=== PATIENT | male | born 1955 | race Caucasian/White ===

== ENCOUNTER 2021-11-22 08:16 | Outpatient (CLI) | payer MEDICARE, BC, SELFPAY ==
[2021-11-22 08:48] LABS: Creatinine* 1.1 mg/dL (0.5-1.5); Estimated Glomerular Filt Rate 75 ml/min
--- NOTE | 2021-11-22 09:00 | CRLHL7_ITS ---
For Patients: As a result of the Century Cures Act, medical imaging exams and procedure reports are released immediately into your electronic medical record. You may view this report before your referring provider. If you have questions, please contact your health care provider. Indication: ABD PAIN HX HODGKINS LYMPHOMA Technique: Postcontrast CT abdomen and pelvis. 116 cc Isovue 370 intravenous contrast. Please note that all CT scans at this facility use dose modulation, iterative reconstruction, and/or weight-based dosing when appropriate to reduce radiation dose to as low as reasonably achievable. Comparison: 09/14/2021 Findings: Minimal scarring in both lung bases. No pleural effusion. Postoperative changes of aortic aneurysm repair and aortic valve repair. No intrahepatic mass. Mild hepatic steatosis. No stigmata of cirrhosis. Gallbladder is normal. No calcified gallstones or biliary obstruction. Adrenal glands are normal. Spleen is unremarkable. Incidental splenule is present. There is mild atrophy of the pancreas. No hiatal hernia. Simple cyst lateral aspect right kidney measuring 1.6 cm. Sub centimeters cyst lower pole left kidney. No hydronephrosis. Vascular calcifications within the lower aorta and common iliac arteries. The bladder is normal. Prostate is mildly prominent with coarse calcifications. Postoperative changes of partial colectomy with intact anastomosis in the midline of the pelvis. No bowel obstruction or free air. No free fluid or abscess. Normal appendix. Stable appearance of the inguinal canal bilaterally. The ureters are normal. No suspicious lymph nodes. Stable superficial fluid collection associated with the midline abdominal incision measuring 4.6 x 2.5 cm. Stable benign bone island within the left medial pubic bone. Similar bone islands also within the left iliac bone. 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 Degenerative changes both hips. Impression: No intra-abdominal or intrapelvic adenopathy. No splenomegaly. No significant change in the postoperative seroma involving the anterior abdominal wall. Chronic elevation right hemidiaphragm. No hepatic mass or ascites. Stable postoperative changes partial colectomy without bowel obstruction or inflammatory change. Please note that all CT scans at this facility use dose modulation, iterative reconstruction, and/or weight-based dosing when appropriate to reduce radiation dose to as low as reasonably achievable. Dictated by Shabbir King MD @ 11/22/2021 10:26:07 AM (Electronically Signed)
== END 2021-11-22 08:17 | disposition home or self-care (01) ==
LOC: CT 08:19
PROVIDERS: PCP Internal Medicine; Visit Provider Surgery
DX: R10.9 Unspecified abdominal pain (principal)
CPT/HCPCS: 36415; 74177; 82565; Q9967

== ENCOUNTER 2021-12-11 10:00 | Outpatient (CLI) | payer MEDICARE, BC, SELFPAY ==
--- NOTE | 2021-12-11 11:38 | W.ANESCHARGE ---
Anesthesia Charges Start Date/Time Anesthesia Start Date: 12/11/21 Anesthesia Start Time: 10:58 Stop Date/Time Anesthesia Stop Date: 12/11/21 Anesthesia Stop Time: 11:34 Summary Emergency: No
== END 2021-12-11 10:01 | disposition home or self-care (01) ==
LOC: OP CLINIC 10:01
PROVIDERS: PCP Internal Medicine; Visit Provider Surgery
DX: Z12.11 Encounter for screening for malignant neoplasm of colon (principal); K63.5 Polyp of colon; Z86.010 Personal history of colon polyps
CPT/HCPCS: 00811; 45385; 88305; J2704

== ENCOUNTER 2021-12-19 10:22 | Outpatient (CLI) | payer MEDICARE, BC, SELFPAY ==
--- NOTE | 2021-12-19 11:00 | CRLHL7_ITS ---
For Patients: As a result of the Century Cures Act, medical imaging exams and procedure reports are released immediately into your electronic medical record. You may view this report before your referring provider. If you have questions, please contact your health care provider. INDICATION: LEFT SIDE TONSIL PAIN, DYSPHAGIA COMPARISON: none TECHNIQUE: A CT volumetric acquisition was performed of the neck during intravenous infusion of 116 cc of Isovue-370 nonionic intravenous contrast. Please note that all CT scans at this facility use dose modulation, iterative reconstruction, and/or weight-based dosing when appropriate to reduce radiation dose to as low as reasonably achievable. FINDINGS: The CT images demonstrate normal aeration of the mastoid air cells and middle ear cavities. Mild mucosal thickening within the inferior maxillary sinuses. No nasal polyps. The parotid and submandibular glands are of normal size and have uniform enhancement. The oropharynx appears normal. The valleculae, epiglottis, aryepiglottic folds and piriform sinuses appear normal. There is a normal appearance of the larynx and subglottic trachea. The thyroid gland is of normal size and has uniform density. There is no evidence of lymphadenopathy within the anterior and posterior cervical triangles or within the supraclavicular region. The lung apices are clear. Postop changes aortic dissection repair. Degenerative changes. No fracture. IMPRESSION: Mild bilateral maxillary sinus disease. Postop changes aortic dissection repair. No cervical adenopathy. No tonsillar abscess. Please note that all CT scans at this facility use dose modulation, iterative reconstruction, and/or weight-based dosing when appropriate to reduce radiation dose to as low as reasonably achievable. Dictated by Shabbir King MD @ 12/19/2021 11:22:39 AM (Electronically Signed)
== END 2021-12-19 10:23 | disposition home or self-care (01) ==
LOC: CT 10:22
PROVIDERS: PCP Internal Medicine; Visit Provider Otolaryngology
DX: R13.10 Dysphagia, unspecified (principal); J32.0 Chronic maxillary sinusitis; R07.0 Pain in throat
CPT/HCPCS: 70491; Q9967

== ENCOUNTER 2022-07-05 11:25 | Outpatient (CLI) | payer MEDICARE, BC, SELFPAY | END 2022-07-05 11:26 | disposition home or self-care (01) | LOC: NFLDREF 07-06 10:11 | PROVIDERS: PCP Internal Medicine; Referring Provider Internal Medicine; Visit Provider Internal Medicine | DX: Z51.81 Encounter for therapeutic drug level monitoring (principal); Z79.01 Long term (current) use of anticoagulants | CPT/HCPCS: 85610 ==

== ENCOUNTER 2022-08-09 09:28 | Outpatient (CLI) | payer MEDICARE, BC, SELFPAY | END 2022-08-09 09:29 | disposition home or self-care (01) | LOC: NFLDREF 21:48 | PROVIDERS: PCP Internal Medicine; Referring Provider Internal Medicine; Visit Provider Internal Medicine | DX: Z51.81 Encounter for therapeutic drug level monitoring (principal); Z79.01 Long term (current) use of anticoagulants | CPT/HCPCS: 85610 ==

== ENCOUNTER 2022-11-06 09:59 | Outpatient (CLI) | payer MEDICARE, BC, SELFPAY | END 2022-11-06 10:00 | disposition home or self-care (01) | LOC: NFLDREF 11-07 13:59 | PROVIDERS: PCP Internal Medicine; Referring Provider Internal Medicine; Visit Provider Internal Medicine | DX: Z51.81 Encounter for therapeutic drug level monitoring (principal); Z79.01 Long term (current) use of anticoagulants | CPT/HCPCS: 85610 ==

== ENCOUNTER 2022-11-27 08:00 | Outpatient (CLI) | payer MEDICARE, BC, SELFPAY | END 2022-11-27 08:01 | disposition home or self-care (01) | LOC: NFLDREF 11-28 08:34 | PROVIDERS: PCP Internal Medicine; Referring Provider Internal Medicine; Visit Provider Internal Medicine | DX: E78.5 Hyperlipidemia, unspecified (principal); I10 Essential (primary) hypertension; Z51.81 Encounter for therapeutic drug level monitoring; Z79.01 Long term (current) use of anticoagulants | CPT/HCPCS: 80048; 80061; 85610 ==

== ENCOUNTER 2022-12-03 13:49 | Outpatient (CLI) | payer MEDICARE, BC, SELFPAY | END 2022-12-03 13:50 | disposition home or self-care (01) | LOC: NFLDREF 17:32 | PROVIDERS: PCP Internal Medicine; Referring Provider Internal Medicine; Visit Provider Internal Medicine | DX: Z79.01 Long term (current) use of anticoagulants (principal); Z23 Encounter for immunization | CPT/HCPCS: 85610 ==

== ENCOUNTER 2022-12-18 13:55 | Outpatient (CLI) | payer MEDICARE, BC, SELFPAY | END 2022-12-18 13:56 | disposition home or self-care (01) | LOC: NFLDREF 12-20 06:48 | PROVIDERS: PCP Internal Medicine; Referring Provider Internal Medicine; Visit Provider Internal Medicine | DX: Z51.81 Encounter for therapeutic drug level monitoring (principal); Z79.01 Long term (current) use of anticoagulants | CPT/HCPCS: 85610 ==

== ENCOUNTER 2023-02-06 09:40 | Outpatient (CLI) | payer MEDICARE, BC, SELFPAY | END 2023-02-06 09:41 | disposition home or self-care (01) | LOC: NFLDREF 02-10 02:09 | PROVIDERS: PCP Internal Medicine; Referring Provider Internal Medicine; Visit Provider Internal Medicine | DX: Z51.81 Encounter for therapeutic drug level monitoring (principal); Z79.01 Long term (current) use of anticoagulants | CPT/HCPCS: 85610 ==

== ENCOUNTER 2023-03-05 15:48 | Emergency (ER) | payer MEDICARE, BC, SELFPAY ==
[2023-03-05] VITALS (11 sets, daily range): BP systolic 151–166; BP diastolic 78–89; PULSE 73–76; RESP 16; TEMP 36.4; O2SAT 93–96; BMI 34.7
--- NOTE | 2023-03-05 16:26 | CRLHL7_ITS ---
For Patients: As a result of the Century Cures Act, medical imaging exams and procedure reports are released immediately into your electronic medical record. You may view this report before your referring provider. If you have questions, please contact your health care provider. CLINICAL HISTORY: Intermittent confusion, dizziness. TECHNIQUE: Standard helical CT image acquisition of the brain was performed. COMPARISON: Head CT dated 07/19/2020. FINDINGS: There are mixed density holohemispheric subdural hemorrhages overlying both cerebral convexities, measuring up to 17mm in thickness on the left and 12mm in thickness on the right. Subdural hemorrhage is also seen extending along the interhemispheric falx. There is resulting mass effect upon the adjacent brain parenchyma manifested by effacement of adjacent cerebral sulci. There is very mild left to right midline shift, measuring approximately 2-3mm at the level of the septum pellucidum. Andres-white matter differentiation is preserved. No acute hydrocephalus. The calvarium is unremarkable. The orbits are unremarkable. Mild polypoid mucosal thickening of the maxillary sinuses. The mastoid air cells are unremarkable. 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 Thin subdural hemorrhage also extends along the interhemispheric falx. The results of this examination were discussed with Dr. Raymond at 1749 hours on 03/05/2023. Please note that all CT scans at this facility use dose modulation, iterative reconstruction, and/or weight-based dosing when appropriate to reduce radiation dose to as low as reasonably achievable. Dictated by Troy Walsh MD @ 03/05/2023 5:52:09 PM (Electronically Signed)
--- NOTE | 2023-03-05 16:41 | ED_ITS ---
HPI - General Adult General Date Seen: 03/05/23 Chief complaint: Dizziness/Vertigo Stated complaint: memory issues Time Seen by Provider: 03/05/23 16:07 Source: patient Mode of arrival: ambulatory Limitations: no limitations History of Present Illness HPI narrative: patient is a 68-year-old male with a history of aortic dissection with a stent on warfarin, hyperlipidemia, hypertension, psoriasis, depression presenting to emergency department for multiple complaints. For the past week he has been having a intermittent severe headache. Does not currently have the headache. Never had headaches like this before. Denies any head injuries. He went to see urgent care 5 days ago in the believes the symptoms were from the Wellbutrin that he was started on about 3 weeks prior. This medication was stopped. Patient's headaches have persisted since then. He has also had feelings of dizziness and felt like he was leaning forward all the time. He never felt like use both a fall though. Is feeling mildly weak in the lower extremities. His family is with him also and states that concerned because he has been having intermittent episodes of confusion over the past few days. Patient also admits to having this intermittent confusion. Denies fevers, chills, chest pain, lightheadedness, abdominal pain, blurry vision, numbness, Related Data Home Medications Medication Instructions Recorded Confirmed Medical Marijuana PO 11/22/21 02/28/23 acetaminophen 500 mg tablet 1,000 mg PO .Daily as needed PRN 11/22/21 02/28/23 atorvastatin 40 mg tablet 40 mg PO DAILY 11/22/21 02/28/23 cholecalciferol (vitamin D3) 25 2,000 unit PO DAILY 11/22/21 02/28/23 mcg (1,000 unit) tablet golimumab [Simponi ARIA] IV .[id number] 11/22/21 02/28/23 lansoprazole 30 mg capsule,delayed 30 mg PO DAILY PRN 11/22/21 02/28/23 release celecoxib 100 mg capsule 100 mg PO BID 04/22/22 02/28/23 folic acid 1 mg tablet 2 mg PO QDAY 04/22/22 02/28/23 venlafaxine 150 mg 150 mg PO QDAY 04/22/22 02/28/23 capsule,extended release 24 hr venlafaxine 75 mg capsule,extended 75 mg PO QDAY 04/22/22 02/28/23 release 24 hr methotrexate sodium 25 mg/mL mg subcut 12/03/22 02/28/23 injection solution mirtazapine 7.5 mg tablet 7.5 mg PO QPM 12/03/22 02/28/23 bupropion HCl 150 mg 24 hr tablet, 150 mg PO QAM 02/28/23 02/28/23 extended release Previous Rx's Medication Instructions Recorded furosemide 20 mg tablet (Lasix) 20 mg PO QDAY #90 tabs 03/14/22 triamcinolone acetonide 0.5 % 1 applic topical BID #15 grams 11/07/22 topical cream warfarin 5 mg tablet See Rx Instructions PO .COMPLEX 02/06/23 #140 tabs losartan 100 mg tablet 100 mg PO DAILY #90 tabs 02/07/23 labetalol 200 mg tablet 400 mg (2 x 200 mg) PO TID #540 02/24/23 tabs Allergies Allergy/AdvReac Type Severity Reaction Status Date / Time No Known Drug Allergies Allergy Verified 02/28/23 13:06 Review of Systems Status of ROS: Reports: 10 or more systems reviewed and unremarkable except as noted in History and below [facility] Medical History History of Hodgkin's lymphoma ?Z85.71 - Personal history of Hodgkin lymphoma (ICD-10) Surgical History History of aortic dissection ?Z86.79 - Personal history of other diseases of the circulatory system (ICD- 10) Status post aortic valve replacement ?Z95.2 - Presence of prosthetic heart valve (ICD-10) History of colonoscopy ?Z98.890 - Other specified postprocedural states (ICD-10) History of aortic valve repair ?Z98.890 - Other specified postprocedural states (ICD-10) ?Z86.79 - Personal history of other diseases of the circulatory system (ICD- 10) History of ankle surgery ?Z98.890 - Other specified postprocedural states (ICD-10) History of incisional hernia repair ?Z98.890 - Other specified postprocedural states (ICD-10) ?Z87.19 - Personal history of other diseases of the digestive system (ICD-10) History of arthroscopy of shoulder ?Z98.890 - Other specified postprocedural states (ICD-10) History of surgery on wrist ?Z98.890 - Other specified postprocedural states (ICD-10) History of cataract surgery ?Z98.49 - Cataract extraction status, unspecified eye (ICD-10) History of colectomy ?Z90.49 - Acquired absence of other specified parts of digestive tract (ICD- 10) History of uvulectomy ?Z90.89 - Acquired absence of other organs (ICD-10) History of vasectomy ?Z98.52 - Vasectomy status (ICD-10) Status post aortic aneurysm repair ?Z98.890 - Other specified postprocedural states (ICD-10) ?Z86.79 - Personal history of other diseases of the circulatory system (ICD- 10) Social History What is your current living situation?: I presently have a place to live Problems where you live: no known problems In the past 12 months, utilities in danger of being shut off: no In past 12 months, lack of transportation kept you from medical appts, meetings, work, or getting things needed for daily living: no In the past 12 mos, have been you worried that your food would run out before you had money to buy more?: never true In the past 12 mos, the food you bought just didn't last and you didn't have money to buy more?: never true Smoking Status: Former smoker Do you use any of these nicotine containing products: None Second hand tobacco smoke exposure: No How often do you have a drink containing alcohol: 4 or more times a week How many standard drinks containing alcohol do you have on a typical day: 1 or 2 How often do you have six or more drinks on one occasion: Never AUDIT-C Alcohol total score: 4 Non-prescribed substance use: denies use Non-prescribed substance use details: marijuana gummies for psoriatic arthritis nightly. How often does anyone, including family, friends and others, physically hurt you : never How often does anyone, including family, friends and others, insult or talk down to you: never How often does anyone, including family, friends and others, threaten you with harm: never How often does anyone, including family, friends and others, scream or curse at you: never Little interest or pleasure in doing things: several days Feeling down, depressed, or hopeless: several days service: No Exam Narrative: Exam Narrative: Const: Well-nourished, Well-developed, in mild distress Eyes: PERRL, no conjunctival injection, and symmetrical lids HENT: Atraumatic external nose and ears. Moist mucous membranes. Neck: Symmetric, trachea midline, No thyromegaly. CVS: RRR, No murmurs or gallops. Peripheral pulses 2+ and equal in all extremities RESP: Unlabored respiratory effort. Clear to auscultation bilaterally. GI: Nontender/Nondistended, No rebound or guarding. MSK:Extremities w/o deformity, Normal Active ROM Skin: Warm, Dry. No rashes or lesions. Neuro: Normal Muscle tone, Cranial nerves 2-12 grossly intact, normal radha l-to-roe, normal [id number], normal gait, normal strength 5/5 upper lower extremities bilaterally, normal sensation upper and lower extremities bilaterally, normal rapid alternating movements. Psych: Awake, Alert, & Oriented x3. Appropriate mood and affect. Const: Vital Signs, click to edit/add: Vital Signs - 24 hr 03/05/23 16:01 03/05/23 16:54 03/05/23 17:00 Temperature 97.6 F Pulse Rate 75 74 Pulse Rate [Pulse Oximeter] 75 Respiratory Rate 16 Blood Pressure Blood Pressure [Ri ght Upper Arm] 157/78 H Pulse Oximetry [address] [facility] 03/05/23 17:01 03/05/23 17:15 03/05/23 17:30 Temperature Pulse Rate 74 76 75 Pulse Rate [Pulse Oximeter] Respiratory Rate Blood Pressure 158/85 H Blood Pressure [Ri ght Upper Arm] Pulse Oximetry 94 93 94 Oxygen Delivery Ia thod 03/05/23 17:32 03/05/23 17:45 03/05/23 18:00 Temperature Pulse Rate 73 73 74 Pulse Rate [Pulse Oximeter] Respiratory Rate Blood Pressure 161/88 H Blood Pressure [Ri ght Upper Arm] Pulse Oximetry 95 [address] [facility] 03/05/23 18:02 03/05/23 18:06 Temperature Pulse Rate 73 Pulse Rate [Pulse Oximeter] Respiratory Rate Blood Pressure 166/89 H Blood Pressure [Ri ght Upper Arm] 158/85 H Pulse Oximetry 94 Oxygen Delivery Me thod Course Vital Signs Vital signs: Initial Vital Signs Temperature 97.6 F 03/05/23 16:01 Temperature Source Temporal Artery Scan 03/05/23 16:01 Pulse Rate 75 03/05/23 16:01 Pulse Rhythm Regular 03/05/23 16:01 Respiratory Rate 16 03/05/23 16:01 Blood Pressure 157/78 H 03/05/23 16:01 Blood Pressure Mean 104 03/05/23 16:01 Blood Pressure Position Supine 03/05/23 16:01 Pulse Oximetry 96 03/05/23 16:01 Oxygen Delivery Method Room Air 03/05/23 16:01 Vital Signs Temperature 97.6 F 03/05/23 16:01 Pulse Rate 75 03/05/23 16:01 Respiratory Rate 16 03/05/23 16:01 Blood Pressure 157/78 H 03/05/23 16:01 Pulse Oximetry 96 03/05/23 16:01 Oxygen Delivery Method Room Air 03/05/23 16:01 Temperature 97.6 F 03/05/23 16:01 Pulse Rate 73 03/05/23 18:02 Respiratory Rate 16 03/05/23 16:01 Blood Pressure 158/85 H 03/05/23 18:06 Pulse Oximetry 94 03/05/23 18:02 Oxygen Delivery Method Room Air 03/05/23 16:01 Medical Decision Making [facility] Narrative Medical decision making narrative: patient is a 68-year-old male presenting emergency department for headache, intermittent confusion, mild dizziness. Symptoms ongoing for the past week. They thought related to his Wellbutrin and stop that medication. Denies any recent falls. With his history there is some concern for intracranial injury. Also concern for electrolyte abnormalities. He does states he drinks a beer to every couple days and takes daily marijuana gummies at night for his arthritis pain. CBC, CMP, urinalysis, troponin, magnesium, COVID/flu, alcohol level, urine drug screen all ordered. Head CT also ordered. He is on warfarin for his aortic valve replacement large aortic dissection stent in the descending aorta. is lab work all returned showing no concerning abnormalities. 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 this is most likely the cause of his symptoms. I then when asked again he still does not remember having falling or hitting his head. His INR at this time is 1 point 9 7. Of note I looked in his history in his INRs over the past couple months have been more elevated with the highest in on 02/06/2023 being 4.27. I spoke to Dr. Segundo of [facility] and he accepted the patient for transfer. I spoke to the patient's and family about this and they are understandable. Patient is stable and I believe he is safe to go by ALS ground transport Lab Data Labs: Lab Results 03/05/23 03/05/23 03/05/23 Range/Units 16:37 16:43 16:45 WBC 6.05 (4.50-11.00) K/uL RBC 4.25 L (4.30-5.90) m/uL Hgb 13.8 (13.5-17.5) gm/dL Hct 41.1 (37.0-53.0) % MCV 97 (80-100) fL MCH 33 (26-34) pg MCHC 34 (32-36) gm/dL RDW Coeff of Dulce 13.5 (11.5-15.5) % Plt Count 124 L (140-440) K/uL Neut % (Auto) 60.5 (42.0-72.0) % Lymph % (Auto) 25.8 (20-44) % Lane % (Auto) 9.3 (0.0-11.0) % Eos % (Auto) 3.6 (0.0-7.0) % Baso % (Auto) 0.5 (0.0-3.0) % Neut # (Auto) 3.66 (1.7-7.0) K/uL Lymph # (Auto) 1.56 (0.90-2.90) K/uL Lane # (Auto) 0.60 (0.00-0.90) K/UL Eos # (Auto) 0.22 (0.00-0.50) K/uL Baso # (Auto) 0.03 (0.00-0.30) K/uL Abs Immat Gran (auto) 0.02 (0.00-0.30) K/uL Imm/Tot Granulo (auto) 0.3 % INR 1.97 H (0.91-1.10) Sodium 141 (135-149) mmol/L Potassium 3.8 (3.6-5.1) mmol/L Chloride 109 (96-114) mmol/L Carbon Dioxide 24 (20-32) mmol/L Anion Gap 8 (7-15) mEq/L BUN 22 (7-30) mg/dL Creatinine 0.9 (0.5-1.5) mg/dL Estimated Creat Clear 72.66 Estimated GFR 94 ml/min Glucose 106 (60-115) mg/dL Calcium 8.6 (8.4-10.6) mg/dL Magnesium 2.0 (1.5-2.6) mg/dL Total Bilirubin 1.3 (0.1-1.5) mg/dL AST 27 (12-35) U/L ALT 22 (4-50) U/L Alkaline Phosphatase 47 (40-150) U/L Troponin I 0.01 (0.01-0.04) ng/mL Total Protein 6.7 (6.0-8.3) g/dL Albumin 4.2 (3.3-5.0) g/dL TSH 0.965 (0.270-4.200) uIU/mL Urine Color Yellow (Yellow) Urine Appearance Clear (Clear) Urine pH 6.0 (5.0-8.5) Ur Specific [place] >= 1.030 (1.000-1.030) Urine Protein Negative (Negative) Urine Glucose (UA) Negative (Negative) Urine Ketones Negative (Negative) Urine Blood 1+ A (Negative) Urine Nitrite Negative (Negative) Urine Bilirubin Negative (Negative) Urine Urobilinogen 0.2 (0.2-1.0) Ur Leukocyte Esterase Negative (Negative) Urine RBC 2-5 A (0-2) Urine WBC 2-5 (0-5) Ur Squamous Epith Cells None (None-Few) Urine Bacteria Few A (None) Urine Opiates Screen Negative (Negative) Ur Oxycodone Screen Negative (Negative) Urine Methadone Screen Negative (Negative) Ur Propoxyphene Screen Negative (Negative) Ur Barbiturates Screen Negative (Negative) U Tricyclic Antidepress Negative (Negative) Ur Phencyclidine Scrn Negative (Negative) Ur Amphetamines Screen Negative (Negative) U Methamphetamines Scrn Negative (Negative) U Benzodiazepines Scrn Negative (Negative) Urine Cocaine Screen Negative (Negative) U Marijuana (THC) Screen POSITIVE A (Negative) Ur Drug Screen Comment See Note Ethyl Alcohol < 0.01 L (0.01-0.03) % SARS-CoV-2 (PCR) Negative SARS-CoV-2 (Negative) Influenza Type A (PCR) Negative PCR FLU A (Negative) Influenza Type B (PCR) Negative PCR FLU B (Negative) Lab Acknowledgement 03/05/23 Range/Units 16:46 WBC (4.50-11.00) K/uL RBC (4.30-5.90) m/uL Hgb (13.5-17.5) gm/dL Hct (37.0-53.0) % MCV (80-100) fL MCH (26-34) pg MCHC (32-36) gm/dL RDW Coeff of Dulce (11.5-15.5) % Plt Count (140-440) K/uL Neut % (Auto) (42.0-72.0) % Lymph % (Auto) (20-44) % Lane % (Auto) (0.0-11.0) % Eos % (Auto) (0.0-7.0) % Baso % (Auto) (0.0-3.0) % Neut # (Auto) (1.7-7.0) K/uL Lymph # (Auto) (0.90-2.90) K/uL Lane # (Auto) (0.00-0.90) K/UL Eos # (Auto) (0.00-0.50) K/uL Baso # (Auto) (0.00-0.30) K/uL Abs Immat Gran (auto) (0.00-0.30) K/uL Imm/Tot Granulo (auto) % INR (0.91-1.10) Sodium (135-149) mmol/L Potassium (3.6-5.1) mmol/L Chloride (96-114) mmol/L Carbon Dioxide (20-32) mmol/L Anion Gap (7-15) mEq/L BUN (7-30) mg/dL Creatinine (0.5-1.5) mg/dL Estimated Creat Clear Estimated GFR ml/min Glucose (60-115) mg/dL Calcium (8.4-10.6) mg/dL Magnesium (1.5-2.6) mg/dL Total Bilirubin (0.1-1.5) mg/dL AST (12-35) U/L ALT (4-50) U/L Alkaline Phosphatase (40-150) U/L Troponin I (0.01-0.04) ng/mL Total Protein (6.0-8.3) g/dL Albumin (3.3-5.0) g/dL TSH (0.270-4.200) uIU/mL Urine Color (Yellow) Urine Appearance (Clear) Urine pH (5.0-8.5) Ur Specific [place] (1.000-1.030) Urine Protein (Negative) Urine Glucose (UA) (Negative) Urine Ketones (Negative) Urine Blood (Negative) Urine Nitrite (Negative) Urine Bilirubin (Negative) Urine Urobilinogen (0.2-1.0) Ur Leukocyte Esterase (Negative) Urine RBC (0-2) Urine WBC (0-5) Ur Squamous Epith Cells (None-Few) Urine Bacteria (None) Urine Opiates Screen (Negative) Ur Oxycodone Screen (Negative) Urine Methadone Screen (Negative) Ur Propoxyphene Screen (Negative) Ur Barbiturates Screen (Negative) U Tricyclic Antidepress (Negative) Ur Phencyclidine Scrn (Negative) Ur Amphetamines Screen (Negative) U Methamphetamines Scrn (Negative) U Benzodiazepines Scrn (Negative) Urine Cocaine Screen (Negative) U Marijuana (THC) Screen (Negative) Ur Drug Screen Comment Ethyl Alcohol (0.01-0.03) % SARS-CoV-2 (PCR) (Negative) Influenza Type A (PCR) (Negative) Influenza Type B (PCR) (Negative) Lab Acknowledgement Test Added Imaging Data CT scan - head: Radiologist's impression: Large acute on chronic subdural hemorrhages overlying both cerebral convexities, measuring 17mm in thickness on the left and 12mm in thickness on the right, with resulting mass effect upon the adjacent brain parenchyma and 2-3mm of [id number] midline shift. Thin subdural hemorrhage also extends along the interhemispheric falx. The results of this examination were discussed with Dr. Raymond at 1749 hours on 03/05/2023. Please note that all CT scans at this facility use dose modulation, iterative reconstruction, and/or weight-based dosing when appropriate to reduce radiation dose to as low as reasonably achievable. Dictated by Troy Walsh MD @ 03/05/2023 5:52:09 PM ECG Data Attestation: I personally reviewed and interpreted this ECG as follows: Interpretation: normal sinus rhythm the rate 77 beats per minute, no obvious ST or T-wave abnormalities, normal axis. Appears to have a prolonged QT Discharge Plan Discharge Clinical Impression: Acute subdural hematoma Patient Disposition: Xfer Other Discharge Location: [facility] Condition: Stable Prescriptions: No Action atorvastatin 40 mg tablet 40 mg PO DAILY acetaminophen 500 mg tablet 1,000 mg PO .Daily as needed PRN Rx Instructions: NO MORE THAN 4000 MG/DAY cholecalciferol (vitamin D3) 25 mcg (1,000 unit) tablet 2,000 unit PO DAILY lansoprazole 30 mg capsule,delayed release(DR/EC) 30 mg PO DAILY PRN golimumab [Simponi ARIA] IV .O1[facility] PO celecoxib 100 mg capsule 100 mg PO BID folic acid 1 mg tablet 2 mg PO QDAY Patient Comments: TAKE 2 TABLETS BY MOUTH EVERY DAY venlafaxine 75 mg capsule,extended release 24hr 75 mg PO QDAY venlafaxine 150 mg capsule,extended release 24hr 150 mg PO QDAY triamcinolone acetonide 0.5 % cream 1 applic topical BID Qty: 15 0RF bupropion HCl 150 mg tablet extended release 24 hr 150 mg PO QAM mirtazapine 7.5 mg tablet 7.5 mg PO QPM methotrexate sodium 25 mg/mL solution subcut furosemide [Lasix] 20 mg tablet 20 mg PO QDAY Qty: 90 3RF warfarin 5 mg tablet See Rx Instructions PO .COMPLEX Qty: 140 0RF Protocol: Dose Management Condition: Friday Dose/Route: 7.5 mg Instruction: 1.5 x 5 mg tablets Condition: Friday Dose/Route: 10 mg Instruction: 2 x 5 mg tablets Condition: Friday Dose/Route: 7.5 mg Instruction: 1.5 x 5 mg tablets Condition: Friday Dose/Route: 7.5 mg Instruction: 1.5 x 5 mg tablets Condition: Dose/Route: 10 mg Instruction: 2 x 5 mg tablets Condition: Friday Dose/Route: 7.5 mg Instruction: 1.5 x 5 mg tablets Condition: Friday Dose/Route: 7.5 mg Instruction: 1.5 x 5 mg tablets Protocol Text: Adjustment Start Date: 02/06/23 INR Value: 4.27 INR Date: 02/06/23 Recheck Date: 02/20/23 Rx Instructions: 10mg on , 7.5mg the rest of the week losartan 100 mg tablet 100 mg PO DAILY Qty: 90 0RF labetalol 200 mg tablet 400 mg PO TID Qty: 540 0RF Stand Alone Forms: [employer] Info Instructions
[2023-03-05 16:43] LABS: Basophils Absolute Auto 0.03 K/uL (0.00-0.30); Basophils Percent Auto 0.5 % (0.0-3.0); Eosinophils Absolute Auto 0.22 K/uL (0.00-0.50); Eosinophils Percent Auto 3.6 % (0.0-7.0); Hematocrit 41.1 % (37.0-53.0); Hemoglobin* 13.8 gm/dL (13.5-17.5); Immature Granulocytes Abs Auto 0.02 K/uL (0.00-0.30); Immature Granulocytes Pct Auto 0.3 %; Lymphocytes Absolute Auto 1.56 K/uL (0.90-2.90); Lymphocytes Percent Auto 25.8 % (20-44); Mean Corpuscular HGB Conc 34 gm/dL (32-36); Mean Corpuscular Hemoglobin 33 pg (26-34); Mean Corpuscular Volume 97 fL (80-100); Monocytes Percent Auto 9.3 % (0.0-11.0); Neutrophils Absolute Auto 3.66 K/uL (1.7-7.0); Neutrophils Percent Auto 60.5 % (42.0-72.0); Platelet Count* 124 K/uL (140-440); RDW Coefficient of Variation % 13.5 % (11.5-15.5); Red Blood Count 4.25 m/uL (4.30-5.90); White Blood Count* 6.05 K/uL (4.50-11.00)
[2023-03-05 16:44] LABS: Slide Review Reflex No
[2023-03-05 16:58] LABS: Albumin* 4.2 g/dL (3.3-5.0)
[2023-03-05 16:59] LABS: Chloride* 109 mmol/L (96-114); Potassium* 3.8 mmol/L (3.6-5.1); Sodium* 141 mmol/L (135-149)
[2023-03-05 17:01] LABS: Anion Gap 8 mEq/L (7-15); Aspartate Amino Transferase* 27 U/L (12-35); Bilirubin Total* 1.3 mg/dL (0.1-1.5); Carbon Dioxide* 24 mmol/L (20-32); Creatinine* 0.9 mg/dL (0.5-1.5); Est. Creatinine Clearance* 72.66; Estimated Glomerular Filt Rate 94 ml/min
[2023-03-05 17:02] LABS: Alanine Aminotransferase* 22 U/L (4-50); Alkaline Phosphatase* 47 U/L (40-150); Blood Urea Nitrogen* 22 mg/dL (7-30); Calcium* 8.6 mg/dL (8.4-10.6); Glucose* 106 mg/dL (60-115); Total Protein* 6.7 g/dL (6.0-8.3)
[2023-03-05 17:06] LABS: Appearance Urine Clear (Clear); Bilirubin Urine Negative (Negative); Blood Urine 1+ (Negative); Color Urine Yellow (Yellow); Glucose Urine Negative (Negative); Ketones Urine Negative (Negative); Leukocyte Esterase Urine Negative (Negative); Nitrite Urine Negative (Negative); Protein Urine Negative (Negative); Specific Gravity Urine >= 1.030 (1.000-1.030); Urobilinogen Urine 0.2 (0.2-1.0)
[2023-03-05 17:06] LABS: Ethanol* < 0.01 % (0.01-0.03)
[2023-03-05 17:07] LABS: INR 1.97 (0.91-1.10); Prothrombin Time 23.9 Seconds
[2023-03-05 17:13] LABS: Amphetamine Screen Urine Negative (Negative); Barbiturate Screen Urine Negative (Negative); Benzodiazepines Screen Urine Negative (Negative); Cannabinoid Screen Urine POSITIVE (Negative); Cocaine Screen Urine Negative (Negative); Methadone Screen Urine Negative (Negative); Methamphetamines Screen Urine Negative (Negative); Opiate Screen Urine Negative (Negative); Oxycodone Screen Urine Negative (Negative); Phencyclidine Screen Urine Negative (Negative); Tricyclic Antidepressant Urine Negative (Negative)
[2023-03-05 17:14] LABS: Troponin I* 0.01 ng/mL (0.01-0.04)
[2023-03-05 17:31] LABS: Bacteria Urine Few
[2023-03-05 17:41] LABS: PCR FLU A Negative PCR FLU A (Negative); PCR FLU B Negative PCR FLU B (Negative)
[2023-03-05 17:48] LABS: TSH With Reflex to FT4* 0.965 uIU/mL (0.270-4.200)
[2023-03-05 17:50] LABS: SARS PCR* Negative SARS-CoV-2 (Negative)
--- NOTE | 2023-03-05 18:17 | ED.NURSE ---
[facility] will be here in 10 minutes.
== END 2023-03-05 18:46 | disposition other institution (70) ==
PROVIDERS: Emergency Provider Student in an Organized Health Care Education/Training Program; PCP Internal Medicine
DX: I62.01 Nontraumatic acute subdural hemorrhage (principal)
CPT/HCPCS: 36415; 70450; 80053; 80306; 81001; 82077; 83735; 84443; 84484; 85025; 85610; 87086; 87631; 93005; 96365; 99285; J1953

== ENCOUNTER 2023-04-25 11:10 | Outpatient (CLI) | payer MEDICARE, BC, SELFPAY ==
--- OUTSIDE RECORDS SUMMARY | 2023-05-01 16:05 | XMS_ITS | Encounter Summary ---
Author Name Unknown Organization [facility] Address [address] [address] Phone Care Team Providers Care Mail Technician Name Role Phone Jose Fountain MD Primary Care Provider Elsewhere, Pcp Primary Care Provider Gale Sanchez MD Primary Care Provider [phone] Encounter Details Date Type Department Care Team (Late st Contact Info) Description 06/15/2012 Telephone Call [facility] [address] [place] [address] Usman Vo MD [address] [place] [address] Social History Tobacco Use Types Packs/Day Years Used Date Smoking Tobacco: Never Smokeless Tobacco: Never Alcohol Use Standard Drinks/Week Comments No 0 (1 standard drink = 0.6 oz pur e alcohol) Sex and Gender Information Value Date Recorded Sex Assigned at Not on file Gender Identity Not on file Sexual Orientation Not on file documented as of this encounter Progress Notes * sUman Vo MD - 06/16/2012 8:18 AM CST [facility] Patient Name: RIC OVALLES Date of Service: 06/15/2012 : 1955 Age: 57Y Sex: M DC Site MRN: Patient Loc/Room #: / Provider: Usman Vo MD, Orthopaedics TELEPHONE CALL SITE: NA Phone call to Mr. Ovalles ([phone]). I spoke with Ric specifically about his shoulder. He said he did reasonably well over the weekend and seems to be progressing nicely. He is doing well withthe use of OxyContin supplemented with Lortab. He thinks he is getting better by the day. Overall, seems to be very happy with his pain relief to date. He will continue with his current scheduled followup appointments. I will see him at his regular appointment. He was happy with our discussion and his current level of pain relief. Usman Vo MD [facility] cc: Jose Fountain MD /DAVE Job ID: [id number] /[email or web address] Document ID: [id number] documented in this encounter Plan of Treatment Not on file documented as of this encounter Visit Diagnoses Not on filedocumented in this encounter Care Teams Mail Technician Relationship Specialty Start Date End Date Jose Fountain MD PCP - General Internal Medicine 10/11/11 11/01/14 Elsewhere, Pcp PCP - General 11/02/14 03/01/15 Gale Garcia MD [address] [id number] PCP - General Internal Medicine 03/02/15 documented as of this encounter
--- OUTSIDE RECORDS SUMMARY | 2023-05-01 16:05 | XMS_ITS | Encounter Summary ---
Author Name Unknown Organization [facility] Address [address], [place] [address] Care Team Providers Care Bush Hog Operator Name Role Phone Gale Garcia MD Primary Care Provider [phone]- [phone] Encounter Details Date Type Department Care Team Description 08/27/2016 Consent for Procedure/Treatme [facility] [address] [place] [address] Provider, Not On File [address] [place] [address] CONSENT FOR ANESTHESIA Social History Tobacco Use Types Packs/Day Years Used Date Smoking Tobacco: Former Smokeless Tobacco: Never Comments:quit 30 yrs ago Alcohol Use Standard Drinks/Week Comments Yes 3 (1 standard drink = 0.6 oz pur e alcohol) occas Sex and Gender Information Value Date Recorded Sex Assigned at Not on file Gender Identity Not on file Sexual Orientation Not on file documented as of this encounter Plan of Treatment Not on file documented as of this encounter Visit Diagnoses Not on filedocumented in this encounter Care Teams Bush Hog Operator Relationship Specialty Start Date End Date Gale Garcia MD [address] [place] [address] PCP - General Internal Medicine 08/23/16 documented as of this encounter
--- OUTSIDE RECORDS SUMMARY | 2023-05-01 16:05 | XMS_ITS | Clinical Summary ---
Author Name Unknown Organization [facility] [employer] [facility] Address [address] [address] Phone Care Team Providers Care State Superintendent Of Schools Name Role Phone Gale Garcia MD Primary Care Provider +1- [phone] Allergies No known active allergies Medications Medication Sig Dispensed Refills Start Date End Date Status vitamin D 1000 UNIT OR CAPS 1 capsule daily 30 0 04/11/2008 Active omeprazole (PRILOSEC) 20 MG capsule Take 1 Cap by mouth one time a day. 100 Cap 3 11/25/2011 Active venlafaxine-XR (EFFEXOR-XR) 150 MG 24 hour capsule Take 2 Caps by mouth one time a day. Swallow capsule whole; do not crush or chew. Capsule may be opened and sprinkled on food. 0 04/21/2013 Active atorvaSTATin (LIPITOR) 20 MG tablet Take 1 Tab by mouth one time a day. 90 Tab 4 04/21/2013 Active venlafaxine-XR (EFFEXOR-XR) 150 MG 24 hour capsule TAKE 1 CAPSULE BY MOUTH TWICE DAILY, SWALLOW WHOLE OR OPEN CAPSULE AND SPRINKLE ON FOOD, DO NOT CRUSH OR CHEW 180 Cap 1 10/01/2013 Active HYDROcodone-aceta minophen (NORCO) 10-325 MG per tablet Take 1-2 Tabs by mouth every eight hours as needed for Pain. Acetaminophen should be limited to 4000 mg per day. Max 6 tabs per day 180 Tab 5 11/01/2013 Active clonazePAM (KLONOPIN) 0.5 MG tablet TAKE 1 TABLET BY MOUTH TWICE DAILY NEEDED FOR ANXIETY 62 Tab 0 01/10/2014 Active warfarin (COUMADIN) 5 MG tablet TAKE 1 TABLET BY MOUTH EVERY EVENING. ADJUST DAILY DOSING PER ANTICOAGULATION MONITORING, NO TO EXCEED 70 TABLETS MOTHLY 70 Tab 0 01/24/2014 Active losartan (COZAAR) 25 MG tablet Take 1 Tab by mouth one time a day. 90 Tab 1 02/05/2014 Active adalimumab (HUMIRA) 40 MG/0.8ML injection Inject 40 mg under the skin every seven days. 4 Syringe 1 02/28/2014 Active metoprolol succinate (TOPROL-XL) 25 MG 24 hour extended-release tablet TAKE 1 TABLET BY MOUTH DAILY 90 Tab 0 09/02/2014 Active DULoxetine (CYMBALTA) 60 MG delayed release capsule TAKE 1 CAPSULE BY MOUTH DAILY 90 Cap 0 11/16/2014 Active traZODone (DESYREL) 50 MG tablet TAKE ONE-HALF TABLET BY MOUTH AT BEDTIME NEEDED FOR SLEEP 45 Tab 2 11/29/2014 Active celecoxib (CELEBREX) 200 MG capsule TAKE 1 CAPSULE BY MOUTH TWICE DAILY NEEDED FOR PAIN 180 Cap 0 01/24/2015 Active Active Problems Problem Noted Date Diagnosed Date Chronic Pain Syndrome - [facility] Agreement for Opioid Treatment - 10/21/2013 10/21/2013 Overview: Pain Dx: psoriatic arthritis Preferred Pharmacy: [facility] Comments: Opioid contract renewed 10/21/13 mgr. Recurrent major depression in partial remission 01/28/2013 Anxiety state 01/28/2013 Osteoarthritis of foot 08/31/2012 S/P shoulder surgery 07/01/2012 Special screening for malignant neoplasms, colon 01/20/2012 Shoulder pain 08/06/2011 Hypertension 10/01/2007 Overview: Did not tolerate atenolol Psoriasiform dermatitis 01/20/2007 Hyperlipidemia 09/29/2006 Overview: Low HDL, moderate LDL Arthropathy 09/13/2005 Overview: Started methotrexate 05/21-2009, Humira 01/20-present, LEF (12/2011-05/2012: no benefit) IMO Update Routine General Medical Exam ination at a Health Care Facility 07/14/2004 Overview: Medical review 04/21/2013 Colonoscopy 2007 polyps. 03/25 normal. Next 2016 Prosthetic Aortic Valve/ Ascending Aortic Graft 07/13/2004 Overview: [facility] AVR and ascending aortic graft on 07/14. On lifelong anticoagulation. 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 Tolerated nasal CPAP poorly. He had a previous UPP, but not done for SARITA or snoring. 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 Currently on COAT? (yes or no): yes a.OPIOID AGREEMENT last signed on date: 06/11/06 b.Last PAIN VISIT on date: 06/11/06 Infrequent use of lortab for joint pains. Low risk Other psoriasis 03/12/2005 01/20/2007 Immunizations Name Administration Dates Next Due Influenza (3+ Yrs) NPF-Multi Dose Vial (Flu Clin ic) 02/16/2008 Influenza Seasonal Inj A,B 01/09/2012,01/24/2009 Influenza Seasonal Inj A,B Preservative Free ,02/19/2006 Pneumococcal Conjugate, (Prevnar)13-valent 04/22 TD >7yrs With Preservative 07/12/2003,11/06/1992 Tdap (7 years and older) 04/17/2012 Surgical History Surgery Date Site/Laterality Comments HEART FLOW RESERVE MEASURE 08/03/2001 Cardiac cath. REMV PILONIDAL LESION SIMPLE 1982 Pilonidal cyst, ? type of procedure done. REPLACE AORT VALV,OPEN,PROST H VALV 08/04/2001 Replacement of ascending aorta, replacement of aortic valve. REPAIR OF NASAL SEPTUM 01/01/1991 Septoplasty, turbinate reduction and uvulectomy. REMOVAL OF SPERM DUCT(S) 08/1993 Vasectomy. DOPPLER ECHO HEART,COMPLETE 01/30/2006 COLONOSCOPY,BIOPSY 03/10/2007 CYSTOSCOPY,INSERT URETERAL STENT 01/06/2008 LAPAROSCOPY TAKE-DOWN SPLENI C FLEXURE WITH PARTIAL COLECTOMY 01/06/2008 LAP PARTIAL COLECTOMY/COLOPROCTOSTOMY 01/06/2008 CATARACT REMOVAL CATARACT REMOVAL with bilateral lens implants Medical History Medical History Date Comments Depressive disorder, not els ewhere classified 04/12/02 Switched to Effexor from [facility] (having problems with this). Other and unspecified hyperlipidemia 02/17/02 Unspecified sleep apnea 02/17/[address] [facility] 09/29/97. Tolerated nasal CPAP poorly. Observe. Acute ethmoidal sinusitis 02/17/02 Rx [facility] xicillin. Intermittent sinusitis. Aortic valve disorders 09/16/01 Bicuspid aortic valve with enlarged aortic root. S/P AVR ([facility] prosthesis) and replacement of ascending aorta on 08/04/01. Postoperative DVT. Chronic Coumadin use. NEEDS ANTIBIOTIC PROPHYLAXIS FOR INVASIVE PROCEDURES. Borderline glaucoma with ocu lar hypertension 09/15/00 Lumbago 08/30/97 Chronic. Physica l therapy. Original injury of back 1996. 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 maternal or patenal Pulmonary Disease Mother sleep apnea, o n nasal CPAP Cancer Paternal Aunt pancreatic Relation Status Comments Brother Alive Father Alive TAA repair; ASCV D; diabetes Maternal Grandfather Mother Alive TAA rupture and repair Paternal Aunt Sister Alive Social History Tobacco Use Types Packs/Day Years Used Date Smoking Tobacco: Former Smokeless Tobacco: Former Tobacco Cessation:Counseling Given: No Alcohol Use Standard Drinks/Week Comments No 0 (1 standard drink = 0.6 oz pur e alcohol) Sex and Gender Information Value Date Recorded Sex Assigned at Not on file Gender Identity Not on file Sexual Orientation Not on file Obstetrics History Last Filed Vital Signs Vital Sign Reading Time Taken Comments Blood Pressure 180/113 03/02/2015 3:37 PM FARM CONTRACTOR Pulse 94 03/02/2015 3:37 PM FARM CONTRACTOR Temperature 36.5 ??C (97.7 ??F) 03/02/2015 3:45 PM CS T Respiratory Rate 34 03/02/2015 3:37 PM FARM CONTRACTOR Oxygen Saturation 97% 03/02/2015 3:31 PM FARM CONTRACTOR Inhaled Oxygen Concentration - - Weight 99.8 kg (220 lb) 03/02/2015 1:36 PM FARM CONTRACTOR Height 177.8 cm (5' 10) 03/02/2015 1:36 PM FARM CONTRACTOR Body Mass Index 31.57 03/02/2015 1:36 PM FARM CONTRACTOR Plan of Treatment Health Maintenance Due Date Last Done Comments Shingrix (Zoster recombinant) vaccine (Standing Order) (1 of 2) 2007 RSV Vaccination (60+ yrs) (Abrysvo/Arexvy) (1 - 1-dose 60+ series) 2017 COVID-19 Vaccine (3 - Pfizer risk series) 07/22/2020 06/24/2020, 06/03/2020 Pneumococcal Vaccine: 65+ yrs (Standing Order) (2 of 2 - PPSV23 or PCV20) 2022 04/22/2013 TETANUS (Standing Order) 04/17/2022 013, 07/12/2003, 11/06/1992 Influenza Vaccine Seasonal (Standing Order) (#1) 2022 01/29/2013, 01/09/2012, 01/24/2009, Additional history exists PERTUSSIS (Standing Order) Completed 04/17/2012 HPV Vaccine (Standing Order) Aged Out No longer eligible based on patient's age to complete this topic Hepatitis B Vaccine (Standing Order) Aged Out No longer eligible based on patient's age to complete this topic Medical Devices Implanted Type Area Chief Medical Officer Device Identifier Shelf Expiration Date Model / Serial / Lot [id number] 17.5blue Filter [id number] - [id number] Implanted:Qty: 1 on 12/18/2011 by Tuan Adame MD at [facility] IOR Right: Eye SAMY [id number].175 / [id number] / [id number] 17.5blue Filter [id number].175 - [id number] Implanted:Qty: 1 on 01/15/2012 by Tuan Adame MD at [facility] IOR SAMY 06/11/2016 [id number].175 / [id number] / 4.75 Biocomp Swivel Lock [place] [id number] - [id number] Implanted:Qty: 1 on 06/03/2012 at [facility] Left: Shoulder ARTHREX 05/03/2014 [id number] / [id number] / [id number] Advance Directives For more information, please contact: [phone] Latest Code Status on File Code Status Date Activated Date Inactivated Comments None 09/21/2002 5:32 PM 09/21/2002 5:32 PM Care Teams State Superintendent Of Schools Relationship Specialty Start Date End Date Gale Garcia MD [facility] [address] [place] [address] PCP - General Internal Medicine 03/02/15
--- OUTSIDE RECORDS SUMMARY | 2023-05-01 16:05 | XMS_ITS | Encounter Summary ---
Author Name Unknown Organization [facility] Address [address] [address] Care Team Providers Care Embedded Developer Name Role Phone Gale Garcia MD Primary Care Provider +1- [phone] Encounter Details Date Type Department Care Team Description 08/27/2016 Consent for Procedure/Treatme [facility] [address] [place] [address] Provider, Not On File [address] [place] [address] CONSENT FOR PROCEDURE Social History Tobacco Use Types Packs/Day Years [...] on filedocumented in this encounter Care Teams Embedded Developer Relationship Specialty Start Date End Date Gale Garcia MD [address] [place] [address] PCP - General Internal Medicine 08/23/16 documented as of this encounter
--- OUTSIDE RECORDS SUMMARY | 2023-05-01 16:05 | XMS_ITS | Clinical Summary ---
Author Name Unknown Organization [facility] Address [address] [address] Care Team Providers Care Manager Commercial Sales Name Role Phone Gale Garcia MD Primary Care Provider +1- [phone] Source Comments You are receiving this document as you are listed as the primary care provider,follow-up provider, or the patient has been referred to you for consultation.This is in compliance with the Medicare and[facility] EHR Incentive Program,which states Providers who transition their patient to another setting of careor provider of care or refers their patient to another provider of care shouldprovide summary care record for each transition of care or referral. [facility] Allergies No known active allergies Medications Medication Sig Dispensed Refills Start Date End Date Status warfarin (COUMADIN) 5 MG tablet Take by mouth daily. 7.5mg on --, 5mg on other days 0 Active clonazePAM (KLONOPIN) 0.5 MG tablet Take 0.5 mg by mouth daily as needed for Anxiety. 0 Active labetalol (TRANDATE) 200 MG tablet Take 400 mg by mouth three times a day. 0 Active losartan (COZAAR) 100 MG tablet Take 100 mg by mouth daily. 0 Active ustekinumab (STELARA) 45 MG/0.5ML injection Inject 45 mg subcutaneously [id number]. 0 Active simvastatin (ZOCOR) 10 MG tablet Take 10 mg by mouth daily at bedtime. 0 Active DULoxetine (CYMBALTA) 60 MG capsule Take 60 mg by mouth daily. 0 Active traZODone (DESYREL) 50 MG tablet Take 25 mg by mouth daily at bedtime. 0 Active lansoprazole (PREVACID) 30 MG capsule Take 30 mg by mouth daily. 0 Active cholecalciferol (VITAMIN D3) 1000 UNITS tablet Take 1,000 Units by mouth daily. 0 Active celecoxib (CELEBREX) 200 MG capsule Take 200 mg by mouth two times a day. 0 Active neomycin-polymyxin -dexamethasone 0.1 % eye ointment Apply to both eye lids three times a day. Label for dc 3.5 g 3 08/27/2016 Active acetaminophen (TYLENOL) 325 MG tablet Take 325-650 mg by mouth every 4 hours as needed for Pain. 0 Active Social History Tobacco Use Types Packs/Day Years Used Date Smoking Tobacco: Former Smokeless Tobacco: Never Comments:quit 30 yrs ago Alcohol Use Standard Drinks/Week Comments Yes 3 (1 standard drink = 0.6 oz pur e alcohol) occas Sex and Gender Information Value Date Recorded Sex Assigned at Not on file Gender Identity Not on file Sexual Orientation Not on file Last Filed Vital Signs Vital Sign Reading Time Taken Comments Blood Pressure 148/79 08/27/2016 3:15 PM CDT Pulse 74 08/27/2016 3:15 PM CDT Temperature 36.4 ??C (97.6 ??F) 08/27/2016 2:32 PM CD T Respiratory Rate 16 08/27/2016 3:15 PM CDT Oxygen Saturation 98% 08/27/2016 3:15 PM CDT Inhaled Oxygen Concentration - - Weight 105.3 kg (232 lb 4 oz) 08/23/2016 12:07 P M CDT Height 177.8 cm (5' 10) 08/23/2016 12:07 PM CDT Body Mass Index 33.32 08/23/2016 12:07 PM CDT Plan of Treatment Health Maintenance Due Date Last Done Comments Colon Cancer Screening Plan Due 1955 Hep C Screening (Preventive Services) 1955 PSA Screening Discussion 1955 COVID-19 Vaccine (#1) 1957 Adult Preventive Visit 1975 DTaP/Tdap/Td (1 - Tdap) 01/22/1976 Cholesterol 01/22/1992 Zoster/Shingles (1 of 2) 2007 Pneumococcal 65+ Yrs (1 - PCV) 2022 Influenza (#1) 2022 HepA Aged Out No longer eligi ble based on patient's age to complete this topic HepB Aged Out No longer eligi ble based on patient's age to complete this topic Hib Aged Out No longer eligi ble based on patient's age to complete this topic IPV (Polio) Aged Out No longer eligi ble based on patient's age to complete this topic MCV4 Aged Out No longer eligi ble based on patient's age to complete this topic Care Teams Manager Commercial Sales Relationship Specialty Start Date End Date Gale Garcia MD [address] [place] [address] PCP - General Internal Medicine 08/23/16
--- OUTSIDE RECORDS SUMMARY | 2023-05-01 16:05 | XMS_ITS | Clinical Summary ---
Author Name Unknown Organization [employer] [facility] Address [place], [place] [address] Care Team Providers Care Die Maintenance Technician Name Role Phone Pcp, No Primary Care Provider Unavailabl e Allergies No known active allergies Medications Medication Sig Dispensed Refills Start Date End Date Status warfarin (COUMADIN) 5 mg tablet Take 5 mg by mouth once daily. 0 11/09/2016 Active STELARA 45 mg/0.5 mL syrg 0 09/25/2016 Active traZODone (DESYREL) 50 mg tablet 0 09/26/2016 Active simvastatin (ZOCOR) 10 mg tablet Take 10 mg by mouth once daily. 0 09/12/2016 Active losartan (COZAAR) 100 mg tablet Take 100 mg by mouth once daily. 0 08/31/2016 Active celecoxib (CELEBREX) 200 mg capsule Take 200 mg by mouth once daily with a meal. 0 10/08/2016 Active clonazePAM (KLONOPIN) 0.5 mg tablet Take 0.5 mg by mouth once daily. 0 11/07/2016 Active DULoxetine (CYMBALTA) 60 mg Delayed-release capsule Take 60 mg by mouth once daily. 0 09/04/2016 Active cholecalciferol (VITAMIN D3) 1,000 unit tablet Take 1,000 Units by mouth once daily. 0 Active acetaminophen (TYLENOL) 325 mg tablet Take 325-650 mg by mouth every 4 hours. 0 Active labetalol (TRANDATE) 200 mg tablet Take 400 mg by mouth 3 times daily. 0 Active lansoprazole (PREVACID) 30 mg capsule Take 30 mg by mouth once daily. 0 Active celecoxib (CELEBREX) 200 mg capsule Take 200 mg by mouth 2 times daily with meals. 0 Active Ustekinumab 45 mg/0.5 mL syrg Inject 45 mg subcutaneous every 12 weeks every 12 weeks. 0 Active folic acid 1 mg tablet Take 1 tablet by mouth once daily. 3 03/25/2017 Active methotrexate (RHEUMATREX) 2.5 mg tablet Take 3 tablets by mouth once weekly. Take 3 tablets by mouth once weekly, then increase to 4 tablets weekly, then 5 tablets weekly then remain at that dose per patient. 1 03/25/2017 Active sildenafil citrate (VIAGRA) 100 mg tabletIndications:E rectile dysfunction, unspecified erectile dysfunction type TAKE 1 TABLET BY MOUTH DAILY NEEDED. TAKE 30 MINUTES TO 4 HOURS BEFORE SEXUAL ACTIVITY. MAX DOSE 100 MG PER 24 HOURS 10 tablet 0 02/06/2018 Active Active Problems Problem Noted Date Diagnosed Date Peyronie disease 12/04/2016 Immunizations Name Administration Dates Next Due AMB Influenza, IIV4 PF (=>6 mos Flulaval,Fluzone Fluarix)(Flu Clinic Only) 01/27/2017 Social History Tobacco Use Types Packs/Day Years Used Date Smoking Tobacco: Never Smokeless Tobacco: Never Tobacco Cessation:Counseling Given: Yes Alcohol Use Standard Drinks/Week Comments No 0 (1 standard drink = 0.6 oz pur e alcohol) Sex and Gender Information Value Date Recorded Sex Assigned at Not on file Gender Identity Not on file Sexual Orientation Not on file Obstetrics History Last Filed Vital Signs Vital Sign Reading Time Taken Comments Blood Pressure 126/75 04/02/2017 10:53 AM FREIGHT BOOKER Pulse 64 04/02/2017 10:53 AM FREIGHT BOOKER Temperature 36.9 ??C (98.5 ??F) 04/02/2017 1 0:53 AM FREIGHT BOOKER Respiratory Rate 16 12/04/2016 8:14 AM CDT Oxygen Saturation 95% 04/02/2017 10: 53 AM FREIGHT BOOKER Inhaled Oxygen Concentration - - Weight 106.5 kg (234 lb 12.8 oz) 04/02/2017 10:53 AM FREIGHT BOOKER Patient weighed with shoes on. Height - - Body Mass Index - - Plan of Treatment Health Maintenance Due Date Last Done Comments Tdap 01/22/1968 Depression screening for age 12+ 1969 BMI (ht and wt on same day) for age 18+ 1975 Hepatitis C screening for age 18-79 1975 Tetanus booster 1977 Colonoscopy through age 75 2002 Lipids for age 45-75 2002 Zoster (shingles) series for age 50+ (1 of 2) 01/22/20 07 Pneumococcal series for age 65+ (1 of 1 - PCV) 022 COVID-19 vaccine series (2 - 2022- season) 3 12/20/2020 Influenza for age 65+ 12/13/2022 01/27/2017 Care Teams Die Maintenance Technician Relationship Specialty Start Date End Date Pcp, No . PCP - General 10/21/16
--- OUTSIDE RECORDS SUMMARY | 2023-05-01 16:06 | XMS_ITS | Encounter Summary ---
Author Name Unknown Organization [facility] Address [address] [place] [address] Care Team Providers Care Fur Weigher Name Role Phone Elsewhere, Pcp Primary Care Provider Unavailabl e Encounter Details Date Type Department Care Team (Latest Contact Info) Description 03/26/2023 9:26 AM COMMUNITY RELATIONS MANAGER - 03/26/2023 11:59 PM [facility] Hospital Encounter Department of Laboratory Medicine in [address] [phone] Bárbara Soto, JASON, C.N.P. [address] [place] [phone] Medication Therapy Boot Turner Not Anticoagulant; Arthritis Psoriatic (HCC) Discharge Disposition: Home or Self Care Social History Tobacco Use Types Packs/Day Years Used Date Smoking Tobacco: Never Smokeless Tobacco: Never Alcohol Use Standard Drinks/Week Comments Yes 2 (1 standard drink = 0.6 oz pur e alcohol) Humiliation, Afraid, Rape, and Kick questionnair e Answer Date Recorded Within the last year, have y ou been afraid of your partner or ex-partner? No 09/19/2022 Within the last year, have y ou been humiliated or emotionally abused in other ways by your partner or ex-partner? No Within the last year, have y ou been kicked, hit, slapped, or otherwise physically hurt by your partner or ex-partner? No 09/19/2022 Within the last year, have y ou been raped or forced to have any kind of sexual activity by your partner or ex-partner? No 09/19/2022 Social Connection and Isolat ion Panel [NHANES] Answer Date Recorded In a typical week, how many times do you talk on the phone with family, friends, or neighbors? More than three times a week 07/16/2022 How often do you get togethe r with friends or relatives? Twice a week 07/16/2022 How often do you attend chur ch or orthodoxy services? Never 07/16/2022 Do you belong to any clubs o r organizations such as lutheran groups, unions, fraternal or athletic groups, or school groups? Yes 07/16/2022 How often do you attend meet ings of the clubs or organizations you belong to? More than 4 times per year 07/16/2022 Are you , , di vorced, , never , or living with a partner? 07/16/2022 AUDIT-C Answer Date Recorded Q1: How often do you have a drink containing alcohol? 4 or more times a week 07/16/2022 Q2: How many drinks containi ng alcohol do you have on a typical day when you are drinking? 1 or 2 Q3: How often do you have si x or more drinks on one occasion? Never 07/16/2022 Overall Financial Resource Strain (CARDIA) Answe r Date Recorded How hard is it for you to pa y for the very basics like food, housing, medical care, and heating? Not hard at all 09/19/2022 [facility] - Occupational Stress Questionnaire Answer Date Recorded Do you feel stress - tense, restless, nervous, or anxious, or unable to sleep at night because your mind is troubled all the time - these days? Only a little 07/16/2022 Exercise Vital Sign Answer Date Recorde d On average, how many days pe r week do you engage in moderate to strenuous exercise (like a brisk walk)? 1 day 07/16/2022 On average, how many minutes do you engage in exercise at this level? 30 min 07/16/2022 Hunger Vital Sign Answer Date Recorded Within the past 12 months, y ou worried that your food would run out before you got the money to buy more. Never true 09/20/19 23 Within the past 12 months, t he food you bought just didn't last and you didn't have money to get more. Never true 09/19/2022 PRAPARE - Transportation Answer Date Re corded In the past 12 months, has l ack of transportation kept you from medical appointments or from getting medications? No 11/2022 In the past 12 months, has l ack of transportation kept you from meetings, work, or from getting things needed for daily living? No 09/19/2022 Nutrition Answer Date Recorded Nutrition: EVOO Fat Source Yes 07/16 On average, how many serving s of fruits and vegetables do you eat per day (serving size is equal to 1 cup or approximately the size of a tennis ball)? 2-3 07/16/2022 Dental Answer Date Recorded Dental: Regular Dentist Yes 06/01/19 Employment Answer Date Recorded Employment status Retired 07/16/2022 Housing Stability Answer Date Recorded What is your living situation today? I have a [facility] place to live 09/19/2022 Education Answer Date Recorded What is the highest level of school you have completed or the highest degree you have received? Master's degree (e.g., MA, MS, Starla, MEd, QUALITY PROCESS LEAD, DEBRA) 09/16/2018 Sex and Gender Information Value Date Recorded Sex Assigned at Male 10/08/2017 8:25 AM CDT Gender Identity Male 10/08/2017 8:25 AM CDT Sexual Orientation Straight 10/08/2017 8: 25 AM CDT documented as of this encounter Medications at Time of Discharge Medication Sig Dispensed Refills Start Date End Date acetaminophen (TYLENOL) 500 mg tablet Take 1,000 mg by mouth every 6 (six) hours as needed for pain. 0 amLODIPine (NORVASC) 10 mg tablet Take 10 mg by mouth daily. 0 03/11/2015 atorvastatin (LIPITOR) 40 mg tablet TAKE 1 TABLET BY MOUTH EVERY DAY 90 tablet 3 02/06/2023 cholecalciferol (VITAMIN D3) 1,000 Unit capsule Take 2,000 Units by mouth daily. 0 05/02/2014 desvenlafaxine (PRISTIQ) 50 mg 24 hr tablet Take 1 tablet by mouth daily. 0 03/04/2023 enoxaparin (LOVENOX) 100 mg/mL injection 2 (two) times a day. 0 03/17/2023 folic acid 1 mg tabletIndications:Ar thritis Psoriatic (HCC) Take 2 tablets (2,000 mcg total) by mouth daily. 180 tablet 3 09/26/2022 furosemide (LASIX) 20 mg tablet TAKE 1 TABLET BY MOUTH EVERY DAY 90 tablet 3 06/27/2022 labetaloL (NORMODYNE) 100 mg tablet Take 100 mg by mouth 2 (two) times a day. 0 03/14/2023 levETIRAcetam (KEPPRA) 1,000 mg tablet Take 1,000 mg by mouth 2 (two) times a day. 0 03/14/2023 loperamide (IMODIUM A-D) 2 mg tablet Take 1 mg by mouth 2 (two) times a day as needed. 0 methotrexate 25 mg/mL injectionIndications :Arthritis Psoriatic (HCC) Inject 0.7 mL (17.5 mg total) under the skin once a week. 10 mL 1 03/27/2023 mirtazapine (REMERON) 7.5 mg tablet Take 7.5 mg by mouth at bedtime. 0 01/16/2023 needle, disp, 27 gauge 27 gauge x 1/2 needleIndications:Ar thritis Psoriatic (HCC) For methotrexate injections. 12 each 2 09/26/2022 omeprazole (PriLOSEC) [address] capsule Take 20 mg by mouth as needed. 0 11/25/2011 sennosides-docusate sodium (Senna with Docusate Sodium) 8.6-50 mg per tablet Take 1 tablet by mouth at bedtime as needed. For constipation 0 10/04/2020 sildenafiL (VIAGRA) 50 mg tablet Take 1 tablet (50 mg total) by mouth daily as needed for erectile dysfunction. 20 tablet 2 05/22/2022 SQ 1 Ml Injection KitIndications:Arthr itis Psoriatic (HCC) For methotrexate injections 1 kit 3 09/26/2022 venlafaxine XR (EFFEXOR-XR) 150 mg 24 hr capsule 0 08/05/2021 venlafaxine XR (EFFEXOR-XR) 75 mg 24 hr capsule Take 225 mg by mouth daily. 0 09/22/2019 warfarin (Coumadin) 5 mg tablet Take 1.5-2 tablets (7.5-10 mg total) by mouth daily. 10 mg on , Th, Sat. 7.5 mg all other days 0 10/19/2020 warfarin (JANTOVEN) 1 mg tablet Take 3 mg by mouth. 0 03/14/2023 golimumab (Simponi) 50 mg/0.5 mL injectionIndications :Arthritis Psoriatic (HCC) Inject 50 mg (one syringe) under the skin every 30 (thirty) days. 0.5 mL 11 03/31/2023 04/17/2023 methotrexate 25 mg/mL injectionIndications :Arthritis Psoriatic (HCC) Inject 0.7 mL (17.5 mg total) under the skin once a week. 10 mL 1 09/26/2022 03/27/2023 documented as of this encounter Plan of Treatment Upcoming Encounters Date Type Department Care Team (Latest Contact Info) Description 05/28/2023 9:30 AM COMMUNITY RELATIONS MANAGER Clinical Communication Virtual Review in [address] [address] 05/30/2023 11:00 AM COMMUNITY RELATIONS MANAGER Appointment Department of Laboratory Medicine and Pathology, [facility], in [place], [place] [address] [place] [phone] Sole Read APRN, C.N.P., D.N.P. [address] [place] [phone] 05/30/2023 1:00 PM COMMUNITY RELATIONS MANAGER Office Visit Division of Hematology in [place], [place] [address] [place] [phone] Sole Read APRN, C.N.P., D.N.P. [address] [place] [phone] 06/17/2023 10:30 AM COMMUNITY RELATIONS MANAGER Clinical Communication Virtual Review in [place], [place] 200 [place] [address] 06/18/2023 2:00 PM COMMUNITY RELATIONS MANAGER Office Visit Division of Endocrinology in [place], [place] [address] [place] [phone] Get Ragland APRN, C.N.P., D.N.P. [address] [place] [phone] 06/25/2023 10:30 AM CDT Appointment Department of Laboratory Medicine in [address] [phone] Bárbara Soto APRN, C.N.P. [address] [place] [phone] documented as of this encounter Procedures Procedure Name Priority Date/Time Associated Diagnosis Comments SEDIMENTATION RATE, B Routine 03/26/2023 9:31 AM COMMUNITY RELATIONS MANAGER Arthritis Psoriatic (HCC) CBC WITH DIFFERENTIAL, B Routine 03/26/2023 9:31 AM COMMUNITY RELATIONS MANAGER Medication Therapy Boot Turner Not Anticoagulant C-REACTIVE PROTEIN (CRP), S/P Routine 03/26/2023 9:31 AM COMMUNITY RELATIONS MANAGER Arthritis Psoriatic (HCC) ASPARTATE AMINOTRANSFERASE (AST), S/P Routine 03/26/2023 9:31 AM COMMUNITY RELATIONS MANAGER Medication Therapy Care Home Not Anticoagulant CREATININE WITH EGFR, S/P Routine 03/26/2023 9:31 AM COMMUNITY RELATIONS MANAGER Medication Therapy Care Home Not Anticoagulant documented in this encounter Results * CRP (C-Reactive Protein) (03/26/2023 9:31 AM COMMUNITY RELATIONS MANAGER) C-Reactive Protein (CRP), P <3.0 <5.0 mg/L 03/26/2023 9:50 AM COMMUNITY RELATIONS MANAGER CNFL Blood (Blood, Venous) 03/26/2023 9:31 AM COMMUNITY RELATIONS MANAGER 03/26/2023 9:32 AM COMMUNITY RELATIONS MANAGER Darryl Sawant APRN.Sim. LAB BLOOD ADD-ON [facility] [address] [place] [id number], [facility] CNFL [facility] in [address] [address] * Sedimentation Rate (03/26/2023 9:31 AM COMMUNITY RELATIONS MANAGER) Sedimentation Rate, B 11 0 - 22 mm/1 h 03/26/2023 1:09 PM COMMUNITY RELATIONS MANAGER RDWG Blood (Blood, Venous) 03/26/2023 9:31 AM COMMUNITY RELATIONS MANAGER 03/26/2023 12:23 PM COMMUNITY RELATIONS MANAGER Bindu Sawant APRNN.Sim. LAB BLOOD ADD-ON Performing Organization Address City/[facility]/ZIP Co de Phone Number [facility] [address] [place] [id number], [facility] RDWG [facility] in [place] [address] [place] [phone] * Creatinine with Estimated GFR (03/26/2023 9:31 AM COMMUNITY RELATIONS MANAGER) Creatinine 1.16 0.74 - 1.35 mg/dL 03/26/2023 9:50 AM COMMUNITY RELATIONS MANAGER CNFL Estimated GFR (eGFR) 69 >=60 mL/min/BSA 03/26/2023 9:50 AM COMMUNITY RELATIONS MANAGER CNFL Comment: Estimated GFR calculated using the 2020 CKD_EPI creatinine equation. Blood (Blood, Venous) 03/26/2023 9:31 AM COMMUNITY RELATIONS MANAGER 03/26/2023 9:32 AM COMMUNITY RELATIONS MANAGER Bindu Sawant APRNN.P. LAB BLOOD ADD-ON [facility] [address] [place] [id number], [place] CNFL [facility] in [address] [address] * AST (Aspartate Aminotransferase) (03/26/2023 9:31 AM COMMUNITY RELATIONS MANAGER) Aspartate Aminotransferase (AST), P 24 8 - 48 U/L 03/26/2023 9:50 AM COMMUNITY RELATIONS MANAGER CNFL Blood (Blood, Venous) 03/26/2023 9:31 AM COMMUNITY RELATIONS MANAGER 03/26/2023 9:32 AM COMMUNITY RELATIONS MANAGER Bindu Sawant APRNNRebeccaPRebecca LAB BLOOD ADD-ON [facility] [address] [place] [address], [facility] CNFL [facility] [place] [address] * CBC with Differential, Blood (03/26/2023 9:31 AM COMMUNITY RELATIONS MANAGER) Pathologist [facility] Hemoglobin 14.0 13.2 - 16.6 g/dL 03/26/2023 9:43 AM COMMUNITY RELATIONS MANAGER CNFL Hematocrit 41.6 38.3 - 48.6 % 03/26/2023 9:43 AM COMMUNITY RELATIONS MANAGER CNFL Erythrocytes 4.40 4.35 - 5.65 x10(12)/L 03/26/2023 9:43 AM COMMUNITY RELATIONS MANAGER CNFL MCV 94.5 78.2 - 97.9 fL 03/26/2023 9:43 AM COMMUNITY RELATIONS MANAGER CNFL RBC Distrib Width 12.2 11.8 - 14.5 % 03/26/2023 9:43 AM COMMUNITY RELATIONS MANAGER CNFL Platelet Count 145 135 - 317 x10(9)/L 03/26/2023 9:43 AM COMMUNITY RELATIONS MANAGER CNFL Leukocytes 5.0 3.4 - 9.6 x10(9)/L 03/26/2023 9:43 AM COMMUNITY RELATIONS MANAGER CNFL Neutrophils 2.29 1.56 - 6.45 x10(9)/L 03/26/2023 9:43 AM COMMUNITY RELATIONS MANAGER CNFL Lymphocytes 1.77 0.95 - 3.07 x10(9)/L 03/26/2023 9:43 AM COMMUNITY RELATIONS MANAGER CNFL Monocytes 0.38 0.26 - 0.81 x10(9)/L 03/26/2023 9:43 AM COMMUNITY RELATIONS MANAGER CNFL Eosinophils 0.48 0.03 - 0.48 x10(9)/L 03/26/2023 9:43 AM COMMUNITY RELATIONS MANAGER CNFL Basophils 0.04 0.01 - 0.08 x10(9)/L 03/26/2023 9:43 AM COMMUNITY RELATIONS MANAGER CNFL Blood (Blood, Venous) 03/26/2023 9:31 AM COMMUNITY RELATIONS MANAGER 03/26/2023 9:32 AM COMMUNITY RELATIONS MANAGER Bárbara Soto APRN C.N.P. LAB BLOOD ADD-ON [facility] [address] [place] [address], [facility] CNFL [facility] [place] [address] documented in this encounter Visit Diagnoses Diagnosis Medication Therapy Boot Turner Not Anticoagulant Arthritis Psoriatic (HCC) documented in this encounter Additional Health Concerns Infection Onset Date Last Indicated Resolved Time Protective Environment 07/19/2022 07/19/2022 Assessment Noted Time PHQ-9 Depression Total Score: 0 01/01/20 16 12:53 PM CDT documented as of this encounter Care Teams Fur Weigher Relationship Specialty Start Date End Date Elsewhere, Pcp PCP - General Family Medicine 11/27/20 documented as of this encounter
--- OUTSIDE RECORDS SUMMARY | 2023-05-01 16:06 | XMS_ITS ---
Author Name Unknown Organization [facility] Address [address] [place] [address] Care Team Providers Care Bell Staff Name Role Phone Unavailable Unavailable Unavailable Surgery Details Not on file Complications Check Surgery Details section. Procedure Estimated Blood Loss Check Surgery Details section. Procedure Findings Check Surgery Details section. Procedure Specimens Taken Check Surgery Details section.
--- OUTSIDE RECORDS SUMMARY | 2023-05-01 16:06 | XMS_ITS | Encounter Summary ---
Author Name Unknown Organization [facility] Address [address] [place] [address] Care Team Providers Care Rod Placer Name Role Phone Elsewhere, Pcp Primary Care Provider Unavailabl e Reason for Referral * MRI/CAT/PET Scan (Routine) - Closed Specialty Diagnoses / Procedures Referred By Contac t Referred To Contact Radiology Diagnoses Traumatic Subdural Hemorrhage With Loss Of Consciousness Status Unknown Initial Encounter (HCC) Craniotomy Status Post Procedures CT Head without IV Contrast Nazanin Aguirre, P.A. [address] [place] [phone] [facility] Referral ID Status Reason Start Date Expiration Date Visits Re quested Visits Authorized [id number] Closed 04/04/2023 04/03/2024 1 1 GE DECKHAND Reason for Visit * MRI/CAT/PET Scan (Routine) - Closed Specialty Diagnoses / Procedures Referred By Contac t Referred To Contact Radiology Diagnoses Traumatic Subdural Hemorrhage With Loss Of Consciousness Status Unknown Initial Encounter (HCC) Craniotomy Status Post Procedures CT Head without IV Contrast Nazanin Aguirre, P.A. [address] [place] [phone] [facility] Referral ID Status Reason Start Date Expiration Date Visits Re quested Visits Authorized [id number] Closed 04/04/2023 04/03/2024 1 1 Encounter Details Date Type Department Care Team (Latest Contact Info) Description 04/24/2023 1:06 PM DREDGE DECKHAND - 04/24/2023 11:59 PM DREDGE DECKHAND Hospital Encounter Department of Radiology, [facility], in [place], [place] [address] [place] [phone] Nazanin Aguirre, PRebeccaARebecca [address] [place] [phone] Traumatic Subdural Hemorrhage With Loss Of Consciousness Status Unknown Initial Encounter (HCC); Craniotomy Status Post Discharge Disposition: Home or Self Care Social [...] often do you attend chur ch or druze services? Never 07/16/2022 Do you belong to any clubs o r organizations such as mormon groups, unions, fraternal or athletic groups, or [...] when you are drinking? 1 or 2 3 Q3: How often do you have si x or more drinks on one occasion? Never 07/16/2022 Overall Financial Resource Strain (CARDIA) Answe r Date Recorded How hard is it for you to pa y for the very basics like food, housing, medical care, and heating? Not hard at all 09/19/2022 [facility] - Occupational [...] Date Recorded Dental: Regular Dentist Yes 06/01/19 21 Employment Answer Date Recorded Employment status Retired 07/16/2022 Housing Stability Answer Date Recorded What is your living situation today? I have a [facility] place to live 09/19/2022 Education Answer Date Recorded What is the highest level of school you have completed or the highest degree you have received? Master's degree (e.g., MA, MS, Starla, MEd, LENS INSPECTOR, DEBRA) 09/16/2018 Sex and Gender Information Value [...] (six) hours as needed for pain. 0 alcohol swabs (Alcohol Prep) pads, medicated As directed 100 each 04/10/2023 amLODIPine (NORVASC) 10 mg tablet Take 10 [...] day. 0 03/17/2023 folic acid 1 mg tabletIndications:Art hritis Psoriatic (HCC) Take 2 tablets (2,000 mcg total) by mouth daily. 180 tablet 3 09/26/2022 furosemide (LASIX) 20 mg tablet TAKE 1 TABLET BY MOUTH EVERY DAY 90 tablet 3 06/27/2022 loperamide (IMODIUM A-D) 2 mg tablet Take 1 mg by mouth 2 (two) times a day as needed. 0 methotrexate 25 mg/mL injectionIndications: Arthritis Psoriatic (HCC) Inject 0.7 mL (17.5 mg total) under the skin once a week. 10 mL 1 03/27/2023 mirtazapine (REMERON) 7.5 mg tablet Take 7.5 mg by mouth at bedtime. 0 01/16/2023 needle, disp, 27 gauge 27 gauge x 1/2 needleIndications:Art hritis Psoriatic (HCC) For methotrexate injections. 12 each 2 09/26/2022 omeprazole (PriLOSEC) [address] capsule Take 20 mg by mouth as needed. 0 11/25/2011 RX 1/2 Gallon Sharps Container Sharps 1/2 Gallon Sharps Container 1 each 04/10/2023 RX SIMPONI PATIENT KIT-OP ONLY SIMPONI PATIENT KIT 1 each 0 04/10/2023 RX WELCOME [id number] ONLY Welcome packet 1 each 0 04/10/2023 sennosides-docusate sodium (Senna with Docusate Sodium) 8.6-50 mg per tablet Take 1 tablet by mouth at bedtime as needed. For constipation 0 10/04/2020 sildenafiL (VIAGRA) 50 mg tablet Take 1 tablet (50 mg total) by mouth daily as needed for erectile dysfunction. 20 tablet 2 05/22/2022 SQ 1 Ml Injection KitIndications:Arthri tis Psoriatic (HCC) For methotrexate injections 1 kit 3 09/26/2022 venlafaxine XR (EFFEXOR-XR) 150 mg 24 hr capsule 0 08/05/2021 venlafaxine XR (EFFEXOR-XR) 75 mg 24 hr capsule Take 225 mg by mouth daily. 0 09/22/2019 warfarin (Coumadin) 5 mg tablet Take 1.5-2 tablets (7.5-10 mg total) by mouth daily. 10 mg on , , Sat. 7.5 mg all other days 0 10/19/2020 documented as of this encounter Plan of Treatment Upcoming Encounters Date Type Department Care Team (Latest Contact Info) Description 05/28/2023 9:30 AM DREDGE DECKHAND Clinical Communication Virtual Review in [address] [address] 05/30/2023 11:00 AM DREDGE DECKHAND Appointment Department of Laboratory Medicine and Pathology, [facility], in [place], [place] [address] [place] [phone] Sole Read APRN, C.N.P., D.N.P. [address] [place] [phone] 05/30/2023 1:00 PM DREDGE DECKHAND Office Visit Division of Hematology in [place], [place] [address] [place] [phone] Sole Read APRN, C.N.P., D.N.P. [address] [place] [phone] 06/17/2023 10:30 AM DREDGE DECKHAND Clinical Communication Virtual Review in [place], [place] 200 [place] [address] 06/18/2023 2:00 PM DREDGE DECKHAND Office Visit Division of Endocrinology in [place], [place] [address] [place] [phone] Get Ragland APRN, Lanny.N.P., D.N.P. [address] [place] [phone] 06/25/2023 10:30 AM CDT Appointment Department of Laboratory Medicine in [address] [phone] Bárbara Soto APRN, C.N.P. [address] [place] [phone] documented as of this encounter Procedures Procedure Name Priority Date/Time Associated Diagnosis Comments CT HEAD WITHOUT IV CONTRAST RAD - Routine (most inpatients and all outpatients) 04/24/2023 1:28 PM DREDGE DECKHAND Traumatic Subdural Hemorrhage With Loss Of Consciousness Status Unknown Initial Encounter (HCC) Craniotomy Status Post documented in this encounter Results * CT Head without IV Contrast (04/24/2023 1:28 PM DREDGE DECKHAND) Anatomical Region Laterality Modality Head, Neuroradiology RST LOS , Neuroradiology ARZ LOS, Neuroradiology FLA LOS N/A Computed Tomography, Compute d Tomography 04/24/2023 1:29 PM DREDGE DECKHAND Impressions 04/24/2023 1:41 PM DREDGE DECKHAND Left frontal craniotomy with no evidence of residual or recurrent subdural hematoma. Narrative 04/24/2023 1:41 PM DREDGE DECKHAND EXAM: CT HEAD WITHOUT IV CONTRAST COMPARISON: None. FINDINGS: Postsurgical changes left frontal craniotomy reportedly for evacuation of a subdural hematoma. No residual or recurrent left-sided subdural fluid collection. No acute intracranial hemorrhage. No evidence of acute or chronic large vessel infarction. Mild generalized parenchymal volume loss with ex vacuo enlargement of the ventricular system which is midline in position. The paranasal sinuses are significant for mild polypoid mucosal thickening in inferior maxillary sinuses bilaterally. Procedure Note Nikole Gilbert M.D. - 04/24/2023 EXAM: CT HEAD WITHOUT IV CONTRAST COMPARISON: None. FINDINGS: Postsurgical changes left frontal craniotomy reportedly forevacuation of a subdural hematoma. No residual or recurrent left-sidedsubdural fluid collection. No acute intracranial hemorrhage. No evidenceof acute or chronic large vessel infarction. Mild generalized parenchymal volume loss with ex vacuoenlargement of the ventricular system which is midline in position. The paranasal sinuses are significant for mild polypoid mucosal thickeningin inferior maxillary sinuses bilaterally. IMPRESSION: Left frontal craniotomy with no evidence of residual or recurrent subduralhematoma. Nazanin MENDOSA CT PROCEDURES documented in this encounter Visit Diagnoses Diagnosis Traumatic Subdural Hemorrhage With Loss Of Consciousness Status Unknown Initial Encounter (HCC) Craniotomy Status Post documented in this encounter Additional Health Concerns Infection Onset Date Last Indicated Resolved Time Protective Environment 07/19/2022 07/19/2022 Assessment Noted Time PHQ-9 Depression Total Score: 0 01/01/20 16 12:53 PM CDT documented as of this encounter Care Teams Rod Placer Relationship Specialty Start Date End Date Elsewhere, Pcp PCP - General Family Medicine 11/27/20 documented as of this encounter
--- OUTSIDE RECORDS SUMMARY | 2023-05-01 16:06 | XMS_ITS ---
Author Name Unknown Organization [facility] Address [address] [place] [address] Care Team Providers Care Coordinate Measuring Equipment Operator Name Role Phone Elsewhere, Pcp Primary Care Provider Unavailabl e Active Problems Problem Noted Date Diagnosed Date Obesity Body Mass Index 30-39.9 Adult 03/19/2023 Dysfunction Erectile 05/22/2022 Arthritis Ankle 10/09/2021 Pain Joint 11/07/2020 Drug Induced Constipation 11/07/2020 Seroma Subsequent 06/22/2020 Hodgkin Lymphoma Unspecified Lymph Nodes Of Axilla And Upper Limb 05/10/2020 Cancer Staging:Clinical stage from 01/28/2021:Stage II(Hodgkin lymphoma, A - Asymptomatic) - Unsigned Foot Joint Disorder Right 11/23/2019 Primary Osteoarthritis Foot Right 10/18/2019 Overview: Added automatically from request for surgery [id number] Aneurysm Thoracic Aorta Personal History 018 Pain Wrist Left 10/08/2017 Overview: Added automatically from request for surgery [id number] Dilated Aortic Root 03/04/2016 Hypertension Essential Primary 03/04/2016 Prosthesis Aortic Valve 04/28/2015 Arthritis Psoriatic 05/03/2014 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 Other Current Plans golimumab (SIMPONI ARIA)* Plan Start Date:12/05/2022 Plan Provider:Bárbara oSto APRN CRebeccaNRebeccaPRebecca Linked Problems Arthritis Psoriatic (HCC) Treatment Medications No medications scheduled. VASCULAR ACCESS PATENCY - PERIPHERAL INTRAVENOUS CATHETER AND RAPID INFUSION CATHETER* Plan Start Date:06/07/2020 Linked Problems Arthritis Psoriatic (HCC) Treatment Medications No medications scheduled. Past Plans Hematology / Oncology Treatment 1 Plan Name Start Date Discontinue Date Treatment Medications Discontinue Reason Plan Provider Cycles ABVD ( DOXOrubicin / Bleomycin / vinBLAStine / Dacarbazine ) 1 03/26/2022 bleomycin (BLEOCIN)dacarba zine (DTIC) IVPB in 1000 mLDOXOrubicin (ADRIAMYCIN)vinB LAStine (VELBAN) IVPB (VELBAN) Therapy Complete Marvin Benz M.D. 4 of 4 cycles started Radiation Treatments * Plan Last Treated On Elapsed Days Fractions Treated Prescribed Fraction Dose Prescribed Total Dose F1_Rt Axilla 02/21/2021 20 15 of 15 200 cGy 3,000 cGy Reference Point Last Treated On Elapsed Days Session Dose Total Dose [id number] 02/21/2021 20 200 cGy 3,000 cGy Lifetime Dose Tracking * Chemical Lifetime Dose Automatic Entry Manual Entr y doxorubicin 209.043 mg/m2 (480 mg) 209.043 mg/m2 (480 mg) 0 mg/m2 (0 mg) bleomycin 90 Units 90 Units 0 Units Radiation 0.805 mGy 0.805 mGy 0 mGy Fluoro Time 0.983 minutes 0.983 minutes 0 minutes Pediatric total anthracycline 209.043 mg/m2 (480 mg) 209.043 mg/m2 (480 mg) 0 mg/m2 (0 mg) Adult total anthracycline 209.043 mg/m2 (480 mg) 209.043 mg/m2 (480 mg) 0 mg/m2 (0 mg) DAP (cGy-cm2) 13.523 cGy-cm2 13.523 cGy-cm2 0 cGy-cm2 Resolved Problems Problem Noted Date Diagnosed Date Resolved Date 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 Shorty AVR and ascending aortic graft on 07/14. On lifelong anticoagulation.
--- OUTSIDE RECORDS SUMMARY | 2023-05-01 16:06 | XMS_ITS | Clinical Summary ---
Author Name Unknown Organization [facility] Address [address] [place] [address] Care Team Providers Care Care Transport Nurse Name Role Phone Elsewhere, Pcp Primary Care Provider Unavailabl e Source Comments Patient records contain information from all sites at [facility]. For routine questions regarding patient records, call [phone] during business hours, M-F 8:00 AM - 5:00 PM Central Time. Record requests for emergency care only can be directed to [phone] at any time.[facility] Allergies No known active allergies Medications Medication Sig Dispensed Refills Start Date End Date Status cholecalciferol (VITAMIN D3) 1,000 Unit capsule Take 2,000 Units by mouth daily. 0 05/02/2014 Active amLODIPine (NORVASC) 10 mg tablet Take 10 mg by mouth daily. 0 03/11/2015 Active venlafaxine XR (EFFEXOR-XR) 75 mg 24 hr capsule Take 225 mg by mouth daily. 0 09/22/2019 Active acetaminophen (TYLENOL) 500 mg tablet Take 1,000 mg by mouth every 6 (six) hours as needed for pain. 0 Active sennosides-docu sate sodium (Senna with Docusate Sodium) 8.6-50 mg per tablet Take 1 tablet by mouth at bedtime as needed. For constipation 0 10/04/2020 Active loperamide (IMODIUM A-D) 2 mg tablet Take 1 mg by mouth 2 (two) times a day as needed. 0 Active warfarin (Coumadin) 5 mg tablet Take 1.5-2 tablets (7.5-10 mg total) by mouth daily. 10 mg on , , Fri. 7.5 mg all other days 0 10/19/2020 Active Additional Information Patient taking differently:7.5-10 mg oral Daily,7.5 mg On Friday. 10 mg the other days., Reported on 06/05/2021 omeprazole (PriLOSEC) [address] capsule Take 20 mg by mouth as needed. 0 11/25/2011 Active venlafaxine XR (EFFEXOR-XR) 150 mg 24 hr capsule 0 08/05/2021 Active sildenafiL (VIAGRA) 50 mg tablet Take 1 tablet (50 mg total) by mouth daily as needed for erectile dysfunction. 20 tablet 2 05/22/2022 Active furosemide (LASIX) 20 mg tablet TAKE 1 TABLET BY MOUTH EVERY DAY 90 tablet 3 06/27/2022 Active needle, disp, 27 gauge 27 gauge x 1/2 needleIndicatio ns:Arthritis Psoriatic (HCC) For methotrexate injections. 12 each 2 09/26/2022 Active SQ 1 Ml Injection KitIndications: Arthritis Psoriatic (HCC) For methotrexate injections 1 kit 3 09/26/2022 Active folic acid 1 mg tabletIndicatio ns:Arthritis Psoriatic (HCC) Take 2 tablets (2,000 mcg total) by mouth daily. 180 tablet 3 09/26/2022 Active atorvastatin (LIPITOR) 40 mg tablet TAKE 1 TABLET BY MOUTH EVERY DAY 90 tablet 3 02/06/2023 Active warfarin (JANTOVEN) 1 mg tablet Take 3 mg by mouth. 0 03/14/2023 Active mirtazapine (REMERON) 7.5 mg tablet Take 7.5 mg by mouth at bedtime. 0 01/16/2023 Active labetaloL (NORMODYNE) 100 mg tablet Take 100 mg by mouth 2 (two) times a day. 0 03/14/2023 Active levETIRAcetam (KEPPRA) 1,000 mg tablet Take 1,000 mg by mouth 2 (two) times a day. 0 03/14/2023 Active enoxaparin (LOVENOX) 100 mg/mL injection 2 (two) times a day. 0 03/17/2023 Active desvenlafaxine (PRISTIQ) 50 mg 24 hr tablet Take 1 tablet by mouth daily. 0 03/04/2023 Active methotrexate 25 mg/mL injectionIndica tions:Arthritis Psoriatic (HCC) Inject 0.7 mL (17.5 mg total) under the skin once a week. 10 mL 1 03/27/2023 Active RX WELCOME PACKET-SPECIALT Y-OP ONLY Welcome packet 1 each 0 04/10/2023 Active RX SIMPONI PATIENT KIT-OP ONLY SIMPONI PATIENT KIT 1 each 0 04/10/2023 Active alcohol swabs (Alcohol Prep) pads, medicated As directed 100 each 04/10/2023 Active RX 1/2 Gallon Sharps Container Sharps 1/2 Gallon Sharps Container 1 each 04/10/2023 Active golimumab (Simponi) 50 mg/0.5 mL injectionIndica tions:Arthritis Psoriatic (HCC) Inject 50 mg (one syringe) under the skin every 30 (thirty) days. 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 Shorty AVR and ascending aortic graft on 07/14. On lifelong anticoagulation. Encounters Date Type Department Care Team Description 04/24/2023 1:06 PM MANAGER MATH - 04/24/2023 11:59 PM MANAGER MATH Hospital Encounter Department of Radiology, [facility], in [address] [phone] Nazanin Aguirre, P.A. 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 Arthritis Psoriatic (HCC) (Primary Dx); High Risk Medication 04/08/2023 Specialty Pharmacy [facility] [id number] [place] [address] Vicki Whittaker Pharm.D., R.Ph. 04/01/2023 11:15 AM MANAGER MATH Infusion Department of Infusion Therapy in [address] [phone] Bárbara Soto APRN, C.N.P. Arthritis Psoriatic (HCC) (Primary Dx) 03/31/2023 12:45 PM MANAGER MATH Clinical Communication Virtual Review in [place], [place] [address] [place] [address] Pre-visit Intake 03/27/2023 Clinical Communication Division of Rheumatology in [address] [phone] Bárbara Soto APRN, C.N.P. Lab Monitoring (MTX, 03/26) 03/26/2023 9:26 AM MANAGER MATH - 03/26/2023 11:59 PM MANAGER MATH Hospital Encounter Department of Laboratory Medicine in [address] [phone] Bárbara Soto APRN, C.N.P. Medication Therapy Cyber Security Administrator Not Anticoagulant; Arthritis Psoriatic (HCC) Discharge Disposition: Home or Self Care 03/25/2023 Refill Division of Rheumatology in [address] [phone] Bárbara Soto APRN, C.N.P. Med Refill 03/19/2023 8:00 AM MANAGER MATH Virtual Visit Division of Endocrinology in [place], [place] [address] [place] [phone] Get Ragland APRN, C.N.P., D.N.P. Obesity Body Mass Index 30-39.9 Adult (Primary Dx); Sleep Apnea; Hypertension Essential Primary 03/18/2023 7:30 AM MANAGER MATH Clinical Communication Virtual Review in [address] [address] Pre-visit Intake 02/21/2023 Clinical Communication Division of Rheumatology in [address] [phone] Filomena Hickey, Pharm.D., R.Ph. Simponi Aria Conversion 02/06/2023 Refill Department of Cardiovascular Diseases in [address] [phone] Ok Padilla M.D. Med Refill 02/04/2023 2:00 PM CDT Infusion Department of Infusion Therapy in [address] [phone] Bárbara Soto APRN, C.N.P. Arthritis Psoriatic (HCC) (Primary Dx) from Last 3 Months Immunizations Name Administration Dates Next Due PCV13 04/22/2013 RZV (SHINGRIX) 04/09/2018 SARS-COV-2 (COVID-19) - PFIZER (12 years or olde r) 12/20/2020 Td (Adult), adsorbed 07/12/2003,11/06/1992 Tdap 04/17/2012 Family History Medical History Relation Name Comments Arthritis Father Bang Jose Juan Charlette Coronary artery disease Father Bang Manzano Sarah i Diabetes Father Bang Ovalles Hyperlipidemia Father Bang Ovalles Hypertension Father Bang Ovalles Sleep apnea Father Bang Ovalles Anxiety disorder Mother Yasmin Ovalles Arthritis Mother Yasmin Ovalles Coronary artery disease Mother Yasmin Ovalles Depression Mother Yasmin Ovalles Sleep apnea Mother Yasmin Ovalles Relation Name Status Comments Father Bang Ovalles Mother Yasmin Ovalles Social History Tobacco Use Types Packs/Day Years Used Date Smoking Tobacco: Never Smokeless Tobacco: Never Tobacco Cessation:Counseling Given: Not Answered Alcohol Use Standard Drinks/Week Comments Yes 2 [...] often do you attend chur ch or buddhism services? Never 07/16/2022 Do you belong to [...] and heating? Not hard at all 09/19/2022 [facility] - Occupational Stress [...] your living situation today? I have a [facility] place to live 09/19/2022 Education Answer Date Recorded What is the highest level of school you have completed or the highest degree you have received? 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 SPECIALIST, DEBRA) 09/16/2018 Sex and Gender Information Value Date Recorded Sex Assigned at Male 10/08/2017 8:25 AM CDT Gender Identity Male 10/08/2017 8:25 AM CDT Sexual Orientation Straight 10/08/2017 8: 25 AM CDT Last Filed Vital Signs Vital Sign Reading Time Taken Comments Blood Pressure 134/83 04/17/2023 2:39 PM MANAGER MATH Pulse 77 04/17/2023 2:39 PM MANAGER MATH Temperature 37.6 ??C (99.7 ??F) 04/17/2023 2:39 PM CS T Respiratory Rate 18 04/01/2023 12:00 PM MANAGER MATH Oxygen Saturation 98% 04/01/2023 12:00 PM MANAGER MATH Inhaled Oxygen Concentration - - Weight 110 kg (243 lb 4.4 oz) 04/17/2023 2:39 PM MANAGER MATH Height 178.7 cm (5' 10.35) 04/17/2023 2:[address] Body Mass Index 34.56 04/17/2023 2:39 PM MANAGER MATH Plan of Treatment Upcoming Encounters Date Type Department Care Team (Latest Contact Info) Description 05/28/2023 9:30 AM MANAGER MATH Clinical Communication Virtual Review in [place], [place] [address] [place] [address] 05/30/2023 11:00 AM MANAGER MATH Appointment Department of Laboratory Medicine and Pathology, [facility], in [place], [place] [address] [place] [phone] Sole Read APRN, C.N.P., D.N.P. [address] [place] [phone] 05/30/2023 1:00 PM MANAGER MATH Office Visit Division of Hematology in [address] [phone] Sole Read APRN, C.N.P., D.N.P. [address] [place] [phone] 06/17/2023 10:30 AM MANAGER MATH Clinical Communication Virtual Review in [place], [place] [address] [place] [address] 06/18/2023 2:00 PM MANAGER MATH Office Visit Division of Endocrinology in [place], [place] [address] [place] [phone] Get Ragland APRN, C.N.P., D.N.P. [address] [place] [phone] 06/25/2023 10:30 AM CDT Appointment Department of Laboratory Medicine in [address] [phone] Bárbara Soto APRN, C.N.P. [address] [place] [phone] Health Maintenance Due Date Last Done Comments CT Colonography 1957 Cologuard 1957 FIT 1957 Hepatitis C Screening 1955 Sodium Level 01/24/2017 01/25/2016 Colonoscopy 04/14/2021 04/14/2011 (Perf ormed elsewhere) Colorectal Cancer Screening 04/14/2021 Depression Screening (Annual PHQ-2) 04/14/2023 Fall Risk Screen (Annual) 04/14/2023 Potassium Level 11/27/2023 11/26/2022, 04/0 10/2022, 03/21/2022, Additional history exists Creatinine Level (Kidney Function Test) 03/26/2024 03/26/2023, 12/18/2022, 11/26/2022, Additional history exists Office Visit for Blood Pressure Check / Re-check 04/17/2024 04/17/2023 Fasting Glucose for Diabetes Screening 07/19/2025 07/19/2022, 01/08/2021, 12/25/2020, Additional history exists Lipid (Cholesterol) Screening 07/20/2027 07/19/2022, 01/25/2016, 04/14/2014 (Performed elsewhere) DTaP,Tdap,and Td Vaccines (3 - Td or Tdap) 12/23/2032 12/23/2022, 04/17/2012, 07/12/2003, Additional history exists Zoster Vaccines Completed 06/16/2018, 04/09/2018 Pneumococcal vaccine (65+ years) Completed 12/03/2022, 04/22/2013 COVID-19 Vaccine Completed 02/20/2023, , 08/07/2021, Additional history exists Influenza Vaccine Completed 02/20/2023, , 01/17/2021, Additional history exists HPV Vaccines Aged Out No longer eligi ble based on patient's age to complete this topic Medical Devices Implanted Type Area Electrical Installation Supervisor Device Identifier Shelf Expiration Date Model / Serial / Lot Bonewax Implanted:Qty: 1 on 11/24/2019 by Curly Esparza M.D. at [facility] Bone or Tissue Right: Ankle Ethicon 09/12/2023 W31 / N/A / [id number] Conversions-Defa ult Historical Implant Device- 5 Implanted:2014 (Quantity not on file) Cardiac Stent Coronary Description:Device Status Te xt - Cardiac. 2 stents Conversions - Default Historical Implant Device-07/22/2002 Implanted:2002 (Quantity not on file) Cardiac Valve Prosthesis Aorta Description:St.Shorty (for bic uspid valve ) MR conditional 3T Device Status Text - CardValve. Scrw St Pthrd Nlck Lang 6.7x85 - [id number] Implanted:Qty: 2 on 11/24/2019 at [facility] Hardware e.g. pins/screws/r ods Right: Ankle Arthrex [id number] / / Clp Hrzn Ti 6 Clp Nirav - [id number] Implanted:Qty: 2 on 05/23/2020 by Eva Alicea M.D. at [facility] Hardware e.g. pins/screws/r ods [employer] [id number] / / Description:Biopsy marker Ocular Lens Ocular Lens Bilateral: Eye Vascular Graft 2015 Vascular Graft Aorta Description:Dunbar Tag Endopro thesis graft places in descending aorta in 2015 at [facility]. 3T Conditional at Normal Normal per [employer]. Vascular Graft--07/22/2002 Implanted:2002 (Quantity not on file) Vascular Graft Aorta Description:Device Status Te xt - CardValve. 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 Status Unknown Initial Encounter (HCC) Craniotomy Status Post C-REACTIVE PROTEIN (CRP), S/P Routine 03/26/2023 9:31 AM MANAGER MATH Arthritis Psoriatic (HCC) SEDIMENTATION RATE, B Routine 03/26/2023 9:31 AM MANAGER MATH Arthritis Psoriatic (HCC) CREATININE WITH EGFR, S/P Routine 03/26/2023 9:31 AM MANAGER MATH Medication Therapy Cyber Security Administrator Not Anticoagulant ASPARTATE AMINOTRANSFERASE (AST), S/P Routine 03/26/2023 9:31 AM MANAGER MATH Medication Therapy Senior Living Not Anticoagulant CBC WITH DIFFERENTIAL, B Routine 03/26/2023 9:31 AM MANAGER MATH Medication Therapy Senior Living Not Anticoagulant from Last 3 Months Results * CT Head without IV Contrast (04/24/2023 1:28 PM MANAGER MATH) Anatomical Region Laterality Modality Head, Neuroradiology [facility] , Neuroradiology [facility], [facility] N/A Computed Tomography, Compute d Tomography 04/24/2023 1:29 PM MANAGER MATH Impressions 04/24/2023 1:41 PM MANAGER MATH Left frontal craniotomy with no evidence of residual or recurrent subdural hematoma. Narrative 04/24/2023 1:41 PM MANAGER MATH EXAM: CT HEAD WITHOUT IV CONTRAST COMPARISON: [...] evidence of residual or recurrent subduralhematoma. Nazanin Aragon IMG CT PROCEDURES * Sedimentation Rate (03/26/2023 9:31 AM MANAGER MATH) Pathologist [facility] Sedimentation Rate, B 11 0 - 22 mm/1 h 03/26/2023 1:09 PM MANAGER MATH RDWG Blood (Blood, Venous) 03/26/2023 9:31 AM MANAGER MATH 03/26/2023 12:23 PM MANAGER MATH Bárbara Soto APRN C.N.P. LAB BLOOD ADD-ON [facility] [address] [place] [address], [facility] RDWG [facility] in [place] [address] [place] [phone] * CBC with Differential, Blood (03/26/2023 9:31 AM MANAGER MATH) Pathologist [facility] Hemoglobin 14.0 13.2 - 16.6 g/dL 03/26/2023 9:43 AM MANAGER MATH CNFL Hematocrit 41.6 38.3 - 48.6 % 03/26/2023 9:43 AM MANAGER MATH CNFL Erythrocytes 4.40 4.35 - 5.65 x10(12)/L 03/26/2023 9:43 AM MANAGER MATH CNFL MCV 94.5 78.2 - 97.9 fL 03/26/2023 9:43 AM MANAGER MATH CNFL RBC Distrib Width 12.2 11.8 - 14.5 % 03/26/2023 9:43 AM MANAGER MATH CNFL Platelet Count 145 135 - 317 x10(9)/L 03/26/2023 9:43 AM MANAGER MATH CNFL Leukocytes 5.0 3.4 - 9.6 x10(9)/L 03/26/2023 9:43 AM MANAGER MATH CNFL Neutrophils 2.29 1.56 - 6.45 x10(9)/L 03/26/2023 9:43 AM MANAGER MATH CNFL Lymphocytes 1.77 0.95 - 3.07 x10(9)/L 03/26/2023 9:43 AM MANAGER MATH CNFL Monocytes 0.38 0.26 - 0.81 x10(9)/L 03/26/2023 9:43 AM MANAGER MATH CNFL Eosinophils 0.48 0.03 - 0.48 x10(9)/L 03/26/2023 9:43 AM MANAGER MATH CNFL Basophils 0.04 0.01 - 0.08 x10(9)/L 03/26/2023 9:43 AM MANAGER MATH CNFL Blood (Blood, Venous) 03/26/2023 9:31 AM MANAGER MATH 03/26/2023 9:32 AM MANAGER MATH Bárbara Soto APRN, C.N.P. LAB BLOOD ADD-ON [facility] [address] [place] [phone], [facility] CNFL [facility] in [address] [address] * CRP (C-Reactive Protein) (03/26/2023 9:31 AM MANAGER MATH) Pathologist [facility] C-Reactive Protein (CRP), P <3.0 <5.0 mg/L 03/26/2023 9:50 AM MANAGER MATH CNFL Blood (Blood, Venous) 03/26/2023 9:31 AM MANAGER MATH 03/26/2023 9:32 AM MANAGER MATH Bindu Sawant APRNN.P. [place] [address], [place] [address] * AST (Aspartate Aminotransferase) (03/26/2023 9:31 AM MANAGER MATH) Aspartate Aminotransferase (AST), P 24 8 - 48 U/L 03/26/2023 9:50 AM MANAGER MATH [facility] Blood (Blood, Venous) 03/26/2023 9:31 AM MANAGER MATH 03/26/2023 9:32 AM MANAGER MATH Bindu Sawant APRNN.P. LAB BLOOD ADD-ON Performing Organization Address City/[facility]/[place] [address], [facility] [place] [address] * Creatinine with Estimated GFR (03/26/2023 9:31 AM MANAGER MATH) Creatinine 1.16 0.74 - 1.35 mg/dL 03/26/2023 9:50 AM MANAGER MATH [place] Estimated GFR (eGFR) 69 >=60 mL/min/BSA 03/26/2023 9:50 AM MANAGER MATH [place] Comment: Estimated GFR calculated using the 2020 CKD_EPI creatinine equation. Blood (Blood, Venous) 03/26/2023 9:31 AM MANAGER MATH 03/26/2023 9:32 AM MANAGER MATH Lanny Sawant APRN.N.P. [place] [address], [facility] in [place] [address] [place] [address] from Last 3 Months Additional Health Concerns Infection Onset Date Last Indicated Protective Environment 07/19/2022 3 Advance Directives For more information, please contact: [phone] Documents on File Type Date Recorded Patient Community Administrator Expl anation Advance Directives 01/18/2021 11:23 AM Daly Ovalles HCPOA/ADVOCATE/AGENT/R EPRESENTATIVE/SURROGAT E Latest Code Status on File Code Status Date Activated Date Inactivated Comments Full Code 09/25/2020 6:56 AM 09/25/2020 3:33 PM Question Answer Comments Full Code: Not Discussed Due to: Not medically appropriate Code Status History Code Status Date Activated Date Inactivated Comments Full Code 05/23/2020 8:52 AM 05/23/2020 7:56 PM Question Answer Comments Full Code: Not Discussed Due to: Not medically appropriate Healthcare Agents on File Name Relationship Healthcare Agent Relationshi p Communication Daly Ovalles Spouse Health Care Agent Radha Patel Daughter First Alternate Health Care Agent Gil Ovalles Son Second Alternate Health Care Agent Care Teams Care Transport Nurse Relationship Specialty Start Date End Date Elsewhere, Pcp PCP - General Family Medicine 11/27/20
--- OUTSIDE RECORDS SUMMARY | 2023-05-01 16:06 | XMS_ITS | Encounter Summary ---
Author Name Unknown Organization [facility] Address [address] [place] [address] Care Team Providers Care Wildland Fire Fighter Name Role Phone Elsewhere, Pcp Primary Care Provider Unavailabl e Reason for Visit * Reason Comments Outpatient Infusion simopni * Episode Based Medications (Routine) - Authorized Specialty Diagnoses / Procedures Referred By Contac t Referred To Contact Diagnoses Arthritis Psoriatic (HCC) Bárbara Soto APRN, C.N.P. [address] [place] [phone] Rst Rhu Winter [address] [place] [phone] Referral ID Status Reason Start Date Expiration Date V isits Requested Visits Authorized [id number] Authorized 11/14/2022 11/13/2024 99 99 Encounter Details Date Type Department Care Team (Late st Contact Info) Description 04/01/2023 11:15 AM SNACK STEWARDESS Infusion Department of Infusion Therapy in [address] [phone] Bárbara Soto APRN, C.N.P. [address] [place] [phone] Arthritis Psoriatic (HCC) (Primary Dx) Social History Tobacco Use Types Packs/Day Years [...] 07/16/2022 How often do you attend chur or druze services? Never 07/16/2022 Do you belong to any clubs o r organizations such as jew groups, unions, fraternal or athletic groups, or [...] and heating? Not hard at all 09/19/2022 [facility] of Occupat ional [facility] - Occupational Stress Questionnaire Answer Date Recorded [...] your living situation today? I have a [facility] place to live 09/19/2022 Education Answer Date Recorded What is the highest level of school you have completed or the highest degree you have received? Master's degree (e.g., MA, MS, Starla, MEd, MECHANICAL SUPERVISOR, DEBRA) 09/16/2018 Sex and Gender Information Value Date Recorded Sex Assigned at Male 10/08/2017 8:25 AM CDT Gender Identity Male 10/08/2017 8:25 AM CDT Sexual Orientation Straight 10/08/2017 8: 25 AM CDT documented as of this encounter Last Filed Vital Signs Vital Sign Reading Time Taken Comments Blood Pressure 123/70 04/01/2023 12:00 PM SNACK STEWARDESS Pulse 78 04/01/2023 12:00 PM SNACK STEWARDESS Temperature 35.9 ??C (96.6 ??F) 04/01/2023 11:[address] Respiratory Rate 18 04/01/2023 12:00 PM SNACK STEWARDESS Oxygen Saturation 98% 04/01/2023 12:00 PM SNACK STEWARDESS Inhaled Oxygen Concentration - - Weight 107 kg (236 lb) 04/01/2023 11:03 AM SNACK STEWARDESS Height - - Body Mass Index 34.56 03/19/2023 8:09 AM SNACK STEWARDESS documented in this encounter Plan of Treatment Upcoming Encounters Date Type Department Care Team (Latest Contact Info) Description 05/28/2023 9:30 AM SNACK STEWARDESS Clinical Communication Virtual Review in [address] [address] 05/30/2023 11:00 AM SNACK STEWARDESS Appointment Department of Laboratory Medicine and Pathology, [facility] in [place], [place] [address] [place] [phone] Sole Read APRN, C.N.P., D.N.P. [address] [place] [phone] 05/30/2023 1:00 PM SNACK STEWARDESS Office Visit Division of Hematology in [place], [place] [address] [place] [phone] Sole Read APRN, C.N.P., D.N.P. [address] [place] [phone] 06/17/2023 10:30 AM SNACK STEWARDESS Clinical Communication Virtual Review in [address] [address] 06/18/2023 2:00 PM SNACK STEWARDESS Office Visit Division of Endocrinology in [place], [place] [address] [place] [phone] Get Ragland APRN, C.N.P., D.N.P. [address] [place] [phone] 06/25/2023 10:30 AM CDT Appointment Department of Laboratory Medicine in [address] [phone] Bárbara Soto APRN, C.NRebeccaP. [address] [place] [phone] documented as of this encounter Visit Diagnoses Diagnosis Arthritis Psoriatic (HCC)- Primary documented in this encounter Administered Medications Inactive Administered Medications - up to 3 most recent administrations Medication Order MAR Action Action Date Dose Rate Site golimumab 212.5 mg in NaCl 0.9% IVPB (SIMPONI ARIA) 212.5 mg (rounded from 210 mg = 2 mg/kg ? 105 kg), intravenous, at 200 mL/hr, Administer over 30 Minutes, Once, On Fri04/01/23 at 1130, For 1 dose, Do NOT shake. Use in-line filter. Do NOT refrigerate. New Bag 04/01/2023 11:25 AM SNACK STEWARDESS 212.5 mg 200 mL/hr documented in this encounter Additional Health Concerns Infection Onset Date Last Indicated Resolved Time Protective Environment 07/19/2022 07/19/2022 Assessment Noted Time PHQ-9 Depression Total Score: 0 01/01/20 16 12:53 PM CDT documented as of this encounter Care Teams Wildland Fire Fighter Relationship Specialty Start Date End Date Elsewhere, Pcp PCP - General Family Medicine 11/27/20 documented as of this encounter
--- OUTSIDE RECORDS SUMMARY | 2023-05-01 16:06 | XMS_ITS | Encounter Summary ---
Author Name Unknown Organization [facility] Address [address] [place] [id number] Care Team Providers Care Cement Finisher Helper Name Role Phone Elsewhere, Pcp Primary Care Provider Unavailabl e Reason for Visit * Reason Onset Date Comments Pre-visit Intake 03/31/2023 Encounter Details Date Type Department Care Team (Latest Contact Info) Description 03/31/2023 12:45 PM WAREHOUSEMAN Clinical Communication Virtual Review in [place], [place] 200 [place], [place] [phone] Pre-visit Intake Social History Tobacco Use Types Packs/Day Years [...] often do you attend chur ch or church services? Never 07/16/2022 Do you belong to any clubs o r organizations such as hoahaoism groups, unions, fraternal or athletic groups, or [...] and heating? Not hard at all 09/19/2022 [facility] of Occupat ional Health - Occupational Stress [...] your living situation today? I have a [facility] place to live 09/19/2022 Education Answer Date Recorded What is the highest level of school you have completed or the highest degree you have received? Master's degree (e.g., MA, MS, Starla, MEd, CITY PLANNER, DEBRA) 09/16/2018 Sex and Gender Information Value Date Recorded Sex Assigned at Male 10/08/2017 8:25 AM CDT Gender Identity Male 10/08/2017 8:25 AM CDT Sexual Orientation Straight 10/08/2017 8: 25 AM CDT documented as of this encounter Plan of Treatment Upcoming Encounters Date Type Department Care Team (Latest Contact Info) Description 05/28/2023 9:30 AM WAREHOUSEMAN Clinical Communication Virtual Review in [place], [place] 200 [place] [address] 05/30/2023 11:00 AM WAREHOUSEMAN Appointment Department of Laboratory Medicine and Pathology, [facility], in [place], [place] [address] [place] [phone] Sole Read APRN, C.N.P., D.N.P. [address] [place] [phone] 05/30/2023 1:00 PM WAREHOUSEMAN Office Visit Division of Hematology in [place], [place] [address] [place] [phone] Sole Read APRN, C.N.P., D.N.P. [address] [place] [phone] 06/17/2023 10:30 AM WAREHOUSEMAN Clinical Communication Virtual Review in [place], [place] 200 [place] [address] 06/18/2023 2:00 PM WAREHOUSEMAN Office Visit Division of Endocrinology in [place], [place] [address] [place] [phone] Get Ragland APRN, C.N.P., D.N.P. [address] [place] [phone] 06/25/2023 10:30 AM CDT Appointment Department of Laboratory Medicine in [address] [phone] Bárbara Soto APRN, C.N.P. [address] [place] [phone] documented as of this encounter Visit Diagnoses Not on filedocumented in this encounter Additional Health Concerns Infection Onset Date Last Indicated Resolved Time Protective Environment 07/19/2022 07/19/2022 Assessment Noted Time PHQ-9 Depression Total Score: 0 01/01/20 16 12:53 PM CDT documented as of this encounter Care Teams Cement Finisher Helper Relationship Specialty Start Date End Date Elsewhere, Pcp PCP - General Family Medicine 11/27/20 documented as of this encounter
--- OUTSIDE RECORDS SUMMARY | 2023-05-01 16:06 | XMS_ITS | Encounter Summary ---
Author Name Unknown Organization [facility] Address [address] [place] [address] Care Team Providers Care Shot Bagger Name Role Phone Elsewhere, Pcp Primary Care Provider Unavailabl e Reason for Referral * Outpatient (Routine) - Authorized Specialty Diagnoses / Procedures Referred By Nuvia de leon Referred To Contact Rheumatology Bárbara Soto APRN, C.N.P. 200 [place] [phone] [facility] Referral ID Status Reason Start Date Expiration Date V isits Requested Visits Authorized [id number] Authorized 04/17/2023 04/16/2026 1 1 ED OPERATOR Reason for Visit * Outpatient (Routine) - Closed Specialty Diagnoses / Procedures Referred By Nuvia de leon Referred To Contact Rheumatology Bárbara Soto APRN, C.N.P. 200 [place] [phone] [facility] Referral ID Status Reason Start Date Expiration Date Visits Re quested Visits Authorized [id number] Closed 12/24/2022 12/23/2025 1 1 Encounter Details Date Type Department Care Team (Latest Contact Info) Description 04/17/2023 2:45 PM SCREED OPERATOR Office Visit Division of Rheumatology in [place], [place] [address] [place] [address] Bárbara Soto, JASON, C.N.P. 200 [place] [phone] Arthritis Psoriatic (HCC) (Primary Dx); High Risk Medication Social History Tobacco Use Types Packs/Day Years [...] How often do you attend chur or denominational services? Never 07/16/2022 Do you belong to any clubs o r organizations such as latter-day groups, unions, fraternal or athletic groups, or [...] and heating? Not hard at all 09/19/2022 [facility] - Occupational Stress Questionnaire Answer Date Recorded [...] your living situation today? I have a [facility] place to live 09/19/2022 Education Answer Date Recorded What is the highest level of school you have completed or the highest degree you have received? Master's degree (e.g., MA, MS, Starla, MEd, DIGITAL PRE PRESS OPERATOR, DEBRA) 09/16/2018 Sex and Gender Information Value Date Recorded Sex Assigned at Male 10/08/2017 8:25 AM CDT Gender Identity Male 10/08/2017 8:25 AM CDT Sexual Orientation Straight 10/08/2017 8: 25 AM CDT documented as of this encounter Last Filed Vital Signs Vital Sign Reading Time Taken Comments Blood Pressure 134/83 04/17/2023 2:39 PM SCREED OPERATOR Pulse 77 04/17/2023 2:39 PM SCREED OPERATOR Temperature 37.6 ??C (99.7 ??F) 04/17/2023 2:39 PM CS T Respiratory Rate - - Oxygen Saturation - - Inhaled Oxygen Concentration - - Weight 110 kg (243 lb 4.4 oz) 04/17/2023 2:39 PM SCREED OPERATOR Height 178.7 cm (5' 10.35) 04/17/2023 2:[address] Body Mass Index 34.56 04/17/2023 2:39 PM SCREED OPERATOR documented in this encounter Progress Notes * Bárbara Soto, JASON, C.N.P. - 04/17/2023 2:[address] Images from the original note were not included. SUBJECTIVE CHIEF COMPLAINT / REASON FOR VISIT Get Ovalles is a 68 y.o. male who presents as an established patient for follow up of psoriatic arthritis. HISTORY OF PRESENT ILLNESS Mr. Get Ovalles is a 68-year-old male with psoriatic arthritis since 2006. He was initially seen in consult by Dr. Solomon in April 2014. He had psoriasis on his lateral lower leg and around his ears for a number of years. He thinks he had joint symptoms for two or three years prior to that diagnosis of psoriatic arthritis. November 03, 2017 he had a right wrist partial denervation and then right wrist arthroscopy on March 23, 2018. Hodgkin's lymphoma started chemo on October 04, 2020 and completed in February 2021. RHEUMATIC DISEASE MEDICATION HISTORY Medication Start Date Stop Date Response / Adverse Events Celebrex Currently Methotrexate Lack of joint res pones Humira 01/2016 Increased joint pain and swelling Stelara 02/201611/12/2017 Methotrexate 01/2017 Transition to SQ 09/2022 Humira 11/2017 Lack of joint response Cosentyx 03/201804/28/2020 Medicare Simponi Aria 05/2020 HELD for Lymphoma treatment Simponi Aria 01/2021 Currently Today, I am seeing Mr. Ovalles for follow-up of his psoriatic arthritis. Unfortunately, he suffered bilateral subdural hematoma on March 05, 2023. He had a craniotomy on March 08, 2023 at [facility]. He then had a TIA with expressive aphasia. Fortunately he has made great recovery and has no lasting effects of the stroke. He is having pain when soreness in his hands and feet. He is found outthe cost of subcu Simponi and he is unable to afford this. His Celebrex was stopped while in the hospital. He will be seeing Hematology for follow-up of Hodgkin's lymphoma in May, which remains in remission. His last Simponi Aria infusion was April 01, 2023. He continues to take Simponi Aria 2 mg/kilogram IV infusion every 8 weeks, methotrexate 17.5 mg SQ once weekly, and folic acid 1 mg daily. Morning stiffness lasting all day as he has not very active He denies any adverse side effects to medications. Rheumatoid Arthritis Current Symptoms: dry eyes (using drops as needed- ok right now), fatigue (more since the subdural hematoma), rash (psoraisis: left leg) and dyspnea (activity) Current Symptoms: no dry mouth, no fever, no weight loss, no excessive bruising, no cough, no chestpain, no edema, no nausea, no vomiting, no abdominal pain, no anorexia, no chills, no night sweats,no oral ulcers, no eye inflammation, no heartburn (prevacid- rarely) and no subcutaneous nodules Previous Reports Reviewed:lab reports and office notes The following portions of the patient's history were reviewed and updated as appropriate: family history, medical history, social history, surgical history and problem list. REVIEW OF SYSTEMS Pertinent positives and negatives as documented in the above history of present illness. Constitutional: Positive for fatigue (more since the subdural hematoma) and weight gain of more than 10 pounds. - Negative for chills, fever, night sweats and weight loss. Skin: Positive for skin rash (psoraisis: left leg). ENT: Positive for difficulty hearing and persistent hoarse voice. Respiratory: - Negative for coughing and dry cough. Cardiovascular: - Negative for chest pain, pressure or tightness. Gastrointestinal: - Negative for abdominal (belly) pain or cramping, anorexia, heartburn (prevacid- rarely), nausea and vomiting. Musculoskeletal: Positive for pain or stiffness in the joints (hands, wrists) and muscle pain/stiffness. - Negative for joint swelling. Back pain: neck. The following systems were negative: Eyes, Cardiovascular, Genitourinary, Hematologic, Neurological, Psychiatric OBJECTIVE PHYSICAL EXAM Physical Exam General: Alert, oriented, appropriate affect, no apparent distress. Skin: No rheumatologic rashes or ulcers noted. No psoriasis at this time. Eyes: Clear conjunctivae and lids. Lymph: No cervical or supraclavicular adenopathy. Cardio: Regular rate. No murmurs. Lungs: Clear to auscultation bilaterally. Extremities: No limitations in ROM bilaterally. Joints: See joint exam. Bilateral 4th Dupuytren's contractures noted. 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 Lab: CBC with differential, creatinine, GFR, and AST all within normal limits. 10/11/2021 09/26/2022 12/24/2022 04/17/2023 Tender joint count (0-28) 2 10 6 3 Swollen joint count (0-28) 0 8 2 0 Patient global assessment (0-100) 51 36 56 63 Cashier Clerk global assessment (0-100) 40 50 40 45 ESR (mm/h) 1 -- 4 -- CRP (mg/L) 3 -- 3 -- Disease Activity Score 28 using ESR ([id number]) 1.51 -- 3.52 -- Disease Activity Score 28 using CRP ([id number]) 2.97 -- 4.01 -- Clinical Disease Activity Index (CDAI) 11.1 26.6 17.6 13.8 Simplified Disease Activity Index (SDAI) 11.4 -- 17.9 -- ASSESSMENT / PLAN #1 Arthritis Psoriatic (HCC) #2 History of bilateral subdural hematomas 03/05/2023 Overall, his joints are doing about the same since when I saw him last. He has made a wonderful recovery after having the bilateral subdural hematomas and a TIA in February. We will continue to follow with Neurosurgery. I hope that once he fully recovers we will TIA in his able to taper off the Keppra then we can think about restarting his Celebrex. Unfortunately, he is unable to afford subcu Simponi injections so we will continue Simponi Aria 2 mg/kilogram IV infusion, but will do this in [place]. He will continue methotrexate 17.5 mg subq once weekly and folic acid 2 mg daily. Prescriptions are up-to-date. Patient's were in agreement with this plan. #3 High-risk medication He will continue laboratory monitoring every 3 months for methotrexate. I will follow up with him in 3 months I answered the patients questions to the best of my ability. The patient seemed pleased with our interaction. If he should have any additional questions or concerns. I have asked that he contact us at that time. [place] ED OPERATOR documented in this encounter Plan of Treatment Upcoming Encounters Date Type Department Care Team (Latest Contact Info) Description 05/28/2023 9:30 AM SCREED OPERATOR Clinical Communication Virtual Review in [address] [address] 05/30/2023 11:00 AM SCREED OPERATOR Appointment Department of Laboratory Medicine and Pathology, [facility], in [address] [phone] Sole Read APRN, C.N.P., D.N.P. [address] [place] [phone] 05/30/2023 1:00 PM SCREED OPERATOR Office Visit Division of Hematology in [address] [phone] Sole Read APRN, C.N.P., D.N.P. [address] [place] [phone] 06/17/2023 10:30 AM SCREED OPERATOR Clinical Communication Virtual Review in [address] [address] 06/18/2023 2:00 PM SCREED OPERATOR Office Visit Division of Endocrinology in [place], [place] [address] [place] [address] Get Ragland APRN, C.N.P., D.N.P. 200 [place] [phone] 06/25/2023 10:30 AM CDT Appointment Department of Laboratory Medicine in [address] [phone] Bárbara Soto APRN, C.N.P. 200 [place] [phone] Scheduled Orders Name Type Priority Associated Diagnoses Orde r Schedule CBC with Differential, Blood Lab Routine Arthritis Psoriatic (HCC) Expected: 07/17/2023 (Approximate), Expires: 04/17/2024 Sedimentation Rate Lab Routine Arthritis Psoriatic (HCC) Expected: 07/17/2023 (Approximate), Expires: 04/17/2024 CRP (C-Reactive Protein) Lab Routine Arthritis Psoriatic (HCC) Expected: 07/17/2023 (Approximate), Expires: 04/17/2024 Creatinine with Estimated GFR Lab Routine Arthritis Psoriatic (HCC) Expected: 07/17/2023 (Approximate), Expires: 04/17/2024 AST (Aspartate Aminotransferase) Lab Routine Arthritis Psoriatic (HCC) Expected: 07/17/2023 (Approximate), Expires: 04/17/2024 Scheduled Referrals Name Type Priority Associated Diagnoses Order Schedule Rheumatology office visit (clinic) Outpatient Referral Routine Expected: 07/17/2023 (Approximate), Expires: 07/16/2024 documented as of this encounter Visit Diagnoses Diagnosis Arthritis Psoriatic (HCC)- Primary High Risk Medication documented in this encounter Additional Health Concerns Infection Onset Date Last Indicated Resolved Time Protective Environment 07/19/2022 07/19/2022 Assessment Noted Time PHQ-9 Depression Total Score: 0 01/01/20 16 12:53 PM CDT documented as of this encounter Care Teams Shot Bagger Relationship Specialty Start Date End Date Elsewhere, Pcp PCP - General Family Medicine 11/27/20 documented as of this encounter
--- OUTSIDE RECORDS SUMMARY | 2023-05-01 16:06 | XMS_ITS | Encounter Summary ---
Author Name Unknown Organization [facility] Address [address] [place] [address] Care Team Providers Care Mess Cook Name Role Phone Elsewhere, Pcp Primary Care Provider Unavailabl e Reason for Visit * Reason Onset Date Comments Lab Monitoring 03/27/2023 MTX, 03/26 Encounter Details Date Type Department Care Team (Latest Contact Info) Description 03/27/2023 Clinical Communication Division of Rheumatology in [place], [place] [address] [place] [phone] Bárbara Soto, JASON, C.N.P. [address] [place] [address] Lab Monitoring (MTX, 03/26) Social History Tobacco Use Types Packs/Day Years [...] How often do you attend chur or hindu services? Never 07/16/2022 Do you belong to any clubs o r organizations such as gnosticism groups, unions, fraternal or athletic groups, or [...] and heating? Not hard at all 09/19/2022 [facility] of Occupat ional Health - Occupational [...] your living situation today? I have a [facility] place to live 09/19/2022 Education Answer Date Recorded What is the highest level of school you have completed or the highest degree you have received? Master's degree (e.g., MA, MS, Starla, MEd, HEAD OF CYTOGENETICS, DEBRA) 09/16/2018 Sex and Gender Information Value Date Recorded Sex Assigned at Male 10/08/2017 8:25 AM CDT Gender Identity Male 10/08/2017 8:25 AM CDT Sexual Orientation Straight 10/08/2017 8: 25 AM CDT documented as of this encounter Miscellaneous Notes * Telephone Encounter - Stacy Madera, R.N. - 03/27/2023 11:39 AM PRODUCE RUNNER Documentation note only, patient not contacted ASSESSMENT Rheumatology monitoring labs completed on 03/26/2023 for methotrexate monitoring were reviewed per provider order. Labs reviewed: absolute neutrophil count, AST, creatinine, hemoglobin, leukocytes, platelets Labs viewable in Labs Tab of Chart Review. PLAN Patient to continue with current plan of care. Patient next due for monitoring labs in three months; these future lab orders were placed. UCE RUNNER documented in this encounter Plan of Treatment Upcoming Encounters Date Type Department Care Team (Latest Contact Info) Description 05/28/2023 9:30 AM PRODUCE RUNNER Clinical Communication Virtual Review in [place], [place] [address] [place] [address] 05/30/2023 11:00 AM PRODUCE RUNNER Appointment Department of Laboratory Medicine and Pathology, [facility] in [place], [place] [address] [place] [phone] Sole Read APRN, C.N.P., D.N.P. [address] [place] [phone] 05/30/2023 1:00 PM PRODUCE RUNNER Office Visit Division of Hematology in [address] [phone] Sole Read APRN, C.N.P., D.N.P. [address] [place] [phone] 06/17/2023 10:30 AM PRODUCE RUNNER Clinical Communication Virtual Review in [address] [address] 06/18/2023 2:00 PM PRODUCE RUNNER Office Visit Division of Endocrinology in [place], [place] [address] [place] [phone] Get Ragland APRN, C.N.P., D.N.P. [address] [place] [phone] 06/25/2023 10:30 AM CDT Appointment Department of Laboratory Medicine in [address] [phone] Bárbara Soto APRN, C.N.P. [address] [place] [phone] Scheduled Orders Name Type Priority Associated Diagnoses Orde r Schedule CBC with Differential, Blood Lab Routine Medication Therapy Road Marker Not Anticoagulant Expected: 06/25/2023, Expires: 06/24/2024 AST (Aspartate Aminotransferase) Lab Routine Medication Therapy Road Marker Not Anticoagulant Expected: 06/25/2023, Expires: 06/24/2024 ALT (Alanine Aminotransferase) Lab Routine Medication Therapy Road Marker Not Anticoagulant Expected: 06/25/2023, Expires: 06/24/2024 Creatinine with Estimated GFR Lab Routine Medication Therapy Road Marker Not Anticoagulant Expected: 06/25/2023, Expires: 06/24/2024 documented as of this encounter Visit Diagnoses Diagnosis Medication Therapy Retirement Not Anticoagulant- Primary documented in this encounter Additional Health Concerns Infection Onset Date Last Indicated Resolved Time Protective Environment 07/19/2022 07/19/2022 Assessment Noted Time PHQ-9 Depression Total Score: 0 01/01/20 16 12:53 PM CDT documented as of this encounter Care Teams Mess Cook Relationship Specialty Start Date End Date Elsewhere, Pcp PCP - General Family Medicine 11/27/20 documented as of this encounter
--- OUTSIDE RECORDS SUMMARY | 2023-05-01 16:06 | XMS_ITS | Encounter Summary ---
Author Name Unknown Organization [facility] Address [address] [place] [address] Care Team Providers Care Crossband Layer Name Role Phone Elsewhere, Pcp Primary Care Provider Unavailabl e Encounter Details Date Type Department Care Team (Late st Contact Info) Description 04/08/2023 Specialty Pharmacy [facility] [address] [place] [phone] Vicki Whittaker, Pharm.D., R.Ph. [address] [place] [phone] Social History Tobacco Use Types Packs/Day Years [...] often do you attend chur ch or worship services? Never 07/16/2022 Do you belong to any clubs o r organizations such as baptism groups, unions, fraternal or athletic groups, or [...] and heating? Not hard at all 09/19/2022 [facility] [place] [facility] of [facility]at [facility]ok Health - Occupational Stress Questionnaire Answer Date [...] your living situation today? I have a [facility] place to live 09/19/2022 Education Answer Date Recorded What is the highest level of school you have completed or the highest degree you have received? Master's degree (e.g., MA, MS, Starla, MEd, FILTRATION OPERATOR, DEBRA) 09/16/2018 Sex and Gender Information Value Date Recorded Sex Assigned at Male 10/08/2017 8:25 AM CDT Gender Identity Male 10/08/2017 8:25 AM CDT Sexual Orientation Straight 10/08/2017 8: 25 AM CDT documented as of this encounter Miscellaneous Notes * Telephone Encounter - Vicki Whittaker Pharm.D., R.Ph. - 04/08/2023 3:04 PM CST Note created for purposes of potential enrollment with [facility] and medication interaction check via [employer] interaction lap checker. No telephone contact with patient at this point. H BLEACHING RANGE BACK TENDER documented in this encounter Plan of Treatment Upcoming Encounters Date Type Department Care Team (Latest Contact Info) Description 05/28/2023 9:30 AM CLOTH BLEACHING RANGE BACK TENDER Clinical Communication Virtual Review in [address] [phone] 05/30/2023 11:00 AM CLOTH BLEACHING RANGE BACK TENDER Appointment Department of Laboratory Medicine and Pathology, [facility] in [place], [place] [address] [place] [phone] Sole Read APRN, C.N.P., D.N.P. [address] [place] [phone] 05/30/2023 1:00 PM CLOTH BLEACHING RANGE BACK TENDER Office Visit Division of Hematology in [place], [place] [address] [place] [phone] Sole Read APRN, C.N.P., D.N.P. [address] [place] [phone] 06/17/2023 10:30 AM CLOTH BLEACHING RANGE BACK TENDER Clinical Communication Virtual Review in [place], [place] 200 [place] [address] 06/18/2023 2:00 PM CLOTH BLEACHING RANGE BACK TENDER Office Visit Division of Endocrinology in [place], [place] [address] [place] [phone] Get Ragalnd APRN, C.N.P., D.N.P. [address] [place] [phone] 06/25/2023 10:30 AM CDT Appointment Department of Laboratory Medicine in [address] [phone] Bárbara Soto APRN, C.N.P. [address] [place] [phone] documented as of this encounter Visit Diagnoses Not on filedocumented in this encounter Additional Health Concerns Infection Onset Date Last Indicated Resolved Time Protective Environment 07/19/2022 07/19/2022 Assessment Noted Time PHQ-9 Depression Total Score: 0 01/01/20 16 12:53 PM CDT documented as of this encounter Care Teams Crossband Layer Relationship Specialty Start Date End Date Elsewhere, Pcp PCP - General Family Medicine 11/27/20 documented as of this encounter
--- OUTSIDE RECORDS SUMMARY | 2023-05-01 16:06 | XMS_ITS | Referral Summary ---
Author Name Unknown Organization [facility] Address [address] [place] [address] Care Team Providers Care Scientific Technical Writer Name Role Phone Elsewhere, Pcp Primary Care Provider Unavailabl e Source Comments Patient records contain information from all sites at [facility]. For routine questions regarding patient records, call [phone] during business hours, M-F 8:00 AM - 5:00 PM Central Time. Record requests for emergency care only can be directed to [phone] at any time.[facility] Encounters Date Type Department Care Team Description 04/24/2023 1:06 PM AIRFREIGHT OPERATIONS AGENT - 04/24/2023 11:59 PM AIRFREIGHT OPERATIONS AGENT Hospital Encounter Department of Radiology, [facility], in [place], [place] [address] [place] [address] Nazanin Aguirre, P.A. 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 Arthritis Psoriatic (HCC) (Primary Dx); High Risk Medication 04/08/2023 Specialty Pharmacy [facility] [address] [place] [phone] StiVicki raza Pharm.D., R.Ph. 04/01/2023 11:15 AM AIRFREIGHT OPERATIONS AGENT Infusion Department of Infusion Therapy in [address] [phone] Bárbara Soto APRN C.N.P. Arthritis Psoriatic (HCC) (Primary Dx) 03/31/2023 12:45 PM AIRFREIGHT OPERATIONS AGENT Clinical Communication Virtual Review in [address] [address] Pre-visit Intake 03/27/2023 Clinical Communication Division of Rheumatology in [address] [phone] Bárbara Soto APRN, C.N.P. Lab Monitoring (MTX, 03/26) 03/26/2023 9:26 AM AIRFREIGHT OPERATIONS AGENT - 03/26/2023 11:59 PM AIRFREIGHT OPERATIONS AGENT Hospital Encounter Department of Laboratory Medicine in [address] [phone] Bárbara Soto APRN, C.N.P. Medication Therapy Longterm Not Anticoagulant; Arthritis Psoriatic (HCC) Discharge Disposition: Home or Self Care 03/25/2023 Refill Division of Rheumatology in [address] [phone] Bárbara Soto APRN, C.N.P. Med Refill 03/19/2023 8:00 AM AIRFREIGHT OPERATIONS AGENT Virtual Visit Division of Endocrinology in [address] [phone] Get Ragland APRN, C.N.P., D.N.P. Obesity Body Mass Index 30-39.9 Adult (Primary Dx); Sleep Apnea; Hypertension Essential Primary 03/18/2023 7:30 AM AIRFREIGHT OPERATIONS AGENT Clinical Communication Virtual Review in [address] [address] Pre-visit Intake 02/21/2023 Clinical Communication Division of Rheumatology in [address] [phone] Filomena Hickey Pharm.D., R.Ph. Tereso Pagan Conversion 02/06/2023 Refill Department of Cardiovascular Diseases in [address] [phone] Ok Padilla M.D. Med Refill 02/04/2023 2:00 PM CDT Infusion Department of Infusion Therapy in [address] [phone] Bárbara Soto APRN, C.N.P. 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 Shorty AVR and ascending aortic graft on 07/14. On lifelong anticoagulation. Immunizations Name Administration Dates Next Due PCV13 04/22/2013 RZV (SHINGRIX) 04/09/2018 SARS-COV-2 (COVID-19) - PFIZER (12 years or olde r) 12/20/2020 Td (Adult), adsorbed 07/12/2003,11/06/1992 Tdap 04/17/2012 Social History Tobacco Use Types Packs/Day Years [...] often do you attend chur ch or lutheran services? Never 07/16/2022 Do you belong to [...] and heating? Not hard at all 09/19/2022 [facility] [place] of Occupat ional Health - Occupational Stress [...] your living situation today? I have a [facility] place to live 09/19/2022 Education Answer Date Recorded What is the highest level of school you have completed or the highest degree you have received? Master's degree (e.g., GEMA, MS, Starla, MEd, HOME INSPECTOR, DEBRA) 09/16/2018 Sex and Gender Information Value Date Recorded Sex Assigned at Male 10/08/2017 8:25 AM CDT Gender Identity Male 10/08/2017 8:25 AM CDT Sexual Orientation Straight 10/08/2017 8: 25 AM CDT Last Filed Vital Signs Vital Sign Reading Time Taken Comments Blood Pressure 134/83 04/17/2023 2:39 PM AIRFREIGHT OPERATIONS AGENT Pulse 77 04/17/2023 2:39 PM AIRFREIGHT OPERATIONS AGENT Temperature 37.6 ??C (99.7 ??F) 04/17/2023 2:39 PM CS T Respiratory Rate 18 04/01/2023 12:00 PM AIRFREIGHT OPERATIONS AGENT Oxygen Saturation 98% 04/01/2023 12:00 PM AIRFREIGHT OPERATIONS AGENT Inhaled Oxygen Concentration - - Weight 110 kg (243 lb 4.4 oz) 04/17/2023 2:39 PM AIRFREIGHT OPERATIONS AGENT Height 178.7 cm (5' 10.35) 04/17/2023 2:[address] Body Mass Index 34.56 04/17/2023 2:39 PM AIRFREIGHT OPERATIONS AGENT Plan of Treatment Upcoming Encounters Date Type Department Care Team (Latest Contact Info) Description 05/28/2023 9:30 AM AIRFREIGHT OPERATIONS AGENT Clinical Communication Virtual Review in [address] [address] 05/30/2023 11:00 AM AIRFREIGHT OPERATIONS AGENT Appointment Department of Laboratory Medicine and Pathology, [facility] in [place], [place] [address] [place] [phone] Sole Read APRN, C.N.P., D.N.P. [address] [place] [phone] 05/30/2023 1:00 PM AIRFREIGHT OPERATIONS AGENT Office Visit Division of Hematology in [place], [place] [address] [place] [phone] Sole Read APRN, C.N.P., D.N.P. [address] [place] [phone] 06/17/2023 10:30 AM AIRFREIGHT OPERATIONS AGENT Clinical Communication Virtual Review in [place], [place] 200 [place] [address] 06/18/2023 2:00 PM AIRFREIGHT OPERATIONS AGENT Office Visit Division of Endocrinology in [place], [place] [address] [place] [phone] Get Ragland APRN, C.N.P., D.N.P. [address] [place] [phone] 06/25/2023 10:30 AM CDT Appointment Department of Laboratory Medicine in [address] [phone] Bárbara Soto APRN, C.N.PRebecca 200 [place] [phone] Medical Devices Implanted Type Area Airport Refueling Handler Device Identifier Shelf Expiration Date Model / Serial / Lot Bonewax Implanted:Qty: 1 on 11/24/2019 by Curly Esparza M.D. at [facility] Bone or Tissue Right: Ankle Ethicon 09/12/2023 W31 / N/A / [id number] Conversions-Defa ult Historical Implant Device- 5 Implanted:2014 (Quantity not on file) Cardiac Stent Coronary Description:Device Status Te xt - Cardiac. 2 stents Conversions - Default Historical Implant Device-07/22/2002 Implanted:2002 (Quantity not on file) Cardiac Valve Prosthesis Aorta Description:St.Shorty (for bic uspid valve ) MR conditional 3T Device Status Text - CardValve. Scrw St Pthrd Nlck Lang 6.7x85 - [id number] Implanted:Qty: 2 on 11/24/2019 at [facility] Hardware e.g. pins/screws/r ods Right: Ankle Arthrex AR-8967- 1885 / / Clp Hrzn Ti 6 Clp Nirav - [id number] Implanted:Qty: 2 on 05/23/2020 by Eva Alicea M.D. at [facility] Hardware e.g. pins/screws/r ods [employer] [id number] / / Description:Biopsy marker Ocular Lens Ocular Lens Bilateral: Eye Vascular Graft 2015 Vascular Graft Aorta Description:[place] Tag Endopro thesis graft places in descending aorta in 2014 at [facility]. 3T Conditional at Normal Normal per [employer]. Vascular Graft--07/22/2002 Implanted:2002 (Quantity not on file) Vascular Graft Aorta Description:Device Status Te xt - CardValve. Procedures Procedure Name Priority Date/Time Associated Diagnosis Comments CT HEAD WITHOUT IV CONTRAST RAD - Routine (most inpatients and all outpatients) 04/24/2023 1:28 PM AIRFREIGHT OPERATIONS AGENT Traumatic Subdural Hemorrhage With Loss Of Consciousness Status Unknown Initial Encounter (HCC) Craniotomy Status Post C-REACTIVE PROTEIN (CRP), S/P Routine 03/26/2023 9:31 AM AIRFREIGHT OPERATIONS AGENT Arthritis Psoriatic (HCC) SEDIMENTATION RATE, B Routine 03/26/2023 9:31 AM AIRFREIGHT OPERATIONS AGENT Arthritis Psoriatic (HCC) CREATININE WITH EGFR, S/P Routine 03/26/2023 9:31 AM AIRFREIGHT OPERATIONS AGENT Medication Therapy Chief I Dispatcher Not Anticoagulant ASPARTATE AMINOTRANSFERASE (AST), S/P Routine 03/26/2023 9:31 AM AIRFREIGHT OPERATIONS AGENT Medication Therapy Longterm Not Anticoagulant CBC WITH DIFFERENTIAL, B Routine 03/26/2023 9:31 AM AIRFREIGHT OPERATIONS AGENT Medication Therapy Chief I Dispatcher Not Anticoagulant from Last 3 Months Results * CT Head without IV Contrast (04/24/2023 1:28 PM AIRFREIGHT OPERATIONS AGENT) Anatomical Region Laterality Modality Head, Neuroradiology RST LOS , Neuroradiology ARZ [facility], Neuroradiology FLA LOS N/A Computed Tomography, Compute d Tomography 04/24/2023 1:29 PM AIRFREIGHT OPERATIONS AGENT Impressions 04/24/2023 1:41 PM AIRFREIGHT OPERATIONS AGENT Left frontal craniotomy with no evidence of residual or recurrent subdural hematoma. Narrative 04/24/2023 1:41 PM AIRFREIGHT OPERATIONS AGENT EXAM: CT HEAD WITHOUT IV CONTRAST COMPARISON: [...] PROCEDURES * Sedimentation Rate (03/26/2023 9:31 AM AIRFREIGHT OPERATIONS AGENT) Sedimentation Rate, B 11 0 - 22 mm/1 h 03/26/2023 1:09 PM AIRFREIGHT OPERATIONS AGENT RDWG Blood (Blood, Venous) 03/26/2023 9:31 AM AIRFREIGHT OPERATIONS AGENT 03/26/2023 12:23 PM AIRFREIGHT OPERATIONS AGENT Bárbara Soto APRN C.N.P. LAB BLOOD ADD-ON [facility] [address] [place] [phone], [facility] RDWG [facility] in [place] [address] [place] [phone] * CBC with Differential, Blood (03/26/2023 9:31 AM AIRFREIGHT OPERATIONS AGENT) Hemoglobin 14.0 13.2 - 16.6 g/dL 03/26/2023 9:43 AM AIRFREIGHT OPERATIONS AGENT CNFL Hematocrit 41.6 38.3 - 48.6 % 03/26/2023 9:43 AM AIRFREIGHT OPERATIONS AGENT CNFL Erythrocytes 4.40 4.35 - 5.65 x10(12)/L 03/26/2023 9:43 AM AIRFREIGHT OPERATIONS AGENT CNFL MCV 94.5 78.2 - 97.9 fL 03/26/2023 9:43 AM AIRFREIGHT OPERATIONS AGENT CNFL RBC Distrib Width 12.2 11.8 - 14.5 % 03/26/2023 9:43 AM AIRFREIGHT OPERATIONS AGENT CNFL Platelet Count 145 135 - 317 x10(9)/L 03/26/2023 9:43 AM AIRFREIGHT OPERATIONS AGENT CNFL Leukocytes 5.0 3.4 - 9.6 x10(9)/L 03/26/2023 9:43 AM AIRFREIGHT OPERATIONS AGENT CNFL Neutrophils 2.29 1.56 - 6.45 x10(9)/L 03/26/2023 9:43 AM AIRFREIGHT OPERATIONS AGENT CNFL Lymphocytes 1.77 0.95 - 3.07 x10(9)/L 03/26/2023 9:43 AM AIRFREIGHT OPERATIONS AGENT CNFL Monocytes 0.38 0.26 - 0.81 x10(9)/L 03/26/2023 9:43 AM AIRFREIGHT OPERATIONS AGENT CNFL Eosinophils 0.48 0.03 - 0.48 x10(9)/L 03/26/2023 9:43 AM AIRFREIGHT OPERATIONS AGENT CNFL Basophils 0.04 0.01 - 0.08 x10(9)/L 03/26/2023 9:43 AM AIRFREIGHT OPERATIONS AGENT CNFL Blood (Blood, Venous) 03/26/2023 9:31 AM AIRFREIGHT OPERATIONS AGENT 03/26/2023 9:32 AM AIRFREIGHT OPERATIONS AGENT Bárbara Soto APRN C.N.P. LAB BLOOD ADD-ON Performing Organization Address City/State/[facility] Co de Phone Number [facility] [address] [place] [phone], [facility] in [address] [address] * CRP (C-Reactive Protein) (03/26/2023 9:31 AM AIRFREIGHT OPERATIONS AGENT) C-Reactive Protein (CRP), P <3.0 <5.0 mg/L 03/26/2023 9:50 AM AIRFREIGHT OPERATIONS AGENT CNFL Blood (Blood, Venous) 03/26/2023 9:31 AM AIRFREIGHT OPERATIONS AGENT 03/26/2023 9:32 AM AIRFREIGHT OPERATIONS AGENT Bindu Sawant APRNN.P. LAB BLOOD ADD-ON [address] [address], [address] [address] * AST (Aspartate Aminotransferase) (03/26/2023 9:31 AM AIRFREIGHT OPERATIONS AGENT) Aspartate Aminotransferase (AST), P 24 8 - 48 U/L 03/26/2023 9:50 AM AIRFREIGHT OPERATIONS AGENT [place] Blood (Blood, Venous) 03/26/2023 9:31 AM AIRFREIGHT OPERATIONS AGENT 03/26/2023 9:32 AM AIRFREIGHT OPERATIONS AGENT Bindu Sawant APRNN.P. LAB BLOOD ADD-ON [address] [address], [place] [address] [address] * Creatinine with Estimated GFR (03/26/2023 9:31 AM AIRFREIGHT OPERATIONS AGENT) Creatinine 1.16 0.74 - 1.35 mg/dL 03/26/2023 9:50 AM AIRFREIGHT OPERATIONS AGENT [place] Estimated GFR (eGFR) 69 >=60 mL/min/BSA 03/26/2023 9:50 AM AIRFREIGHT OPERATIONS AGENT [place] Comment: Estimated GFR calculated using the 2020 CKD_EPI creatinine equation. Blood (Blood, Venous) 03/26/2023 9:31 AM AIRFREIGHT OPERATIONS AGENT 03/26/2023 9:32 AM AIRFREIGHT OPERATIONS AGENT Bindu Sawant APRNN.P. LAB BLOOD ADD-ON [address] [address], [place] [address] [address] from Last 3 Months Additional Health Concerns Infection Onset Date Last Indicated Protective Environment 07/19/2022 3 Advance Directives For more information, please contact: [phone] Documents on File Type Date Recorded Patient Fiberglass Technician Expl anation Advance Directives 01/18/2021 11:23 AM Daly Isaacestrella Jeweldee Charlette HCPOA/ADVOCATE/AGENT/R EPRESENTATIVE/SURROGAT E Latest Code Status on [...] Second Alternate Health Care Agent Care Teams Scientific Technical Writer Relationship Specialty Start Date End Date Elsewhere, Pcp PCP - General Family Medicine 11/27/20
--- OUTSIDE RECORDS SUMMARY | 2023-05-01 16:07 | XMS_ITS | Encounter Summary ---
Author Name Unknown Organization [facility] Address [address] [place] [address] Care Team Providers Care Route Sales Trainee Name Role Phone Elsewhere, Pcp Primary Care Provider Unavailabl e Reason for Visit * Reason Onset Date Comments Simponi Aria Conversion 02/21/2023 Encounter Details Date Type Department Care Team (Latest Contact Info) Description 02/21/2023 Clinical Communication Division of Rheumatology in [place], [place] [address] [place] [phone] Filomena Hickey, Pharm.D., R.Ph. [address] [place] [phone] Simponi Aria Conversion Social History Tobacco Use Types Packs/Day Years [...] often do you attend chur ch or scientologist services? Never 07/16/2022 Do you belong to any clubs o r organizations such as restorationist groups, unions, fraternal or athletic groups, or [...] and heating? Not hard at all 09/19/2022 [facility] of Occupat ional Health - [...] your living situation today? I have a [facility] place to live 09/19/2022 Education Answer Date Recorded What is the highest level of school you have completed or the highest degree you have received? Master's degree (e.g., MA, MS, Starla, MEd, PRESS FEEDER, DEBRA) 09/16/2018 Sex and Gender Information Value Date Recorded Sex Assigned at Male 10/08/2017 8:25 AM CDT Gender Identity Male 10/08/2017 8:25 AM CDT Sexual Orientation Straight 10/08/2017 8: 25 AM CDT documented as of this encounter Plan of Treatment Upcoming Encounters Date Type Department Care Team (Latest Contact Info) Description 05/28/2023 9:30 AM CEMENT MASON APPRENTICE Clinical Communication Virtual Review in [place], [place] [address] [place] [address] 05/30/2023 11:00 AM CEMENT MASON APPRENTICE Appointment Department of Laboratory Medicine and Pathology, [facility], in [place], [place] [address] [place] [phone] Sole Read APRN, C.N.P., D.N.P. [address] [place] [phone] 05/30/2023 1:00 PM CEMENT MASON APPRENTICE Office Visit Division of Hematology in [place], [place] [address] [place] [phone] Sole Read APRN, C.N.P., D.N.P. [address] [place] [phone] 06/17/2023 10:30 AM CEMENT MASON APPRENTICE Clinical Communication Virtual Review in [place], [place] 200 [place] [address] 06/18/2023 2:00 PM CEMENT MASON APPRENTICE Office Visit Division of Endocrinology in [address] [phone] Get Ragland APRN, C.N.P., D.N.P. [address] [place] [phone] 06/25/2023 10:30 AM CDT Appointment Department of Laboratory Medicine in [address] [phone] Bárbara Soto APRN, C.N.P. [address] [place] [phone] documented as of this encounter Visit Diagnoses Not on filedocumented in this encounter Additional Health Concerns Infection Onset Date Last Indicated Resolved Time Protective Environment 07/19/2022 07/19/2022 Assessment Noted Time PHQ-9 Depression Total Score: 0 01/01/20 16 12:53 PM CDT documented as of this encounter Care Teams Route Sales Trainee Relationship Specialty Start Date End Date Elsewhere, Pcp PCP - General Family Medicine 11/27/20 documented as of this encounter
--- OUTSIDE RECORDS SUMMARY | 2023-05-01 16:07 | XMS_ITS | Encounter Summary ---
Author Name Unknown Organization [facility] Address [address] [place] [address] Care Team Providers Care Lightning Rod Erector Name Role Phone Elsewhere, Pcp Primary Care Provider Unavailabl e Reason for Visit * Reason Comments Outpatient Infusion * Episode Based Medications (Routine) - Authorized Specialty Diagnoses / Procedures Referred By Contac t Referred To Contact Diagnoses Arthritis Psoriatic (HCC) Bárbara Soto APRN, C.N.P. [address] [place] [phone] [place] [address] [place] [phone] Referral ID Status Reason Start Date Expiration Date V isits Requested Visits Authorized [id number] Authorized 11/14/2022 11/13/2024 99 99 Encounter Details Date Type Department Care Team (Late st Contact Info) Description 02/04/2023 2:00 PM CDT Infusion Department of Infusion Therapy in [address] [phone] Bárbara Soto APRN, C.N.P. [address] [place] [phone] Arthritis Psoriatic (HCC) (Primary Dx) Social History [...] often do you attend chur ch or zoroastrianism services? Never 07/16/2022 Do you belong to any clubs o r organizations such as scientologist groups, unions, fraternal or athletic groups, or [...] and heating? Not hard at all 09/19/2022 [facility] - [...] living situation today? I have a [facility] place to live 09/19/2022 Education Answer Date Recorded What is the highest level of school you have completed or the highest degree you have received? Master's degree (e.g., MA, MS, Starla, MEd, LABOR CUSTODIAN, DEBRA) 09/16/2018 Sex and Gender Information Value Date Recorded Sex Assigned at Male 10/08/2017 8:25 AM CDT Gender Identity Male 10/08/2017 8:25 AM CDT Sexual Orientation Straight 10/08/2017 8: 25 AM CDT documented as of this encounter Last Filed Vital Signs Vital Sign Reading Time Taken Comments Blood Pressure 150/74 02/04/2023 1:45 PM CDT Pulse 77 02/04/2023 1:45 PM CDT Temperature 35.8 ??C (96.4 ??F) 02/04/2023 1:45 PM CD T Respiratory Rate 18 02/04/2023 1:45 PM CDT Oxygen Saturation 97% 02/04/2023 1:45 PM CDT Inhaled Oxygen Concentration - - Weight 111 kg (244 lb 11.4 oz) 02/04/2023 1:45 P M CDT Height - - Body Mass Index 35.83 11/27/2022 10:50 AM CDT documented in this encounter Plan of Treatment Upcoming Encounters Date Type Department Care Team (Latest Contact Info) Description 05/28/2023 9:30 AM DRY FOLDER CLOTH Clinical Communication Virtual Review in [address] [phone] 05/30/2023 11:00 AM DRY FOLDER CLOTH Appointment Department of Laboratory Medicine and Pathology, [facility] in [place], [place] [address] [place] [phone] Sole Read APRN, C.N.P., D.N.P. [address] [place] [phone] 05/30/2023 1:00 PM DRY FOLDER CLOTH Office Visit Division of Hematology in [place], [place] [address] [place] [phone] Sole Read APRN, C.N.P., D.N.P. [address] [place] [phone] 06/17/2023 10:30 AM DRY FOLDER CLOTH Clinical Communication Virtual Review in [place], [place] 200 [place] [address] 06/18/2023 2:00 PM DRY FOLDER CLOTH Office Visit Division of Endocrinology in [place], [place] [address] [place] [phone] Get Ragland APRN, C.N.P., D.N.P. [address] [place] [phone] 06/25/2023 10:30 AM CDT Appointment Department of Laboratory Medicine in [address] [phone] Bárbara Soto APRN, C.N.P. [address] [place] [phone] documented as of this encounter Visit Diagnoses Diagnosis Arthritis Psoriatic (HCC)- Primary documented in this encounter Administered Medications Inactive Administered Medications - up to 3 most recent administrations Medication Order MAR Action Action Date Dose Rate Site golimumab 225 mg in NaCl 0.9% IVPB (SIMPONI ARIA) 225 mg (rounded from 222 mg = 2 mg/kg ? 111 kg), intravenous, at 200 mL/hr, Administer over 30 Minutes, Once, On Fri02/04/23 at 1415, For 1 dose, Do NOT shake. Use in-line filter. Do NOT refrigerate. New Bag 02/04/2023 2:20 PM CDT 225 mg 200 mL/hr documented in this encounter Additional Health Concerns Infection Onset Date Last Indicated Resolved Time Protective Environment 07/19/2022 07/19/2022 Assessment Noted Time PHQ-9 Depression Total Score: 0 01/01/20 16 12:53 PM CDT documented as of this encounter Care Teams Lightning Rod Erector Relationship Specialty Start Date End Date Elsewhere, Pcp PCP - General Family Medicine 11/27/20 documented as of this encounter
--- OUTSIDE RECORDS SUMMARY | 2023-05-01 16:07 | XMS_ITS | Encounter Summary ---
Author Name Unknown Organization [facility] Address [address] [place] [address] Care Team Providers Care Installer Name Role Phone Elsewhere, Pcp Primary Care Provider Unavailabl e Reason for Visit * Reason Comments Med Refill Encounter Details Date Type Department Care Team (Late st Contact Info) Description 02/06/2023 Refill Department of Cardiovascular Diseases in [address] [phone] Ok Padilla M.D. 200 [place] [phone] Med Refill Social History Tobacco Use Types Packs/Day Years [...] How often do you attend chur or restorationist services? Never 07/16/2022 Do you belong to any clubs o r organizations such as samaritan groups, unions, fraternal or athletic groups, or [...] and heating? Not hard at all 09/19/2022 [facility] - Occupational Stress Questionnaire Answer Date [...] your living situation today? I have a [facility] place to live 09/19/2022 Education Answer Date Recorded What is the highest level of school you have completed or the highest degree you have received? Master's degree (e.g., MA, MS, Starla, MEd, DRAMATIC AGENT, DEBRA) 09/16/2018 Sex and Gender Information Value Date Recorded Sex Assigned at Male 10/08/2017 8:25 AM CDT Gender Identity Male 10/08/2017 8:25 AM CDT Sexual Orientation Straight 10/08/2017 8: 25 AM CDT documented as of this encounter Plan of Treatment Upcoming Encounters Date Type Department Care Team (Latest Contact Info) Description 05/28/2023 9:30 AM BSA/AML COMPLIANCE OFFICER Clinical Communication Virtual Review in [place], [place] 200 [place] [address] 05/30/2023 11:00 AM BSA/AML COMPLIANCE OFFICER Appointment Department of Laboratory Medicine and Pathology, [facility], in [place], [place] [address] [place] [phone] Sole Read APRN, C.N.P., D.N.P. [address] [place] [phone] 05/30/2023 1:00 PM BSA/AML COMPLIANCE OFFICER Office Visit Division of Hematology in [place], [place] [address] [place] [phone] Sole Read APRN, C.N.P., D.N.P. [address] [place] [phone] 06/17/2023 10:30 AM BSA/AML COMPLIANCE OFFICER Clinical Communication Virtual Review in [place], [place] 200 [place] [address] 06/18/2023 2:00 PM BSA/AML COMPLIANCE OFFICER Office Visit Division of Endocrinology in [place], [place] [address] [place] [phone] Get Ragland APRN, C.N.P., D.N.P. [address] [place] [phone] 06/25/2023 10:30 AM CDT Appointment Department of Laboratory Medicine in [address] [phone] Bárbara Soto APRN, C.N.P. [address] [place] [phone] documented as of this encounter Visit Diagnoses Not on filedocumented in this encounter Additional Health Concerns Infection Onset Date Last Indicated Resolved Time Protective Environment 07/19/2022 07/19/2022 Assessment Noted Time PHQ-9 Depression Total Score: 0 01/01/20 16 12:53 PM CDT documented as of this encounter Care Teams Installer Relationship Specialty Start Date End Date Elsewhere, Pcp PCP - General Family Medicine 11/27/20 documented as of this encounter
--- OUTSIDE RECORDS SUMMARY | 2023-05-01 16:07 | XMS_ITS | Encounter Summary ---
Author Name Unknown Organization [facility] Address [address] [place] [address] Care Team Providers Care House Fellow Name Role Phone Elsewhere, Pcp Primary Care Provider Unavailabl e Reason for Visit * Reason Onset Date Comments Lab Monitoring 12/19/2022 mtx Encounter Details Date Type Department Care Team (Latest Contact Info) Description 12/19/2022 Clinical Communication Division of Rheumatology in [place], [place] [address] [place] [phone] Lacy Taylor, RRebeccaN. Lab Monitoring (mtx) Social History Tobacco Use Types Packs/Day Years [...] often do you attend chur ch or baptist services? Never 07/16/2022 Do you belong to any clubs o r organizations such as caodaism groups, unions, fraternal or athletic groups, or [...] all 09/19/2022 [facility] - Occupational Stress Questionnaire Answer Date [...] your living situation today? I have a [facility] place to live 09/19/2022 Education Answer Date Recorded What is the highest level of school you have completed or the highest degree you have received? Master's degree (e.g., MA, MS, Starla, MEd, PRINCIPAL MECHANICAL ENGINEER, DEBRA) 09/16/2018 Sex and Gender Information Value Date Recorded Sex Assigned at Male 10/08/2017 8:25 AM CDT Gender Identity Male 10/08/2017 8:25 AM CDT Sexual Orientation Straight 10/08/2017 8: 25 AM CDT documented as of this encounter Miscellaneous Notes * Telephone Encounter - Lacy Taylor RRebeccaN. - 12/19/2022 1:05 PM CDT Documentation note only, patient not contacted ASSESSMENT Rheumatology monitoring labs completed on 12/18/2022 for methotrexate monitoring were reviewed per provider order. Labs reviewed: absolute neutrophil count, AST, creatinine, hemoglobin, leukocytes, platelets Labs viewable in Labs Tab of Chart Review. PLAN Patient to continue with current plan of care. Patient next due for monitoring labs in three months; these future lab orders were placed. documented in this encounter Plan of Treatment Upcoming Encounters Date Type Department Care Team (Latest Contact Info) Description 05/28/2023 9:30 AM SAT MATH TUTOR Clinical Communication Virtual Review in [place], [place] 200 [place] [address] 05/30/2023 11:00 AM SAT MATH TUTOR Appointment Department of Laboratory Medicine and Pathology, [facility] in [place], [place] [address] [place] [phone] Sole Read APRN, C.N.P., D.N.P. [address] [place] [phone] 05/30/2023 1:00 PM SAT MATH TUTOR Office Visit Division of Hematology in [place], [place] [address] [place] [phone] Sole Read APRN, C.N.P., D.N.P. [address] [place] [phone] 06/17/2023 10:30 AM SAT MATH TUTOR Clinical Communication Virtual Review in [place], [place] 200 [place] [address] 06/18/2023 2:00 PM SAT MATH TUTOR Office Visit Division of Endocrinology in [address] [phone] Get Ragland APRN, C.N.P., D.N.P. [address] [place] [phone] 06/25/2023 10:30 AM CDT Appointment Department of Laboratory Medicine in [address] [phone] Bárbara Soto APRN, C.N.P. [address] [place] [phone] documented as of this encounter Results * Creatinine with Estimated GFR (03/26/2023 9:31 AM SAT MATH TUTOR) Creatinine 1.16 0.74 - 1.35 mg/dL 03/26/2023 9:50 AM SAT MATH TUTOR CNFL Estimated GFR (eGFR) 69 >=60 mL/min/BSA 03/26/2023 9:50 AM SAT MATH TUTOR CNFL Comment: Estimated GFR calculated using the 2020 CKD_EPI creatinine equation. Blood (Blood, Venous) 03/26/2023 9:31 AM SAT MATH TUTOR 03/26/2023 9:32 AM SAT MATH TUTOR Bárbara Soto APRN, Lanny.N.P. LAB BLOOD ADD-ON Performing Organization Address City/[facility]/ZIP [place] [address], [place] [address] * AST (Aspartate Aminotransferase) (03/26/2023 9:31 AM SAT MATH TUTOR) Aspartate Aminotransferase (AST), P 24 8 - 48 U/L 03/26/2023 9:50 AM SAT MATH TUTOR CNFL Blood (Blood, Venous) 03/26/2023 9:31 AM SAT MATH TUTOR 03/26/2023 9:32 AM SAT MATH TUTOR Bárbara Soto APRN, C.N.P. LAB BLOOD ADD-ON Performing Organization Address City/[facility]/ZIP Co de Phone Number [facility] [address] [place] [address], [place] [address] * CBC with Differential, Blood (03/26/2023 9:31 AM SAT MATH TUTOR) Hemoglobin 14.0 13.2 - 16.6 g/dL 03/26/2023 9:43 AM SAT MATH TUTOR CNFL Hematocrit 41.6 38.3 - 48.6 % 03/26/2023 9:43 AM SAT MATH TUTOR CNFL Erythrocytes 4.40 4.35 - 5.65 x10(12)/L 03/26/2023 9:43 AM SAT MATH TUTOR CNFL MCV 94.5 78.2 - 97.9 fL 03/26/2023 9:43 AM SAT MATH TUTOR CNFL RBC Distrib Width 12.2 11.8 - 14.5 % 03/26/2023 9:43 AM SAT MATH TUTOR CNFL Platelet Count 145 135 - 317 x10(9)/L 03/26/2023 9:43 AM SAT MATH TUTOR CNFL Leukocytes 5.0 3.4 - 9.6 x10(9)/L 03/26/2023 9:43 AM SAT MATH TUTOR CNFL Neutrophils 2.29 1.56 - 6.45 x10(9)/L 03/26/2023 9:43 AM SAT MATH TUTOR CNFL Lymphocytes 1.77 0.95 - 3.07 x10(9)/L 03/26/2023 9:43 AM SAT MATH TUTOR CNFL Monocytes 0.38 0.26 - 0.81 x10(9)/L 03/26/2023 9:43 AM SAT MATH TUTOR CNFL Eosinophils 0.48 0.03 - 0.48 x10(9)/L 03/26/2023 9:43 AM SAT MATH TUTOR CNFL Basophils 0.04 0.01 - 0.08 x10(9)/L 03/26/2023 9:43 AM SAT MATH TUTOR CNFL Blood (Blood, Venous) 03/26/2023 9:31 AM SAT MATH TUTOR 03/26/2023 9:32 AM SAT MATH TUTOR Bárbara Soto APRN, C.N.P. LAB BLOOD ADD-ON Performing Organization Address City/State/[facility] Co de Phone Number [facility] [address] [place] [phone], [facility] CNFL [facility] in [address] [address] documented in this encounter Visit Diagnoses Diagnosis Medication Therapy Store Team Leader Not Anticoagulant- Primary documented in this encounter Additional Health Concerns Infection Onset Date Last Indicated Resolved Time Protective Environment 07/19/2022 07/19/2022 Assessment Noted Time PHQ-9 Depression Total Score: 0 01/01/20 16 12:53 PM CDT documented as of this encounter Care Teams House Fellow Relationship Specialty Start Date End Date Elsewhere, Pcp PCP - General Family Medicine 11/27/20 documented as of this encounter
--- OUTSIDE RECORDS SUMMARY | 2023-05-01 16:07 | XMS_ITS | Encounter Summary ---
Author Name Unknown Organization [facility] Address [address] [place] [address] Care Team Providers Care Putty Maker Name Role Phone Elsewhere, Pcp Primary Care Provider Unavailabl e Reason for Referral * Outpatient (Routine) - Authorized Specialty Diagnoses / Procedures Referred By Nuvia de leon Referred To Contact Endocrinology Diagnoses Obesity Body Mass Index 30-39.9 Adult Sleep Apnea Hypertension Essential Primary Obie Get Samaniego APRN, C.N.P., D.N.P. [address] [place] [phone] [facility] Referral ID Status Reason Start Date Expiration Date V isits Requested Visits Authorized [id number] Authorized 03/19/2023 03/18/2026 1 1 EDO MAN Reason for Visit * Outpatient (Routine) - Closed Specialty Diagnoses / Procedures Referred By Nuvia de leon Referred To Contact Endocrinology Diagnoses Obesity Body Mass Index 30-39.9 Adult Sleep Apnea Hypertension Essential Primary Get Ragland APRN, C.N.P., D.N.P. [address] [place] [phone] [facility] Referral ID Status Reason Start Date Expiration Date Visits Re quested Visits Authorized [id number] Closed 11/28/2022 11/27/2025 1 1 Encounter Details Date Type Department Care Team (Latest Contact Info) Description 03/19/2023 8:00 AM TORPEDO MAN Virtual Visit Division of Endocrinology in [place], [place] [address] [place] [phone] Get Ragland APRN, C.N.P., D.N.P. [address] [place] [phone] Obesity Body Mass Index 30-39.9 Adult (Primary Dx); Sleep Apnea; Hypertension Essential Primary Social History Tobacco Use Types Packs/Day Years [...] often do you attend chur ch or muslim services? Never 07/16/2022 Do you belong to any clubs o r organizations such as sikhism groups, unions, fraternal or athletic groups, or [...] and heating? Not hard at all 09/19/2022 [facility] - Occupational Stress Questionnaire Answer Date [...] your living situation today? I have a [facility] place to live 09/19/2022 Education Answer Date Recorded What is the highest level of school you have completed or the highest degree you have received? Master's degree (e.g., MA, MS, Starla, MEd, GENERAL DENTIST, DEBRA) 09/16/2018 Sex and Gender Information Value Date Recorded Sex Assigned at Male 10/08/2017 8:25 AM CDT Gender Identity Male 10/08/2017 8:25 AM CDT Sexual Orientation Straight 10/08/2017 8: 25 AM CDT documented as of this encounter Last Filed Vital Signs Vital Sign Reading Time Taken Comments Blood Pressure - - Pulse - - Temperature - - Respiratory Rate - - Oxygen Saturation - - Inhaled Oxygen Concentration - - Weight 105 kg (232 lb) 03/19/2023 8:09 AM TORPEDO MAN Height 176 cm (5' 9.29) 03/19/2023 8:09 AM TORPEDO MAN Body Mass Index 33.97 03/19/2023 8:09 AM TORPEDO MAN documented in this encounter Progress Notes * Renejaiden Get Samaniego, JASON, C.N.P., D.N.P. - 03/19/2023 8:00 AM CST SUBJECTIVE History of present illness: Get [facility] a [facility]-up appointment for ongoing evaluation and assistance with weight loss while continuing to pursue efforts at weight loss. Today's visit was completed via telephone call from provider's office to patient's home due to the COVID 19 pandemic. Patient consented to this service. 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 Obesity related comorbidities include Obstructive Sleep Apnea, Hypertension Current medications for weight management: None Previous medications used for weight management: Wegovy was prescribed but not started due to cost Current dietary habits Trying to eat 3 square meals per day. Eating things that are a bit more easily digestible right now. No alcohol at this time, which he has cut out for the past 3 weeks. Snacks: trying to avoid Beverages: coffee, water Calorie Goal: Not monitoring calorie intake at this time. Current physical activity: Certainly a bit decreased due to his recent TBI. He has been walking, but gait has been a bit unstable so far. Hoping to start PT soon. Activity Tracker Use: no Pertinent review of systems otherwise grossly negative. The following portions of the patient's history were reviewed and updated as appropriate: visit questionnaire, allergies, current medications, family history, medical history, social history, surgical history, and problem list. OBJECTIVE VITAL SIGNS There were no vitals filed for this visit. ASSESSMENT / PLAN #1 Obesity Body Mass Index 30-39.9 Adult #2 Sleep Apnea #3 Hypertension Essential Primary Other orders - Endocrinology office visit (clinic) - Endocrinology office visit (clinic); Future; Expected date: 06/18/2023 He would like to look into options again and get back to us regarding his decision about medications. Given interactions with other medications, he would be a candidate for topiramate, naltrexone, orlstat, or plenity. Will plan to enter orders after he gets back to us on the portal. Follow up: Patient to follow up in 3 months with myself. Weight Loss Medication Management Guidelines: For patients taking medications for weight loss, if the patient cannot tolerate the medication due to side effects including gastrointestinal, mood, or other side effects, they can stop the medication. For issues with cost of weight loss medications, patients need to look at the video producer's website for decreased copayment coupons, check with their insurance company to check coverage, and check different pharmacies for rodriguez comparison prior to a new prescription. Weight loss medications are often not covered by insurance companies. Injectable medications like GLP1 agonists are being used on-label and off-label for weight management. If the patient gets a prescription for one of these medications and is later not covered by insurance, they again need to check with their insurance company to find out which medication in this class is covered, if any, prior to prescribing the next option. The patient can also ask their insurance company and their pharmacy for cost estimates to see if that cost would be acceptable to them. Current costs of injectable weight loss medications could range anywhere from $0 to $2000 per month. If patient requests refills of medications, please check if refills have already been ordered. I personally spent a total of 25 minutes in lis-idao-rf-face time performing review of the medical record, care coordination, documentation, and discussion with the patient as described above. EDO MAN documented in this encounter Plan of Treatment Upcoming Encounters Date Type Department Care Team (Latest Contact Info) Description 05/28/2023 9:30 AM TORPEDO MAN Clinical Communication Virtual Review in [address] [address] 05/30/2023 11:00 AM TORPEDO MAN Appointment Department of Laboratory Medicine and Pathology, [facility] in [address] [phone] Sole Read APRN, C.N.P., D.N.P. [address] [place] [phone] 05/30/2023 1:00 PM TORPEDO MAN Office Visit Division of Hematology in [address] [phone] Sole Read APRN, C.N.P., D.N.P. [address] [place] [phone] 06/17/2023 10:30 AM TORPEDO MAN Clinical Communication Virtual Review in [address] [address] 06/18/2023 2:00 PM TORPEDO MAN Office Visit Division of Endocrinology in [address] [phone] Get Ragland APRN, C.N.P., D.N.P. [address] [place] [phone] 06/25/2023 10:30 AM CDT Appointment Department of Laboratory Medicine in [address] [phone] Bárbara Soto, JASON, C.N.P. [address] [place] [phone] Scheduled Referrals Name Type Priority Associated Diagnoses Order Schedule Endocrinology office visit (clinic) Outpatient Referral Routine Obesity Body Mass Index 30-39.9 Adult Sleep Apnea Hypertension Essential Primary Expected: 06/18/2023 (Approximate), Expires: 06/17/2024 documented as of this encounter Visit Diagnoses Diagnosis Obesity Body Mass Index 30-39.9 Adult- Primary Sleep Apnea Hypertension Essential Primary documented in this encounter Additional Health Concerns Infection Onset Date Last Indicated Resolved Time Protective Environment 07/19/2022 07/19/2022 Assessment Noted Time PHQ-9 Depression Total Score: 0 01/01/20 16 12:53 PM CDT documented as of this encounter Care Teams Putty Maker Relationship Specialty Start Date End Date Elsewhere, Pcp PCP - General Family Medicine 11/27/20 documented as of this encounter
--- OUTSIDE RECORDS SUMMARY | 2023-05-01 16:07 | XMS_ITS | Encounter Summary ---
Author Name Unknown Organization [facility] Address [address] [place] [address] Care Team Providers Care Legal Editor Name Role Phone Elsewhere, Pcp Primary Care Provider Unavailabl e Reason for Referral * MRI/CAT/PET Scan (Routine) - Closed Specialty Diagnoses / Procedures Referred By Contac t Referred To Contact Radiology Diagnoses Arthritis Psoriatic (HCC) Pain Hand Left Procedures MR Hand Left without and with IV Contrast Bárbara Soto APRN, C.N.P. [address] [place] [address] [facility] Referral ID Status Reason Start Date Expiration Date Visits Re quested Visits Authorized [id number] Closed 12/24/2022 12/24/2023 1 1 Reason for Visit * MRI/CAT/PET Scan (Routine) - Closed Specialty Diagnoses / Procedures Referred By Contac t Referred To Contact Radiology Diagnoses Arthritis Psoriatic (HCC) Pain Hand Left Procedures MR Hand Left without and with IV Contrast Bárbara Soto APRN, C.N.P. [address] [place] [phone] [facility] Referral ID Status Reason Start Date Expiration Date Visits Re quested Visits Authorized [id number] Closed 12/24/2022 12/24/2023 1 1 Encounter Details Date Type Department Care Team (Latest Contact Info) Description 01/06/2023 3:44 PM CDT - 01/06/2023 11:59 PM CDT Hospital Encounter Department of Radiology, [facility], in [place], [place] [address] [place] [phone] Bárbara Soto, JASON, C.N.P. [address] [place] [address] Arthritis Psoriatic (HCC); Pain Hand Left Discharge Disposition: Home or Self Care Social [...] often do you attend chur ch or sikh services? Never 07/16/2022 Do you belong to any clubs o r organizations such as sabianist groups, unions, fraternal or athletic groups, or [...] and heating? Not hard at all 09/19/2022 [facility] - Occupational Stress Questionnaire Answer Date Recorded [...] your living situation today? I have a [facility] place to live 09/19/2022 Education Answer Date Recorded What is the highest level of school you have completed or the highest degree you have received? Master's degree (e.g., MA, MS, Starla, MEd, ELECTROCARDIOGRAPHIC TECHNICIAN, DEBRA) 09/16/2018 Sex and Gender Information Value [...] 10 mg by mouth daily. 0 03/11/2015 cholecalciferol (VITAMIN D3) 1,000 Unit capsule Take 2,000 Units by mouth daily. 0 05/02/2014 folic acid 1 mg tabletIndications:Ar thritis Psoriatic (HCC) Take 2 tablets (2,000 mcg total) by mouth daily. 180 tablet 3 09/26/2022 furosemide (LASIX) 20 mg tablet TAKE 1 TABLET BY MOUTH EVERY DAY 90 tablet 3 06/27/2022 loperamide (IMODIUM A-D) 2 mg tablet Take 1 mg by mouth 2 (two) times a day as needed. 0 needle, disp, 27 gauge 27 gauge x [...] 7.5 mg all other days 0 10/19/2020 atorvastatin (LIPITOR) 40 mg tablet TAKE 1 TABLET BY MOUTH EVERY DAY 90 tablet 3 01/03/2022 02/06/2023 celecoxib (CeleBREX) 100 mg capsuleIndications:A rthritis Psoriatic (HCC) TAKE 1 CAPSULE BY MOUTH TWICE A DAY 180 capsule 3 05/24/2022 03/18/2023 labetalol (NORMODYNE) 200 mg tablet Take 400 mg by mouth 3 (three) times a day. 2 tablets 3 times daily 10 02/26/2018 03/18/2023 losartan (COZAAR) 100 mg tablet Take 100 mg by mouth daily. 3 01/01/2018 03/18/2023 methotrexate 25 mg/mL injectionIndications :Arthritis Psoriatic (HCC) Inject 0.7 mL (17.5 mg total) under the skin once a week. 10 mL 1 09/26/2022 03/27/2023 mirtazapine (REMERON) 30 mg tablet Take 30 mg by mouth at bedtime. 0 03/18/2023 semaglutide (WEGOVY) 1 mg/0.5 mL pen injector injection Inject 1 mg under the skin every 7 (seven) days. 2 mL 0 09/05/2022 03/19/2023 documented as of this encounter Plan of Treatment Upcoming Encounters Date Type Department Care Team (Latest Contact Info) Description 05/28/2023 9:30 AM BANDSAW OPERATOR Clinical Communication Virtual Review in [place], [place] [address] [place] [address] 05/30/2023 11:00 AM BANDSAW OPERATOR Appointment Department of Laboratory Medicine and Pathology, [facility], in [place], [place] [address] [place] [address] Soel Read APRN, C.N.P., D.N.P. [address] [place] [phone] 05/30/2023 1:00 PM BANDSAW OPERATOR Office Visit Division of Hematology in [place], [place] [address] [place] [phone] Sole Read APRN, C.N.P., D.N.P. [address] [place] [phone] 06/17/2023 10:30 AM BANDSAW OPERATOR Clinical Communication Virtual Review in [place], [place] [address] [place] [address] 06/18/2023 2:00 PM BANDSAW OPERATOR Office Visit Division of Endocrinology in [address] [phone] Get Ragland APRN, C.N.P., D.N.P. [address] [place] [phone] 06/25/2023 10:30 AM CDT Appointment Department of Laboratory Medicine in [address] [phone] Bárbara Soot APRN, C.N.P. [address] [place] [phone] documented as of this encounter Procedures Procedure Name Priority Date/Time Associated Diagnosis Comments MR HAND LEFT WITHOUT AND WITH IV CONTRAST RAD - Routine (most inpatients and all outpatients) 01/06/2023 4:37 PM CDT Arthritis Psoriatic (HCC) Pain Hand Left documented in this encounter Results * MR Hand Left without and with IV Contrast (01/06/2023 4:37 PM CDT) Anatomical Region Laterality Modality Upper Extremity, Hand, Muscu loskeletal RST LOS, Musculoskeletal ARZ LOS, Muskuloskeletal FLA LOS Left Magne tic Resonance 01/07/2023 5:42 AM CDT Impressions 01/07/2023 5:53 AM CDT 1. Mild degenerative arthritis involving first CMC and STT joints. 2. Arthritic changes involving first MCP joint with associated joint subluxation more likely due to degenerative than inflammatory arthritis, possibly related to an old injury. 3. Tiny focus of cortical irregularity involving a few the carpal bones more likely degenerative than inflammatory in etiology. Narrative 01/07/2023 5:53 AM CDT EXAM: ??MR HAND LEFT WITHOUT AND WITH IV CONTRAST COMPARISON: ??Left wrist radiographs dated 06/06/2021. FINDINGS: ??3T MRI of the left hand and wrist performed according to the inflammatory arthritis protocol with and without IV gadolinium. Degenerative arthritis of the first CMC and STT joints with mild associated synovial enhancement. Mild arthritic changes involving the first MCP joint with tiny cysts or erosions involving the metacarpal head, patchy synovial enhancement and volar subluxation of the proximal phalanx at the MCP joint. There are few tiny T2 hyperintense enhancing foci of cortical irregularity involving the surfaces of a few carpal bones. Patchy synovial enhancement about the triquetrum. Mild tendinopathy of the extensor digitorum and extensor carpi ulnaris tendons with subtle partial-thickness split tear of the ECU tendon. Trace fluid and enhancement involving the flexor tendons of the third finger and to a lesser degree ECU tendon. No significant arthritis involving second through fifth MCP or PIP joints. Small ganglion cyst along the volar aspect of radiocarpal joint. Procedure Note Sylvia Chaudhari M.D. - 01/07/2023 EXAM: MR HAND LEFT WITHOUT AND WITH IV CONTRAST COMPARISON: Left wrist radiographs dated 06/06/2021. FINDINGS: 3T MRI of the left hand and wrist performed according to theinflammatory arthritis protocol with and without IV gadolinium. Degenerative arthritis of the first CMC and STT joints with mildassociated synovial enhancement. Mild arthritic changes involving the first MCP joint with tiny cysts orerosions involving the metacarpal head, patchy synovial enhancement and volar subluxation of theproximal phalanx at the MCP joint. There are few tiny T2 hyperintense enhancing foci of corticalirregularity involving the surfaces of a few carpal bones. Patchy synovial enhancement about thetriquetrum. Mild tendinopathy of the extensor digitorum and extensor carpi ulnaristendons with subtle partial-thickness split tear of the ECU tendon. Trace fluid andenhancement involving the flexor tendons of the third finger and to a lesser degree ECU tendon. Nosignificant arthritis involving second through fifth MCP or PIP joints. Small ganglion cyst along thevolar aspect of radiocarpal joint. IMPRESSION: 1. Mild degenerative arthritis involving first CMC and STT joints. 2. Arthritic changes involving first MCP joint with associated jointsubluxation more likely due to degenerative than inflammatory arthritis, possibly related to an oldinjury. 3. Tiny focus of cortical irregularity involving a few the carpal bonesmore likely degenerative than inflammatory in etiology. Bindu Sawant APRNNMariaa IMG MRI [place] OCEDURES documented in this encounter Visit Diagnoses Diagnosis Arthritis Psoriatic (HCC) Pain Hand Left documented in this encounter Administered Medications Inactive Administered Medications - up to 3 most recent administrations Medication Order MAR Action Action Date Dose Rate Site gadobutrol injection 0.01-30 mL (GADAVIST) 0.01-30 mL, intravenous, Once in imaging, contrast, Starting on Fri01/06/23 at 1552, For 1 dose, Imaging Protocol Orders, Dose per Radiant Medication Guidelines Intrathecal doses greater than 0.25 mL not recommended. Given 01/06/2023 4:27 PM CDT 11 mL sodium chloride (PF) 0.9 % injection 1-100 mL 1-100 mL, intravenous, Once, On Fri01/06/23 at 1615, For 1 dose, Imaging Protocol Orders Given 01/06/2023 4:27 PM CDT 10 mL documented in this encounter Additional Health Concerns Infection Onset Date Last Indicated Resolved Time Protective Environment 07/19/2022 07/19/2022 Assessment Noted Time PHQ-9 Depression Total Score: 0 01/01/20 16 12:53 PM CDT documented as of this encounter Care Teams Legal Editor Relationship Specialty Start Date End Date Elsewhere, Pcp PCP - General Family Medicine 11/27/20 documented as of this encounter
--- OUTSIDE RECORDS SUMMARY | 2023-05-01 16:07 | XMS_ITS | Encounter Summary ---
Author Name Unknown Organization [facility] Address [address] [place] [address] Care Team Providers Care Used Car Make Ready Mechanic Name Role Phone Elsewhere, Pcp Primary Care Provider Unavailabl e Reason for Visit * Reason Comments Med Refill Encounter Details Date Type Department Care Team (Late st Contact Info) Description 03/25/2023 Refill Division of Rheumatology in [place], [place] [address] [place] [phone] Bárbara Soto, JASON, C.N.P. [address] [place] [phone] Med Refill Social History Tobacco Use Types [...] often do you attend chur ch or episcopalian services? Never 07/16/2022 Do you belong to any clubs o r organizations such as yarsanism groups, unions, fraternal or athletic groups, or [...] and heating? Not hard at all 09/19/2022 [facility] - Occupational Stress Questionnaire Answer [...] your living situation today? I have a [facility] place to live 09/19/2022 Education Answer Date Recorded What is the highest level of school you have completed or the highest degree you have received? Master's degree (e.g., MA, MS, Starla, MEd, FLOAT REMOVER, DEBRA) 09/16/2018 Sex and Gender Information Value Date Recorded Sex Assigned at Male 10/08/2017 8:25 AM CDT Gender Identity Male 10/08/2017 8:25 AM CDT Sexual Orientation Straight 10/08/2017 8: 25 AM CDT documented as of this encounter Miscellaneous Notes * Telephone Encounter - Magdalena Frye, R.N. - 03/27/2023 1:37 PM WORK ORDER CLERK Prescription renewal request for methotrexate received from pharmacy. HISTORY OF PRESENT ILLNESS Last Rheum visit: 12/24/22 with Bárbara Soto APRN, CNP Future office visit: ordered, not yet scheduled Last monitoring labs: 03/26/23: results within parameters Prescription request matches current plan of care. Prescription request matches a current prescription in the Medication List. Exclusion criteria: None (If an alert appeared, it was determined to be an approved exception) ASSESSMENT/PLAN Prescription request renewed per nursing protocol. ORDER CLERK documented in this encounter Plan of Treatment Upcoming Encounters Date Type Department Care Team (Latest Contact Info) Description 05/28/2023 9:30 AM WORK ORDER CLERK Clinical Communication Virtual Review in [place], [place] 200 [place] [address] 05/30/2023 11:00 AM WORK ORDER CLERK Appointment Department of Laboratory Medicine and Pathology, [facility] in [place], [place] [address] [place] [phone] Sole Read APRN, C.N.P., D.N.P. [address] [place] [phone] 05/30/2023 1:00 PM WORK ORDER CLERK Office Visit Division of Hematology in [place], [place] [address] [place] [phone] Sole Read APRN, C.N.P., D.N.P. [address] [place] [phone] 06/17/2023 10:30 AM WORK ORDER CLERK Clinical Communication Virtual Review in [place], [place] [address] [place] [address] 06/18/2023 2:00 PM WORK ORDER CLERK Office Visit Division of Endocrinology in [place], [place] [address] [place] [phone] Get Ragland APRN, C.N.P., D.N.P. [address] [place] [phone] 06/25/2023 10:30 AM CDT Appointment Department of Laboratory Medicine in [address] [phone] Bárbara Soto APRN, C.N.P. [address] [place] [phone] documented as of this encounter Visit Diagnoses Diagnosis Arthritis Psoriatic (HCC) documented in this encounter Additional Health Concerns Infection Onset Date Last Indicated Resolved Time Protective Environment 07/19/2022 07/19/2022 Assessment Noted Time PHQ-9 Depression Total Score: 0 01/01/20 16 12:53 PM CDT documented as of this encounter Care Teams Used Car Make Ready Mechanic Relationship Specialty Start Date End Date Elsewhere, Pcp PCP - General Family Medicine 11/27/20 documented as of this encounter
--- OUTSIDE RECORDS SUMMARY | 2023-05-01 16:07 | XMS_ITS | Encounter Summary ---
Author Name Unknown Organization [facility] Address [address] [place] [address] Care Team Providers Care Behavioral Health Clinician Name Role Phone Elsewhere, Pcp Primary Care Provider Unavailabl e Reason for Visit * Reason Comments Med Refill Encounter Details Date Type Department Care Team (Late st Contact Info) Description 12/13/2022 Refill Division of Rheumatology in [place], [place] [address] [place] [address] Bárbara Soto, JASON, C.N.P. [address] [place] [phone] Med Refill Social History Tobacco Use Types [...] often do you attend chur ch or jewish services? Never 07/16/2022 Do you belong to any clubs o r organizations such as shinto groups, unions, fraternal or athletic groups, or [...] at all 09/19/2022 [facility] - Occupational Stress Questionnaire [...] your living situation today? [facility] 09/19/2022 Education Answer Date Recorded What is the highest level of school you have completed or the highest degree you have received? Master's degree (e.g., MA, MS, Starla, MEd, OPERATOR, DEBRA) 09/16/2018 Sex and Gender Information Value Date Recorded Sex Assigned at Male 10/08/2017 8:25 AM CDT Gender Identity Male 10/08/2017 8:25 AM CDT Sexual Orientation Straight 10/08/2017 8: 25 AM CDT documented as of this encounter Miscellaneous Notes * Telephone Encounter - Lacy Taylor, RRebeccaNRebecca - 12/13/2022 10:15 AM CDT Prescription renewal request for methotrexate received from pharmacy. HISTORY OF PRESENT ILLNESS Last Rheum visit: 09/26/2022 with Bárbara Soto APRN, CNP Future office visit: 12/24/2022 Last monitoring labs/eye exam: 11/26/2022: within protocol parameters. Prescription request does not match current plan of care.Patient transitioned to subcutaneous Methotrexate in September 2022. Prescription request matches a current prescription in the Medication List. Exclusion criteria: None ASSESSMENT/PLAN Prescription request denied Patient elected to and transitioned to subcutaneous methotrexate in September 2022 at office visit. documented in this encounter Plan of Treatment Upcoming Encounters Date Type Department Care Team (Latest Contact Info) Description 05/28/2023 9:30 AM TECHNICAL SALES REPRESENTATIVE Clinical Communication Virtual Review in [place], [place] [address] [place] [address] 05/30/2023 11:00 AM TECHNICAL SALES REPRESENTATIVE Appointment Department of Laboratory Medicine and Pathology, [facility] in [place], [place] [address] [place] [phone] Sole Read APRN, C.N.P., D.N.P. [address] [place] [phone] 05/30/2023 1:00 PM TECHNICAL SALES REPRESENTATIVE Office Visit Division of Hematology in [place], [place] [address] [place] [phone] Sole Read APRN, C.N.P., D.N.P. [address] [place] [phone] 06/17/2023 10:30 AM TECHNICAL SALES REPRESENTATIVE Clinical Communication Virtual Review in [place], [place] [address] [place] [address] 06/18/2023 2:00 PM TECHNICAL SALES REPRESENTATIVE Office Visit Division of Endocrinology in [place], [place] [address] [place] [phone] Get Ragland APRN, C.N.P., D.N.P. [address] [place] [phone] 06/25/2023 10:30 AM CDT Appointment Department of Laboratory Medicine in [address] [phone] Bárbara Soto APRN, C.N.P. [address] [place] [phone] documented as of this encounter Visit Diagnoses Diagnosis Arthritis Psoriatic (HCC) documented in this encounter Additional Health Concerns Infection Onset Date Last Indicated Resolved Time Protective Environment 07/19/2022 07/19/2022 Assessment Noted Time PHQ-9 Depression Total Score: 0 01/01/20 16 12:53 PM CDT documented as of this encounter Care Teams Behavioral Health Clinician Relationship Specialty Start Date End Date Elsewhere, Pcp PCP - General Family Medicine 11/27/20 documented as of this encounter
--- OUTSIDE RECORDS SUMMARY | 2023-05-01 16:07 | XMS_ITS | Encounter Summary ---
Author Name Unknown Organization [facility] Address [address] [place] [address] Care Team Providers Care Instructional Technology Specialist Name Role Phone Elsewhere, Pcp Primary Care Provider Unavailabl e Encounter Details Date Type Department Care Team (Latest Contact Info) Description 12/18/2022 9:00 AM CDT - 12/18/2022 11:59 PM CDT Hospital Encounter Department of Laboratory Medicine in [address] [phone] Bárbara Soto, JASON, C.N.P. 200 [place] [phone] Medication Therapy Gas Charger Not Anticoagulant; Arthritis Psoriatic (HCC) Discharge Disposition: [...] often do you attend chur ch or caodaism services? Never 07/16/2022 Do you belong to any clubs o r organizations such as quaker groups, unions, fraternal or athletic groups, or [...] and heating? Not hard at all 09/19/2022 [facility] of Occupat ional Health - Occupational Stress [...] your living situation today? I have a [facility] place to live 09/19/2022 Education Answer Date Recorded What is the highest level of school you have completed or the highest degree you have received? Master's degree (e.g., MA, MS, Starla, MEd, FIELD SERVICES ANALYST, DEBRA) 09/16/2018 Sex and Gender Information Value [...] by mouth daily. 3 01/01/2018 03/18/2023 methotrexate 2.5 mg tabletIndications:Ar thritis Psoriatic (HCC) Take 7 tablets (17.5 mg total) by mouth once a week. Takes on . 84 tablet 3 10/11/2021 12/24/2022 methotrexate 25 mg/mL injectionIndications :Arthritis Psoriatic (HCC) [...] (Latest Contact Info) Description 05/28/2023 9:30 AM HORSE DOCTOR Clinical Communication Virtual Review in [address] [address] 05/30/2023 11:00 AM HORSE DOCTOR Appointment Department of Laboratory Medicine and Pathology, [facility] in [address] [phone] Sole Read APRN, C.N.P., D.N.P. [address] [place] [phone] 05/30/2023 1:00 PM HORSE DOCTOR Office Visit Division of Hematology in [address] [phone] Sole Read APRN, C.N.P., D.N.P. [address] [place] [phone] 06/17/2023 10:30 AM HORSE DOCTOR Clinical Communication Virtual Review in [address] [address] 06/18/2023 2:00 PM HORSE DOCTOR Office Visit Division of Endocrinology in [place], [place] [address] [place] [phone] Get Ragland APRN, C.N.PRebecca, D.N.P. [address] [place] [phone] 06/25/2023 10:30 AM CDT Appointment Department of Laboratory Medicine in [address] [phone] Bárbara Soto APRN, C.N.P. [address] [place] [phone] documented as of this encounter Procedures Procedure Name Priority Date/Time Associated Diagnosis Comments SEDIMENTATION RATE, B Routine 12/18/2022 9:39 AM CDT Arthritis Psoriatic (HCC) CBC WITH DIFFERENTIAL, B Routine 12/18/2022 9:39 AM CDT Medication Therapy Gas Charger Not Anticoagulant C-REACTIVE PROTEIN (CRP), S/P Routine 12/18/2022 9:39 AM CDT Arthritis Psoriatic (HCC) ASPARTATE AMINOTRANSFERASE (AST), S/P Routine 12/18/2022 9:39 AM CDT Medication Therapy Gas Charger Not Anticoagulant CREATININE WITH EGFR, S/P Routine 12/18/2022 9:39 AM CDT Medication Therapy Gas Charger Not Anticoagulant documented in this encounter Results * CRP (C-Reactive Protein) (12/18/2022 9:39 AM CDT) C-Reactive Protein (CRP), P <3.0 <5.0 mg/L 12/18/2022 10:18 AM CDT CNFL Blood (Blood, Venous) 12/18/2022 9:39 AM CDT 12/18/2022 9:40 AM CDT Bárbara Soto APRN, C.N.P. LAB BLOOD ADD-ON [facility] [address] [place] [phone], [facility] CNFL [facility] in [address] [address] * Sedimentation Rate (12/18/2022 9:39 AM CDT) Sedimentation Rate, B 4 0 - 22 mm/1 h 12/18/2022 1:34 PM CDT RDWG Blood (Blood, Venous) 12/18/2022 9:39 AM CDT 12/18/2022 12:56 PM CDT Bárbara Soto APRN, C.N.P. LAB BLOOD ADD-ON [facility] [address] [place] [address], [facility] RDWG [facility] in [address] [phone] * Creatinine with Estimated GFR (12/18/2022 9:39 AM CDT) Creatinine 1.05 0.74 - 1.35 mg/dL 12/18/2022 10:18 AM CDT CNFL Estimated GFR (eGFR) 79 >=60 mL/min/BSA 12/18/2022 10:18 AM CDT [place] Comment: Estimated GFR calculated using the 2020 CKD_EPI creatinine equation. Blood (Blood, Venous) 12/18/2022 9:39 AM CDT 12/18/2022 9:40 AM CDT Bárbara Soto APRN, C.N.P. LAB BLOOD ADD-ON [facility] [address] [place] [address], [place] CNFL [facility] in [address] [address] * AST (Aspartate Aminotransferase) (12/18/2022 9:39 AM CDT) Aspartate Aminotransferase (AST), P 31 8 - 48 U/L 12/18/2022 10:18 AM CDT CNFL Blood (Blood, Venous) 12/18/2022 9:39 AM CDT 12/18/2022 9:40 AM CDT Bindu Sawant APRNN.PRebecca LAB BLOOD ADD-ON [facility] [address] [place] [address], [facility] CNFL [place] [address] * (ABNORMAL) CBC with Differential, Blood (12/18/2022 9:39 AM CDT) Pathologist [facility] Hemoglobin 14.3 13.2 - 16.6 g/dL 12/18/2022 10:27 AM CDT CNFL Hematocrit 42.5 38.3 - 48.6 % 12/18/2022 10:27 AM CDT CNFL Erythrocytes 4.45 4.35 - 5.65 x10(12)/L 12/18/2022 10:27 AM CDT CNFL MCV 95.5 78.2 - 97.9 fL 12/18/2022 10:27 AM CDT CNFL RBC Distrib Width 13.8 11.8 - 14.5 % 12/18/2022 10:27 AM CDT CNFL Platelet Count 109(L) 135 - 317 x10(9)/L 12/18/2022 10:27 AM CDT CNFL Leukocytes 4.1 3.4 - 9.6 x10(9)/L 12/18/2022 10:27 AM CDT CNFL Neutrophils 2.12 1.56 - 6.45 x10(9)/L 12/18/2022 10:27 AM CDT CNFL Lymphocytes 1.37 0.95 - 3.07 x10(9)/L 12/18/2022 10:27 AM CDT CNFL Monocytes 0.41 0.26 - 0.81 x10(9)/L 12/18/2022 10:27 AM CDT CNFL Eosinophils 0.17 0.03 - 0.48 x10(9)/L 12/18/2022 10:27 AM CDT CNFL Basophils <0.04 0.01 - 0.08 x10(9)/L 12/18/2022 10:27 AM CDT CNFL Blood (Blood, Venous) 12/18/2022 9:39 AM CDT 12/18/2022 9:40 AM CDT Bárbara Soto APRN, C.N.P. LAB BLOOD ADD-ON Performing Organization Address City/State/[facility] Co de Phone Number [facility] [address] [place] [address], [facility] CNFL [place] [address] documented in this encounter Visit Diagnoses Diagnosis Medication Therapy Jail Not Anticoagulant Arthritis Psoriatic (HCC) documented in this encounter Additional Health Concerns Infection Onset Date Last Indicated Resolved Time Protective Environment 07/19/2022 07/19/2022 Assessment Noted Time PHQ-9 Depression Total Score: 0 01/01/20 16 12:53 PM CDT documented as of this encounter Care Teams Instructional Technology Specialist Relationship Specialty Start Date End Date Elsewhere, Pcp PCP - General Family Medicine 11/27/20 documented as of this encounter
--- OUTSIDE RECORDS SUMMARY | 2023-05-01 16:07 | XMS_ITS | Encounter Summary ---
Author Name Unknown Organization [facility] Address [address] [place] [address] Care Team Providers Care Tool Builder Name Role Phone Elsewhere, Pcp Primary Care Provider Unavailabl e Reason for Visit * Reason Onset Date Comments Pre-visit Intake 03/18/2023 Encounter Details Date Type Department Care Team (Latest Contact Info) Description 03/18/2023 7:30 AM ELEVATOR OPERATOR SERVICE Clinical Communication Virtual Review in [place], [place] 200 [place], [place] [phone] Pre-visit Intake Social History Tobacco Use Types [...] often do you attend chur ch or denominational services? Never 07/16/2022 Do you belong to any clubs o r organizations such as amish groups, unions, fraternal or athletic groups, or [...] and heating? Not hard at all 09/19/2022 [facility] of Occupat ional Health - Occupational [...] your living situation today? I have a [facility] place to live 09/19/2022 Education Answer Date Recorded What is the highest level of school you have completed or the highest degree you have received? Master's degree (e.g., MA, MS, Starla, MEd, BURIAL VAULT DELIVERER AND INSTALLER, DEBRA) 09/16/2018 Sex and Gender Information Value Date Recorded Sex Assigned at Male 10/08/2017 8:25 AM CDT Gender Identity Male 10/08/2017 8:25 AM CDT Sexual Orientation Straight 10/08/2017 8: 25 AM CDT documented as of this encounter Plan of Treatment Upcoming Encounters Date Type Department Care Team (Latest Contact Info) Description 05/28/2023 9:30 AM ELEVATOR OPERATOR SERVICE Clinical Communication Virtual Review in [place], [place] 200 [place] [address] 05/30/2023 11:00 AM ELEVATOR OPERATOR SERVICE Appointment Department of Laboratory Medicine and Pathology, [facility], in [place], [place] [address] [place] [phone] Sole Read APRN, C.N.P., D.N.P. [address] [place] [phone] 05/30/2023 1:00 PM ELEVATOR OPERATOR SERVICE Office Visit Division of Hematology in [place], [place] [address] [place] [phone] Sole Read APRN, C.N.P., D.N.P. [address] [place] [phone] 06/17/2023 10:30 AM ELEVATOR OPERATOR SERVICE Clinical Communication Virtual Review in [place], [place] 200 [place] [address] 06/18/2023 2:00 PM ELEVATOR OPERATOR SERVICE Office Visit Division of Endocrinology in [place], [place] [address] [place] [phone] Get Ragland APRN, C.N.P., D.N.P. [address] [place] [phone] 06/25/2023 10:30 AM CDT Appointment Department of Laboratory Medicine in [address] [phone] Bárbara Soto APRN, C.N.P. [address] [place] [phone] documented as of this encounter Visit Diagnoses Not on filedocumented in this encounter Additional Health Concerns Infection Onset Date Last Indicated Resolved Time Protective Environment 07/19/2022 07/19/2022 Assessment Noted Time PHQ-9 Depression Total Score: 0 01/01/20 16 12:53 PM CDT documented as of this encounter Care Teams Tool Builder Relationship Specialty Start Date End Date Elsewhere, Pcp PCP - General Family Medicine 11/27/20 documented as of this encounter
--- OUTSIDE RECORDS SUMMARY | 2023-05-01 16:07 | XMS_ITS | Encounter Summary ---
Author Name Unknown Organization [facility] Address [address] [place] [address] Care Team Providers Care Ambulance Assistant Name Role Phone Elsewhere, Pcp Primary Care Provider Unavailabl e Reason for Visit * Reason Onset Date Comments Pre-visit Intake 12/23/2022 Encounter Details Date Type Department Care Team (Latest Contact Info) Description 12/23/2022 9:15 AM CDT Clinical Communication Virtual Review in [place], [place] 200 [place], [place] [address] Pre-visit Intake Social History Tobacco Use Types [...] often do you attend chur ch or religion services? Never 07/16/2022 Do you belong to any clubs o r organizations such as scientology groups, unions, fraternal or athletic groups, or [...] [facility] [place] [facility] - Occupational Stress Questionnaire Answer Date [...] your living situation today? I have a [facility] place to live 09/19/2022 Education Answer Date Recorded What is the highest level of school you have completed or the highest degree you have received? Master's degree (e.g., MA, MS, Starla, MEd, SCOURING MACHINE TENDER, DEBRA) 09/16/2018 Sex and Gender Information Value Date Recorded Sex Assigned at Male 10/08/2017 8:25 AM CDT Gender Identity Male 10/08/2017 8:25 AM CDT Sexual Orientation Straight 10/08/2017 8: 25 AM CDT documented as of this encounter Plan of Treatment Upcoming Encounters Date Type Department Care Team (Latest Contact Info) Description 05/28/2023 9:30 AM DIFFERENTIAL TESTER Clinical Communication Virtual Review in [place], [place] 200 [place] [address] 05/30/2023 11:00 AM DIFFERENTIAL TESTER Appointment Department of Laboratory Medicine and Pathology, [facility], in [place], [place] [address] [place] [phone] Sole Read, JASON, C.N.P., D.N.P. [address] [place] [phone] 05/30/2023 1:00 PM DIFFERENTIAL TESTER Office Visit Division of Hematology in [place], [place] [address] [place] [phone] Sloe Read APRN, C.N.P., D.N.P. [address] [place] [phone] 06/17/2023 10:30 AM DIFFERENTIAL TESTER Clinical Communication Virtual Review in [place], [place] 200 [place] [address] 06/18/2023 2:00 PM DIFFERENTIAL TESTER Office Visit Division of Endocrinology in [place], [place] [address] [place] [phone] Get Ragland APRN, C.N.P., D.N.P. [address] [place] [phone] 06/25/2023 10:30 AM CDT Appointment Department of Laboratory Medicine in [address] [phone] Bárbara Soto APRN, C.N.P. [address] [place] [phone] documented as of this encounter Visit Diagnoses Not on filedocumented in this encounter Additional Health Concerns Infection Onset Date Last Indicated Resolved Time Protective Environment 07/19/2022 07/19/2022 Assessment Noted Time PHQ-9 Depression Total Score: 0 01/01/20 16 12:53 PM CDT documented as of this encounter Care Teams Ambulance Assistant Relationship Specialty Start Date End Date Elsewhere, Pcp PCP - General Family Medicine 11/27/20 documented as of this encounter
--- OUTSIDE RECORDS SUMMARY | 2023-05-01 16:07 | XMS_ITS | Encounter Summary ---
Author Name Unknown Organization [facility] Address 200 [place] [address] Care Team Providers Care Kettle Room Helper Name Role Phone Elsewhere, Pcp Primary Care Provider Unavailabl e Reason for Referral * Outpatient (Routine) - Closed Specialty Diagnoses / Procedures Referred By Contac t Referred To Contact Rheumatology Bárbara Soto APRN, C.N.P. 200 [place] [phone] [facility] Referral ID Status Reason Start Date Expiration Date Visits Re quested Visits Authorized [id number] Closed 12/24/2022 12/23/2025 1 1 * MRI/CAT/PET Scan (Routine) - Closed Specialty Diagnoses / Procedures Referred By Contac t Referred To Contact Radiology Diagnoses Arthritis Psoriatic (HCC) Pain Hand Left Procedures MR Hand Left without and with IV Contrast Bárbara Soto APRN, C.N.P. 200 [place] [phone] [facility] Referral ID Status Reason Start Date Expiration Date Visits Re quested Visits Authorized [id number] Closed 12/24/2022 12/24/2023 1 1 Reason for Visit * Outpatient (Routine) - Closed Specialty Diagnoses / Procedures Referred By Nuvia de le[place] Referred To Contact Rheumatology Bárbara Soto APRN, C.N.PRebecca [address] [place] [phone] [facility] Referral ID Status Reason Start Date Expiration Date Visits Re quested Visits Authorized [id number] Closed 09/26/2022 09/25/2025 1 1 Encounter Details Date Type Department Care Team (Latest Contact Info) Description 12/24/2022 11:15 AM CDT Office Visit Division of Rheumatology in [place], [place] [address] [place] [phone] Bárbara Soto APRN, C.N.P. [address] [place] [phone] Arthritis Psoriatic (HCC) (Primary Dx); Pain Hand Left; High Risk Medication Social History Tobacco Use [...] often do you attend chur ch or rastafari services? Never 07/16/2022 Do you belong to [...] [facility] of Occupat ional Health - [...] living situation today? I have a [facility] place to live 09/19/2022 Education Answer Date Recorded What is the highest level of school you have completed or the highest degree you have received? Master's degree (e.g., MA, MS, Starla, MEd, FLY FINISHER, DEBRA) 09/16/2018 Sex and Gender Information Value Date Recorded Sex Assigned at Male 10/08/2017 8:25 AM CDT Gender Identity Male 10/08/2017 8:25 AM CDT Sexual Orientation Straight 10/08/2017 8: 25 AM CDT documented as of this encounter Progress Notes * Bárbara Soto, JASON, C.N.P. - 12/24/2022 11:15 AM CDT Images from the original note were not included. SUBJECTIVE CHIEF COMPLAINT / REASON FOR VISIT Get Ovalles is a 67 y.o. male who presents as an established patient for follow up of psoriatic arthritis. HISTORY OF PRESENT ILLNESS Mr. Get Ovalles is a 67-year-old male with psoriatic arthritis since 2006. He [...] Ovalles for follow-up of his psoriatic arthritis. He continues to struggle with daily tasks and pain management. He tried to paint a barn for 4 hours and had a flare for a week from her fingers to forearm afterwards. He continues to have decreased fine motor skills and decreased ep specialist strength. He is not noticed any improvement in joint symptoms since switching to subcu methotrexate. He is having pain to his left third and fourth fingers. He continues to deal with triggering and cramping in his fingers with increased fine motor skills. He states that overall his chronicpain has worsened since I saw him last. He is not had any major flares since I saw him last. He saw Hematology on November 27, 2022 for follow-up of his Hodgkin's lymphoma, which remains in remission. His last Simponi Aria infusion was December 05, 2022 in his next one is January 31, 2023. He continuesto take Simponi Aria 2 mg/kilogram IV infusion every 8 weeks, methotrexate 17.5 mg SQ once weekly, folic acid 1 mg daily, and Celebrex 100 mg twice a day. He denies any adverse side effects to medications. Rheumatoid Arthritis AM stiffness: 2 hours Current Symptoms: dry eyes (using drops as needed), dry mouth (a little bit), fatigue (worsening inthe last 2-3 weeks), rash (itchy ring on right posterior thigh) and dyspnea (activity) Current Symptoms: no fever, no weight loss, no excessive bruising, no cough, no chest pain, no edema, no nausea, no vomiting, no abdominal pain, no anorexia, no chills, no night sweats, no oral ulcers (tons with chemo), no eye inflammation, no heartburn (prevacid- rarely) and no subcutaneous nodules Previous Reports Reviewed:lab reports and office notes The following portions of the patient's history were reviewed and updated as appropriate: family history, medical history, social history, surgical history and problem list. REVIEW OF SYSTEMS Pertinent positives and negatives as documented in the above history of present illness. Constitutional: Positive for fatigue (worsening in the last 2-3 weeks) and weight gain of more than10 pounds. - Negative for chills, fever, night sweats and weight loss. Skin: Positive for skin rash (itchy ring on right posterior thigh). ENT: Positive for difficulty hearing and persistent [...] deformities in bilateral thumbs. Lab: CBC with differential: Platelets 109. Creatinine, GFR, and AST all within normal limits. 06/06/2021 10/11/2021 09/26/2022 12/24/2022 Tender joint count (0-28) 2 2 10 6 Swollen joint count (0-28) 0 0 8 2 Patient global assessment (0-100) 36 51 36 56 Wet Inspector Optical Glass global assessment (0-100) 35 40 50 40 ESR (mm/h) 9 1 -- 4 CRP (mg/L) 3 3 -- 3 Disease Activity Score 28 using ESR ([id number]) 2.83 1.51 -- 3.52 Disease Activity Score 28 using CRP ([id number]) 2.76 2.97 -- 4.01 Clinical Disease Activity Index (CDAI) 9.1 11.1 26.6 17.6 Simplified Disease Activity Index (SDAI) 9.4 11.4 -- 17.9 ASSESSMENT / PLAN #1 Arthritis Psoriatic (HCC) #2 Left hand pain We had a lengthy discussion about his current joint symptoms. He is having increased pain and debility in bilateral wrists, fingers, and ankles. He is not had any major flares since I saw him last. His inflammatory markers are normal today. His last Simponi Aria infusion was December 05, 2022. We need to determine if he has smoldering disease to make a med change as he has been on numerous biologics. I have ordered a left hand MRI with contrast to be done at his convenience. If he does have active synovitis or tenosynovitis noted on MRI then we can transition him to Tremfya. He unfortunately has not noticed a huge improvement since switching to subcu methotrexate. For now he will continue Simp ирина Aria 2 mg/kilogram IV infusion every 8 weeks, methotrexate 17 mg subq once weekly, folic acid 1mg daily, and Celebrex 100 mg twice daily. #3 High-risk medication He will continue laboratory monitoring every 3 months for methotrexate. I will follow up with him in 3 months I answered the patients questions to the best of my ability. The patient seemed pleased with our interaction. If he should have any additional questions or concerns. I have asked that he contact us at that time. [place] documented in this encounter Plan of Treatment Upcoming Encounters Date Type Department Care Team (Latest Contact Info) Description 05/28/2023 9:30 AM PLASTIC CUTTER Clinical Communication Virtual Review in [address] [address] 05/30/2023 11:00 AM PLASTIC CUTTER Appointment Department of Laboratory Medicine and Pathology, [facility], in [address] [phone] Soel Read APRN, C.N.P., D.N.P. [address] [place] [phone] 05/30/2023 1:00 PM PLASTIC CUTTER Office Visit Division of Hematology in [address] [phone] Sole Read APRN, C.N.P., D.N.P. [address] [place] [phone] 06/17/2023 10:30 AM PLASTIC CUTTER Clinical Communication Virtual Review in [place], [place] 200 [place] [address] 06/18/2023 2:00 PM PLASTIC CUTTER Office Visit Division of Endocrinology in [place], [place] [address] [place] [phone] Get Ragland APRN, C.N.P., D.N.P. [address] [place] [phone] 06/25/2023 10:30 AM CDT Appointment Department of Laboratory Medicine in [address] [phone] Bárbara Soto APRN, C.N.P. [address] [place] [phone] Scheduled Referrals Name Type Priority Associated Diagnoses Order Schedule Rheumatology office visit (clinic) Outpatient Referral Routine Expected: 03/25/2023 (Approximate), Expires: 03/25/2024 documented as of this encounter Results * CRP (C-Reactive Protein) (03/26/2023 9:31 AM PLASTIC CUTTER) C-Reactive Protein (CRP), P <3.0 <5.0 mg/L 03/26/2023 9:50 AM PLASTIC CUTTER CNFL Blood (Blood, Venous) 03/26/2023 9:31 AM PLASTIC CUTTER 03/26/2023 9:32 AM PLASTIC CUTTER Bárbara Soto APRN, C.N.P. LAB BLOOD ADD-ON [facility] [address] [place] [address], [place] [address], [place] CNFL [facility] in [address] [place] [address] * Sedimentation Rate (03/26/2023 9:31 AM PLASTIC CUTTER) Sedimentation Rate, B 11 0 - 22 mm/1 h 03/26/2023 1:09 PM PLASTIC CUTTER RDWG Blood (Blood, Venous) 03/26/2023 9:31 AM PLASTIC CUTTER 03/26/2023 12:23 PM PLASTIC CUTTER Bindu Sawant APRNNRebeccaPRebecca LAB BLOOD ADD-ON [facility] [address] [place] [address], [facility] RDWG [facility] in [place] [address] [place] [phone] * MR Hand Left without and with [...] bonesmore likely degenerative than inflammatory in etiology. Bárbara Soto APRN, C.N.P. IMG MRI RI OCEDURES documented in this encounter Visit Diagnoses Diagnosis Arthritis Psoriatic (HCC)- Primary Pain Hand Left High Risk Medication Arthritis Psoriatic (HCC) Pain Hand Left documented in this encounter Additional Health Concerns Infection Onset Date Last Indicated Resolved Time Protective Environment 07/19/2022 07/19/2022 Assessment Noted Time PHQ-9 Depression Total Score: 0 01/01/20 16 12:53 PM CDT documented as of this encounter Care Teams Kettle Room Helper Relationship Specialty Start Date End Date Elsewhere, Pcp PCP - General Family Medicine 11/27/20 documented as of this encounter
--- OUTSIDE RECORDS SUMMARY | 2023-05-01 16:08 | XMS_ITS | Encounter Summary ---
Author Name Unknown Organization [facility] Address [address] [place] [address] Care Team Providers Care Telephone Exchange Operator Name Role Phone Elsewhere, Pcp Primary Care Provider Unavailabl e Reason for Visit * Reason Comments Outpatient Infusion * Episode Based Medications (Routine) - Authorized Specialty Diagnoses / Procedures Referred By Contac t Referred To Contact Diagnoses Arthritis Psoriatic (HCC) Bárbara Soto APRN, C.N.P. [address] [place] [phone] [place] [address] [place] [phone] Referral ID Status Reason Start Date Expiration Date V isits Requested Visits Authorized [id number] Authorized 11/14/2022 11/13/2024 99 99 Encounter Details Date Type Department Care Team (Late st Contact Info) Description 12/05/2022 10:30 AM CDT Infusion Department of Infusion Therapy in [address] [phone] Bárbara Soto APRN, C.N.P. [address] [place] [phone] Arthritis Psoriatic (HCC) (Primary Dx) Social History [...] often do you attend chur ch or quaker services? Never 07/16/2022 Do you belong to any clubs o r organizations such as alevism groups, unions, fraternal or athletic groups, or [...] and heating? Not hard at all 09/19/2022 [facility] of Occupat ional Health - [...] living situation today? I have a [facility] place to live 09/19/2022 Education Answer Date Recorded What is the highest level of school you have completed or the highest degree you have received? Master's degree (e.g., MA, MS, Starla, MEd, OBIEE CONSULTANT, DEBRA) 09/16/2018 Sex and Gender Information Value Date Recorded Sex Assigned at Male 10/08/2017 8:25 AM CDT Gender Identity Male 10/08/2017 8:25 AM CDT Sexual Orientation Straight 10/08/2017 8: 25 AM CDT documented as of this encounter Last Filed Vital Signs Vital Sign Reading Time Taken Comments Blood Pressure 135/81 12/05/2022 11:37 AM CDT Pulse 67 12/05/2022 11:37 AM CDT Temperature 36.2 ??C (97.2 ??F) 12/05/2022 10:55 AM C DT Respiratory Rate 18 12/05/2022 11:37 AM CDT Oxygen Saturation 96% 12/05/2022 10:55 AM CDT Inhaled Oxygen Concentration - - Weight - - Height - - Body Mass Index - - documented in this encounter Plan of Treatment Upcoming Encounters Date Type Department Care Team (Latest Contact Info) Description 05/28/2023 9:30 AM BRIDGE IRONWORKER HELPER Clinical Communication Virtual Review in [address] [address] 05/30/2023 11:00 AM BRIDGE IRONWORKER HELPER Appointment Department of Laboratory Medicine and Pathology, [facility], in [address] [phone] Sole Read APRN, C.N.P., D.N.P. [address] [place] [phone] 05/30/2023 1:00 PM BRIDGE IRONWORKER HELPER Office Visit Division of Hematology in [address] [phone] Sole Read APRN, C.N.P., D.N.P. [address] [place] [phone] 06/17/2023 10:30 AM BRIDGE IRONWORKER HELPER Clinical Communication Virtual Review in [address] [address] 06/18/2023 2:00 PM BRIDGE IRONWORKER HELPER Office Visit Division of Endocrinology in [address] [phone] Get Ragland APRN, C.N.P., D.N.P. [address] [place] [phone] 06/25/2023 10:30 AM CDT Appointment Department of Laboratory Medicine in [address] [phone] Bárbara Soto APRN, C.N.P. [address] [place] [address] documented as of this encounter Visit Diagnoses Diagnosis Arthritis Psoriatic (HCC)- Primary documented in this encounter Administered Medications Inactive Administered Medications - up to 3 most recent administrations Medication Order MAR Action Action Date Dose Rate Site golimumab 218.75 mg in NaCl 0.9% IVPB (SIMPONI ARIA) 218.75 mg (rounded from 220 mg = 2 mg/kg ? 110 kg), intravenous, at 200 mL/hr, Administer over 30 Minutes, Once, On Azeb 12/05/22 at 1045, For 1 dose, Do NOT shake. Use in-line filter. Do NOT refrigerate. New Bag 12/05/2022 10:59 AM CDT 218.75 mg 200 mL/hr NaCl 0.9 % bolus 50 mL 50 mL, intravenous, at 50 mL/hr, Administer over 1 Hours, Once, On Azeb 12/05/22 at 1045, For 1 dose New Bag 12/05/2022 11:29 AM CDT 50 mL 50 mL/hr sodium chloride 0.9 % injection 10 mL 10 mL, intravenous, As needed, line care, Starting on Azeb 12/05/22 at 1019 Given 12/05/2022 10:59 AM CDT 10 mL documented in this encounter Additional Health Concerns Infection Onset Date Last Indicated Resolved Time Protective Environment 07/19/2022 07/19/2022 Assessment Noted Time PHQ-9 Depression Total Score: 0 01/01/20 16 12:53 PM CDT documented as of this encounter Care Teams Telephone Exchange Operator Relationship Specialty Start Date End Date Elsewhere, Pcp PCP - General Family Medicine 11/27/20 documented as of this encounter
--- OUTSIDE RECORDS SUMMARY | 2023-05-01 16:08 | XMS_ITS | Encounter Summary ---
Author Name Unknown Organization [facility] Address [address] [place] [address] Care Team Providers Care Ventilation Equipment Tender Name Role Phone Elsewhere, Pcp Primary Care Provider Unavailabl e Reason for Referral * MRI/CAT/PET Scan (Routine) - Closed Specialty Diagnoses / Procedures Referred By Nuvia t Referred To Contact Radiology Diagnoses Hodgkin Lymphoma Unspecified Lymph Nodes Of Axilla And Upper Limb (HCC) Procedures CT Abdomen Pelvis with IV Contrast Sole Read APRN, C.N.P., D.N.P. 200 [place] [address] [facility] Referral ID Status Reason Start Date Expiration Date Visits Re quested Visits Authorized [id number] Closed 07/22/2022 07/22/2023 1 1 * MRI/CAT/PET Scan (Routine) - Closed Specialty Diagnoses / Procedures Referred By Contac t Referred To Contact Radiology Diagnoses Hodgkin Lymphoma Unspecified Lymph Nodes Of Axilla And Upper Limb (HCC) Procedures CT Chest with IV Contrast Sole Read APRN, C.N.P., D.N.P. 200 [place] [phone] [facility] Referral ID Status Reason Start Date Expiration Date Visits Re quested Visits Authorized [id number] Closed 07/22/2022 07/22/2023 1 1 Reason for Visit * MRI/CAT/PET Scan (Routine) - Closed Specialty Diagnoses / Procedures Referred By Nuvia de leon Referred To Contact Radiology Diagnoses Hodgkin Lymphoma Unspecified Lymph Nodes Of Axilla And Upper Limb (HCC) Procedures CT Abdomen Pelvis with IV Contrast Sole Read APRN, C.N.P., D.N.P. [address] [place] [phone] [facility] Referral ID Status Reason Start Date Expiration Date Visits Re quested Visits Authorized [id number] Closed 07/22/2022 07/22/2023 1 1 Encounter Details Date Type Department Care Team (Latest Contact Info) Description 11/26/2022 9:36 AM CDT - 11/26/2022 11:59 PM CDT Hospital Encounter Department of Radiology, [facility], in [place], [place] [address] [place] [phone] Sole Read APRN, C.N.P., D.N.P. [address] [place] [phone] Hodgkin Lymphoma Unspecified Lymph Nodes Of Axilla And Upper Limb (HCC) Discharge Disposition: Home or Self Care [...] How often do you attend chur or yazidism services? Never 07/16/2022 Do you belong to any clubs o r organizations such as orthodox groups, unions, fraternal or athletic groups, or [...] and heating? Not hard at all 09/19/2022 [facility] of Occupat ional Health - Occupational Stress [...] your living situation today? I have a [facility] place to live 09/19/2022 Education Answer Date Recorded What is the highest level of school you have completed or the highest degree you have received? Master's degree (e.g., MA, MS, Starla, MEd, INTEGRITY DIRECTOR, DEBRA) 09/16/2018 Sex and Gender Information Value [...] Contact Info) Description 05/28/2023 9:30 AM CLOTH DESIZING RANGE TENDER Clinical Communication Virtual Review in [address] [address] 05/30/2023 11:00 AM CLOTH DESIZING RANGE TENDER Appointment Department of Laboratory Medicine and Pathology, [facility] in [place], [place] [address] [place] [phone] Sole Read APRN, C.N.P., D.N.P. [address] [place] [phone] 05/30/2023 1:00 PM CLOTH DESIZING RANGE TENDER Office Visit Division of Hematology in [place], [place] [address] [place] [phone] Sole Read APRN, C.N.P., D.N.P. [address] [place] [phone] 06/17/2023 10:30 AM CLOTH DESIZING RANGE TENDER Clinical Communication Virtual Review in [address] [address] 06/18/2023 2:00 PM CLOTH DESIZING RANGE TENDER Office Visit Division of Endocrinology in [place], [place] [address] [place] [phone] Get Ragland APRN, C.N.P., D.N.P. [address] [place] [phone] 06/25/2023 10:30 AM CDT Appointment Department of Laboratory Medicine in [address] [phone] Bárbara Soto APRN, C.N.P. [address] [place] [phone] Scheduled Orders Name Type Priority Associated Diagnoses Orde r Schedule Creatinine, POCT Point of Care Testing-Docked Device Routine Routine lab collecti on (next collection) for 1 Occurrences starting 11/26/2022 until 11/26/2022 documented as of this encounter Procedures Procedure Name Priority Date/Time Associated Diagnosis Comments CT ABDOMEN PELVIS WITH IV CONTRAST RAD - Routine (most inpatients and all outpatients) 11/26/2022 11:00 AM CDT Hodgkin Lymphoma Unspecified Lymph Nodes Of Axilla And Upper Limb (HCC) CT CHEST WITH IV CONTRAST RAD - Routine (most inpatients and all outpatients) 11/26/2022 11:00 AM CDT Hodgkin Lymphoma Unspecified Lymph Nodes Of Axilla And Upper Limb (HCC) CREATININE, POCT, B Routine 11/26/2022 10:00 AM CDT CREATININE, POCT, B Routine 11/26/2022 10:00 AM CDT documented in this encounter Results * CT Abdomen Pelvis with IV Contrast (11/26/2022 11:00 AM CDT) Anatomical Region Laterality Modality Abdomen, Pelvis, Abdominal R ST LOS, Abdominal ARZ LOS, Abdominal FLA LOS N/A Computed Tomograp hy, Computed Tomography 11/26/2022 10:4 1 AM CDT Impressions 11/26/2022 11:[address] evidence of recurrent lymphoma in the abdomen or pelvis. Narrative 11/26/2022 11:08 AM CDT EXAM: ??CT ABDOMEN PELVIS WITH IV CONTRAST COMPARISON: ??PET CT 12/05/2021 FINDINGS: ??No adenopathy in the abdomen or pelvis. Spleen size remains within normal limits. Stable 4.4 cm fluid collection anterior to the midline ventral hernia mesh, presumed seroma. Partially visualized descending thoracic aortic endograft. Right renal cyst. Postoperative changes of the sigmoid colon. Bilateral L5 pars defects. Procedure Note Melania Bowen M.D. - 11/26/2022 EXAM: CT ABDOMEN PELVIS WITH IV CONTRAST COMPARISON: PET CT 12/05/2021 FINDINGS: No adenopathy in the abdomen or pelvis. Spleen size remainswithin normal limits. Stable 4.4 cm fluid collection anterior to the midline ventral herniamesh, presumed seroma. Partially visualized descending thoracic aortic endograft. Right renalcyst. Postoperative changes of the sigmoid colon. Bilateral L5 pars defects. IMPRESSION: No CT evidence of recurrent lymphoma in the abdomen or pelvis. Sole Read APRN, C.N.P., D.N.P. IMG CT PROCEDURES * CT Chest with IV Contrast (11/26/2022 11:00 AM CDT) Anatomical Region Laterality Modality Chest, Thoracic RST LOS, Tho racic ARZ LOS, Thoracic ARZ LOS, Thoracic FLA LOS N/A Computed Tomography, Compute d Tomography 11/26/2022 10:4 2 AM CDT Impressions 11/26/2022 2:14 PM CDT 1. No thoracic lymphadenopathy. 2. Grossly stable dilatation of the aortic root on this non-gated exam. Narrative 11/26/2022 2:14 PM CDT EXAM: CT CHEST WITH IV CONTRAST COMPARISON: CT chest with IV contrast enhancement 08/19/2022. FINDINGS: ??Sternotomy. AVR. Repair of the ascending aorta. Stent graft descending thoracic aorta. Stable dilation of the aortic root between the AVR and the repair, measuring about 49 mm. Surgical clips right axilla. No thoracic lymphadenopathy. Right axillary lymphadenopathy has resolved or been resected since 09/08/2020. Mild scarring in the lung bases. Eventration right hemidiaphragm. This examination was performed in conjunction with a CT of the abdomen, which will be reported separately. Procedure Note Umang Cam M.D. - 11/26/2022 EXAM: CT CHEST WITH IV CONTRAST COMPARISON: CT chest with IV contrast enhancement 08/19/2022. FINDINGS: Sternotomy. AVR. Repair of the ascending aorta. Stent graftdescending thoracic aorta. Stable dilation of the aortic root between the AVR and the repair,measuring about 49 mm. Surgical clips right axilla. No thoracic lymphadenopathy. Right axillarylymphadenopathy has resolved or been resected since 09/08/2020. Mild scarring in the lung bases. Eventration right hemidiaphragm. This examination was performed in conjunction with a CT of the abdomen,which will be reported separately. IMPRESSION: 1. No thoracic lymphadenopathy. 2. Grossly stable dilatation of the aortic root on this non-gated exam. Sole Read APRN, C.N.P., D.N.P. IMG CT PROCEDURES * Creatinine, POCT (11/26/2022 10:00 AM CDT) [facility] Creatinine, POCT, B 1.2 0.7 - 1.4 mg/dL 11/26/2022 10:13 AM CDT PCDT Comment: ----ADDITIONAL INFORMATION---- Performed at the Point of Care Blood 11/26/2022 10:0 0 AM CDT 11/26/2022 10:13 AM CDT Unknown Provider LAB POCT ORDERABLES - DEVICE [facility] PERFORMING LABS [address] [place] [address], [facility] PCDT [facility] POC [address] [place] [address] * Creatinine, POCT (11/26/2022 10:00 AM CDT) [facility] Estimated GFR (eGFR), POCT 67 >=60 mL/min/BSA 11/26/2022 10:14 AM CDT PCDT Comment: Estimated GFR calculated using the 2020 CKD_EPI creatinine equation. Blood 11/26/2022 10:0 0 AM CDT 11/26/2022 10:13 AM CDT Unknown Provider LAB POCT ORDERABLES - DEVICE [facility] [address] [place] [address], [facility] PCDT [facility] P[facility] [address] [place] [address] documented in this encounter Visit Diagnoses Diagnosis Hodgkin Lymphoma Unspecified Lymph Nodes Of Axilla And Upper Limb (HCC) documented in this encounter Administered Medications Inactive Administered Medications - up to 3 most recent administrations Medication Order MAR Action Action Date Dose Rate Site iopromide 370 mg iodine/mL injection 1-162 mL (ULTRAVIST) 1-162 mL, intravenous, Once in imaging, contrast, Starting on Fri11/26/22 at 0956, For 1 dose, Imaging Protocol Orders, Dose per Radiant Medication Guidelines Given 11/26/2022 10:29 AM CDT 115 mL sodium chloride (PF) 0.9 % injection 1-100 mL 1-100 mL, intravenous, Once, On Fri11/26/22 at 1015, For 1 dose, Imaging Protocol Orders Given 11/26/2022 10:30 AM CDT 50 mL documented in this encounter Additional Health Concerns Infection Onset Date Last Indicated Resolved Time Protective Environment 07/19/2022 07/19/2022 Assessment Noted Time PHQ-9 Depression Total Score: 0 01/01/20 16 12:53 PM CDT documented as of this encounter Care Teams Ventilation Equipment Tender Relationship Specialty Start Date End Date Elsewhere, Pcp PCP - General Family Medicine 11/27/20 documented as of this encounter
--- OUTSIDE RECORDS SUMMARY | 2023-05-01 16:08 | XMS_ITS | Encounter Summary ---
Author Name Unknown Organization [facility] Address [address] [place] [address] Care Team Providers Care Water Main Pipe Layer Name Role Phone Elsewhere, Pcp Primary Care Provider Unavailabl e Encounter Details Date Type Department Care Team (Latest Contact Info) Description 11/25/2022 12:45 PM CDT Clinical Communication Virtual Review in [place], [place] [address] [place] [address] Social History Tobacco Use Types Packs/Day Years [...] often do you attend chur ch or protestant services? Never 07/16/2022 Do you belong to any clubs o r organizations such as gnosticist groups, unions, fraternal or athletic groups, or [...] and heating? Not hard at all 09/19/2022 [facility] [place] of Occupat ional Health - Occupational Stress [...] your living situation today? I have a [facility] place to live 09/19/2022 Education Answer Date Recorded What is the highest level of school you have completed or the highest degree you have received? Master's degree (e.g., MA, MS, Starla, MEd, OUTREACH PROFESSIONAL, DEBRA) 09/16/2018 Sex and Gender Information Value Date Recorded Sex Assigned at Male 10/08/2017 8:25 AM CDT Gender Identity Male 10/08/2017 8:25 AM CDT Sexual Orientation Straight 10/08/2017 8: 25 AM CDT documented as of this encounter Plan of Treatment Upcoming Encounters Date Type Department Care Team (Latest Contact Info) Description 05/28/2023 9:30 AM PARK ATTENDANT Clinical Communication Virtual Review in [place], [place] 200 [place] [address] 05/30/2023 11:00 AM PARK ATTENDANT Appointment Department of Laboratory Medicine and Pathology, [facility], in [place], [place] [address] [place] [phone] Sole Read APRN, C.N.P., D.N.P. [address] [place] [phone] 05/30/2023 1:00 PM PARK ATTENDANT Office Visit Division of Hematology in [place], [place] [address] [place] [phone] Sole Read APRN, C.N.P., D.N.P. [address] [place] [phone] 06/17/2023 10:30 AM PARK ATTENDANT Clinical Communication Virtual Review in [place], [place] 200 [place] [address] 06/18/2023 2:00 PM PARK ATTENDANT Office Visit Division of Endocrinology in [place], [place] [address] [place] [phone] Get Ragland APRN, C.N.P., D.N.P. [address] [place] [phone] 06/25/2023 10:30 AM CDT Appointment Department of Laboratory Medicine in [address] [phone] Bárbara Soto APRN, C.N.P. [address] [place] [phone] documented as of this encounter Visit Diagnoses Not on filedocumented in this encounter Additional Health Concerns Infection Onset Date Last Indicated Resolved Time Protective Environment 07/19/2022 07/19/2022 Assessment Noted Time PHQ-9 Depression Total Score: 0 01/01/20 16 12:53 PM CDT documented as of this encounter Care Teams Water Main Pipe Layer Relationship Specialty Start Date End Date Elsewhere, Pcp PCP - General Family Medicine 11/27/20 documented as of this encounter
--- OUTSIDE RECORDS SUMMARY | 2023-05-01 16:08 | XMS_ITS | Encounter Summary ---
Author Name Unknown Organization [facility] Address [address] [place] [address] Care Team Providers Care Clam Grader Name Role Phone Elsewhere, Pcp Primary Care Provider Unavailabl e Reason for Visit * Reason Comments Lab Monitoring Encounter Details Date Type Department Care Team (Late st Contact Info) Description 09/19/2022 Documentation Division of Rheumatology in [place], [place] [address] [place] [address] Magdalena Frye R.N. [address] [place] [phone] Lab Monitoring Social History Tobacco Use Types Packs/Day Years [...] often do you attend chur ch or yarsanism services? Never 07/16/2022 Do you belong to any clubs o r organizations such as confucianism groups, unions, fraternal or athletic groups, or [...] and heating? Not hard at all 09/19/2022 [facility] of Occupat ionnm Health - Occupational Stress Questionnaire Answer Date [...] your living situation today? I have a [facility] place to live 09/19/2022 Education Answer Date Recorded What is the highest level of school you have completed or the highest degree you have received? Master's degree (e.g., MA, MS, Starla, MEd, HARDSCAPE FOREMAN, DEBRA) 09/16/2018 Sex and Gender Information Value Date Recorded Sex Assigned at Male 10/08/2017 8:25 AM CDT Gender Identity Male 10/08/2017 8:25 AM CDT Sexual Orientation Straight 10/08/2017 8: 25 AM CDT documented as of this encounter Progress Notes * Magdalena Frye R.N. - 09/19/2022 2:07 PM CDT Documentation note only, patient not contacted ASSESSMENT Rheumatology monitoring labs completed on 09/18/22 for methotrexate monitoring were reviewed per provider [...] (Latest Contact Info) Description 05/28/2023 9:30 AM VEHICLE CHECK IN CLERK Clinical Communication Virtual Review in [place], [place] 200 [place] [address] 05/30/2023 11:00 AM VEHICLE CHECK IN CLERK Appointment Department of Laboratory Medicine and Pathology, [facility] in [place], [place] [address] [place] [phone] Sole Read APRN, C.N.P., D.N.P. [address] [place] [phone] 05/30/2023 1:00 PM VEHICLE CHECK IN CLERK Office Visit Division of Hematology in [place], [place] [address] [place] [phone] Sole Read APRN, C.N.P., D.N.P. [address] [place] [phone] 06/17/2023 10:30 AM VEHICLE CHECK IN CLERK Clinical Communication Virtual Review in [place], [place] 200 [place] [address] 06/18/2023 2:00 PM VEHICLE CHECK IN CLERK Office Visit Division of Endocrinology in [address] [phone] Get Ragland APRN, C.N.P., D.N.P. [address] [place] [phone] 06/25/2023 10:30 AM CDT Appointment Department of Laboratory Medicine in [address] [phone] Bárbara Soto APRN, C.N.P. [address] [place] [phone] documented as of this encounter Results * Creatinine with Estimated GFR (12/18/2022 9:39 AM CDT) Creatinine 1.05 0.74 - 1.35 mg/dL 12/18/2022 10:18 AM CDT CNFL Estimated GFR (eGFR) 79 >=60 mL/min/BSA 12/18/2022 10:18 AM CDT CNFL Comment: Estimated GFR calculated using the 2020 CKD_EPI creatinine equation. Blood (Blood, Venous) 12/18/2022 9:39 AM CDT 12/18/2022 9:40 AM CDT Bárbara Soto APRN, C.N.P. LAB BLOOD ADD-ON Performing Organization Address City/[facility]/[place] [address], [place] [address] * AST (Aspartate Aminotransferase) (12/18/2022 9:39 AM CDT) Pathologist [facility] Aspartate Aminotransferase (AST), P 31 8 - 48 U/L 12/18/2022 10:18 AM CDT [facility] Blood (Blood, Venous) 12/18/2022 9:39 AM CDT 12/18/2022 9:40 AM CDT Bárbara Soto APRN, C.N.P. LAB BLOOD ADD-ON Performing Organization Address City/[facility]/[place] [address], [place] [address] * (ABNORMAL) CBC with Differential, Blood (12/18/2022 9:39 AM CDT) Hemoglobin 14.3 13.2 - 16.6 g/dL 12/18/2022 [...] CDT 12/18/2022 9:40 AM CDT Bárbara Soto APRN C.N.P. LAB BLOOD ADD-ON Performing Organization Address City/State/[facility] Co de Phone Number [facility] [address] [place] [phone], [facility] CNFL [facility] in [address] [address] documented in this encounter Visit Diagnoses Diagnosis Medication Therapy Necktie Maker Not Anticoagulant- Primary documented in this encounter Additional Health Concerns Infection Onset Date Last Indicated Resolved Time Protective Environment 07/19/2022 07/19/2022 Assessment Noted Time PHQ-9 Depression Total Score: 0 01/01/20 16 12:53 PM CDT documented as of this encounter Care Teams Clam Grader Relationship Specialty Start Date End Date Elsewhere, Pcp PCP - General Family Medicine 11/27/20 documented as of this encounter
--- OUTSIDE RECORDS SUMMARY | 2023-05-01 16:08 | XMS_ITS | Encounter Summary ---
Author Name Unknown Organization [facility] Address [address] [place] [address] Care Team Providers Care Social Services Analyst Name Role Phone Elsewhere, Pcp Primary Care Provider Unavailabl e Reason for Referral * Outpatient (Routine) - Closed Specialty Diagnoses / Procedures Referred By Nuvia de leon Referred To Contact Endocrinology Diagnoses Obesity Body Mass Index 30-39.9 Adult Sleep Apnea Hypertension Essential Primary Get Ragland APRN, C.N.P., D.N.P. [address] [place] [phone] [facility] Referral ID Status Reason Start Date Expiration Date Visits Re quested Visits Authorized [id number] Closed 11/28/2022 11/27/2025 1 1 Reason for Visit * Outpatient (Routine) - Closed Specialty Diagnoses / Procedures Referred By Nuvia de leon Referred To Contact Endocrinology Diagnoses Obesity Body Mass Index 30-39.9 Adult Sleep Apnea Hypertension Essential Primary Get Ragland APRN, C.N.P., D.N.P. [address] [place] [address] [facility] Referral ID Status Reason Start Date Expiration Date Visits Re quested Visits Authorized [id number] Closed 09/05/2022 09/04/2025 1 1 Encounter Details Date Type Department Care Team (Latest Contact Info) Description 11/28/2022 10:00 AM CDT Telemedicine Division of Endocrinology in [place], [place] [address] [place] [address] Get Ragland APRN, C.N.P., D.N.P. [address] [place] [address] Obesity Body Mass Index 30-39.9 Adult; Sleep Apnea; Hypertension Essential Primary Social History [...] often do you attend chur ch or yarsani services? Never 07/16/2022 Do you belong to any clubs o r organizations such as episcopalian groups, unions, fraternal or athletic groups, or [...] and heating? Not hard at all 09/19/2022 [facility] [place] of Occupat ional Health - Occupational Stress [...] Master's degree (e.g., MA, MS, Starla, MEd, RAILROAD CAR CLEANER, DEBRA) 09/16/2018 Sex and Gender Information Value Date Recorded Sex Assigned at Male 10/08/2017 8:25 AM CDT Gender Identity Male 10/08/2017 8:25 AM CDT Sexual Orientation Straight 10/08/2017 8: 25 AM CDT documented as of this encounter Progress Notes * Get Ragland, JASON, C.N.P., D.N.P. - 11/28/2022 10:00 AM CDT SUBJECTIVE History of present illness: Get [facility] a [facility]-up appointment for ongoing evaluation and assistance with weight loss while continuing to pursue efforts at weight loss. Today's visit was completed with audiovisual equipment virtually from provider's office to patient's home due to the COVID 19 pandemic. Patient consented to this service. Recent weight trend is as follows: Most recent weight: 11/27/22 110 kg 09/26/22 108 kg 09/05/22 109 kg 08/21/22 110 kg 07/22/22 112 kg Obesity related comorbidities include Obstructive Sleep Apnea, Hypertension Current medications for weight management: Wegovy was prescribed but not started due to cost Previous medications used for weight management: None Current dietary habits Emphasis on protein, and eating 3 meals per day Breakfast: yogurt with berries and grape nuts, 1-2 slices toast Lunch: salad Dinner: meat, vegetable, pasta or rice or potato Snacks: venison, salami, bananas or fruit Beverages: water, coffee without 1/2 and 1/2 now Calorie Goal: A bit over 2000 per day is what he estimates he is at currently. May be up to 2500 he estimates. Current physical activity: Doing a bit of lawn care and branch cutting recently. Not getting his heartrate up as much as he would like. Feet are a bit sore; feels like CV fitness is low right now. Activity Tracker Use: no Pertinent review of [...] Other orders - Endocrinology office visit (clinic) Medication management: Discussed options to try to obtain better insurance coverage with him today. He would like to stickwith Wegovy if at all possible, and I agree, that this is the likely most potent option he has available in terms of medications for weight loss. If he is unable to get appropriate coverage, we couldconsider other therapies, and he will let us know if this is the case, and I would prescribe medication in the meantime. Follow up: Patient to follow up in 3 months with myself. Weight Loss Medication Management Guidelines: For patients taking medications for weight loss, if the patient cannot tolerate the medication due to side effects including gastrointestinal, mood, or other side effects, they can stop the medication. For issues with cost of weight loss medications, patients need to look at the home theater experience expert's website for decreased copayment coupons, check with [...] ordered. I personally spent a total of 20 minutes in ymd-mwrn-lb-face time performing a review of the record, care coordination, documentation, and discussion with the patient as described above. documented in this encounter Plan of Treatment Upcoming Encounters Date Type Department Care Team (Latest Contact Info) Description 05/28/2023 9:30 AM COOLING TOWER OPERATOR Clinical Communication Virtual Review in [place], [place] 200 [place] [address] 05/30/2023 11:00 AM COOLING TOWER OPERATOR Appointment Department of Laboratory Medicine and Pathology, [facility] in [place], [place] [address] [place] [phone] Sole Read APRN, C.N.P., D.N.P. [address] [place] [phone] 05/30/2023 1:00 PM COOLING TOWER OPERATOR Office Visit Division of Hematology in [place], [place] [address] [place] [phone] Sole Read APRN, C.N.P., D.N.P. [address] [place] [phone] 06/17/2023 10:30 AM COOLING TOWER OPERATOR Clinical Communication Virtual Review in [place], [place] [address] [place] [address] 06/18/2023 2:00 PM COOLING TOWER OPERATOR Office Visit Division of Endocrinology in [place], [place] [address] [place] [phone] Get Ragland APRN, C.N.P., D.N.P. [address] [place] [phone] 06/25/2023 10:30 AM CDT Appointment Department of Laboratory Medicine in [address] [phone] Bárbara Soto APRN, C.N.P. [address] [place] [phone] Scheduled Referrals Name Type Priority Associated Diagnoses Order Schedule Endocrinology office visit (clinic) Outpatient Referral Routine Obesity Body Mass Index 30-39.9 Adult Sleep Apnea Hypertension Essential Primary Expected: 02/27/2023 (Approximate), Expires: 02/29/2024 documented as of this encounter Visit Diagnoses Diagnosis Obesity Body Mass Index 30-39.9 Adult Sleep Apnea Hypertension Essential Primary documented in this encounter Additional Health Concerns Infection Onset Date Last Indicated Resolved Time Protective Environment 07/19/2022 07/19/2022 Assessment Noted Time PHQ-9 Depression Total Score: 0 01/01/20 16 12:53 PM CDT documented as of this encounter Care Teams Social Services Analyst Relationship Specialty Start Date End Date Elsewhere, Pcp PCP - General Family Medicine 11/27/20 documented as of this encounter
--- OUTSIDE RECORDS SUMMARY | 2023-05-01 16:08 | XMS_ITS | Encounter Summary ---
Author Name Unknown Organization [facility] Address [address] [place] [address] Care Team Providers Care Assembler Fluorescent Lights Name Role Phone Elsewhere, Pcp Primary Care Provider Unavailabl e Encounter Details Date Type Department Care Team (Late st Contact Info) Description 11/25/2022 Clinical Communication Department of Infusion Therapy in [address] [phone] Yadira Ricardo R.N. [address] [place] [phone] Social History Tobacco Use Types Packs/Day Years [...] often do you attend chur ch or mandaeism services? Never 07/16/2022 Do you belong to [...] and heating? Not hard at all 09/19/2022 [facility] - Occupational Stress Questionnaire Answer Date [...] your living situation today? I have a [facility] place to live 09/19/2022 Education Answer Date Recorded What is the highest level of school you have completed or the highest degree you have received? Master's degree (e.g., MA, MS, Starla, MEd, SHIPPING AND RECEIVING OPERATOR, DEBRA) 09/16/2018 Sex and Gender Information Value Date Recorded Sex Assigned at Male 10/08/2017 8:25 AM CDT Gender Identity Male 10/08/2017 8:25 AM CDT Sexual Orientation Straight 10/08/2017 8: 25 AM CDT documented as of this encounter Plan of Treatment Upcoming Encounters Date Type Department Care Team (Latest Contact Info) Description 05/28/2023 9:30 AM HAZARDOUS SUBSTANCES SCIENTIST Clinical Communication Virtual Review in [place], [place] 200 [place] [address] 05/30/2023 11:00 AM HAZARDOUS SUBSTANCES SCIENTIST Appointment Department of Laboratory Medicine and Pathology, [facility], in [place], [place] [address] [place] [phone] Sole Read APRN, C.N.P., D.N.P. [address] [place] [phone] 05/30/2023 1:00 PM HAZARDOUS SUBSTANCES SCIENTIST Office Visit Division of Hematology in [place], [place] [address] [place] [phone] Sole Read APRN, C.N.P., D.N.P. [address] [place] [phone] 06/17/2023 10:30 AM HAZARDOUS SUBSTANCES SCIENTIST Clinical Communication Virtual Review in [place], [place] 200 [place] [address] 06/18/2023 2:00 PM HAZARDOUS SUBSTANCES SCIENTIST Office Visit Division of Endocrinology in [place], [place] [address] [place] [phone] Get Ragland APRN, C.N.P., D.N.P. [address] [place] [phone] 06/25/2023 10:30 AM CDT Appointment Department of Laboratory Medicine in [address] [phone] Bárbara Soto APRN, C.N.P. [address] [place] [phone] documented as of this encounter Visit Diagnoses Not on filedocumented in this encounter Additional Health Concerns Infection Onset Date Last Indicated Resolved Time Protective Environment 07/19/2022 07/19/2022 Assessment Noted Time PHQ-9 Depression Total Score: 0 01/01/20 16 12:53 PM CDT documented as of this encounter Care Teams Assembler Fluorescent Lights Relationship Specialty Start Date End Date Elsewhere, Pcp PCP - General Family Medicine 11/27/20 documented as of this encounter
--- OUTSIDE RECORDS SUMMARY | 2023-05-01 16:08 | XMS_ITS | Encounter Summary ---
Author Name Unknown Organization [facility] Address [address] [place] [address] Care Team Providers Care Reworker Name Role Phone Elsewhere, Pcp Primary Care Provider Unavailabl e Reason for Referral * Outpatient (Routine) - Closed Specialty Diagnoses / Procedures Referred By Contac t Referred To Contact Rheumatology Bárbara Soto APRN, C.N.P. [address] [place] [phone] [facility] Referral ID Status Reason Start Date Expiration Date Visits Re quested Visits Authorized [id number] Closed 09/26/2022 09/25/2025 1 1 Reason for Visit * Outpatient (Routine) - Closed Specialty Diagnoses / Procedures Referred By Nuvia de leon Referred To Contact Rheumatology Bárbara Soto APRN, C.N.P. [address] [place] [address] [facility] Referral ID Status Reason Start Date Expiration Date Visits Re quested Visits Authorized [id number] Closed 10/11/2021 10/11/2022 1 1 Encounter Details Date Type Department Care Team (Latest Contact Info) Description 09/26/2022 10:30 AM CDT Office Visit Division of Rheumatology in [place], [place] 200 [place] [phone] Bárbara Soto, JASON, C.N.P. 200 [place] [phone] Arthritis Psoriatic (HCC) (Primary Dx); High Risk [...] How often do you attend chur or anabaptist services? Never 07/16/2022 Do you belong to any clubs o r organizations such as jehovah's witness groups, unions, fraternal or athletic groups, or [...] and heating? Not hard at all 09/19/2022 [facility] of Occupat ional [facility] - Occupational Stress Questionnaire Answer Date Recorded [...] living situation today? [facility] 09/19/2022 Education Answer Date Recorded What is the highest level of school you have completed or the highest degree you have received? Master's degree (e.g., MA, MS, Starla, MEd, CIGAR BANDER HAND, DEBRA) 09/16/2018 Sex and Gender Information Value Date Recorded Sex Assigned at Male 10/08/2017 8:25 AM CDT Gender Identity Male 10/08/2017 8:25 AM CDT Sexual Orientation Straight 10/08/2017 8: 25 AM CDT documented as of this encounter Last Filed Vital Signs Vital Sign Reading Time Taken Comments Blood Pressure 124/72 09/26/2022 10:22 AM CDT Pulse 75 09/26/2022 10:22 AM CDT Temperature 36.8 ??C (98.2 ??F) 09/26/2022 10:22 AM C DT Respiratory Rate - - Oxygen Saturation - - Inhaled Oxygen Concentration - - Weight 108 kg (237 lb 1.7 oz) 09/26/2022 10:22 A M CDT Height 175.6 cm (5' 9.13) 09/26/2022 10:22 AM C DT Body Mass Index 34.88 09/26/2022 10:22 AM CDT documented in this encounter Progress Notes * Bárbara Soto, JASON, C.N.P. - 09/26/2022 10:30 AM CDT Images from the original note [...] [place] for follow-up of his psoriatic arthritis. Overall he reports he hasbeen dealing with significant stressors lately, as he and his siblings have been working together to settle their parents' estate with some disagreement. His right ankle pain has settled itself out, and he is no longer considering surgery as previously discussed with Dr. Esparza. Bilateral hand and wrist pain has progressively worsened. Morning stiffness is now lasting between 2 hours to the entire day. He received a prednisone taper 09/03/22 and reports his symptoms initiallyimproved, however shortly after completing the course his symptoms returned. He continues to have pain with his right wrist when he moves it laterally. He continues to have finger cramping with fine motor movements. His second and third fingers on the right as well as his third and fourth fingers on the left will lock and he will manually need to extend the fingers. Pain is currently limiting hisactivities. 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 His last Simponi Aria infusion was approximately 2 weeks ago. He continues to take Simponi Aria 2 mg/kilogram IV infusion every 8 weeks, methotrexate 17.5 mg PO once weekly, folic acid 1 mg daily, and Celebrex 100 mg twice a day. He denies any adverse side effects to medications. He denies recent ho spitalization. April 2022 he was infected with COVID and received Paxlovid, he states his respiratory symptoms were minimal and he responded well to treatment. About 2 weeks ago he noted a rash on the back of his right leg. His is concerned this may be a bullseye rash and associated with Lyme's disease, contributing to his worsening joint symptoms. He has applied triamcinolone to the area,with no improvement. Rheumatoid Arthritis AM stiffness: 2 hours Current [...] Hematologic, Neurological, Psychiatric OBJECTIVE PHYSICAL EXAM Physical ExamGeneral: Alert, oriented, appropriate affect, no apparent distress. Skin: No rheumatologic rashes or ulcers noted. No psoriasis at this time. Brightly erythematous, annular scaly plaque on posterior right leg with central clearing. Eyes: Clear conjunctivae and lids. Lymph: No cervical or supraclavicular adenopathy. Cardio: Regular rate. No murmurs. Lungs: Clear to auscultation bilaterally. Extremities: No limitations in ROM bilaterally. Joints: See joint exam. Bilateral 4th Dupuytren's contractures noted. 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 Lab: CBC with differential: Platelets 112. Creatinine, GFR, and AST all within normal limits. 02/19/2021 06/06/2021 10/11/2021 09/26/2022 Tender joint count (0-28) 2 2 2 10 Swollen joint count (0-28) 0 0 0 8 Patient global assessment (0-100) 38 36 51 36 Teletray Operator global assessment (0-100) 35 35 40 50 ESR (mm/h) 5 9 1 -- CRP (mg/L) 3 3 3 -- Disease Activity Score 28 using ESR ([id number]) 2.45 2.83 1.51 -- Disease Activity Score 28 using CRP ([id number]) 2.78 2.76 2.97 -- Clinical Disease Activity Index (CDAI) 9.3 9.1 11.1 26.6 Simplified Disease Activity Index (SDAI) 9.6 9.4 11.4 -- ASSESSMENT / PLAN #1 Arthritis Psoriatic (HCC) #2 Hodgkin's lymphoma in Remission #3 Bilateral lateral wrist pain Joint symptoms have progressively worsened, primarily in bilateral hands and wrists. CDAI has increased to 26.6 today. Symptoms improved only temporarily with recent prednisone course. Mr. Ovalles is understandably concerned that his Simponi is no longer as effective in managing his condition. We discussed options moving forward, including transition from oral to subcutaneous methotrexate, transition to an IL-23 inhibitor such as Tremfya, or continuing current medications to see if symptoms improve following resolution of acute life stressors. He has elected to transition to subcutaneous methotrexate for now. We will continue his 17.5 mg dosage. In 3 months if symptoms have not improved tyroneduranvalerio plan to trial Tremfya in place of Simponi. For now he will continue Simponi Aria 2 mg/kilogramIV infusion every 8 weeks, folic acid 1 mg daily, and Celebrex 100 mg twice daily. #4 Rash leg Initial presentation and features of the rash are not consistent with Lyme Disease. We discussed that it is unlikely his symptoms are due to a reactive arthritis secondary to Lyme's. The lesion appears to be more consistent with tinea corporis. Topical corticosteroids have caused the lesion to worsen, I recommend he discontinue the use of these and follow-up with his PCP. I will follow up with him in 3 months, sooner if symptoms worsen or do not improve. I answered the patients questions to the best of my ability. The patient seemed pleased with our interaction. If he should have any additional questions or concerns. I have asked that he contact us at that time. documented in this encounter Plan of Treatment Upcoming Encounters Date Type Department Care Team (Latest Contact Info) Description 05/28/2023 9:30 AM SALES BROKER Clinical Communication Virtual Review in [place], [place] 200 [place] [address] 05/30/2023 11:00 AM SALES BROKER Appointment Department of Laboratory Medicine and Pathology, [facility] in [place], [place] [address] [place] [phone] Sole Read APRN, C.N.P., D.N.P. [address] [place] [phone] 05/30/2023 1:00 PM SALES BROKER Office Visit Division of Hematology in [place], [place] [address] [place] [phone] Sole Read APRN, C.N.P., D.N.P. [address] [place] [phone] 06/17/2023 10:30 AM SALES BROKER Clinical Communication Virtual Review in [place], [place] 200 [place] [address] 06/18/2023 2:00 PM SALES BROKER Office Visit Division of Endocrinology in [place], [place] [address] [place] [phone] Get Ragland APRN, C.N.P., D.N.P. [address] [place] [phone] 06/25/2023 10:30 AM CDT Appointment Department of Laboratory Medicine in [address] [phone] Bárbara Soto APRN, C.N.P. [address] [place] [phone] Scheduled Referrals Name Type Priority Associated Diagnoses Order Schedule Rheumatology office visit (clinic) Outpatient Referral Routine Expected: 12/27/2022 (Approximate), Expires: 12/28/2023 documented as of this encounter Results * CRP (C-Reactive Protein) (12/18/2022 9:39 AM CDT) C-Reactive Protein (CRP), P <3.0 <5.0 mg/L 12/18/2022 10:18 AM CDT CNFL Blood (Blood, Venous) 12/18/2022 9:39 AM CDT 12/18/2022 9:40 AM CDT Bárbara Soto APRN, C.N.P. LAB BLOOD ADD-ON [facility] [address] [place] [phone], [facility] CNFL [facility] [place] in [address] [address] * Sedimentation Rate (12/18/2022 9:39 AM CDT) Sedimentation Rate, B 4 0 - 22 mm/1 h 12/18/2022 1:34 PM CDT RDWG Blood (Blood, Venous) 12/18/2022 9:39 AM CDT 12/18/2022 12:56 PM CDT Bárbara Soto APRN, C.N.P. LAB BLOOD ADD-ON [facility] [address] [place] [address] [place] [address], [facility] RDWG [facility] [place] in [place] [address] [place] [phone] documented in this encounter Visit Diagnoses Diagnosis Arthritis Psoriatic (HCC)- Primary High Risk Medication documented in this encounter Additional Health Concerns Infection Onset Date Last Indicated Resolved Time Protective Environment 07/19/2022 07/19/2022 Assessment Noted Time PHQ-9 Depression Total Score: 0 01/01/20 16 12:53 PM CDT documented as of this encounter Care Teams Reworker Relationship Specialty Start Date End Date Elsewhere, Pcp PCP - General Family Medicine 11/27/20 documented as of this encounter
--- OUTSIDE RECORDS SUMMARY | 2023-05-01 16:08 | XMS_ITS | Encounter Summary ---
Author Name Unknown Organization [facility] Address [address] [place] [address] Care Team Providers Care Primer And Powder Canning Leader Name Role Phone Elsewhere, Pcp Primary Care Provider Unavailabl e Encounter Details Date Type Department Care Team (Late st Contact Info) Description 11/14/2022 Orders Only Division of Rheumatology in [place], [place] [address] [place] [phone] Bárbara Soto, SPECIAL EDUCATION SECRETARY, C.N.P. [address] [place] [phone] Arthritis Psoriatic (HCC) (Primary Dx) Social History [...] How often do you attend chur or evangelical services? Never 07/16/2022 Do you belong to [...] and heating? Not hard at all 09/19/2022 [facility] of Occupat ional Health - Occupational [...] your living situation today? I have a [facility] place to live 09/19/2022 Education Answer Date Recorded What is the highest level of school you have completed or the highest degree you have received? Master's degree (e.g., MA, MS, Starla, MEd, HEEL BUILDER, DEBRA) 09/16/2018 Sex and Gender Information Value Date Recorded Sex Assigned at Male 10/08/2017 8:25 AM CDT Gender Identity Male 10/08/2017 8:25 AM CDT Sexual Orientation Straight 10/08/2017 8: 25 AM CDT documented as of this encounter Plan of Treatment Upcoming Encounters Date Type Department Care Team (Latest Contact Info) Description 05/28/2023 9:30 AM WASH PLANT OPERATOR Clinical Communication Virtual Review in [place], [place] 200 [place] [address] 05/30/2023 11:00 AM WASH PLANT OPERATOR Appointment Department of Laboratory Medicine and Pathology, [facility], in [place], [place] [address] [place] [phone] Sole Read APRN, C.N.P., D.N.P. [address] [place] [phone] 05/30/2023 1:00 PM WASH PLANT OPERATOR Office Visit Division of Hematology in [place], [place] [address] [place] [phone] Sole Read APRN, C.N.P., D.N.P. [address] [place] [phone] 06/17/2023 10:30 AM WASH PLANT OPERATOR Clinical Communication Virtual Review in [place], [place] 200 [place] [address] 06/18/2023 2:00 PM WASH PLANT OPERATOR Office Visit Division of Endocrinology in [place], [place] [address] [place] [phone] Get Ragland APRN, C.N.P., D.N.P. [address] [place] [phone] 06/25/2023 10:30 AM CDT Appointment Department of Laboratory Medicine in [address] [phone] Bárbara Soto APRN, C.N.P. [address] [place] [phone] documented as of this encounter Visit Diagnoses Diagnosis Arthritis Psoriatic (HCC)- Primary documented in this encounter Additional Health Concerns Infection Onset Date Last Indicated Resolved Time Protective Environment 07/19/2022 07/19/2022 Assessment Noted Time PHQ-9 Depression Total Score: 0 01/01/20 16 12:53 PM CDT documented as of this encounter Care Teams Primer And Powder Canning Leader Relationship Specialty Start Date End Date Elsewhere, Pcp PCP - General Family Medicine 11/27/20 documented as of this encounter
--- OUTSIDE RECORDS SUMMARY | 2023-05-01 16:08 | XMS_ITS | Encounter Summary ---
Author Name Unknown Organization [facility] Address [address] [place] [address] Care Team Providers Care Employee Communications Intern Name Role Phone Elsewhere, Pcp Primary Care Provider Unavailabl e Reason for Visit * Reason Onset Date Comments Pre-visit Intake 09/25/2022 Encounter Details Date Type Department Care Team (Latest Contact Info) Description 09/25/2022 10:15 AM CDT Clinical Communication Virtual Review in [place], [place] [address] [place], [place] [id number] Pre-visit Intake Social History Tobacco Use Types [...] often do you attend chur ch or bahai services? Never 07/16/2022 Do you belong to [...] and heating? Not hard at all 09/19/2022 [facility] - [facility] Stress Questionnaire Answer Date [...] your living situation today? I have a [facility] place to live 09/19/2022 Education Answer Date Recorded What is the highest level of school you have completed or the highest degree you have received? Master's degree (e.g., MA, MS, Starla, MEd, CORPORATE PLANNING MANAGER, DEBRA) 09/16/2018 Sex and Gender Information Value Date Recorded Sex Assigned at Male 10/08/2017 8:25 AM CDT Gender Identity Male 10/08/2017 8:25 AM CDT Sexual Orientation Straight 10/08/2017 8: 25 AM CDT documented as of this encounter Plan of Treatment Upcoming Encounters Date Type Department Care Team (Latest Contact Info) Description 05/28/2023 9:30 AM TELECOMMUNICATIONS SUPPORT Clinical Communication Virtual Review in [place], [place] [address] [place] [address] 05/30/2023 11:00 AM TELECOMMUNICATIONS SUPPORT Appointment Department of Laboratory Medicine and Pathology, [facility], in [place], [place] [address] [place] [phone] Sole Read, JASON, C.N.P., D.N.P. [address] [place] [phone] 05/30/2023 1:00 PM TELECOMMUNICATIONS SUPPORT Office Visit Division of Hematology in [place], [place] [address] [place] [phone] Sole Read APRN, C.N.P., D.N.P. [address] [place] [phone] 06/17/2023 10:30 AM TELECOMMUNICATIONS SUPPORT Clinical Communication Virtual Review in [place], [place] [address] [place] [address] 06/18/2023 2:00 PM TELECOMMUNICATIONS SUPPORT Office Visit Division of Endocrinology in [place], [place] [address] [place] [phone] Get Ragland APRN, C.N.P., D.N.P. [address] [place] [phone] 06/25/2023 10:30 AM CDT Appointment Department of Laboratory Medicine in [address] [phone] Bárbara Soto APRN, C.N.P. [address] [place] [phone] documented as of this encounter Visit Diagnoses Not on filedocumented in this encounter Additional Health Concerns Infection Onset Date Last Indicated Resolved Time Protective Environment 07/19/2022 07/19/2022 Assessment Noted Time PHQ-9 Depression Total Score: 0 01/01/20 16 12:53 PM CDT documented as of this encounter Care Teams Employee Communications Intern Relationship Specialty Start Date End Date Elsewhere, Pcp PCP - General Family Medicine 11/27/20 documented as of this encounter
--- OUTSIDE RECORDS SUMMARY | 2023-05-01 16:08 | XMS_ITS | Encounter Summary ---
Author Name Unknown Organization [facility] Address [address] [place] [address] Care Team Providers Care Records Section Supervisor Name Role Phone Elsewhere, Pcp Primary Care Provider Unavailabl e Encounter Details Date Type Department Care Team (Latest Contact Info) Description 11/26/2022 8:46 AM CDT - 11/26/2022 9:35 AM CDT Hospital Encounter Department of Laboratory Medicine and Pathology, [facility], in [place], [place] [address] [place] [phone] Sole Read APRN, C.N.P., D.N.P. [address] [place] [phone] Hodgkin Lymphoma Unspecified Lymph Nodes Of Axilla [...] How often do you attend chur or nondenominational services? Never 07/16/2022 Do you belong to [...] and heating? Not hard at all 09/19/2022 [facility] ional [facility] - Occupational Stress [...] your living situation today? I have a [facility] place to live 09/19/2022 Education Answer Date Recorded What is the highest level of school you have completed or the highest degree you have received? Master's degree (e.g., MA, MS, Starla, MEd, HUMAN RESOURCES SERVICES SPECIALIST, DEBRA) 09/16/2018 Sex and Gender Information [...] SQ 1 Ml Injection KitIndications:Arthr itis Psoriatic ([facility]) For methotrexate injections 1 kit 3 09/26/2022 [...] (Latest Contact Info) Description 05/28/2023 9:30 AM CALL CENTER RECRUITER Clinical Communication Virtual Review in [address] [address] 05/30/2023 11:00 AM CALL CENTER RECRUITER Appointment Department of Laboratory Medicine and Pathology, [facility] in [place], [place] [address] [place] [phone] Sole Read APRN, C.N.P., D.N.P. [address] [place] [phone] 05/30/2023 1:00 PM CALL CENTER RECRUITER Office Visit Division of Hematology in [place], [place] [address] [place] [phone] Sole Read APRN, C.N.P., D.N.P. [address] [place] [phone] 06/17/2023 10:30 AM CALL CENTER RECRUITER Clinical Communication Virtual Review in [address] [address] 06/18/2023 2:00 PM CALL CENTER RECRUITER Office Visit Division of Endocrinology in [place], [place] [address] [place] [phone] Get Ragland APRN, C.N.P., D.N.P. [address] [place] [phone] 06/25/2023 10:30 AM CDT Appointment Department of Laboratory Medicine in [address] [phone] Bárbara Soto APRN, C.N.P. 200 [place] [phone] documented as of this encounter Procedures Procedure Name Priority Date/Time Associated Diagnosis Comments SEDIMENTATION RATE, B Routine 11/26/2022 8:59 AM CDT Hodgkin Lymphoma Unspecified Lymph Nodes Of Axilla And Upper Limb (HCC) CBC WITH DIFFERENTIAL, B Routine 023 8:59 AM CDT Hodgkin Lymphoma Unspecified Lymph Nodes Of Axilla And Upper Limb (HCC) ASPARTATE AMINOTRANSFERASE (AST), S/P Routine 11/26/2022 8:59 AM CDT Hodgkin Lymphoma Unspecified Lymph Nodes Of Axilla And Upper Limb (HCC) POTASSIUM, S/P Routine 11/26/2022 8:59 AM CDT Hodgkin Lymphoma Unspecified Lymph Nodes Of Axilla And Upper Limb (HCC) ALKALINE PHOSPHATASE, S/P Routine 11/26/2022 8:59 AM CDT Hodgkin Lymphoma Unspecified Lymph Nodes Of Axilla And Upper Limb (HCC) LACTATE DEHYDROGENASE (LD), S Routine 11/26/2022 8:59 AM CDT Hodgkin Lymphoma Unspecified Lymph Nodes Of Axilla And Upper Limb (HCC) CREATININE WITH EGFR, S/P Routine 11/26/2022 8:59 AM CDT Hodgkin Lymphoma Unspecified Lymph Nodes Of Axilla And Upper Limb (HCC) CALCIUM, TOT, S/P Routine 11/26/2022 8:5 9 AM CDT Hodgkin Lymphoma Unspecified Lymph Nodes Of Axilla And Upper Limb (HCC) BILIRUBIN, TOT, S/P Routine 11/26/2022 8 :59 AM CDT Hodgkin Lymphoma Unspecified Lymph Nodes Of Axilla And Upper Limb (HCC) documented in this encounter Results * Sedimentation Rate (11/26/2022 8:59 AM CDT) Sedimentation Rate, B 2 2 - 20 mm/h 11/26/2022 10:37 AM CDT DTL Blood (Blood, Venous) 11/26/2022 8:59 AM CDT 11/26/2022 9:20 AM CDT Sole Read APRN C.N.P., D.N.P. LAB BLOOD ADD-ON Performing Organization Address City/[facility]/ZIP Co de Phone Number [facility] [address] 200 [place] [address] * Potassium (11/26/2022 8:59 AM CDT) Pathologist [facility] Potassium, S 4.4 3.6 - 5.2 mmol/L 11/26/2022 10:52 AM CDT DTL Blood (Blood, Venous) 11/26/2022 8:59 AM CDT 11/26/2022 9:36 AM CDT Sole Read APRN C.N.P., D.N.P. LAB BLOOD ADD-ON Performing Organization Address City/[facility]/ZIP Co de Phone Number [facility] 200 [place] [address] * (ABNORMAL) LD (Lactate Dehydrogenase) (11/26/2022 8:59 AM CDT) Lactate Dehydrogenase (LD), S 338(H) 122 - 222 U/L 11/26/2022 10:52 AM CDT DTL Blood (Blood, Venous) 11/26/2022 8:59 AM CDT 11/26/2022 9:36 AM CDT Lanny Perez APRN.N.P., D.N.P. LAB BLOOD NON ADD-ON Performing Organization Address City/[facility] Co de Phone Number [facility] [address] [place] [address] * Creatinine with Estimated GFR (11/26/2022 8:59 AM CDT) Pathologist [facility] Creatinine 1.16 0.74 - 1.35 mg/dL 11/26/2022 10:52 AM CDT DTL Estimated GFR (eGFR) 70 >=60 mL/min/BSA 11/26/2022 10:52 AM CDT DTL Comment: Estimated GFR calculated using the 2020 CKD_EPI creatinine equation. Blood (Blood, Venous) 11/26/2022 8:59 AM CDT 11/26/2022 9:36 AM CDT Lanny Perez APRN.N.P., D.N.P. LAB BLOOD ADD-ON Performing Organization Address City/[facility] Co de Phone Number [facility] 200 [place] [address], [facility] [place] [address] * (ABNORMAL) CBC with Differential, Blood (11/26/2022 8:59 AM CDT) Pathologist [facility] Hemoglobin 14.0 13.2 - 16.6 g/dL 11/26/2022 9:47 AM CDT DTL Hematocrit 41.1 38.3 - 48.6 % 11/26/2022 9:47 AM CDT DTL Erythrocytes 4.26(L) 4.35 - 5.65 x10(12)/L 11/26/2022 9:47 AM CDT DTL MCV 96.5 78.2 - 97.9 fL 11/26/2022 9:47 AM CDT DTL RBC Distrib Width 14.2 11.8 - 14.5 % 11/26/2022 9:47 AM CDT DTL Platelet Count 125(L) 135 - 317 x10(9)/L 11/26/2022 10:38 AM CDT DTL Leukocytes 4.8 3.4 - 9.6 x10(9)/L 11/26/2022 10:38 AM CDT DTL Neutrophils 2.86 1.56 - 6.45 x10(9)/L 11/26/2022 9:47 AM CDT [facility] Lymphocytes 1.09 0.95 - 3.07 x10(9)/L 11/26/2022 9:47 AM CDT DTL Monocytes 0.52 0.26 - 0.81 x10(9)/L 11/26/2022 9:47 AM CDT DTL Eosinophils 0.25 0.03 - 0.48 x10(9)/L 11/26/2022 9:47 AM CDT DTL Basophils 0.03 0.01 - 0.08 x10(9)/L 11/26/2022 9:47 AM CDT DTL Blood (Blood, Venous) 11/26/2022 8:59 AM CDT 11/26/2022 9:20 AM CDT Sole Read APRN, C.N.P., D.N.P. LAB BLOOD ADD-ON [facility] [address] [place] [address], [facility] DTL [facility] [address] [place] [address] [facility] [address] [place] [address] * Calcium, Total (11/26/2022 8:59 AM CDT) Pathologist [facility] Calcium, Total, S 8.8 8.8 - 10.2 mg/dL 11/26/2022 10:52 AM CDT DTL Blood (Blood, Venous) 11/26/2022 8:59 AM CDT 11/26/2022 9:36 AM CDT Lanny Perez APRN.N.P., D.N.P. LAB BLOOD ADD-ON Performing Organization Address City/[facility]/ZIP Co de Phone Number [facility] [address] 200 [place] [address] * Bilirubin, Total (11/26/2022 8:59 AM CDT) Bilirubin, Total, S 1.2 <=1.2 mg/dL 11/26/2022 10:52 AM CDT DTL Blood (Blood, Venous) 11/26/2022 8:59 AM CDT 11/26/2022 9:36 AM CDT Lanny Perez APRN.N.P., D.N.P. LAB BLOOD ADD-ON Performing Organization Address City/[facility] Co de Phone Number [facility] 200 [place] [address], [facility] 200 [place] [address] * AST (Aspartate Aminotransferase) (11/26/2022 8:59 AM CDT) Aspartate Aminotransferase (AST), S 26 8 - 48 U/L 11/26/2022 10:52 AM CDT DTL Blood (Blood, Venous) 11/26/2022 8:59 AM CDT 11/26/2022 9:36 AM CDT Sole Read APRN C.N.P., D.N.P. LAB BLOOD ADD-ON [facility] [address] [place] [address], [facility] [address] [place] [address] * Alkaline Phosphatase (11/26/2022 8:59 AM CDT) Alkaline Phosphatase, S 48 40 - 129 U/L 11/26/2022 10:52 AM CDT DTL Blood (Blood, Venous) 11/26/2022 8:59 AM CDT 11/26/2022 9:36 AM CDT Sole Read APRN, C.N.P., D.N.P. LAB BLOOD ADD-ON [facility] [address] [place] [address], [facility] [address] [address] documented in this encounter Visit Diagnoses Diagnosis Hodgkin Lymphoma Unspecified Lymph Nodes Of Axilla And Upper Limb (HCC) documented in this encounter Additional Health Concerns Infection Onset Date Last Indicated Resolved Time Protective Environment 07/19/2022 07/19/2022 Assessment Noted Time PHQ-9 Depression Total Score: 0 01/01/20 16 12:53 PM CDT documented as of this encounter Care Teams Records Section Supervisor Relationship Specialty Start Date End Date Elsewhere, Pcp PCP - General Family Medicine 11/27/20 documented as of this encounter
--- OUTSIDE RECORDS SUMMARY | 2023-05-01 16:08 | XMS_ITS | Encounter Summary ---
Author Name Unknown Organization [facility] Address [address] [place] [address] Care Team Providers Care Weight Recorder Name Role Phone Elsewhere, Pcp Primary Care Provider Unavailabl e Reason for Referral * Outpatient (Routine) - Authorized Specialty Diagnoses / Procedures Referred By Contac t Referred To Contact Hematology Oncology Sole Read APRN, C.N.P., D.N.P. [address] [place] [address] [facility] Referral ID Status Reason Start Date Expiration Date V isits Requested Visits Authorized [id number] Authorized 11/27/2022 11/26/2025 1 1 Reason for Visit * Outpatient (Routine) - Closed Specialty Diagnoses / Procedures Referred By Contac t Referred To Contact Hematology Oncology Sole Read APRN, C.N.P., D.N.P. [address] [place] [phone] [facility] Referral ID Status Reason Start Date Expiration Date Visits Re quested Visits Authorized [id number] Closed 07/22/2022 07/21/2025 1 1 Encounter Details Date Type Department Care Team (Late st Contact Info) Description 11/27/2022 11:00 AM CDT Office Visit Division of Hematology in [place], [place] 200 [place] [address] Sole Read APRN, C.N.P., D.N.P. 200 [place] [phone] Hodgkin Lymphoma Unspecified Lymph Nodes Of Axilla And Upper Limb (HCC) (Primary Dx) Social History Tobacco Use [...] often do you attend chur ch or jew services? Never 07/16/2022 Do you belong to any clubs o r organizations such as orthodoxy groups, unions, fraternal or athletic groups, or [...] and heating? Not hard at all 09/19/2022 [facility] of Occupat ional Health - Occupational Stress [...] Master's degree (e.g., MA, MS, Starla, MEd, INSTRUCTIONAL DESIGN MANAGER, DEBRA) 09/16/2018 Sex and Gender Information Value Date Recorded Sex Assigned at Male 10/08/2017 8:25 AM CDT Gender Identity Male 10/08/2017 8:25 AM CDT Sexual Orientation Straight 10/08/2017 8: 25 AM CDT documented as of this encounter Last Filed Vital Signs Vital Sign Reading Time Taken Comments Blood Pressure 147/79 11/27/2022 10:50 AM CDT Pulse 74 11/27/2022 10:50 AM CDT Temperature 36.7 ??C (98 ??F) 11/27/2022 10:50 AM CDT Respiratory Rate - - Oxygen Saturation - - Inhaled Oxygen Concentration - - Weight 110 kg (242 lb 8.1 oz) 11/27/2022 10:50 A M CDT Height 176 cm (5' 9.29) 11/27/2022 10:50 AM CDT Body Mass Index 35.51 11/27/2022 10:50 AM CDT documented in this encounter Progress Notes * Sole Read APRN, C.N.P., D.N.P. - 11/27/2022 11:00 AM CDT SUBJECTIVE CHIEF COMPLAINT / REASON FOR VISIT Primary lymphoma MD: Dr. Benz Primary lymphoma PARVIN: Sole Read APRN, COOK HOUSE SUPERVISOR, DNP Classical Hodgkin Lymphoma HISTORY OF PRESENT ILLNESS Oncology History Overview Note 03/22/2020 CT scan for follow up of Dilated aortic root IMPRESSION: 1. 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 Unchanged ascending thoracic aortic repair and descending thoracic aortic stent graft. 2. Near complete resolution of previously noted focal pararenal abdominal aortic outpouching. 3. Right axillary lymphadenopathy; further evaluation recommended. 04/27/2020 Right Axillary adenopathy, underwent Biopsy FNA: Suspicious. Atypical lymphoid cell, highly suspicious for classic Hodgkin Lymphoma. (See path report) Plan for more imaging/labs 05/12/2020 PET/CT IMPRESSION: FDG avid Hodgkin's lymphoma localized to right axillary lymph nodes. Indeterminant nodule within the left lobe of the thyroid gland. Deauville 5 05/23/2020 Right Axillary Biopsy-excision *lymph node with prominent fat infiltration and slight dermatopathic change and sinus histiocytosis. Negative for malignancy. *Resection did not show evidence of malignancy. See back in 3 months with a Chest CT 06/07/20 First ABVD infusion in [place] 09/08/2020 CT chest IMPRESSION: 1. Interval increase in bulky right axillary lymphadenopathy. No mediastinal or hilar lymphadenopathy. 2. Slightly increased aneurysmal dilation of the [place]ag[place] aortic root to 60 mm, detailed in the body of the report. Per Dr. Benz- plan for re-biopsy 09/14/2020 Lymph node Right axillary FNA: Suspicious for Classic Hodgkins Lymphoma although biopsy isnon diagnostic. Plan to try again with excisional biopsy. 09/25/2020 Right axillary excisional biopsy FINAL DIAGNOSIS A. Lymph node, right axillary, excisional biopsy: Nodular sclerosis classic Hodgkin lymphoma. 09/29/2020 PET/CT IMPRESSION: Worsening FDG-avid lymphadenopathy consistent for lymphoma. Largest lymph node was 2.8 x [address] Benz: Due to 2 different sites, his Hodgkin Lymphoma is stage IIA. Plan to proceed with 2-4 cycles of ABVD chemotherapy. Start Radiation therapy after 4 cycles. 11/27/2020 PET/CT IMPRESSION: Significant positive interval treatment response. Minor persistent mildly FDG avid lymph nodes are present in the right axilla. Deauville score 2. Several enlarged comparison screen captures provided. 11/28/2020 Cycle 3, day 1 ABVD infusion Hodgkin Lymphoma Unspecified Lymph Nodes Of Axilla And Upper Limb (HCC) 10/04/2020 - 01/09/2021 Chemotherapy ABVD ( DOXOrubicin / Bleomycin / vinBLAStine / Dacarbazine ) Start Date: 10/04/2020 02/01/2021 - 02/21/2021 Radiation Therapy Radiation Therapy Treatment Details (02/01/2021 - 02/21/2021) Site: Right Axilla Technique: 3D INDUSTRIAL ECONOMIST Goal: Curative Planned Treatment Start Date: 02/01/2021 INTERVAL HISTORY: Get Ovalles is a 67 y.o. male who presents for evaluation of his Hodgkin lymphoma. Patient completed ABVD in December of 2020 with consolidative RT to the right axilla. Patient reports he has beendoing well since we last saw him. He denies B symptoms and palpable adenopathy. He has not had recurrent infections nor emergency room visits. He has really been doing well and denies major interval changes. Otherwise, patient does not endorse fever, chills, drenching night sweats, unintentional weight loss, palpable adenopathy, fatigue, changes to appetite, nausea/vomiting, diarrhea, constipation, changes to bladder habits, neuropathy, palpitations, chest pain, shortness of breath, mouth sores, antibiotic use, hospitalizations, ER visits, changes to medical or surgical history, dizziness, and unexplained rash or pruritus. ECOG score 0. The following portions of the patient's history were reviewed and updated as appropriate: allergies, current medications, family history, medical history, social history, surgical history, and problem list. REVIEW OF SYSTEMS REVIEW OF SYSTEMS OBJECTIVE BP 147/79 (BP Location: Right arm, Patient Position: Sitting, Cuff Size: Regular) Pulse 74 Temp36.7 ??C (Tympanic) Ht 176 cm Wt 110 kg BMI 35.51 kg/m?? Wt Readings from Last 3 Encounters: 11/27/22 110 kg 09/26/22 108 kg 09/05/22 109 kg PHYSICAL EXAM General: Well-nourished, in good hygiene, in no apparent distress. Lungs: Symmetrical movements, clear to auscultation in all salas. No cough, wheezing, crackles or shortness of breath noted. Heart: Regular rate/rhythm, S1 S2, no gallop, rub, or murmur. Abdomen: Soft, non-tender, no distention. Bowel sounds in all 4 quadrants. There is no hepatosplenomegaly, or palpable masses. Lymphadenopathy: No cervical, supraclavicular, axillary, or inguinal lymphadenopathy palpable. Skin: Limited exam; No rash noted. Neck: Trachea midline, no tenderness, masses, lymphadenopathy, or enlargement of thyroid. Mouth: No erythema, ulcers, swelling, enlargement of tonsils or surrounding tissue, or thrush. Extremities: Warm, no edema. Spine: No tenderness on palpation of spinal processes. Psychiatric: Normal mood and affect. Behavior is normal. Judgment and thought content normal Neurological: Alert and oriented, clear speech. Steady gait without use of assistive device. No obvious deficits. DIAGNOSTICS I have reviewed the recent relevant laboratory studies and CT scan(s). Labs are stable. CT scan(s) show: IMPRESSION: No CT evidence of recurrent lymphoma in the abdomen or pelvis. IMPRESSION: 1. No thoracic lymphadenopathy. 2. Grossly stable dilatation of the aortic root on this non-gated exam. ASSESSMENT / PLAN #1 Hodgkin Lymphoma Unspecified Lymph Nodes Of Axilla And Upper Limb (HCC) It was a pleasure seeing Mr. Ovalles in clinic this morning. I reviewed patient's labs with him which include a normal CBC and stable LDH which is elevated secondary to his arthritis. Patient deniesB symptoms as well. I do not appreciate any cervical lymphadenopathy on physical examination. With him which show no evidence of lymphadenopathy or hepatosplenomegaly. Given this, I see no clinical, biochemical, or physical examination evidence of relapse of his lymphoma. Will continue on a course of surveillance. I will plan to see patient back in 6 months with labs and H&P. Patient understands he should contact me in the interim if he develops any concerning symptoms or if he has any concerns. PLAN: Follow-up in 6 months with labs and H&P. Clinical findings and plan communicated with Dr. Benz. Education We discussed the diagnosis and treatment plan in detail. The patient expressed understanding and agreement of the content and plan. No apparent learning barriers were identified; learning preferencesinclude listening. Pt allowed to ask questions; all questions answered. I personally spent a total 35 minutes face to face with the patient in counseling and discussion and/or coordination of care as described above. documented in this encounter Plan of Treatment Upcoming Encounters Date Type Department Care Team (Latest Contact Info) Description 05/28/2023 9:30 AM WASH TUB MACHINE OPERATOR Clinical Communication Virtual Review in [place], [place] 200 [place] [address] 05/30/2023 11:00 AM WASH TUB MACHINE OPERATOR Appointment Department of Laboratory Medicine and Pathology, [facility], in [address] [phone] Sole Read APRN, C.N.P., D.N.P. [address] [place] [phone] 05/30/2023 1:00 PM WASH TUB MACHINE OPERATOR Office Visit Division of Hematology in [place], [place] [address] [place] [phone] Sole Read APRN, C.N.P., D.N.P. [address] [place] [phone] 06/17/2023 10:30 AM WASH TUB MACHINE OPERATOR Clinical Communication Virtual Review in [place], [place] [address] [place] [address] 06/18/2023 2:00 PM WASH TUB MACHINE OPERATOR Office Visit Division of Endocrinology in [place], [place] [address] [place] [phone] Get Ragland APRN, C.N.P., D.N.P. [address] [place] [phone] 06/25/2023 10:30 AM CDT Appointment Department of Laboratory Medicine in [address] [phone] Bárbara Soto APRN, C.N.P. [address] [place] [phone] Scheduled Orders Name Type Priority Associated Diagnoses Orde r Schedule Alkaline Phosphatase Lab Routine Hodgkin Lymphoma Unspecified Lymph Nodes Of Axilla And Upper Limb (HCC) Expected: 05/30/2023, Expires: 11/27/2025 AST (Aspartate Aminotransferase) Lab Routine Hodgkin Lymphoma Unspecified Lymph Nodes Of Axilla And Upper Limb (HCC) Expected: 05/30/2023, Expires: 11/27/2025 Bilirubin, Total Lab Routine Hodgkin Lymphoma Unspecified Lymph Nodes Of Axilla And Upper Limb (HCC) Expected: 05/30/2023, Expires: 11/27/2025 Calcium, Total Lab Routine Hodgkin Lymphoma Unspecified Lymph Nodes Of Axilla And Upper Limb (HCC) Expected: 05/30/2023, Expires: 11/27/2025 CBC with Differential, Blood Lab Routine Hodgkin Lymphoma Unspecified Lymph Nodes Of Axilla And Upper Limb (HCC) Expected: 05/30/2023, Expires: 11/27/2025 Creatinine with Estimated GFR Lab Routine Hodgkin Lymphoma Unspecified Lymph Nodes Of Axilla And Upper Limb (HCC) Expected: 05/30/2023, Expires: 11/27/2025 LD (Lactate Dehydrogenase) Lab Routine Hodgkin Lymphoma Unspecified Lymph Nodes Of Axilla And Upper Limb (HCC) Expected: 05/30/2023, Expires: 11/27/2025 Potassium Lab Routine Hodgkin Lymphoma Unspecified Lymph Nodes Of Axilla And Upper Limb (HCC) Expected: 05/30/2023, Expires: 11/27/2025 Scheduled Referrals Name Type Priority Associated Diagnoses Order Schedule Hematology office visit (clinic) [place]; Lymphoma; General Outpatient Referral Routine Expected: 05/30/2023 (Approximate), Expires: 02/28/2024 documented as of this encounter Visit Diagnoses Diagnosis Hodgkin Lymphoma Unspecified Lymph Nodes Of Axilla And Upper Limb (HCC)- Primary documented in this encounter Additional Health Concerns Infection Onset Date Last Indicated Resolved Time Protective Environment 07/19/2022 07/19/2022 Assessment Noted Time PHQ-9 Depression Total Score: 0 01/01/20 16 12:53 PM CDT documented as of this encounter Care Teams Weight Recorder Relationship Specialty Start Date End Date Elsewhere, Pcp PCP - General Family Medicine 11/27/20 documented as of this encounter
--- OUTSIDE RECORDS SUMMARY | 2023-05-01 16:09 | XMS_ITS | Encounter Summary ---
Author Name Unknown Organization [facility] Address [address] [place] [phone] Care Team Providers Care Bed Manager Name Role Phone Elsewhere, Pcp Primary Care Provider Unavailabl e Encounter Details Date Type Department Care Team (Late st Contact Info) Description 09/05/2022 Orders Only Division of Endocrinology in [place], [place] [address] [place] [phone] Get Ragland, JASON, C.N.P., D.N.P. [address] [place] [phone] Social History Tobacco Use Types Packs/Day Years Used Date Smoking Tobacco: Never Smokeless Tobacco: Never Alcohol Use Standard Drinks/Week Comments Yes 2 (1 standard drink = 0.6 oz pur e alcohol) Humiliation, Afraid, Rape, and Kick questionnair e Answer Date Recorded Within the last year, have y ou been afraid of your partner or ex-partner? No 07/16/2022 Within the last year, have y ou been humiliated or emotionally abused in other ways by your partner or ex-partner? No Within the last year, have y ou been kicked, hit, slapped, or otherwise physically hurt by your partner or ex-partner? No 07/16/2022 Within the last year, have y ou been raped or forced to have any kind of sexual activity by your partner or ex-partner? No 07/16/2022 Social Connection and Isolat ion Panel [NHANES] Answer Date Recorded In a typical week, how many times do you talk on the phone with family, friends, or neighbors? More than three times a week 07/16/2022 How often do you get togethe r with friends or relatives? Twice a week 07/16/2022 How often do you attend chur or presybeterian services? Never 07/16/2022 Do you belong to any clubs o r organizations such as baptist groups, unions, fraternal or athletic groups, or [...] care, and heating? Not hard at all 07/16/2022 [facility] of Occupat ional Health - Occupational [...] the money to buy more. Never true 07/17/19 23 Within the past 12 months, t he food you bought just didn't last and you didn't have money to get more. Never true 07/16/2022 PRAPARE - Transportation Answer Date Re corded In the past 12 months, has l ack of transportation kept you from medical appointments or from getting medications? No 07/2022 In the past 12 months, has l ack of transportation kept you from meetings, work, or from getting things needed for daily living? No 07/16/2022 Housing Stability Vital Sign Answer Matias e Recorded In the last 12 months, was t here a time when you were not able to pay the mortgage or rent on time? No 07/16/2022 In the last 12 months, how many places have you lived? 1 07/16/2022 In the last 12 months, was t here a time when you did not have a steady place to sleep or slept in a custodial (including now)? No 07/16/2022 Nutrition Answer Date Recorded Nutrition: EVOO Fat Source Yes 07/16 On average, how many serving s of fruits and vegetables do you eat per day (serving size is equal to 1 cup or approximately the size of a tennis ball)? 2-3 07/16/2022 Dental Answer Date Recorded Dental: Regular Dentist Yes 06/01/19 21 Employment Answer Date Recorded Employment status Retired 07/16/2022 Education Answer Date Recorded What is the highest level of school you have completed or the highest degree you have received? Master's degree (e.g., MA, MS, Starla, MEd, CUTTER IN, DEBRA) 09/16/2018 Sex and Gender Information Value Date Recorded Sex Assigned at Male 10/08/2017 8:25 AM CDT Gender Identity Male 10/08/2017 8:25 AM CDT Sexual Orientation Straight 10/08/2017 8: 25 AM CDT documented as of this encounter Plan of Treatment Upcoming Encounters Date Type Department Care Team (Latest Contact Info) Description 05/28/2023 9:30 AM GREENHOUSE WORKER Clinical Communication Virtual Review in [place], [place] 200 [place] [address] 05/30/2023 11:00 AM GREENHOUSE WORKER Appointment Department of Laboratory Medicine and Pathology, [facility], in [place], [place] [address] [place] [phone] Sole Read APRN, C.N.P., D.N.P. [address] [place] [phone] 05/30/2023 1:00 PM GREENHOUSE WORKER Office Visit Division of Hematology in [place], [place] [address] [place] [phone] Sole Read APRN, C.N.P., D.N.P. [address] [place] [phone] 06/17/2023 10:30 AM GREENHOUSE WORKER Clinical Communication Virtual Review in [place], [place] 200 [place] [address] 06/18/2023 2:00 PM GREENHOUSE WORKER Office Visit Division of Endocrinology in [place], [place] [address] [place] [phone] Get Ragland APRN, C.N.P., D.N.P. [address] [place] [phone] 06/25/2023 10:30 AM CDT Appointment Department of Laboratory Medicine in [address] [phone] Bárbara Soto APRN, C.N.P. [address] [place] [phone] documented as of this encounter Visit Diagnoses Not on filedocumented in this encounter Additional Health Concerns Infection Onset Date Last Indicated Resolved Time Protective Environment 07/19/2022 07/19/2022 Assessment Noted Time PHQ-9 Depression Total Score: 0 01/01/20 16 12:53 PM CDT documented as of this encounter Care Teams Bed Manager Relationship Specialty Start Date End Date Elsewhere, Pcp PCP - General Family Medicine 11/27/20 documented as of this encounter
--- OUTSIDE RECORDS SUMMARY | 2023-05-01 16:09 | XMS_ITS | Encounter Summary ---
Author Name Unknown Organization [facility] Address [address] [place] [address] Care Team Providers Care Clerical Manager Name Role Phone Elsewhere, Pcp Primary Care Provider Unavailabl e Encounter Details Date Type Department Care Team (Late st Contact Info) Description 08/21/2022 Orders Only Division of Rheumatology in [place], [place] [address] [place] [phone] Bárbara Soto, FILENET DEVELOPER, C.N.P. [address] [place] [phone] Arthritis Psoriatic (HCC) (Primary Dx) Social History [...] How often do you attend chur or yazdanism services? Never 07/16/2022 Do you belong to any clubs o r organizations such as christianity groups, unions, fraternal or athletic groups, or [...] and heating? Not hard at all 07/16/2022 [facility] of Occupat ional Health - [...] place to sleep or slept in a skilled nursing (including now)? No 07/16/2022 Nutrition Answer Date [...] Master's degree (e.g., MA, MS, Starla, MEd, LOCUM TENENS PSYCHIATRIST, DEBRA) 09/16/2018 Sex and Gender Information Value Date Recorded Sex Assigned at Male 10/08/2017 8:25 AM CDT Gender Identity Male 10/08/2017 8:25 AM CDT Sexual Orientation Straight 10/08/2017 8: 25 AM CDT documented as of this encounter Plan of Treatment Upcoming Encounters Date Type Department Care Team (Latest Contact Info) Description 05/28/2023 9:30 AM MANAGER FIELD SERVICES Clinical Communication Virtual Review in [place], [place] [address] [place] [address] 05/30/2023 11:00 AM MANAGER FIELD SERVICES Appointment Department of Laboratory Medicine and Pathology, [facility], in [place], [place] [address] [place] [phone] Sole Read APRN, C.N.P., D.N.P. [address] [place] [phone] 05/30/2023 1:00 PM MANAGER FIELD SERVICES Office Visit Division of Hematology in [place], [place] [address] [place] [phone] Sole Read APRN, C.N.P., D.N.P. [address] [place] [phone] 06/17/2023 10:30 AM MANAGER FIELD SERVICES Clinical Communication Virtual Review in [place], [place] [address] [place] [address] 06/18/2023 2:00 PM MANAGER FIELD SERVICES Office Visit Division of Endocrinology in [place], [place] [address] [place] [phone] Get Ragland APRN, C.N.P., D.N.P. [address] [place] [phone] 06/25/2023 10:30 AM CDT Appointment Department of Laboratory Medicine in [address] [phone] Bárbara Soto APRN, C.N.P. [address] [place] [phone] documented as of this encounter Visit Diagnoses Diagnosis Arthritis Psoriatic (HCC)- Primary documented in this encounter Additional Health Concerns Infection Onset Date Last Indicated Resolved Time Protective Environment 07/19/2022 07/19/2022 Assessment Noted Time PHQ-9 Depression Total Score: 0 01/01/20 16 12:53 PM CDT documented as of this encounter Care Teams Clerical Manager Relationship Specialty Start Date End Date Elsewhere, Pcp PCP - General Family Medicine 11/27/20 documented as of this encounter
--- OUTSIDE RECORDS SUMMARY | 2023-05-01 16:09 | XMS_ITS | Encounter Summary ---
Author Name Unknown Organization [facility] Address [address] [place] [address] Care Team Providers Care Senior Analyst Name Role Phone Elsewhere, Pcp Primary Care Provider Unavailabl e Encounter Details Date Type Department Care Team (Latest Contact Info) Description 09/18/2022 11:55 AM CDT - 09/18/2022 11:59 PM CDT Hospital Encounter Department of Laboratory Medicine in [address] [phone] Bárbara Soto, JASON, C.N.P. 200 [place] [address] Medication Therapy Detention Not Anticoagulant Discharge Disposition: Home or Self Care Social [...] often do you attend chur ch or amish services? Never 07/16/2022 Do you belong to any clubs o r organizations such as uatsdin groups, unions, fraternal or athletic groups, or [...] your living situation today? I [facility] 09/19/2022 Education Answer Date Recorded What is the highest level of school you have completed or the highest degree you have received? Master's degree (e.g., MA, MS, Starla, MEd, DIPLOMATIC COURIER, DEBRA) 09/16/2018 Sex and Gender Information Value [...] 2,000 Units by mouth daily. 0 05/02/2014 furosemide (LASIX) 20 mg tablet TAKE 1 TABLET BY MOUTH EVERY DAY 90 tablet 3 06/27/2022 loperamide (IMODIUM A-D) 2 mg tablet Take 1 mg by mouth 2 (two) times a day as needed. 0 omeprazole (PriLOSEC) [address] capsule Take 20 mg by mouth as needed. 0 11/25/2011 sennosides-docusate sodium (Senna with Docusate Sodium) 8.6-50 mg per tablet Take 1 tablet by mouth at bedtime as needed. For constipation 0 10/04/2020 sildenafiL (VIAGRA) 50 mg tablet Take 1 tablet (50 mg total) by mouth daily as needed for erectile dysfunction. 20 tablet 2 05/22/2022 venlafaxine XR (EFFEXOR-XR) 150 mg 24 hr [...] A DAY 180 capsule 3 05/24/2022 03/18/2023 folic acid 1 mg tabletIndications:Ar thritis Psoriatic (HCC) TAKE 2 TABLETS BY MOUTH EVERY DAY 180 tablet 3 08/01/2021 09/26/2022 labetalol (NORMODYNE) 200 mg tablet Take 400 mg by mouth 3 (three) times a day. 2 tablets 3 times daily 10 02/26/2018 03/18/2023 losartan (COZAAR) 100 mg tablet Take 100 mg by mouth daily. 3 01/01/2018 03/18/2023 methotrexate 2.5 mg tabletIndications:Ar thritis Psoriatic (HCC) Take 7 tablets (17.5 mg total) by mouth once a week. Takes on . 84 tablet 3 10/11/2021 12/24/2022 mirtazapine (REMERON) 30 mg tablet Take 30 mg by mouth at bedtime. 0 03/18/2023 predniSONE (DELTASONE) 5 mg tabletIndications:Ar thritis Psoriatic (HCC) Take 1-4 tablets (5-20 mg total) by mouth as directed. 70 tablet 0 09/03/2022 11/25/2022 semaglutide (WEGOVY) 0.25 mg/0.5 mL pen injector injection Inject 0.25 mg under the skin every 7 (seven) days. 2 mL 0 09/05/2022 09/26/2022 semaglutide (WEGOVY) 0.5 mg/0.5 mL pen injector injection Inject 0.5 mg under the skin every 7 (seven) days. 2 mL 0 09/05/2022 09/26/2022 semaglutide (WEGOVY) 1 mg/0.5 mL pen injector injection Inject 1 mg under the skin every 7 (seven) days. 2 mL 0 09/05/2022 03/19/2023 semaglutide (Wegovy) 1.7 mg/0.75 mL pen injector injection Inject 1.7 mg under the skin every 7 (seven) days. 3 mL 0 09/05/2022 11/25/2022 documented as of this encounter Plan of Treatment Upcoming Encounters Date Type Department Care Team (Latest Contact Info) Description 05/28/2023 9:30 AM DIET TECH Clinical Communication Virtual Review in [address] [address] 05/30/2023 11:00 AM DIET TECH Appointment Department of Laboratory Medicine and Pathology, [facility], in [address] [phone] Sole Read APRN, C.N.P., D.N.P. [address] [place] [phone] 05/30/2023 1:00 PM DIET TECH Office Visit Division of Hematology in [address] [phone] Sole Read APRN, C.N.P., D.N.P. [address] [place] [phone] 06/17/2023 10:30 AM DIET TECH Clinical Communication Virtual Review in [place], [place] 200 [place] [address] 06/18/2023 2:00 PM DIET TECH Office Visit Division of Endocrinology in [place], [place] [address] [place] [phone] Get Ragland APRN, C.N.P., D.N.P. [address] [place] [phone] 06/25/2023 10:30 AM CDT Appointment Department of Laboratory Medicine in [address] [phone] Bárbara Soto APRN, C.N.P. [address] [place] [phone] documented as of this encounter Procedures Procedure Name Priority Date/Time Associated Diagnosis Comments CBC WITH DIFFERENTIAL, B Routine 09/18/2022 12:03 PM CDT Medication Therapy Detention Not Anticoagulant ASPARTATE AMINOTRANSFERASE (AST), S/P Routine 09/18/2022 12:03 PM CDT Medication Therapy Detention Not Anticoagulant CREATININE WITH EGFR, S/P Routine 09/18/2022 12:03 PM CDT Medication Therapy Composite Bond Technician Not Anticoagulant documented in this encounter Results * Creatinine with Estimated GFR (09/18/2022 12:03 PM CDT) Creatinine 1.04 0.74 - 1.35 mg/dL 09/18/2022 12:31 PM CDT CNFL Estimated GFR (eGFR) 80 >=60 mL/min/BSA 09/18/2022 12:31 PM CDT CNFL Comment: Estimated GFR calculated using the 2020 CKD_EPI creatinine equation. Blood (Blood, Venous) 09/18/2022 12:03 PM CDT 09/18/2022 12:04 PM CDT Bindu Sawant APRNN.P. [place] [address], [facility] [address] [address] * AST (Aspartate Aminotransferase) (09/18/2022 12:03 PM CDT) Aspartate Aminotransferase (AST), P 28 8 - 48 U/L 09/18/2022 12:31 PM CDT CNFL Blood (Blood, Venous) 09/18/2022 12:03 PM CDT 09/18/2022 12:04 PM CDT Bindu Sawant APRNN.P. LAB BLOOD ADD-ON Performing Organization Address [facility]/ZIP Co de Phone Number [address] [address], [place] [address] * (ABNORMAL) CBC with Differential, Blood (09/18/2022 12:03 PM CDT) Hemoglobin 14.5 13.2 - 16.6 g/dL 09/18/2022 12:12 PM CDT CNFL Hematocrit 43.9 38.3 - 48.6 % 09/18/2022 12:12 PM CDT CNFL Erythrocytes 4.57 4.35 - 5.65 x10(12)/ L 09/18/2022 12:12 PM CDT CNFL MCV 96.1 78.2 - 97.9 fL 09/18/2022 12:12 PM CDT CNFL RBC Distrib Width 14.1 11.8 - 14.5 % 09/18/2022 12:12 PM CDT CNFL Platelet Count 112(L) 135 - 317 x10(9)/L 09/18/2022 12:12 PM CDT CNFL Leukocytes 5.5 3.4 - 9.6 x10(9)/L 09/18/2022 12:12 PM CDT CNFL Neutrophils See manual differential 1.56 - 6.45 x10(9)/L 09/18/2022 12:27 PM CDT CNFL Comment: REVISED RESULTS ----PREVIOUSLY REPORTED ---- 4.17, Flagged as: Normal (Reported 09/18/2022 12:12) Lymphocytes CANCELED x10(9)/L 09/18/2022 12:27 PM CDT CNFL Comment: REVISED RESULTS ----PREVIOUSLY REPORTED ---- 0.85, Flagged as: Abnormal_Low (Reported 09/18/2022 12:12) Monocytes CANCELED x10(9)/L 09/18/2022 12:27 PM CDT CNFL Comment: REVISED RESULTS ----PREVIOUSLY REPORTED ---- 0.39, Flagged as: Normal (Reported 09/18/2022 12:12) Eosinophils CANCELED x10(9)/L 09/18/2022 12:27 PM CDT CNFL Comment: REVISED RESULTS ----PREVIOUSLY REPORTED ---- 0.12, Flagged as: Normal (Reported 09/18/2022 12:12) Basophils CANCELED x10(9)/L 09/18/2022 12:27 PM CDT CNFL Comment: REVISED RESULTS ----PREVIOUSLY REPORTED ---- <0.04, Flagged as: Normal (Reported 09/18/2022 12:12) Blood (Blood, Venous) 09/18/2022 12:03 PM CDT 09/18/2022 12:04 PM CDT Bárbara Soto APRN C.N.PRebecca LAB BLOOD ADD-ON [facility] [address] [place] [id number], [facility] CNFL [facility] in [address] [address] documented in this encounter Visit Diagnoses Diagnosis Medication Therapy Detention Not Anticoagulant documented in this encounter Additional Health Concerns Infection Onset Date Last Indicated Resolved Time Protective Environment 07/19/2022 07/19/2022 Assessment Noted Time PHQ-9 Depression Total Score: 0 01/01/20 16 12:53 PM CDT documented as of this encounter Care Teams Senior Analyst Relationship Specialty Start Date End Date Elsewhere, Pcp PCP - General Family Medicine 11/27/20 documented as of this encounter
--- OUTSIDE RECORDS SUMMARY | 2023-05-01 16:09 | XMS_ITS | Encounter Summary ---
Author Name Unknown Organization [facility] Address [address] [place] [address] Care Team Providers Care Double Surface Operator Name Role Phone Elsewhere, Pcp Primary Care Provider Unavailabl e Reason for Visit * Outpatient (Routine) - Closed Specialty Diagnoses / Procedures Referred By Nuvia de leon Referred To Contact Nutrition Diagnoses Obesity Body Mass Index 30-39.9 Adult Sole Read APRN, C.N.P., D.N.P. [address] [place] [phone] [facility] Referral ID Status Reason Start Date Expiration Date Visits Re quested Visits Authorized [id number] Closed 03/21/2022 03/21/2023 1 1 Encounter Details Date Type Department Care Team (Latest Contact Info) Description 09/05/2022 10:00 AM CDT Clinical Support Department of Nutrition and Diabetes Education in [place], [place] [address] [place] [phone] Sole Read APRN, C.N.P., D.N.P. [address] [place] [phone] Rachel Diggs M.S., RDN, LD [address] [place] [phone] Obesity Body Mass Index 30-39.9 Adult Social History Tobacco Use Types Packs/Day Years [...] any clubs o r organizations such as mu-ism groups, unions, fraternal or athletic groups, or [...] and heating? Not hard at all 07/16/2022 [facility] [place] [facility] Occupat ional Health - Occupational Stress [...] place to sleep or slept in a mcc (including now)? No 07/16/2022 Nutrition Answer Date [...] Master's degree (e.g., MA, MS, Starla, MEd, COMPUTER SCIENCE INTERN, DEBRA) 09/16/2018 Sex and Gender Information Value [...] - Inhaled Oxygen Concentration - - Weight - - Height 175.8 cm (5' 9.21) 09/05/2022 9:29 AM CD T Body Mass Index - - documented in this encounter Progress Notes * Rachel Diggs M.S., RDN, LD - 09/05/2022 10:00 AM CDT CHIEF COMPLAINT/REASON FOR VISIT Nutrition-Weight Management Consult Met with patient ASSESSMENT Food/Nutrition Related History Dieting experience: Some self-directed dieting in the past such as more salad and not eating after 6 pm. Eating environment: He does the cooking and grocery shopping. Restaurants occasionally on the weekend. Limited fast food. Typical Daily Intake Breakfast(9-10 am): 3-4 scrambled eggs, 2 pieces buttered toast, coffee with half and half Morning Snack: Usually nothing Noon Meal: Most days nothing. Some days meat & cheese sandwich, or yogurt with fruit and bran cereal Afternoon Snack: Usually nothing Evening meal (5-6 pm): Hand size portion meat - pork, chicken, beef - vegetable, salad or rice/potato Evening Snack (7-8 pm): Popcorn (bowl full), crackers, fruit, cheese Beverages: water (5-6 16 oz glasses of seltzer water), coffee Alcohol intake: 2-3 beers (Grain belt) most days, occasionally gin and tonic Physical activity: Get Ovalles reports arthritis in hands and ankles-pain if does much activity. He is fairly limited in activity. Weight History Ht Readings from Last 1 Encounters: 09/05/22 175.8 cm Wt Readings from Last 1 Encounters: 09/05/22 109 kg BMI Readings from Last 1 Encounters: 09/05/22 35.37 kg/m?? Estimation of Nutritional Needs 1800 calories for weight loss (MSJ + 20% - 500) NUTRITION DIAGNOSIS Overweight/Obesity related to imbalance between energy intake and energy expenditure as evidenced by patient's intake, activity report, and BMI > 30 Nutrition Prescription/Recommendation We discussed the following weight management strategies: Consistently consume 3 well-balanced mealseach day, aim not to skip meals, aim for home prepared meals, be mindful about snacking habits and portion sizes, read nutrition labels, limit foods and beverages with a high fat/added sugar content,follow a calorie deficit diet, consider tracking intake and activity, increase planned physical activity as able, maintain hydration status INTERVENTION Education: Weight Control See Patient Education Record for information regarding education materials covered today. MONITORING AND EVALUATION: Nutrition parameter to monitor: Weight Desired Outcome: establish healthy lifestyle changes; gradual weight reduction Patient Goal(s): 1. Eat 3 meals per day that are spaced out by 4-5 hours Each meal should contain at least 3 food groups (lean protein/low-fat dairy + fruit/vegetable + whole grain/starch) 2. Snacks should be portioned and purposeful 3. Consider reducing alcohol 4. Consider tracking intake a few days on Lose It fam for 1800 calories FOLLOW UP PLAN: Provided name and phone number if questions should arise Time spent with patient (minutes): 30 documented in this encounter Plan of Treatment Upcoming Encounters Date Type Department Care Team (Latest Contact Info) Description 05/28/2023 9:30 AM INSTALLER METAL FLOORING Clinical Communication Virtual Review in [place], [place] 200 [place] [address] 05/30/2023 11:00 AM INSTALLER METAL FLOORING Appointment Department of Laboratory Medicine and Pathology, [facility], in [place], [place] [address] [place] [phone] Sole Read APRN, C.N.P., D.N.P. [address] [place] [phone] 05/30/2023 1:00 PM INSTALLER METAL FLOORING Office Visit Division of Hematology in [place], [place] [address] [place] [phone] Sole Read APRN, C.N.P., D.N.P. [address] [place] [phone] 06/17/2023 10:30 AM INSTALLER METAL FLOORING Clinical Communication Virtual Review in [place], [place] 200 [place] [address] 06/18/2023 2:00 PM INSTALLER METAL FLOORING Office Visit Division of Endocrinology in [place], [place] [address] [place] [phone] Get Ragland APRN, C.N.P., D.N.P. [address] [place] [phone] 06/25/2023 10:30 AM CDT Appointment Department of Laboratory Medicine in [address] [phone] Bárbara Soto APRN, C.N.P. [address] [place] [phone] documented as of this encounter Visit Diagnoses Diagnosis Obesity Body Mass Index 30-39.9 Adult documented in this encounter Additional Health Concerns Infection Onset Date Last Indicated Resolved Time Protective Environment 07/19/2022 07/19/2022 Assessment Noted Time PHQ-9 Depression Total Score: 0 01/01/20 16 12:53 PM CDT documented as of this encounter Care Teams Double Surface Operator Relationship Specialty Start Date End Date Elsewhere, Pcp PCP - General Family Medicine 11/27/20 documented as of this encounter
--- OUTSIDE RECORDS SUMMARY | 2023-05-01 16:09 | XMS_ITS | Encounter Summary ---
Author Name Unknown Organization [facility] Address [address] [place] [address] Care Team Providers Care Boat Carpenter Name Role Phone Elsewhere, Pcp Primary Care Provider Unavailabl e Reason for Visit * Reason Comments Outpatient Infusion * Episode Based Medications (Routine) - Closed Specialty Diagnoses / Procedures Referred By Contac t Referred To Contact Diagnoses Arthritis Psoriatic (HCC) Bárbara Soto APRN, C.N.P. [address] [place] [phone] [facility] [address] [place] [phone] Referral ID Status Reason Start Date Expiration Date Visits Re quested Visits Authorized [id number] Closed 08/27/2021 08/27/2022 99 99 Encounter Details Date Type Department Care Team (Late st Contact Info) Description 08/28/2022 9:45 AM CDT Infusion Department of Infusion Therapy in [address] [phone] Bárbara Soto APRN, C.N.P. [address] [place] [phone] Arthritis Psoriatic (HCC) (Primary Dx) Social History [...] How often do you attend chur or quaker services? Never 07/16/2022 Do you belong to any clubs o r organizations such as jain groups, unions, fraternal or athletic groups, or [...] and heating? Not hard at all 07/16/2022 [facility] [place] of Occupat ional Health - Occupational Stress [...] place to sleep or slept in a [place] [facility] [place] (including now)? No 07/16/2022 Nutrition Answer Date [...] Master's degree (e.g., MA, MS, Starla, MEd, AIRPLANE PILOT CHIEF, DEBRA) 09/16/2018 Sex and Gender Information Value Date Recorded Sex Assigned at Male 10/08/2017 8:25 AM CDT Gender Identity Male 10/08/2017 8:25 AM CDT Sexual Orientation Straight 10/08/2017 8: 25 AM CDT documented as of this encounter Last Filed Vital Signs Vital Sign Reading Time Taken Comments Blood Pressure 119/64 08/28/2022 10:35 AM CDT Pulse 65 08/28/2022 10:35 AM CDT Temperature 36.2 ??C (97.2 ??F) 08/28/2022 9:47 AM CD T Respiratory Rate 18 08/28/2022 10:35 AM CDT Oxygen Saturation 95% 08/28/2022 9:47 AM CDT Inhaled Oxygen Concentration - - Weight - - Height - - Body Mass Index - - documented in this encounter Plan of Treatment Upcoming Encounters Date Type Department Care Team (Latest Contact Info) Description 05/28/2023 9:30 AM VESSEL TRAFFIC OFFICER Clinical Communication Virtual Review in [address] [address] 05/30/2023 11:00 AM VESSEL TRAFFIC OFFICER Appointment Department of Laboratory Medicine and Pathology, [facility], in [address] [phone] Sole Read APRN, C.N.P., D.N.P. [address] [place] [phone] 05/30/2023 1:00 PM VESSEL TRAFFIC OFFICER Office Visit Division of Hematology in [address] [phone] Sole Read APRN, C.N.P., D.N.P. [address] [place] [phone] 06/17/2023 10:30 AM VESSEL TRAFFIC OFFICER Clinical Communication Virtual Review in [address] [address] 06/18/2023 2:00 PM VESSEL TRAFFIC OFFICER Office Visit Division of Endocrinology in [place], [place] [address] [place] [phone] Get Ragland APRN, C.N.P., D.N.P. [address] [place] [phone] 06/25/2023 10:30 AM CDT Appointment Department of Laboratory Medicine in [address] [phone] Bárbara Soto APRN, C.N.P. [address] [place] [phone] documented as of this encounter Visit Diagnoses [...] mL/hr, Administer over 30 Minutes, Once, On Fri08/28/22 at 0945, For 1 dose, Do NOT shake. Use in-line filter. Do NOT refrigerate. New Bag 08/28/2022 10:00 AM CDT 218.75 mg 200 mL/hr sodium chloride 0.9 % injection 10 mL 10 mL, intravenous, As needed, line care, Starting on Fri08/28/22 at 0939 Given 08/28/2022 10:35 AM CDT 10 mL Given 08/28/2022 10:00 AM CDT 10 mL documented in this encounter Additional Health Concerns Infection Onset Date Last Indicated Resolved Time Protective Environment 07/19/2022 07/19/2022 Assessment Noted Time PHQ-9 Depression Total Score: 0 01/01/20 16 12:53 PM CDT documented as of this encounter Care Teams Boat Carpenter Relationship Specialty Start Date End Date Elsewhere, Pcp PCP - General Family Medicine 11/27/20 documented as of this encounter
--- OUTSIDE RECORDS SUMMARY | 2023-05-01 16:09 | XMS_ITS | Encounter Summary ---
Author Name Unknown Organization [facility] Address [address] [place] [address] Care Team Providers Care Woodworking Machine Offbearer Name Role Phone Elsewhere, Pcp Primary Care Provider Unavailabl e Reason for Referral * Outpatient (Routine) - Closed Specialty Diagnoses / Procedures Referred By Contac t Referred To Contact Diagnoses Dysfunction Erectile Procedures URO Penile US Iliana Phillips P.A.-C., M.S. [address] [place] [address] [facility] Referral ID Status Reason Start Date Expiration Date Visits Re quested Visits Authorized [id number] Closed 07/24/2022 07/24/2023 1 1 Reason for Visit * Outpatient (Routine) - Closed Specialty Diagnoses / Procedures Referred By Contac t Referred To Contact Urology Diagnoses Dysfunction Erectile Ok Padilla M.D. [address] [place] [address] [facility] Referral ID Status Reason Start Date Expiration Date Visits Re quested Visits Authorized [id number] Closed 05/22/2022 05/22/2023 1 1 Encounter Details Date Type Department Care Team (Latest Contact Info) Description 07/24/2022 10:30 AM CDT Comprehensive Visit Department of Urology in [place], [place] [address] [place] [address] Cruzito Barker M.D. [address] [place] [address] Dysfunction Erectile (Primary Dx) Social History Tobacco Use Types [...] week 07/16/2022 How often do you attend [facility] or [facility] services? Never 07/16/2022 Do you belong to any clubs o r organizations such as yarsani groups, unions, fraternal or athletic groups, or [...] and heating? Not hard at all 07/16/2022 [facility] - Occupational Stress Questionnaire Answer Date [...] place to sleep or slept in a half-way (including now)? No 07/16/2022 Nutrition Answer Date [...] Master's degree (e.g., MA, MS, Starla, MEd, DYE PADDER OPERATOR, DEBRA) 09/16/2018 Sex and Gender Information Value Date Recorded Sex Assigned at Male 10/08/2017 8:25 AM CDT Gender Identity Male 10/08/2017 8:25 AM CDT Sexual Orientation Straight 10/08/2017 8: 25 AM CDT documented as of this encounter H&P Notes * Iliana Phillips P.A.-C., M.S. - 07/24/2022 10:30 AM CDT SUBJECTIVE REQUESTING PROVIDER Ok Padilla M.D. REASON FOR CONSULT Erectile dysfunction HISTORY OF PRESENT ILLNESS Mr. Ovalles is a pleasant 67 y.o. male who presents for further evaluation and management of erectile dysfunction. Duration of symptoms: Several years Previous treatments: PDE5 inhibitors with suboptimal results Associated curvature: Yes, longstanding mild leftward curvature Erection quality: <6/10 Stability over time: Stable Risk factors for ED: Age, hypertension, hyperlipidemia, coronary artery disease Medications that may be contributing: Antihypertensives, Effexor Low libido: Yes Relationship status: . is not present today, but sounds very supportive ERECTILE DYSFUNCTION Erectile Dysfunction Intake Questionnaire: Do you have any difficulty obtaining or maintaining an erection satisfactory for sexual intercourse?: yes How many months or years have you noticed difficulties with erections?: 4 years How many times per month do you engage in sexual intercourse with a partner?: 0 How would you rate the hardness of your erection without any medications or supplements?: 2 = Penisis hard but not hard enough for penetration How many minutes can you maintain an erection that is strong enough to penetrate?: 15 Long enough for successful intercourse?: no How strong are your night-time or embossing machine operator erections?: 3 = Penis is hard enough for penetration but not completely hard Have you ever tried medications like Viagra, Levitra, Cialis, or Stendra?: yes How often are you currently using medications like Viagra, Levitra, Cialis, or Stendra?: Less than 1 time per month How many years ago did you first try medications like Viagra, Levitra, Cialis, or Stendra?: 2 How strong of an erection can you get with Viagra, Levitra, Cialis, or Stendra?: 3 = Penis is hard enough for penetration but not completely hard Have you ever, or do you currently use penile injection therapies?: no Have you ever or do you currently use a vacuum device or erection constriction ring to help with erections?: no Have you had your prostate removed (prostatectomy)?: no TESTOSTERONE Testosterone Intake Questionnaire: On a scale of 1-10, how strong is your sexual desire (libido)?: 1 Do you have any of the following symptoms (check all that apply)?: decreased erectile function, difficulty maintaining healthy weight and depression Do you have diabetes?: No Have you ever had your testosterone checked?: yes Do you remember if it was below 300 ng/dl?: Less than 300 ng/dl Have you previously used any of the following testosterone therapies?: Gel Are you currently receiving testosterone therapy?: yes What testosterone medicine are you currently taking?: Gel How long have you taken the testosterone medicine (if taking intermittently, for how many years have you been taking intermittently)?: 4 days Do you wish to maintain your fertility?: no PEYRONIE'S DISEASE [facility] URO PEYRONIE'S DISEASE INTAKE QUESTIONNAIRE SB: Do you have any penile curvature? (Does not include curvature which has been present lifelong): yes Which direction does it curve? (If multiple, get all that apply): Left How many degrees does it curve (estimated)?: 30 How long ago did you first notice any pain or curvature?: 10 years Do you recall experiencing any trauma (during sexual activity or otherwise) prior to development ofthe curvature?: no Do you experience any pain with erections?: yes Does the curvature prevent you from engaging in penetrative intercourse?: no Does the curvature cause your partner any pain during penetrative intercourse?: no Since you first noticed the curvature, has it improved, worsened, or stayed the same?: Unchanged If applicable, for how many months/years has the curvature remained stable (not increasing or decreasing)?: 10 years Have you experienced any penile shortening?: yes Number of inches shortened: 2 Have you tried or are currently taking any medications for Peyronie???s disease?: no Have you undergone any injection therapies (verapamil, interferon, Xiaflex) for Peyronie???s disease?: no Have you ever undergone surgery for Peyronie???s disease?: no How would you rate the hardness of your erection without any medications or supplements?: 2 = Penisis hard but not hard enough for penetration SEXUAL DYSFUNCTION AMB URO SEXUAL DYSFUNCTION INTAKE QUESTIONNAIRE SB: Do you have any complaints about orgasm or ejaculation?: yes Are you able to achieve an orgasm (reach climax)?: no Do you have fluid which leaves the penis with orgasm or climax?: yes Do you ever accidentally urinate when aroused or during orgasm or climax?: no Do you feel that you ejaculate (reach climax) too slowly or too quickly?: Not applicable PAST MEDICAL HISTORY Past Medical History: Diagnosis Date Anxiety Generalized Disorder Apnea Sleep Obstructive Cataract Concussion Loss Of Consciousness Unspecified Duration Initial Coronary Artery Disease (Unspecified) Depressive Disorder Other Specified Health Status Sleep Apnea Thromboembolism NOS 2002, 2014 Left calf Erectile dysfunction PAST SURGICAL HISTORY Past Surgical History: Procedure Laterality Date ABDOMINAL AORTIC ANEURYSM REPAIR ARTHRODESIS SUBTALAR FOOT - ANKLE Right 11/24/2019 Procedure: right subtalar joint arthrodesis, exostectomy lateral gutter, anterior ankle debridement, anterior ankle cheilectomy.; Surgeon: Curly Esparza M.D.; Location: [facility] OR ARTHROSCOPY WRIST Right 03/23/2018 Procedure: ARTHROSCOPY WRIST.; Surgeon: Jos Brotehrs M.D.; Location: [facility] OR BIOPSY LYMPH NODE - AXILLARY Right 05/23/2020 Procedure: BIOPSY LYMPH NODE AXILLARY.; Surgeon: Eva Alicea M.D.; Location: [facility] OR BIOPSY LYMPH NODE - AXILLARY Right 09/25/2020 Procedure: EXCISIONAL RIGHT AXILLARY LYMPH NODE BIOPSY.; Surgeon: Eva Alicea M.D.; Location: [facility] OR CARDIAC VALVE SURGERY 2002 aortic valve, replaced aortic arch with stent graft COLON SURGERY 2009 sigmoid resection for diverticuli CORONARY STENT PLACEMENT DESCENDING AORTIC ANEURYSM REPAIR 02/2015 EXCISION GANGLION OR MASS HAND Right 11/03/2017 Procedure: wrist partial denervation.; Surgeon: Jos Brothers M.D.; Location: [facility] OR EXTRACTION CATARACT WITH INSERTION INTRAOCULAR LENS Bilateral 2010 HERNIA REPAIR 07/2019 umbilical INJECTION STEROID Right 11/03/2017 Procedure: Injection Steroid.; Surgeon: Jos Brothers M.D.; Location: [facility] OR INTRA-OPERATIVE ULTRASONOGRAPHY Right 05/23/2020 Procedure: INTRA-OPERATIVE ULTRASONOGRAPHY.; Surgeon: Eva Alicea M.D.; Location: [facility] OR INTRA-OPERATIVE ULTRASONOGRAPHY N/A 09/25/2020 Procedure: INTRA-OPERATIVE ULTRASONOGRAPHY.; Surgeon: Eva Alicea M.D.; Location: [facility] OR ROTATOR CUFF REPAIR Left 2012 SINUS SURGERY VASECTOMY FAMILY HISTORY No family history on file SOCIAL HISTORY Social History Socioeconomic History Marital status: Spouse name: Not on file Number of children: Not on file Years of education: Not on file Highest education level: Master's degree (e.g., MA, MS, Starla, MEd, DYE PADDER OPERATOR, DEBRA) Occupational History Not on file Tobacco Use Smoking status: Never Smokeless tobacco: Never Vaping Use Vaping Use: never used Substance and Sexual Activity Alcohol use: Yes Alcohol/week: 2.0 standard drinks Types: 2 Cans of beer per week Drug use: Not Currently Types: Marijuana Comment: medical marijuana at hs Sexual activity: Yes Partners: Female control/protection: Vasectomy Other Topics Concern Not on file Social History Narrative Not on file Social Determinants of Health Financial Resource Strain: Low Risk Difficulty of Paying Living Expenses: Not hard at all Food Insecurity: No Food Insecurity Worried About Running Out of Food in the Last Year: Never true Ran Out of Food in the Last Year: Never true Transportation Needs: No Transportation Needs Lack of Transportation (Medical): No Lack of Transportation (Non-Medical): No Physical Activity: Insufficiently Active Days of Exercise per Week: 1 day Minutes of Exercise per Session: 30 min Stress: No Stress Concern Present Feeling of Stress : Only a little Social Connections: Moderately Integrated Frequency of Communication with Friends and Family: More than three times a week Frequency of Social Gatherings with Friends and Family: Twice a week Attends Anabaptist Services: Never Active Member of Clubs or Organizations: Yes Attends Club or Organization Meetings: More than 4 times per year Marital Status: Intimate Partner Violence: Not At Risk Fear of Current or Ex-Partner: No Emotionally Abused: No Physically Abused: No Sexually Abused: No Housing Stability: Low Risk Unable to Pay for Housing in the Last Year: No Number of Places Lived in the Last Year: 1 Unstable Housing in the Last Year: No ALLERGIES No Known Allergies MEDICATIONS Current Outpatient Medications: acetaminophen (TYLENOL) 500 mg tablet, Take 1,000 mg by mouth every 6 (six) hours as needed for pain., Disp: , Rfl: amLODIPine (NORVASC) 10 mg tablet, Take 10 mg by mouth daily., Disp: , Rfl: atorvastatin (LIPITOR) 40 mg tablet, TAKE 1 TABLET BY MOUTH EVERY DAY, Disp: 90 tablet, Rfl: 3 celecoxib (CeleBREX) 100 mg capsule, TAKE 1 CAPSULE BY MOUTH TWICE A DAY, Disp: 180 capsule, Rfl: 3 cholecalciferol (VITAMIN D3) 1,000 Unit capsule, Take 2,000 Units by mouth daily. , Disp: , Rfl: folic acid 1 mg tablet, TAKE 2 TABLETS BY MOUTH EVERY DAY, Disp: 180 tablet, Rfl: 3 furosemide (LASIX) 20 mg tablet, TAKE 1 TABLET BY MOUTH EVERY DAY, Disp: 90 tablet, Rfl: 3 labetalol (NORMODYNE) 200 mg tablet, Take 400 mg by mouth 3 (three) times a day. 2 tablets 3 times daily , Disp: , Rfl: 10 loperamide (IMODIUM A-D) 2 mg tablet, Take 1 mg by mouth 2 (two) times a day as needed., Disp: , Rfl: losartan (COZAAR) 100 mg tablet, Take 100 mg by mouth daily., Disp: , Rfl: 3 medical cannabis solution, Take 1 each by mouth at bedtime. THC component: 240 mg CBD component: trace mg, Disp: , Rfl: methotrexate 2.5 mg tablet, Take 7 tablets (17.5 mg total) by mouth once a week. Takes on ., Disp: 84 tablet, Rfl: 3 mirtazapine (REMERON) 15 mg tablet, Take 15 mg by mouth at bedtime., Disp: , Rfl: mirtazapine (REMERON) 30 mg tablet, Take 30 mg by mouth at bedtime., Disp: , Rfl: omeprazole (PriLOSEC) [address] capsule, Take 20 mg by mouth as needed., Disp: , Rfl: predniSONE (DELTASONE) 5 mg tablet, Take 1-4 tablets (5-20 mg total) by mouth as directed., Disp: 139 tablet, Rfl: 0 sennosides-docusate sodium (Senna with Docusate Sodium) 8.6-50 mg per tablet, Take 1 tablet by mouth at bedtime as needed. For constipation, Disp: , Rfl: sildenafiL (VIAGRA) 50 mg tablet, Take 1 tablet (50 mg total) by mouth daily as needed for erectiledysfunction., Disp: 20 tablet, Rfl: 2 traZODone (DESYREL) 50 mg tablet, Take 50 mg by mouth at bedtime., Disp: , Rfl: venlafaxine XR (EFFEXOR-XR) 150 mg 24 hr capsule, , Disp: , Rfl: venlafaxine XR (EFFEXOR-XR) 75 mg 24 hr capsule, Take 225 mg by mouth daily. , Disp: , Rfl: warfarin (Coumadin) 5 mg tablet, Take 1.5-2 tablets (7.5-10 mg total) by mouth daily. 10 mg on , , Sat. 7.5 mg all other days (Patient taking differently: Take 7.5-10 mg by mouth daily. 7.5 mg On Friday. 10 mg the other days.), Disp: , Rfl: REVIEW OF SYSTEMS Genitourinary: Positive for penile pain. Psychiatric/Behavioral: Positive for depression. OBJECTIVE PHYSICAL EXAM Constitutional: He is oriented to person, place, and time. He appears well-developed. HENT: Head: Normocephalic. Eyes: No scleral icterus. Pulmonary/Chest: Effort normal. Musculoskeletal: Normal gait noted with ambulation Neurological: He is alert and oriented to person, place, and time. Skin: No pallor. Psychiatric: He has a normal mood and affect. IIEF-15 Erectile Function:01/11 Orgasmic Function:05/24 Sexual Desire:10 [place] Satisfaction: 09/26 Overall satisfaction:05/24 Total Score:23/75 LABS Lab Results Component Value Date TESTOSTERONE 387 07/19/2022 TESTOSFREE 10.3 07/19/2022 Glucose: 109 Total cholesterol: 137 ASSESSMENT / PLAN #1 Erectile dysfunction It was my pleasure to meet with Mr. Ovalles in clinic today. We reviewed the natural history of erectile dysfunction, its progression with age, and its importance as a marker of underlying vascular disease. We reviewed potential contributing factors to the development of erectile dysfunction and discussed a stepwise approach to management. Treatment options discussed include: PDE5I (sildenafil, tadalafil, vardenafil, avanafil): Discussed that if a patient doesn't respond adequately to PDE5-inhibitors, or has bothersome side effects, we may consider trialing an alternativemedication. However, many patients will ultimately require a higher dose of, or no longer respond to, these medications. Treatment escalation is indicated in this setting. Common side effects include facial flushing, headache, rhinorrhea, indigestion/dyspepsia, muscle aches, changes in color vision, and light-headedness. Taking a PDE5-inhibitor is contraindicated if the patient is also taking a nitrogen containing medication such as nitroglycerin. The patient was informed of the importance of discussing this with his primary care provider and/or controller mechanic. ICI (intracavernosal injection of alprostadil, phentolamine, papaverine): Typically most effective of the medical treatment options. At one year, 40-70% of patients are still using ICI. Reasons to discontinue include lack of effect, lack of spontaneity, discomfort with the injection, or desire to trial other options. Pain with injection is typically mild and short lived, but on occasion, the medication may cause significant penile aching. This can be addressed by changing the concentration of the specific agents used, but may lead some patients to discontinue therapy. Patients are asked to rotate the site of injection to prevent scar tissue from building up at one site. In patients who are predisposed to form significant scarring on the penis in response to trauma, penile curvature or other shape changes may occur. If the patient is on anticoagulation, he would be at increased risk for hematoma formation at the site of injection. JOE (vacuum erection device): Typically the least natural and most tedious of all options listed above. However, it is an excellent option for some men and can be well tolerated. Also, it is a great way to get blood flow into the penis and promote penile physical therapy in an effort to preserve penile length. It can be used in combination with any of the medical therapies described above. IPP (inflatable penile prosthesis): The most effective of all the options listed above and has a very high patient and partner satisfaction rate, often exceeding 80-90% in published studies. This approach allows the patient to achieve a firm/rigid erection sufficient for penetration that lasts as long as he wants, whenever he wants. It is a surgery that requires general anesthesia and carries a 1-2% risk of infection, and 15-30% risk of mechanical failure at 10 years, requiring the device to bereplaced. Very pleasant 67 YO gentleman with comorbidities including cardiac disease, psoriatic arthritis, and Hodgkin's lymphoma in remission. He's failed PDE5 inhibitors, and is not interested in a penile implant. He elected to proceed with penile US to assess efficacy of penile injection therapy. He had an excellent response to 10 units of TriMix. His erection was so strong, I was unable to get any blood flow measurements on ultrasound. He required reversal with phenylephrine. He would like a prescription to use TriMix at home. We discussed possibly trying BiMix instead, but patient prefers TriMix. He will start at a lower dose of 5 units. He can try Sudafed, ice, or cold showers if he were to experience a prolonged erection, but knows to seek emergent care if this does not improve or resolve things. We discussed the role for intracavernosal injection therapy and indicated that the objective is to achieve a penetrative quality erection which lasts no longer than one hour in duration. If the erection were to remain firm for greater than one hour, the dose should be decreased with future injections. Additionally, if the erection were to remain firm for greater than three hours, the patient was encouraged to seek further care in the emergency department. During the initial phase of treatment with intracavernosal injections, the patient was encouraged to increase his dose by intervals of 5 units, up to a maximum of 100 units, to the desired effect. Once a stable dose is achieved, the patient was encouraged to draw up all syringes with the appropriate dose and freeze them for future use. This increases the longevity of the medicine and eliminates the need to freeze and thaw the full vialwith each administration. All questions were answered during our consultation. PLAN TriMix ICI Signed by: Iliana Phillips P.A.-C., M.S. 07/24/2022 10:55 AM CDTAnswers submitted by the patient for this visit: Men's Health - Erectile Function (Submitted on 07/19/2022) None: Yes documented in this encounter Plan of Treatment Upcoming Encounters Date Type Department Care Team (Latest Contact Info) Description 05/28/2023 9:30 AM ROUTE SALES DRIVER Clinical Communication Virtual Review in [address] [address] 05/30/2023 11:00 AM ROUTE SALES DRIVER Appointment Department of Laboratory Medicine and Pathology, [facility] in [address] [phone] Sole Read APRN, C.N.P., D.N.P. [address] [place] [phone] 05/30/2023 1:00 PM ROUTE SALES DRIVER Office Visit Division of Hematology in [address] [phone] Sole Read APRN, C.N.P., D.N.P. [address] [place] [phone] 06/17/2023 10:30 AM ROUTE SALES DRIVER Clinical Communication Virtual Review in [address] [address] 06/18/2023 2:00 PM ROUTE SALES DRIVER Office Visit Division of Endocrinology in [address] [phone] Get Ragland APRN, C.N.P., D.N.P. [address] [place] [phone] 06/25/2023 10:30 AM CDT Appointment Department of Laboratory Medicine in [address] [phone] Bárbara Soto APRN, C.N.P. [address] [place] [address] documented as of this encounter Results * GA DUP SCAN PENILE VESSELS (07/24/2022 1:30 PM CDT) Narrative Cruzito Barker M.D. - 07/24/2022 1:30 PM CDT Cruzito Barker M.D. ? 07/24/2022 ??4:30 PM URO Penile US Performed by: Cruzito Barker M.D. Authorized by: Iliana Phillips P.A.-CRebecca, M.S. Care team members present 1. Cruzito Barker M.D. 2. Iliana Phillips P.A.-C., M.S. 3. Nadeen Trivedi R.N. PROCEDURE DETAILS Ultrasound image guidance used to localize target, identify at risk structures, and dynamically used to direct therapy to the target. Image(s) acquired and saved. CONSENT Consent obtained: verbal Consent given by: patient The benefits, risks and alternatives to the procedure and the potential need for sedation or anesthesia as well as the names, roles, and responsibilities of healthcare team members performing significant interventional tasks were discussed with the patient and/or decision maker. UNIVERSAL PROTOCOL All relevant documentation and testing were reviewed and available. All required blood products, implants, devices and or special equipment were made available as applicable. Pre-procedure verification was conducted and the correct site was marked if required. A fire risk assessment was done as applicable. The procedural time-out to verify correct patient, correct side/site, and procedure was conducted prior to performing the procedure and confirmed in a procedural pause. PRE-PROCEDURE DETAILS Procedure purpose: diagnostic Appropriate hand hygiene, gown, cap, mask, protective eyewear, sterile gloves, skin preparation, sterile drape, and strict aseptic technique were utilized as applicable for the procedure. SEDATION / ANESTHESIA Anesthesia method: none POST-PROCEDURE DETAILS ?? Procedure completed successfully: yes ?? Complications: no apparent complications Comments CHIEF COMPLAINT/PURPOSE OF VISIT Penile Ultrasound Penile Measurements Performed By: Nadeen Trivedi RN Stretched Penile Length: 16 cm (to tip) ? 12.5 cm (to santiago) MEDICATIONS: ? AN1 - Papaverine (30 mg), Alprostadil (10 mcg), Phentolamine (1 mg) ? Administered 0.1 mL's, 0.9 mL's wasted INJECTIONS: ? Number of injections: 1 ? Amount: 0.1 ml ? Patient assessment of erection quality: 04/23 ? Clinician assessment: 11/21 Phenylephrine Administered was administered ?? IMPRESSION/REPORT/PLAN CURVATURE: Primary Curvature - Direction: N/A ; Amount - Secondary Curvature - Direction: N/A ; Amount - Location: N/A Distance of plaque from santiago: - cm, ?? From tip - cm Congenital Penile Deviation: No ? Other Deformity: N/A Indentation: No N/A Hourglass: No N/A; ? Plaque visualized: No ? Calcified: no ? Buckling: N/A VASCULAR ASSESSMENT: Right peak systolic velocity:-- cm/s Right end diastolic velocity: -- cm/s Right resistive index: -- Left peak systolic velocity: > 25cm/s Left end diastolic velocity: -17.63 cm/s Left resistive index: > 1 Number of Films Obtained: 1 Additional Notes: Unable to obtain any arterial doppler signal on the right due to rigidity of erection / phase of erection; IMPRESSION: Normal penile vascular hemodynamics A portion of this note was documented by Nadeen Trivedi ??RN on behalf of Iliana Phillips PA-C / Dr. Agustin Barker who performed / interpreted the penile ultrasound. ?? Iliana Phillips P.A.-C., M.S. UROLOGY [facility] documented in this encounter Visit Diagnoses Diagnosis Dysfunction Erectile- Primary Priapism- Primary Dysfunction Erectile documented in this encounter Additional Health Concerns Infection Onset Date Last Indicated Resolved Time Protective Environment 07/19/2022 07/19/2022 Assessment Noted Time PHQ-9 Depression Total Score: 0 01/01/20 16 12:53 PM CDT documented as of this encounter Care Teams Woodworking Machine Offbearer Relationship Specialty Start Date End Date Elsewhere, Pcp PCP - General Family Medicine 11/27/20 documented as of this encounter
--- OUTSIDE RECORDS SUMMARY | 2023-05-01 16:09 | XMS_ITS | Encounter Summary ---
Author Name Unknown Organization [facility] Address [address] [place] [address] Care Team Providers Care Route Supervisor Name Role Phone Elsewhere, Pcp Primary Care Provider Unavailabl e Reason for Visit * Outpatient (Routine) - Closed Specialty Diagnoses / Procedures Referred By Nuvia de leon Referred To Contact Diagnoses Dysfunction Erectile Procedures URO Penile US Iliana Phillips P.A.-C., M.S. [address] [place] [phone] [facility] Referral ID Status Reason Start Date Expiration Date Visits Re quested Visits Authorized [id number] Closed 07/24/2022 07/24/2023 1 1 Encounter Details Date Type Department Care Team (Latest Contact Info) Description 07/24/2022 1:30 PM CDT Procedure visit Department of Urology in [place], [place] [address] [place] [phone] Cruzito Barker M.D. [address] [place] [phone] Priapism (Primary Dx); Dysfunction Erectile Social History Tobacco Use Types Packs/Day Years [...] week 07/16/2022 How often do you attend [facility] or rastafarian services? Never 07/16/2022 Do you belong to any clubs o r organizations such as anabaptism groups, unions, fraternal or athletic groups, or [...] at all 07/16/2022 [facility] Occupat ional Health - Occupational Stress [...] place to sleep or slept in a fci (including now)? No 07/16/2022 Nutrition Answer Date [...] have received? Master's degree (e.g., MA, MS, [employer], MEd, SALES AND SERVICE AGENT, DEBRA) 09/16/2018 Sex and Gender Information Value Date Recorded Sex Assigned at Male 10/08/2017 8:25 AM CDT Gender Identity Male 10/08/2017 8:25 AM CDT Sexual Orientation Straight 10/08/2017 8: 25 AM CDT documented as of this encounter Last Filed Vital Signs Vital Sign Reading Time Taken Comments Blood Pressure 140/80 07/24/2022 12:37 PM CDT Pulse 62 07/24/2022 12:37 PM CDT Temperature - - Respiratory Rate - - Oxygen Saturation - - Inhaled Oxygen Concentration - - Weight - - Height - - Body Mass Index - - documented in this encounter Patient Instructions * Patient Instructions* Nadeen Trivedi R.N. - 07/24/2022 1:30 PM CDT mPost- Penile Ultrasound and Curvature Assessment Instructions after receiving penile injection medication to induce erection PRIOR TO LEAVING (IMPORTANT): Prior to leaving the clinic, your erection should soft enough where it would not be sufficient to have penetrative intercourse. If you continue to experience a rigid erection 2 hours after the procedure, you are requested to return to the front loader residential driver ([address]), where they will direct you to a patient room. You will then be re-assessed and possibly given medicines to help bring the erection down. It is very common to have a persistent erection after this procedure, and therefore it is importantto assure that the erection becomes soft before returning home. If you have any question whether ornot the erection is soft enough, please return to the front loader residential driver to be checked in for an evaluation. GENERAL: It is common to experience penile soreness and/or bruising for several days after the procedure. If the tenderness is bothersome, you may apply an icepack to the penis, although this should not directly contact the penis to avoid potential over cooling. You should continue to monitor the penis for several days after the procedure. Although very rare, the presence of worsening pain, redness, fevers, or drainage from the skin may signify an infection which may require further treatments. HOME FOLLOW-UP: If you experience a return of a firm erection (sufficient to have penetrative intercourse) which lasts longer than three hours after returning home, you should seek further care. If this is on the day of the procedure and during normal business hours (8-4 PM), please call [phone]. If this isafter hours, please go to your local emergency department. Failure to seek treatment for this condition can result in permanent erectile dysfunction. CONTACT INFORMATION: If you have any questions relating to your procedure, please call during normal business hours. Emergency questions or concerns after hours can be addressed by calling and asking to speak with the urology resident control systems designer. documented in this encounter Progress Notes * Nadeen Trivedi R.N. - 07/24/2022 1:30 PM CDT Patient has priapism post Trimix medication administration. Iliana Phillips PA-C ordered Phenylephrine 500 mcg (500 mcg/mL vial) intracorporeal injection to penile shaft, was given once every 10 minutes for a total of 2 injections. Patient was instructed to return in 1 hour of erection remains firm enough for penetration. documented in this encounter Procedure Notes * Cruzito Barker M.D. - 07/24/2022 1:30 PM CDTAssociated Order(s): URO Penile US Pre-Procedure Diagnose(s): Dysfunction Erectile Post-Procedure Diagnose(s): Dysfunction Erectile URO Penile US Performed by: Cruzito Barker M.D. Authorized by: Iliana Phillips P.A.-C., M.S. Care team members present 1. Cruzito [...] / ANESTHESIA Anesthesia method: none POST-PROCEDURE DETAILS Procedure completed successfully: yes Complications: no apparent complications Comments CHIEF COMPLAINT/PURPOSE OF VISIT Penile Ultrasound Penile Measurements Performed By: Nadeen Trivedi RN Stretched Penile Length: 16 cm (to tip) 12.5 cm (to santiago) MEDICATIONS: AN1 - Papaverine (30 mg), Alprostadil (10 mcg), Phentolamine (1 mg) Administered 0.1 mL's, 0.9 mL's wasted INJECTIONS: Number of injections: 1 Amount: 0.1 ml Patient assessment of erection quality: 04/23 Clinician assessment: 11/21 Phenylephrine Administered was administered IMPRESSION/REPORT/PLAN CURVATURE: Primary Curvature - Direction: N/A ; Amount - Secondary Curvature - Direction: N/A ; Amount - Location: N/A Distance of plaque from santiago: - cm, From tip - cm Congenital Penile Deviation: No Other Deformity: N/A Indentation: No N/A Hourglass: No N/A; Plaque visualized: No Calcified: no Buckling: N/A VASCULAR ASSESSMENT: Right peak systolic [...] this note was documented by Nadeen Trivedi RN on behalf of Iliana Phillips PA-C / Dr. Agustin Barker who performed / interpreted the penile ultrasound. documented in this encounter Plan of Treatment Upcoming Encounters Date Type Department Care Team (Latest Contact Info) Description 05/28/2023 9:30 AM CHAIR CAR ATTENDANT Clinical Communication Virtual Review in [place], [place] [address] [place] [address] 05/30/2023 11:00 AM CHAIR CAR ATTENDANT Appointment Department of Laboratory Medicine and Pathology, [facility] in [place], [place] [address] [place] [phone] Sole Read APRN, C.N.P., D.N.P. [address] [place] [phone] 05/30/2023 1:00 PM CHAIR CAR ATTENDANT Office Visit Division of Hematology in [place], [place] [address] [place] [phone] Sole Read APRN, C.N.P., D.N.P. [address] [place] [phone] 06/17/2023 10:30 AM CHAIR CAR ATTENDANT Clinical Communication Virtual Review in [place], [place] [address] [place] [address] 06/18/2023 2:00 PM CHAIR CAR ATTENDANT Office Visit Division of Endocrinology in [place], [place] [address] [place] [phone] Get Ragland APRN, C.N.P., D.N.P. [address] [place] [phone] 06/25/2023 10:30 AM CDT Appointment Department of Laboratory Medicine in [address] [phone] Bárbara Soto APRN, C.N.P. [address] [place] [phone] documented as of this encounter Procedures Procedure Name Priority Date/Time Associated Diagnosis Comments WA DUP SCAN PENILE VESSELS Routine 07/24/2022 1:30 PM CDT Dysfunction Erectile documented in this encounter Results * WA DUP SCAN PENILE VESSELS (07/24/2022 1:30 PM CDT) Narrative Cruzito Barker M.D. - 07/24/2022 1:30 PM CDT Cruzito Barker M.D. ? 07/24/2022 ??4:30 PM URO Penile US Performed by: Cruzito Barker M.D. Authorized by: Iliana Phillips P.A.-C., M.S. Care team members present 1. Cruzito Barker M.D. 2. Iliana Phillips P.A.-C., M.S. 3. Nadeen Trivedi, Jose Juan.[place]. PROCEDURE DETAILS Ultrasound image guidance used to [...] documented in this encounter Visit Diagnoses Diagnosis Priapism- Primary Dysfunction Erectile documented in this encounter Administered Medications Inactive Administered Medications - up to 3 most recent administrations Medication Order MAR Action Action Date Dose Rate Site vautcpumds-rasqomyiusvk-hhqcxkks dil (TRIPLE AGENT AN1) 30 mg-1 mg-10 mcg/mL injection 0.1 mL 0.1 mL, intracavernosal, Once, On Fri07/24/22 at 1200, For 1 dose, Inject 0.1 mL intracavernosal, may increase as directed to achieve desired effect. Not to exceed 1 mL. For intracavernosal use only. Protect from light. Given 07/24/2022 12:12 PM CDT 0.1 mL phenylephrine injection dilution 1,000 mcg 1,000 mcg, intracavernosal, Once, On Fri07/24/22 at 1245, For 1 dose, Administer 2 mL (1000 mcg) per provider. Given 07/24/2022 12:31 PM CDT 1,000 mcg documented in this encounter Additional Health Concerns Infection Onset Date Last Indicated Resolved Time Protective Environment 07/19/2022 07/19/2022 Assessment Noted Time PHQ-9 Depression Total Score: 0 01/01/20 16 12:53 PM CDT documented as of this encounter Care Teams Route Supervisor Relationship Specialty Start Date End Date Elsewhere, Pcp PCP - General Family Medicine 11/27/20 documented as of this encounter
--- OUTSIDE RECORDS SUMMARY | 2023-05-01 16:09 | XMS_ITS | Encounter Summary ---
Author Name Unknown Organization [facility] Address [address] [place] [address] Care Team Providers Care Upholstery Mechanic Name Role Phone Elsewhere, Pcp Primary Care Provider Unavailabl e Encounter Details Date Type Department Care Team (Late st Contact Info) Description 09/03/2022 Orders Only Division of Rheumatology in [place], [place] [address] [place] [phone] Bárbara Soto, [employer]ODUCTS MAKER, C.N.P. [address] [place] [phone] Arthritis Psoriatic (HCC) Social History Tobacco Use Types Packs/Day Years [...] How often do you attend chur or rastafari services? Never 07/16/2022 Do you belong to any clubs o r organizations such as islam groups, unions, fraternal or athletic groups, or [...] and heating? Not hard at all 07/16/2022 [facility] ional [facility] - [...] place to sleep or slept in a prison (including now)? No 07/16/2022 Nutrition Answer Date [...] Master's degree (e.g., MA, MS, Starla, MEd, SECTION CREWS ACTIVITIES CLERK, DEBRA) 09/16/2018 Sex and Gender Information Value Date Recorded Sex Assigned at Male 10/08/2017 8:25 AM CDT Gender Identity Male 10/08/2017 8:25 AM CDT Sexual Orientation Straight 10/08/2017 8: 25 AM CDT documented as of this encounter Plan of Treatment Upcoming Encounters Date Type Department Care Team (Latest Contact Info) Description 05/28/2023 9:30 AM WINDOWS SYSTEM ADMIN Clinical Communication Virtual Review in [place], [place] [address] [place] [address] 05/30/2023 11:00 AM WINDOWS SYSTEM ADMIN Appointment Department of Laboratory Medicine and Pathology, [facility], in [place], [place] [address] [place] [phone] Sole Read APRN, C.N.P., D.N.P. [address] [place] [phone] 05/30/2023 1:00 PM WINDOWS SYSTEM ADMIN Office Visit Division of Hematology in [place], [place] [address] [place] [phone] Sole Read APRN, C.N.P., D.N.P. [address] [place] [phone] 06/17/2023 10:30 AM WINDOWS SYSTEM ADMIN Clinical Communication Virtual Review in [place], [place] [address] [place] [address] 06/18/2023 2:00 PM WINDOWS SYSTEM ADMIN Office Visit Division of Endocrinology in [place], [place] [address] [place] [phone] Get Ragland APRN, C.N.P., D.N.P. [address] [place] [phone] 06/25/2023 10:30 AM CDT Appointment Department of Laboratory Medicine in [address] [phone] Bárbara Soto APRN, C.N.P. [address] [place] [phone] documented as of this encounter Visit Diagnoses Diagnosis Arthritis Psoriatic (HCC) documented in this encounter Additional Health Concerns Infection Onset Date Last Indicated Resolved Time Protective Environment 07/19/2022 07/19/2022 Assessment Noted Time PHQ-9 Depression Total Score: 0 01/01/20 16 12:53 PM CDT documented as of this encounter Care Teams Upholstery Mechanic Relationship Specialty Start Date End Date Elsewhere, Pcp PCP - General Family Medicine 11/27/20 documented as of this encounter
--- OUTSIDE RECORDS SUMMARY | 2023-05-01 16:09 | XMS_ITS | Encounter Summary ---
Author Name Unknown Organization [facility] Address [address] [place] [address] Care Team Providers Care Job Coach Name Role Phone Elsewhere, Pcp Primary Care Provider Unavailabl e Reason for Referral * Outpatient (Routine) - Closed Specialty Diagnoses / Procedures Referred By Nuvia t Referred To Contact Endocrinology Diagnoses Obesity Body Mass Index 30-39.9 Adult Sleep Apnea Hypertension Essential Primary Get Ragland APRN, C.N.P., D.N.P. [address] [place] [address] [facility] Referral ID Status Reason Start Date Expiration Date Visits Re quested Visits Authorized [id number] Closed 09/05/2022 09/04/2025 1 1 Reason for Visit * Outpatient (Routine) - Closed Specialty Diagnoses / Procedures Referred By Contdiana t Referred To Contact Endocrinology Diagnoses Obesity Body Mass Index 30-39.9 Adult Sole Read APRN, C.N.P., D.N.P. [address] [place] [address] [facility] Referral ID Status Reason Start Date Expiration Date Visits Re quested Visits Authorized [id number] Closed 03/21/2022 03/21/2023 1 1 Encounter Details Date Type Department Care Team (Latest Contact Info) Description 09/05/2022 8:00 AM CDT Comprehensive Visit Division of Endocrinology in [place], [place] [address] [place] [address] Get Ragland APRN, C.N.P., D.N.P. [address] [place] [address] Obesity Body Mass Index 30-39.9 Adult (Primary [...] often do you attend chur ch or nondenominational services? Never 07/16/2022 Do you [...] and heating? Not hard at all 07/16/2022 [facility] of Occupat ional Health - Occupational Stress [...] place to sleep or slept in a [facility] (including now)? No 07/16/2022 Nutrition Answer Date [...] Master's degree (e.g., MA, MS, Starla, MEd, SALT REFINER, DEBRA) 09/16/2018 Sex and Gender Information Value [...] - Inhaled Oxygen Concentration - - Weight 109 kg (240 lb 15.4 oz) 09/05/2022 7:58 A M CDT Height 175.8 cm (5' 9.21) 09/05/2022 7:58 AM CD T Body Mass Index 35.37 09/05/2022 7:58 AM CDT documented in this encounter Consult Notes * Get Ragland APRN, C.N.P., D.N.P. - 09/05/2022 8:00 AM CDT SUBJECTIVE REASON FOR VISIT Obesity Consultation HISTORY OF PRESENT ILLNESS Get presents to bariatric endocrinology today to discuss weight management options, referred by Sole Read APRN, C.N.P., D.N.P.. Responses from our weight management questionnaire that guided today's discussion are below, which review his typical dietary habits, structure of meals, physical activity habits, and self-monitoringaccountability efforts, habits that are beneficial or detrimental toward efforts at weight loss, rat ionale for eating, and motivation for changing lifestyle behaviors. Question 08/31/2022 8:06 PM CDT - Filed by Patient Weight History How old were you when you first became overweight? 40-62 years old What is the most you have ever weighed in pounds? 244 How old were you when you weighed this much? 66 Can you identify significant life events when you gained weight (i.e., , menopause, new job, etc.)? No What is the least you have weighed in pounds since 20 years of age? 185 How old were you when you weighed this much? 23 How long did you maintain that weight (e.g., months/years)? 6 months What did you weigh (if not applicable, leave blank): Graduating high school? 175 On union/wedding day 190 What age were you on union/wedding day? 29 One year ago? 228 Three months ago? 238 Today? 242 Weight-Related Complications Indicate which of the following weight-related conditions you are experiencing. High blood pressure(hypertension) High cholesterol (hyperlipidemia) Obstructive sleep apnea (SARITA) or difficulty sleeping Snoring Joint pain Family Overweight less than 20 pounds None Overweight 20 to 50 pounds None Overweight more than 50 pounds None Past and Current Weight Control Measures Have you dieted on your own? Yes previously Please explain how you have dieted on your own. Heavy on salads, no food after 6pm How many pounds did you lose dieting on your own? 5 How many pounds did you regain? 5 Have you used any commercial weight loss plan/system (i.e., Weight Watchers, Overeaters Anonymous, Atkins, other, etc.)? No previously No currently Have you had any weight loss surgeries? No previously No currently Have you ever used or engaged in the following to control your weight: Caffeine, energy drinks orpills Water pills Vomiting Laxatives Prolonged fasting (greater than 24 hours) Other No previously No currently Have you ever been prescribed medication to help control your weight (i.e., orlistat [Gelacio, XenicaI], sibutramine [Meridia], phentermine, other)? If yes, briefly explain. No previously No currently Nutritional Supplements Do you take nutritional supplements? No Nutrition Rankings Does eating in response to stress interfere with your ability to change your diet? Yes Does eating in response to boredom interfere with your ability to change your diet? Yes Does not feeling satisfied after meals interfere with your ability to change your diet? Yes Does experiencing excessive cravings interfere with your ability to change your diet? Yes Does experiencing excessive hunger interfere with your ability to change your diet? Yes Physical Activity Do you regularly exercise (i.e., go for walks, go jogging, go to a health club, go swimming)? No Do you often stay active doing other things (i.e., your job, yard work, farming, etc.)? Yes Please describe what you do, how often, and for how long. Daily, on the go 1-2hrs. What do you feel are the primary factors limiting you from doing more physical activity (check all that apply)? Pain (joint, nerve) during or after physical activity Too tired/fatigued Have you used an activity tracking device? No Have you used a diet or diet/activity tracking fam? No How often do you consume beer, wine, or liquor (1 serving) during a usual week? 7 How often do you consume sugary beverages (fruit juice, soda, sweetened coffee beverages, sweetenedtea, etc.) during a usual week? 0 How many meals do you consume per week that are prepared outside of the home (fast food, restaurants, gas stations, etc.) 3 How many times per week do you eat sweets like cookies, ice cream, candy? 3 Psychological History and Rankings On a scale from 0 to 10, where 0 is not at all important and 10 is very important, how important isit for you to lose weight right now? (range: 0 - 10) 9 On a scale of 0 to 10, where 0 is not at all confident and 10 is very confident, how confident are you that you can change your eating habits to successfully manage your weight? (range: 0 - 10) 4 On a scale of 0 to 10, where 0 is not at all confident and 10 is very confident, how confident are you that you can have a physically active lifestyle (30 minutes of physical activity on most days ofthe week)? (range: 0 - 10) 4 Within the last 6 months, have you been under the care of a mental health provider? No In your lifetime, have you been to the emergency department, or stayed overnight in the hospital for mental health reasons Yes Have you been diagnosed with the following: Depression Anxiety Additional weight history: Admits to a slow steady weight gain throughout his adult life. Denies any particular points in lifethat have caused weight gain. Weight loss attempts: Self directed dieting efforts have been overall unsuccessful with nursing home sustainable weight loss. Minimal success with changing eating patterns have been experienced thus far. No commercial programs have been attempted such as Weight Watchers, NutriSystem, or MediFast. Weight loss pharmacologic attempts: None CURRENT DIETARY HABITS Question: Breakfast Answer: 4 scrambled eggs, 2 pieces buttered toast Question: Morning Snack Answer: Usually nothing Question: Noon Meal Answer: Most days nothing. Some days meet & cheese sandwich, or yogurt with fruit and bran cereal Question: Afternoon Snack Answer: Usually nothing Question: Evening Meal Answer: Hand size portion meat - pork, chicken, beef - vegetable, salad or rice Question: Evening Snack Answer: Popcorn, crackers Question: What are three of your most frequently consumed beverages? Answer: Coffee, water, beer Question: How much fluid do you drink in a day? (One cup is 8 ounces) Answer: 61-70 ounces Has about 7 servings of alcohol per week. Eats outside the home about 3 times weekly. Feels like portions may be a bit large, but his alcohol is admittedly a source of excess calories. 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 Still enjoys huntingand fishing. Activity Tracker Use: no Barriers to physical activity: psoriatic arthritis, which limits the time he is able to do activityfor; fatigue Pertinent review of systems otherwise grossly negative. The following portions of the patient's history were reviewed and updated as appropriate: visit questionnaire, allergies, current medications, family history, medical history, social history, surgical history, and problem list. OBJECTIVE PHYSICAL EXAM General: Overweight, not cushingoid. No acute distress. Lungs: Breathing unlabored. Gait: Able to rise and walk without difficulty. Mentation: Normal orientation, judgment, and mood. Neuro: Balance normal. VITAL SIGNS There were no vitals filed for this visit. ASSESSMENT / PLAN #1 Obesity Body Mass Index 30-39.9 Adult - Endocrinology - Weight management consult (clinic) #2 Sleep Apnea #3 Hypertension Essential Primary Other orders - semaglutide (WEGOVY) 0.25 mg/0.5 mL pen injector injection; Inject 0.25 mg under the skin every 7(seven) days., Starting [facility] 09/05/2022, Normal - semaglutide (WEGOVY) 0.5 mg/0.5 mL pen injector injection; Inject 0.5 mg under the skin every 7 (seven) days., Starting [facility] 09/05/2022, Normal - semaglutide (WEGOVY) 1 mg/0.5 mL pen injector injection; Inject 1 mg under the skin every 7 (seven) days., Starting [facility] 09/05/2022, Normal - semaglutide (Wegovy) 1.7 mg/0.75 mL pen injector injection; Inject 1.7 mg under the skin every 7 (seven) days., Starting [facility] 09/05/2022, Normal - Endocrinology office visit (clinic); Future; Expected date: 12/06/2022 We discussed the available interventions for weight related issues with the treatment and management of overweight and obesity. The foundation of any successful weight loss program includes behavioral and lifestyle modifications, coming in the form of changes pertaining to food choices and maximizing efforts at increasing daily activity. Depending on the intensity of medical intervention, we require engagement with either our Dietitians and/or Behavioral Psychology department PRIOR to starting medical management for weight loss. Another option that [facility] offers are individual offerings through our [facility]. Structured programs outside of [facility] exist as well which can also certainlyaid in weight loss efforts. The next option would be to begin a medication to aid in weight loss efforts. Certainly these medications do not produce weight loss alone, and we require documented efforts to improve of the behaviors at home in conjunction with the use of these to maximize the benefit. There is a risk of being onthese medications without losing weight as their effects are somewhat weak, and the amount of weight loss can be negated easily by even just slightly overeating. BMI needs to be greater than 27 kg/m2with a medical comorbidity or 30 kg/m2 without any medical comorbidity in order to qualify for a medication for weight loss. Expected weight loss while on these may be around 5% over the course of 6 months, and sometimes can be used longer term. Third, for patients with a BMI between 30 kg/m2 and 40 kg/m2, an option remains to manage weight with an endoscopic procedure for weight loss. Currently, there are two FDA approved procedures for weight loss. The 1st being a saline-filled balloon that this placed in the stomach for a 6 month time period and then removed; the 2nd being endoscopic sleeve gastroplasty where the stomach is sewn permanently smaller to give restriction in how much food a person can consume. These are paid for out of pocket, and can cost $10,000 to $15,000. BMI should be between 30 kg/m2 and 40 kg/m2, and expected weight loss from these procedures is maybe around 10% to 15% of a person's total body weight. Lastly, bariatric surgery is the most aggressive option for treatment of weight related issues. Thetwo most common surgeries we do here at [facility] are the sleeve gastrectomy and the Diego-en-Y gastric bypass. These are often covered by insurance, but sometimes can be a plan exclusion based on the patient's insurance. BMI should be greater than 35 kg/m2 with a medical comorbidity or greater than 40 kg/m2 without any medical comorbidity to qualify for bariatric surgery, with an expected weight loss of 25% to 30% of a person's total body weight. He will be meeting with our dietitian to discuss topics like calorie intake versus output balance, calorie goals for weight maintenance and weight loss, food tracking and journaling, portion sizes, calorie density, and other lifestyle related changes necessary for nursing home success. Discussed that one source of many of his calories come in liquid form. This type of nutrition oftenis not as satiating and can be a challenge to keep in on a daily basis when patients are particularly trying to reduce calories. Taking these out of dietary patterns is often a simple way to assist with weight loss with just changes to non-caloric beverages. For him in particular the alcohol would be a good thing to moderate better. MEDICATIONS At this time, he expressed interest in starting a medication for weight loss. Information includingmechanism of action and side effects of the FDA approved medications for weight loss was provided. His BMI meets criteria for medical therapies for weight loss BMI > 30 BMI > 27 with medical comorbidities We discussed the rationale for a structured accountability program prior to and during utilizing a medication for weight loss. Our department, along with the FDA, recommend participation in a structured weight loss program prior to initiating medications. People who forego formal efforts at lifestyle changes are more likely to have short term weight loss with subsequent weight regain after cessation of the medication, and sometimes even experience limited or no weight loss at all. Ideally, we also prefer see weight stability or weight trend decrease prior to prescribing medications for weight loss, otherwise the efficacy of weight loss medications could be negligible, or at best assist the patient in achieving weight stability only, putting patients at risk for side effects without the benefits of expediting weight loss. His recent weight trend is as follows: Wt Readings from Last 5 Encounters: 09/05/22 109 kg 08/21/22 110 kg 07/22/22 112 kg 07/03/22 113 kg 05/22/22 112 kg Knowing this, he would like to start a medication for weight loss today. Currently, there are seven FDA approved and cleared indicated for weight loss. Three of these work in the gastrointestinal system (liraglutide, semaglutide and orlistat), and the remaining three workby appetite suppression (naltrexone/buproprion, phentermine/topiramate, and phentermine). Phentermine can only be used short term, while all others can be used for a longer period of time. At this time, he would like to attempt semaglutide. This medication works by decreasing gastric emptying and us helping patients feel salazar. Given this mechanism of action, its most common side effects include nausea and vomiting. We also caution patients regarding abdominal pain with this medication and the need for evaluation for pancreatitis as well as gallbladder issues such as gallstones and cholecystitis. In addition to this, in animal models there is concern for medullary thyroid cancer. We will plan to titrate the medication as below: Week 1 through week 4 : 0.25 mg once weekly. Week 5 through week 8: 0.5 mg once weekly. Week 9 through week 12: 1 mg once weekly. Week 13 through week 16: 1.7 mg once weekly. Week 17 and thereafter (maintenance dosage): 2.4 mg once weekly Follow up: Patient to follow up in 3 months with myself. If the patient would like to start a medication or change to a different medication, please schedule the patient for first available follow up appointment. For patients taking medications for weight loss, if the patient cannot tolerate the medication due to side effects including gastrointestinal, mood, or other side effects, they can stop the medication. For issues with cost of weight loss medications, patients should continue to look at the metalsmith's website for decreased copayment coupons, check with their insurance company to check coverage, and check different pharmacies for rodriguez comparison. Weight loss medications are not covered by insurance companies. If patient requests refills of medications, please check if refills have already been ordered. If he were to pursue bariatric surgery, he would be considered low medical complexity. documented in this encounter Plan of Treatment Upcoming Encounters Date Type Department Care Team (Latest Contact Info) Description 05/28/2023 9:30 AM L TACKER Clinical Communication Virtual Review in [address] [address] 05/30/2023 11:00 AM L TACKER Appointment Department of Laboratory Medicine and Pathology, [facility] in [address] [phone] Sole Read APRN, C.N.P., D.N.P. [address] [place] [phone] 05/30/2023 1:00 PM L TACKER Office Visit Division of Hematology in [address] [phone] Sole Read APRN, C.N.P., D.N.P. [address] [place] [phone] 06/17/2023 10:30 AM L TACKER Clinical Communication Virtual Review in [address] [address] 06/18/2023 2:00 PM L TACKER Office Visit Division of Endocrinology in [address] [phone] Get Ragland APRN, Lanny.N.P., D.N.P. [address] [place] [phone] 06/25/2023 10:30 AM CDT Appointment Department of Laboratory Medicine in [address] [phone] Bárbara Soto, JASON, C.N.P. [address] [place] [address] Scheduled Referrals Name Type Priority Associated Diagnoses Order Schedule Endocrinology office visit (clinic) Outpatient Referral Routine Obesity Body Mass Index 30-39.9 Adult Sleep Apnea Hypertension Essential Primary Expected: 12/06/2022 (Approximate), Expires: 12/07/2023 documented as of this encounter Visit Diagnoses Diagnosis Obesity Body Mass Index 30-39.9 Adult- Primary Sleep Apnea Hypertension Essential Primary documented in this encounter Additional Health Concerns Infection Onset Date Last Indicated Resolved Time Protective Environment 07/19/2022 07/19/2022 Assessment Noted Time PHQ-9 Depression Total Score: 0 01/01/20 16 12:53 PM CDT documented as of this encounter Care Teams Job Coach Relationship Specialty Start Date End Date Elsewhere, Pcp PCP - General Family Medicine 11/27/20 documented as of this encounter
--- OUTSIDE RECORDS SUMMARY | 2023-05-01 16:09 | XMS_ITS | Encounter Summary ---
Author Name Unknown Organization [facility] Address [address] [place] [address] Care Team Providers Care Wine Steward/Stewardess Name Role Phone Elsewhere, Pcp Primary Care Provider Unavailabl e Encounter Details Date Type Department Care Team (Latest Contact Info) Description 09/04/2022 9:00 AM CDT Clinical Communication Virtual Review in [place], [place] [address] [place] [address] Canceled Social History Tobacco Use Types Packs/Day Years [...] any clubs o r organizations such as restoration groups, unions, fraternal or athletic groups, or [...] and heating? Not hard at all 09/19/2022 [facility] of Occupat ional Health - [...] Master's degree (e.g., MA, MS, Starla, MEd, FLOOR WORKER [employer]SFER [employer]AY, DEBRA) 09/16/2018 Sex and Gender Information Value Date Recorded Sex Assigned at Male 10/08/2017 8:25 AM CDT Gender Identity Male 10/08/2017 8:25 AM CDT Sexual Orientation Straight 10/08/2017 8: 25 AM CDT documented as of this encounter Plan of Treatment Upcoming Encounters Date Type Department Care Team (Latest Contact Info) Description 05/28/2023 9:30 AM SPECIAL EDUCATION TEACHER Clinical Communication Virtual Review in [place], [place] [address] [place] [address] 05/30/2023 11:00 AM SPECIAL EDUCATION TEACHER Appointment Department of Laboratory Medicine and Pathology, [facility], in [place], [place] [address] [place] [phone] Sole Read APRN, C.N.P., D.N.P. [address] [place] [phone] 05/30/2023 1:00 PM SPECIAL EDUCATION TEACHER Office Visit Division of Hematology in [place], [place] [address] [place] [phone] Sole Read APRN, C.N.P., D.N.P. [address] [place] [phone] 06/17/2023 10:30 AM SPECIAL EDUCATION TEACHER Clinical Communication Virtual Review in [place], [place] [address] [place] [address] 06/18/2023 2:00 PM SPECIAL EDUCATION TEACHER Office Visit Division of Endocrinology in [place], [place] [address] [place] [phone] Get Ragland APRN, C.N.P., D.N.P. [address] [place] [phone] 06/25/2023 10:30 AM CDT Appointment Department of Laboratory Medicine in [address] [phone] Bárbara Soto APRN, C.N.P. [address] [place] [phone] documented as of this encounter Visit Diagnoses Not on filedocumented in this encounter Additional Health Concerns Infection Onset Date Last Indicated Resolved Time Protective Environment 07/19/2022 07/19/2022 Assessment Noted Time PHQ-9 Depression Total Score: 0 01/01/20 16 12:53 PM CDT documented as of this encounter Care Teams Wine Steward/Stewardess Relationship Specialty Start Date End Date Elsewhere, Pcp PCP - General Family Medicine 11/27/20 documented as of this encounter
--- OUTSIDE RECORDS SUMMARY | 2023-05-01 16:09 | XMS_ITS | Encounter Summary ---
Author Name Unknown Organization [facility] Address [address] [place] [address] Care Team Providers Care Laminating Machine Operator Name Role Phone Elsewhere, Pcp Primary Care Provider Unavailabl e Reason for Visit * Reason Onset Date Comments Rx Denial 09/10/2022 WEGOVY 0.25 MG/0 .5 ML SOLUTION AUTO-INJECTOR Encounter Details Date Type Department Care Team (Latest Contact Info) Description 09/10/2022 Clinical Communication Pharmacy Prior Auth RO [phone] Trang Gilliland Rx Denial (WEGOVY 0.25 MG/0.5 ML SOLUTION AUTO-INJECTOR) Social History Tobacco Use Types Packs/Day Years [...] Not hard at all 09/19/2022 [facility] - Occupational Stress Questionnaire Answer Date [...] your living situation today? I have a [facility] place to live 09/19/2022 Education Answer Date Recorded What is the highest level of school you have completed or the highest degree you have received? Master's degree (e.g., MA, MS, Starla, MEd, HELP DESK OPERATOR, DEBRA) 09/16/2018 Sex and Gender Information Value Date Recorded Sex Assigned at Male 10/08/2017 8:25 AM CDT Gender Identity Male 10/08/2017 8:25 AM CDT Sexual Orientation Straight 10/08/2017 8: 25 AM CDT documented as of this encounter Miscellaneous Notes * Telephone Encounter - Trang Gilliland - 09/10/2022 3:08 PM CDT Images from the original note were not included. The patient's health insurer has denied prior authorization for WEGOVY 0.25 MG/0.5 ML SOLUTION AUTO-INJECTOR. A screen shot of the denial reason is at the bottom of this communication message. To view the complete denial letter, scroll down to the green Guidance section below and click on the appropriate medication in the Current Prescription Prior Authorizations display. As the prescriber, your options are: Appeal the decision to the insurer directly (see denial letter for how to appeal). Write a new Rx for an alternative medication therapy. Release the Rx to the pharmacy so the patient has the option to pay out of pocket. To Release Rx: Open this encounter, go to [facility], and click on the medication. If the blue ???Release Rx?? button appears as an option, click to release the prescription. If the blue Release Rx button is not visible, the Rx has already been released to the pharmacy. If you have questions, please reply to Sim CR. Thank you, The OPPA Team documented in this encounter Plan of Treatment Upcoming Encounters Date Type Department Care Team (Latest Contact Info) Description 05/28/2023 9:30 AM LAUNDRY PRESSER Clinical Communication Virtual Review in [address] [address] 05/30/2023 11:00 AM LAUNDRY PRESSER Appointment Department of Laboratory Medicine and Pathology, [facility], in [address] [phone] Sole Read APRN, C.N.P., D.N.P. [address] [place] [phone] 05/30/2023 1:00 PM LAUNDRY PRESSER Office Visit Division of Hematology in [address] [phone] Sole Read APRN, C.N.P., D.N.P. [address] [place] [phone] 06/17/2023 10:30 AM LAUNDRY PRESSER Clinical Communication Virtual Review in [address] [address] 06/18/2023 2:00 PM LAUNDRY PRESSER Office Visit Division of Endocrinology in [address] [phone] Get Ragland APRN, C.N.P., D.N.P. [address] [place] [phone] 06/25/2023 10:30 AM CDT Appointment Department of Laboratory Medicine in [address] [phone] Bárbara Soto APRN, C.N.P. [address] [place] [phone] documented as of this encounter Visit Diagnoses Not on filedocumented in this encounter Additional Health Concerns Infection Onset Date Last Indicated Resolved Time Protective Environment 07/19/2022 07/19/2022 Assessment Noted Time PHQ-9 Depression Total Score: 0 01/01/20 16 12:53 PM CDT documented as of this encounter Care Teams Laminating Machine Operator Relationship Specialty Start Date End Date Elsewhere, Pcp PCP - General Family Medicine 11/27/20 documented as of this encounter
--- OUTSIDE RECORDS SUMMARY | 2023-05-01 16:09 | XMS_ITS | Encounter Summary ---
Author Name Unknown Organization [facility] Address [address] [place] [address] Care Team Providers Care Java Architect Name Role Phone Elsewhere, Pcp Primary Care Provider Unavailabl e Reason for Referral * Outpatient (Routine) - Authorized Specialty Diagnoses / Procedures Referred By Contac t Referred To Contact Diagnoses Dilated Aortic Root (HCC) Procedures Echo Transthoracic (TTE) Ok Padilla M.D. [address] [place] [address] [facility] Region Referral ID Status Reason Start Date Expiration Date V isits Requested Visits Authorized [id number] Authorized 08/21/2022 08/21/2023 1 1 * Outpatient (Routine) - Authorized Specialty Diagnoses / Procedures Referred By Contac t Referred To Contact Cardiovascular Disease Ok Padilla M.D. [address] [place] [address] [facility] Region Referral ID Status Reason Start Date Expiration Date V isits Requested Visits Authorized [id number] Authorized 08/21/2022 08/20/2025 1 1 Reason for Visit * Reason Comments Follow-up * Outpatient (Routine) - Closed Specialty Diagnoses / Procedures Referred By Nuvia de leon Referred To Contact Cardiovascular Disease Ok Padilla M.D. [address] [place] [address] [facility] Region Referral ID Status Reason Start Date Expiration Date Visits Re quested Visits Authorized [id number] Closed 05/22/2022 05/21/2025 1 1 Encounter Details Date Type Department Care Team (Latest Contact Info) Description 08/21/2022 11:00 AM CDT Office Visit Department of Cardiovascular Diseases in [place] [address] [place] [address] Ok Padilla M.D. [address] [place] [address] Dilated Aortic Root (HCC) (Primary Dx) Discharge Disposition: Home or Self Care Social [...] any clubs o r organizations such as latter day groups, unions, fraternal or athletic groups, or [...] and heating? Not hard at all 07/16/2022 [facility] - [...] Master's degree (e.g., MA, MS, Starla, MEd, PATIENT CLERICAL ASSISTANT, DEBRA) 09/16/2018 Sex and Gender Information Value Date Recorded Sex Assigned at Male 10/08/2017 8:25 AM CDT Gender Identity Male 10/08/2017 8:25 AM CDT Sexual Orientation Straight 10/08/2017 8: 25 AM CDT documented as of this encounter Last Filed Vital Signs Vital Sign Reading Time Taken Comments Blood Pressure 141/80 08/21/2022 10:59 AM CDT Pulse 67 08/21/2022 10:59 AM CDT Temperature 37 ??C (98.6 ??F) 08/21/2022 10:57 AM CDT Respiratory Rate - - Oxygen Saturation 96% 08/21/2022 10:57 AM CDT Inhaled Oxygen Concentration - - Weight 110 kg (242 lb 15.2 oz) 08/21/2022 10:57 AM CDT Height - - Body Mass Index 34.51 07/22/2022 10:51 AM CDT documented in this encounter Progress Notes * Ok Padilla M.D. - 08/21/2022 11:00 AM CDT SUBJECTIVE CHIEF COMPLAINT/REASON FOR VISIT Followup test results. HISTORY OF PRESENT ILLNESS Get is a pleasant 67-year-old gentleman from [place], [place]. He is known to me from multiple prior visits over the years. The reader is referred to my May 2022 interim progress note for comprehensive details. Purpose of today's visit is to review his CT scan for surveillance of his complex thoracic aortic disease. Fortunately, the CT scan shows stability of the ascending aorta at 58 mm. 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 I am happy to inform that his ascending aorta dimension is stable at [address] scan. The plan will be ongoing surveillance primarily with echocardiography. We reviewed his lipid profile. Lipids are appropriately controlled. Blood pressure is slightly elevated in clinic. I have encouraged Get to monitor blood pressure more frequently at home. The goal blood pressure in this gentleman again with complex thoracic aorta disease is less than 130/85 mmHg. He will contact me if multiple readings above this. Given his overall clinical stability, I will make arrangements to visit with Get in 1 year with dez just prior. Ok Padilla M.D. CT CT Job ID: [id number] documented in this encounter Plan of Treatment Upcoming Encounters Date Type Department Care Team (Latest Contact Info) Description 05/28/2023 9:30 AM REMEDY DEVELOPER Clinical Communication Virtual Review in [place] [address] [place] [address] 05/30/2023 11:00 AM REMEDY DEVELOPER Appointment Department of Laboratory Medicine and Pathology, [facility], in [place], [place] [address] [place] [phone] Sole Read APRN, C.N.P., D.N.P. [address] [place] [phone] 05/30/2023 1:00 PM REMEDY DEVELOPER Office Visit Division of Hematology in [place], [place] [address] [place] [phone] Sole Read APRN, C.N.P., D.N.P. [address] [place] [phone] 06/17/2023 10:30 AM REMEDY DEVELOPER Clinical Communication Virtual Review in [place], [place] [address] [place] [address] 06/18/2023 2:00 PM REMEDY DEVELOPER Office Visit Division of Endocrinology in [place], [place] [address] [place] [phone] Get Ragland APRN, C.N.P., D.N.P. [address] [place] [phone] 06/25/2023 10:30 AM CDT Appointment Department of Laboratory Medicine in [address] [phone] Bárbara Soto APRN, C.N.P. [address] [place] [phone] Scheduled Orders Name Type Priority Associated Diagnoses Order Schedule Echo Transthoracic (TTE) Echocardiography Routine Dilated Aortic Root (HCC) Expected: 08/22/2023 (Approximate), Expires: 11/22/2023 Scheduled Referrals Name Type Priority Associated Diagnoses Order Schedule Cardiovascular Disease office visit (clinic) General Outpatient Referral Routine Expected: 08/22/2023 (Approximate), Expires: 11/22/2023 documented as of this encounter Visit Diagnoses Diagnosis Dilated Aortic Root (HCC)- Primary documented in this encounter Additional Health Concerns Infection Onset Date Last Indicated Resolved Time Protective Environment 07/19/2022 07/19/2022 Assessment Noted Time PHQ-9 Depression Total Score: 0 01/01/20 16 12:53 PM CDT documented as of this encounter Care Teams Java Architect Relationship Specialty Start Date End Date Elsewhere, Pcp PCP - General Family Medicine 11/27/20 documented as of this encounter
--- OUTSIDE RECORDS SUMMARY | 2023-05-01 16:09 | XMS_ITS | Encounter Summary ---
Author Name Unknown Organization [facility] Address [address] [place] [address] Care Team Providers Care Sales Service Executive Name Role Phone Elsewhere, Pcp Primary Care Provider Unavailabl e Reason for Referral * MRI/CAT/PET Scan (Routine) - Closed Specialty Diagnoses / Procedures Referred By Nuvia de leon Referred To Contact Radiology Diagnoses Dilated Aortic Root (HCC) Aneurysm Thoracic Aorta Personal History Coach Driver (Current) Anticoagulant Treatment Abnormal Result Of Other Cardiovascular Function Study Procedures CT Chest Angiogram with IV Contrast CT Cardiac Angiogram with IV Contrast Ok Padilla M.D. [address] [place] [address] [facility] Region Referral ID Status Reason Start Date Expiration Date Visits Re quested Visits Authorized [id number] Closed 05/22/2022 05/22/2023 1 1 Reason for Visit * MRI/CAT/PET Scan (Routine) - Closed Specialty Diagnoses / Procedures Referred By Contdiana de leon Referred To Contact Radiology Diagnoses Dilated Aortic Root (HCC) Aneurysm Thoracic Aorta Personal History Coach Driver (Current) Anticoagulant Treatment Abnormal Result Of Other Cardiovascular Function Study Procedures CT Chest Angiogram with IV Contrast CT Cardiac Angiogram with IV Contrast Ok Padilla M.D. [address] [place] [address] [facility] Region Referral ID Status Reason Start Date Expiration Date Visits Re quested Visits Authorized [id number] Closed 05/22/2022 05/22/2023 1 1 Encounter Details Date Type Department Care Team (Latest Contact Info) Description 08/19/2022 9:32 AM CDT - 08/19/2022 11:59 PM CDT Hospital Encounter Department of Radiology, [facility], in [place], [place] [address] [place] [address] Ok Padilla M.D. [address] [place] [address] Dilated Aortic Root (HCC); Aneurysm Thoracic Aorta Personal History; Mcfp (Current) Anticoagulant Treatment; Abnormal Result Of Other Cardiovascular Function Study Discharge Disposition: Home or Self Care Social [...] week 07/16/2022 How often do you attend [facility] or spiritism services? Never 07/16/2022 Do you belong to any clubs o r organizations such as jewish groups, unions, fraternal or athletic groups, or [...] heating? Not hard at all 07/16/2022 [facility] Health - [...] place to sleep or slept in a long term (including now)? No 07/16/2022 Nutrition Answer Date [...] Master's degree (e.g., MA, MS, Starla, MEd, EPIC SPECIALIST, DEBRA) 09/16/2018 Sex and Gender Information [...] mg by mouth daily. 3 01/01/2018 03/18/2023 medical cannabis solution Take 1 each by mouth at bedtime. THC component: 240 mg CBD component: trace mg 0 09/10/2022 methotrexate 2.5 mg tabletIndications:Ar thritis Psoriatic (HCC) Take 7 tablets (17.5 mg total) by mouth once a week. Takes on . 84 tablet 3 10/11/2021 12/24/2022 mirtazapine (REMERON) 15 mg tablet Take 15 mg by mouth at bedtime. 0 01/14/2022 09/10/2022 mirtazapine (REMERON) 30 mg tablet Take 30 mg by mouth at bedtime. 0 03/18/2023 predniSONE (DELTASONE) 5 mg tabletIndications:Ar thritis Psoriatic (HCC) Take 1-4 tablets (5-20 mg total) by mouth as directed. 139 tablet 0 06/06/2021 09/03/2022 traZODone (DESYREL) 50 mg tablet Take 50 mg by mouth at bedtime. 0 04/29/2022 09/10/2022 documented as of this encounter Plan of Treatment Upcoming Encounters Date Type Department Care Team (Latest Contact Info) Description 05/28/2023 9:30 AM GEAR CHANGER Clinical Communication Virtual Review in [place], [place] [address] [place] [address] 05/30/2023 11:00 AM GEAR CHANGER Appointment Department of Laboratory Medicine and Pathology, [facility] in [place], [place] [address] [place] [phone] Sole Read APRN, C.N.P., D.N.P. [address] [place] [phone] 05/30/2023 1:00 PM GEAR CHANGER Office Visit Division of Hematology in [place], [place] [address] [place] [phone] Sole Read APRN, C.N.P., D.N.P. [address] [place] [phone] 06/17/2023 10:30 AM GEAR CHANGER Clinical Communication Virtual Review in [place], [place] [address] [place] [address] 06/18/2023 2:00 PM GEAR CHANGER Office Visit Division of Endocrinology in [place], [place] [address] [place] [phone] Get Ragland APRN, C.N.P., D.N.P. [address] [place] [phone] 06/25/2023 10:30 AM CDT Appointment Department of Laboratory Medicine in [address] [phone] Bárbara Soto APRN, C.N.P. [address] [place] [address] documented as of this encounter Procedures Procedure Name Priority Date/Time Associated Diagnosis Comments CT CHEST ANGIOGRAM WITH IV CONTRAST RAD - Routine (most inpatients and all outpatients) 08/19/2022 11:07 AM CDT Dilated Aortic Root (HCC) Aneurysm Thoracic Aorta Personal History Mcfp (Current) Anticoagulant Treatment Abnormal Result Of Other Cardiovascular Function Study documented in this encounter Results * CT Chest Angiogram with IV Contrast (08/19/2022 11:07 AM CDT) Anatomical Region Laterality Modality Chest, Cardiovascular RST LO S, Thoracic ARZ LOS, Thoracic FLA LOS, Vascular Interventional ARZ LOS, Procedural N/A Computed Tomography , Computed Tomography 08/19/2022 10:3 8 AM CDT Impressions 08/19/2022 11:37 AM CDT 1. ??Stable dilatation of the aortic root at the level of the reconstructed sinuses up to 58 mm. 2. ??Stable appearance of aortic valve replacement, ascending aorta repair and descending thoracic aortic stent graft. The mechanical leaflets function normally with no evidence of thrombus on them. Coronary origins remain widely patent. 3. ??Interval excisional biopsy of the right axillary lymph nodes. Narrative 08/19/2022 11:37 AM CDT EXAM: ??CT CHEST ANGIOGRAM WITH IV CONTRAST Including 3D image post-processing. COMPARISON: ??CT chest abdomen and pelvis angiogram 03/22/2020 and 02/19/2017 FINDINGS: VASCULAR FINDINGS: Asymmetric aneurysmal dilatation of the [place] aortic sinus between aortic valve replacement and ascending aortic repair. The dimension and morphology of the aneurysm remain unchanged from prior exams when measured at same level and in similar manner, with maximum caliber of approximately 58 mm. No aneurysmal dilatation of the aortic arch. Endograft repair of the descending aorta is also stable in appearance and measurements. Examination not tailored for evaluation of coronary arteries however conventional origin and course of the coronary arteries which are widely patent at their origins. ADDITIONAL FINDINGS: Sternotomy. Minimal bibasilar atelectasis. Interval excisional biopsy of right axillary lymph nodes with surgical clips in the right axilla. Stable few subcentimeter mediastinal lymph nodes. Procedure Note Jr Aguilar M.D. - 08/19/2022 EXAM: CT CHEST ANGIOGRAM WITH IV CONTRAST Including 3D image post-processing. COMPARISON: CT chest abdomen and pelvis angiogram 03/22/2020 and02/19/2017 FINDINGS: VASCULAR FINDINGS: Asymmetric aneurysmal dilatation of the [place]ult aortic sinus between aorticvalve replacement and ascending aortic repair. The dimension and morphology of the aneurysmremain unchanged from prior exams when measured at same level and in similar manner, with maximumcaliber of approximately 58 mm. No aneurysmal dilatation of the aortic arch. Endograft repair of thedescending aorta is also stable in appearance and measurements. Examination not tailored for evaluation of coronary arteries howeverconventional origin and course of the coronary arteries which are widely patent at their origins. ADDITIONAL FINDINGS: Sternotomy. Minimal bibasilar atelectasis. Interval excisional biopsy ofright axillary lymph nodes with surgical clips in the right axilla. Stable few subcentimetermediastinal lymph nodes. IMPRESSION: 1. Stable dilatation of the aortic root at the level of the reconstructedsinuses up to 58 mm. 2. Stable appearance of aortic valve replacement, ascending aorta repairand descending thoracic aortic stent graft. The mechanical leaflets function normally with noevidence of thrombus on them. Coronary origins remain widely patent. 3. Interval excisional biopsy of the right axillary lymph nodes. Ok Padilla M.D. Jaky CT PROCEDURES documented in this encounter Visit Diagnoses Diagnosis Dilated Aortic Root (HCC) Aneurysm Thoracic Aorta Personal History Coach Driver (Current) Anticoagulant Treatment Abnormal Result Of Other Cardiovascular Function Study documented in this encounter Administered Medications Inactive Administered Medications - up to 3 most recent administrations Medication Order MAR Action Action Date Dose Rate Site iohexoL 350 mg iodine/mL solution 1-200 mL (OMNIPAQUE) 1-200 mL, intravenous, Once in imaging, contrast, Starting on Fri08/19/22 at 0950, For 1 dose, Imaging Protocol Orders, Dose per Radiant Medication Guidelines Given 08/19/2022 10:26 AM CDT 140 mL sodium chloride (PF) 0.9 % injection 1-100 mL 1-100 mL, intravenous, Once, On Fri08/19/22 at 1000, For 1 dose, Imaging Protocol Orders Given 08/19/2022 10:27 AM CDT 50 mL documented in this encounter Additional Health Concerns Infection Onset Date Last Indicated Resolved Time Protective Environment 07/19/2022 07/19/2022 Assessment Noted Time PHQ-9 Depression Total Score: 0 01/01/20 16 12:53 PM CDT documented as of this encounter Care Teams Sales Service Executive Relationship Specialty Start Date End Date Elsewhere, Pcp PCP - General Family Medicine 11/27/20 documented as of this encounter
--- OUTSIDE RECORDS SUMMARY | 2023-05-01 16:10 | XMS_ITS | Encounter Summary ---
Author Name Unknown Organization [facility] Address [address] [place] [address] Care Team Providers Care Tail Dogger Name Role Phone Elsewhere, Pcp Primary Care Provider Unavailabl e Reason for Visit * Reason Comments Outpatient Infusion * Episode Based Medications (Routine) - Closed Specialty Diagnoses / Procedures Referred By Contac t Referred To Contact Diagnoses Arthritis Psoriatic (HCC) Bárbara Soto APRN, C.N.P. [address] [place] [phone] [facility] [address] [place] [phone] Referral ID Status Reason Start Date Expiration Date Visits Re quested Visits Authorized [id number] Closed 08/27/2021 08/27/2022 99 99 Encounter Details Date Type Department Care Team (Late st Contact Info) Description 05/08/2022 9:45 AM EMERGENCY MEDICINE MEDICAL DIRECTOR Infusion Department of Infusion Therapy in [address] [phone] Bárbara Soto APRN, C.N.P. [address] [place] [phone] Arthritis Psoriatic (HCC) (Primary Dx) Social History Tobacco Use Types Packs/Day Years Used Date Smoking Tobacco: Never Smokeless Tobacco: Never Alcohol Use Standard Drinks/Week Comments Yes 2 (1 standard drink = 0.6 oz pur e alcohol) Humiliation, Afraid, Rape, and Kick questionnair e Answer Date Recorded Within the last year, have y ou been afraid of your partner or ex-partner? No 12/04/2021 Within the last year, have y ou been humiliated or emotionally abused in other ways by your partner or ex-partner? No Within the last year, have y ou been kicked, hit, slapped, or otherwise physically hurt by your partner or ex-partner? No 12/04/2021 Within the last year, have y ou been raped or forced to have any kind of sexual activity by your partner or ex-partner? No 12/04/2021 Social Connection and Isolat ion Panel [NHANES] Answer Date Recorded In a typical week, how many times do you talk on the phone with family, friends, or neighbors? Twice a week 12/04/2021 How often do you get togethe r with friends or relatives? Twice a week 12/04/2021 How often do you attend chur or hinduism services? Never 12/04/2021 Do you belong to any clubs o r organizations such as amish groups, unions, fraternal or athletic groups, or school groups? Yes 12/04/2021 How often do you attend meet ings of the clubs or organizations you belong to? More than 4 times per year 12/04/2021 Are you , , di vorced, , never , or living with a partner? 12/04/2021 AUDIT-C Answer Date Recorded Q1: How often do you have a drink containing alc ohol? 2-3 times a week 12/04/2021 Q2: How many drinks containi ng alcohol do you have on a typical day when you are drinking? 1 or 2 12/04/2021 Q3: How often do you have si x or more drinks on one occasion? Less than monthly 12/04/2021 Overall Financial Resource Strain (CARDIA) Answe r Date Recorded How hard is it for you to pa y for the very basics like food, housing, medical care, and heating? Not very hard 12/04/2021 [facility] [place] of Occupat ional Health - Occupational Stress Questionnaire Answer Date Recorded Do you feel stress - tense, restless, nervous, or anxious, or unable to sleep at night because your mind is troubled all the time - these days? To some extent 12/04/2021 Exercise Vital Sign Answer Date Recorde d On average, how many days pe r week do you engage in moderate to strenuous exercise (like a brisk walk)? 0 days 12/04/2021 On average, how many minutes do you engage in exercise at this level? 0 min 12/04/2021 Hunger Vital Sign Answer Date Recorded Within the past 12 months, y ou worried that your food would run out before you got the money to buy more. Never true 12/05/19 22 Within the past 12 months, t he food you bought just didn't last and you didn't have money to get more. Never true 12/04/2021 PRAPARE - Transportation Answer Date Re corded In the past 12 months, has l ack of transportation kept you from medical appointments or from getting medications? No 11/13 In the past 12 months, has l ack of transportation kept you from meetings, work, or from getting things needed for daily living? No 12/04/2021 Housing Stability Vital Sign Answer Matias e Recorded In the last 12 months, was t here a time when you were not able to pay the mortgage or rent on time? No 12/04/2021 In the last 12 months, how many places have you lived? 1 12/04/2021 In the last 12 months, was t here a time when you did not have a steady place to sleep or slept in a nursing home (including now)? No 12/04/2021 Nutrition Answer Date Recorded Nutrition: EVOO Fat Source No 12/04 On average, how many serving s of fruits and vegetables do you eat per day (serving size is equal to 1 cup or approximately the size of a tennis ball)? 2-3 12/04/2021 Dental Answer Date Recorded Dental: Regular Dentist Yes 06/01/19 Employment Answer Date Recorded Employment status Retired 12/04/2021 Education Answer Date Recorded What is the highest level of school you have completed or the highest degree you have received? Master's degree (e.g., MA, MS, Starla, MEd, INTEGRATED MARKETING SPECIALIST, DEBRA) 09/16/2018 Sex and Gender Information Value Date Recorded Sex Assigned at Male 10/08/2017 8:25 AM CDT Gender Identity Male 10/08/2017 8:25 AM CDT Sexual Orientation Straight 10/08/2017 8: 25 AM CDT documented as of this encounter Last Filed Vital Signs Vital Sign Reading Time Taken Comments Blood Pressure 124/74 05/08/2022 10:29 AM EMERGENCY MEDICINE MEDICAL DIRECTOR Pulse 78 05/08/2022 10:29 AM EMERGENCY MEDICINE MEDICAL DIRECTOR Temperature 36 ??C (96.8 ??F) 05/08/2022 9:36 AM EMERGENCY MEDICINE MEDICAL DIRECTOR Respiratory Rate 18 05/08/2022 10:29 AM EMERGENCY MEDICINE MEDICAL DIRECTOR Oxygen Saturation 97% 05/08/2022 9:36 AM EMERGENCY MEDICINE MEDICAL DIRECTOR Inhaled Oxygen Concentration - - Weight 114 kg (250 lb 14.1 oz) 05/08/2022 9:31 A M EMERGENCY MEDICINE MEDICAL DIRECTOR Height - - Body Mass Index 35.76 03/21/2022 12:42 PM EMERGENCY MEDICINE MEDICAL DIRECTOR documented in this encounter Plan of Treatment Upcoming Encounters Date Type Department Care Team (Latest Contact Info) Description 05/28/2023 9:30 AM EMERGENCY MEDICINE MEDICAL DIRECTOR Clinical Communication Virtual Review in [address] [phone] 05/30/2023 11:00 AM EMERGENCY MEDICINE MEDICAL DIRECTOR Appointment Department of Laboratory Medicine and Pathology, [facility], in [address] [phone] Sole Read APRN, C.N.P., D.N.P. [address] [place] [phone] 05/30/2023 1:00 PM EMERGENCY MEDICINE MEDICAL DIRECTOR Office Visit Division of Hematology in [address] [phone] Sole Read APRN, C.N.P., D.N.P. [address] [place] [phone] 06/17/2023 10:30 AM EMERGENCY MEDICINE MEDICAL DIRECTOR Clinical Communication Virtual Review in [address] [place] [address] 06/18/2023 2:00 PM EMERGENCY MEDICINE MEDICAL DIRECTOR Office Visit Division of Endocrinology in [place], [place] [address] [place] [phone] Get Ragland APRN, C.N.P., D.N.P. [address] [place] [phone] 06/25/2023 10:30 AM CDT Appointment Department of Laboratory Medicine in [address] [phone] Bárbara Soto APRN, C.N.P. [address] [place] [phone] documented as of this encounter Visit Diagnoses Diagnosis Arthritis Psoriatic (HCC)- Primary documented in this encounter Administered Medications Inactive Administered Medications - up to 3 most recent administrations Medication Order MAR Action Action Date Dose Rate Site golimumab 225 mg in NaCl 0.9% IVPB (SIMPONI ARIA) 225 mg (rounded from 228 mg = 2 mg/kg ? 114 kg), intravenous, at 200 mL/hr, Administer over 30 Minutes, Once, On Fri05/08/22 at 0945, For 1 dose, Do NOT shake. Use in-line filter. Do NOT refrigerate. New Bag 05/08/2022 9:52 AM EMERGENCY MEDICINE MEDICAL DIRECTOR 225 mg 200 mL/hr sodium chloride 0.9 % injection 10 mL 10 mL, intravenous, As needed, line care, Starting on Fri05/08/22 at 0932 Given 05/08/2022 10:26 AM EMERGENCY MEDICINE MEDICAL DIRECTOR 10 mL Given 05/08/2022 9:52 AM EMERGENCY MEDICINE MEDICAL DIRECTOR 10 mL documented in this encounter Additional Health Concerns Assessment Noted Time PHQ-9 Depression Total Score: 0 01/01/20 16 12:53 PM CDT documented as of this encounter Care Teams Tail Dogger Relationship Specialty Start Date End Date Elsewhere, Pcp PCP - General Family Medicine 11/27/20 documented as of this encounter
--- OUTSIDE RECORDS SUMMARY | 2023-05-01 16:10 | XMS_ITS | Encounter Summary ---
Author Name Unknown Organization [facility] Address [address] [place] [address] Care Team Providers Care Associate Software Developer Name Role Phone Elsewhere, Pcp Primary Care Provider Unavailabl e Encounter Details Date Type Department Care Team (Late st Contact Info) Description 06/27/2022 Orders Only Division of Rheumatology in [place], [place] [address] [place] [phone] Bárbara Soto, ELECTRICAL SYSTEMS ENGINEER, C.N.P. [address] [place] [phone] Social History Tobacco Use Types Packs/Day Years [...] 12/04/2021 How often do you attend chur ch or worship services? Never 12/04/2021 Do you belong to [...] care, and heating? Not very hard 12/04/2021 [facility]at ional [facility] [...] the money to buy more. Never true 08/23/20 22 Within the past 12 months, t [...] place to sleep or slept in a snf (including now)? No 12/04/2021 Nutrition Answer Date [...] Master's degree (e.g., MA, MS, Starla, MEd, DOG LICENSER, DEBRA) 09/16/2018 Sex and Gender Information Value Date Recorded Sex Assigned at Male 10/08/2017 8:25 AM CDT Gender Identity Male 10/08/2017 8:25 AM CDT Sexual Orientation Straight 10/08/2017 8: 25 AM CDT documented as of this encounter Plan of Treatment Upcoming Encounters Date Type Department Care Team (Latest Contact Info) Description 05/28/2023 9:30 AM TOP LIFT CUTTER Clinical Communication Virtual Review in [place], [place] [address] [place] [address] 05/30/2023 11:00 AM TOP LIFT CUTTER Appointment Department of Laboratory Medicine and Pathology, [facility], in [place], [place] [address] [place] [phone] Sole Read APRN, C.N.P., D.N.P. [address] [place] [phone] 05/30/2023 1:00 PM TOP LIFT CUTTER Office Visit Division of Hematology in [place], [place] [address] [place] [phone] Sole Read APRN, C.N.P., D.N.P. [address] [place] [phone] 06/17/2023 10:30 AM TOP LIFT CUTTER Clinical Communication Virtual Review in [place], [place] [address] [place] [address] 06/18/2023 2:00 PM TOP LIFT CUTTER Office Visit Division of Endocrinology in [place], [place] [address] [place] [phone] Get Ragland APRN, C.N.P., D.N.P. [address] [place] [phone] 06/25/2023 10:30 AM CDT Appointment Department of Laboratory Medicine in [address] [phone] Bárbara Soto APRN, C.N.P. [address] [place] [phone] documented as of this encounter Visit Diagnoses Not on filedocumented in this encounter Additional Health Concerns Assessment Noted Time PHQ-9 Depression Total Score: 0 01/01/20 16 12:53 PM CDT documented as of this encounter Care Teams Associate Software Developer Relationship Specialty Start Date End Date Elsewhere, Pcp PCP - General Family Medicine 11/27/20 documented as of this encounter
--- OUTSIDE RECORDS SUMMARY | 2023-05-01 16:10 | XMS_ITS | Encounter Summary ---
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 [address] [facility] Region Referral ID Status Reason Start Date Expiration Date Visits Re quested Visits Authorized [id number] Closed 05/22/2022 05/22/2023 1 1 HING ROOM SUPERVISOR * Outpatient (Routine) - Closed Specialty Diagnoses / Procedures Referred By Contac t Referred To Contact Cardiovascular Disease [place] [address] [facility] Region Referral ID Status Reason Start Date Expiration Date Visits Re quested Visits Authorized [id number] Closed 05/22/2022 05/21/2025 1 1 HING ROOM SUPERVISOR * Outpatient (Routine) - Closed Specialty Diagnoses / Procedures Referred By Nuvia de leon Referred To Contact Urology Diagnoses Dysfunction Erectile Ok Padilla M.D. [address] [place] [phone] [facility] Referral ID Status Reason Start Date Expiration Date Visits Re quested Visits Authorized [id number] Closed 05/22/2022 05/22/2023 1 1 HING ROOM SUPERVISOR Reason for Visit * Reason Comments Follow-up * Outpatient (Routine) - Closed Specialty Diagnoses / Procedures Referred By Nuvia de leon Referred To Contact Cardiovascular Disease Sole Read APRN, C.N.P., D.N.P. [address] [place] [phone] Ok Padilla M.D. [address] [place] [phone] Referral ID Status Reason Start Date Expiration Date Visits Re quested Visits Authorized [id number] Closed 03/21/2022 03/20/2025 1 1 Encounter Details Date Type Department Care Team (Latest Contact Info) Description 05/22/2022 10:30 AM CLOTHING ROOM SUPERVISOR Office Visit Department of Cardiovascular Diseases in [address] [phone] Ok Padilla M.D. 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 Never 07/16/2022 Do you belong to [...] and heating? Not hard at all 07/16/2022 [facility] Occupat ional Health - Occupational Stress [...] Master's degree (e.g., MA, MS, Starla, MEd, MAIL SUPERINTENDENT, DEBRA) 09/16/2018 Sex and Gender Information Value Date Recorded Sex Assigned at Male 10/08/2017 8:25 AM CDT Gender Identity Male 10/08/2017 8:25 AM CDT Sexual Orientation Straight 10/08/2017 8: 25 AM CDT documented as of this encounter Last Filed Vital Signs Vital Sign Reading Time Taken Comments Blood Pressure 138/80 05/22/2022 10:26 AM CLOTHING ROOM SUPERVISOR Pulse 86 05/22/2022 10:26 AM CLOTHING ROOM SUPERVISOR Temperature 36.7 ??C (98.1 ??F) 05/22/2022 10:[address] Respiratory Rate - - Oxygen Saturation 98% 05/22/2022 10:26 AM CLOTHING ROOM SUPERVISOR Inhaled Oxygen Concentration - - Weight 112 kg (247 lb 5.7 oz) 05/22/2022 10:26 A M CLOTHING ROOM SUPERVISOR Height - - Body Mass Index 35.25 03/21/2022 12:42 PM CLOTHING ROOM SUPERVISOR documented in this encounter Progress Notes * Ok Padilla M.D. - 05/22/2022 10:12 AM CST SUBJECTIVE CHIEF COMPLAINT/REASON FOR VISIT Surveillance of ascending aorta arch repair, descending aorta endograft repair, aortic root dilatation. HISTORY OF PRESENT ILLNESS Get is a pleasant 67-year-old gentleman from [place], [place]. He is known to me from multiple prior visits over the years. 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 Postoperatively, he hada provoked DVT within 1 week of surgery. 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 Previously, he had regular followup with Dr. Iglesias, most recently in 2017. At that time, he had stable enlargement of the residual aortic root at 58 mm and a well-healed ascending aortic graft. He had very minimal residual dissection localized posterior to the origin of the superior mesenteric artery. His abdominal aorta wasnoted to be completely normal below the takeoff of the renal arteries. Dr. Iglesias felt that given the very limited portion of the seneca aortic root (graft material above and a valve at the annular level), the consequences of the enlargement should be limited. Given the stability of the aortic root enlargement, he has been followed conservatively and then transitioned to my cardiology clinic. Most recent surveillance imaging has shown a very mild increase in the aortic root as noted on his CT chest dated September 08, 2020. This was measured at 60 mm compared with [address] from 2017. Most recent echocardiogram has shown a normally functioning aortic mechanical prosthesis, borderline enlarged LV chamber size and normal systolic function. Right ventricular function was normal with normal pulmonary pressures. Estimated central venous pressure normal.Compared with prior echo, there was no significant change. Since I saw him last, Get is followed in hematology for Hodgkin's lymphoma and he has received ABVD chemotherapy regimen. He is doing well without evidence of active malignancy at this time. Get had a couple minor concerns today that we reviewed. This includes erectile dysfunction. He hastried Viagra in the past without much effect. He is willing to give this another trial, but he is also interested in discussing other options such as a penis pump. A referral to Urology has been placed. He has not had spontaneous bleeding, stroke or TIA symptoms, chest pain or effort limiting dyspnea.He reports mild lower extremity swelling that is intermittent. He has not had orthopnea or PND. OBJECTIVE PHYSICAL EXAMINATION Vital Signs: Weight 112.2 kg, heart rate 86, blood pressure 138/80. General: A healthy-appearing gentleman sitting comfortably in no acute distress. Eyes: Anicteric. Ears, Nose And Throat: The mucous membranes are covered by surgical mask. Lungs: Clear to auscultation. Heart: Central venous pressure normal. Cardiac auscultation notable for a normally functioning aortic mechanical prosthesis without murmur. Extremities: Warm without edema. Skin: No visible ecchymosis, bruising or breakdown. Psych: Alert, oriented, responding appropriately. Neurologic: Afocal. ASSESSMENT / PLAN #1 Bicuspid aortic valve and thoracic aortic aneurysm, status post mechanical aortic prosthesis andaortic arch repair (2002, [place], [place]) #2 Type B dissection/intramural hematoma, status [...] #11 Hodgkin's lymphoma, status post ABVD chemotherapy regimen. PLAN: It was pleasure to visit with Get in followup. We discussed his CT imaging. There has been very slight increase in aortic root dimension from 58 mm to 60 mm over a time period of 4 years. He will be approaching 2 years out from the last CT scan in August of 2022, and we will plan for repeat CT and return visit to discuss. We discussed that his echocardiogram shows a normally functioning aortic mechanical prosthesis and no other concerning findings. If the CT imaging confirms expansion, I think it would be prudent to have Dr. Iglesias review the images. I have placed a referral to Urology to discuss management of erectile dysfunction. He has tried Viagra in the past without much effect. We will try a higher dose today. I have prescribed 50 mg, and he can titrate up to 100 mg if no effect. He would like to meet with Urology to discuss a penile prosthesis. His cardiovascular history is complex but not prohibitive to elective low risk surgery. He has remained quite stable over the last 10 years. No other medication changes today. I will see him back in 3 months when we review the CT scan. Ok Padilla M.D. CT CT Job ID: [id number] documented in this encounter Plan of Treatment Upcoming Encounters Date Type Department Care Team (Latest Contact Info) Description 05/28/2023 9:30 AM CLOTHING ROOM SUPERVISOR Clinical Communication Virtual Review in [place], [place] [address] [place] [address] 05/30/2023 11:00 AM CLOTHING ROOM SUPERVISOR Appointment Department of Laboratory Medicine and Pathology, [facility], in [address] [phone] Sole Read APRN, C.N.P., D.N.P. [address] [place] [phone] 05/30/2023 1:00 PM CLOTHING ROOM SUPERVISOR Office Visit Division of Hematology in [address] [phone] Sole Read APRN, C.N.P., D.N.P. [address] [place] [phone] 06/17/2023 10:30 AM CLOTHING ROOM SUPERVISOR Clinical Communication Virtual Review in [place], [place] [address] [place] [address] 06/18/2023 2:00 PM CLOTHING ROOM SUPERVISOR Office Visit Division of Endocrinology in [place], [place] [address] [place] [phone] Get Ragland APRN, C.N.P., D.N.P. [address] [place] [phone] 06/25/2023 10:30 AM CDT Appointment Department of Laboratory Medicine in [address] [phone] Bárbara Soto APRN, C.N.P. 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 Ok Padilla M.D. [facility] CT PROCEDURES * (ABNORMAL) Lipid Panel (07/19/2022 10:40 AM CDT) Triglycerides 186(H) mg/dL 07/19/2022 11:18 AM CDT [facility] Comment: ----REFERENCE VALUE---- Normal: <150 mg/dL Borderline High: 150-199 mg/dL High: 200-499 mg/dL Very High: > or =500 mg/dL Cholesterol, Total 137 mg/dL 2022 11:18 AM CDT [facility] Comment: ----REFERENCE VALUE---- Desirable: < 200 mg/dL Borderline High: 200 - 239 mg/dL High: > or = 240 mg/dL Cholesterol, LDL, Calculated 66 mg/dL 07/19/2022 11:18 AM CDT [facility] Comment: ----REFERENCE VALUE---- Desirable: <100 mg/dL Above Desirable: 100-129 mg/dL Borderline High: 130-159 mg/dL High: 160-189 mg/dL Very High: >=190 mg/dL ----ADDITIONAL INFORMATION---- LDL cholesterol calculated using the Posey/NIH equation. Cholesterol, HDL 40 >=40 mg/dL 07/20/19 11:18 AM CDT [facility] Cholesterol, Non-HDL, Calculated 97 mg/dL 07/19/2022 11:18 AM CDT [facility] Comment: ----REFERENCE VALUE---- Desirable: <130 mg/dL Above Desirable: 130-159 mg/dL Borderline High: 160-189 mg/dL High: 190-219 mg/dL Very High: > or =220 mg/dL Fasting (8 HR or more) yes 07/19/2022 11:01 AM CDT [facility] Comment:REVISED RESULTS Blood (Blood, Venous) 07/19/2022 10:40 AM CDT 07/19/2022 10:44 AM CDT Ok Padilla M.D. LAB BLOOD ADD-ON [facility] [address] [place] [phone], [facility] CN[facility] in [address] [address] * Testosterone, Total and Free (07/19/2022 10:40 AM CDT) Testosterone, Free, S 10.3 3.47 - 13.0 ng/dL 07/23/2022 1:31 PM CDT [facility] Comment: ----ADDITIONAL INFORMATION---- This test was developed and its performance characteristics determined by [facility] in a manner consistent with CLIA requirements. This test has not been cleared or approved by the U.S. Food and Drug Administration. Testosterone, Total by Mass Spectrometry, Serum 387 240 - 950 ng/dL 07/22/2022 1:01 PM T [facility] Comment: ----ADDITIONAL INFORMATION---- Testing performed by Liquid Chromatography-Tandem Mass Spectrometry (LC-MS/MS). This test was developed and its performance characteristics determined by [facility] in a manner consistent with CLIA requirements. This test has not been cleared or approved by the U.S. Food and Drug Administration. Blood (Blood, Venous) 07/19/2022 10:40 AM CDT 07/20/2022 7:01 AM CDT Ok Padilla M.D. LAB BLOOD NON ADD- ON [facility] [address] [place] [address] [facility] [address] [place] [address] * (ABNORMAL) Glucose, Fasting (07/19/2022 10:39 AM CDT) Glucose, P 109(H) 70 - 100 mg/dL 07/19/2022 11:14 AM CDT [facility] Last Intake 10 hr 07/19/2022 11:01 AM CDT [facility] Comment: REVISED RESULTS ----PREVIOUSLY REPORTED ---- 14, Flagged as: Normal (Reported 07/19/2022 10:46) Blood (Blood, Venous) 07/19/2022 10:39 AM CDT 07/19/2022 10:45 AM CDT Ok Padilla M.D. LAB BLOOD NON ADD- ON [facility] [address] [place] [phone], [facility] in [address] [address] documented in this encounter Visit Diagnoses Diagnosis Dilated Aortic Root (HCC)- Primary Aneurysm Thoracic Aorta Personal History Intermediate (Current) Anticoagulant Treatment Dysfunction Erectile Abnormal Result Of Other Cardiovascular Function Study Dilated Aortic Root (HCC) Aneurysm Thoracic Aorta Personal History Intermediate (Current) Anticoagulant Treatment Abnormal Result Of Other Cardiovascular Function Study documented in this encounter Additional Health Concerns Infection Onset Date Last Indicated Resolved Time Protective Environment 07/19/2022 07/19/2022 Assessment Noted Time PHQ-9 Depression Total Score: 0 01/01/20 16 12:53 PM CDT documented as of this encounter Care Teams Pocket Builder Relationship Specialty Start Date End Date Elsewhere, Pcp PCP - General Family Medicine 11/27/20 documented as of this encounter
--- OUTSIDE RECORDS SUMMARY | 2023-05-01 16:10 | XMS_ITS | Encounter Summary ---
Author Name Unknown Organization [facility] Address [address] [place] [address] Care Team Providers Care Welding Machine Operator Thermit Name Role Phone Elsewhere, Pcp Primary Care Provider Unavailabl e Reason for Visit * Reason Comments Med Refill Encounter Details Date Type Department Care Team (Late st Contact Info) Description 06/27/2022 Refill Department of Cardiovascular Diseases in [address] [phone] Ok Padilla M.D. 200 [place] [phone] Med Refill Social History Tobacco Use Types [...] you attend chur or quaker services? Never 12/04/2021 Do you belong to any clubs o r organizations such as faith groups, unions, fraternal or athletic groups, or [...] care, and heating? Not very hard 12/04/2021 [facility] of Occupat ionut Health - Occupational Stress Questionnaire Answer [...] in a long term (including now)? No 12/04/2021 Nutrition Answer Date [...] Master's degree (e.g., MA, MS, Starla, MEd, RIGGING FOREMAN, DEBRA) 09/16/2018 Sex and Gender Information Value Date Recorded Sex Assigned at Male 10/08/2017 8:25 AM CDT Gender Identity Male 10/08/2017 8:25 AM CDT Sexual Orientation Straight 10/08/2017 8: 25 AM CDT documented as of this encounter Plan of Treatment Upcoming Encounters Date Type Department Care Team (Latest Contact Info) Description 05/28/2023 9:30 AM CORPORATE TRAINING MANAGER Clinical Communication Virtual Review in [place], [place] [address] [place] [address] 05/30/2023 11:00 AM CORPORATE TRAINING MANAGER Appointment Department of Laboratory Medicine and Pathology, [facility], in [place], [place] [address] [place] [phone] Sole Read APRN, C.N.P., D.N.P. [address] [place] [phone] 05/30/2023 1:00 PM CORPORATE TRAINING MANAGER Office Visit Division of Hematology in [place], [place] [address] [place] [phone] Sloe Read APRN, C.N.P., D.N.P. [address] [place] [phone] 06/17/2023 10:30 AM CORPORATE TRAINING MANAGER Clinical Communication Virtual Review in [place], [place] 200 [place] [address] 06/18/2023 2:00 PM CORPORATE TRAINING MANAGER Office Visit Division of Endocrinology in [place], [place] [address] [place] [phone] Get Ragland APRN, C.N.P., D.N.P. [address] [place] [phone] 06/25/2023 10:30 AM CDT Appointment Department of Laboratory Medicine in [address] [phone] Bárbara Soto APRN, C.N.P. [address] [place] [phone] documented as of this encounter Visit Diagnoses Not on filedocumented in this encounter Additional Health Concerns Assessment Noted Time PHQ-9 Depression Total Score: 0 01/01/20 16 12:53 PM CDT documented as of this encounter Care Teams Welding Machine Operator Thermit Relationship Specialty Start Date End Date Elsewhere, Pcp PCP - General Family Medicine 11/27/20 documented as of this encounter
--- OUTSIDE RECORDS SUMMARY | 2023-05-01 16:10 | XMS_ITS | Encounter Summary ---
Author Name Unknown Organization [facility] Address [address] [place] [address] Care Team Providers Care Assistant Account Manager Name Role Phone Elsewhere, Pcp Primary Care Provider Unavailabl e Reason for Referral * Outpatient (Routine) - Closed Specialty Diagnoses / Procedures Referred By Nuvia t Referred To Contact Hematology Oncology Sole Read APRN, C.N.P., D.N.P. [address] [place] [phone] [facility] Referral ID Status Reason Start Date Expiration Date Visits Re quested Visits Authorized [id number] Closed 07/22/2022 07/21/2025 1 1 * MRI/CAT/PET Scan (Routine) - Closed Specialty Diagnoses / Procedures Referred By Contdiana de leon Referred To Contact Radiology Diagnoses Hodgkin Lymphoma Unspecified Lymph Nodes Of Axilla And Upper Limb (HCC) Procedures CT Abdomen Pelvis with IV Contrast Sole Read APRN, C.N.P., D.N.P. [address] [place] [phone] [facility] Referral ID Status Reason Start Date Expiration Date Visits Re quested Visits Authorized [id number] Closed 07/22/2022 07/22/2023 1 1 * MRI/CAT/PET Scan (Routine) - Closed Specialty Diagnoses / Procedures Referred By Contac t Referred To Contact Radiology Diagnoses Hodgkin Lymphoma Unspecified Lymph Nodes Of Axilla And Upper Limb (HCC) Procedures CT Chest with IV Contrast Sole Read APRN C.N.PRebecca, D.N.P. [address] [place] [phone] [facility] Referral ID Status Reason Start Date Expiration Date Visits Re quested Visits Authorized [id number] Closed 07/22/2022 07/22/2023 1 1 Reason for Visit * Outpatient (Routine) - Closed Specialty Diagnoses / Procedures Referred By Nuvia t Referred To Contact Hematology Oncology Sole Read APRN C.N.PRebecca, D.N.P. [address] [place] [phone] [facility] Referral ID Status Reason Start Date Expiration Date Visits Re quested Visits Authorized [id number] Closed 03/21/2022 03/20/2025 1 1 Encounter Details Date Type Department Care Team (Late st Contact Info) Description 07/22/2022 11:00 AM CDT Office Visit Division of Hematology in [place], [place] [address] [place] [phone] Sole Read APRN, C.N.PRebecca, D.N.P. [address] [place] [phone] Hodgkin Lymphoma Unspecified Lymph Nodes Of Axilla [...] any clubs o r organizations such as taoist groups, unions, fraternal or athletic groups, or [...] and heating? Not hard at all 07/16/2022 [facility] [place] of Occupat ional Health - Occupational Stress [...] place to sleep or slept in a usp (including now)? No 07/16/2022 Nutrition Answer Date [...] Master's degree (e.g., MA, MS, Starla, MEd, PHYSIOTHERAPY PRACTICE MANAGER, DEBRA) 09/16/2018 Sex and Gender Information Value Date Recorded Sex Assigned at Male 10/08/2017 8:25 AM CDT Gender Identity Male 10/08/2017 8:25 AM CDT Sexual Orientation Straight 10/08/2017 8: 25 AM CDT documented as of this encounter Last Filed Vital Signs Vital Sign Reading Time Taken Comments Blood Pressure 113/67 07/22/2022 10:51 AM CDT Pulse 83 07/22/2022 10:51 AM CDT Temperature 35.9 ??C (96.6 ??F) 07/22/2022 10:51 AM C DT Respiratory Rate - - Oxygen Saturation - - Inhaled Oxygen Concentration - - Weight 112 kg (247 lb 12.8 oz) 07/22/2022 10:51 AM CDT Height 178.7 cm (5' 10.35) 07/22/2022 10:51 AM CDT Body Mass Index 35.2 07/22/2022 10:51 AM CDT documented in this encounter Progress Notes * Sole Read APRN, C.N.P., D.N.P. 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 Benz Classical Hodgkin Lymphoma HISTORY OF PRESENT ILLNESS [...] Chest CT 06/07/20 First ABVD infusion in [place] 09/08/2020 CT chest IMPRESSION: 1. Interval increase in bulky right axillary lymphadenopathy. No mediastinal or hilar lymphadenopathy. 2. 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 Otherwise, patient denies fever, chills, drenching night sweats, unintentional weight loss, palpable adenopathy, fatigue, changes to appetite, nausea/vomiting, diarrhea, constipation, changes to bladder habits, neuropathy, palpitations, chest pain, shortness of breath, mouth sores, antibiotic use, hospitalizations, ER visits, changes to medical or surgical history, dizziness, and unexplained rashor pruritus. ECOG score 0. The following portions of the patient's history were reviewed and updated as appropriate: allergies, current medications, family history, medical history, social history, surgical history, and problem list. REVIEW OF SYSTEMS Constitutional: Positive for fatigue and weight gain of more than 10 pounds. ENT: Positive for difficulty hearing. Cardiovascular: Positive for pain in the calf muscles when walking. Musculoskeletal: Positive for pain or stiffness in the joints, joint swelling and muscle pain/stiffness. Psychiatric/Behavioral: Positive for change in sexual drive (decreased libido) and erectile dysfunction. The following systems were negative: Skin, Eyes, Respiratory, Gastrointestinal, Hematologic OBJECTIVE BP 113/67 (BP Location: Right arm, Patient Position: Sitting, Cuff Size: Regular) Pulse 83 Temp(!) 35.9 ??C (Tympanic) Ht 178.7 cm Wt 112 kg BMI 35.20 kg/m?? Wt Readings from Last 3 Encounters: 07/22/22 112 kg 07/03/22 113 kg 05/22/22 112 kg PHYSICAL EXAM General: Well-nourished, in good [...] I have reviewed the recent relevant laboratory studies. Labs are unremarkable; LDH has consistentlybeen elevated secondary to his arthritis. ASSESSMENT / PLAN #1 Hodgkin Lymphoma Unspecified Lymph Nodes Of Axilla And Upper Limb (HCC) It was a pleasure seeing Mr. Ovalles in clinic this morning. I reviewed patient's labs with him which include a normal CBC and stable LDH which is elevated secondary to his arthritis. Patient deniesB symptoms as well. I do not appreciate any lymphadenopathy or hepatosplenomegaly on physical examination. Given this, I see no clinical, biochemical, or physical examination evidence of relapse of his lymphoma. Will continue on a course of surveillance. I will plan to see patient back in 4 months with labs, CTs, and H&P. Patient understands he should contact me in the interim if he develops any concerning symptoms or if he has any concerns. PLAN: Follow-up in 4 months with labs, CTs, and H&P. Clinical findings and plan communicated with Dr. Benz. Education We discussed the diagnosis and treatment plan in detail. The patient expressed understanding and agreement of the content and plan. No apparent learning barriers were identified; learning preferencesinclude listening. Pt allowed to ask questions; all questions answered. I personally spent a total 30 minutes face to face with the patient in counseling and discussion and/or coordination of care as described above. documented in this encounter Plan of Treatment Upcoming Encounters Date Type Department Care Team (Latest Contact Info) Description 05/28/2023 9:30 AM SEWER HAND Clinical Communication Virtual Review in [place], [place] 200 [place] [address] 05/30/2023 11:00 AM SEWER HAND Appointment Department of Laboratory Medicine and Pathology, [facility], in [place], [place] [address] [place] [phone] Sole Read APRN, C.N.P., D.N.P. [address] [place] [phone] 05/30/2023 1:00 PM SEWER HAND Office Visit Division of Hematology in [place], [place] [address] [place] [phone] Sole Read APRN, C.N.P., D.N.P. [address] [place] [phone] 06/17/2023 10:30 AM SEWER HAND Clinical Communication Virtual Review in [place], [place] [address] [place] [address] 06/18/2023 2:00 PM SEWER HAND Office Visit Division of Endocrinology in [address] [phone] Get Ragland APRN, C.N.P., D.N.P. [address] [place] [phone] 06/25/2023 10:30 AM CDT Appointment Department of Laboratory Medicine in [address] [phone] Bárbara Soto APRN, C.N.P. [address] [place] [phone] Scheduled Referrals Name Type Priority Associated Diagnoses Order Schedule Hematology office visit (clinic) [place] [facility]; Lymphoma; General Outpatient Referral Routine Expected: 11/21/2022 (Approximate), Expires: 10/22/2023 documented as of this encounter Results * CT Abdomen Pelvis [...] APRN, C.N.P., D.N.P. IMG CT PROCEDURES * Sedimentation Rate (11/26/2022 8:59 AM CDT) Sedimentation Rate, B 2 2 - 20 mm/h 11/26/2022 10:37 AM CDT DTL Blood (Blood, Venous) 11/26/2022 8:59 AM CDT 11/26/2022 9:20 AM CDT Sole Read APRN, C.N.P., D.N.P. LAB BLOOD ADD-ON [facility] [address] [place] [address], [facility] [address] [place] [address] * Potassium (11/26/2022 8:59 AM CDT) Potassium, S 4.4 3.6 - 5.2 mmol/L 11/26/2022 10:52 AM CDT DTL Blood (Blood, Venous) 11/26/2022 8:59 AM CDT 11/26/2022 9:36 AM CDT Bindu Perez APRNN.Sim., D.N.P. LAB BLOOD ADD-ON Performing Organization Address City/[facility] Co de Phone Number [facility] [address] [place] [address], [facility] [address] [place] [address] * (ABNORMAL) LD (Lactate Dehydrogenase) (11/26/2022 8:59 AM CDT) Lactate Dehydrogenase (LD), S 338(H) 122 - 222 U/L 11/26/2022 10:52 AM CDT DTL Blood (Blood, Venous) 11/26/2022 8:59 AM CDT 11/26/2022 9:36 AM CDT Bindu Perez APRNN.P., D.N.P. LAB BLOOD NON ADD-ON Performing Organization Address [facility] de Phone Number [facility] [address] [place] [address], [facility] 200 [place] [address] * Creatinine with Estimated GFR (11/26/2022 8:59 AM CDT) Creatinine 1.16 0.74 - 1.35 mg/dL 11/26/2022 10:52 AM CDT DTL Estimated GFR (eGFR) 70 >=60 mL/min/BSA 11/26/2022 10:52 AM CDT DTL Comment: Estimated GFR calculated using the 2020 CKD_EPI creatinine equation. Blood (Blood, Venous) 11/26/2022 8:59 AM CDT 11/26/2022 9:36 AM CDT Lanny Perez APRN.N.P., D.N.P. LAB BLOOD ADD-ON [facility] [address] [place] [address], [facility] DTL [facility] [address] [place] [address] * (ABNORMAL) CBC with Differential, Blood (11/26/2022 8:59 AM CDT) Hemoglobin 14.0 13.2 - 16.6 g/dL 11/26/2022 [...] LAB BLOOD ADD-ON [facility] [address] [place] [address], [facility] [address] [place] [address] [facility] [address] [place] [address] * Calcium, Total (11/26/2022 8:59 AM CDT) Calcium, Total, S 8.8 8.8 - 10.2 mg/dL 11/26/2022 10:52 AM CDT DTL Blood (Blood, Venous) 11/26/2022 8:59 AM CDT 11/26/2022 9:36 AM CDT Bindu Perez APRNN.P., D.N.P. LAB BLOOD ADD-ON Performing Organization Address City/[facility]/ZIP Co de Phone Number [facility] [address] [place] [address], [facility] [address] [place] [address] * Bilirubin, Total (11/26/2022 8:59 AM CDT) Bilirubin, Total, S 1.2 <=1.2 mg/dL 11/26/2022 10:52 AM CDT DTL Blood (Blood, Venous) 11/26/2022 8:59 AM CDT 11/26/2022 9:36 AM CDT Lanny Perez APRN.N.P., D.N.P. LAB BLOOD ADD-ON [facility] [address] [place] [address], [facility] [address] [place] [address] * AST (Aspartate Aminotransferase) (11/26/2022 8:59 AM CDT) Aspartate Aminotransferase (AST), S 26 8 - 48 U/L 11/26/2022 10:52 AM CDT DTL Blood (Blood, Venous) 11/26/2022 8:59 AM CDT 11/26/2022 9:36 AM CDT Lanny Perez APRN.N.P., D.N.P. LAB BLOOD ADD-ON [facility] [address] [place] [address], [facility] [address] [place] [address] * Alkaline Phosphatase (11/26/2022 8:59 AM CDT) Alkaline Phosphatase, S 48 40 - 129 U/L 11/26/2022 10:52 AM CDT DTL Blood (Blood, Venous) 11/26/2022 8:59 AM CDT 11/26/2022 9:36 AM CDT Sole Read APRN C.N.P., D.N.P. LAB BLOOD ADD-ON [facility] [address] [place] [address], [facility] [address] [place] [address] documented in this encounter Visit Diagnoses Diagnosis Hodgkin Lymphoma Unspecified Lymph Nodes Of Axilla And Upper Limb (HCC)- Primary Hodgkin Lymphoma Unspecified Lymph Nodes Of Axilla And Upper Limb (HCC) documented in this encounter Additional Health Concerns Infection Onset Date Last Indicated Resolved Time Protective Environment 07/19/2022 07/19/2022 Assessment Noted Time PHQ-9 Depression Total Score: 0 01/01/20 16 12:53 PM CDT documented as of this encounter Care Teams Assistant Account Manager Relationship Specialty Start Date End Date Elsewhere, Pcp PCP - General Family Medicine 11/27/20 documented as of this encounter
--- OUTSIDE RECORDS SUMMARY | 2023-05-01 16:10 | XMS_ITS | Encounter Summary ---
Author Name Unknown Organization [facility] Address [address] [place] [address] Care Team Providers Care Deputy Administrator Name Role Phone Elsewhere, Pcp Primary Care Provider Unavailabl e Encounter Details Date Type Department Care Team (Latest Contact Info) Description 06/19/2022 11:36 AM MECHATRONICS ENGINEER - 06/19/2022 11:59 PM [facility] Hospital Encounter Department of Laboratory Medicine in [address] [phone] Bárbara Soto, JASON, C.N.P. 200 [place] [phone] Medication Therapy Longterm Not Anticoagulant Discharge Disposition: Home or Self [...] How often do you attend chur or amish services? Never 12/04/2021 Do you belong to any clubs o r organizations such as pentecostalism groups, unions, fraternal or athletic groups, or [...] care, and heating? Not very hard 12/04/2021 [facility] of Occupat ional Health - Occupational Stress [...] slept in a mcfp (including now)? No 12/04/2021 Nutrition Answer Date [...] Master's degree (e.g., MA, MS, Starla, MEd, BIG DATA PLATFORM ARCHITECT, DEBRA) 09/16/2018 Sex and Gender Information Value [...] 2,000 Units by mouth daily. 0 05/02/2014 loperamide (IMODIUM A-D) 2 mg tablet Take [...] EVERY DAY 180 tablet 3 08/01/2021 09/26/2022 furosemide (LASIX) 20 mg tablet TAKE 1 TABLET BY MOUTH DAILY. 90 tablet 3 02/05/2021 06/27/2022 labetalol (NORMODYNE) 200 mg tablet Take 400 [...] (Latest Contact Info) Description 05/28/2023 9:30 AM MECHATRONICS ENGINEER Clinical Communication Virtual Review in [address] [address] 05/30/2023 11:00 AM MECHATRONICS ENGINEER Appointment Department of Laboratory Medicine and Pathology, [facility] in [address] [phone] Sole Read APRN, C.N.P., D.N.P. [address] [place] [phone] 05/30/2023 1:00 PM MECHATRONICS ENGINEER Office Visit Division of Hematology in [address] [phone] Sole Read APRN, C.N.P., D.N.P. [address] [place] [phone] 06/17/2023 10:30 AM MECHATRONICS ENGINEER Clinical Communication Virtual Review in [address] [address] 06/18/2023 2:00 PM MECHATRONICS ENGINEER Office Visit Division of Endocrinology in [place], [place] [address] [place] [phone] Get Ragland APRN, C.N.P., D.N.P. [address] [place] [phone] 06/25/2023 10:30 AM CDT Appointment Department of Laboratory Medicine in [address] [phone] Bárbara Soto APRN, C.N.P. [address] [place] [phone] documented as of this encounter Procedures Procedure Name Priority Date/Time Associated Diagnosis Comments CBC WITH DIFFERENTIAL, B Routine 06/19/2022 11:57 AM MECHATRONICS ENGINEER Medication Therapy Longterm Not Anticoagulant ASPARTATE AMINOTRANSFERASE (AST), S/P Routine 06/19/2022 11:57 AM MECHATRONICS ENGINEER Medication Therapy Longterm Not Anticoagulant CREATININE WITH EGFR, S/P Routine 06/19/2022 11:57 AM MECHATRONICS ENGINEER Medication Therapy Supervisor Harvesting Not Anticoagulant documented in this encounter Results * Creatinine with Estimated GFR (06/19/2022 11:57 AM MECHATRONICS ENGINEER) Creatinine 1.11 0.74 - 1.35 mg/dL 06/19/2022 12:27 PM MECHATRONICS ENGINEER CNFL Estimated GFR (eGFR) 74 >=60 mL/min/BSA 06/19/2022 12:27 PM MECHATRONICS ENGINEER CNFL Comment: Estimated GFR calculated using the 2020 CKD_EPI creatinine equation. Blood (Blood, Venous) 06/19/2022 11:57 AM MECHATRONICS ENGINEER 06/19/2022 12:00 PM MECHATRONICS ENGINEER Bárbara Soto APRN, C.N.P. LAB BLOOD ADD-ON [facility] [address] [place] [address], [address] [address] * AST (Aspartate Aminotransferase) (06/19/2022 11:57 AM MECHATRONICS ENGINEER) Aspartate Aminotransferase (AST), P 29 8 - 48 U/L 06/19/2022 12:27 PM MECHATRONICS ENGINEER CNFL Blood (Blood, Venous) 06/19/2022 11:57 AM MECHATRONICS ENGINEER 06/19/2022 12:00 PM MECHATRONICS ENGINEER Macey Sawant APRNPRebecca LAB BLOOD ADD-ON Performing Organization Address City/[facility]/ZIP Co de Phone Number [facility] [address] [place] [phone], [facility] in [address] [address] * (ABNORMAL) CBC with Differential, Blood (06/19/2022 11:57 AM MECHATRONICS ENGINEER) Hemoglobin 14.8 13.2 - 16.6 g/dL 06/19/2022 12:14 PM MECHATRONICS ENGINEER CNFL Hematocrit 43.9 38.3 - 48.6 % 06/19/2022 12:14 PM MECHATRONICS ENGINEER CNFL Erythrocytes 4.74 4.35 - 5.65 x10(12)/L 06/19/2022 12:14 PM MECHATRONICS ENGINEER CNFL MCV 92.6 78.2 - 97.9 fL 06/19/2022 12:14 PM MECHATRONICS ENGINEER CNFL RBC Distrib Width 13.5 11.8 - 14.5 % 06/19/2022 12:14 PM MECHATRONICS ENGINEER CNFL Platelet Count 123(L) 135 - 317 x10(9)/L 06/19/2022 12:14 PM MECHATRONICS ENGINEER CNFL Leukocytes 4.3 3.4 - 9.6 x10(9)/L 06/19/2022 12:14 PM MECHATRONICS ENGINEER CNFL Neutrophils 2.34 1.56 - 6.45 x10(9)/L 06/19/2022 12:14 PM MECHATRONICS ENGINEER CNFL Lymphocytes 1.33 0.95 - 3.07 x10(9)/L 06/19/2022 12:14 PM MECHATRONICS ENGINEER CNFL Monocytes 0.37 0.26 - 0.81 x10(9)/L 06/19/2022 12:14 PM MECHATRONICS ENGINEER CNFL Eosinophils 0.26 0.03 - 0.48 x10(9)/L 06/19/2022 12:14 PM MECHATRONICS ENGINEER CNFL Basophils <0.04 0.01 - 0.08 x10(9)/L 06/19/2022 12:14 PM MECHATRONICS ENGINEER CNFL Blood (Blood, Venous) 06/19/2022 11:57 AM MECHATRONICS ENGINEER 06/19/2022 12:00 PM MECHATRONICS ENGINEER Bárbara Soto APRN C.N.P. LAB BLOOD ADD-ON Performing Organization Address City/State/[facility] Co de Phone Number [facility] [address] [place] [phone], [facility] CNFL [facility] in [address] [address] documented in this encounter Visit Diagnoses Diagnosis Medication Therapy Longterm Not Anticoagulant documented in this encounter Additional Health Concerns Assessment Noted Time PHQ-9 Depression Total Score: 0 01/01/20 16 12:53 PM CDT documented as of this encounter Care Teams Deputy Administrator Relationship Specialty Start Date End Date Elsewhere, Pcp PCP - General Family Medicine 11/27/20 documented as of this encounter
--- OUTSIDE RECORDS SUMMARY | 2023-05-01 16:10 | XMS_ITS | Encounter Summary ---
Author Name Unknown Organization [facility] Address 200 [place] [address] Care Team Providers Care Mechanical Integrity Specialist Name Role Phone Elsewhere, Pcp Primary Care Provider Unavailabl e Encounter Details Date Type Department Care Team (Latest Contact Info) Description 07/19/2022 10:22 AM CDT - 07/19/2022 11:59 PM CDT Hospital Encounter Department of Laboratory Medicine in [address] [phone] Bárbara Soto, JASON, C.N.P. 200 [place] [address] Arthritis Psoriatic (HCC); Hodgkin Lymphoma Unspecified Lymph Nodes Of Axilla And Upper Limb (HCC); Dysfunction Erectile Discharge Disposition: Home or Self Care Social [...] How often do you attend chur or zoroastrianism services? Never 07/16/2022 Do you [...] and heating? Not hard at all 07/16/2022 [facility] - Occupational Stress [...] Master's degree (e.g., MA, MS, Starla, MEd, PLAYER MANAGER, DEBRA) 09/16/2018 Sex and Gender Information [...] (Latest Contact Info) Description 05/28/2023 9:30 AM INTELLIGENCE CHIEF Clinical Communication Virtual Review in [place], [place] 200 [place] [address] 05/30/2023 11:00 AM INTELLIGENCE CHIEF Appointment Department of Laboratory Medicine and Pathology, [facility] in [address] [phone] Sole Read APRN, C.N.P., D.N.P. [address] [place] [phone] 05/30/2023 1:00 PM INTELLIGENCE CHIEF Office Visit Division of Hematology in [address] [phone] Sole Read APRN, C.N.P., D.N.P. [address] [place] [phone] 06/17/2023 10:30 AM INTELLIGENCE CHIEF Clinical Communication Virtual Review in [place], [place] 200 [place] [address] 06/18/2023 2:00 PM INTELLIGENCE CHIEF Office Visit Division of Endocrinology in [place], [place] [address] [place] [phone] Get Ragland APRN, C.N.P., D.N.P. [address] [place] [phone] 06/25/2023 10:30 AM CDT Appointment Department of Laboratory Medicine in [address] [phone] Bárbara Soto APRN, Lanny.N.P. [address] [place] [phone] documented as of this encounter Procedures Procedure Name Priority Date/Time Associated Diagnosis Comments LIPID PANEL, S Routine 07/19/2022 10:40 AM CDT Dysfunction Erectile CBC WITH DIFFERENTIAL, B Routine 023 10:40 AM CDT Arthritis Psoriatic (HCC) TESTOSTERONE, TOT AND FR, S Routine 07/19/2022 10:40 AM CDT Dysfunction Erectile C-REACTIVE PROTEIN (CRP), S/P Routine 07/19/2022 10:40 AM CDT Arthritis Psoriatic (HCC) ASPARTATE AMINOTRANSFERASE (AST), S/P Routine 07/19/2022 10:40 AM CDT Hodgkin Lymphoma Unspecified Lymph Nodes Of Axilla And Upper Limb (HCC) POTASSIUM, S/P Routine 07/19/2022 10:40 AM CDT Hodgkin Lymphoma Unspecified Lymph Nodes Of Axilla And Upper Limb (HCC) ALKALINE PHOSPHATASE, S/P Routine 07/19/2022 10:40 AM CDT Hodgkin Lymphoma Unspecified Lymph Nodes Of Axilla And Upper Limb (HCC) CREATININE WITH EGFR, S/P Routine 07/19/2022 10:40 AM CDT Arthritis Psoriatic (HCC) CALCIUM, TOT, S/P Routine 07/19/2022 10: 40 AM CDT Hodgkin Lymphoma Unspecified Lymph Nodes Of Axilla And Upper Limb (HCC) BILIRUBIN, TOT, S/P Routine 07/19/2022 1 0:40 AM CDT Hodgkin Lymphoma Unspecified Lymph Nodes Of Axilla And Upper Limb (HCC) SEDIMENTATION RATE, B Routine 07/19/2022 10:39 AM CDT Arthritis Psoriatic (HCC) LACTATE DEHYDROGENASE (LD), S Routine 07/19/2022 10:39 AM CDT Hodgkin Lymphoma Unspecified Lymph Nodes Of Axilla And Upper Limb (HCC) GLUCOSE, FASTING, S/P Routine 07/19/2022 10:39 AM CDT Dysfunction Erectile documented in this encounter Results * (ABNORMAL) Lipid Panel (07/19/2022 10:40 AM [...] 40 >=40 mg/dL 07/20/19 11:18 AM CDT [facility] Cholesterol, Non-HDL, Calculated 97 mg/dL 07/19/2022 11:18 AM CDT [facility] Comment: ----REFERENCE VALUE---- Desirable: <130 mg/dL Above Desirable: 130-159 mg/dL Borderline High: 160-189 mg/dL High: 190-219 mg/dL Very High: > or =220 mg/dL Fasting (8 HR or more) yes 07/19/2022 11:01 AM CDT [facility] Comment:REVISED RESULTS Blood (Blood, Venous) 07/19/2022 10:40 AM CDT 07/19/2022 10:44 AM CDT Ok Padilla M.D. LAB BLOOD ADD-ON [facility] [address] [place] [address], [facility] [place] [address] * Testosterone, Total and Free (07/19/2022 10:40 AM CDT) [facility] Testosterone, Free, S 10.3 3.47 - 13.0 ng/dL 07/23/2022 1:31 PM T [facility] Comment: ----ADDITIONAL INFORMATION---- This test was developed and its performance characteristics determined by [facility] in a manner consistent with CLIA requirements. This test has not been cleared or approved by the U.S. Food and Drug Administration. Testosterone, Total by Mass Spectrometry, Serum 387 240 - 950 ng/dL 07/22/2022 1:01 PM CDT [facility] Comment: ----ADDITIONAL INFORMATION---- Testing performed by Liquid Chromatography-Tandem Mass Spectrometry (LC-MS/MS). This test was developed and its performance characteristics determined by [facility] in a manner consistent with CLIA requirements. This test has not been cleared or approved by the U.S. Food and Drug Administration. Blood (Blood, Venous) 07/19/2022 10:40 AM CDT 07/20/2022 7:01 AM CDT Ok Padilla M.D. LAB BLOOD NON ADD- ON [facility] [address] [place] [address] [facility] [address] [place] [address] * Potassium (07/19/2022 10:40 AM CDT) Potassium, P 4.5 3.6 - 5.2 mmol/L 07/19/2022 11:18 AM CDT [facility] Blood (Blood, Venous) 07/19/2022 10:40 AM CDT 07/19/2022 10:44 AM CDT Bindu Perez APRNN.P., D.N.P. LAB BLOOD ADD-ON [address] [address], [facility] in [address] [address] * Calcium, Total (07/19/2022 10:40 AM CDT) Calcium, Total, P 9.0 8.8 - 10.2 mg/dL 07/19/2022 11:18 AM CDT [facility] Blood (Blood, Venous) 07/19/2022 10:40 AM CDT 07/19/2022 10:44 AM CDT Lanny Perez APRN.N.P., D.N.P. LAB BLOOD ADD-ON [address] [address], [facility] CNFL [facility] in [address] [address] * (ABNORMAL) Bilirubin, Total (07/19/2022 10:40 AM CDT) Bilirubin, Total, P 1.6(H) <=1.2 mg/dL 07/19/2022 11:18 AM CDT [facility] Blood (Blood, Venous) 07/19/2022 10:40 AM CDT 07/19/2022 10:44 AM CDT Lanny Perez APRN.N.P., D.N.P. LAB BLOOD ADD-ON [address] [address], [address] [address] * AST (Aspartate Aminotransferase) (07/19/2022 10:40 AM CDT) Aspartate Aminotransferase (AST), P 32 8 - 48 U/L 07/19/2022 11:18 AM CDT [facility] Blood (Blood, Venous) 07/19/2022 10:40 AM CDT 07/19/2022 10:44 AM CDT Lanny Perez APRN.N.P., D.N.P. LAB BLOOD ADD-ON [address] [address], [address] [address] * Alkaline Phosphatase (07/19/2022 10:40 AM CDT) Alkaline Phosphatase, P 52 40 - 129 U/L 07/19/2022 11:18 AM CDT [facility] Blood (Blood, Venous) 07/19/2022 10:40 AM CDT 07/19/2022 10:44 AM CDT Bindu Perez APRNN.P., MichaelNRebeccaPRebecca LAB BLOOD ADD-ON [address] [address], [facility] CNFL [facility] in [address] [address] * Creatinine with Estimated GFR (07/19/2022 10:40 AM CDT) Creatinine 1.16 0.74 - 1.35 mg/dL 07/19/2022 11:18 AM CDT [facility]FL Estimated GFR (eGFR) 70 >=60 mL/min/BSA 07/19/2022 11:18 AM CDT [place] Comment: Estimated GFR calculated using the 2020 CKD_EPI creatinine equation. Blood (Blood, Venous) 07/19/2022 10:40 AM CDT 07/19/2022 10:44 AM CDT Lanny Sawant APRN.N.P. LAB BLOOD ADD-ON [address] [address], [facility] CNFL [facility] in [address] [address] * CRP (C-Reactive Protein) (07/19/2022 10:40 AM CDT) C-Reactive Protein (CRP), P <3.0 <5.0 mg/L 07/19/2022 11:18 AM CDT [place] Blood (Blood, Venous) 07/19/2022 10:40 AM CDT 07/19/2022 10:44 AM CDT Lanny Sawant APRN.N.P. LAB BLOOD ADD-ON [address] [place] [address], [facility] CNFL [facility] in [address] [address] * (ABNORMAL) CBC with Differential, Blood (07/19/2022 10:40 AM CDT) Hemoglobin 14.9 13.2 - 16.6 g/dL 07/19/2022 11:23 AM CDT [facility] Hematocrit 44.5 38.3 - 48.6 % 07/19/2022 11:23 AM CDT [facility] Erythrocytes 4.79 4.35 - 5.65 x10(12)/L 07/19/2022 11:23 AM CDT [facility] MCV 92.9 78.2 - 97.9 fL 07/19/2022 11:23 AM CDT CNFL RBC Distrib Width 13.7 11.8 - 14.5 % 07/19/2022 11:23 AM CDT [facility] Platelet Count 122(L) 135 - 317 x10(9)/L 07/19/2022 11:23 AM CDT [facility] Leukocytes 4.4 3.4 - 9.6 x10(9)/L 07/19/2022 11:23 AM CDT [facility] Neutrophils 2.47 1.56 - 6.45 x10(9)/L 07/19/2022 11:23 AM CDT [facility] Lymphocytes 1.24 0.95 - 3.07 x10(9)/L 07/19/2022 11:23 AM CDT [facility] Monocytes 0.42 0.26 - 0.81 x10(9)/L 07/19/2022 11:23 AM CDT [facility] Eosinophils 0.22 0.03 - 0.48 x10(9)/L 07/19/2022 11:23 AM CDT [facility] Basophils <0.04 0.01 - 0.08 x10(9)/L 07/19/2022 11:23 AM CDT [facility] Blood (Blood, Venous) 07/19/2022 10:40 AM CDT 07/19/2022 10:45 AM CDT Bárbara Soto APRN, C.N.P. LAB BLOOD ADD-ON Performing Organization Address [facility] Co de Phone Number [facility] [address] [place] [address], [address] [address] * (ABNORMAL) Glucose, Fasting (07/19/2022 10:39 AM CDT) Glucose, P 109(H) 70 - 100 mg/dL 07/19/2022 11:14 AM CDT CNFL Last Intake 10 hr 07/19/2022 11:01 AM CDT [place] Comment: REVISED RESULTS ----PREVIOUSLY REPORTED ---- 14, Flagged as: Normal (Reported 07/19/2022 10:46) Blood (Blood, Venous) 07/19/2022 10:39 AM CDT 07/19/2022 10:45 AM CDT Ok Padilla M.D. LAB BLOOD NON ADD- ON Performing Organization Address [facility] Co de Phone Number [facility] [address] [place] [address], [address] [address] * (ABNORMAL) LD (Lactate Dehydrogenase) (07/19/2022 10:39 AM CDT) Lactate Dehydrogenase (LD), P 386(H) 122 - 222 U/L 07/19/2022 1:37 PM CDT [facility] Blood (Blood, Venous) 07/19/2022 10:39 AM CDT 07/19/2022 12:56 PM CDT Sole Read APRN C.N.P., D.N.P. LAB BLOOD NON ADD-ON Performing Organization Address [facility]/ZIP Co de Phone Number [facility] [address] [place] [address], [facility] in [place] [address] [facility] [place] [address] * Sedimentation Rate (07/19/2022 10:39 AM CDT) Sedimentation Rate, B 8 0 - 22 mm/1 h 07/19/2022 1:34 PM CDT [facility] Blood (Blood, Venous) 07/19/2022 10:39 AM CDT 07/19/2022 12:56 PM CDT Bárbara Soto APRN, C.N.P. LAB BLOOD ADD-ON [facility] [address] [place] [address], [facility] in [place] [address] [place] [phone] documented in this encounter Visit Diagnoses Diagnosis Arthritis Psoriatic (HCC) Hodgkin Lymphoma Unspecified Lymph Nodes Of Axilla And Upper Limb (HCC) Dysfunction Erectile documented in this encounter Additional Health Concerns Infection Onset Date Last Indicated Resolved Time Protective Environment 07/19/2022 07/19/2022 Assessment Noted Time PHQ-9 Depression Total Score: 0 01/01/20 16 12:53 PM CDT documented as of this encounter Care Teams Mechanical Integrity Specialist Relationship Specialty Start Date End Date Elsewhere, Pcp PCP - General Family Medicine 11/27/20 documented as of this encounter
--- OUTSIDE RECORDS SUMMARY | 2023-05-01 16:10 | XMS_ITS | Encounter Summary ---
Author Name Unknown Organization [facility] Address [address] [place] [address] Care Team Providers Care Cathode Ray Tube Assembler Name Role Phone Elsewhere, Pcp Primary Care Provider Unavailabl e Reason for Visit * Reason Onset Date Comments Pre-visit Intake 07/19/2022 Encounter Details Date Type Department Care Team (Latest Contact Info) Description 07/19/2022 9:00 AM CDT Clinical Communication Virtual Review in [place], [place] 200 [place], [place] [address] Pre-visit Intake Social History Tobacco Use Types [...] often do you attend chur ch or adventism services? Never 07/16/2022 Do you [...] at all 07/16/2022 [facility] - Occupational Stress Questionnaire [...] place to sleep or slept in a alf (including now)? No 07/16/2022 Nutrition Answer Date [...] Master's degree (e.g., MA, MS, Starla, MEd, SENIOR LINUX SYSTEMS ADMINISTRATOR, DEBRA) 09/16/2018 Sex and Gender Information Value Date Recorded Sex Assigned at Male 10/08/2017 8:25 AM CDT Gender Identity Male 10/08/2017 8:25 AM CDT Sexual Orientation Straight 10/08/2017 8: 25 AM CDT documented as of this encounter Plan of Treatment Upcoming Encounters Date Type Department Care Team (Latest Contact Info) Description 05/28/2023 9:30 AM ANIMATION DIRECTOR Clinical Communication Virtual Review in [place], [place] [address] [place] [address] 05/30/2023 11:00 AM ANIMATION DIRECTOR Appointment Department of Laboratory Medicine and Pathology, [facility], in [place], [place] [address] [place] [phone] Sole Read APRN, C.N.P., D.N.P. [address] [place] [phone] 05/30/2023 1:00 PM ANIMATION DIRECTOR Office Visit Division of Hematology in [place], [place] [address] [place] [phone] Sole Read APRN, Lanny.N.P., D.N.P. [address] [place] [phone] 06/17/2023 10:30 AM ANIMATION DIRECTOR Clinical Communication Virtual Review in [place], [place] 200 [place] [address] 06/18/2023 2:00 PM ANIMATION DIRECTOR Office Visit Division of Endocrinology in [place], [place] [address] [place] [phone] Get Ragland APRN, C.N.P., D.N.P. [address] [place] [phone] 06/25/2023 10:30 AM CDT Appointment Department of Laboratory Medicine in [address] [phone] Bárbara Soto APRN, C.N.P. [address] [place] [phone] documented as of this encounter Visit Diagnoses Not on filedocumented in this encounter Additional Health Concerns Infection Onset Date Last Indicated Resolved Time Protective Environment 07/19/2022 07/19/2022 Assessment Noted Time PHQ-9 Depression Total Score: 0 01/01/20 16 12:53 PM CDT documented as of this encounter Care Teams Cathode Ray Tube Assembler Relationship Specialty Start Date End Date Elsewhere, Pcp PCP - General Family Medicine 11/27/20 documented as of this encounter
--- OUTSIDE RECORDS SUMMARY | 2023-05-01 16:10 | XMS_ITS | Encounter Summary ---
Author Name Unknown Organization [facility] Address 200 [place] [address] Care Team Providers Care Solar Power Installer Name Role Phone Elsewhere, Pcp Primary Care Provider Unavailabl e Reason for Visit * Reason Comments Med Refill Encounter Details Date Type Department Care Team (Late st Contact Info) Description 05/22/2022 Refill Division of Rheumatology in [place], [place] [address] [place] [address] Bárbara Soto, JASON, C.N.P. [address] [place] [phone] Med Refill Social History Tobacco Use Types [...] you attend chur or restorationist services? Never 12/04/2021 Do you belong to any clubs o r organizations such as mormonism groups, unions, fraternal or athletic groups, or [...] care, and heating? Not very hard 12/04/2021 [facility] Occup[facility] ional Health - Occupational [...] slept in a mcc (including now)? No 12/04/2021 Nutrition Answer Date [...] Master's degree (e.g., MA, MS, Starla, MEd, THREADING MACHINE TENDER, DEBRA) 09/16/2018 Sex and Gender Information Value Date Recorded Sex Assigned at Male 10/08/2017 8:25 AM CDT Gender Identity Male 10/08/2017 8:25 AM CDT Sexual Orientation Straight 10/08/2017 8: 25 AM CDT documented as of this encounter Miscellaneous Notes * Telephone Encounter - Sanjuana Wright R.N. - 05/24/2022 10:01 AM CRYSTAL SLICER Prescription renewal request for Celebrex received from pharmacy. HISTORY OF PRESENT ILLNESS Last Rheum visit: 10/24/2021 with Curly Ordaz PA-C Future office visit: not ordered Last monitoring labs/eye exam: Not required. Prescription request matches current plan of care. Prescription request matches a current prescription in the Medication List. Exclusion criteria: NSAID ASSESSMENT/PLAN Prescription request pended for provider review due to NSAID. Provider to review need for renal monitoring. TAL SLICER documented in this encounter Plan of Treatment Upcoming Encounters Date Type Department Care Team (Latest Contact Info) Description 05/28/2023 9:30 AM CRYSTAL SLICER Clinical Communication Virtual Review in [address] [address] 05/30/2023 11:00 AM CRYSTAL SLICER Appointment Department of Laboratory Medicine and Pathology, [facility] in [address] [phone] Sole Read APRN, C.N.P., D.N.P. [address] [place] [phone] 05/30/2023 1:00 PM CRYSTAL SLICER Office Visit Division of Hematology in [address] [phone] Sole Read APRN, C.N.P., D.N.P. [address] [place] [phone] 06/17/2023 10:30 AM CRYSTAL SLICER Clinical Communication Virtual Review in [address] [address] 06/18/2023 2:00 PM CRYSTAL SLICER Office Visit Division of Endocrinology in [address] [phone] Get Ragland APRN, C.N.P., D.N.P. [address] [place] [phone] 06/25/2023 10:30 AM CDT Appointment Department of Laboratory Medicine in [address] [place] [phone] Bárbara Soto, JASON, C.N.P. [address] [place] [phone] documented as of this encounter Visit Diagnoses Diagnosis Arthritis Psoriatic (HCC) documented in this encounter Additional Health Concerns Assessment Noted Time PHQ-9 Depression Total Score: 0 01/01/20 16 12:53 PM CDT documented as of this encounter Care Teams Solar Power Installer Relationship Specialty Start Date End Date Elsewhere, Pcp PCP - General Family Medicine 11/27/20 documented as of this encounter
--- OUTSIDE RECORDS SUMMARY | 2023-05-01 16:10 | XMS_ITS | Encounter Summary ---
Author Name Unknown Organization [facility] Address 200 [place] [address] Care Team Providers Care Commercial Real Estate Appraiser Name Role Phone Elsewhere, Pcp Primary Care Provider Unavailabl e Reason for Visit * Episode Based Medications (Routine) - Closed Specialty Diagnoses / Procedures Referred By Nuvia t Referred To Contact Diagnoses Arthritis Psoriatic (HCC) Bárbara Soto APRN, C.N.P. [address] [place] [phone] [facility] [address] [place] [phone] Referral ID Status Reason Start Date Expiration Date Visits Re quested Visits Authorized [id number] Closed 08/27/2021 08/27/2022 99 99 Encounter Details Date Type Department Care Team (Late st Contact Info) Description 07/03/2022 9:45 AM CDT Infusion Department of Infusion Therapy in [address] [phone] Bárbara Soto APRN, C.N.P. [address] [place] [phone] Arthritis Psoriatic (HCC) (Primary Dx) Social History [...] How often do you attend chur or religion services? Never 12/04/2021 Do you belong to [...] care, and heating? Not very hard 12/04/2021 [facility] Occup[facility] ional Health - [...] slept in a prison (including now)? No 12/04/2021 Nutrition Answer Date [...] Master's degree (e.g., MA, MS, Starla, MEd, REHABILITATOR, DEBRA) 09/16/2018 Sex and Gender Information Value Date Recorded Sex Assigned at Male 10/08/2017 8:25 AM CDT Gender Identity Male 10/08/2017 8:25 AM CDT Sexual Orientation Straight 10/08/2017 8: 25 AM CDT documented as of this encounter Last Filed Vital Signs Vital Sign Reading Time Taken Comments Blood Pressure 108/74 07/03/2022 10:20 AM CDT Pulse 71 07/03/2022 10:20 AM CDT Temperature 36.2 ??C (97.2 ??F) 07/03/2022 10:20 AM C DT Respiratory Rate 18 07/03/2022 10:20 AM CDT Oxygen Saturation 97% 07/03/2022 10:20 AM CDT Inhaled Oxygen Concentration - - Weight 113 kg (249 lb 1.9 oz) 07/03/2022 9:28 AM CDT Height - - Body Mass Index 35.51 03/21/2022 12:42 PM ENGINE INSPECTOR documented in this encounter Plan of Treatment Upcoming Encounters Date Type Department Care Team (Latest Contact Info) Description 05/28/2023 9:30 AM ENGINE INSPECTOR Clinical Communication Virtual Review in [address] [address] 05/30/2023 11:00 AM ENGINE INSPECTOR Appointment Department of Laboratory Medicine and Pathology, [facility] [place] [facility], in [address] [phone] Sole Read APRN, C.N.P., D.N.P. [address] [place] [phone] 05/30/2023 1:00 PM ENGINE INSPECTOR Office Visit Division of Hematology in [address] [phone] Sole Read APRN, C.N.P., D.N.P. [address] [place] [phone] 06/17/2023 10:30 AM ENGINE INSPECTOR Clinical Communication Virtual Review in [place], [place] [address] [place] [address] 06/18/2023 2:00 PM ENGINE INSPECTOR Office Visit Division of Endocrinology in [place], [place] [address] [place] [phone] Get Ragland APRN, C.N.P., D.N.P. [address] [place] [phone] 06/25/2023 10:30 AM CDT Appointment Department of Laboratory Medicine in [address] [phone] Bárbara Soto APRN, C.N.P. [address] [place] [phone] documented as of this encounter Visit Diagnoses Diagnosis Arthritis Psoriatic (HCC)- Primary documented in this encounter Administered Medications Inactive Administered Medications - up to 3 most recent administrations Medication Order MAR Action Action Date Dose Rate Site golimumab 225 mg in NaCl 0.9% IVPB (SIMPONI ARIA) 225 mg (rounded from 226 mg = 2 mg/kg ? 113 kg), intravenous, at 200 mL/hr, Administer over 30 Minutes, Once, On Fri07/03/22 at 0930, For 1 dose, Do NOT shake. Use in-line filter. Do NOT refrigerate. New Bag 07/03/2022 9:47 AM CDT 225 mg 200 mL/hr NaCl 0.9 % bolus 50 mL 50 mL, intravenous, at 50 mL/hr, Administer over 1 Hours, Once, On Fri07/03/22 at 0945, For 1 dose New Bag 07/03/2022 10:17 AM CDT 50 mL 50 mL/hr sodium chloride 0.9 % injection 10 mL 10 mL, intravenous, As needed, line care, Starting on Fri07/03/22 at 0930 Given 07/03/2022 9:47 AM CDT 10 mL documented in this encounter Additional Health Concerns Assessment Noted Time PHQ-9 Depression Total Score: 0 01/01/20 16 12:53 PM CDT documented as of this encounter Care Teams Commercial Real Estate Appraiser Relationship Specialty Start Date End Date Elsewhere, Pcp PCP - General Family Medicine 11/27/20 documented as of this encounter
--- OUTSIDE RECORDS SUMMARY | 2023-05-01 16:10 | XMS_ITS | Encounter Summary ---
Author Name Unknown Organization [facility] Address [address] [place] [address] Care Team Providers Care Twister Tender Paper Name Role Phone Elsewhere, Pcp Primary Care Provider Unavailabl e Reason for Visit * Reason Onset Date Comments Lab Monitoring 06/20/2022 MTX Encounter Details Date Type Department Care Team (Latest Contact Info) Description 06/20/2022 Clinical Communication Division of Rheumatology in [place], [place] [address] [place] [phone] Lara Delgado R.N. [address] [place] [address] Lab Monitoring (MTX) Social History Tobacco Use Types Packs/Day Years [...] How often do you attend chur or worship services? Never 12/04/2021 Do you [...] care, and heating? Not very hard 12/04/2021 [facility] [...] place to sleep or slept in a detention (including now)? No 12/04/2021 Nutrition Answer Date [...] Master's degree (e.g., MA, MS, Starla, MEd, WIND TURBINE ERECTOR, DEBRA) 09/16/2018 Sex and Gender Information Value Date Recorded Sex Assigned at Male 10/08/2017 8:25 AM CDT Gender Identity Male 10/08/2017 8:25 AM CDT Sexual Orientation Straight 10/08/2017 8: 25 AM CDT documented as of this encounter Miscellaneous Notes * Telephone Encounter - Lara Delgado R.N. - 06/20/2022 8:46 AM CST Documentation note only, patient not contacted ASSESSMENT Rheumatology monitoring labs completed on 06/19/22 for methotrexate monitoring were reviewed per provider order. Labs reviewed: absolute neutrophil count, AST, creatinine, hemoglobin, leukocytes, platelets Labs viewable in Labs tab. PLAN Patient to continue with current plan of care. Patient next due for monitoring labs in three months; these future lab orders were placed. ND GRINDER documented in this encounter Plan of Treatment Upcoming Encounters Date Type Department Care Team (Latest Contact Info) Description 05/28/2023 9:30 AM ALMOND GRINDER Clinical Communication Virtual Review in [address] [address] 05/30/2023 11:00 AM ALMOND GRINDER Appointment Department of Laboratory Medicine and Pathology, [facility] in [address] [phone] Sole Read APRN, C.N.P., D.N.P. [address] [place] [phone] 05/30/2023 1:00 PM ALMOND GRINDER Office Visit Division of Hematology in [address] [phone] Sole Read APRN, C.N.P., D.N.P. [address] [place] [phone] 06/17/2023 10:30 AM ALMOND GRINDER Clinical Communication Virtual Review in [address] [address] 06/18/2023 2:00 PM ALMOND GRINDER Office Visit Division of Endocrinology in [address] [phone] Get Ragland APRN, C.N.P., D.N.P. [address] [place] [phone] 06/25/2023 10:30 AM CDT Appointment Department of Laboratory Medicine in [address] [phone] BrittanyBárbara barnes APRN, C.N.P. [address] [place] [phone] documented as of this encounter Results * [...] CDT Bindu Sawant APRNN.P. [place] [address], [address] [address] * AST (Aspartate Aminotransferase) (09/18/2022 12:03 PM CDT) Aspartate Aminotransferase (AST), P 28 8 - 48 U/L 09/18/2022 12:31 PM CDT [facility] Blood (Blood, Venous) 09/18/2022 12:03 PM CDT 09/18/2022 12:04 PM CDT Bárbara Soto APRN, C.N.P. LAB BLOOD ADD-ON [address] [address], [facility] in [address] [address] * (ABNORMAL) CBC with Differential, Blood (09/18/2022 12:03 PM CDT) [facility] Hemoglobin 14.5 13.2 - 16.6 g/dL 09/18/2022 [...] CDT 09/18/2022 12:04 PM CDT Bárbara Soto APRN, C.N.P. LAB BLOOD ADD-ON Performing Organization Address City/State/[facility] Co de Phone Number [facility] [address] [place] [phone], [facility] in [address] [address] documented in this encounter Visit Diagnoses Diagnosis Medication Therapy [facility] [place] Not Anticoagulant- Primary documented in this encounter Additional Health Concerns Assessment Noted Time PHQ-9 Depression Total Score: 0 01/01/20 16 12:53 PM CDT documented as of this encounter Care Teams Twister Tender Paper Relationship Specialty Start Date End Date Elsewhere, Pcp PCP - General Family Medicine 11/27/20 documented as of this encounter
--- OUTSIDE RECORDS SUMMARY | 2023-05-01 16:11 | XMS_ITS | Encounter Summary ---
Author Name Unknown Organization [facility] Address [address] [place] [address] Care Team Providers Care School Services Officer Name Role Phone Elsewhere, Pcp Primary Care Provider Unavailabl e Encounter Details Date Type Department Care Team (Latest Contact Info) Description 05/01/2022 Clinical Communication Department of Cardiovascular Medicine in [place], [place] [address] [place] [phone] Ok Padilla M.D. [address] [place] [address] Social History Tobacco Use Types Packs/Day Years [...] often do you attend chur ch or latter-day services? Never 12/04/2021 Do you belong to [...] care, and heating? Not very hard 12/04/2021 [facility] - Occupational Stress Questionnaire Answer Date [...] slept in a half-way (including now)? No 12/04/2021 Nutrition Answer Date [...] Master's degree (e.g., MA, MS, Starla, MEd, NUCLEAR EQUIPMENT RESEARCH ENGINEER, DEBRA) 09/16/2018 Sex and Gender Information Value Date Recorded Sex Assigned at Male 10/08/2017 8:25 AM CDT Gender Identity Male 10/08/2017 8:25 AM CDT Sexual Orientation Straight 10/08/2017 8: 25 AM CDT documented as of this encounter Miscellaneous Notes * Telephone Encounter - Fatoumata Blake R - 05/01/2022 7:13 AM CST This patient is being referred back to you from Hematology. Patient had an Echo & ECG in January 2022. You had seen him in 2019. He is not a HCM patient, do you need any additional testing ? Fatoumata Patient Appointment Services Specialist Division of Cardiovascular Diseases [address] [place] [address] [email or web address] P RST CVD HOCM/CATALINA SCHEDULING WHINA KURA KAUPAPA MAORI documented in this encounter Plan of Treatment Upcoming Encounters Date Type Department Care Team (Latest Contact Info) Description 05/28/2023 9:30 AM KAIAWHINA KURA KAUPAPA MAORI Clinical Communication Virtual Review in [place], [place] [address] [place] [address] 05/30/2023 11:00 AM KAIAWHINA KURA KAUPAPA MAORI Appointment Department of Laboratory Medicine and Pathology, [facility] in [place], [place] [address] [place] [phone] Sole Read APRN, C.N.P., D.N.P. [address] [place] [phone] 05/30/2023 1:00 PM KAIAWHINA KURA KAUPAPA MAORI Office Visit Division of Hematology in [place], [place] [address] [place] [phone] Sole Read APRN, C.N.P., D.N.P. [address] [place] [phone] 06/17/2023 10:30 AM KAIAWHINA KURA KAUPAPA MAORI Clinical Communication Virtual Review in [address] [address] 06/18/2023 2:00 PM KAIAWHINA KURA KAUPAPA MAORI Office Visit Division of Endocrinology in [place], [place] [address] [place] [phone] Get Ragland APRN, C.N.P., D.N.P. [address] [place] [phone] 06/25/2023 10:30 AM CDT Appointment Department of Laboratory Medicine in [address] [phone] Bárbara Soto APRN, C.N.P. [address] [place] [address], [place] [phone] documented as of this encounter Visit Diagnoses Not on filedocumented in this encounter Additional Health Concerns Assessment Noted Time PHQ-9 Depression Total Score: 0 01/01/20 16 12:53 PM CDT documented as of this encounter Care Teams School Services Officer Relationship Specialty Start Date End Date Elsewhere, Pcp PCP - General Family Medicine 11/27/20 documented as of this encounter
--- OUTSIDE RECORDS SUMMARY | 2023-05-01 16:11 | XMS_ITS | Encounter Summary ---
Author Name Unknown Organization [facility] Address [address] [place] [address] Care Team Providers Care Salesperson Used Cars Name Role Phone Elsewhere, Pcp Primary Care Provider Unavailabl e Encounter Details Date Type Department Care Team (Latest Contact Info) Description 05/07/2022 3:00 PM PUBLIC HEALTH WORKER Clinical Communication Virtual Review in [place], [place] [address] [place] [address] Canceled (Clinic: Request) Social History Tobacco Use Types Packs/Day Years [...] attend chur ch or muslim services? Never 12/04/2021 Do you belong to any clubs o r organizations such as anglican groups, unions, fraternal or athletic groups, or [...] care, and heating? Not very hard 12/04/2021 [facility] [place] [facility] of Occupat ional Health - Occupational Stress [...] place to sleep or slept in a long-term (including now)? No 12/04/2021 Nutrition Answer Date [...] Master's degree (e.g., MA, MS, Starla, MEd, PCT, DEBRA) 09/16/2018 Sex and Gender Information Value Date Recorded Sex Assigned at Male 10/08/2017 8:25 AM CDT Gender Identity Male 10/08/2017 8:25 AM CDT Sexual Orientation Straight 10/08/2017 8: 25 AM CDT documented as of this encounter Plan of Treatment Upcoming Encounters Date Type Department Care Team (Latest Contact Info) Description 05/28/2023 9:30 AM PUBLIC HEALTH WORKER Clinical Communication Virtual Review in [place], [place] [address] [place] [address] 05/30/2023 11:00 AM PUBLIC HEALTH WORKER Appointment Department of Laboratory Medicine and Pathology, [facility], in [place], [place] [address] [place] [phone] Sole Read APRN, C.N.P., D.N.P. [address] [place] [phone] 05/30/2023 1:00 PM PUBLIC HEALTH WORKER Office Visit Division of Hematology in [place], [place] [address] [place] [phone] Sole Read APRN, C.N.P., D.N.P. [address] [place] [phone] 06/17/2023 10:30 AM PUBLIC HEALTH WORKER Clinical Communication Virtual Review in [place], [place] [address] [place] [address] 06/18/2023 2:00 PM PUBLIC HEALTH WORKER Office Visit Division of Endocrinology in [place], [place] [address] [place] [phone] Get Ragland APRN, C.N.P., D.N.P. [address] [place] [phone] 06/25/2023 10:30 AM CDT Appointment Department of Laboratory Medicine in [address] [phone] Bárbara Soto APRN, C.N.P. [address] [place] [phone] documented as of this encounter Visit Diagnoses Not on filedocumented in this encounter Additional Health Concerns Assessment Noted Time PHQ-9 Depression Total Score: 0 01/01/20 16 12:53 PM CDT documented as of this encounter Care Teams Salesperson Used Cars Relationship Specialty Start Date End Date Elsewhere, Pcp PCP - General Family Medicine 11/27/20 documented as of this encounter
== END 2023-04-25 11:11 | disposition home or self-care (01) ==
PROVIDERS: PCP Internal Medicine; Referring Provider Internal Medicine; Visit Provider Internal Medicine
DX: Z79.01 Long term (current) use of anticoagulants (principal)
CPT/HCPCS: 85610

== ENCOUNTER 2023-05-14 11:31 | Outpatient (CLI) | payer MEDICARE, BC, SELFPAY | END 2023-05-14 11:32 | disposition home or self-care (01) | LOC: NFLDREF 05-15 09:25 | PROVIDERS: PCP Internal Medicine; Referring Provider Internal Medicine; Visit Provider Internal Medicine | DX: Z95.2 Presence of prosthetic heart valve (principal); Z51.81 Encounter for therapeutic drug level monitoring; Z79.01 Long term (current) use of anticoagulants | CPT/HCPCS: 85610 ==

== ENCOUNTER 2023-06-19 09:41 | Outpatient (CLI) | payer MEDICARE, BC, SELFPAY | END 2023-06-19 09:42 | disposition home or self-care (01) | LOC: NFLDREF 07-02 09:29 | PROVIDERS: PCP Internal Medicine; Referring Provider Internal Medicine; Visit Provider Internal Medicine | DX: Z51.81 Encounter for therapeutic drug level monitoring (principal); Z79.01 Long term (current) use of anticoagulants | CPT/HCPCS: 85610 ==

== ENCOUNTER 2023-07-25 11:40 | Outpatient (CLI) | payer MEDICARE, BC, SELFPAY | END 2023-07-25 11:41 | disposition home or self-care (01) | LOC: NFLDREF 08-01 07:42 | PROVIDERS: PCP Internal Medicine; Referring Provider Internal Medicine; Visit Provider Internal Medicine | DX: Z51.81 Encounter for therapeutic drug level monitoring (principal); Z79.01 Long term (current) use of anticoagulants | CPT/HCPCS: 85610 ==

== ENCOUNTER 2023-08-12 07:45 | Emergency (ER) | payer MEDICARE, BC, SELFPAY ==
[2023-08-12 07:52] VITALS: BP 123/85; PULSE 83; RESP 18; TEMP 36.7; O2SAT 97; BMI 34.0
--- NOTE | 2023-08-12 08:25 | CT_ITS ---
Patient: RIC SILVA Facility:?[facility] Patient ID:?[id number] Site Patient ID:?[id number]. Site :?[id number] Study:?CT-Head WITHOUT-08/12/2023 9:13:53 AM Ordering Physician:?DR. ORTEGA Final Report: INDICATION: Scalp indentations and bumps in area of craniotomy TECHNIQUE: CT head without contrast. COMPARISON: Head CT 03/05/2023 FINDINGS: The patient is status post left frontoparietal craniotomy. No significant soft tissue lesion identified at the point of craniotomy with some resorption noted at the posterior aspect of the craniotomy flap near the vertex (series 3, image 55). No intracranial bleed. Andres-white differentiation is distinct. Mild mucosal thickening maxillary sinuses. Mild bilateral temporomandibular joint osteoarthritis. IMPRESSION: 1. Status post left frontoparietal craniotomy without discrete soft tissue lesion. Some bony resorption noted at the posterior/superior aspect of the craniotomy flap. 2. No intracranial bleed or mass effect. Please note that all CT scans at this facility use dose modulation, iterative reconstruction, and/or weight-based dosing when appropriate to reduce radiation dose to as low as reasonably achievable. Dictated by Dany Harper MD @ 08/12/2023 9:26:16 AM Signed by:?Dany Harper MD @08/12/2023 9:26:16 AM (Electronic Signature)
--- OUTSIDE RECORDS SUMMARY | 2023-08-12 08:31 | XMS_ITS | Clinical Summary ---
Author Name Unknown Organization [facility] [place] [address] Phone Care Team Providers Care Human Geography Instructor Name Role Phone Gale Garcia MD Primary Care Provider [phone] Source Comments [employer] is fully rolled out [facility] [place] Last update 09/16/08.[facility] Allergies No known active allergies Medications * Be aware that medications may not be up to date as of this document. Always verify current medications with patient. Medication Sig Dispensed Refills Start Date End Date Status atorvastatin (LIPITOR) 40 mg oral TABS Take 1 tablet (40 mg) by mouth daily. 02/06/2023 Active desvenlafaxine ER (PRISTIQ) 50 mg oral tablet 24 HR Take 1 tablet (50 mg) by mouth daily. 03/04/2023 Active folic acid (FOLIC ACID) 1 mg oral tablet Take 2 tablets (2 mg) by mouth daily. Active furosemide (LASIX) 20 mg oral TABS Take 1 tablet (20 mg) by mouth daily. 12/23/2022 Active mirtazapine (REMERON) 7.5 mg oral TABS Take 1 tablet (7.5 mg) by mouth at bedtime. 01/16/2023 Active methoTREXate 25 mg/mL Intralesiona solution intralesional 0.7 mL (17.5 mg) by Intralesional route every week. Active NaCl 0.9% solution 81.6 mL with golimumab 50 MG/4ML solution 225 mg IVPB Inject 225 mg intravenously. Active doxycycline 100 mg oral tablet Take 1 tablet (100 mg) by mouth twice daily. 09/27/2022 Active enoxaparin (LOVENOX) 100 mg/mL Injection SOSY 2 (two) times a day. 03/17/2023 Acti ve golimumab (SIMPONI) 50 mg/0.5 mL subcutaneous auto injector Inject 0.5 mL (50 mg) subcutaneously every month. 03/31/2023 Active labetalol (TRANDATE) 100 mg oral TABS Take 1 tablet (100 mg) by mouth. 03/14/2023 Active labetalol (TRANDATE) 200 mg oral tablet Take 2 tablets (400 mg) by mouth 3 times daily. Active loperamide (IMODIUM A-D) 2 mg oral tablet Take 1 mg by mouth. Activ e predniSONE 5 mg oral tablet SMARTSIG:By Mouth 09/03/2022 Active triamcinolone acetonide (TRIDERM) 0.5% externally cream SMARTSIG:Topical Twice Daily 11/07/2022 Active venlafaxine (EFFEXOR XR) 150 mg oral capsule 24 H Take 1 capsule (150 mg) by mouth daily. 02/25/2023 Active venlafaxine (EFFEXOR XR) 75 mg oral capsule 24 H Take 1 capsule (75 mg) by mouth daily. 02/25/2023 Active warfarin (COUMADIN) 5 mg oral tablet SMARTSIG:By Mouth 03/28/2023 A ctive methoTREXate (RHEUMATREX) 2.5 mg oral tablet SMARTSI Tablet(s) By Mouth Once a Week 09/18/2022 Active methotrexate 50 mg/2 mL Injection SMARTSI.7 Milliliter(s) SUB-Q Once a Week 03/27/2023 Active mirtazapine (REMERON) 7.5 mg oral TABS Take 1 tablet (7.5 mg) by mouth. 01/16/2023 Active Active Problems Problem Noted Date Diagnosed Date Adenomatous colon polyp 04/02/2023 Anticoagulation goal of INR 2.5 to 3.5 Generalized anxiety disorder 04/02/2023 Depression 04/02/2023 Aortic root aneurysm (CMS) 04/02/2023 Left carpal tunnel syndrome 04/02/2023 Pain in left finger(s) 04/02/2023 Psoriasis 04/02/2023 Sleep apnea 04/02/2023 Acute subdural hematoma ([facility]) 04/02/2023 Obesity, unspecified 03/19/2023 Subdural hematoma ([facility]) 03/05/2023 Male erectile dysfunction, unspecified 3 Unspecified osteoarthritis, unspecified site Drug induced constipation 11/07/2020 Pain in joint 11/07/2020 Other specified complication s of surgical and medical care, not elsewhere classified, subsequent encounter 06/22/2020 Hodgkin lymphoma, unspecifie d, lymph nodes of axilla and upper limb ([facility]) 05/10/2020 Other specified joint disorders, right ankle and foot 11/23/2019 Primary osteoarthritis, right ankle and foot 09/2019 Overview: Added automatically from request for surgery [id number] Personal history of other di seases of the circulatory system 03/23/2018 Pain in left wrist 10/08/2017 Overview: Added automatically from request for surgery [id number] Peyronie's disease 12/04/2016 Dilated aortic root ([facility]) 03/04/2016 Presence of prosthetic heart valve 04/28/2015 Acute delirium 03/06/2015 Abdominal aortic aneurysm dissection ([facility]) 1 05/02/2014 Arthropathic psoriasis, unspecified ([facility]) Chronic pain syndrome 10/21/2013 Overview: Pain Dx: psoriatic arthritis Preferred Pharmacy: [facility] [place] Comments: Opioid contract renewed 10/21/13 mgr. Anxiety state 01/28/2013 Recurrent major depression in partial remission ([facility]) 01/28/2013 Osteoarthritis of foot 08/31/2012 S/P shoulder surgery 07/01/2012 Shoulder pain 08/06/2011 Essential (primary) hypertension 10/01/2007 Overview: Did not tolerate atenolol Psoriasiform dermatitis 01/20/2007 Hyperlipidemia 09/29/2006 Overview: Low HDL, moderate LDL Arthropathy 09/13/2005 Overview: Started methotrexate 05/21-2009, Humira 01/20-present, LEF (12/2011-05/2012: no benefit) IMO Update Routine general medical exam ination at a health care facility 07/14/2004 Overview: Medical review 04/21/2013 Colonoscopy 2007 polyps. 03/25 normal. Next 2016 senior care (current) use of anticoagulants 2003 Overview: Overview: Updated per 01/12/17 IMO import Updated per 01/12/17 IMO import Other specified anxiety disorders 04/12/2002 Overview: Previous treatment with wellbutrin, prozac, effexor, celexa Obstructive sleep apnea (adult) (pediatric) 11/0 09/2001 Overview: Sleep study 09/29/97. Tolerated nasal CPAP poorly. He had a previous UPP, but not done for SARITA or snoring. 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 Resolved Problems Problem Noted Date Diagnosed Date Resolved Date Special screening for malign ant neoplasms, colon 01/20/2012 05/14/2023 Encounters Date Type Department Care Team Description 07/21/2023 8:40 AM CDT [facility] [address] [place] [id number] Diane Murray MD Subdural hematoma (CMS) (Primary Dx) Discharge Disposition: Discharged to home or self care (routine discharge) 07/10/2023 10:16 AM CDT - 07/10/2023 11:59 PM CDT Hospital Encounter [facility] [address] [place] [address] Diane Murray MD 1, Eeg - Outpatient Discharge Disposition: Discharged to home or self care (routine discharge) 07/10/2023 Travel 06/11/2023 10:00 AM PARKS WORKER Office Visit [facility] [address] [place] [id number] Diane Murray MD Subdural hematoma (CMS) (Primary Dx) Discharge Disposition: Discharged to home or self care (routine discharge) 06/11/2023 Travel 05/30/2023 Refill [facility] [address] [place] [address] Nazanin Aguirre, PAMelidaC Other from Last 3 Months Immunizations Name Administration Dates Next Due Diphtheria and Tetanus Toxoi d - Adult (Grifols Td) 07/12/2003,11/06/1992 Influenza (EGG FREE) 2 Years through Adult - Prefilled 01/27/2017 Influenza Vaccine - (3 + Yea rs); Preservative Free Trivalent 01/12/2016,01/19/2014,01/29/2013,2005 Influenza Vaccine - (3 Years +) Trivalent 01/17/2021,01/09/2012,01/24/2009,2007 Influenza Vaccine 6 Months t hrough Adult - Prefilled 02/25/2020,03/08/2019,01/19/2018,2014,05/10/2009 Influenza Vaccine, High Dose , Quadrivalent 02/20/2023,03/05/2022 Influenza Vaccine, Unspecified 01/25/2015 Novel [id number], all formulations 05/10/2009 Pneumococcal Conjugate, 13 - Valent Vaccine(Prevnar 13) 04/22/2013 Pneumococcal Conjugate, 20-V alent Vaccine (Prevnar 20) 12/03/2022 Respiratory Syncytial Virus Vaccine, Recombinant Adjuvanted (Arexvy) 02/20/2023 Tetanus Toxoid, Reduced Diph theroid Toxoid Acellular Pertussis 12/23/2022,04/17/2012 Zoster Recombinant Adjuvant (Shingrix) 50 Years And Greater 06/16/2018,04/09/2018 Social History Tobacco Use Types Packs/Day Years Used Date Smoking Tobacco: Never Assessed PHQ-2 Answer Date Recorded PHQ-2 Subtotal 3 03/12/2023 Sex and Gender Information Value Date Recorded Sex Assigned at Not on file Gender Identity Not on file Sexual Orientation Not on file Last Filed Vital Signs Vital Sign Reading Time Taken Comments Blood Pressure 113/70 06/11/2023 10:10 AM PARKS WORKER Pulse 84 06/11/2023 10:10 AM PARKS WORKER Temperature 36 ??C (96.8 ??F) 03/19/2023 11:08 AM PARKS WORKER Respiratory Rate 18 03/19/2023 11:08 AM PARKS WORKER Oxygen Saturation 98% 03/14/2023 10:53 AM PARKS WORKER Inhaled Oxygen Concentration - - Weight 108.9 kg (240 lb) 06/11/2023 10:10 AM PARKS WORKER Height 175.3 cm (5' 9) 03/05/2023 10:00 PM PARKS WORKER Body Mass Index 35.44 03/05/2023 10:00 PM PARKS WORKER Plan of Treatment Health Maintenance Due Date Last Done Comments CT Colonography 1957 Colonoscopy 1957 Colorectal Cancer Screening 1957 Dental Oral Exam 1957 Dental Prophylaxis 1957 Dental X-Ray: Bitewings 1957 FIT/Cologuard 1957 Hepatitis C Screening 1957 Sigmoidoscopy 1957 iFOB/FIT 1957 Periodontal Maintenance 1971 Medicare Annual Wellness 1975 HEALTH MAINTENANCE PROTOCOL 01/22/1976 PREVENTATIVE VISIT 04/21/2014 04/21/2013, 0 04/17/2012, 04/17/2011, Additional history exists Abdominal Aortic Aneurysm (AAA) Screening 2022 Depression Management 09/10/2023 03/12/2023 Lipid Screening 03/13/2028 03/13/2023, 07/19/2022 TD/TDAP ADULTS 12/23/2032 12/23/2022, 07/2012, 07/12/2003, Additional history exists PNEUMOCOCCAL IMMUNIZATION > 65 YRS Completed 12/03/2022 COVID-19 Vaccine Completed 02/20/2023, , 08/07/2021, Additional history exists INFLUENZA VACCINE Completed 02/20/2023, , 01/17/2021, Additional history exists RSV Immunoglobulin Aged Out 02/20/2023 No longer eligible based on patient's age to complete this topic HIB Aged Out No longer eligi ble based on patient's age to complete this topic HPV Aged Out No longer eligi ble based on patient's age to complete this topic Hepatitis B Vaccines Aged Out No long er eligible based on patient's age to complete this topic Medical Devices Implanted Type Area Fingernail Technician Device Identifier Shelf Expiration Date Model / Serial / Lot [place] Hole Cover, 17mm [id number] Implanted:Qty: 1 on 03/08/2023 by Jose Mims MD at [facility] Plate Left: Skull SYNTHES [employer] 421.527 / / Square Box Plate, 4 Hole [id number] Implanted:Qty: 2 on 03/08/2023 by Jose Mims MD at [facility] Plate Left: Skull SYNTHES [employer] [id number] / / 4mm [id number] Implanted:Qty: 14 on 03/08/2023 by Jose Mims MD at [facility] Screw/[place] Left: Brain SYNTHES [employer] [id number] / / Description:13 screws implan anitha, one screw wasted Procedures Procedure Name Priority Date/Time Associated Diagnosis Comments EEG Routine 07/10/2023 10:16 AM CDT Subdural hematoma (CMS) PANEL LIPID Routine 03/13/2023 6:42 AM PARKS WORKER from Last 3 Months or Most Recently Relevant to Health Maintenance Results * PANEL LIPID (03/13/2023 6:42 AM PARKS WORKER) Cholesterol 125 <=200 mg/dL [facility] Comment: Interpretive Data <200 Desirable 200-239 Borderline high >=240 High HDL 45 >=40 mg/dL [facility] Comment: Interpretive Data Normal > 40 Male > 50 Female Triglyceride 79 <=150 mg/dL [facility] Comment: Interpretive Data <150 Normal 150-199 Borderline high 200-499 High >=500 Very high Calc LDL 64 <=100 mg/dL [facility] Comment: Interpretive Data <100 Desirable 100-129 Above desirable 130-159 Borderline high 160-189 High >=190 Very high Non-HDL Cholesterol Calculated 80 <=130 mg/dL [facility] Comment: Interpretive Data <130 Desirable 130-159 Above desirable 160-189 Borderline high 190-219 High >=220 Very high Blood 03/13/2023 6:42 AM PARKS WORKER 03/13/2023 6:46 AM PARKS WORKER Narrative [facility] - 03/13/2023 7:58 AM PARKS WORKER Fasting: No Jose Mims MD LABORATORY [facility] [address] [address] from Last 3 Months or Most Recently Relevant to Health Maintenance Advance Directives For more information, please contact: [phone] * Full Code (Latest Code Status on File) Date Activated Date Inactivated Comments 03/05/2023 11:06 PM 03/14/2023 8:12 PM Question Answer Comments Does the Patient have prefer ences regarding life sustaining measures (these options only apply when the patient has a pulse): No Discussed Code Status With Whom? Not discussed Care Teams Human Geography Instructor Relationship Specialty Start Date End Date Gale Garcia MD [address] [place] [address] PCP - General Internal Medicine 03/10/23
--- OUTSIDE RECORDS SUMMARY | 2023-08-12 08:32 | XMS_ITS | Encounter Summary ---
Author Name Unknown Organization [facility] Address [address] [place] [id number] Phone Care Team Providers Care Quarter Backer Name Role Phone Gale Garcia MD Primary Care Provider Encounter Details Date Type Department Care Team (Late st Contact Info) Description 04/24/2023 Documentation Only Unspecified Department [place] Unknown, Provider Social History Tobacco Use Types Packs/Day Years Used Date Smoking Tobacco: Never Assessed PHQ-2 Answer Date Recorded PHQ-2 Subtotal 3 03/12/2023 Sex and Gender Information Value Date Recorded Sex Assigned at Not on file Gender Identity Not on file Sexual Orientation Not on file COVID-19 Exposure Response Date Recorded In the last 10 days, have yo u been in contact with someone who was confirmed or suspected to have Coronavirus/COVID-19? No / Unsure 04/02/2023 7:34 AM CONTRACT WRITER documented as of this encounter Plan of Treatment Not on file documented as of this encounter Procedures Procedure Name Priority Date/Time Associated Diagnosis Comments EXTERNAL MED REC-IMAGING 04/24/2023 5:06 PM CONTRACT WRITER documented in this encounter Results * EXTERNAL MED REC-IMAGING (04/24/2023 5:06 PM CONTRACT WRITER) Anatomical Region Laterality Modality Other Narrative 04/24/2023 5:06 PM CONTRACT WRITER Ordered by an unspecified provider. Provider Unknown RAD CT BODY documented in this encounter Visit Diagnoses Not on filedocumented in this encounter Additional Health Concerns Assessment Noted Time PHQ-9 Depression Total Score: 9 03/12/20 1:30 PM CONTRACT WRITER PHQ-2 Depression Total Score: 3 03/12/20 1:30 PM CONTRACT WRITER documented as of this encounter Care Teams Quarter Backer Relationship Specialty Start Date End Date Gale Garcia MD [address] [place] [id number] PCP - General Internal Medicine 03/10/23 documented as of this encounter
--- OUTSIDE RECORDS SUMMARY | 2023-08-12 08:32 | XMS_ITS | Referral Summary ---
Author Name Unknown Organization [facility] Address [address] [place] [address] Phone Care Team Providers Care Professor Of Medicine Name Role Phone Gale Garcia MD Primary Care Provider Source Comments [employer] is fully rolled out on Cost Effective Data. Last update 09/16/08.[facility] Encounters Date Type Department Care Team Description 07/21/2023 8:40 AM CDT [facility]icine [facility] [address] [place] [id number] Diane Murray MD Subdural hematoma (CMS) (Primary Dx) Discharge Disposition: Discharged to home or self care (routine discharge) 07/10/2023 Travel 07/10/2023 10:16 AM CDT - 07/10/2023 11:59 PM CDT Hospital En[place] [facility] [address] [place] [address] Diane Murray MD 1, Eeg - Outpatient Discharge Disposition: Discharged to home or self care (routine discharge) 06/11/2023 Travel 06/11/2023 10:00 AM GEAR SETTER Office Visit [facility] [address] [place] [id number] Diane Murray MD Subdural hematoma (CMS) (Primary Dx) Discharge Disposition: Discharged to home or self care (routine discharge) 05/30/2023 Refill [facility] [address] [place] [phone] Nazanin Aguirre, MELANIE Other from Last 3 Months Allergies No known active allergies Medications * [...] Anticoagulation goal of INR 2.5 to 3.5 3 Generalized anxiety disorder 04/02/2023 Depression 04/02/2023 Aortic root aneurysm (CMS) 04/02/2023 Left carpal tunnel syndrome 04/02/2023 Pain in left finger(s) 04/02/2023 Psoriasis 04/02/2023 Sleep apnea 04/02/2023 Acute subdural hematoma (CMS) 04/02/2023 Obesity, unspecified 03/19/2023 Subdural hematoma (CMS) 03/05/2023 Male erectile dysfunction, unspecified 3 Unspecified osteoarthritis, unspecified site Drug induced constipation 11/07/2020 Pain in joint 11/07/2020 Other specified complication s of surgical and medical care, not elsewhere classified, subsequent encounter 06/22/2020 Hodgkin lymphoma, unspecifie d, lymph nodes of axilla and upper limb (CMS/[facility]) 05/10/2020 Other specified joint disorders, right ankle and foot 11/23/2019 Primary osteoarthritis, right ankle and foot 09/2019 Overview: Added automatically from request for surgery [id number] Personal history of other di seases of the circulatory system 03/23/2018 Pain in left wrist 10/08/2017 Overview: Added automatically from request for surgery [id number] Peyronie's disease 12/04/2016 Dilated aortic root ([facility]) 03/04/2016 Presence of prosthetic heart valve 04/28/2015 Acute delirium 03/06/2015 Abdominal aortic aneurysm dissection ([facility]) 1 05/02/2014 Arthropathic psoriasis, unspecified ([facility]) Chronic pain syndrome 10/21/2013 Overview: Pain Dx: psoriatic arthritis Preferred Pharmacy: [facility] [place] Comments: Opioid contract renewed 10/21/13 mgr. Anxiety state 01/28/2013 Recurrent major depression in partial remission ([facility]) 01/28/2013 Osteoarthritis of foot 08/31/2012 S/P shoulder [...] Colonoscopy 2007 polyps. 03/25 normal. Next 2016 terminal clerk (current) use of anticoagulants 2003 Overview: Overview: Updated per 01/12/17 IMO import Updated per 01/12/17 IMO import Other specified anxiety disorders 04/12/2002 Overview: Previous treatment with wellbutrin, prozac, effexor, celexa Obstructive sleep apnea (adult) (pediatric) 09/2001 Overview: Sleep study 09/29/97. Tolerated nasal CPAP poorly. He had a previous UPP, but not done for SARITA or snoring. 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 Resolved Problems Problem Noted Date Diagnosed Date Resolved Date Special screening for malign ant neoplasms, colon 01/20/2012 05/14/2023 Immunizations Name Administration Dates Next Due Diphtheria [...] Quadrivalent 02/20/2023,03/05/2022 Influenza Vaccine, Unspecified 01/25/2015 Novel [id number], all formulations 05/10/2009 Pneumococcal Conjugate, 13 - [...] Comments Blood Pressure 113/70 06/11/2023 10:10 AM GEAR SETTER Pulse 84 06/11/2023 10:10 AM GEAR SETTER Temperature 36 ??C (96.8 ??F) 03/19/2023 11:08 AM GEAR SETTER Respiratory Rate 18 03/19/2023 11:08 AM GEAR SETTER Oxygen Saturation 98% 03/14/2023 10:53 AM GEAR SETTER Inhaled Oxygen Concentration - - Weight 108.9 kg (240 lb) 06/11/2023 10:10 AM GEAR SETTER Height 175.3 cm (5' 9) 03/05/2023 10:00 PM GEAR SETTER Body Mass Index 35.44 03/05/2023 10:00 PM GEAR SETTER Plan of Treatment Not on file Medical Devices Implanted Type Area Field Worker Device Identifier Shelf Expiration Date Model / Serial / Lot Ren Hole Cover, 17mm [id number] Implanted:Qty: 1 on 03/08/2023 by Jose Mims MD at [facility] Plate Left: Skull [employer]age [facility] [id number] / / Square Box Plate, 4 Hole [id number] Implanted:Qty: 2 on 03/08/2023 by Jose Mims MD at [facility] Plate Left: Skull [employer] [facility] [id number] / / 4mm [id number] Implanted:Qty: 14 on 03/08/2023 by Jose Mims MD at [facility] Screw/[place] Left: Brain SYNTHES [facility] [id number] / / Description:13 screws implan anitha, one screw wasted Procedures Procedure Name Priority Date/Time Associated Diagnosis Comments EEG Routine 07/10/2023 10:16 AM CDT Subdural hematoma (CMS) PANEL LIPID Routine 03/13/2023 6:42 AM GEAR SETTER from Last 3 Months or Most Recently Relevant to Health Maintenance Results * PANEL LIPID (03/13/2023 6:42 AM GEAR SETTER) Cholesterol 125 <=200 mg/dL [facility] Comment: Interpretive Data <200 Desirable 200-239 Borderline high >=240 High HDL 45 >=40 mg/dL [facility] Comment: Interpretive Data Normal > 40 Male > 50 Female Triglyceride 79 <=150 mg/dL [facility] Comment: Interpretive Data <150 Normal 150-199 Borderline high 200-499 High >=500 Very high Calc LDL 64 <=100 mg/dL [facility] Comment: Interpretive Data <100 Desirable 100-129 Above desirable 130-159 Borderline high 160-189 High >=190 Very high Non-HDL Cholesterol Calculated 80 <=130 mg/dL [facility] Comment: Interpretive Data <130 Desirable 130-159 Above desirable 160-189 Borderline high 190-219 High >=220 Very high Blood 03/13/2023 6:42 AM GEAR SETTER 03/13/2023 6:46 AM GEAR SETTER Narrative [facility] - 03/13/2023 7:58 AM GEAR SETTER Fasting: No Jose Mims MD LABORATORY [facility] [address] [address] from Last 3 Months or Most Recently Relevant to Health Maintenance Advance Directives For more information, please contact: [phone] * Full Code (Latest Code Status on File) Date Activated Date Inactivated Comments 03/05/2023 11:06 PM 03/14/2023 8:12 PM Question Answer Comments Does the Patient have prefer ences regarding life sustaining measures (these options only apply when the patient has a pulse): No Discussed Code Status With Whom? Not discussed Care Teams Professor Of Medicine Relationship Specialty Start Date End Date Gale Garcia MD [address] [place] [address] PCP - General Internal Medicine 03/10/23
--- OUTSIDE RECORDS SUMMARY | 2023-08-12 08:32 | XMS_ITS | Clinical Summary ---
Author Name Unknown Organization [facility] Address [place], [place] [address] Care Team Providers Care Stud Master/Mistress Name Role Phone Pcp, No Primary Care Provider Unavailabl e Allergies No known active allergies Medications Medication Sig Dispensed Refills Start Date End Date Status warfarin (COUMADIN) 5 mg tablet Take 5 mg by mouth once daily. 11/09/2016 Active STELARA 45 mg/0.5 mL syrg 09/25/2016 Active traZODone (DESYREL) 50 mg tablet 09/26/2016 Active simvastatin (ZOCOR) 10 mg tablet Take 10 mg by mouth once daily. 09/12/2016 Active losartan (COZAAR) 100 mg tablet Take 100 mg by mouth once daily. 08/31/2016 Active celecoxib (CELEBREX) 200 mg capsule Take 200 mg by mouth once daily with a meal. 10/08/2016 Active clonazePAM (KLONOPIN) 0.5 mg tablet Take 0.5 mg by mouth once daily. 11/07/2016 Active DULoxetine (CYMBALTA) 60 mg Delayed-release capsule Take 60 mg by mouth once daily. 09/04/2016 Active cholecalciferol (VITAMIN D3) 1,000 unit tablet Take 1,000 Units by mouth once daily. Active acetaminophen (TYLENOL) 325 mg tablet Take 325-650 mg by mouth every 4 hours. Active labetalol (TRANDATE) 200 mg tablet Take 400 mg by mouth 3 times daily. Active lansoprazole (PREVACID) 30 mg capsule Take 30 mg by mouth once daily. Active celecoxib (CELEBREX) 200 mg capsule Take 200 mg by mouth 2 times daily with meals. Active Ustekinumab 45 mg/0.5 mL syrg Inject 45 mg subcutaneous every 12 weeks every 12 weeks. Active folic acid 1 mg tablet Take [...] 100 MG PER 24 HOURS 10 tablet 02/06/2018 Active Active Problems Problem Noted Date [...] Comments Blood Pressure 126/75 04/02/2017 10:53 AM COPPERSMITH HELPER Pulse 64 04/02/2017 10:53 AM COPPERSMITH HELPER Temperature 36.9 ??C (98.5 ??F) 04/02/2017 1 0:53 AM COPPERSMITH HELPER Respiratory Rate 16 12/04/2016 8:14 AM CDT Oxygen Saturation 95% 04/02/2017 10: 53 AM COPPERSMITH HELPER Inhaled Oxygen Concentration - - Weight 106.5 kg (234 lb 12.8 oz) 04/02/2017 10:53 AM COPPERSMITH HELPER Patient weighed with shoes on. Height - [...] 1 - PCV) 022 COVID-19 vaccine series ( season) 3 12/20/2020 Influenza for age 65+ 12/14/2023 01/27/2017 Care Teams Stud Master/Mistress Relationship Specialty Start Date End Date Pcp, No . PCP - General 10/21/16
--- OUTSIDE RECORDS SUMMARY | 2023-08-12 08:32 | XMS_ITS | Encounter Summary ---
Author Name Unknown Organization [facility] Address [address] [place] [address] Phone Care Team Providers Care Surgical Elastic Knitter Name Role Phone Gale Garcia MD Primary Care Provider Reason for Visit * Reason Comments Other Encounter Details Date Type Department Care Team (Late st Contact Info) Description 05/30/2023 Refill [facility] [address] [address] Nazanin Aguirre, PAMelidaC [address] [place] [address] Other Social History Tobacco Use Types Packs/Day Years Used Date Smoking Tobacco: Never Assessed PHQ-2 Answer Date Recorded PHQ-2 Subtotal 3 03/12/2023 Sex and Gender Information Value Date Recorded Sex Assigned at Not on file Gender Identity Not on file Sexual Orientation Not on file documented as of this encounter Miscellaneous Notes * Telephone Encounter - January Wilkinson RN - 06/02/2023 9:01 AM CST D: Medication Refill Request: Medication: Requested Prescriptions Pending Prescriptions Disp Refills levETIRAcetam (KEPPRA) 1000 mg oral TABS [Pharmacy Med Name: LEVETIRACETAM 1,000 MG TABLET] 120 tablet 0 Sig: TAKE 1 TABLET (1,000 MG) BY MOUTH TWICE DAILY FOR 60 DAYS. Last Refilled: 05/02 with 60 day supply. For titrated medications, current dose/number of pills patient is taking: N/A Comments re: frequency, dose, gaps in medication: N/A Refill Protocol: No Previous Order Last Clinic Office Visit: 03/31 Per RANDALL: -Continue to take Keppra 1000 mg twice daily until evaluated by neurology -referred to neurology at [place] Continue with restrictions. Follow up telephone visit in 4 weeks with HCT prior. HCT to be completed at [facility]. Next Scheduled Office Visit: none in neurosurgery. Patient has follow up in Neurology on 06/11/23. A: Required Monitoring: Not Applicable R/P: Refill Prescription: Denied- patient given enough tabs to last until 07/01/23, patient to get refills from Neurology. January Wilkinson RN, 06/02/2023 9:02 AM ENGINEER documented in this encounter Plan of Treatment Not on file documented as of this encounter Visit Diagnoses Not on filedocumented in this encounter Additional Health Concerns Assessment Noted Time PHQ-9 Depression Total Score: 9 03/12/20 1:30 PM JAVA ENGINEER PHQ-2 Depression Total Score: 3 03/12/20 1:30 PM JAVA ENGINEER documented as of this encounter Care Teams Surgical Elastic Knitter Relationship Specialty Start Date End Date Gale Garcia MD [address] [place] [address] PCP - General Internal Medicine 03/10/23 documented as of this encounter
--- OUTSIDE RECORDS SUMMARY | 2023-08-12 08:32 | XMS_ITS | Encounter Summary ---
Author Name Unknown Organization [facility] Address [address] [place] [address] Phone Care Team Providers Care Visual Coordinator Name Role Phone Gale Garcia MD Primary Care Provider [phone] Reason for Visit * Reason Comments Neurologic Problem Seizure Follow-up Encounter Details Date Type Department Care Team (Late st Contact Info) Description 07/21/2023 8:40 AM CDT [facility]medicine [facility] Neurology Clinic [address] [address] Diane Murray MD [address] [place] [id number] Subdural hematoma (CMS) (Primary Dx) Discharge Disposition: Discharged to home or self care (routine discharge) Social History Tobacco Use Types Packs/Day Years Used Date Smoking Tobacco: Never Assessed PHQ-2 Answer Date Recorded PHQ-2 Subtotal 3 03/12/2023 Sex and Gender Information Value Date Recorded Sex Assigned at Not on file Gender Identity Not on file Sexual Orientation Not on file documented as of this encounter Patient Instructions * Patient Instructions* Diane Murray MD - 07/21/2023 8:40 AM CDT Lifestyle modification recommendations: balanced diet and exercise, maintain adequate hydration, obtain consistent, sufficient sleep. Seizure precautions: avoid areas of unprotected heights, open flames, and open bodies of water. Take showers instead of baths and leave the bathroom door unlocked. Make sure someone knows where you are and what you are doing. Avoid sleep deprivation, dehydration, alcohol, and illicit drug use. If seizure lasts > 3 minutes, recur back to back, or if you're not returning to baseline, witness should call 911 and you should be taken to hospital. No driving x 3 months after episode of loss of consciousness/impaired consciousness/seizure. Pleaserefer to information provided (DMV reporting form) and [place] Administrative Rules: https://www.revisor.ar.gov/rules/7410.2500. If you have a breakthrough seizure, and need not go to the ER, then notify neurology clinic promptly and plan on being seen promptly in the clinic. Neurology Clinic number is [phone]. Can stay off of keppra. Follow-up as needed with general neurology Follow-up in stroke clinic documented in this encounter Progress Notes * Diane Murray MD - 07/21/2023 8:40 AM CDT [facility] Get Ovalles : 1955 Sex: male Medical Decision Making: This is a 68 yo M with history of AAA, AVR with mechanical valvue, OSWA, traumatic SDH S/p craniotomy and left M2 thrombus. During Feb 2023 hospitalization an episode of expressive aphasia during therapy session occurred, and lead to diagnosis of partially occlusive left M2 thrombus. STroke team had recommended that he be switched back to heparin when able (during his hospiatlion), and now he is back on warfarin. EEG showed breach rhythm and intermittent slowing in the same region; no overt seizures or clear electrographic evidence of epileptogenicity. However, if he has a seizure in the future, we would strongly recommend antiepileptic medication; it does not have to be keppra and it could be something else, but with him being on Warfarin, Keppra would be the safest to be on. It may be possible for him to resume a lower dose of keppra; and also if needed, we could add Vitamin B6 to possibly prevent theirritability from the keppra. If he has symptoms of stroke and/or seizure, which, for him, may be confusing, or any signs of neurological deficits, it would be prudent to call EMS and be taken to local ER for immediate evaluation. Lifestyle modification recommendations: balanced diet and exercise, maintain adequate hydration, obtain consistent, sufficient sleep. Seizure precautions: avoid areas of unprotected heights, open flames, and open bodies of water. Take showers instead of baths and leave the bathroom door unlocked. Make sure someone knows where you are and what you are doing. Avoid sleep deprivation, dehydration, alcohol, and illicit drug use. If seizure lasts > 3 minutes, recur back to back, or if you're not returning to baseline, witness should call 911 and you should be taken to hospital. No driving x 3 months after episode of loss of consciousness/impaired consciousness/seizure. Pleaserefer to information provided (DMV reporting form) and [place] Administrative Rules: https://www.revisor.ar.gov/rules/7410.2500. If you have a breakthrough seizure, and need not go to the ER, then notify neurology clinic promptly and plan on being seen promptly in the clinic. Neurology Clinic number is [phone]. Can stay off of keppra. Follow-up as needed with general neurology Follow-up in stroke clinic Return for stroke clinic follow-up. History of Present Illness: Cc: seizure Referred by Nazanin Aguirre PA-C HPI: This is a 68 yo M s/p SDH evacuation, with history of AAA, AVR with mechanical valve in place,Hodgkin's lymphoma, SARITA, HTN, who was found to have traumatic SDH, now s/p craniotomy. Last visit was on 06/11/23 at which time he was off of keppra and we recommended 3 hour EEG and follow-up afterwards. He is present with his , Daly, who provides collateral information. In the interim, Get Ovalles has had no seizures. 3-hr EEG was done on 07/10/23: breach rhythm 2/2 craniotomy; some intermittent focal slowing in leftparasagittal quadrant Chart review: 03/31/23 - seen in [facility] for follow-up. Aphasia resolved. Referred to neurologist to rule out seizure. On warfarin because of artifical heart valve and stent. Continue keppra 1000mg po bid. Referred toneurology at [place]. During hospitalization in Feb 2023, he had suspected TIA with expressive aphasiaduring therapy session. Stroke team activated and he was found to have a partially occlusive left M2 thrombus. ED He quit keppra 1000 mg po bid mid Apr 2023. Doctors have told him that he could have mood swings. said, It was extremely difficult. He had extreme irritability. Since he stopped taking Keppra, his mood has been much better. Get and his are in counseling as well; he is prioritizing their relationship! He has no episodes of aphasia that he nor his can recall since leaving the hospital in February 2023. Back in 03/19/23, he had a follow-up in [facility] clinic, at which time he and his reported that he has aphasia 50% of the time, lasting for several hours at a time, worsening as the day goes on. He was to continue keppra 1000mg po biD. [facility] MELANIE was not sure if these were seizures; ad discussed with 2 [facility] attendings. Head cT done that day was stable. ROS No seizures There were no vitals filed for this visit. Estimated body mass index is 35.44 kg/m?? as calculated from the following: Height as of 03/05/23: 1.753 m (5' 9). Weight as of 06/11/23: 108.9 kg (240 lb). Physical Exam Vitals reviewed. Constitutional: Appearance: Normal appearance. HENT: Head: Normocephalic. Pulmonary: Effort: Pulmonary effort is normal. Neurological: Mental Status: He is alert. Psychiatric: Mood and Affect: Mood normal. Behavior: Behavior normal. Thought Content: Thought content normal. Telemedicine: AQH Video Visit: This telemedicine visit is conducted by audio and video technology between thepatient and provider. Informed consent was provided during e-check in and signed by patient. Patient was offered opportunity to ask any questions. Patient's Physical Location: Home Provider's Physical Location: Offsite Participants in this Telemedicine Visit other than the patient/provided included: Daly This visit started at: 8:40 AM and concluded at: 8:56 AM. documented in this encounter Plan of Treatment Not on file documented as of this encounter Visit Diagnoses Diagnosis Subdural hematoma (CMS)- Primary Subdural hemorrhage documented in this encounter Additional Health Concerns Assessment Noted Time PHQ-9 Depression Total Score: 9 03/12/20 1:30 PM WAREHOUSE TEAM MEMBER PHQ-2 Depression Total Score: 3 03/12/20 1:30 PM WAREHOUSE TEAM MEMBER documented as of this encounter Care Teams Visual Coordinator Relationship Specialty Start Date End Date Gale Garcia MD [address] [place] [id number] PCP - General Internal Medicine 03/10/23 documented as of this encounter
--- OUTSIDE RECORDS SUMMARY | 2023-08-12 08:32 | XMS_ITS | Encounter Summary ---
Author Name Unknown Organization [facility] Address [address] [facility] [address] [place] [address] Phone Care Team Providers Care Supervisor Core Drilling Name Role Phone Gale Garcia MD Primary Care Provider Encounter Details Date Type Department Care Team (Late st Contact Info) Description 04/28/2023 Orders Only [facility] Radiology Department [facility] [address] [place] [address]. [address] [id number] Provider, [place] [address] Referral of patient (Primary Dx) Social History Tobacco Use Types [...] Coronavirus/COVID-19? No / Unsure 04/02/2023 7:34 AM PROCESS TANK TENDER documented as of this encounter Plan of Treatment Not on file documented as of this encounter Results * CT HEAD OUTSIDE FILMS (04/24/2023 1:25 PM PROCESS TANK TENDER) Carrington AvilaSilent-Scheduler - 04/28/2023 6:33 AM PROCESS TANK TENDER Outside Film Only Outside Provider RAD OUTSIDE FILMS documented in this encounter Visit Diagnoses Diagnosis Referral of patient- Primary Referral of patient without examination or treatment documented in this encounter Additional Health Concerns Assessment Noted Time PHQ-9 Depression Total Score: 9 03/12/20 1:30 PM PROCESS TANK TENDER PHQ-2 Depression Total Score: 3 03/12/20 1:30 PM PROCESS TANK TENDER documented as of this encounter Care Teams Supervisor Core Drilling Relationship Specialty Start Date End Date Gale Garcia MD [address] [place] [id number] PCP - General Internal Medicine 03/10/23 documented as of this encounter
--- OUTSIDE RECORDS SUMMARY | 2023-08-12 08:32 | XMS_ITS | Encounter Summary ---
Author Name Unknown Organization [facility] Address [address] [place] [address] Phone Care Team Providers Care Coat Check Attendant Name Role Phone Gale Garcia MD Primary Care Provider [phone] Encounter Details Date Type Department Care Team (Latest Contact Info) Description 06/11/2023 Travel Social History Tobacco Use Types Packs/Day Years [...] Time PHQ-9 Depression Total Score: 9 03/12/20 23 1:30 PM CEMENT SPRAYER HELPER PHQ-2 Depression Total Score: 3 03/12/20 23 1:30 PM CEMENT SPRAYER HELPER documented as of this encounter Care Teams Coat Check Attendant Relationship Specialty Start Date End Date Gale Garcia MD [address] [place] [address] PCP - General Internal Medicine 03/10/23 documented as of this encounter
--- OUTSIDE RECORDS SUMMARY | 2023-08-12 08:32 | XMS_ITS | Clinical Summary ---
Author Name Unknown Organization [facility] Address [address] [place] [address] Care Team Providers Care Supervisor Plastics Name Role Phone Elsewhere, Pcp Primary Care Provider Unavailabl e Source Comments Patient records contain information from all sites at [facility]. For routine questions regarding patient records, call [phone] during business hours, M-F 8:00 AM - 5:00 PM Central Time. Record requests for emergency care only can be directed to [phone] at any time.[facility] Allergies No known active allergies Medications Medication Sig Dispensed Refills Start Date End Date Status cholecalciferol (VITAMIN D3) 50 mcg (2,000 Unit) capsule Take 2,000 Units by mouth daily. 05/02/2014 Active amLODIPine (NORVASC) 10 mg tablet Take 10 mg by mouth daily. 03/11/2015 Active venlafaxine XR (EFFEXOR-XR) 75 mg 24 hr capsule Take 75 mg by mouth daily. ALSO TAKES A 150 MG CAPSULE DAILY WITH BREAKFAST - 09/22/2019 Active acetaminophen (TYLENOL) 500 mg tablet Take 1,000 mg by mouth every 6 (six) hours as needed for pain. Active sennosides-docusat e sodium (Senna with Docusate Sodium) 8.6-50 mg per tablet Take 1 tablet by mouth at bedtime as needed. For constipation 10/04/2020 Active Additional Information Patient taking differently:1 tablet oral Bedtime PRN,constipation, (No instructions reported), Reported on 06/17/2023 loperamide (IMODIUM A-D) 2 mg tablet Take 1 mg by mouth 2 (two) times a day as needed for diarrhea. Active warfarin (Coumadin) 5 mg tablet Take 1.5-2 tablets (7.5-10 mg total) by mouth daily. 10 mg on , , Sat. 7.5 mg all other days 10/19/2020 Active Additional Information Patient taking differently:7.5-10 mg oral Daily, 7.5 mg on Mondays, Wednesdays and Fridays - 10 mg the other days. omeprazole (PriLOSEC) [address] capsule Take 20 mg by mouth as needed. 11/25/2011 Active venlafaxine XR (EFFEXOR-XR) 150 mg 24 hr capsule Take 150 mg by mouth daily with breakfast. ALSO TAKES A 75 MG CAPSULE DAILY WITH BREAKFAST - 08/05/2021 Active sildenafiL (VIAGRA) 50 mg tablet Take 1 tablet (50 mg total) by mouth daily as needed for erectile dysfunction. 20 tablet 2 05/22/2022 Active needle, disp, 27 gauge 27 gauge x 1/2 needleIndications: Arthritis Psoriatic (HCC) For methotrexate injections. 12 each 2 09/26/2022 Active SQ 1 Ml Injection KitIndications:Art hritis Psoriatic (HCC) For methotrexate injections 1 kit 3 09/26/2022 Active folic acid 1 mg tabletIndications: Arthritis Psoriatic (HCC) Take 2 tablets (2,000 mcg total) by mouth daily. 180 tablet 3 09/26/2022 Active Additional Information Patient taking differently: 1 mgoral2 times daily, Reported on 06/17/2023 atorvastatin (LIPITOR) 40 mg tablet TAKE 1 TABLET BY MOUTH EVERY DAY 90 tablet 3 02/06/2023 Active Additional Information Patient taking differently: 40 mg oral Daily, Reported on 06/17/2023 mirtazapine (REMERON) 7.5 mg tablet Take 7.5 mg by mouth at bedtime. 01/16/2023 Active labetaloL (NORMODYNE) 100 mg tablet Take 100 mg by mouth 2 (two) times a day. 03/14/2023 Active enoxaparin (LOVENOX) 100 mg/mL injection Inject 100 mg under the skin as needed. 03/17/2023 Active desvenlafaxine (PRISTIQ) 50 mg 24 hr tablet Take 50 mg by mouth daily. 03/04/2023 Active RX WELCOME [id number] P ONLY Welcome packet 1 each 04/10/2023 Active RX SIMPONI PATIENT KIT-OP ONLY SIMPONI PATIENT KIT 1 each 04/10/2023 Active alcohol swabs (Alcohol Prep) pads, medicated As directed 100 each 04/10/2023 Active RX 1/2 Gallon Sharps Container Sharps /2 Gallon Sharps Container 1 each 04/10/2023 Active syringe with needle (BD Tuberculin Syringe) 1 mL 27 x 2 syringeIndications :Arthritis Psoriatic (HCC) Inject 1 Syringe under the skin once a week. For use with weekly Methotrexate Injections. 25 each 1 05/14/2023 Active losartan (COZAAR) 100 mg tablet Take 100 mg by mouth daily. Active doxycycline hyclate (VIBRA-TABS) 100 mg tablet Take 100 mg by mouth 2 (two) times a day. 09/27/2022 Active triamcinolone (KENALOG) 0.5 % cream Apply 1 Application topically as needed. 11/07/2022 Active tirzepatide (Zepbound) 2.5 mg/0.5 mL injection Inject 2.5 mg under the skin every 7 (seven) days. 2 mL 06/18/2023 Active tirzepatide (Zepbound) 5 mg/0.5 mL injection Inject 5 mg under the skin every 7 (seven) days. 2 mL 06/18/2023 Active tirzepatide (Zepbound) 7.5 mg/0.5 mL injection Inject 7.5 mg under the skin every 7 (seven) days. 2 mL 06/18/2023 Active tirzepatide (Zepbound) 10 mg/0.5 mL injection Inject 10 mg under the skin every 7 (seven) days. 2 mL 06/18/2023 Active methotrexate 25 mg/mL injectionIndicatio ns:Arthritis Psoriatic (HCC) INJECT 0.7 ML (17.5 MG TOTAL) UNDER THE SKIN ONCE A WEEK. 10 mL 1 06/24/2023 Active furosemide (LASIX) 20 mg tablet take 1 tablet by mouth every day 90 tablet 3 06/26/2023 Active predniSONE (DELTASONE) 5 mg tabletIndications: Arthritis Psoriatic (HCC) 4 tabs x 3 days, 3 tabs x 3 days, 2 tabs x 3 days, 1 tabs x 3 days, off 30 tablet 07/21/2023 Active semaglutide (Wegovy) 0.25 mg/0.5 mL pen injector injectionIndicatio ns:Obesity Body Mass Index 30-39.9 Adult Inject 0.25 mg under the skin every 7 (seven) days. Follow prescriber's dose escalation instructions. 2 mL 07/23/2023 Active semaglutide (Wegovy) 0.5 mg/0.5 mL pen injector injectionIndicatio ns:Obesity Body Mass Index 30-39.9 Adult Inject 0.5 mg under the skin every 7 (seven) days. Follow prescriber's dose escalation instructions. 2 mL 07/23/2023 Active semaglutide (Wegovy) 1 mg/0.5 mL pen injector injectionIndicatio ns:Obesity Body Mass Index 30-39.9 Adult Inject 1 mg under the skin every 7 (seven) days. Follow prescriber's dose escalation instructions. 2 mL 07/23/2023 Active semaglutide (Wegovy) 1.7 mg/0.75 mL pen injector injectionIndicatio ns:Obesity Body Mass Index 30-39.9 Adult Inject 1.7 mg under the skin every 7 (seven) days. Follow prescriber's dose escalation instructions. 3 mL 1 07/23/2023 Active semaglutide (Wegovy) 2.4 mg/0.75 mL pen injector injectionIndicatio ns:Obesity Body Mass Index 30-39.9 Adult Inject 2.4 mg under the skin every 7 (seven) days. Follow prescriber's dose escalation instructions. 3 mL 11 07/23/2023 Active Active Problems Problem Noted Date Diagnosed [...] Overview: Added automatically from request for surgery [id number] Aneurysm Thoracic Aorta Personal History 018 Pain Wrist Left 10/08/2017 Overview: Added automatically from request for surgery [id number] Dilated Aortic Root 03/04/2016 Hypertension Essential Primary 03/04/2016 Prosthesis Aortic Valve 04/28/2015 Arthritis Psoriatic 05/03/2014 Fpc (Current) Anticoagulant Treatment 12/2003 Overview: Overview: Updated per 01/12/17 IMO import Pain Thumb Left Coronary Artery Disease Without Angina Pectoris Sleep Apnea Resolved Problems Problem Noted Date Diagnosed Date Resolved Date 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 AVR and ascending aortic graft on 07/14. On lifelong anticoagulation. Encounters Date Type Department Care Team Description 08/11/2023 11:00 AM CDT Infusion Department of Infusion Therapy in [address] [phone] Bárbara Soto APRN, C.N.P. Arthritis Psoriatic (HCC) (Primary Dx) 08/08/2023 Refill Division of Rheumatology in [address] [phone] Bárbara Soto APRN, C.N.P. Med Refill 07/23/2023 9:49 AM CDT - 07/23/2023 11:59 PM CDT Hospital Encounter Department of Laboratory Medicine in [address] [phone] Bárbara Soto APRN, C.N.P. Medication Therapy Construction Secretary Not Anticoagulant Discharge Disposition: Home or Self Care 07/08/2023 Clinical Communication Division of Endocrinology in [place], [place] [address] [place] [phone] Get Ragland APRN, C.N.P., D.N.P. Rx Denial (Zepbound) 06/26/2023 Clinical Communication Division of Rheumatology in [address] [phone] Trang Montalvo R.N. 06/26/2023 Refill Department of Cardiovascular Diseases in [address] [phone] Ok Padilla M.D. Med Refill 06/23/2023 Orders Only Division of Rheumatology in [address] [phone] Bárbara Soto APRN, C.N.P. 06/19/2023 Refill Division of Rheumatology in [address] [phone] Bárbara Soto APRN, C.N.P. Med Refill 06/18/2023 2:00 PM SAND HAULER Virtual Visit Division of Endocrinology in [address] [phone] Get Ragland APRN, C.N.PRebecca, D.N.P. Obesity Body Mass Index 30-39.9 Adult (Primary Dx); Hypertension Essential Primary; Coronary Artery Disease Without Angina Pectoris; Sleep Apnea 06/18/2023 Refill Division of Endocrinology in [address] [phone] Get Ragland APRN, C.N.PRebecca, D.N.P. Med Change Request 06/17/2023 10:30 AM SAND HAULER Clinical Communication Virtual Review in [address] [phone] Pre-visit Intake 06/16/2023 11:30 AM SAND HAULER Infusion Department of Infusion Therapy in [address] [phone] Bárbara Soto APRN C.N.P. Arthritis Psoriatic (HCC) (Primary Dx) 06/12/2023 Clinical Communication Department of Infusion Therapy in [address] [phone] Ashleigh Zuluaga R.N. 05/30/2023 1:00 PM SAND HAULER Office Visit Division of Hematology in [place], [place] [address] [place] [address] Sole Read APRN, C.N.PRebecca, D.N.P. Hodgkin Lymphoma Unspecified Lymph Nodes Of Axilla And Upper Limb (HCC) (Primary Dx) 05/30/2023 10:20 AM SAND HAULER - 05/30/2023 11:59 PM SAND HAULER Hospital Encounter Department of Laboratory Medicine and Pathology, [facility] in [place], [place] [address] [place] [address] Sole Read APRN, C.N.P., D.N.P. Hodgkin Lymphoma Unspecified Lymph Nodes Of Axilla And Upper Limb (HCC) Discharge Disposition: Home or Self Care 05/14/2023 Refill Division of Rheumatology in [place], [place] [address] [place] [address] Bárbara Soto APRN, C.N.P. Med Refill from Last 3 Months Immunizations Name Administration Dates Next Due Influenza TIV (IM) 01/17/2021, 2,01/24/2009,2007 Influenza high dose QV(65 ye ars or older) (PF) 02/20/2023,03/05/2022 Influenza, Injectable, Mdck, Preservative Free, Quadrivalent 01/27/2017 Influenza, Seasonal, Injectable 01/17/2021 Influenza, Unspecified 01/25/2015 PCV13 04/22/2013 PCV20 12/03/2022 RSV: respiratory syncytial v irus (AREXVY) recombinant vaccine 02/20/2023 RZV (SHINGRIX) 06/16/2018,04/09/2018 SARS-COV-2 (COVID-19) - PFIZ ER (Discontinued)(12 years or older) 12/20/2020 Td (Adult), adsorbed 07/12/2003,11/06/1992 Tdap 12/23/2022,04/17/2012 influenza vaccine quad (FLUZONE/FLUARIX) (6 months and older)(PF) 01/17/2021,02/25/2020,03/08/2019,2017,01/27/2017,01/12/2016,01/25/2015,1 ,01/29/2013,01/09/2012, 010,01/24/2009,02/16/2008,02/19/2006 Family History Medical History Relation Name Comments Arthritis Father Bang Ovalles Coronary artery disease Father Bang Smith i Diabetes Father Bang Ovalles Hyperlipidemia Father [...] week 07/16/2022 How often do you attend [facility] or sikh services? Never 07/16/2022 Do you [...] and heating? Not hard at all 09/19/2022 [facility] - Occupational Stress Questionnaire Answer Date [...] your living situation today? I have a [facility] place to live 09/19/2022 Education Answer Date Recorded What is the highest level of school you have completed or the highest degree you have received? Master's degree (e.g., MA, MS, Starla, MEd, FLUX PLANT OPERATOR, DEBRA) 09/16/2018 Sex and Gender Information Value Date Recorded Sex Assigned at Male 10/08/2017 8:25 AM CDT Gender Identity Male 10/08/2017 8:25 AM CDT Sexual Orientation Straight 10/08/2017 8: 25 AM CDT Last Filed Vital Signs Vital Sign Reading Time Taken Comments Blood Pressure 111/57 08/11/2023 12:18 PM CDT Pulse 84 08/11/2023 12:18 PM CDT Temperature 35.9 ??C (96.6 ??F) 08/11/2023 12:18 PM C DT Respiratory Rate 18 08/11/2023 12:18 PM CDT Oxygen Saturation 95% 08/11/2023 12:18 PM CDT Inhaled Oxygen Concentration - - Weight 110 kg (242 lb 6.3 oz) 08/11/2023 10:59 A M CDT Height 178.6 cm (5' 10.32) 06/18/2023 2:[address] Body Mass Index 34.47 06/18/2023 2:48 PM SAND HAULER Plan of Treatment Upcoming Encounters Date Type Department Care Team (Latest Contact Info) Description 09/10/2023 12:30 PM CDT Appointment Department of Cardiovascular Diseases in [place], [place] Jesus [address] [place] [phone] Ok Padilla M.D. [address] [place] [address] 09/11/2023 11:45 AM CDT Office Visit Department of Cardiovascular Diseases in [place], [place] [address] [place] [phone] kO Padilla M.D. [address] [place] [phone] Discharge Disposition: Home or Self Care 09/17/2023 8:15 AM CDT Clinical Communication Virtual Review in [place], [place] [address] [place] [address] 09/18/2023 10:00 AM CDT Appointment Department of Laboratory Medicine and Pathology, [facility], in [address] [phone] Bárbara Soto APRN, C.N.P. [address] [place] [phone] 09/18/2023 2:00 PM CDT Office Visit Division of Rheumatology in [place], [place] [address] [place] [phone] Bárbara Soto APRN, C.N.P. [address] [place] [phone] 10/02/2023 10:00 AM CDT Virtual Visit Division of Endocrinology in [address] [phone] Get Ragland APRN, C.N.P., D.N.P. [address] [place] [phone] Health Maintenance Due Date Last Done Comments CT Colonography 1957 Cologuard 1957 FIT 1957 Hepatitis C Screening 1955 Sodium Level 01/24/2017 01/25/2016 Colonoscopy 04/14/2021 04/14/2011 (Perf ormed elsewhere) Colorectal Cancer Screening 04/14/2021 Depression Screening (Annual PHQ-2) 04/14/2023 Fall Risk Screen (Annual) 04/14/2023 COVID-19 Vaccine ( season) 2023 02/20/2023, 03/05/2022, 08/07/2021, Additional history exists Potassium Level 05/30/2024 05/30/2023, 11/12, 07/19/2022, Additional history exists Creatinine Level (Kidney Function Test) 07/22/2024 07/23/2023, 05/30/2023, 03/26/2023, Additional history exists Office Visit for Blood Pressure Check / Re-check 08/10/2024 08/11/2023 Fasting Glucose for Diabetes Screening 07/19/2025 07/19/2022, 01/08/2021, 12/25/2020, Additional history exists Lipid (Cholesterol) Screening 07/20/2027 07/19/2022, 01/25/2016, 04/14/2014 (Performed elsewhere) DTaP,Tdap,and Td Vaccines (3 - Td or Tdap) 12/23/2032 12/23/2022, 04/17/2012, 07/12/2003, Additional history exists Zoster Vaccines Completed 06/16/2018, 04/09/2018 Pneumococcal vaccine (65+ years) Completed 12/03/2022, 04/22/2013 Influenza Vaccine Completed 02/20/2023, , 01/17/2021, Additional history exists RSV vaccine - (32-36 weeks) or 60+ years Completed 02/20/2023 HPV Vaccines Aged Out No longer eligi ble based on patient's age to complete this topic Medical Devices Implanted Type Area Marketing Database Consultant Device Identifier Shelf Expiration Date Model / Serial / Lot Bonewax Implanted:Qty: 1 on 11/24/2019 by Curly Esparza M.D. at [facility] Bone or Tissue Right: Ankle Ethicon 09/12/2023 W31 / N/A / [id number] Conversions-Defa ult Historical Implant Device- 5 Implanted:2014 (Quantity not on file) Cardiac Stent Coronary Description:Device Status Te xt - Cardiac. 2 stents Conversions - Default Historical Implant Device-07/22/2002 Implanted:2002 (Quantity not on file) Cardiac Valve Prosthesis Aorta Description:[facility]y (for bic uspid valve ) MR conditional 3T Device Status Text - CardValve. Scrw St Pthrd Nlck Lang 6.7x85 - [id number] Implanted:Qty: 2 on 11/24/2019 at [facility] Hardware e.g. pins/screws/r ods Right: Ankle Arthrex [id number] / / Clp Hrzn Ti 6 Clp Nirav - [id number] Implanted:Qty: 2 on 05/23/2020 by Eva Alicea M.D. at [facility] Hardware e.g. pins/screws/r ods [employer] [id number] / / Description:Biopsy marker Ocular Lens-04/14/2008 Implanted:2008 (Quantity not on file) Ocular Lens Bilateral: Eye Vascular Graft 2014 Vascular Graft Aorta Description:Florence Tag Endopro thesis graft places in descending aorta in 2014 at [facility]. 3T Conditional at Normal Normal per MagResourkathryn. Vascular Graft--07/22/2002 Implanted:2002 (Quantity not on file) Vascular Graft Aorta Description:Device Status Te xt - CardValve. Procedures Procedure Name Priority Date/Time Associated Diagnosis Comments CREATININE WITH EGFR, S/P Routine 07/23/2023 9:53 AM CDT Medication Therapy Construction Secretary Not Anticoagulant ALANINE AMINOTRANSFERASE (ALT), S/P Routine 07/23/2023 9:53 AM CDT Medication Therapy Construction Secretary Not Anticoagulant ASPARTATE AMINOTRANSFERASE (AST), S/P Routine 07/23/2023 9:53 AM CDT Medication Therapy Fpc Not Anticoagulant CBC WITH DIFFERENTIAL, B Routine 07/23/2023 9:53 AM CDT Medication Therapy Construction Secretary Not Anticoagulant POTASSIUM, S/P Routine 05/30/2023 10:35 AM SAND HAULER Hodgkin Lymphoma Unspecified Lymph Nodes Of Axilla And Upper Limb (HCC) LACTATE DEHYDROGENASE (LD), S Routine 05/30/2023 10:35 AM SAND HAULER Hodgkin Lymphoma Unspecified Lymph Nodes Of Axilla And Upper Limb (HCC) CREATININE WITH EGFR, S/P Routine 05/30/2023 10:35 AM SAND HAULER Hodgkin Lymphoma Unspecified Lymph Nodes Of Axilla And Upper Limb (HCC) CBC WITH DIFFERENTIAL, B Routine 05/30/2023 10:35 AM SAND HAULER Hodgkin Lymphoma Unspecified Lymph Nodes Of Axilla And Upper Limb (HCC) CALCIUM, TOT, S/P Routine 05/30/2023 10: 35 AM SAND HAULER Hodgkin Lymphoma Unspecified Lymph Nodes Of Axilla And Upper Limb (HCC) BILIRUBIN, TOT, S/P Routine 05/30/2023 1 0:35 AM SAND HAULER Hodgkin Lymphoma Unspecified Lymph Nodes Of Axilla And Upper Limb (HCC) ASPARTATE AMINOTRANSFERASE (AST), S/P Routine 05/30/2023 10:35 AM SAND HAULER Hodgkin Lymphoma Unspecified Lymph Nodes Of Axilla And Upper Limb (HCC) ALKALINE PHOSPHATASE, S/P Routine 05/30/2023 10:35 AM SAND HAULER Hodgkin Lymphoma Unspecified Lymph Nodes Of Axilla And Upper Limb (HCC) LIPID PANEL, S Routine 07/19/2022 10:40 AM CDT Dysfunction Erectile GLUCOSE, FASTING, S/P Routine 07/19/2022 10:39 AM CDT Dysfunction Erectile SODIUM, S/P Routine 01/25/2016 6:04 PM CDT from Last 3 Months or Most Recently Relevant to Health Maintenance Results * CBC with Differential, Blood (07/23/2023 9:53 AM CDT) Only the most recent of2 resultswithin the time period is included. Hemoglobin 14.4 13.2 - 16.6 g/dL 07/23/2023 10:00 AM CDT CNFL Hematocrit 42.1 38.3 - 48.6 % 07/23/2023 10:00 AM CDT CNFL Erythrocytes 4.62 4.35 - 5.65 x10(12)/L 07/23/2023 10:00 AM CDT CNFL MCV 91.1 78.2 - 97.9 fL 07/23/2023 10:00 AM CDT CNFL RBC Distrib Width 14.2 11.8 - 14.5 % 07/23/2023 10:00 AM CDT CNFL Platelet Count 158 135 - 317 x10(9)/L 07/23/2023 10:00 AM CDT CNFL Leukocytes 7.7 3.4 - 9.6 x10(9)/L 07/23/2023 10:00 AM CDT CNFL Neutrophils 6.31 1.56 - 6.45 x10(9)/L 07/23/2023 10:00 AM CDT CNFL Lymphocytes 1.11 0.95 - 3.07 x10(9)/L 07/23/2023 10:00 AM CDT CNFL Monocytes 0.29 0.26 - 0.81 x10(9)/L 07/23/2023 10:00 AM CDT CNFL Eosinophils <0.04 0.03 - 0.48 x10(9)/L 07/23/2023 10:00 AM CDT CNFL Basophils <0.04 0.01 - 0.08 x10(9)/L 07/23/2023 10:00 AM CDT CNFL Blood (Blood, Venous) 07/23/2023 9:53 AM CDT 07/23/2023 9:53 AM CDT Bárbara Soto APRN, C.N.P. LAB BLOOD ADD-ON [facility] [address] [place] [phone], [facility] CNFL [facility] in [address] [address] * ALT (Alanine Aminotransferase) (07/23/2023 9:53 AM CDT) Alanine Aminotransferase (ALT), P 26 7 - 55 U/L 07/23/2023 10:25 AM CDT CNFL Blood (Blood, Venous) 07/23/2023 9:53 AM CDT 07/23/2023 9:53 AM CDT Bindu Sawant APRNN.P. LAB BLOOD ADD-ON Performing Organization Address City/[facility] [place] [address], [place] [address] * AST (Aspartate Aminotransferase) (07/23/2023 9:53 AM CDT) Only the most recent of2 resultswithin the time period is included. Aspartate Aminotransferase (AST), P 25 8 - 48 U/L 07/23/2023 10:25 AM CDT [facility] Blood (Blood, Venous) 07/23/2023 9:53 AM CDT 07/23/2023 9:53 AM CDT Lanny Sawant APRN.N.P. LAB BLOOD ADD-ON Performing Organization Address City/[facility] [place] [address], [place] [address] * Creatinine with Estimated GFR (07/23/2023 9:53 AM CDT) Only the most recent of2 resultswithin the time period is included. Creatinine 1.11 0.74 - 1.35 mg/dL 07/23/2023 10:25 AM CDT CNFL Estimated GFR (eGFR) 73 >=60 mL/min/BSA 07/23/2023 10:25 AM CDT CNFL Comment: Estimated GFR calculated using the 2020 CKD_EPI creatinine equation. Blood (Blood, Venous) 07/23/2023 9:53 AM CDT 07/23/2023 9:53 AM CDT Bárbara Soto APRN C.N.P. LAB BLOOD ADD-ON [facility] [address] [place] [phone], [facility] [place] [facility] in [address] [address] * Potassium (05/30/2023 10:35 AM SAND HAULER) Potassium, S 4.5 3.6 - 5.2 mmol/L 05/30/2023 12:43 PM SAND HAULER DTL Blood (Blood, Venous) 05/30/2023 10:35 AM SAND HAULER 05/30/2023 11:05 AM SAND HAULER Bindu Perez APRNN.P., D.N.P. LAB BLOOD ADD-ON Performing Organization Address City/[facility]/ZIP Co de Phone Number [facility] [address] [place] [address] * Alkaline Phosphatase (05/30/2023 10:35 AM SAND HAULER) Alkaline Phosphatase, S 62 40 - 129 U/L 05/30/2023 12:43 PM SAND HAULER DTL Blood (Blood, Venous) 05/30/2023 10:35 AM SAND HAULER 05/30/2023 11:05 AM SAND HAULER Lanny Perez APRN.N.P., D.N.P. LAB BLOOD ADD-ON Performing Organization Address City/[facility]/ZIP Co de Phone Number [facility] [address] [facility] [address] [place] [address] * (ABNORMAL) LD (Lactate Dehydrogenase) (05/30/2023 10:35 AM SAND HAULER) Lactate Dehydrogenase (LD), S 347(H) 122 - 222 U/L 05/30/2023 12:43 PM SAND HAULER DTL Blood (Blood, Venous) 05/30/2023 10:35 AM SAND HAULER 05/30/2023 11:05 AM SAND HAULER Sole Read APRN C.N.P., D.N.P. LAB BLOOD NON ADD-ON Performing Organization Address City/[facility] [place] [address] * Calcium, Total (05/30/2023 10:35 AM SAND HAULER) Calcium, Total, S 9.1 8.8 - 10.2 mg/dL 05/30/2023 12:43 PM SAND HAULER DT Blood (Blood, Venous) 05/30/2023 10:35 AM SAND HAULER 05/30/2023 11:05 AM SAND HAULER Sole Read APRN, C.N.P., D.N.P. LAB BLOOD ADD-ON Performing Organization Address [facility] [place] [address] * (ABNORMAL) Bilirubin, Total (05/30/2023 10:35 AM SAND HAULER) Bilirubin, Total, S 1.3(H) 0.0 - 1.2 mg/dL 05/30/2023 12:43 PM SAND HAULER DTL Blood (Blood, Venous) 05/30/2023 10:35 AM SAND HAULER 05/30/2023 11:05 AM SAND HAULER Sole Read APRN, C.N.P., D.N.P. LAB BLOOD ADD-ON [facility] [address] [place] [address], [place] [facility] [address] [place] [address] * (ABNORMAL) Lipid Panel (07/19/2022 10:40 AM [...] CDT Ok Padilla M.D. LAB BLOOD ADD-ON [facility] [address] [place] [phone], [facility] in [address] [address] * (ABNORMAL) Glucose, Fasting (07/19/2022 10:39 AM CDT) Glucose, P 109(H) 70 - 100 mg/dL 07/19/2022 11:14 AM CDT [facility] Last Intake 10 hr 07/19/2022 11:01 AM CDT [facility] Comment: REVISED RESULTS ----PREVIOUSLY REPORTED ---- 14, Flagged as: Normal (Reported 07/19/2022 10:46) Blood (Blood, Venous) 07/19/2022 10:39 AM CDT 07/19/2022 10:45 AM CDT Ok Padilla M.D. LAB BLOOD NON ADD- ON Performing Organization Address [facility] Co de Phone Number [facility] [address] [place] [phone], [facility] [facility] Services in [address] [address] * Sodium (01/25/2016 6:04 PM CDT) Sodium, S 142 135 - 145 MMOL/L [facility] 01/25/2016 6:04 PM CDT 01/25/2016 6:04 PM CDT Stephen Cespedes M.D. LAB BLOOD ADD-ON [facility] [address] from Last 3 Months or Most Recently Relevant to Health Maintenance Additional Health Concerns Infection Onset Date Last Indicated Protective Environment 07/19/2022 3 Advance Directives For more information, please contact: [phone] Documents on File Type Date Recorded Patient Senior Database Programmer Expl anation Advance Directives 01/18/2021 11:23 AM Daly Ovalles HCPOA/ADVOCATE/AGENT/R EPRESENTATIVE/SURROGAT E * Full Code (Latest Code Status on File) Date Activated Date Inactivated Comments 09/25/2020 6:56 AM 09/25/2020 3:33 PM Question Answer Comments Full Code: Not Discussed Due to: Not medically appropriate * Full Code Date Activated Date Inactivated Comments 05/23/2020 8:52 AM 05/23/2020 7:56 PM Question Answer Comments Full Code: Not Discussed Due to: Not medically appropriate Healthcare Agents on File Name Relationship Healthcare Agent Relationshi p Communication Daly Ovalles Spouse Health Care Agent Radha Patel Daughter First Alternate Health Care Agent Gil Ovalles Son Second Alternate Health Care Agent Care Teams Supervisor Plastics Relationship Specialty Start Date End Date Elsewhere, Pcp PCP - General Family Medicine 11/27/20
--- OUTSIDE RECORDS SUMMARY | 2023-08-12 08:32 | XMS_ITS | Encounter Summary ---
Author Name Unknown Organization [facility] Address [address] [facility] [place] [address] Phone Care Team Providers Care Talend Etl Developer Name Role Phone Gale Garcia MD Primary Care Provider Encounter Details Date Type Department Care Team (Late st Contact Info) Description 07/10/2023 10:16 AM CDT - 07/10/2023 11:59 PM CDT Hospital Encounter [facility] EEG [address] [place] [address] Diane Murray MD [address] [place], [place] [id number] 1, Eeg - Outpatient Discharge Disposition: Discharged to home or self care (routine discharge) Social History Tobacco Use Types Packs/Day Years Used Date Smoking Tobacco: Never Assessed PHQ-2 Answer Date Recorded PHQ-2 Subtotal 3 03/12/2023 Sex and Gender Information Value Date Recorded Sex Assigned at Not on file Gender Identity Not on file Sexual Orientation Not on file documented as of this encounter Medications at Time of Discharge Medication Sig Dispensed Refills Start Date End Date doxycycline 100 mg oral tablet Take 1 tablet (100 mg) by mouth twice daily. 09/27/2022 enoxaparin (LOVENOX) 100 mg/mL Injection SOSY 2 (two) times a day. 03/17/2023 golimumab (SIMPONI) 50 mg/0.5 mL subcutaneous auto injector Inject 0.5 mL (50 mg) subcutaneously every month. 03/31/2023 labetalol (TRANDATE) 100 mg oral TABS Take 1 tablet (100 mg) by mouth. 03/14/2023 labetalol (TRANDATE) 200 mg oral tablet Take 2 tablets (400 mg) by mouth 3 times daily. loperamide (IMODIUM A-D) 2 mg oral tablet Take 1 mg by mouth. predniSONE 5 mg oral tablet SMARTSIG:By Mouth 09/03/2022 triamcinolone acetonide (TRIDERM) 0.5% externally cream SMARTSIG:Topical Twice Daily 11/07/2022 venlafaxine (EFFEXOR XR) 150 mg oral capsule 24 H Take 1 capsule (150 mg) by mouth daily. 02/25/2023 venlafaxine (EFFEXOR XR) 75 mg oral capsule 24 H Take 1 capsule (75 mg) by mouth daily. 02/25/2023 warfarin (COUMADIN) 5 mg oral tablet SMARTSIG:By Mouth 03/28/2023 methoTREXate (RHEUMATREX) 2.5 mg oral tablet SMARTSI Tablet(s) By Mouth Once a Week 09/18/2022 methotrexate 50 mg/2 mL Injection SMARTSI.7 Milliliter(s) SUB-Q Once a Week 03/27/2023 mirtazapine (REMERON) 7.5 mg oral TABS Take 1 tablet (7.5 mg) by mouth. 01/16/2023 atorvastatin (LIPITOR) 40 mg oral TABS Take 1 tablet (40 mg) by mouth daily. 02/06/2023 desvenlafaxine ER (PRISTIQ) 50 mg oral tablet 24 HR Take 1 tablet (50 mg) by mouth daily. 03/04/2023 folic acid (FOLIC ACID) 1 mg oral tablet Take 2 tablets (2 mg) by mouth daily. furosemide (LASIX) 20 mg oral TABS Take 1 tablet (20 mg) by mouth daily. 12/23/2022 mirtazapine (REMERON) 7.5 mg oral TABS Take 1 tablet (7.5 mg) by mouth at bedtime. 01/16/2023 methoTREXate 25 mg/mL Intralesiona solution intralesional 0.7 mL (17.5 mg) by Intralesional route every week. NaCl 0.9% solution 81.6 mL with golimumab 50 MG/4ML solution 225 mg IVPB Inject 225 mg intravenously. documented as of this encounter Procedure Notes * Beatriz Jovel RPSGT - 07/10/2023 10:30 AM CDTProcedure(s): EEG 3Hr routine EEG completed at 14:06, pending results and interpretation. * Marizol Lainez MD - 07/10/2023 10:30 AM CDTProcedure(s): EEG Routine EEG Report - [facility] Patient Name: Get Ovalles : 1955 Date of Study: 07/10/2023 Study Duration: 3 hours and 2 minutes (from 1104 to 1406) Ordering Provider: Diane Murray MD Clinical History: Per chart review, the patient is a 68-year-old man with a reported medical history of an abdominal aortic aneurysm (AAA), aortic valve replacement (AVR) with a mechanical valve, obstructive sleep apnea (SARITA), a prior traumatic subdural hematoma (SDH) now status post craniotomy, and a left middle cerebral artery (M2) thrombus. He was recently evaluated for expressive aphasia whenhe was found to have a partially occlusive left M2 thrombus. He continued to have intermittent aphasia for which an EEG was ordered. This routine EEG study was performed to assess the background and to evaluate for electrographic seizures. Anti-seizure medications: None Study Indication: Evaluate for seizures Technical Summary: Video digital EEG was performed by applying scalp electrodes utilizing the standard 10-20 system, presented in various montages of 18 EEG channels, and 1 channel of EKG. Description of the EEG: The background was continuous, mildly asymmetric, well- organized, and reactive to stimulation. The awake cerebral activity consisted of a posterior dominant rhythm of 9-10 Hz,which attenuated symmetrically to eye- opening and alerting. Low voltage fast was present with a frontal-central maximum. There was asymmetry of faster frequencies in the alpha and beta rhythm observed in the left parasagittal quadrant, maximally involving the left centroparietal region with higher amplitude and sharper morphology seen on the left and maximal at electrodes P3>C3. Irregular, sharply-contoured, low-voltage, fast activity in the alpha and beta range was also seen in the left parasagittal and posterior derivations and maximal at electrodes P3-C3 likely representing a breach rhythm. Intermittent irregular higher-amplitude alpha-theta slowing was seen in the same distribution. Theta and alpha rhythms remained present during drowsiness. During N1 and N2 sleep, normal sleep transients were noted, with symmetric and well-formed vertex sharp waves, sleep spindles, and K-complexes. Activation Procedures: Photic stimulation with 1-40 Hz flash rates did not activate abnormal potentials. Hyperventilation was not performed. Interictal Abnormalities: Irregular, low to medium-voltage, fast activity in the alpha and beta range were present in the left parasagittal quadrant, and maximal in the left centroparietal region (electrodes P3>C3). This pattern likely represents a breach rhythm. No definite epileptiform discharges were seen. No electrographic seizures are present. 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 Apart from this abnormal finding, periods of wakefulness and light sleep were within the range of normal variation. No definite epileptiform potentials or electrographic seizures were seen. Please do not hesitate to contact me if you have any questions. Marizol Lainez MD Clinical Neurophysiologist [facility] / [facility] documented in this encounter Plan of Treatment Not on file documented as of this encounter Procedures Procedure Name Priority Date/Time Associated Diagnosis Comments EEG Routine 07/10/2023 10:16 AM CDT Subdural hematoma (CMS) documented in this encounter Visit Diagnoses Diagnosis Subdural hematoma (CMS) Subdural hemorrhage documented in this encounter Additional Health Concerns Assessment Noted Time PHQ-9 Depression Total Score: 9 03/12/20 1:30 PM CLINICAL LABORATORY DIRECTOR PHQ-2 Depression Total Score: 3 03/12/20 1:30 PM CLINICAL LABORATORY DIRECTOR documented as of this encounter Care Teams Talend Etl Developer Relationship Specialty Start Date End Date Gale Garcia MD [address] [place] [address] PCP - General Internal Medicine 03/10/23 documented as of this encounter
--- OUTSIDE RECORDS SUMMARY | 2023-08-12 08:32 | XMS_ITS | Clinical Summary ---
Author Name Unknown Organization [facility] Address [address] [address] Phone Care Team Providers Care Continuous Drier Operator Name Role Phone Gale Garcia MD Primary Care Provider [phone] Allergies No known active allergies Medications Medication [...] may be opened and sprinkled on food. 04/21/2013 Active atorvaSTATin (LIPITOR) 20 MG tablet [...] Date Diagnosed Date Chronic Pain Syndrome - [facility] Agreement for Opioid Treatment - 10/21/2013 10/21/2013 Overview: Pain Dx: psoriatic arthritis Preferred Pharmacy: [facility] Comments: Opioid contract renewed 10/21/13 mgr. [...] 04/21/2013 Colonoscopy 2007 polyps. 03/25 normal. Next 2017 Prosthetic Aortic Valve/ Ascending Aortic Graft 07/13/2004 Overview: [facility] AVR and ascending aortic graft on 07/14. On lifelong anticoagulation. 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 Other and unspecified hyperlipidemia 02/17/02 Unspecified sleep apnea 02/17/[address] [facility] 09/29/97. Tolerated nasal CPAP poorly. Observe. Acute ethmoidal sinusitis 02/17/02 Rx [place] xicillin. Intermittent sinusitis. Aortic valve disorders 09/16/01 [...] Comments Blood Pressure 180/113 03/02/2015 3:37 PM CREATIVE WRITING PROFESSOR Pulse 94 03/02/2015 3:37 PM CREATIVE WRITING PROFESSOR Temperature 36.5 ??C (97.7 ??F) 03/02/2015 3:45 PM CS T Respiratory Rate 34 03/02/2015 3:37 PM CREATIVE WRITING PROFESSOR Oxygen Saturation 97% 03/02/2015 3:31 PM CREATIVE WRITING PROFESSOR Inhaled Oxygen Concentration - - Weight 99.8 kg (220 lb) 03/02/2015 1:36 PM CREATIVE WRITING PROFESSOR Height 177.8 cm (5' 10) 03/02/2015 1:36 PM CREATIVE WRITING PROFESSOR Body Mass Index 31.57 03/02/2015 1:36 PM CREATIVE WRITING PROFESSOR Plan of Treatment Health Maintenance Due Date [...] this topic Medical Devices Implanted Type Area Pediatric Neurologist Device Identifier Shelf Expiration Date Model / Serial / Lot Sn60wf 17.5blue Filter Sn60wf.175 - [id number] Implanted:Qty: 1 on 12/18/2011 by Tuan Adame MD at [facility] Right: Eye SAMY SN60WF. 175 / [id number] / Sn60wf 17.5blue Filter Sn60wf.175 - [id number] Implanted:Qty: 1 on 01/15/2012 by Tuan Adame MD at [facility] SAYM 06/11/2016 SN60WF. 175 / [id number] 3 / Pushlock Biocomposite Sp 2.9mm Ar-1923bc - [id number] Implanted:Qty: 2 on 06/03/2012 at [facility] Left: Shoulder ARTHREX 04/02/2014 AR-1923BC / NA / [id number] 4.75 Biocomp Swivel Lock Hannibal Ar-2324bcc - [id number] Implanted:Qty: 2 on 06/03/2012 at [facility] Left: Shoulder ARTHREX 04/02/2014 AR-2324BCC / NA / [id number] Pushlock Biocomposite Sp 2.9mm Ar-1923bc - [id number] Implanted:Qty: 1 on 06/03/2012 at [facility] Left: Shoulder ARTHREX 05/03/2014 AR-1923BC / NA / [id number] 4.75 Biocomp Swivel Lock Hannibal Ar-2324bcc - [id number] Implanted:Qty: 1 on 06/03/2012 at [facility] Left: Shoulder ARTHREX 05/03/2014 AR-2324BCC / NA / [id number] 4.75 Biocomp Swivel Lock Hannibal Ar-2324bcc - [id number] Implanted:Qty: 1 on 06/03/2012 at [facility] Left: Shoulder ARTHREX 05/03/2014 AR-2324BCC / NA / [id number] Advance Directives For more information, please contact: [phone] * No Code Status (Latest Code Status on File) Date Activated Date Inactivated Comments 09/21/2002 5:32 PM 09/21/2002 5:32 PM Care Teams Continuous Drier Operator Relationship Specialty Start Date End Date Gale Garcia MD [facility] [address] [place] [address] PCP - General Internal Medicine 03/02/15
--- OUTSIDE RECORDS SUMMARY | 2023-08-12 08:32 | XMS_ITS | Encounter Summary ---
Author Name Unknown Organization [facility] Address [address] [address] Phone Care Team Providers Care Entry Level Software Engineer Name Role Phone Jose Fountain MD Primary Care Provider [phone] Elsewhere, Pcp Primary Care Provider Gale Sanchez MD Primary Care Provider [phone]- [phone] Encounter Details Date Type Department Care Team (Late st Contact Info) Description 06/15/2012 Telephone Call [facility] SURGICAL [address] [place] [address] Usman Vo MD [address] [place] [address] Social History Tobacco Use Types [...] as of this encounter Progress Notes * Usman Vo MD - 06/16/2012 8:18 AM CST [facility] Patient Name: RIC OVALLES Date of Service: 06/15/2012 : 1955 Age: 57Y Sex: M DC Site MRN: Patient Loc/Room #: / Provider: Usman Vo MD, Orthopaedics TELEPHONE CALL SITE: NA Phone call to Mr. Ovalles ([phone]). I spoke with Ric specifically about his [...] level of pain relief. Usman Vo MD [facility] Orthopaedics cc: Jose Fountain MD /DAVE Job ID: [id number] /[id number] Document ID: [id number] documented in this encounter Plan of Treatment Not on file documented as of this encounter Visit Diagnoses Not on filedocumented in this encounter Care Teams Entry Level Software Engineer Relationship Specialty Start Date End Date Jose Fountain MD PCP - General Internal Medicine 10/11/11 11/01/14 Elsewhere, Pcp PCP - General 11/02/14 03/01/15 Gale Garcia MD [address] [address] PCP - General Internal Medicine 03/02/15 documented as of this encounter
--- OUTSIDE RECORDS SUMMARY | 2023-08-12 08:32 | XMS_ITS | Encounter Summary ---
Author Name Unknown Organization [facility] Address [address] [place] [address] Phone Care Team Providers Care Salesperson Sewing Machines Name Role Phone Gale Garcia MD Primary Care Provider [phone] Encounter Details Date Type Department Care Team (Latest Contact Info) Description 07/10/2023 Travel Social History Tobacco Use Types Packs/Day [...] Total Score: 9 03/12/20 23 1:30 PM DIRECTOR CREDIT RISK PHQ-2 Depression Total Score: 3 03/12/20 23 1:30 PM DIRECTOR CREDIT RISK documented as of this encounter Care Teams Salesperson Sewing Machines Relationship Specialty Start Date End Date Gale Garcia MD [address] [place] [address] PCP - General Internal Medicine 03/10/23 documented as of this encounter
--- OUTSIDE RECORDS SUMMARY | 2023-08-12 08:32 | XMS_ITS | Clinical Summary ---
Author Name Unknown Organization [facility] Address [address] [place] [address] Care Team Providers Care Media Senior Recruiter Name Role Phone Gale Garcia MD Primary Care Provider [phone]- [phone] Source Comments You are receiving this document as you are listed as the primary care provider,follow-up provider, or the patient has been referred to you for consultation.This is in compliance with the Medicare and[facility] EHR Incentive Program,which states Providers who transition [...] 7.5mg on --, 5mg on other days Active clonazePAM (KLONOPIN) 0.5 MG tablet Take 0.5 mg by mouth daily as needed for Anxiety. Active labetalol (TRANDATE) 200 MG tablet Take 400 mg by mouth three times a day. Active losartan (COZAAR) 100 MG tablet Take 100 mg by mouth daily. Active ustekinumab (STELARA) 45 MG/0.5ML injection Inject 45 mg subcutaneously [id number]. Active simvastatin (ZOCOR) 10 MG tablet Take 10 mg by mouth daily at bedtime. Active DULoxetine (CYMBALTA) 60 MG capsule Take 60 mg by mouth daily. Active traZODone (DESYREL) 50 MG tablet Take 25 mg by mouth daily at bedtime. Active lansoprazole (PREVACID) 30 MG capsule Take 30 mg by mouth daily. Active cholecalciferol (VITAMIN D3) 1000 UNITS tablet Take 1,000 Units by mouth daily. Active celecoxib (CELEBREX) 200 MG capsule Take 200 mg by mouth two times a day. Active neomycin-polymyxin -dexamethasone 0.1 % eye ointment Apply to both eye lids three times a day. Label for dc 3.5 g 3 08/27/2016 Active acetaminophen (TYLENOL) 325 MG tablet Take 325-650 mg by mouth every 4 hours as needed for Pain. Active Social History Tobacco Use Types Packs/Day [...] (Preventive Services) 1955 PSA Screening Discussion 1955 Adult Preventive Visit 1975 DTaP/Tdap/Td (1 - Tdap) 01/22/1976 Cholesterol 01/22/1992 Zoster/Shingles (1 of 2) 2007 Pneumococcal 65+ Yrs (1 - PCV) 2022 COVID-19 Vaccine ( - 2022-2 4 season) 2022 Influenza (#1) 2022 HepA Aged Out [...] age to complete this topic Care Teams Media Senior Recruiter Relationship Specialty Start Date End Date Gale Garcia MD [address] [place] [address] PCP - General Internal Medicine 08/23/16
--- OUTSIDE RECORDS SUMMARY | 2023-08-12 08:32 | XMS_ITS | Encounter Summary ---
Author Name Unknown Organization [facility] Address [address] [place] [phone] Phone Care Team Providers Care Mold Capper Name Role Phone Gale Garcia MD Primary Care Provider Encounter Details Date Type Department Care Team (Late st Contact Info) Description 04/25/2023 Documentation Only Unspecified Department [place] Unknown, Provider [...] Coronavirus/COVID-19? No / Unsure 04/02/2023 7:34 AM SUPERVISOR COLOR PASTE MIXING documented as of this encounter Plan of Treatment Not on file documented as of this encounter Procedures Procedure Name Priority Date/Time Associated Diagnosis Comments EXTERNAL MED REC-IMAGING 04/27/2023 4:57 PM SUPERVISOR COLOR PASTE MIXING documented in this encounter Results * EXTERNAL MED REC-IMAGING (04/27/2023 4:57 PM SUPERVISOR COLOR PASTE MIXING) Anatomical Region Laterality Modality Other Narrative 04/27/2023 4:57 PM SUPERVISOR COLOR PASTE MIXING Ordered by an unspecified provider. Provider Unknown RAD CT BODY documented in this encounter Visit Diagnoses Not on filedocumented in this encounter Additional Health Concerns Assessment Noted Time PHQ-9 Depression Total Score: 9 03/12/20 1:30 PM SUPERVISOR COLOR PASTE MIXING PHQ-2 Depression Total Score: 3 03/12/20 1:30 PM SUPERVISOR COLOR PASTE MIXING documented as of this encounter Care Teams Mold Capper Relationship Specialty Start Date End Date Gale Garcia MD [address] [place] [address] PCP - General Internal Medicine 03/10/23 documented as of this encounter
--- OUTSIDE RECORDS SUMMARY | 2023-08-12 08:32 | XMS_ITS | Encounter Summary ---
Author Name Unknown Organization [facility] Address [address] [place] [address] Phone Care Team Providers Care Live Ammunition Inspector Name Role Phone Gale Garcia MD Primary Care Provider [phone] Encounter Details Date Type Department Care Team (Late st Contact Info) Description 04/29/2023 Documentation Only Unspecified Department [place] Unknown, Provider [...] Coronavirus/COVID-19? No / Unsure 04/02/2023 7:34 AM CONCESSION STAND ATTENDANT documented as of this encounter Plan of Treatment Not on file documented as of this encounter Procedures Procedure Name Priority Date/Time Associated Diagnosis Comments EXTERNAL MED REC-IMAGING 04/30/2023 8:27 AM CONCESSION STAND ATTENDANT documented in this encounter Results * EXTERNAL MED REC-IMAGING (04/30/2023 8:27 AM CONCESSION STAND ATTENDANT) Anatomical Region Laterality Modality Other Narrative 04/30/2023 8:27 AM CONCESSION STAND ATTENDANT Ordered by an unspecified provider. Provider Unknown RAD CT BODY documented in this encounter Visit Diagnoses Not on filedocumented in this encounter Additional Health Concerns Assessment Noted Time PHQ-9 Depression Total Score: 9 03/12/20 1:30 PM CONCESSION STAND ATTENDANT PHQ-2 Depression Total Score: 3 03/12/20 1:30 PM CONCESSION STAND ATTENDANT documented as of this encounter Care Teams Live Ammunition Inspector Relationship Specialty Start Date End Date Gale Garcia MD [address] [place] [address] PCP - General Internal Medicine 03/10/23 documented as of this encounter
--- OUTSIDE RECORDS SUMMARY | 2023-08-12 08:32 | XMS_ITS | Encounter Summary ---
Author Name Unknown Organization [facility] Address [address] [place] [phone] Phone Care Team Providers Care Stage Rigger Name Role Phone Gale Garcia MD Primary Care Provider Reason for Visit * Reason Comments Neurologic Problem Referral Establish Care * Consult/Test/Treat (Routine) - Closed Specialty Diagnoses / Procedures Referred By Nuvia de leon Referred To Contact Neurology / NEUROLOGY Diagnoses Subdural hematoma (CMS) S/P craniotomy Nazanin Aguirre, PARossana [address] [place] [phone] PATIENT CHOICE Referral ID Status Reason Start Date Expiration Date Visits Re quested Visits Authorized [id number] Closed 03/31/2023 03/31/2024 1 1 Encounter Details Date Type Department Care Team (Late st Contact Info) Description 06/11/2023 10:00 AM CASE REPAIRER Office [facility] [address] [address] Diane Murray MD [address] [place] [address] [phone] Subdural hematoma (CMS) (Primary Dx) Discharge Disposition: [...] on file documented as of this encounter Last Filed Vital Signs Vital Sign Reading Time Taken Comments Blood Pressure 113/70 06/11/2023 10:10 AM CASE REPAIRER Pulse 84 06/11/2023 10:10 AM CASE REPAIRER Temperature - - Respiratory Rate - - Oxygen Saturation - - Inhaled Oxygen Concentration - - Weight 108.9 kg (240 lb) 06/11/2023 10:10 AM CASE REPAIRER Height - - Body Mass Index 35.44 03/05/2023 10:00 PM CASE REPAIRER documented in this encounter Patient Instructions * Patient Instructions* Diane Murray MD - 06/11/2023 10:00 AM CASE REPAIRER Lifestyle modification recommendations: balanced diet and exercise, [...] to information provided (DMV reporting form) and [place] Administrative Rules: https://www.revisor.[place].gov/rules/7410.2500. If you have a breakthrough seizure, and need not go to the ER, then notify neurology clinic promptly and plan on being seen promptly in the clinic. Neurology Clinic number is [phone]. Can stay off of keppra. 5. 3-hour EEG Follow-up in after EEG is completed. Video visit okay REPAIRER documented in this encounter Progress Notes * Diane Murray MD - 06/11/2023 10:00 AM CST [facility] Get Ovalles : 1955 Sex: male Medical Decision Making: This is a 68 yo M with history of AAA, AVR with mechanical valvue, OSWA, traumatic SDH S/p craniotomy and left M2 thrombus. During Nov hospitalization an episode of expressive aphasia during therapy session occurred, and lead to diagnosis of partially occlusive left M2 thrombus. STroke team had recommended that he be switched back to heparin when able (during his hospiatlion), and now he is back on warfarin. After discharge from hospital, he purportedly had hours and days of aphasia. From my review of the chart, I cannot glean any further details to understand what constituted this aphasia, while he was on keppra 1000mg po bid. This sounds too long to be reflecting seizure. He and his cannot give me details about this, they thought that he only had his episode during his hospitalization, and that the keppra, made him short-tempered after the hospitalization. He has self-discontinued keppra with normalization of his mood, and no episodes concerning for stroke-like events or changes/alteration of speech or comprehension. I think that it'd be prudent to get EEG done. And will plan on following up with him after EEG is completed by video visit, as he live far from [facility] clinic. They understand that if epileptogenicity isidentified, then we would strongly suggest resumption of an antiepileptic medication. I discussed that it does not have to be keppra and it could be something else, but with him being on Warfarin, Keppra would be the safest to be on. I discussed that it may be possible for him to resume a lower dose of keppra; and also if needed, we could add Vitamin B6 to possibly prevent the irritability from the keppra. We discussed symptoms of stroke and seizure, which, for him, may be confusing. So any signs of neurological deficits, it would [...] to information provided (DMV reporting form) and [place] Administrative Rules: https://www.revisor.ia.gov/rules/7410.2500. If you have a breakthrough seizure, and need not go to the ER, then notify neurology clinic promptly and plan on being seen promptly in the clinic. Neurology Clinic number is [phone]. Can stay off of keppra. 5. 3-hour EEG Follow-up in after EEG is completed. Video visit okay Return for seizure. History of Present Illness: Cc: Referred by Nazanin Aguirre PA-C HPI: This is a 68 yo M s/p SDH evauation, with histoyr of AAA, AVR with mechanical valve in place, Hodgkin's lymphoma, SARITA, HTN, who was found to have traumatic SDH, now s/p craniotomy. 03/31/23 - [place] [facility] [place]. Aphasia resolved. Referred to neurologist to rule out seizure. On warfarin because of artifical heart valve and stent. Continue keppra 1000mg po bid. Referred toneurology at [facility]. During hospitalization in Feb 2023, he had [...] in 03/19/23, he had a follow-up in [facility] [place], at which time he and his reported that he has aphasia 50% of the time, lasting for several hours at a time, worsening as the day goes on. He was to continue keppra 1000mg po biD. NSG MELANIE was not sure if these were seizures; ad discussed with 2 NSG attendings. Head cT done that day was stable. ROS No seizures Vitals: 06/11/23 1010 BP: 113/70 Pulse: 84 Weight: 108.9 kg (240 lb) Estimated body mass index is 35.44 kg/m?? as calculated from the following: Height as of 03/05/23: 1.753 m (5' 9). Weight as of this encounter: 108.9 kg (240 lb). Physical Exam Vitals reviewed. Constitutional: Appearance: Normal appearance. HENT: Head: Normocephalic. Pulmonary: Effort: Pulmonary effort is normal. Neurological: Mental Status: He is alert. Psychiatric: Mood and Affect: Mood normal. Behavior: Behavior normal. Thought Content: Thought content normal. REPAIRER documented in this encounter Plan of Treatment Not on file documented as of this encounter Visit Diagnoses Diagnosis Subdural hematoma (CMS)- Primary Subdural hemorrhage documented in this encounter Additional Health Concerns Assessment Noted Time PHQ-9 Depression Total Score: 9 03/12/20 1:30 PM CASE REPAIRER PHQ-2 Depression Total Score: 3 03/12/20 1:30 PM CASE REPAIRER documented as of this encounter Care Teams Stage Rigger Relationship Specialty Start Date End Date Gale Garcia MD [address] [place] [address] PCP - General Internal Medicine 03/10/23 documented as of this encounter
--- OUTSIDE RECORDS SUMMARY | 2023-08-12 08:33 | XMS_ITS | Encounter Summary ---
Author Name Unknown Organization [facility] Address [address] [place] [address] Care Team Providers Care Kiln Head House Operator Name Role Phone Elsewhere, Pcp Primary Care Provider Unavailabl e Reason for Referral * Outpatient (Routine) - Authorized Specialty Diagnoses / Procedures Referred By Nuvia de leon Referred To Contact Endocrinology Diagnoses Hypertension Essential Primary Coronary Artery Disease Without Angina Pectoris Sleep Apnea Obesity Body Mass Index 30-39.9 Adult Get Ragland APRN, C.N.P., D.N.P. [address] [place] [phone] [facility] Referral ID Status Reason Start Date Expiration Date V isits Requested Visits Authorized [id number] Authorized 06/18/2023 12/17/2024 1 1 IC UTILITIES SALES REPRESENTATIVE * Medication Prior Authorization - Closed Specialty Diagnoses / Procedures Referred By Nuvia de leon Referred To Contact Get Ragland APRN, C.N.P., D.N.P. [address] [place] [phone] Referral ID Status Reason Start Date Expiration Date Visits Re quested Visits Authorized [id number] Closed 1 1 IC UTILITIES SALES REPRESENTATIVE Reason for Visit * Outpatient (Routine) - Closed Specialty Diagnoses / Procedures Referred By Nuvia de leon Referred To Contact Endocrinology Diagnoses Obesity Body Mass Index 30-39.9 Adult Sleep Apnea Hypertension Essential Primary Get Ragland APRN, C.NMariaa, Jourdan.N.P. [address] [place] [phone] [facility] Referral ID Status Reason Start Date Expiration Date Visits Re quested Visits Authorized [id number] Closed 03/19/2023 03/18/2026 1 1 Encounter Details Date Type Department Care Team (Latest Contact Info) Description 06/18/2023 2:00 PM PUBLIC UTILITIES SALES REPRESENTATIVE Virtual Visit Division of Endocrinology in [place], [place] [address] [place] [phone] Get Ragland APRN, C.N.Nicolle, Jourdan.N.P. [address] [place] [phone] Obesity Body Mass Index 30-39.9 Adult (Primary Dx); Hypertension Essential Primary; Coronary Artery Disease Without Angina Pectoris; Sleep Apnea Social History Tobacco Use Types Packs/Day Years [...] often do you attend chur ch or cheondoism services? Never 07/16/2022 Do you belong to any clubs o r organizations such as jainism groups, unions, fraternal or athletic groups, or [...] and heating? Not hard at all 09/19/2022 [facility] - [...] situation today? I have a [facility] place to live 09/19/2022 Education Answer Date Recorded What is the highest level of school you have completed or the highest degree you have received? Master's degree (e.g., MA, MS, Starla, MEd, [employer], DEBRA) 09/16/2018 Sex and Gender Information Value [...] Concentration - - Weight 109 kg (240 lb) 06/18/2023 2:48 PM PUBLIC UTILITIES SALES REPRESENTATIVE Height 178.6 cm (5' 10.32) 06/18/2023 2:[address] Body Mass Index 34.13 06/18/2023 2:48 PM PUBLIC UTILITIES SALES REPRESENTATIVE documented in this encounter Progress Notes * Get Ragland APRN, C.N.P., D.N.P. - 06/18/2023 2:00 PM CST SUBJECTIVE History of present illness: Get returns today to the [facility] for a follow-up appointment for ongoing evaluation and assistance with weight loss. Today's visit was completed via telephone call from provider's office to patient's home due to the COVID 19 pandemic. Patient consented to this service. Visit abbreviated as patient thought this was a phone visit but was scheduled as an in-person visit. Recent weight trend is as follows: Most recent weight: 06/18/23 109 kg 06/16/23 111 kg 05/30/23 112 kg 04/17/23 110 kg 04/01/23 107 kg Obesity related comorbidities include Obstructive Sleep Apnea, Hypertension Current medications for weight management: None Previous medications used for weight management: Wegovy was prescribed but not started due to cost Current dietary habits Not eating after 6PM. Eating more salads, meats, veggies. Portions are maybe about the same as before. Current physical activity: Feet and ankles have been bad recently from a pain perspective. Pertinent review of systems otherwise grossly negative. The following portions of the patient's history were reviewed and updated as appropriate: visit questionnaire, allergies, current medications, family history, medical history, social history, surgical history, and problem list. OBJECTIVE VITAL SIGNS There were no vitals filed for this visit. ASSESSMENT / PLAN #1 Hypertension Essential Primary #2 Coronary Artery Disease Without Angina Pectoris #3 Sleep Apnea #4 Obesity Body Mass Index 30-39.9 Adult Other orders - Endocrinology office visit (clinic) - tirzepatide (Zepbound) 2.5 mg/0.5 mL injection; Inject 2.5 mg under the skin every 7 (seven) days., Starting Fri06/18/2023, Normal - tirzepatide (Zepbound) 5 mg/0.5 mL injection; Inject 5 mg under the skin every 7 (seven) days., Starting Fri06/18/2023, Normal - tirzepatide (Zepbound) 7.5 mg/0.5 mL injection; Inject 7.5 mg under the skin every 7 (seven) days., Starting Fri06/18/2023, Normal - tirzepatide (Zepbound) 10 mg/0.5 mL injection; Inject 10 mg under the skin every 7 (seven) days.,Starting Fri06/18/2023, Normal - Endocrinology office visit (clinic); Future; Expected date: 09/18/2023 Medication management: At this time, he would like to attempt tirzepatide. This medication works by decreasing gastric emptying [...] below: Week 1 through week 4 : 2.5 mg once weekly. Week 5 through week 8: 5 mg once weekly. Week 9 through week 12: 7.5 mg once weekly. Week 13 through week 16: 10 mg once weekly. Week 17 through week 20: 12.5 mg once weekly Week 20 and thereafter (maintenance dosage): 15 mg once weekly Follow up: Patient to follow up in 3 months with myself. WEIGHT LOSS MEDICATION INSTRUCTIONS: NATIONWIDE GLP1 SHORTAGE: There is a shortage of GLP1 medications. If he is unable to find one, OK to change to alternate GLP-1 injectable medication. If he would like to switch to oral agents, we will address this at his follow up appointment, or emilie reschedule to an earlier available appointment with our department to address. Ozempic, Mounjaro, Trulicity, Victoza, Byetta, and Rybelsus are not FDA approved for weight loss. SYMPTOMS: For patients taking medications for weight loss, if the patient cannot tolerate the medication due to side effects including gastrointestinal, mood, or other side effects, they can stop the medication. Medications with TOPIRAMATE or WELLBUTRIN can be taken either as 1/2 dose every day for 1 week, andthen stop, or every other day for 1 week and then stop. CHANGING MEDICATIONS: If the patient would like to start a new medication, restart an old medication, or change to a different medication, please schedule the patient for first available follow up appointment, unless noted in the plan that the patient is OK to start a medication at this time. The patient can otherwise wait until their regularly scheduled follow up appointment. MEDICATION COST: Weight loss medications are often not covered by insurance companies. For issues with cost of weight loss medications, patients should continue to look at Their insurance company to check coverage The medication's historical guide website for decreased copayment coupons, Different pharmacies for rodriguez comparison. I personally spent a total of 22 minutes in yjo-yusi-kv-face time performing review of the medical record, care coordination, documentation, and discussion with the patient as described above. IC UTILITIES SALES REPRESENTATIVE documented in this encounter Plan of Treatment Upcoming Encounters Date Type Department Care Team (Latest Contact Info) Description 09/10/2023 12:30 PM CDT Appointment Department of Cardiovascular Diseases in [address] [phone] Ok Padilla M.D. [address] [place] [phone] 09/11/2023 11:45 AM CDT Office Visit Department of Cardiovascular Diseases in [address] [phone] Ok Padilla M.D. [address] [place] [phone] Discharge Disposition: Home or Self Care 09/17/2023 8:15 AM CDT Clinical Communication Virtual Review in [address] [phone] 09/18/2023 10:00 AM CDT Appointment Department of Laboratory Medicine and Pathology, [facility] in [address] [phone] Bárbara Soto APRN, C.N.P. [address] [place] [phone] 09/18/2023 2:00 PM CDT Office Visit Division of Rheumatology in [address] [phone] Bárbara Soto APRN, C.N.P. [address] [place] [phone] 10/02/2023 10:00 AM CDT Virtual Visit Division of Endocrinology in [address] [phone] Get Ragland APRN, C.N.P., D.N.P. [address] [place] [phone] Scheduled Referrals Name Type Priority Associated Diagnoses Order Schedule Endocrinology office visit (clinic) Outpatient Referral Routine Hypertension Essential Primary Coronary Artery Disease Without Angina Pectoris Sleep Apnea Obesity Body Mass Index 30-39.9 Adult Expected: 09/18/2023 (Approximate), Expires: 09/17/2024 documented as of this encounter Visit Diagnoses Diagnosis Obesity Body Mass Index 30-39.9 Adult- Primary Hypertension Essential Primary Coronary Artery Disease Without Angina Pectoris Sleep Apnea documented in this encounter Additional Health Concerns Infection Onset Date Last Indicated Resolved Time Protective Environment 07/19/2022 07/19/2022 Assessment Noted Time PHQ-9 Depression Total Score: 0 01/01/20 16 12:53 PM CDT documented as of this encounter Care Teams Kiln Head House Operator Relationship Specialty Start Date End Date Elsewhere, Pcp PCP - General Family Medicine 11/27/20 documented as of this encounter
--- OUTSIDE RECORDS SUMMARY | 2023-08-12 08:33 | XMS_ITS | Encounter Summary ---
Author Name Unknown Organization [facility] Address [address] [place] [address] Care Team Providers Care Wet Washer Machine Name Role Phone Elsewhere, Pcp Primary Care Provider Unavailabl e Reason for Visit * Reason Comments Med Refill Encounter Details Date Type Department Care Team (Late st Contact Info) Description 06/19/2023 Refill Division of Rheumatology in [place], [place] [address] [place] [phone] Bárbara Soto, JASON, C.N.P. [address] [place] [phone] Med Refill Social History Tobacco Use Types [...] often do you attend chur ch or mu-ism services? Never 07/16/2022 Do you belong to any clubs o r organizations such as spiritism groups, unions, fraternal or athletic groups, or [...] hard at all 09/19/2022 [facility] - Occupational Stress Questionnaire Answer [...] your living situation today? I have a [facility] place to live 09/19/2022 Education Answer Date Recorded What is the highest level of school you have completed or the highest degree you have received? Master's degree (e.g., MA, MS, Starla, MEd, TRUCK TECHNICIAN, DEBRA) 09/16/2018 Sex and Gender Information Value Date Recorded Sex Assigned at Male 10/08/2017 8:25 AM CDT Gender Identity Male 10/08/2017 8:25 AM CDT Sexual Orientation Straight 10/08/2017 8: 25 AM CDT documented as of this encounter Miscellaneous Notes * Telephone Encounter - Camila Lau I. RRebeccaNRebecca - 06/24/2023 10:28 AM CDT Prescription renewal request for methotrexate received from pharmacy. HISTORY OF PRESENT ILLNESS Last Rheum / VASC visit: 05/18/23 with Bárbara Soto APRN, CNP Future office visit: ordered, not yet scheduled Last monitoring labs: 05/30/23: results within parameters Prescription request matches current plan of care. Prescription request matches a current prescription in the Medication List. Exclusion criteria: None (If an alert appeared, it was determined to be an approved exception) ASSESSMENT/PLAN Prescription request renewed per nursing protocol. documented in this encounter Plan of Treatment Upcoming Encounters Date Type Department Care Team (Latest Contact Info) Description 09/10/2023 12:30 PM CDT Appointment Department of Cardiovascular Diseases in [address] [phone] Ok Padilla M.D. [address] [place] [phone] 09/11/2023 11:45 AM CDT Office Visit Department of Cardiovascular Diseases in [address] [phone] Ok Padilla M.D. [address] [place] [phone] Discharge Disposition: Home or Self Care 09/17/2023 8:15 AM CDT Clinical Communication Virtual Review in [place], [place] [address] [place] [phone] 09/18/2023 10:00 AM CDT Appointment Department of Laboratory Medicine and Pathology, [facility] in [address] [phone] Bárbara Soto APRN, C.N.P. [address] [place] [phone] 09/18/2023 2:00 PM CDT Office Visit Division of Rheumatology in [place], [place] [address] [place] [phone] Bárbara Soto APRN, C.N.P. [address] [place] [phone] 10/02/2023 10:00 AM CDT Virtual Visit Division of Endocrinology in [place], [place] [address] [place] [phone] Get Ragland APRN, C.N.P., D.N.P. [address] [place] [phone] documented as of this encounter Visit Diagnoses Diagnosis Arthritis Psoriatic (HCC) documented in this encounter Additional Health Concerns Infection Onset Date Last Indicated Resolved Time Protective Environment 07/19/2022 07/19/2022 Assessment Noted Time PHQ-9 Depression Total Score: 0 01/01/20 16 12:53 PM CDT documented as of this encounter Care Teams Wet Washer Machine Relationship Specialty Start Date End Date Elsewhere, Pcp PCP - General Family Medicine 11/27/20 documented as of this encounter
--- OUTSIDE RECORDS SUMMARY | 2023-08-12 08:33 | XMS_ITS | Encounter Summary ---
Author Name Unknown Organization [facility] Address [address] [place] [address] Care Team Providers Care Radio Board Operator Announcer Name Role Phone Elsewhere, Pcp Primary Care Provider Unavailabl e Reason for Visit * Reason Comments Med Change Request Encounter Details Date Type Department Care Team (Late st Contact Info) Description 06/18/2023 Refill Division of Endocrinology in [place], [place] [address] [place] [phone] Get Ragland APRN, C.N.P., D.N.P. [address] [place] [phone] Med Change Request Social History Tobacco Use Types Packs/Day Years [...] How often do you attend chur or zoroastrian services? Never 07/16/2022 Do you belong to any clubs o r organizations such as mandaen groups, unions, fraternal or athletic groups, or [...] and heating? Not hard at all 09/19/2022 [facility] Occupat ionin Health - Occupational Stress Questionnaire Answer Date [...] your living situation today? I have a [facility] place to live 09/19/2022 Education Answer Date Recorded What is the highest level of school you have completed or the highest degree you have received? Master's degree (e.g., MA, MS, Starla, MEd, MUSEUM SERVICE SCHEDULER, DEBRA) 09/16/2018 Sex and Gender Information Value Date Recorded Sex Assigned at Male 10/08/2017 8:25 AM CDT Gender Identity Male 10/08/2017 8:25 AM CDT Sexual Orientation Straight 10/08/2017 8: 25 AM CDT documented as of this encounter Plan of Treatment Upcoming Encounters Date Type Department Care Team (Latest Contact Info) Description 09/10/2023 12:30 PM CDT Appointment Department of Cardiovascular Diseases [place] [address] [place] [phone] Ok Padilla M.D. [address] [place] [phone] 09/11/2023 11:45 AM CDT Office Visit Department of Cardiovascular Diseases in [place] [address] [place] [phone] Ok Padilla M.D. [address] [place] [phone] Discharge Disposition: Home or Self Care 09/17/2023 8:15 AM CDT Clinical Communication Virtual Review in [place], [place] [address] [place] [phone] 09/18/2023 10:00 AM CDT Appointment Department of Laboratory Medicine and Pathology, [facility] in [place], [place] [address] [place] [phone] Bárbara Soto APRN, C.N.P. [address] [place] [phone] 09/18/2023 2:00 PM CDT Office Visit Division of Rheumatology in [place], [place] [address] [place] [phone] Bárbara Soto APRN, C.N.P. [address] [place] [phone] 10/02/2023 10:00 AM CDT Virtual Visit Division of Endocrinology in [place], [place] [address] [place] [phone] Get Ragland APRN, C.N.P., D.N.P. [address] [place] [phone] documented as of this encounter Visit Diagnoses Not on filedocumented in this encounter Additional Health Concerns Infection Onset Date Last Indicated Resolved Time Protective Environment 07/19/2022 07/19/2022 Assessment Noted Time PHQ-9 Depression Total Score: 0 01/01/20 16 12:53 PM CDT documented as of this encounter Care Teams Radio Board Operator Announcer Relationship Specialty Start Date End Date Elsewhere, Pcp PCP - General Family Medicine 11/27/20 documented as of this encounter
--- OUTSIDE RECORDS SUMMARY | 2023-08-12 08:33 | XMS_ITS | Encounter Summary ---
Author Name Unknown Organization [facility] Address [address] [place] [address] Care Team Providers Care Master Ocean Name Role Phone Elsewhere, Pcp Primary Care Provider Unavailabl e Reason for Visit * Reason Comments Outpatient Infusion simponi * Episode Based Medications (Routine) - Authorized Specialty Diagnoses / Procedures Referred By Contac t Referred To Contact Diagnoses Arthritis Psoriatic (HCC) Bárbara Soto APRN, C.N.P. [address] [place] [phone] Rst Rhu Sheridan [address] [place] [phone] Referral ID Status Reason Start Date Expiration Date V isits Requested Visits Authorized [id number] Authorized 11/14/2022 11/13/2024 99 99 Encounter Details Date Type Department Care Team (Late st Contact Info) Description 08/11/2023 11:00 AM CDT Infusion Department of Infusion Therapy in [address] [phone] Bárbara Soto APRN, C.N.P. [address] [place] [phone] Arthritis Psoriatic (HCC) (Primary Dx) Social History [...] any clubs o r organizations such as restorationism groups, unions, fraternal or athletic groups, or [...] and heating? Not hard at all 09/19/2022 [facility] [place] of Occupat ional Health - Occupational Stress [...] living situation today? I have a [facility] place to live 09/19/2022 Education Answer Date Recorded What is the highest level of school you have completed or the highest degree you have received? Master's degree (e.g., MA, MS, Starla, MEd, GAS SINGER, DEBRA) 09/16/2018 Sex and Gender Information Value [...] oz) 08/11/2023 10:59 A M CDT Height - - Body Mass Index 34.47 06/18/2023 2:48 PM EXTENSION SERVICE SPECIALIST IN CHARGE documented in this encounter Plan of Treatment Upcoming Encounters Date Type Department Care Team (Latest Contact Info) Description 09/10/2023 12:30 PM CDT Appointment Department of Cardiovascular Diseases in [address] [phone] Ok Padilla M.D. [address] [place] [phone] 09/11/2023 11:45 AM CDT Office Visit Department of Cardiovascular Diseases in [address] [phone] Ok Padilla M.D. [address] [place] [phone] Discharge Disposition: Home or Self Care 09/17/2023 8:15 AM CDT Clinical Communication Virtual Review in [place], [place] [address] [place] [phone] 09/18/2023 10:00 AM CDT Appointment Department of Laboratory Medicine and Pathology, [facility], in [place], [place] [address] [place] [phone] Bárbara Soto, TAX COLLECTION COORDINATOR, C.N.P. [address] [place] [phone] 09/18/2023 2:00 PM CDT Office Visit Division of Rheumatology in [place], [place] [address] [place] [phone] Bárbara Soto APRN, C.N.P. [address] [place] [phone] 10/02/2023 10:00 AM CDT Virtual Visit Division of Endocrinology in [place], [place] [address] [place] [phone] Get Ragland APRN, C.N.P., D.N.P. [address] [place] [phone] documented as of this encounter Visit Diagnoses [...] mL/hr, Administer over 30 Minutes, Once, On Fri08/11/23 at 1130, For 1 dose, Do NOT shake. Use in-line filter. Do NOT refrigerate. New Bag 08/11/2023 11:39 AM CDT 218.75 mg 200 mL/hr sodium chloride 0.9 % injection 10 mL 10 mL, intravenous, As needed, line care, Starting on Fri08/11/23 at 1102 Given 08/11/2023 12:17 PM CDT 10 mL Given 08/11/2023 11:14 AM CDT 10 mL documented in this encounter Additional Health Concerns Infection Onset Date Last Indicated Resolved Time Protective Environment 07/19/2022 07/19/2022 Assessment Noted Time PHQ-9 Depression Total Score: 0 01/01/20 16 12:53 PM CDT documented as of this encounter Care Teams Master Ocean Relationship Specialty Start Date End Date Elsewhere, Pcp PCP - General Family Medicine 11/27/20 documented as of this encounter
--- OUTSIDE RECORDS SUMMARY | 2023-08-12 08:33 | XMS_ITS | Referral Summary ---
Author Name Unknown Organization [facility] Address [address] [place] [address] Care Team Providers Care Music Manager Name Role Phone Elsewhere, Pcp Primary Care Provider Unavailabl e Source Comments Patient records contain information from all sites at [facility]. For routine questions regarding patient records, call [phone] during business hours, M-F 8:00 AM - 5:00 PM Central Time. Record requests for emergency care only can be directed to [phone] at any time.[facility] Encounters Date Type Department Care Team Description 08/11/2023 11:00 AM CDT Infusion Department of Infusion Therapy in [address] [phone] Bárbara Soto APRN, C.N.P. Arthritis Psoriatic (HCC) (Primary Dx) 08/08/2023 Refill Division of Rheumatology in [place], [place] [address] [place] [phone] Bárbara Soto APRN, C.N.P. Med Refill 07/23/2023 9:49 AM CDT - 07/23/2023 11:59 PM CDT Hospital Encounter Department of Laboratory Medicine in [address] [phone] Bárbara Soto APRN, C.N.P. Medication Therapy Senior Living Not Anticoagulant Discharge Disposition: Home or Self Care 07/08/2023 Clinical Communication Division of Endocrinology in [address] [phone] Get Ragland APRN C.N.PRebecca, D.N.P. Rx Denial (Zepbound) 06/26/2023 Clinical Communication Division of Rheumatology in [address] [phone] Trang Montalvo R.N. 06/26/2023 Refill Department of Cardiovascular Diseases in [address] [phone] Ok Padilla M.D. Med Refill 06/23/2023 Orders Only Division of Rheumatology in [address] [phone] Bárbara Soto APRN, C.N.P. 06/19/2023 Refill Division of Rheumatology in [address] [phone] Bárbara Soto APRN, C.N.P. Med Refill 06/18/2023 Refill Division of Endocrinology in [address] [phone] Get Ragland APRN, C.N.PRebecca, D.N.P. Med Change Request 06/18/2023 2:00 PM TELEPHONE SEX WORKER Virtual Visit Division of Endocrinology in [address] [phone] Get Ragland APRN C.N.P., D.N.P. 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 Arthritis Psoriatic (HCC) (Primary Dx) 06/12/2023 Clinical Communication Department of Infusion Therapy in [place], [place] [address] [place] [address] Ashleigh Zuluaga R.N. 05/30/2023 10:20 AM TELEPHONE SEX WORKER - 05/30/2023 11:59 PM TELEPHONE SEX WORKER Hospital Encounter Department of Laboratory Medicine and Pathology, [facility], in [place], [place] [address] [place] [address] Sole Read APRN, C.N.PRebecca, D.N.P. Hodgkin Lymphoma Unspecified Lymph Nodes Of Axilla And Upper Limb (HCC) Discharge Disposition: Home or Self Care 05/30/2023 1:00 PM TELEPHONE SEX WORKER Office Visit Division of Hematology in [place], [place] [address] [place] [phone] Sole Read APRN, C.N.P., D.N.P. Hodgkin Lymphoma Unspecified Lymph Nodes Of Axilla And Upper Limb (HCC) (Primary Dx) 05/14/2023 Refill Division of Rheumatology in [place], [place] [address] [place] [phone] Bárbara Soto APRN, C.N.P. Med Refill from Last 3 Months Allergies No known [...] by mouth daily. 03/04/2023 Active RX WELCOME INPEST-XKULFXVPC-F P ONLY Welcome packet 1 each 04/10/2023 Active RX SIMPONI PATIENT KIT-OP ONLY SIMPONI PATIENT KIT 1 each 04/10/2023 Active alcohol swabs (Alcohol Prep) pads, medicated As directed 100 each 04/10/2023 Active RX 1/2 Gallon Sharps Container Sharps 1/2 Gallon Sharps Container 1 each 04/10/2023 Active syringe with needle (BD Tuberculin Syringe) 1 mL 27 x 1/2 syringeIndications :Arthritis Psoriatic (HCC) Inject 1 Syringe [...] Overview: Added automatically from request for surgery [id number] Aneurysm Thoracic Aorta Personal History 018 Pain Wrist Left 10/08/2017 Overview: Added automatically from request for surgery [id number] Dilated Aortic Root 03/04/2016 Hypertension Essential Primary 03/04/2016 Prosthesis Aortic Valve 04/28/2015 Arthritis Psoriatic 05/03/2014 Senior Living (Current) Anticoagulant Treatment 12/2003 Overview: Overview: Updated per 01/12/17 IMO import Pain Thumb Left Coronary Artery Disease Without Angina Pectoris Sleep Apnea Resolved Problems Problem Noted Date Diagnosed Date Resolved Date 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 Shorty AVR and ascending aortic graft on 07/14. On lifelong anticoagulation. Immunizations Name Administration Dates Next Due Influenza [...] (6 months and older)(PF) 01/17/2021,02/25/2020,03/08/2019,2017,01/27/2017,01/12/2016,01/25/2015,1 ,01/29/2013,01/09/2012, 010,01/24/2009,02/16/2008,02/19/2006 Social History Tobacco Use Types Packs/Day Years [...] How often do you attend chur or confucianism services? Never 07/16/2022 Do you belong to any clubs o r organizations such as adventism groups, unions, fraternal or athletic groups, or [...] and heating? Not hard at all 09/19/2022 [facility] of Occupat ional Health - Occupational [...] your living situation today? I have a [facility] place to live 09/19/2022 Education Answer Date Recorded What is the highest level of school you have completed or the highest degree you have received? Master's degree (e.g., MA, MS, Starla, Clark, FISH CUTTING MACHINE OPERATOR, DEBRA) 09/16/2018 Sex and Gender Information [...] Body Mass Index 34.47 06/18/2023 2:48 PM TELEPHONE SEX WORKER Plan of Treatment Upcoming Encounters Date Type Department Care Team (Latest Contact Info) Description 09/10/2023 12:30 PM CDT Appointment Department of Cardiovascular Diseases in [address] [phone] Ok Padilla M.D. [address] [place] [phone] 09/11/2023 11:45 AM CDT Office Visit Department of Cardiovascular Diseases in [address] [phone] Ok Padilla M.D. [address] [place] [phone] Discharge Disposition: Home or Self Care 09/17/2023 8:15 AM CDT Clinical Communication Virtual Review in [place], [place] 200 [place] [address] 09/18/2023 10:00 AM CDT Appointment Department of Laboratory Medicine and Pathology, [facility], in [place], [place] [address] [place] [phone] Bárbara Soto APRN, C.N.P. [address] [place] [phone] 09/18/2023 2:00 PM CDT Office Visit Division of Rheumatology in [address] [phone] Bárbara Soto APRN, C.N.P. [address] [place] [phone] 10/02/2023 10:00 AM CDT Virtual Visit Division of Endocrinology in [address] [phone] Get Ragland APRN, C.N.P., D.N.P. [address] [place] [phone] Medical Devices Implanted Type Area Swimmer Device Identifier Shelf Expiration Date Model / Serial / Lot Bonewax Implanted:Qty: 1 on 11/24/2019 by Curly Esparza M.D. at [facility] Bone or Tissue Right: Ankle Ethicon 09/12/2023 W31 / N/A / [id number] Conversions-Defa ult Historical Implant Device- 5 Implanted:2014 (Quantity not on file) Cardiac Stent Coronary Description:Device Status Te xt - Cardiac. 2 stents Conversions - Default Historical Implant Device-07/22/2002 Implanted:2002 (Quantity not on file) Cardiac Valve Prosthesis Aorta Description:[employer].Shorty (for bic uspid valve ) MR conditional 3T Device Status Text - CardValve. Scrw St Pthrd Nlck Lang 6.7x85 - [id number] Implanted:Qty: 2 on 11/24/2019 at [facility]/[employer] e.g. pins/screws/r ods Right: Ankle Arthrex AR-[id number] 1885 / / Clp Hrzn Ti 6 Eduardo Polanco Nirav - [id number] Implanted:Qty: 2 on 05/23/2020 by Eva Alicea M.D. at [facility] Hardware e.g. pins/screws/r ods [employer] [id number] / / Description:Biopsy marker Ocular Lens-04/14/2008 Implanted:2008 (Quantity not on file) Ocular Lens Bilateral: Eye Vascular Graft 2014 Vascular Graft Aorta Description:[place] Tag Endopro thesis graft places in descending aorta in 2014 at [facility]. 3T Conditional at Normal Normal per MagResource. Vascular Graft--07/22/2002 Implanted:2002 (Quantity not on file) Vascular Graft Aorta Description:Device Status Te xt - CardValve. Procedures Procedure Name Priority Date/Time Associated Diagnosis Comments CREATININE WITH EGFR, S/P Routine 07/23/2023 9:53 AM CDT Medication Therapy Senior Living Not Anticoagulant ALANINE AMINOTRANSFERASE (ALT), S/P Routine 07/23/2023 9:53 AM CDT Medication Therapy Senior Living Not Anticoagulant ASPARTATE AMINOTRANSFERASE (AST), S/P Routine 07/23/2023 9:53 AM CDT Medication Therapy Tradeshow Worker Not Anticoagulant CBC WITH DIFFERENTIAL, B Routine 07/23/2023 9:53 AM CDT Medication Therapy Tradeshow Worker Not Anticoagulant POTASSIUM, S/P Routine 05/30/2023 10:35 AM TELEPHONE SEX WORKER Hodgkin Lymphoma Unspecified Lymph Nodes Of Axilla And Upper Limb (HCC) LACTATE DEHYDROGENASE (LD), S Routine 05/30/2023 10:35 AM TELEPHONE SEX WORKER Hodgkin Lymphoma Unspecified Lymph Nodes Of Axilla And Upper Limb (HCC) CREATININE WITH EGFR, S/P Routine 05/30/2023 10:35 AM TELEPHONE SEX WORKER Hodgkin Lymphoma Unspecified Lymph Nodes Of Axilla And Upper Limb (HCC) CBC WITH DIFFERENTIAL, B Routine 05/30/2023 10:35 AM TELEPHONE SEX WORKER Hodgkin Lymphoma Unspecified Lymph Nodes Of Axilla And Upper Limb (HCC) CALCIUM, TOT, S/P Routine 05/30/2023 10: 35 AM TELEPHONE SEX WORKER Hodgkin Lymphoma Unspecified Lymph Nodes Of Axilla And Upper Limb (HCC) BILIRUBIN, TOT, S/P Routine 05/30/2023 1 0:35 AM TELEPHONE SEX WORKER Hodgkin Lymphoma Unspecified Lymph Nodes Of Axilla And Upper Limb (HCC) ASPARTATE AMINOTRANSFERASE (AST), S/P Routine 05/30/2023 10:35 AM TELEPHONE SEX WORKER Hodgkin Lymphoma Unspecified Lymph Nodes Of Axilla And Upper Limb (HCC) ALKALINE PHOSPHATASE, S/P Routine 05/30/2023 10:35 AM TELEPHONE SEX WORKER Hodgkin Lymphoma Unspecified Lymph Nodes Of Axilla [...] C.N.P. LAB BLOOD ADD-ON Performing Organization Address City/State/[facility] Co de Phone Number [facility] [address] [place] [address], [facility] CNFL [facility] in [address] [address] * ALT (Alanine Aminotransferase) (07/23/2023 9:53 AM CDT) Alanine Aminotransferase (ALT), P 26 7 - 55 U/L 07/23/2023 10:25 AM CDT CNFL Blood (Blood, Venous) 07/23/2023 9:53 AM CDT 07/23/2023 9:53 AM CDT Lanny Sawant APRN.N.P. LAB BLOOD ADD-ON [facility] [address] [place] [address], [facility] [place] [address] * AST (Aspartate Aminotransferase) (07/23/2023 9:53 AM CDT) Only the most recent of2 resultswithin the time period is included. Aspartate Aminotransferase (AST), P 25 8 - 48 U/L 07/23/2023 10:25 AM CDT CNFL Blood (Blood, Venous) 07/23/2023 9:53 AM CDT 07/23/2023 9:53 AM CDT Lanny Sawant APRN.N.P. LAB BLOOD ADD-ON Performing Organization Address [facility] [place] [address], [facility] CN[facility] [place] [address] * Creatinine with Estimated GFR (07/23/2023 9:53 [...] APRN.N.P. LAB BLOOD ADD-ON Performing Organization Address City/[facility]/ZIP Co de Phone Number [facility] [address] [place] [address], [facility] CNFL [facility] in [address] [address] * Potassium (05/30/2023 10:35 AM TELEPHONE SEX WORKER) Potassium, S 4.5 3.6 - 5.2 mmol/L 05/30/2023 12:43 PM TELEPHONE SEX WORKER DTL Blood (Blood, Venous) 05/30/2023 10:35 AM TELEPHONE SEX WORKER 05/30/2023 11:05 AM TELEPHONE SEX WORKER Lanny Perez APRN.N.P., D.N.P. LAB BLOOD ADD-ON Performing Organization Address City/[facility]/ZIP Co de Phone Number [facility] [address] [place] [address] * Alkaline Phosphatase (05/30/2023 10:35 AM TELEPHONE SEX WORKER) Alkaline Phosphatase, S 62 40 - 129 U/L 05/30/2023 12:43 PM TELEPHONE SEX WORKER DTL Blood (Blood, Venous) 05/30/2023 10:35 AM TELEPHONE SEX WORKER 05/30/2023 11:05 AM TELEPHONE SEX WORKER Lanny Perez APRN.N.P., D.N.P. LAB BLOOD ADD-ON [facility] [address] [place] [address] * (ABNORMAL) LD (Lactate Dehydrogenase) (05/30/2023 10:35 AM TELEPHONE SEX WORKER) Lactate Dehydrogenase (LD), S 347(H) 122 - 222 U/L 05/30/2023 12:43 PM TELEPHONE SEX WORKER DTL Blood (Blood, Venous) 05/30/2023 10:35 AM TELEPHONE SEX WORKER 05/30/2023 11:05 AM TELEPHONE SEX WORKER Lanny Perez APRN.N.P., D.N.P. LAB BLOOD NON ADD-ON [facility] [address] [place] [id number], [facility] 200 [place] [address] * Calcium, Total (05/30/2023 10:35 AM TELEPHONE SEX WORKER) Calcium, Total, S 9.1 8.8 - 10.2 mg/dL 05/30/2023 12:43 PM TELEPHONE SEX WORKER DTL Blood (Blood, Venous) 05/30/2023 10:35 AM TELEPHONE SEX WORKER 05/30/2023 11:05 AM TELEPHONE SEX WORKER Lanny Perez APRN.N.P., D.N.P. LAB BLOOD ADD-ON Performing Organization Address City/[facility] Co de Phone Number [facility] [address] [place], [place] [phone] [place] [address] 200 [place] [address] * (ABNORMAL) Bilirubin, Total (05/30/2023 10:35 AM TELEPHONE SEX WORKER) Bilirubin, Total, S 1.3(H) 0.0 - 1.2 mg/dL 05/30/2023 12:43 PM TELEPHONE SEX WORKER DTL Blood (Blood, Venous) 05/30/2023 10:35 AM TELEPHONE SEX WORKER 05/30/2023 11:05 AM TELEPHONE SEX WORKER Lanny Perez APRN.N.P., D.N.P. LAB BLOOD ADD-ON Performing Organization Address City/[facility]/ZIP Co de Phone Number [facility] [address] [place] [address] * (ABNORMAL) Lipid Panel (07/19/2022 10:40 AM CDT) Triglycerides 186(H) mg/dL 07/19/2022 11:18 AM CDT [facility] Comment: ----REFERENCE VALUE---- Normal: <150 mg/dL Borderline High: 150-199 mg/dL High: 200-499 mg/dL Very High: > or =500 mg/dL Cholesterol, Total 137 mg/dL 2022 11:18 AM T [place] Comment: ----REFERENCE VALUE---- Desirable: < 200 mg/dL Borderline High: 200 - 239 mg/dL High: > or = 240 mg/dL Cholesterol, LDL, Calculated 66 mg/dL 07/19/2022 11:18 AM T [facility] Comment: ----REFERENCE VALUE---- Desirable: <100 mg/dL Above Desirable: 100-129 mg/dL Borderline High: 130-159 mg/dL High: 160-189 mg/dL Very High: >=190 mg/dL ----ADDITIONAL INFORMATION---- LDL cholesterol calculated using the Posey/NIH equation. Cholesterol, HDL 40 >=40 mg/dL 07/20/19 11:18 AM T [facility] Cholesterol, Non-HDL, Calculated 97 mg/dL 07/19/2022 11:18 AM T [facility] Comment: ----REFERENCE VALUE---- Desirable: <130 mg/dL Above Desirable: 130-159 mg/dL Borderline High: 160-189 mg/dL High: 190-219 mg/dL Very High: > or =220 mg/dL Fasting (8 HR or more) yes 07/19/2022 11:01 AM T [facility] Comment:REVISED RESULTS Blood (Blood, Venous) 07/19/2022 10:40 AM CDT 07/19/2022 10:44 AM CDT Ok Padilla M.D. LAB BLOOD ADD-ON [facility] [address] [place] [address], [facility] [place] [address] * (ABNORMAL) Glucose, Fasting (07/19/2022 10:39 AM CDT) Glucose, P 109(H) 70 - 100 mg/dL 07/19/2022 11:14 AM CDT [facility] Last Intake 10 hr 07/19/2022 11:01 AM CDT [facility] Comment: REVISED RESULTS ----PREVIOUSLY REPORTED ---- 14, Flagged as: Normal (Reported 07/19/2022 10:46) Blood (Blood, Venous) 07/19/2022 10:39 AM CDT 07/19/2022 10:45 AM CDT Ok Padilla M.D. LAB BLOOD NON ADD- ON [address] [address], [facility] in [address] [address] * Sodium (01/25/2016 6:04 PM CDT) Sodium, S 142 135 - 145 MMOL/L [facility] 01/25/2016 6:04 PM CDT 01/25/2016 6:04 PM CDT Stephen Cespedes M.D. LAB BLOOD ADD-ON [facility] [address] from Last 3 Months or Most Recently Relevant to Health Maintenance Additional Health Concerns Infection Onset Date Last Indicated Protective Environment 07/19/2022 3 Advance Directives For more information, please contact: [phone] Documents on File Type Date Recorded Patient Healthcare Administration Intern Expl anation Advance Directives 01/18/2021 11:23 AM Dalychristin OvallesRadha English Charlette HCPOA/ADVOCATE/AGENT/R EPRESENTATIVE/SURROGAT E * Full Code (Latest [...] Relationship Healthcare Agent Relationshi p Communication Daly Adelso Ovalles Spouse Health Care Agent Radha Patel Daughter First Alternate Health Care Agent Gil Ovalles Son Second Alternate Health Care Agent Care Teams Music Manager Relationship Specialty Start Date End Date Elsewhere, Pcp PCP - General Family Medicine 11/27/20
--- OUTSIDE RECORDS SUMMARY | 2023-08-12 08:33 | XMS_ITS | Encounter Summary ---
Author Name Unknown Organization [facility] Address [address] [place] [address] Care Team Providers Care Gas Furnace Installer Name Role Phone Elsewhere, Pcp Primary Care Provider Unavailabl e Encounter Details Date Type Department Care Team (Latest Contact Info) Description 07/23/2023 9:49 AM CDT - 07/23/2023 11:59 PM CDT Hospital Encounter Department of Laboratory Medicine in [address] [phone] Bárbara Soto, JASON, C.N.P. 200 [place] [address] Medication Therapy Director Of Intercollegiate Athletics Not Anticoagulant Discharge Disposition: Home or Self [...] often do you attend chur ch or faith services? Never 07/16/2022 Do you belong to [...] and heating? Not hard at all 09/19/2022 [facility] Occupat ional Health - Occupational [...] Master's degree (e.g., MA, MS, Starla, MEd, TRAINING FACILITATOR, DEBRA) 09/16/2018 Sex and Gender Information Value [...] 6 (six) hours as needed for pain. alcohol swabs (Alcohol Prep) pads, medicated As directed 100 each 04/10/2023 amLODIPine (NORVASC) 10 mg tablet Take 10 mg by mouth daily. 03/11/2015 atorvastatin (LIPITOR) 40 mg tablet TAKE 1 TABLET BY MOUTH EVERY DAY 90 tablet 3 02/06/2023 cholecalciferol (VITAMIN D3) 50 mcg (2,000 Unit) capsule Take 2,000 Units by mouth daily. 05/02/2014 desvenlafaxine (PRISTIQ) 50 mg 24 hr tablet Take 50 mg by mouth daily. 03/04/2023 doxycycline hyclate (VIBRA-TABS) 100 mg tablet Take 100 mg by mouth 2 (two) times a day. 09/27/2022 enoxaparin (LOVENOX) 100 mg/mL injection Inject 100 mg under the skin as needed. 03/17/2023 folic acid 1 mg tabletIndications:Art hritis Psoriatic (HCC) Take 2 tablets (2,000 mcg total) by mouth daily. 180 tablet 3 09/26/2022 furosemide (LASIX) 20 mg tablet take 1 tablet by mouth every day 90 tablet 3 06/26/2023 loperamide (IMODIUM A-D) 2 mg tablet Take 1 mg by mouth 2 (two) times a day as needed for diarrhea. losartan (COZAAR) 100 mg tablet Take 100 mg by mouth daily. methotrexate 25 mg/mL injectionIndications: Arthritis Psoriatic (HCC) INJECT 0.7 ML (17.5 MG TOTAL) UNDER THE SKIN ONCE A WEEK. 10 mL 1 06/24/2023 mirtazapine (REMERON) 7.5 mg tablet Take 7.5 mg by mouth at bedtime. 01/16/2023 needle, disp, 27 gauge 27 gauge x 1/2 needleIndications:Art hritis Psoriatic (HCC) For methotrexate injections. 12 each 2 09/26/2022 omeprazole (PriLOSEC) [address] capsule Take 20 mg by mouth as needed. 11/25/2011 predniSONE (DELTASONE) 5 mg tabletIndications:Art hritis Psoriatic (HCC) 4 tabs x 3 days, 3 tabs x 3 days, 2 tabs x 3 days, 1 tabs x 3 days, off 30 tablet 07/21/2023 RX 1/2 Gallon Sharps Container Sharps 1/2 Gallon Sharps Container 1 each 04/10/2023 RX SIMPONI PATIENT KIT-OP ONLY SIMPONI PATIENT KIT 1 each 04/10/2023 RX WELCOME [id number] ONLY Welcome packet 1 each 04/10/2023 semaglutide (Wegovy) 0.25 mg/0.5 mL pen injector injectionIndications: Obesity Body Mass Index 30-39.9 Adult Inject 0.25 mg under the skin every 7 (seven) days. Follow prescriber's dose escalation instructions. 2 mL 07/23/2023 semaglutide (Wegovy) 0.5 mg/0.5 mL pen injector injectionIndications: Obesity Body Mass Index 30-39.9 Adult Inject 0.5 mg under the skin every 7 (seven) days. Follow prescriber's dose escalation instructions. 2 mL 07/23/2023 semaglutide (Wegovy) 1 mg/0.5 mL pen injector injectionIndications: Obesity Body Mass Index 30-39.9 Adult Inject 1 mg under the skin every 7 (seven) days. Follow prescriber's dose escalation instructions. 2 mL 07/23/2023 semaglutide (Wegovy) 1.7 mg/0.75 mL pen injector injectionIndications: Obesity Body Mass Index 30-39.9 Adult Inject 1.7 mg under the skin every 7 (seven) days. Follow prescriber's dose escalation instructions. 3 mL 1 07/23/2023 semaglutide (Wegovy) 2.4 mg/0.75 mL pen injector injectionIndications: Obesity Body Mass Index 30-39.9 Adult Inject 2.4 mg under the skin every 7 (seven) days. Follow prescriber's dose escalation instructions. 3 mL 11 07/23/2023 sennosides-docusate sodium (Senna with Docusate Sodium) 8.6-50 mg per tablet Take 1 tablet by mouth at bedtime as needed. For constipation 10/04/2020 sildenafiL (VIAGRA) 50 mg tablet Take 1 tablet (50 mg total) by mouth daily as needed for erectile dysfunction. 20 tablet 2 05/22/2022 SQ 1 Ml Injection KitIndications:Arthri tis Psoriatic (HCC) For methotrexate injections 1 kit 3 09/26/2022 syringe with needle (BD Tuberculin Syringe) 1 mL 27 x 1/2 syringeIndications:Ar thritis Psoriatic (HCC) Inject 1 Syringe under the skin once a week. For use with weekly Methotrexate Injections. 25 each 1 05/14/2023 tirzepatide (Zepbound) 10 mg/0.5 mL injection Inject 10 mg under the skin every 7 (seven) days. 2 mL 06/18/2023 tirzepatide (Zepbound) 2.5 mg/0.5 mL injection Inject 2.5 mg under the skin every 7 (seven) days. 2 mL 06/18/2023 tirzepatide (Zepbound) 5 mg/0.5 mL injection Inject 5 mg under the skin every 7 (seven) days. 2 mL 06/18/2023 tirzepatide (Zepbound) 7.5 mg/0.5 mL injection Inject 7.5 mg under the skin every 7 (seven) days. 2 mL 06/18/2023 triamcinolone (KENALOG) 0.5 % cream Apply 1 Application topically as needed. 11/07/2022 venlafaxine XR (EFFEXOR-XR) 150 mg 24 hr capsule Take 150 mg by mouth daily with breakfast. ALSO TAKES A 75 MG CAPSULE DAILY WITH BREAKFAST - 08/05/2021 venlafaxine XR (EFFEXOR-XR) 75 mg 24 hr capsule Take 75 mg by mouth daily. ALSO TAKES A 150 MG CAPSULE DAILY WITH BREAKFAST - 09/22/2019 warfarin (Coumadin) 5 mg tablet Take 1.5-2 tablets (7.5-10 mg total) by mouth daily. 10 mg on , , Sat. 7.5 mg all other days 10/19/2020 documented as of this encounter Plan of Treatment Upcoming Encounters Date Type Department Care Team (Latest Contact Info) Description 09/10/2023 12:30 PM CDT Appointment Department of Cardiovascular Diseases in [address] [phone] Ok Padilla M.D. 200 [place] [address] 09/11/2023 11:45 AM CDT Office Visit Department of Cardiovascular Diseases in [address] [phone] Ok Padilla M.D. 200 [place] [address] Discharge Disposition: Home or Self Care 09/17/2023 8:15 AM CDT Clinical Communication Virtual Review in [place], [place] 200 [place] [address] 09/18/2023 10:00 AM CDT Appointment Department of Laboratory Medicine and Pathology, [facility], in [address] [phone] Bárbara Soto APRN, C.N.P. [address] [place] [phone] 09/18/2023 2:00 PM CDT Office Visit Division of Rheumatology in [address] [phone] Bárbara Soto APRN, C.N.P. [address] [place] [phone] 10/02/2023 10:00 AM CDT Virtual Visit Division of Endocrinology in [address] [phone] Get Ragland APRN, C.N.P., D.N.P. [address] [place] [phone] documented as of this encounter Procedures Procedure Name Priority Date/Time Associated Diagnosis Comments CBC WITH DIFFERENTIAL, B Routine 07/23/2023 9:53 AM CDT Medication Therapy Mcc Not Anticoagulant ALANINE AMINOTRANSFERASE (ALT), S/P Routine 07/23/2023 9:53 AM CDT Medication Therapy Mcc Not Anticoagulant ASPARTATE AMINOTRANSFERASE (AST), S/P Routine 07/23/2023 9:53 AM CDT Medication Therapy Mcc Not Anticoagulant CREATININE WITH EGFR, S/P Routine 07/23/2023 9:53 AM CDT Medication Therapy Mcc Not Anticoagulant documented in this encounter Results * Creatinine with Estimated GFR (07/23/2023 9:53 AM CDT) Creatinine 1.11 0.74 - 1.35 mg/dL 07/23/2023 10:25 AM CDT CNFL Estimated GFR (eGFR) 73 >=60 mL/min/BSA 07/23/2023 10:25 AM CDT [place] Comment: Estimated GFR calculated using the 2020 CKD_EPI creatinine equation. Blood (Blood, Venous) 07/23/2023 9:53 AM CDT 07/23/2023 9:53 AM CDT Bárbara Soto APRN, C.N.P. [place] [address], [place] [address] * ALT (Alanine Aminotransferase) (07/23/2023 9:53 AM CDT) Alanine Aminotransferase (ALT), P 26 7 - 55 U/L 07/23/2023 10:25 AM CDT [facility] Blood (Blood, Venous) 07/23/2023 9:53 AM CDT 07/23/2023 9:53 AM CDT Bárbara Soto APRN, C.N.P. [place] [address], [place] [address] * AST (Aspartate Aminotransferase) (07/23/2023 9:53 AM CDT) Aspartate Aminotransferase (AST), P 25 8 - 48 U/L 07/23/2023 10:25 AM CDT [facility] Blood (Blood, Venous) 07/23/2023 9:53 AM CDT 07/23/2023 9:53 AM CDT Bárbara Soto APRN, C.N.P. LAB BLOOD ADD-ON [facility] [address] [place] [phone], [facility] CNFL [facility] in [address] [address] * CBC with Differential, Blood (07/23/2023 9:53 AM CDT) Hemoglobin 14.4 13.2 - 16.6 g/dL 07/23/2023 [...] Bárbara Soto APRN, C.N.P. LAB BLOOD ADD-ON [facility] [address] [place] [address], [facility] in [address] [address] documented in this encounter Visit Diagnoses Diagnosis Medication Therapy Director Of Intercollegiate Athletics Not Anticoagulant documented in this encounter Additional Health Concerns Infection Onset Date Last Indicated Resolved Time Protective Environment 07/19/2022 07/19/2022 Assessment Noted Time PHQ-9 Depression Total Score: 0 01/01/20 16 12:53 PM CDT documented as of this encounter Care Teams Gas Furnace Installer Relationship Specialty Start Date End Date Elsewhere, Pcp PCP - General Family Medicine 11/27/20 documented as of this encounter
--- OUTSIDE RECORDS SUMMARY | 2023-08-12 08:33 | XMS_ITS | Encounter Summary ---
Author Name Unknown Organization [facility] Address [address] [place] [address] Care Team Providers Care Agriculture Intern Name Role Phone Elsewhere, Pcp Primary Care Provider Unavailabl e Reason for Visit * Reason Comments Med Refill Encounter Details Date Type Department Care Team (Late st Contact Info) Description 06/26/2023 Refill Department of Cardiovascular Diseases in [address] [phone] Ok Padilla M.D. 200 [place] [address] Med Refill Social History Tobacco Use Types [...] How often do you attend chur or advent services? Never 07/16/2022 Do you belong to any clubs o r organizations such as religious groups, unions, fraternal or athletic groups, or [...] at all 09/19/2022 [facility] - Occupational Stress Questionnaire Answer Date [...] your living situation today? I have a [facility] place to live 09/19/2022 Education Answer Date Recorded What is the highest level of school you have completed or the highest degree you have received? Master's degree (e.g., MA, MS, Starla, MEd, GARNETT MECHANIC, DEBRA) 09/16/2018 Sex and Gender Information Value Date Recorded Sex Assigned at Male 10/08/2017 8:25 AM CDT Gender Identity Male 10/08/2017 8:25 AM CDT Sexual Orientation Straight 10/08/2017 8: 25 AM CDT documented as of this encounter Plan of Treatment Upcoming Encounters Date Type Department Care Team (Latest Contact Info) Description 09/10/2023 12:30 PM CDT Appointment Department of Cardiovascular Diseases in [place] [address] [place] [phone] Ok Padilla M.D. 200 [place] [phone] 09/11/2023 11:45 AM CDT Office Visit Department of Cardiovascular Diseases in [place] [address] [place] [phone] Ok Padilla M.D. [address] [place] [phone] Discharge Disposition: Home or Self Care 09/17/2023 8:15 AM CDT Clinical Communication Virtual Review in [place], [place] 200 [place] [address] 09/18/2023 10:00 AM CDT Appointment Department of Laboratory Medicine and Pathology, [facility] in [place], [place] [address] [place] [phone] Bárbara Soto APRN, C.N.P. [address] [place] [phone] 09/18/2023 2:00 PM CDT Office Visit Division of Rheumatology in [place], [place] [address] [place] [phone] Bárbara Soto APRN, C.N.P. [address] [place] [phone] 10/02/2023 10:00 AM CDT Virtual Visit Division of Endocrinology in [address] [phone] Get Ragland APRN, C.N.P., D.N.P. [address] [place] [phone] documented as of this encounter Visit Diagnoses Not on filedocumented in this encounter Additional Health Concerns Infection Onset Date Last Indicated Resolved Time Protective Environment 07/19/2022 07/19/2022 Assessment Noted Time PHQ-9 Depression Total Score: 0 01/01/20 16 12:53 PM CDT documented as of this encounter Care Teams Agriculture Intern Relationship Specialty Start Date End Date Elsewhere, Pcp PCP - General Family Medicine 11/27/20 documented as of this encounter
--- OUTSIDE RECORDS SUMMARY | 2023-08-12 08:33 | XMS_ITS | Encounter Summary ---
Author Name Unknown Organization [facility] Address 200 [place] [address] Care Team Providers Care Reference And Instruction Librarian Name Role Phone Elsewhere, Pcp Primary Care Provider Unavailabl e Reason for Visit * Reason Onset Date Comments Rx Denial 07/08/2023 Zepbound Encounter Details Date Type Department Care Team (Latest Contact Info) Description 07/08/2023 Clinical Communication Division of Endocrinology in [place], [place] [address] [place] [address] Get Ragland, JASON, C.N.P., D.N.P. [address] [place] [address] Rx Denial (Zepbound) Social History Tobacco Use Types Packs/Day Years [...] How often do you attend chur or mandaen services? Never 07/16/2022 Do you belong to [...] and heating? Not hard at all 09/19/2022 [facility] of Occupat ional Health - [...] your living situation today? I have a [facility] place to live 09/19/2022 Education Answer Date Recorded What is the highest level of school you have completed or the highest degree you have received? Master's degree (e.g., MA, MS, Starla, MEd, SHRIMP PICKER, DEBRA) 09/16/2018 Sex and Gender Information Value Date Recorded Sex Assigned at Male 10/08/2017 8:25 AM CDT Gender Identity Male 10/08/2017 8:25 AM CDT Sexual Orientation Straight 10/08/2017 8: 25 AM CDT documented as of this encounter Plan of Treatment Upcoming Encounters Date Type Department Care Team (Latest Contact Info) Description 09/10/2023 12:30 PM CDT Appointment Department of Cardiovascular Diseases in [place] [address] [place] [phone] Ok Padilla M.D. 200 [place] [address] 09/11/2023 11:45 AM CDT Office Visit Department of Cardiovascular Diseases in [place], [place] [address] [place] [phone] Ok Padilla M.D. [address] [place] [phone] Discharge Disposition: Home or Self Care 09/17/2023 8:15 AM CDT Clinical Communication Virtual Review in [place], [place] 200 [place] [address] 09/18/2023 10:00 AM CDT Appointment Department of Laboratory Medicine and Pathology, [facility] in [place], [place] [address] [place] [phone] Bárbara Soto APRN, C.N.P. [address] [place] [phone] 09/18/2023 2:00 PM CDT Office Visit Division of Rheumatology in [place], [place] [address] [place] [phone] Bárbara Soto APRN, C.N.P. [address] [place] [phone] 10/02/2023 10:00 AM CDT Virtual Visit Division of Endocrinology in [place], [place] [address] [place] [phone] Get Ragland APRN, C.N.P., D.N.P. [address] [place] [phone] documented as of this encounter Visit Diagnoses Not on filedocumented in this encounter Additional Health Concerns Infection Onset Date Last Indicated Resolved Time Protective Environment 07/19/2022 07/19/2022 Assessment Noted Time PHQ-9 Depression Total Score: 0 01/01/20 16 12:53 PM CDT documented as of this encounter Care Teams Reference And Instruction Librarian Relationship Specialty Start Date End Date Elsewhere, Pcp PCP - General Family Medicine 11/27/20 documented as of this encounter
--- OUTSIDE RECORDS SUMMARY | 2023-08-12 08:33 | XMS_ITS ---
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 Other Current Plans golimumab (SIMPONI ARIA)* Plan Start Date:12/05/2022 Plan Provider:Bárbara Soto APRN C.N.PRebecca Linked Problems Arthritis Psoriatic (HCC) Treatment Medications No medications scheduled. Vascular Access Patency - Peripheral Intravenous Catheter and Rapid Infusion Catheter* Plan Start Date:08/11/2023 Linked Problems Arthritis Psoriatic (HCC) Treatment Medications [...] On Elapsed Days Session Dose Total Dose [id number] 02/21/2021 20 200 cGy 3,000 cGy Lifetime [...]
--- OUTSIDE RECORDS SUMMARY | 2023-08-12 08:33 | XMS_ITS | Encounter Summary ---
Author Name Unknown Organization [facility] Address [address] [place] [address] Care Team Providers Care Seo Coordinator Name Role Phone Elsewhere, Pcp Primary Care Provider Unavailabl e Encounter Details Date Type Department Care Team (Late st Contact Info) Description 06/23/2023 Orders Only Division of Rheumatology in [place], [place] [address] [place] [phone] Bárbara Soto, CORN HUSK BALER, C.N.P. [address] [place] [phone] Social History Tobacco Use Types Packs/Day Years [...] any clubs o r organizations such as congregation groups, unions, fraternal or athletic groups, or [...] the money to buy more. Never true 06/08/20 23 Within the past 12 months, t [...] your living situation today? I have a [facility] place to live 09/19/2022 Education Answer Date Recorded What is the highest level of school you have completed or the highest degree you have received? Master's degree (e.g., MA, MS, Starla, MEd, SONG WRITER, DEBRA) 09/16/2018 Sex and Gender Information Value Date Recorded Sex Assigned at Male 10/08/2017 8:25 AM CDT Gender Identity Male 10/08/2017 8:25 AM CDT Sexual Orientation Straight 10/08/2017 8: 25 AM CDT documented as of this encounter Plan of Treatment Upcoming Encounters Date Type Department Care Team (Latest Contact Info) Description 09/10/2023 12:30 PM CDT Appointment Department of Cardiovascular Diseases in [address] [phone] Ok Padilla M.D. 200 [place] [phone] 09/11/2023 11:45 AM CDT Office Visit Department of Cardiovascular Diseases in [address] [phone] Ok Padilla M.D. 200 [place] [address] Discharge Disposition: Home or Self Care 09/17/2023 8:15 AM CDT Clinical Communication Virtual Review in [place], [place] [address] [place] [address] 09/18/2023 10:00 AM CDT Appointment Department of Laboratory Medicine and Pathology, [facility], in [place], [place] [address] [place] [phone] Bárbara Soto APRN, C.N.P. [address] [place] [phone] 09/18/2023 2:00 PM CDT Office Visit Division of Rheumatology in [place], [place] [address] [place] [phone] Bárbara Soto APRN, C.N.P. [address] [place] [phone] 10/02/2023 10:00 AM CDT Virtual Visit Division of Endocrinology in [place], [place] [address] [place] [phone] Get Ragland APRN, C.N.P., D.N.P. [address] [place] [phone] documented as of this encounter Visit Diagnoses Not on filedocumented in this encounter Additional Health Concerns Infection Onset Date Last Indicated Resolved Time Protective Environment 07/19/2022 07/19/2022 Assessment Noted Time PHQ-9 Depression Total Score: 0 01/01/20 16 12:53 PM CDT documented as of this encounter Care Teams Seo Coordinator Relationship Specialty Start Date End Date Elsewhere, Pcp PCP - General Family Medicine 11/27/20 documented as of this encounter
--- OUTSIDE RECORDS SUMMARY | 2023-08-12 08:33 | XMS_ITS | Encounter Summary ---
Author Name Unknown Organization [facility] Address [address] [place] [address] Care Team Providers Care Learning Operations Specialist Name Role Phone Elsewhere, Pcp Primary Care Provider Unavailabl e Reason for Visit * Reason Comments Med Refill Encounter Details Date Type Department Care Team (Late st Contact Info) Description 08/08/2023 Refill Division of Rheumatology in [place], [place] [address] [place] [address] Bárbara Soto, JASON, C.N.P. [address] [place] [phone] Med Refill Social History Tobacco Use Types [...] any clubs o r organizations such as synagogue groups, unions, fraternal or athletic groups, or [...] and heating? Not hard at all 09/19/2022 [facility] - Occupational Stress Questionnaire [...] your living situation today? I have a [facility] place to live 09/19/2022 Education Answer Date Recorded What is the highest level of school you have completed or the highest degree you have received? Master's degree (e.g., MA, MS, Starla, MEd, RIVETING MACHINE OPERATOR, DEBRA) 09/16/2018 Sex and Gender Information Value Date Recorded Sex Assigned at Male 10/08/2017 8:25 AM CDT Gender Identity Male 10/08/2017 8:25 AM CDT Sexual Orientation Straight 10/08/2017 8: 25 AM CDT documented as of this encounter Plan of Treatment Upcoming Encounters Date Type Department Care Team (Latest Contact Info) Description 09/10/2023 12:30 PM CDT Appointment Department of Cardiovascular Diseases in [place] [address] [place] [phone] Ok Padilla M.D. 200 [place] [phone] 09/11/2023 11:45 AM CDT Office Visit Department of Cardiovascular Diseases in [place] [address] [place] [phone] Ok Padilla M.D. [address] [place] [phone] Discharge Disposition: Home or Self Care 09/17/2023 8:15 AM CDT Clinical Communication Virtual Review in [place], [place] 200 [place] [address] 09/18/2023 10:00 AM CDT Appointment Department of Laboratory Medicine and Pathology, [facility] in [place], [place] [address] [place] [phone] Bárbara Soto APRN, C.N.P. [address] [place] [phone] 09/18/2023 2:00 PM CDT Office Visit Division of Rheumatology in [place], [place] [address] [place] [phone] Bárbara Soto APRN, C.N.P. [address] [place] [phone] 10/02/2023 10:00 AM CDT Virtual Visit Division of Endocrinology in [address] [phone] Get Ragland APRN, C.N.P., D.N.P. [address] [place] [phone] documented as of this encounter Visit Diagnoses Diagnosis Arthritis Psoriatic (HCC) documented in this encounter Additional Health Concerns Infection Onset Date Last Indicated Resolved Time Protective Environment 07/19/2022 07/19/2022 Assessment Noted Time PHQ-9 Depression Total Score: 0 01/01/20 16 12:53 PM CDT documented as of this encounter Care Teams Learning Operations Specialist Relationship Specialty Start Date End Date Elsewhere, Pcp PCP - General Family Medicine 11/27/20 documented as of this encounter
--- OUTSIDE RECORDS SUMMARY | 2023-08-12 08:33 | XMS_ITS ---
Author Name Unknown Organization [facility] Address [address] [place] [address] Care Team Providers Care Surveyor Name Role Phone Unavailable Unavailable Unavailable Surgery Details Not on file Complications Check Surgery Details section. Procedure Estimated Blood Loss Check Surgery Details section. Procedure Findings Check Surgery Details section. Procedure Specimens Taken Check Surgery Details section.
--- OUTSIDE RECORDS SUMMARY | 2023-08-12 08:33 | XMS_ITS | Encounter Summary ---
Author Name Unknown Organization [facility] Address 200 [place] [address] Care Team Providers Care Iphone Developer Name Role Phone Elsewhere, Pcp Primary Care Provider Unavailabl e Encounter Details Date Type Department Care Team (Late st Contact Info) Description 06/26/2023 Clinical Communication Division of Rheumatology in [place], [place] [address] [place] [address] Trang Montalvo R.N. [address] [place] [phone] Social History Tobacco Use Types Packs/Day Years [...] and heating? Not hard at all 09/19/2022 [facility] - [...] Master's degree (e.g., MA, MS, Starla, MEd, ANTIQUE AUTOMOBILES REPAIRER, DEBRA) 09/16/2018 Sex and Gender Information Value Date Recorded Sex Assigned at Male 10/08/2017 8:25 AM CDT Gender Identity Male 10/08/2017 8:25 AM CDT Sexual Orientation Straight 10/08/2017 8: 25 AM CDT documented as of this encounter Miscellaneous Notes * Telephone Encounter - Trang Montalvo R.N. - 06/26/2023 2:36 PM CDT Documentation note only, patient not contacted ASSESSMENT Rheumatology monitoring labs completed on 05/30/23 for methotrexate monitoring were reviewed per provider order. Labs reviewed: absolute neutrophil count, AST, creatinine, hemoglobin, leukocytes, platelets Labs viewable in Labs Tab of Chart Review. PLAN Patient to continue with current plan of care. Patient next due for monitoring labs three months after last monitoring labs; these future lab orders were NOT placed. Next lab scheduled for 09/18/23. documented in this encounter Plan of Treatment Upcoming Encounters Date Type Department Care Team (Latest Contact Info) Description 09/10/2023 12:30 PM CDT Appointment Department of Cardiovascular Diseases in [address] [phone] Ok Padilla M.D. [address] [place] [phone] 09/11/2023 11:45 AM CDT Office Visit Department of Cardiovascular Diseases in [address] [phone] Ok Padilla M.D. [address] [place] [phone] Discharge Disposition: Home or Self Care 09/17/2023 8:15 AM CDT Clinical Communication Virtual Review in [place], [place] 200 [place] [address] 09/18/2023 10:00 AM CDT Appointment Department of Laboratory Medicine and Pathology, [facility] in [place], [place] [address] [place] [phone] Bárbara Soto APRN, C.N.P. [address] [place] [phone] 09/18/2023 2:00 PM CDT Office Visit Division of Rheumatology in [address] [phone] Bárbara Soto APRN, C.N.P. [address] [place] [phone] 10/02/2023 10:00 AM CDT Virtual Visit Division of Endocrinology in [address] [phone] Get Ragland APRN, C.N.P., D.N.P. [address] [place] [phone] documented as of this encounter Visit Diagnoses Not on filedocumented in this encounter Additional Health Concerns Infection Onset Date Last Indicated Resolved Time Protective Environment 07/19/2022 07/19/2022 Assessment Noted Time PHQ-9 Depression Total Score: 0 01/01/20 16 12:53 PM CDT documented as of this encounter Care Teams Iphone Developer Relationship Specialty Start Date End Date Elsewhere, Pcp PCP - General Family Medicine 11/27/20 documented as of this encounter
--- OUTSIDE RECORDS SUMMARY | 2023-08-12 08:34 | XMS_ITS | Encounter Summary ---
Author Name Unknown Organization [facility] Address [address] [place] [id number] Care Team Providers Care Aircraft Load Controller Name Role Phone Elsewhere, Pcp Primary Care Provider Unavailabl e Reason for Visit * Reason Onset Date Comments Pre-visit Intake 06/17/2023 Encounter Details Date Type Department Care Team (Latest Contact Info) Description 06/17/2023 10:30 AM EMPLOYEE TRAINING SPECIALIST Clinical Communication Virtual Review in [place], [place] 200 [place] [phone] Pre-visit Intake Social History Tobacco Use Types [...] often do you attend chur ch or sikhism services? Never 07/16/2022 Do you belong to [...] and heating? Not hard at all 09/19/2022 [facility] - Occupational Stress Questionnaire Answer Date [...] living situation today? I have a [facility] place to live 09/19/2022 Education Answer Date Recorded What is the highest level of school you have completed or the highest degree you have received? Master's degree (e.g., MA, MS, Starla, MEd, BARGE ENGINEER, DEBRA) 09/16/2018 Sex and Gender Information Value Date Recorded Sex Assigned at Male 10/08/2017 8:25 AM CDT Gender Identity Male 10/08/2017 8:25 AM CDT Sexual Orientation Straight 10/08/2017 8: 25 AM CDT documented as of this encounter Plan of Treatment Upcoming Encounters Date Type Department Care Team (Latest Contact Info) Description 09/10/2023 12:30 PM CDT Appointment Department of Cardiovascular Diseases in [address] [phone] Ok Padilla M.D. 200 [place] [phone] 09/11/2023 11:45 AM CDT Office Visit Department of Cardiovascular Diseases in [address] [phone] Ok Padilla M.D. 200 [place] [phone] Discharge Disposition: Home or Self Care 09/17/2023 8:15 AM CDT Clinical Communication Virtual Review in [place], [place] 200 [place] [address] 09/18/2023 10:00 AM CDT Appointment Department of Laboratory Medicine and Pathology, [facility] in [place], [place] [address] [place] [phone] Bárbara Soto APRN, C.N.P. [address] [place] [phone] 09/18/2023 2:00 PM CDT Office Visit Division of Rheumatology in [place], [place] [address] [place] [phone] Bárbara Soto APRN, C.N.P. [address] [place] [phone] 10/02/2023 10:00 AM CDT Virtual Visit Division of Endocrinology in [place], [place] [address] [place] [phone] Get Ragland APRN, C.N.P., D.N.P. [address] [place] [phone] documented as of this encounter Visit Diagnoses Not on filedocumented in this encounter Additional Health Concerns Infection Onset Date Last Indicated Resolved Time Protective Environment 07/19/2022 07/19/2022 Assessment Noted Time PHQ-9 Depression Total Score: 0 01/01/20 16 12:53 PM CDT documented as of this encounter Care Teams Aircraft Load Controller Relationship Specialty Start Date End Date Elsewhere, Pcp PCP - General Family Medicine 11/27/20 documented as of this encounter
--- OUTSIDE RECORDS SUMMARY | 2023-08-12 08:34 | XMS_ITS | Encounter Summary ---
Author Name Unknown Organization [facility] Address 200 [place] [address] Care Team Providers Care Pole Inspector Name Role Phone Elsewhere, Pcp Primary Care Provider Unavailabl e Reason for Visit * Episode Based Medications (Routine) - Authorized Specialty Diagnoses / Procedures Referred By Contdiana t Referred To Contact Diagnoses Arthritis Psoriatic (HCC) Bárbara Soto APRN, C.N.P. [address] [place] [phone] Rst Scar Cadet [address] [place] [phone] Referral ID Status Reason Start Date Expiration Date V isits Requested Visits Authorized [id number] Authorized 11/14/2022 11/13/2024 99 99 Encounter Details Date Type Department Care Team (Late st Contact Info) Description 06/16/2023 11:30 AM GARMENT MENDER Infusion Department of Infusion Therapy in [place], [place] [address] [place] [phone] Bárbara Soto APRN, C.N.P. [address] [place] [phone] Arthritis Psoriatic (HCC) (Primary Dx) Social History [...] often do you attend chur ch or jainism services? Never 07/16/2022 Do you belong to [...] and heating? Not hard at all 09/19/2022 [facility] - Occupational Stress [...] Master's degree (e.g., MA, MS, Starla, MEd, METAPHYSICIAN, DEBRA) 09/16/2018 Sex and Gender Information Value Date Recorded Sex Assigned at Male 10/08/2017 8:25 AM CDT Gender Identity Male 10/08/2017 8:25 AM CDT Sexual Orientation Straight 10/08/2017 8: 25 AM CDT documented as of this encounter Last Filed Vital Signs Vital Sign Reading Time Taken Comments Blood Pressure 123/59 06/16/2023 11:26 AM GARMENT MENDER Pulse 77 06/16/2023 11:26 AM GARMENT MENDER Temperature 36.2 ??C (97.2 ??F) 06/16/2023 11:[address] Respiratory Rate 18 06/16/2023 11:26 AM GARMENT MENDER Oxygen Saturation 95% 06/16/2023 11:26 AM GARMENT MENDER Inhaled Oxygen Concentration - - Weight 111 kg (244 lb 0.8 oz) 06/16/2023 11:26 A M GARMENT MENDER Height - - Body Mass Index 34.7 05/30/2023 1:01 PM GARMENT MENDER documented in this encounter Plan of Treatment Upcoming Encounters Date Type Department Care Team (Latest Contact Info) Description 09/10/2023 12:30 PM CDT Appointment Department of Cardiovascular Diseases in [address] [phone] Ok Padilla M.D. [address] [place] [phone] 09/11/2023 11:45 AM CDT Office Visit Department of Cardiovascular Diseases in [address] [phone] Ok Padilla M.D. [address] [place] [phone] Discharge Disposition: Home or Self Care 09/17/2023 8:15 AM CDT Clinical Communication Virtual Review in [place], [place] 200 [place] [address] 09/18/2023 10:00 AM CDT Appointment Department of Laboratory Medicine and Pathology, [facility], in [address] [phone] Bárbara Soto APRN, C.N.P. [address] [place] [phone] 09/18/2023 2:00 PM CDT Office Visit Division of Rheumatology in [place], [place] [address] [place] [phone] Bárbara Soto APRN, C.N.P. [address] [place] [phone] 10/02/2023 10:00 AM CDT Virtual Visit Division of Endocrinology in [place], [place] [address] [place] [phone] Get Ragland APRN, C.N.P., D.N.P. [address] [place] [phone] documented as of this encounter Visit Diagnoses [...] mL/hr, Administer over 30 Minutes, Once, On Fri06/16/23 at 1145, For 1 dose, Do NOT shake. Use in-line filter. Do NOT refrigerate. New Bag 06/16/2023 11:51 AM GARMENT MENDER 225 mg 200 mL/hr documented in this encounter Additional Health Concerns Infection Onset Date Last Indicated Resolved Time Protective Environment 07/19/2022 07/19/2022 Assessment Noted Time PHQ-9 Depression Total Score: 0 01/01/20 16 12:53 PM CDT documented as of this encounter Care Teams Pole Inspector Relationship Specialty Start Date End Date Elsewhere, Pcp PCP - General Family Medicine 11/27/20 documented as of this encounter
--- OUTSIDE RECORDS SUMMARY | 2023-08-12 08:34 | XMS_ITS | Encounter Summary ---
Author Name Unknown Organization [facility] Address 200 [place] [address] Care Team Providers Care Fbi Profiler Name Role Phone Elsewhere, Pcp Primary Care Provider Unavailabl e Encounter Details Date Type Department Care Team (Late st Contact Info) Description 06/12/2023 Clinical Communication Department of Infusion Therapy in [place], [place] [address] [place] [phone] Ashleigh Zuluaga R.N. [address] [place] [phone] Social History Tobacco Use Types Packs/Day Years [...] often do you attend chur ch or anglican services? Never 07/16/2022 Do you belong to any clubs o r organizations such as nondenominational groups, unions, fraternal or athletic groups, or [...] your living situation today? I have a [facility] place to live 09/19/2022 Education Answer Date Recorded What is the highest level of school you have completed or the highest degree you have received? Master's degree (e.g., MA, MS, Starla, MEd, SOCIAL SECURITY SPECIALIST, DEBRA) 09/16/2018 Sex and Gender Information Value Date Recorded Sex Assigned at Male 10/08/2017 8:25 AM CDT Gender Identity Male 10/08/2017 8:25 AM CDT Sexual Orientation Straight 10/08/2017 8: 25 AM CDT documented as of this encounter Plan of Treatment Upcoming Encounters Date Type Department Care Team (Latest Contact Info) Description 09/10/2023 12:30 PM CDT Appointment Department of Cardiovascular Diseases in [address] [phone] Ok Padilla M.D. 200 [place] [phone] 09/11/2023 11:45 AM CDT Office Visit Department of Cardiovascular Diseases in [address] [place] [phone] Ok Padilla M.D. 200 [place] [phone] Discharge Disposition: Home or Self Care 09/17/2023 8:15 AM CDT Clinical Communication Virtual Review in [place], [place] 200 [place] [phone] 09/18/2023 10:00 AM CDT Appointment Department of Laboratory Medicine and Pathology, [facility] in [place], [place] [address] [place] [phone] Bárbara Soto APRN, C.N.P. [address] [place] [phone] 09/18/2023 2:00 PM CDT Office Visit Division of Rheumatology in [place], [place] [address] [place] [phone] Bárbara Soto APRN, C.N.P. [address] [place] [phone] 10/02/2023 10:00 AM CDT Virtual Visit Division of Endocrinology in [address] [phone] Get Ragland APRN, C.N.P., D.N.P. [address] [place] [phone] documented as of this encounter Visit Diagnoses Not on filedocumented in this encounter Additional Health Concerns Infection Onset Date Last Indicated Resolved Time Protective Environment 07/19/2022 07/19/2022 Assessment Noted Time PHQ-9 Depression Total Score: 0 01/01/20 16 12:53 PM CDT documented as of this encounter Care Teams Fbi Profiler Relationship Specialty Start Date End Date Elsewhere, Pcp PCP - General Family Medicine 11/27/20 documented as of this encounter
--- OUTSIDE RECORDS SUMMARY | 2023-08-12 08:34 | XMS_ITS | Encounter Summary ---
Author Name Unknown Organization [facility] Address 200 [place] [address] Care Team Providers Care Special Effects Technician Name Role Phone Elsewhere, Pcp Primary Care Provider Unavailabl e Reason for Visit * Reason Comments Med Refill Encounter Details Date Type Department Care Team (Late st Contact Info) Description 05/14/2023 Refill Division of Rheumatology in [place], [place] [address] [place] [phone] Bárbara Soto, JASON, C.N.P. [address] [place] [phone] Med Refill Social History Tobacco Use Types [...] and heating? Not hard at all 09/19/2022 [facility] [...] have a [facility] place to live 09/19/2022 Education Answer Date Recorded What is the highest level of school you have completed or the highest degree you have received? Master's degree (e.g., MA, MS, Starla, MEd, MATERIALS MANAGER, DEBRA) 09/16/2018 Sex and Gender Information Value Date Recorded Sex Assigned at Male 10/08/2017 8:25 AM CDT Gender Identity Male 10/08/2017 8:25 AM CDT Sexual Orientation Straight 10/08/2017 8: 25 AM CDT documented as of this encounter Plan of Treatment Upcoming Encounters Date Type Department Care Team (Latest Contact Info) Description 09/10/2023 12:30 PM CDT Appointment Department of Cardiovascular Diseases in [place] [address] [place] [phone] Ok Padilla M.D. 200 [place] [phone] 09/11/2023 11:45 AM CDT Office Visit Department of Cardiovascular Diseases in [place] [address] [place] [phone] Ok Padilla M.D. [address] [place] [phone] Discharge Disposition: Home or Self Care 09/17/2023 8:15 AM CDT Clinical Communication Virtual Review in [place], [place] 200 [place] [phone] 09/18/2023 10:00 AM CDT Appointment Department of Laboratory Medicine and Pathology, [facility] in [place], [place] [address] [place] [phone] Bárbara Soto APRN, C.N.P. [address] [place] [phone] 09/18/2023 2:00 PM CDT Office Visit Division of Rheumatology in [place], [place] [address] [place] [phone] Bárbara Soto APRN, C.N.P. [address] [place] [phone] 10/02/2023 10:00 AM CDT Virtual Visit Division of Endocrinology in [address] [phone] Get Ragland APRN, C.N.P., D.N.P. [address] [place] [phone] documented as of this encounter Visit Diagnoses Diagnosis Arthritis Psoriatic (HCC) documented in this encounter Additional Health Concerns Infection Onset Date Last Indicated Resolved Time Protective Environment 07/19/2022 07/19/2022 Assessment Noted Time PHQ-9 Depression Total Score: 0 01/01/20 16 12:53 PM CDT documented as of this encounter Care Teams Special Effects Technician Relationship Specialty Start Date End Date Elsewhere, Pcp PCP - General Family Medicine 11/27/20 documented as of this encounter
--- OUTSIDE RECORDS SUMMARY | 2023-08-12 08:34 | XMS_ITS | Encounter Summary ---
Author Name Unknown Organization [facility] Address [address] [place] [address] Care Team Providers Care Receptionist Telephone Operator Name Role Phone Elsewhere, Pcp Primary Care Provider Unavailabl e Encounter Details Date Type Department Care Team (Latest Contact Info) Description 05/30/2023 10:[address] SQL DEVELOPER - 05/30/2023 11:[address] [facility] Hospital Encounter Department of Laboratory Medicine and Pathology, [facility], in [place], [place] [address] [place] [address] Sole Read APRN, C.N.P., D.N.P. [address] [place] [phone] Hodgkin Lymphoma Unspecified Lymph Nodes Of Axilla [...] How often do you attend chur or church services? Never 07/16/2022 Do you [...] and heating? Not hard at all 09/19/2022 [facility] [place] of Occupat ional Health - Occupational Stress [...] your living situation today? I have a [facility] place to live 09/19/2022 Education Answer Date Recorded What is the highest level of school you have completed or the highest degree you have received? Master's degree (e.g., MA, MS, Starla, MEd, TARE WEIGHER, DEBRA) 09/16/2018 Sex and Gender Information Value [...] as needed. 03/17/2023 folic acid 1 mg tabletIndications:Ar thritis Psoriatic (HCC) Take 2 tablets (2,000 mcg total) by mouth daily. 180 tablet 3 09/26/2022 labetaloL (NORMODYNE) 100 mg tablet Take 100 mg by mouth 2 (two) times a day. 03/14/2023 loperamide (IMODIUM A-D) 2 mg tablet Take 1 mg by mouth 2 (two) times a day as needed for diarrhea. losartan (COZAAR) 100 mg tablet Take 100 mg by mouth daily. mirtazapine (REMERON) 7.5 mg tablet Take 7.5 mg by mouth at bedtime. 01/16/2023 needle, disp, 27 gauge 27 gauge x 1/2 needleIndications:Ar thritis Psoriatic (HCC) For methotrexate injections. 12 each 2 09/26/2022 omeprazole (PriLOSEC) [address] capsule Take 20 mg by mouth as needed. 11/25/2011 RX 1/2 Gallon Sharps Container Sharps 1/2 Gallon Sharps Container 1 each 04/10/2023 RX SIMPONI PATIENT KIT-OP ONLY SIMPONI PATIENT KIT 1 each 04/10/2023 RX WELCOME [id number] ONLY Welcome packet 1 each 04/10/2023 sennosides-docusate sodium (Senna with Docusate Sodium) [...] Tuberculin Syringe) 1 mL 27 x 1/2 syringeIndications:A rthritis Psoriatic (HCC) Inject 1 Syringe under the skin once a week. For use with weekly Methotrexate Injections. 25 each 1 05/14/2023 triamcinolone (KENALOG) 0.5 % cream Apply 1 [...] Sat. 7.5 mg all other days 10/19/2020 furosemide (LASIX) 20 mg tablet TAKE 1 TABLET BY MOUTH EVERY DAY 90 tablet 3 06/27/2022 06/26/2023 golimumab (Simponi) 50 mg/0.5 mL injection Inject 50 mg under the skin. 03/31/2023 06/17/2023 labetaloL (NORMODYNE) 200 mg tablet Take 400 mg by mouth 3 (three) times a day. 06/17/2023 levETIRAcetam (KEPPRA) 1,000 mg tablet Take 1,000 mg by mouth 2 (two) times a day. 03/14/2023 06/17/2023 methotrexate 25 mg/mL injectionIndications :Arthritis Psoriatic (HCC) Inject 0.7 mL (17.5 mg total) under the skin once a week. 10 mL 1 03/27/2023 06/24/2023 warfarin (JANTOVEN) 1 mg tablet Take 3 mg by mouth. 03/14/2023 06/17/19 24 documented as of this encounter Plan of Treatment Upcoming Encounters Date Type Department Care Team (Latest Contact Info) Description 09/10/2023 12:30 PM CDT Appointment Department of Cardiovascular Diseases in [address] [phone] Ok Padilla M.D. [address] [place] [phone] 09/11/2023 11:45 AM CDT Office Visit Department of Cardiovascular Diseases in [address] [phone] Ok Padilla M.D. [address] [place] [phone] Discharge Disposition: Home or Self Care 09/17/2023 8:15 AM CDT Clinical Communication Virtual Review in [place], [place] 200 [place] [address] 09/18/2023 10:00 AM CDT Appointment Department of Laboratory Medicine and Pathology, [facility] in [address] [phone] Bárbara Soto APRN, C.N.P. [address] [place] [phone] 09/18/2023 2:00 PM CDT Office Visit Division of Rheumatology in [address] [phone] Bárbara Soto APRN, C.N.P. [address] [place] [phone] 10/02/2023 10:00 AM CDT Virtual Visit Division of Endocrinology in [address] [phone] Get Ragland APRN, C.N.P., D.N.P. [address] [place] [phone] documented as of this encounter Procedures Procedure Name Priority Date/Time Associated Diagnosis Comments CBC WITH DIFFERENTIAL, B Routine 024 10:[address] SQL DEVELOPER Hodgkin Lymphoma Unspecified Lymph Nodes Of Axilla And Upper Limb (HCC) ASPARTATE AMINOTRANSFERASE (AST), S/P Routine 05/30/2023 10:[address] SQL DEVELOPER Hodgkin Lymphoma Unspecified Lymph Nodes Of Axilla And Upper Limb (HCC) POTASSIUM, S/P Routine 05/30/2023 10:[address] SQL DEVELOPER Hodgkin Lymphoma Unspecified Lymph Nodes Of Axilla And Upper Limb (HCC) ALKALINE PHOSPHATASE, S/P Routine 05/30/2023 10:[address] SQL DEVELOPER Hodgkin Lymphoma Unspecified Lymph Nodes Of Axilla And Upper Limb (HCC) LACTATE DEHYDROGENASE (LD), S Routine 05/30/2023 10:[address] SQL DEVELOPER Hodgkin Lymphoma Unspecified Lymph Nodes Of Axilla And Upper Limb (HCC) CREATININE WITH EGFR, S/P Routine 05/30/2023 10:[address] SQL DEVELOPER Hodgkin Lymphoma Unspecified Lymph Nodes Of Axilla And Upper Limb (HCC) CALCIUM, TOT, S/P Routine 05/30/2023 10: [address] SQL DEVELOPER Hodgkin Lymphoma Unspecified Lymph Nodes Of Axilla And Upper Limb (HCC) BILIRUBIN, TOT, S/P Routine 05/30/2023 1 0:[address] SQL DEVELOPER Hodgkin Lymphoma Unspecified Lymph Nodes Of Axilla And Upper Limb (HCC) documented in this encounter Results * Potassium (05/30/2023 10:[address] SQL DEVELOPER) Potassium, S 4.5 3.6 - 5.2 mmol/L 05/30/2023 12:[address] SQL DEVELOPER DTL Blood (Blood, Venous) 05/30/2023 10:[address] SQL DEVELOPER 05/30/2023 11:[address] SQL DEVELOPER Sole Read APRN, C.N.P., D.N.P. LAB BLOOD ADD-ON [facility] [address] [place], [place] [address] [address] [place] [address] * (ABNORMAL) LD (Lactate Dehydrogenase) (05/30/2023 10:[address] SQL DEVELOPER) Pathologist [facility] Lactate Dehydrogenase (LD), S 347(H) 122 - 222 U/L 05/30/2023 12:[address] SQL DEVELOPER DTL Blood (Blood, Venous) 05/30/2023 10:[address] SQL DEVELOPER 05/30/2023 11:[address] SQL DEVELOPER Lanny Perez APRN.N.P., D.N.P. LAB BLOOD NON ADD-ON [facility] [address] [place] [address], [facility] [address] [place] [address] * (ABNORMAL) Creatinine with Estimated GFR (05/30/2023 10:[address] SQL DEVELOPER) Pathologist [facility] Creatinine 1.33 0.74 - 1.35 mg/dL 05/30/2023 12:[address] SQL DEVELOPER DTL Estimated GFR (eGFR) 59(L) >=60 mL/min/BSA 05/30/2023 12:[address] SQL DEVELOPER DTL Comment: Estimated GFR calculated using the 2020 CKD_EPI creatinine equation. Blood (Blood, Venous) 05/30/2023 10:[address] SQL DEVELOPER 05/30/2023 11:[address] SQL DEVELOPER Sole Read APRN, C.N.P., D.N.P. LAB BLOOD ADD-ON [facility] [address] [place] [address], [facility] [address] [place] [address] * CBC with Differential, Blood (05/30/2023 10:[address] SQL DEVELOPER) Pathologist [facility] Hemoglobin 14.7 13.2 - 16.6 g/dL 05/30/2023 11:[address] SQL DEVELOPER DTL Hematocrit 43.9 38.3 - 48.6 % 05/30/2023 11:[address] SQL DEVELOPER DTL Erythrocytes 4.75 4.35 - 5.65 x10(12)/L 05/30/2023 11:[address] SQL DEVELOPER DTL MCV 92.4 78.2 - 97.9 fL 05/30/2023 11:[address] SQL DEVELOPER DTL RBC Distrib Width 13.3 11.8 - 14.5 % 05/30/2023 11:[address] SQL DEVELOPER DTL Platelet Count 136 135 - 317 x10(9)/L 05/30/2023 11:[address] SQL DEVELOPER DTL Comment:Results confirmed by smear, no clumping or interference seen. Leukocytes 5.2 3.4 - 9.6 x10(9)/L 05/30/2023 11:[address] SQL DEVELOPER DTL Neutrophils 2.62 1.56 - 6.45 x10(9)/L 05/30/2023 11:[address] SQL DEVELOPER [facility] Lymphocytes 1.73 0.95 - 3.07 x10(9)/L 05/30/2023 11:[address] SQL DEVELOPER DTL Monocytes 0.52 0.26 - 0.81 x10(9)/L 05/30/2023 11:[address] SQL DEVELOPER DTL Eosinophils 0.29 0.03 - 0.48 x10(9)/L 05/30/2023 11:[address] SQL DEVELOPER DTL Basophils 0.03 0.01 - 0.08 x10(9)/L 05/30/2023 11:[address] SQL DEVELOPER DTL Blood (Blood, Venous) 05/30/2023 10:[address] SQL DEVELOPER 05/30/2023 10:[address] SQL DEVELOPER Sole Read APRN, C.N.P., D.N.P. LAB BLOOD ADD-ON [facility] [address] [place] [address], [facility] DTL [facility] [address] [place] [address] [facility] [address] [place] [address] * Calcium, Total (05/30/2023 10:[address] SQL DEVELOPER) Calcium, Total, S 9.1 8.8 - 10.2 mg/dL 05/30/2023 12:[address] SQL DEVELOPER DTL Blood (Blood, Venous) 05/30/2023 10:[address] SQL DEVELOPER 05/30/2023 11:[address] SQL DEVELOPER Sole Read APRN, Lanny.N.P., D.N.P. LAB BLOOD ADD-ON Performing Organization Address City/[facility] Co de Phone Number [facility] [address] [place] [address] * (ABNORMAL) Bilirubin, Total (05/30/2023 10:[address] SQL DEVELOPER) Bilirubin, Total, S 1.3(H) 0.0 - 1.2 mg/dL 05/30/2023 12:[address] SQL DEVELOPER DTL Blood (Blood, Venous) 05/30/2023 10:[address] SQL DEVELOPER 05/30/2023 11:[address] SQL DEVELOPER Sole Read APRN, C.N.P., D.N.P. LAB BLOOD ADD-ON Performing Organization Address City/[facility] Co de Phone Number [facility] [address] [place] [address] * AST (Aspartate Aminotransferase) (05/30/2023 10:[address] SQL DEVELOPER) Aspartate Aminotransferase (AST), S 27 8 - 48 U/L 05/30/2023 12:[address] SQL DEVELOPER DTL Blood (Blood, Venous) 05/30/2023 10:[address] SQL DEVELOPER 05/30/2023 11:[address] SQL DEVELOPER Sole Read APRN, Lanny.NFrancesca., D.N.P. LAB BLOOD ADD-ON Performing Organization Address City/[facility]/ZIP Co de Phone Number [id number] [place] [address] * Alkaline Phosphatase (05/30/2023 10:[address] SQL DEVELOPER) Alkaline Phosphatase, S 62 40 - 129 U/L 05/30/2023 12:[address] SQL DEVELOPER DTL Blood (Blood, Venous) 05/30/2023 10:[address] SQL DEVELOPER 05/30/2023 11:[address] SQL DEVELOPER Bindu Perez APRNNFrancesca., D.N.P. LAB BLOOD ADD-ON Performing Organization Address [facility] Co de Phone Number [phone] [place] [address] documented in this encounter Visit Diagnoses Diagnosis Hodgkin Lymphoma Unspecified Lymph Nodes Of Axilla And Upper Limb (HCC) documented in this encounter Additional Health Concerns Infection Onset Date Last Indicated Resolved Time Protective Environment 07/19/2022 07/19/2022 Assessment Noted Time PHQ-9 Depression Total Score: 0 01/01/20 16 12:53 PM CDT documented as of this encounter Care Teams Receptionist Telephone Operator Relationship Specialty Start Date End Date Elsewhere, Pcp PCP - General Family Medicine 11/27/20 documented as of this encounter
--- OUTSIDE RECORDS SUMMARY | 2023-08-12 08:34 | XMS_ITS | Encounter Summary ---
Author Name Unknown Organization [facility] Address [address] [place] [address] Care Team Providers Care Nurse Ob Name Role Phone Elsewhere, Pcp Primary Care Provider Unavailabl e Reason for Referral * Outpatient (Routine) - Authorized Specialty Diagnoses / Procedures Referred By Contac t Referred To Contact Hematology Oncology Sole Read APRN, C.N.P., D.N.P. [address] [place] [address] [facility] Referral ID Status Reason Start Date Expiration Date V isits Requested Visits Authorized [id number] Authorized 05/30/2023 11/28/2024 1 1 ATION CONSULTANT Reason for Visit * Outpatient (Routine) - Closed Specialty Diagnoses / Procedures Referred By Contac t Referred To Contact Hematology Oncology Sole Read APRN, C.N.P., D.N.P. [address] [place] [address] [facility] Referral ID Status Reason Start Date Expiration Date Visits Re quested Visits Authorized [id number] Closed 11/27/2022 11/26/2025 1 1 Encounter Details Date Type Department Care Team ([facility] st Contact Info) Description 05/30/2023 1:00 PM VALUATION CONSULTANT Office Visit Division of Hematology in [place], [place] [address] [place] [address] Sole Read APRN, C.N.P., D.N.P. 200 [place] [address] Hodgkin Lymphoma Unspecified Lymph Nodes Of Axilla [...] any clubs o r organizations such as episcopal groups, unions, fraternal or athletic groups, or [...] and heating? Not hard at all 09/19/2022 [employer] [place] of Occupat ional Health - Occupational Stress [...] living situation today? I have a [facility] place to live 09/19/2022 Education Answer Date Recorded What is the highest level of school you have completed or the highest degree you have received? Master's degree (e.g., MA, MS, Starla, MEd, TOWEL CABINET REPAIRER, DEBRA) 09/16/2018 Sex and Gender Information Value Date Recorded Sex Assigned at Male 10/08/2017 8:25 AM CDT Gender Identity Male 10/08/2017 8:25 AM CDT Sexual Orientation Straight 10/08/2017 8: 25 AM CDT documented as of this encounter Last Filed Vital Signs Vital Sign Reading Time Taken Comments Blood Pressure 133/77 05/30/2023 1:01 PM VALUATION CONSULTANT Pulse 79 05/30/2023 1:01 PM VALUATION CONSULTANT Temperature 36.9 ??C (98.4 ??F) 05/30/2023 1:01 PM CS T Respiratory Rate - - Oxygen Saturation 96% 05/30/2023 1:01 PM VALUATION CONSULTANT Inhaled Oxygen Concentration - - Weight 112 kg (247 lb 5.7 oz) 05/30/2023 1:01 PM VALUATION CONSULTANT Height 178.6 cm (5' 10.32) 05/30/2023 1:[address] Body Mass Index 35.17 05/30/2023 1:01 PM VALUATION CONSULTANT documented in this encounter Progress Notes * Sole Read APRN, C.N.P., D.N.P. - 05/30/2023 1:[address] SUBJECTIVE CHIEF COMPLAINT / REASON FOR VISIT Primary lymphoma MD: Dr. Benz Primary lymphoma PARVIN: Sole Read APRN, IT SUPPORT MANAGER, DNP Classical Hodgkin Lymphoma HISTORY OF PRESENT [...] Chest CT 06/07/20 First ABVD infusion in [place] 09/08/2020 CT chest IMPRESSION: 1. Interval increase in bulky right axillary lymphadenopathy. No mediastinal or hilar lymphadenopathy. 2. 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 male who presents for evaluation of his Hodgkin lymphoma. Patient completed ABVD in December of 2020 with consolidative RT to the right axilla. Patient reports he has beendoing well since we last saw him. He denies B symptoms and palpable adenopathy. He has not had recurrent infections. Unfortunately, patient developed bilateral subdural hematomas [facility]. He underwent craniotomy for evacuation of hematomas. During his hospital course he also suffered a TIA. He fortunately, has completely recovered from this hospitalization. Since then, he has been doing extremely well. Otherwise, patient does not endorse fever, chills, drenching night sweats, unintentional weight loss, palpable adenopathy, fatigue, changes to appetite, nausea/vomiting, diarrhea, constipation, changes to bladder habits, neuropathy, palpitations, chest pain, shortness of breath, mouth sores, antibiotic use, dizziness, and unexplained rash or pruritus. ECOG score 0. The following portions of the patient's history were reviewed and updated as appropriate: allergies, current medications, family history, medical history, social history, surgical history, and problem list. REVIEW OF SYSTEMS REVIEW OF SYSTEMS OBJECTIVE BP 133/77 (BP Location: Left arm, Patient Position: Sitting, Cuff Size: Large) Pulse 79 Temp 36.9 ??C (Tympanic) Ht 178.6 cm Wt 112 kg SpO2 96% BMI 35.17 kg/m?? Wt Readings from Last 3 Encounters: 05/30/23 112 kg 04/17/23 110 kg 04/01/23 107 kg PHYSICAL EXAM General: Well-nourished, in good [...] the recent relevant laboratory studies. Labs are unremarkable. ASSESSMENT / PLAN #1 Hodgkin Lymphoma Unspecified Lymph Nodes Of Axilla And Upper Limb (HCC) It was a pleasure seeing Mr. Ovalles in clinic this afternoon. I reviewed patient's labs with him which include a normal CBC and stable LDH which is elevated secondary to his arthritis. Patient denies B symptoms as well. Physical examination is unremarkable without any lymphadenopathy or hepatosplenomegaly. Given this, I see no clinical, biochemical, or physical examination evidence of relapse of his lymphoma. Will continue on a course of surveillance. I will plan to see patient back in 6 months with labs and H&P. Patient understands he should contact me in the interim if he develops anyconcerning symptoms or if he has any concerns. [...] and/or coordination of care as described above. ATION CONSULTANT documented in this encounter Plan of Treatment Upcoming Encounters Date Type Department Care Team (Latest Contact Info) Description 09/10/2023 12:30 PM CDT Appointment Department of Cardiovascular Diseases in [place] [address] [place] [phone] Ok Padilla M.D. 200 [place] [address] 09/11/2023 11:45 AM CDT Office Visit Department of Cardiovascular Diseases in [place] [address] [place] [phone] Ok Padilla M.D. [address] [place] [phone] Discharge Disposition: Home or Self Care 09/17/2023 8:15 AM CDT Clinical Communication Virtual Review in [place], [place] 200 [place] [address] 09/18/2023 10:00 AM CDT Appointment Department of Laboratory Medicine and Pathology, [facility] in [place], [place] [address] [place] [phone] Bárbara Soto APRN, C.N.P. [address] [place] [phone] 09/18/2023 2:00 PM CDT Office Visit Division of Rheumatology in [place], [place] [address] [place] [phone] Bárbara Soto APRN, C.N.P. [address] [place] [phone] 10/02/2023 10:00 AM CDT Virtual Visit Division of Endocrinology in [address] [phone] Get Ragland APRN, C.N.P., D.N.P. [address] [place] [phone] Scheduled Orders Name Type Priority Associated Diagnoses Orde r Schedule Alkaline Phosphatase Lab Routine Hodgkin Lymphoma Unspecified Lymph Nodes Of Axilla And Upper Limb (HCC) Expected: 11/28/2023, Expires: 05/30/2026 AST (Aspartate Aminotransferase) Lab Routine Hodgkin Lymphoma Unspecified Lymph Nodes Of Axilla And Upper Limb (HCC) Expected: 11/28/2023, Expires: 05/30/2026 Bilirubin, Total Lab Routine Hodgkin Lymphoma Unspecified Lymph Nodes Of Axilla And Upper Limb (HCC) Expected: 11/28/2023, Expires: 05/30/2026 Calcium, Total Lab Routine Hodgkin Lymphoma Unspecified Lymph Nodes Of Axilla And Upper Limb (HCC) Expected: 11/28/2023, Expires: 05/30/2026 CBC with Differential, Blood Lab Routine Hodgkin Lymphoma Unspecified Lymph Nodes Of Axilla And Upper Limb (HCC) Expected: 11/28/2023, Expires: 05/30/2026 Creatinine with Estimated GFR Lab Routine Hodgkin Lymphoma Unspecified Lymph Nodes Of Axilla And Upper Limb (HCC) Expected: 11/28/2023, Expires: 05/30/2026 LD (Lactate Dehydrogenase) Lab Routine Hodgkin Lymphoma Unspecified Lymph Nodes Of Axilla And Upper Limb (HCC) Expected: 11/28/2023, Expires: 05/30/2026 Potassium Lab Routine Hodgkin Lymphoma Unspecified Lymph Nodes Of Axilla And Upper Limb (HCC) Expected: 11/28/2023, Expires: 05/30/2026 Scheduled Referrals Name Type Priority Associated Diagnoses Order Schedule Hematology office visit (clinic) [place]; Lymphoma; General Outpatient Referral Routine Expected: 11/28/2023 (Approximate), Expires: 08/27/2024 documented as of this encounter Visit Diagnoses Diagnosis Hodgkin Lymphoma Unspecified Lymph Nodes Of Axilla And Upper Limb (HCC)- Primary documented in this encounter Additional Health Concerns Infection Onset Date Last Indicated Resolved Time Protective Environment 07/19/2022 07/19/2022 Assessment Noted Time PHQ-9 Depression Total Score: 0 01/01/20 16 12:53 PM CDT documented as of this encounter Care Teams Nurse Ob Relationship Specialty Start Date End Date Elsewhere, Pcp PCP - General Family Medicine 11/27/20 documented as of this encounter
--- NOTE | 2023-08-12 08:43 | ED.GENADULT ---
HPI - General Adult General Chief complaint: Unspecified Complaint, Adult Stated complaint: sleepy Time Seen by Provider: 08/12/23 08:24 History of Present Illness HPI narrative: Very pleasant gentleman who has a past medical history of previous aortic dissection (aortic stent (on warfarin), hyperlipidemia, hypertension, psoriasis, depression, as well as a history of a left-sided subdural hematoma last fall. He apparently had a relatively minor head injury last January and then had worsening mental status and neurologic changes so was diagnosed with a subdural here in [place] last February. He was transferred emergently to [facility] where he had craniotomy. He recovered, with a slow recovery after his surgery and is now back to normal. He has had a couple follow-up visits with the neurosurgery team at [facility] and as apparently been doing well. About a month ago he began to notice that there was some prominent ridge is on his left parietal skull in the area where he had his craniotomy and the skull piece replaced. He had not really noticed them prior to that. They are not painful. They are not inflamed. There had not been red or swollen. No bleeding or purulent drainage. He has otherwise been feeling okay. He says he does not really feel sleepy, forgetful, nauseous, and does not think he is having any other neurologic symptoms. He says his has not been complaining that he has been forgetful or having any other symptoms either. Last night he was watching TV with his when he was feeling the left side of his skull any noticed a new depression just to the front of his skull from where the ridges and his previous incision had been. He had never noticed before last night. He does not know if it is a problem. It is not painful. No injury. He came to the ER this morning out of an abundance of caution, since he had had serious illness (subdural hematoma requiring craniotomy) in the past and not recognized it. Related Data Home Medications Medication Instructions Recorded Confirmed Medical Marijuana PO 11/22/21 05/19/23 acetaminophen 500 mg tablet 1,000 mg PO .Daily as needed PRN 11/22/21 05/19/23 atorvastatin 40 mg tablet 40 mg PO DAILY 11/22/21 05/19/23 cholecalciferol (vitamin D3) 25 2,000 unit PO DAILY 11/22/21 05/19/23 mcg (1,000 unit) tablet golimumab [Simponi ARIA] IV .[id number] 11/22/21 05/19/23 lansoprazole 30 mg capsule,delayed 30 mg PO DAILY PRN 11/22/21 05/19/23 release folic acid 1 mg tablet 2 mg PO QDAY 04/22/22 05/19/23 venlafaxine 150 mg 150 mg PO QDAY 04/22/22 05/19/23 capsule,extended release 24 hr venlafaxine 75 mg capsule,extended 75 mg PO QDAY 04/22/22 05/19/23 release 24 hr methotrexate sodium 25 mg/mL mg subcut 12/03/22 05/19/23 injection solution mirtazapine 7.5 mg tablet 7.5 mg PO QPM 12/03/22 05/19/23 bupropion HCl 150 mg 24 hr tablet, 150 mg PO QAM 02/28/23 05/19/23 extended release labetalol 200 mg tablet 100 mg PO BID 03/17/23 05/19/23 levetiracetam 1,000 mg tablet 1,000 mg PO BID 03/17/23 05/19/23 (Keppra) Previous Rx's Medication Instructions Recorded furosemide 20 mg tablet (Lasix) 20 mg PO QDAY #90 tabs 03/14/22 triamcinolone acetonide 0.5 % 1 applic topical BID #15 grams 11/07/22 topical cream enoxaparin 100 mg/mL subcutaneous 100 mg subcut Q12H Anticoagulation 03/17/23 syringe (Lovenox) #10 mL losartan 100 mg tablet 100 mg PO DAILY #90 tabs 05/07/23 warfarin 5 mg tablet 5 mg PO QDAY #150 tabs 06/16/23 Allergies Allergy/AdvReac Type Severity Reaction Status Date / Time No Known Drug Allergies Allergy Verified 05/19/23 12:23 [facility] Medical History History of Hodgkin's lymphoma ?Z85.71 - Personal history of Hodgkin lymphoma (ICD-10) Surgical History History of aortic dissection ?Z86.79 - Personal history of other diseases of the circulatory system (ICD-10) Status post aortic valve replacement ?Z95.2 - Presence of prosthetic heart valve (ICD-10) History of colonoscopy ?Z98.890 - Other specified postprocedural states (ICD-10) History of aortic valve repair ?Z98.890 - Other specified postprocedural states (ICD-10) ?Z86.79 - Personal history of other diseases of the circulatory system (ICD-10) History of ankle surgery ?Z98.890 - Other specified postprocedural states (ICD-10) History of incisional hernia repair ?Z98.890 - Other specified postprocedural states (ICD-10) ?Z87.19 - Personal history of other diseases of the digestive system (ICD-10) History of arthroscopy of shoulder ?Z98.890 - Other specified postprocedural states (ICD-10) History of surgery on wrist ?Z98.890 - Other specified postprocedural states (ICD-10) History of cataract surgery ?Z98.49 - Cataract extraction status, unspecified eye (ICD-10) History of colectomy ?Z90.49 - Acquired absence of other specified parts of digestive tract (ICD-10) History of uvulectomy ?Z90.89 - Acquired absence of other organs (ICD-10) History of vasectomy ?Z98.52 - Vasectomy status (ICD-10) Status post aortic aneurysm repair ?Z98.890 - Other specified postprocedural states (ICD-10) ?Z86.79 - Personal history of other diseases of the circulatory system (ICD-10) Social History What is your current living situation?: I presently have a place to live Problems where you live: no known problems In the past 12 months, utilities in danger of being shut off: no In past 12 months, lack of transportation kept you from medical appts, meetings, work, or getting things needed for daily living: no In the past 12 mos, have been you worried that your food would run out before you had money to buy more?: never true In the past 12 mos, the food you bought just didn't last and you didn't have money to buy more?: never true Smoking Status: Former smoker Do you use any of these nicotine containing products: None Second hand tobacco smoke exposure: No How often do you have a drink containing alcohol: 4 or more times a week How many standard drinks containing alcohol do you have on a typical day: 1 or 2 How often do you have six or more drinks on one occasion: Never AUDIT-C Alcohol total score: 4 Non-prescribed substance use: denies use Non-prescribed substance use details: marijuana gummies for psoriatic arthritis nightly. How often does anyone, including family, friends and others, physically hurt you: never How often does anyone, including family, friends and others, insult or talk down to you: never How often does anyone, including family, friends and others, threaten you with harm: never How often does anyone, including family, friends and others, scream or curse at you: never Little interest or pleasure in doing things: several days Feeling down, depressed, or hopeless: several days service: No Exam Narrative: Exam Narrative: Constitutional: Appears well-developed and well-nourished. Alert. Conversant. Non toxic. HENT: Head: Atraumatic. He does have the well-healed incisions on the left parietal scalp. No signs of any open incision, drainage, redness, swelling, pus, or infection. No bruising. No hematomas. He does have a palpable bone ridge on the left parietal skull which is probably where his craniotomy healed. No multiple bone fragments or crepitus or definite depressed skull fracture, Raccoon Eyes, Meza's sign, or hemotympanum. Face normal. TMs normal Nose: Nose normal. Mouth/Throat: Oral mucosa is clear and moist. no trismus. Eyes: Conjunctivae normal. EOM normal. Pupils equal, round, and reactive to light. No scleral icterus. Neck: Normal range of motion. Neck supple. No tracheal deviation present. Cardiovascular: Normal rate, regular rhythm. Normal capillary refill. Pulmonary/Chest: Effort normal. No stridor. No respiratory distress. Musculoskeletal: RUE: Normal range of motion. No tenderness. No deformity LUE: Normal range of motion. No tenderness. No deformity RLE: Normal range of motion. No edema. No tenderness. No deformity LLE: Normal range of motion. No edema. No tenderness. No deformity Lymph: No cervical adenopathy. Neurological: Alert and oriented to person, place, and time. Normal strength. CN II-VII intact. No sensory deficit. GCS eye subscore is 4. GCS verbal subscore is 5. GCS motor subscore is 6. Normal coordination Skin: Skin is warm and dry. No rash noted. No pallor. Normal capillary refill. Psychiatric: Normal mood. Normal affect. ] Const: Vital Signs, click to edit/add: Vital Signs - 24 hr 08/12/23 07:52 Temperature 98.1 F Pulse Rate [Pulse Oximeter] 83 Respiratory Rate 18 Blood Pressure [Ri ght Upper Arm] 123/85 Pulse Oximetry 97 Oxygen Delivery Me thod Room Air Course Vital Signs Vital signs: Initial Vital Signs Temperature 98.1 F 08/12/23 07:52 Temperature Source Temporal Artery Scan 08/12/23 07:52 Pulse Rate 83 08/12/23 07:52 Respiratory Rate 18 08/12/23 07:52 Blood Pressure 123/85 08/12/23 07:52 Blood Pressure Mean 97 08/12/23 07:52 Pulse Oximetry 97 08/12/23 07:52 Oxygen Delivery Method Room Air 08/12/23 07:52 Vital Signs Temperature 98.1 F 08/12/23 07:52 Pulse Rate 83 08/12/23 07:52 Respiratory Rate 18 08/12/23 07:52 Blood Pressure 123/85 08/12/23 07:52 Pulse Oximetry 97 08/12/23 07:52 Oxygen Delivery Method Room Air 08/12/23 07:52 Temperature 98.1 F 08/12/23 07:52 Pulse Rate 83 08/12/23 07:52 Respiratory Rate 18 08/12/23 07:52 Blood Pressure 123/85 08/12/23 07:52 Pulse Oximetry 97 08/12/23 07:52 Oxygen Delivery Method Room Air 08/12/23 07:52 Medical Decision Making MDM Narrative Medical decision making narrative: Very pleasant gentleman with a history of subdural hematoma requiring craniotomy about 6 months ago. He presents to the ER today with concern that he is feeling new Ridges along his previous craniotomy incisions. At least 1 of the Ridges been there for about a month any knows the new 1 last night. Unclear if it is really new or feet just palpated for the 1st time last night. He does not have any other symptoms currently. No headache. No recent falls. He has not had any redness or swelling or drainage from the scalp. Mental status has been normal. No confusion, blurry vision, dizzy spells, vomiting. He is concerned because he is just feeling the ridges in his skull. We did perform CT imaging to make sure there was no sign of any new depressed skull fracture or any signs of complication from the surgery or any new intracranial hemorrhages. At this point the patient is safe for discharge home. Recommend outpatient follow-up with his neuro surgery team. I wonder if he may just be experiencing some new skull and morphology because some of the overlying soft tissue swelling is going away as he heals or this could be remodeling from his previous bone grafts. Precautions for return to the ER reviewed. Questions answered Imaging Data CT scan - head: Attestation: I have reviewed the pertinent imaging results. Radiologist's impression: IMPRESSION: 1. Status post left frontoparietal craniotomy without discrete soft tissue lesion. Some bony resorption noted at the posterior/superior aspect of the craniotomy flap. 2. No intracranial bleed or mass effect. Discharge Plan Discharge Clinical Impression: Status post craniotomy Patient Disposition: Home, Self-Care Condition: Stable Instructions: Acute Headache (ED), Acute Headache (DC) Additional Instructions: The CT scan of your brain and skull looks good today. There is no sign of any infection, swelling, bleeding, or other problem of your brain or in the area of your skull surgery. The plates of skull appear to be healing. Please monitor carefully. If you have any problems such as worsening pain, increasing swelling, confusion, nausea or vomiting, dizzy spells, or forgetfulness, come back to the ER right away to be rechecked. Please follow-up with your neuro surgery team at [facility] within the next 1-3 weeks. Prescriptions: No Action atorvastatin 40 mg tablet 40 mg PO DAILY acetaminophen 500 mg tablet 1,000 mg PO .Daily as needed PRN Rx Instructions: NO MORE THAN 4000 MG/DAY cholecalciferol (vitamin D3) 25 mcg (1,000 unit) tablet 2,000 unit PO DAILY lansoprazole 30 mg capsule,delayed release(DR/EC) 30 mg PO DAILY PRN golimumab [Simponi ARIA] IV .[id number] Medical Marijuana PO folic acid 1 mg tablet 2 mg PO QDAY Patient Comments: TAKE 2 TABLETS BY MOUTH EVERY DAY venlafaxine 75 mg capsule,extended release 24hr 75 mg PO QDAY venlafaxine 150 mg capsule,extended release 24hr 150 mg PO QDAY triamcinolone acetonide 0.5 % cream 1 applic topical BID Qty: 15 0RF bupropion HCl 150 mg tablet extended release 24 hr 150 mg PO QAM labetalol 200 mg tablet 100 mg PO BID levetiracetam [Keppra] 1,000 mg tablet 1,000 mg PO BID enoxaparin [Lovenox] 100 mg/mL syringe 100 mg subcut Q12H Qty: 10 1RF mirtazapine 7.5 mg tablet 7.5 mg PO QPM methotrexate sodium 25 mg/mL solution subcut furosemide [Lasix] 20 mg tablet 20 mg PO QDAY Qty: 90 3RF losartan 100 mg tablet 100 mg PO DAILY Qty: 90 1RF warfarin 5 mg tablet 5 mg PO QDAY Qty: 150 0RF Protocol: Dose Management Condition: Friday Dose/Route: 7.5 mg Instruction: 1.5 x 5 mg tablets Condition: Friday Dose/Route: 10 mg Instruction: 2 x 5 mg tablets Condition: Friday Dose/Route: 7.5 mg Instruction: 1.5 x 5 mg tablets Condition: Friday Dose/Route: 10 mg Instruction: 2 x 5 mg tablets Condition: Dose/Route: 7.5 mg Instruction: 1.5 x 5 mg tablets Condition: Friday Dose/Route: 10 mg Instruction: 2 x 5 mg tablets Condition: Friday Dose/Route: 7.5 mg Instruction: 1.5 x 5 mg tablets Protocol Text: Adjustment Start Date: Friday08/11/23 INR Value: 2.7 INR Date: 08/11/23 Recheck Date: 08/25/23 Rx Instructions: 7.5mg on M//, 10mg the rest of the week Follow Up/Referrals: Gale Garcia MD [Primary Care Provider] - Stand Alone Forms: [employer] Info Instructions
== END 2023-08-12 10:07 | disposition home or self-care (01) ==
PROVIDERS: Emergency Provider Emergency Medicine; PCP Internal Medicine
DX: Z09 Encounter for follow-up examination after completed treatment for conditions other than malignant neoplasm (principal); Z98.890 Other specified postprocedural states
CPT/HCPCS: 70450; 99283; 99284

== ENCOUNTER 2023-11-17 13:38 | Outpatient (CLI) | payer MEDICARE, BC, SELFPAY | END 2023-11-17 13:39 | disposition home or self-care (01) | LOC: NFLDREF 11-18 13:38 | PROVIDERS: PCP Internal Medicine; Referring Provider Internal Medicine; Visit Provider Internal Medicine | DX: Z79.01 Long term (current) use of anticoagulants (principal); Z51.81 Encounter for therapeutic drug level monitoring | CPT/HCPCS: 85610 ==

== ENCOUNTER 2023-12-16 10:10 | Outpatient (CLI) | payer MEDICARE, BC, SELFPAY | END 2023-12-16 10:11 | disposition home or self-care (01) | LOC: NFLDREF 10:20 | PROVIDERS: PCP Internal Medicine; Visit Provider Internal Medicine | DX: Z95.2 Presence of prosthetic heart valve (principal); Z79.01 Long term (current) use of anticoagulants; Z51.81 Encounter for therapeutic drug level monitoring; Z12.5 Encounter for screening for malignant neoplasm of prostate | CPT/HCPCS: 85610; G0103 ==

== ENCOUNTER 2024-01-27 14:01 | Emergency (ER) | payer MEDICARE, BC, SELFPAY ==
[2024-01-27] VITALS (7 sets, daily range): BP systolic 99–128; BP diastolic 61–80; PULSE 76–88; RESP 18; TEMP 36.9; O2SAT 92–95; BMI 32.5
--- NOTE | 2024-01-27 14:46 | CRLHL7_ITS ---
For Patients: As a result of the Century Cures Act, medical imaging exams and procedure reports are released immediately into your electronic medical record. You may view this report before your referring provider. If you have questions, please contact your health care provider. INDICATION: Blurred vision, lightheaded TECHNIQUE: Non-contrast CT of the head is submitted. Comparison is made to the CT brain dated 03/31/2023. FINDINGS: Redemonstrated postsurgical changes of left frontoparietal craniotomy. The ventricles, sulci and gyri are of normal size, shape and contour. Midline structures are centrally located. No convincing evidence of intra- or extra-axial fluid collections. Mild mucosal thickening in the partially visualized maxillary sinuses. Bilateral temporomandibular joint arthrosis. IMPRESSION: No radiographic evidence of acute intracranial abnormalities. Please note that all CT scans at this facility use dose modulation, iterative reconstruction, and/or weight-based dosing when appropriate to reduce radiation dose to as low as reasonably achievable. Dictated by Oneal Vega MD @ 01/27/2024 3:15:29 PM (Electronically Signed)
--- NOTE | 2024-01-27 14:47 | ED.GENADULT ---
HPI - General Adult General Chief complaint: Eye Problems Stated complaint: Dizzy, disoriented-had stroke past, sent from Time Seen by Provider: 01/27/24 14:20 History of Present Illness HPI narrative: This 69-year-old male was at urgent care and was sent here for further evaluation. He states that he woke up this morning feeling some blurry vision in his peripheral vision and felt some lightheadedness. He arrived at urgent care and was noted to have a systolic blood pressure of 99. He does take several antihypertensive medications. He does not report any speech changes except for a hoarse voice and does not have any neurologic deficits. He does have a history of bilateral subdural hematomas that occurred about a year ago and he did have a craniotomy to treat those findings. He does not report a headache. Related Data Home Medications ?Medication ?Instructions ?Recorded ?Confirmed Medical Marijuana PO 11/22/21 01/27/24 acetaminophen 500 mg tablet 1,000 mg PO .Daily as needed PRN 11/22/21 01/27/24 atorvastatin 40 mg tablet 40 mg PO DAILY 11/22/21 01/27/24 cholecalciferol (vitamin D3) 25 2,000 unit PO DAILY 11/22/21 01/27/24 mcg (1,000 unit) tablet golimumab IV .[id number] 11/22/21 01/27/24 lansoprazole 30 mg capsule,delayed 30 mg PO DAILY PRN 11/22/21 01/27/24 release folic acid 1 mg tablet 2 mg PO QDAY 04/22/22 01/27/24 venlafaxine 150 mg 150 mg PO QDAY 04/22/22 01/27/24 capsule,extended release 24 hr venlafaxine 75 mg capsule,extended 75 mg PO QDAY 04/22/22 01/27/24 release 24 hr methotrexate sodium 25 mg/mL mg subcut 12/03/22 01/27/24 injection solution mirtazapine 7.5 mg tablet 7.5 mg PO QPM 12/03/22 01/27/24 bupropion HCl 150 mg 24 hr tablet, 150 mg PO QAM 02/28/23 01/27/24 extended release labetalol 200 mg tablet 400 mg PO TID 12/16/23 01/27/24 triamcinolone acetonide 0.5 % 1 applic topical BID PRN 12/16/23 01/27/24 topical cream desvenlafaxine succinate 50 mg 50 mg PO DAILY 01/27/24 01/27/24 tablet,extended release 24 hr semaglutide (weight loss) 1.7 1.7 mg subcut 01/27/24 mg/0.75 mL subcutaneous pen injector (Wilbur) Previous Rx's ?Medication ?Instructions ?Recorded furosemide 20 mg tablet (Lasix) 20 mg PO QDAY #90 tabs 03/14/22 warfarin 5 mg tablet 5 mg PO QDAY #150 tabs 06/16/23 losartan 100 mg tablet 100 mg PO DAILY #90 tabs 12/18/23 Allergies Allergy/AdvReac Type Severity Reaction Status Date / Time No Known Drug Allergies Allergy Verified 01/27/24 12:57 Review of Systems Status of ROS: Reports: 10 or more systems reviewed and unremarkable except as noted in History and below Narrative: Constitutional: No fevers, no weight gain or loss. Eyes: No discharge. HENT: No congestion, no sore throat, no ear pain. Cardiovascular: No chest pain, no palpitations. Respiratory: No shortness of breath, no wheezes, no cough. Gastrointestinal: No abdominal pain, no vomiting, no diarrhea. Genitourinary: No dysuria, no hematuria. Musculoskeletal: Normal range of motion. Skin: No rashes, no pruritis. Neurological: No dizziness, weakness, sensory change, speech change. Endo/Heme/Allergies: No bruising or bleeding. No polydipsia. Pysch: no suicidality, no anxiety, no insomnia. All other systems reviewed and are negative. [facility] Medical History (Updated 01/27/24 @ 15:55 by Juan Reyes MD) History of TIA (transient ischemic attack) ?Z86.73 - Personal history of transient ischemic attack (TIA), and cerebral infarction without residual deficits (ICD-10) History of subdural hematoma ?Z86.79 - Personal history of other diseases of the circulatory system (ICD-10) History of Hodgkin's lymphoma ?Z85.71 - Personal history of Hodgkin lymphoma (ICD-10) Surgical History (Updated 08/27/23 @ 00:01 by Mckayla Lazo) History of craniotomy ?Z98.890 - Other specified postprocedural states (ICD-10) History of aortic dissection ?Z86.79 - Personal history of other diseases of the circulatory system (ICD-10) Status post aortic valve replacement ?Z95.2 - Presence of prosthetic heart valve (ICD-10) History of colonoscopy ?Z98.890 - Other specified postprocedural states (ICD-10) History of aortic valve repair ?Z98.890 - Other specified postprocedural states (ICD-10) ?Z86.79 - Personal history of other diseases of the circulatory system (ICD-10) History of ankle surgery ?Z98.890 - Other specified postprocedural states (ICD-10) History of incisional hernia repair ?Z98.890 - Other specified postprocedural states (ICD-10) ?Z87.19 - Personal history of other diseases of the digestive system (ICD-10) History of arthroscopy of shoulder ?Z98.890 - Other specified postprocedural states (ICD-10) History of surgery on wrist ?Z98.890 - Other specified postprocedural states (ICD-10) History of cataract surgery ?Z98.49 - Cataract extraction status, unspecified eye (ICD-10) History of colectomy ?Z90.49 - Acquired absence of other specified parts of digestive tract (ICD-10) History of uvulectomy ?Z90.89 - Acquired absence of other organs (ICD-10) History of vasectomy ?Z98.52 - Vasectomy status (ICD-10) Status post aortic aneurysm repair ?Z98.890 - Other specified postprocedural states (ICD-10) ?Z86.79 - Personal history of other diseases of the circulatory system (ICD-10) Social History (Updated 12/16/23 @ 10:56 by Promise Ricardo ~ [facility]) What is your current living situation?: I presently have a place to live Problems where you live: no known problems In the past 12 months, utilities in danger of being shut off: no In past 12 months, lack of transportation kept you from medical appts, meetings, work, or getting things needed for daily living: no In the past 12 mos, have been you worried that your food would run out before you had money to buy more?: never true In the past 12 mos, the food you bought just didn't last and you didn't have money to buy more?: never true Smoking Status: Former smoker Do you use any of these nicotine containing products: None Second hand tobacco smoke exposure: No How often do you have a drink containing alcohol: 4 or more times a week How many standard drinks containing alcohol do you have on a typical day: 1 or 2 How often do you have six or more drinks on one occasion: Never AUDIT-C Alcohol total score: 4 Non-prescribed substance use: denies use Non-prescribed substance use details: marijuana gummies for psoriatic arthritis nightly. How often does anyone, including family, friends and others, physically hurt you: never How often does anyone, including family, friends and others, insult or talk down to you: never How often does anyone, including family, friends and others, threaten you with harm: never How often does anyone, including family, friends and others, scream or curse at you: never Little interest or pleasure in doing things: several days Feeling down, depressed, or hopeless: several days service: No Exam Narrative: Exam Narrative: Constitutional: Well-developed, well-nourished, no acute distress. HEENT: Normocephalic, atraumatic. Neck: Normal range of motion. Nontender. Supple. Heart: Regular. No murmurs. Normal rate. Intact distal pulses. Lungs: Clear to auscultation. No chest discomfort. No wheezes, rhonchi, or rales. Abdomen: Normal bowel sounds. Nontender. No rebound tenderness. Genitalia: Deferred. Back: No midline tenderness. Normal range of motion. Extremities: Normal range of motion. No injury. Skin: Intact. No rash. Warm. No erythema or pallor. Neurologic: No altered sensation. No weakness. Alert and oriented. No facial asymmetry. Tongue is midline. [id number] is normal. No pronator drift. Hod Carrier strength is equal bilaterally. Able to raise each leg from the bed. Psychiatric: No suicidality. No anxiety or depression. No insomnia. Nursing notes and vitals signs are reviewed. Const: Vital Signs, click to edit/add: Vital Signs - 24 hr 01/27/24 14:21 01/27/24 14:31 01/27/24 14:32 Temperature 98.4 F Pulse Rate 79 83 Pulse Rate [Pulse Oximeter] 88 Respiratory Rate 18 Blood Pressure 123/68 Blood Pressure [Ri ght Upper Arm] 99/61 Pulse Oximetry 95 95 93 Oxygen Delivery Me thod Room Air Course Vital Signs Vital signs: Initial Vital Signs Temperature 98.4 F 01/27/24 14:21 Temperature Source Temporal Artery Scan 01/27/24 14:21 Pulse Rate 88 01/27/24 14:21 Respiratory Rate 18 01/27/24 14:21 Blood Pressure 99/61 01/27/24 14:21 Blood Pressure Mean 73 01/27/24 14:21 Pulse Oximetry 95 01/27/24 14:21 Oxygen Delivery Method Room Air 01/27/24 14:21 Vital Signs Temperature 98.4 F 01/27/24 14:21 Pulse Rate 88 01/27/24 14:21 Respiratory Rate 18 01/27/24 14:21 Blood Pressure 99/61 01/27/24 14:21 Pulse Oximetry 95 01/27/24 14:21 Oxygen Delivery Method Room Air 01/27/24 14:21 Temperature 98.4 F 01/27/24 14:21 Pulse Rate 83 01/27/24 14:32 Respiratory Rate 18 01/27/24 14:21 Blood Pressure 123/68 01/27/24 14:31 Pulse Oximetry 93 01/27/24 14:32 Oxygen Delivery Method Room Air 01/27/24 14:21 Medical Decision Making MDM Narrative Medical decision making narrative: This patient comes in reporting some blurry vision and came from urgent care were was noted that his blood pressure was 99/55. On arrival here his systolic pressure was 128. This was checked a few more times and remained around 120. CT scan of his head is obtained and shows no acute findings. The patient states that he is feeling better. He had labs drawn at Urgent Care and these returned with reassuring results. I did check an INR today and it is a bit elevated at 3.87. He will hold this medicine this evening and follow up with INR clinic. The patient feels okay to return home. Lab Data Labs: Lab Results 01/27/24 Range/Units 15:00 INR 3.87 H (0.91-1.10) Imaging Data CT scan - head: Radiologist's impression: FINDINGS: Redemonstrated postsurgical changes of left frontoparietal craniotomy. The ventricles, sulci and gyri are of normal size, shape and contour. Midline structures are centrally located. No convincing evidence of intra- or extra-axial fluid collections. Mild mucosal thickening in the partially visualized maxillary sinuses. Bilateral temporomandibular joint arthrosis. IMPRESSION: No radiographic evidence of acute intracranial abnormalities. Discharge Plan Discharge Clinical Impression: Hypotensive episode Patient Disposition: Home, Self-Care Condition: Stable Additional Instructions: Continue current plans. Recheck blood pressures occasionally and follow-up with primary physician for ongoing management. Hold Coumadin this evening and follow up with INR clinic or primary physician for ongoing management of anticoagulants. Prescriptions: No Action atorvastatin 40 mg tablet 40 mg PO DAILY acetaminophen 500 mg tablet 1,000 mg PO .Daily as needed PRN Rx Instructions: NO MORE THAN 4000 MG/DAY cholecalciferol (vitamin D3) 25 mcg (1,000 unit) tablet 2,000 unit PO DAILY lansoprazole 30 mg capsule,delayed release(DR/EC) 30 mg PO DAILY PRN golimumab [Simponi ARIA] IV .[id number] Medical Marijuana PO folic acid 1 mg tablet 2 mg PO QDAY Patient Comments: TAKE 2 TABLETS BY MOUTH EVERY DAY venlafaxine 75 mg capsule,extended release 24hr 75 mg PO QDAY venlafaxine 150 mg capsule,extended release 24hr 150 mg PO QDAY bupropion HCl 150 mg tablet extended release 24 hr 150 mg PO QAM labetalol 200 mg tablet 400 mg PO TID Rx Instructions: 400mg morning, noon and night mirtazapine 7.5 mg tablet 7.5 mg PO QPM methotrexate sodium 25 mg/mL solution subcut triamcinolone acetonide 0.5 % cream 1 applic topical BID PRN desvenlafaxine succinate 50 mg tablet extended release 24 hr 50 mg PO DAILY Wegovy 1.7 mg/0.75 mL pen injector 1.7 mg subcut furosemide [Lasix] 20 mg tablet 20 mg PO QDAY Qty: 90 3RF warfarin 5 mg tablet 5 mg PO QDAY Qty: 150 0RF Protocol: Dose Management Condition: Friday Dose/Route: 7.5 mg Instruction: 1.5 x 5 mg tablets Condition: Friday Dose/Route: 10 mg Instruction: 2 x 5 mg tablets Condition: Friday Dose/Route: 7.5 mg Instruction: 1.5 x 5 mg tablets Condition: Friday Dose/Route: 10 mg Instruction: 2 x 5 mg tablets Condition: Dose/Route: 7.5 mg Instruction: 1.5 x 5 mg tablets Condition: Friday Dose/Route: 10 mg Instruction: 2 x 5 mg tablets Condition: Friday Dose/Route: 7.5 mg Instruction: 1.5 x 5 mg tablets Protocol Text: Adjustment Start Date: Friday12/17/23 INR Value: 2.99 INR Date: 12/16/23 Recheck Date: 01/16/24 Rx Instructions: 7.5mg on //, 10mg the rest of the week losartan 100 mg tablet 100 mg PO DAILY Qty: 90 0RF Follow Up/Referrals: Gale Garcia MD [Primary Care Provider] - Stand Alone Forms: [employer] Info Instructions
--- OUTSIDE RECORDS SUMMARY | 2024-01-27 15:23 | XMS_ITS | Clinical Summary ---
Author Organization [employer] Address Jesus Alberto[address] [place] [id number] Phone Care Team Providers Care Commercial Finance Analyst Name Role Phone Gale Garcia MD Primary Care Provider Source Comments [employer] is fully rolled out on [employer]. 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[facility]) 04/02/2023 Left carpal tunnel syndrome 04/02/2023 Pain in left finger(s) 04/02/2023 Psoriasis 04/02/2023 Sleep apnea 04/02/2023 Acute subdural hematoma ([facility]) 04/02/2023 Obesity, unspecified 03/19/2023 Subdural hematoma ([facility]) 03/05/2023 Male erectile dysfunction, unspecified 3 Unspecified osteoarthritis, unspecified site Drug induced constipation 11/07/2020 Pain in joint 11/07/2020 Other specified complication s of surgical and medical care, not elsewhere classified, subsequent encounter 06/22/2020 Hodgkin lymphoma, unspecifie d, lymph nodes of axilla and upper limb ([facility]) 05/10/2020 Other specified joint disorders, right ankle and foot 11/23/2019 Primary osteoarthritis, right ankle and foot 09/2019 Overview: Added automatically from request for surgery [id number] Personal history of other di seases of the circulatory system 03/23/2018 Pain in left wrist 10/08/2017 Overview: Added automatically from request for surgery [id number] Peyronie's disease 12/04/2016 Dilated aortic root ([facility]) 03/04/2016 Presence of prosthetic heart valve 04/28/2015 Acute delirium 03/06/2015 Abdominal aortic aneurysm dissection ([facility]) 1 05/02/2014 Arthropathic psoriasis, unspecified ([facility]) Chronic pain syndrome 10/21/2013 Overview: Pain Dx: psoriatic arthritis Preferred Pharmacy: [facility] Comments: Opioid contract renewed 10/21/13 mgr. Anxiety state 01/28/2013 Recurrent major depression in partial remission ([facility]) 01/28/2013 Osteoarthritis of foot 08/31/2012 S/P shoulder [...] Colonoscopy 2007 polyps. 03/25 normal. Next 2016 roasterman (current) use of anticoagulants 2003 Overview: Overview: [...] Quadrivalent 02/20/2023,03/05/2022 Influenza Vaccine, Unspecified 01/25/2015 Novel [id number], all formulations 05/10/2009 Pneumococcal Conjugate, 13 - [...] Comments Blood Pressure 113/70 06/11/2023 10:10 AM SUPERVISOR SCREEN MAKING Pulse 84 06/11/2023 10:10 AM SUPERVISOR SCREEN MAKING Temperature 36 ??C (96.8 ??F) 03/19/2023 11:08 AM SUPERVISOR SCREEN MAKING Respiratory Rate 18 03/19/2023 11:08 AM SUPERVISOR SCREEN MAKING Oxygen Saturation 98% 03/14/2023 10:53 AM SUPERVISOR SCREEN MAKING Inhaled Oxygen Concentration - - Weight 108.9 kg (240 lb) 06/11/2023 10:10 AM SUPERVISOR SCREEN MAKING Height 175.3 cm (5' 9) 03/05/2023 10:00 PM SUPERVISOR SCREEN MAKING Body Mass Index 35.44 03/05/2023 10:00 PM SUPERVISOR SCREEN MAKING Plan of Treatment Health Maintenance Due Date [...] (AAA) Screening 2022 Depression Management 09/10/2023 03/12/2023 Imm: COVID-19 ( season) 2023 02/20/2023, 03/05/2022, 08/07/2021, Additional history exists Imm: Flu (#1) 12/14/2023 02/20/2023, 02/13, 01/17/2021, Additional history exists Lipid Screening 03/13/2028 03/13/2023, 07/19/2022 Imm: DTaP/Tdap (5 - Td or Tdap) 12/23/2032 12/23/2022, 04/17/2012, 07/12/2003, Additional history exists Imm: Zoster Completed 06/16/2018, 04/09/2018 Imm: Pneumonia greater than 65 years Completed 12/03/2022 Imm: HPV Aged Out No longer eligi ble based on patient's age to complete this topic Imm: HepA Aged Out No longer eligi ble based on patient's age to complete this topic Imm: HepB Aged Out No longer eligi ble based on patient's age to complete this topic Imm: Hib Aged Out No longer eligi ble based on patient's age to complete this topic Imm: Meningitis Aged Out No longer el igible based on patient's age to complete this topic Medical Devices Implanted Type Area General Store Manager Device Identifier Shelf Expiration Date Model / Serial / Lot Enterprise Hole Cover, 17mm [id number] Implanted:Qty: 1 on 03/08/2023 by Jose Mims MD at [facility] Plate Left: Skull SYNTHES [facility] [id number] / / Square Box Plate, 4 Hole [id number] Implanted:Qty: 2 on 03/08/2023 by Jose Mims MD at [facility] Plate Left: Skull Effdon [facility] [id number] / / 4mm [id number] Implanted:Qty: 14 on 03/08/2023 by Jose Mims MD at [facility] Screw/Gary Left: Brain SYNTHES G3 [id number] / / Description:13 screws implan anitha, one screw wasted Procedures Procedure Name Priority Date/Time Associated Diagnosis Comments PANEL LIPID Routine 03/13/2023 6:42 AM SUPERVISOR SCREEN MAKING from Last 3 Months or Most Recently Relevant to Health Maintenance Results * PANEL LIPID (03/13/2023 6:42 AM SUPERVISOR SCREEN MAKING) Cholesterol 125 <=200 mg/dL [facility] Comment: Interpretive Data <200 Desirable 200-239 Borderline high >=240 High HDL 45 >=40 mg/dL [facility] Comment: Interpretive Data Normal > 40 Male > 50 Female Triglyceride 79 <=150 mg/dL [facility] Comment: Interpretive Data <150 Normal 150-199 Borderline high 200-499 High >=500 Very high Calc LDL 64 <=100 mg/dL [facility] Comment: Interpretive Data <100 Desirable 100-129 Above desirable 130-159 Borderline high 160-189 High >=190 Very high Non-HDL Cholesterol Calculated 80 <=130 mg/dL [facility] Comment: Interpretive Data <130 Desirable 130-159 Above desirable 160-189 Borderline high 190-219 High >=220 Very high Blood 03/13/2023 6:42 AM SUPERVISOR SCREEN MAKING 03/13/2023 6:46 AM SUPERVISOR SCREEN MAKING Narrative [facility] - 03/13/2023 7:58 AM SUPERVISOR SCREEN MAKING Fasting: No Jose Mims MD LABORATORY [facility] [address] [id number] from Last 3 Months or Most Recently Relevant to Health Maintenance Advance Directives For more information, please contact: [phone] * Full Code (Latest Code Status on File) Date Activated Date Inactivated Comments 03/05/2023 11:06 PM 03/14/2023 8:12 PM Question Answer Comments Does the Patient have prefer ences regarding life sustaining measures (these options only apply when the patient has a pulse): No Discussed Code Status With Whom? Not discussed Care Teams Commercial Finance Analyst Relationship Specialty Start Date End Date Gale Garcia MD [address] [place] [address] PCP - General Internal Medicine 03/10/23
--- OUTSIDE RECORDS SUMMARY | 2024-01-27 15:23 | XMS_ITS | Referral Summary ---
Author Organization [employer] Address [address] [place] [phone] Phone Care Team Providers Care Test Puller Name Role Phone Gale Garcia MD Primary Care Provider [phone] Source Comments Format Dynamics is fully rolled out on [employer]. Last update 09/16/08.[employer] Allergies No known active allergies Medications * [...] 04/02/2023 Sleep apnea 04/02/2023 Acute subdural hematoma ([facility]) 04/02/2023 Obesity, unspecified 03/19/2023 Subdural hematoma ([facility]) 03/05/2023 Male erectile dysfunction, unspecified 3 Unspecified osteoarthritis, unspecified site Drug induced constipation 11/07/2020 Pain in joint 11/07/2020 Other specified complication s of surgical and medical care, not elsewhere classified, subsequent encounter 06/22/2020 Hodgkin lymphoma, unspecifie d, lymph nodes of axilla and upper limb ([facility]) 05/10/2020 Other specified joint disorders, right ankle and foot 11/23/2019 Primary osteoarthritis, right ankle and foot 09/2019 Overview: Added automatically from request for surgery [id number] Personal history of other di seases of the circulatory system 03/23/2018 Pain in left wrist 10/08/2017 Overview: Added automatically from request for surgery [id number] Peyronie's disease 12/04/2016 Dilated aortic root ([facility]) 03/04/2016 Presence of prosthetic heart valve 04/28/2015 Acute delirium 03/06/2015 Abdominal aortic aneurysm dissection ([facility]) 1 05/02/2014 Arthropathic psoriasis, unspecified ([facility]) Chronic pain syndrome 10/21/2013 Overview: Pain Dx: psoriatic arthritis Preferred Pharmacy: [facility] Comments: Opioid contract renewed 10/21/13 mgr. Anxiety state 01/28/2013 Recurrent major depression in partial remission ([facility]) 01/28/2013 Osteoarthritis of foot 08/31/2012 S/P shoulder [...] Colonoscopy 2007 polyps. 03/25 normal. 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) use of anticoagulants 2003 Overview: Overview: [...] Quadrivalent 02/20/2023,03/05/2022 Influenza Vaccine, Unspecified 01/25/2015 Novel [id number], all formulations 05/10/2009 Pneumococcal Conjugate, 13 - [...] Comments Blood Pressure 113/70 06/11/2023 10:10 AM BLADE BONER Pulse 84 06/11/2023 10:10 AM BLADE BONER Temperature 36 ??C (96.8 ??F) 03/19/2023 11:08 AM BLADE BONER Respiratory Rate 18 03/19/2023 11:08 AM BLADE BONER Oxygen Saturation 98% 03/14/2023 10:53 AM BLADE BONER Inhaled Oxygen Concentration - - Weight 108.9 kg (240 lb) 06/11/2023 10:10 AM BLADE BONER Height 175.3 cm (5' 9) 03/05/2023 10:00 PM BLADE BONER Body Mass Index 35.44 03/05/2023 10:00 PM BLADE BONER Plan of Treatment Not on file Medical Devices Implanted Type Area Couture Dressmaker Device Identifier Shelf Expiration Date Model / Serial / Lot [place] Hole Cover, 17mm [id number] Implanted:Qty: 1 on 03/08/2023 by Jose Mims MD at [facility] Plate Left: [employer] [id number] / / Square Box Plate, 4 Hole [id number] Implanted:Qty: 2 on 03/08/2023 by Jose Mims MD at [facility] Plate Left: Skull [employer] [facility] [id number] / / 4mm [id number] Implanted:Qty: 14 on 03/08/2023 by Jose Mims MD at [facility] Screw/[place] Left: [employer] [id number] / / Description:13 screws implan anitha, one screw wasted Procedures Procedure Name Priority Date/Time Associated Diagnosis Comments PANEL LIPID Routine 03/13/2023 6:42 AM BLADE BONER from Last 3 Months or Most Recently Relevant to Health Maintenance Results * PANEL LIPID (03/13/2023 6:42 AM BLADE BONER) Cholesterol 125 <=200 mg/dL [facility] Comment: Interpretive Data <200 Desirable 200-239 Borderline high >=240 High HDL 45 >=40 mg/dL [facility] Comment: Interpretive Data Normal > 40 Male > 50 Female Triglyceride 79 <=150 mg/dL [facility] Comment: Interpretive Data <150 Normal 150-199 Borderline high 200-499 High >=500 Very high Calc LDL 64 <=100 mg/dL [facility] Comment: Interpretive Data <100 Desirable 100-129 Above desirable 130-159 Borderline high 160-189 High >=190 Very high Non-HDL Cholesterol Calculated 80 <=130 mg/dL [facility] Comment: Interpretive Data <130 Desirable 130-159 Above desirable 160-189 Borderline high 190-219 High >=220 Very high Blood 03/13/2023 6:42 AM BLADE BONER 03/13/2023 6:46 AM BLADE BONER Narrative [facility] - 03/13/2023 7:58 AM BLADE BONER Fasting: No Jose Mims MD LABORATORY [facility] [place] [facility] [address] [place] [phone] from Last 3 Months or Most Recently Relevant to Health Maintenance Advance Directives For more information, please contact: [phone] * Full Code (Latest Code Status on File) Date Activated Date Inactivated Comments 03/05/2023 11:06 PM 03/14/2023 8:12 PM Question Answer Comments Does the Patient have prefer ences regarding life sustaining measures (these options only apply when the patient has a pulse): No Discussed Code Status With Whom? Not discussed Care Teams Test Puller Relationship Specialty Start Date End Date Gale Garcia MD [address] [place] [address] PCP - General Internal Medicine 03/10/23
--- OUTSIDE RECORDS SUMMARY | 2024-01-27 15:24 | XMS_ITS ---
Author Organization [facility] Address [address] [place] [address] Care Team Providers Care Clinical Evaluator Name Role Phone Elsewhere, Pcp Primary Care Provider Unavailabl e Active Problems * This document contains information received from the source organization and may not represent a complete record from that organization. Problem Noted Date Diagnosed Date Obesity Body Mass Index 30-39.9 Adult 03/19/2023 Dysfunction Erectile 05/22/2022 Arthritis Ankle 10/09/2021 Pain Joint 11/07/2020 Drug Induced Constipation 11/07/2020 Seroma Subsequent 06/22/2020 Hodgkin Lymphoma Unspecified Lymph Nodes Of Axilla And Upper Limb 05/10/2020 Cancer Staging:Clinical stage from 01/28/2021:Stage II(Hodgkin lymphoma, A - Asymptomatic) - Unsigned Foot Joint Disorder Right 11/23/2019 Primary Osteoarthritis Foot Right 10/18/2019 Overview (10/18/2019): Added automatically from request for surgery [id number] Aneurysm Thoracic Aorta Personal History 018 Pain Wrist Left 10/08/2017 Overview (10/08/2017): Added automatically from request for surgery [id number] Dilated Aortic Root 03/04/2016 Hypertension Essential Primary 03/04/2016 Prosthesis Aortic Valve 04/28/2015 Arthritis Psoriatic 05/03/2014 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 4 of 4 cycles started Radiation Treatments * Plan Last Treated On Elapsed Days Fractions Treated Prescribed Fraction Dose Prescribed Total Dose F1_Rt Axilla 02/21/2021 20 15 of 15 200 cGy 3,000 cGy Reference Point Last Treated On Elapsed Days Session Dose Total Dose [id number] 02/21/2021 20 200 cGy 3,000 cGy Lifetime [...] Date Replacement Heart Valve Tissue 07/13/2004 03/19/2018 Overview (03/17/2018): Overview: [facility] AVR and ascending aortic graft on 07/14. On lifelong anticoagulation.
--- OUTSIDE RECORDS SUMMARY | 2024-01-27 15:24 | XMS_ITS | Clinical Summary ---
Author Organization [email or web address] [facility] Address [place], [place] [address] Care Team Providers Care Motor Setter Name Role Phone Pcp, No Primary Care [...] Comments Blood Pressure 126/75 04/02/2017 10:53 AM SHIPWRIGHT Pulse 64 04/02/2017 10:53 AM SHIPWRIGHT Temperature 36.9 ??C (98.5 ??F) 04/02/2017 1 0:53 AM SHIPWRIGHT Respiratory Rate 16 12/04/2016 8:14 AM CDT Oxygen Saturation 95% 04/02/2017 10: 53 AM SHIPWRIGHT Inhaled Oxygen Concentration - - Weight 106.5 kg (234 lb 12.8 oz) 04/02/2017 10:53 AM SHIPWRIGHT Patient weighed with shoes on. Height - [...] PCV) 022 COVID-19 vaccine series (2 - season) 2020 Influenza for age 65+ 12/14/2023 01/27/2017 Care Teams Motor Setter Relationship Specialty Start Date End Date Pcp, No . PCP - General 10/21/16
--- OUTSIDE RECORDS SUMMARY | 2024-01-27 15:24 | XMS_ITS | Encounter Summary ---
Author Organization [facility] Address [address], [place] [address] Care Team Providers Care Client Success Specialist Name Role Phone Gale Garcia MD Primary Care Provider [phone] Encounter Details Date Type Department Care Team (Late st Contact Info) Description 08/27/2016 Consent for Procedure/Treatme [facility] [place] [address] [place] [address] Provider, Not On File [address] [place] [phone] CONSENT FOR ANESTHESIA Social History Tobacco Use [...] on filedocumented in this encounter Care Teams Client Success Specialist Relationship Specialty Start Date End Date Gale Garcia MD [address] [place] [address] PCP - General Internal Medicine 08/23/16 documented as of this encounter
--- OUTSIDE RECORDS SUMMARY | 2024-01-27 15:24 | XMS_ITS | Encounter Summary ---
Author Organization [facility] Address [address] [place] [address] Care Team Providers Care Volunteer Patient Representative Name Role Phone Elsewhere, Pcp Primary Care Provider Unavailabl e Encounter Details Date Type Department Care Team (Late st Contact Info) Description 01/01/2024 Orders Only Division of Rheumatology in [place], [place] [address] [place] [phone] Bárbara Soto, JASON, C.N.P. [address] [place] [phone] Social History Tobacco Use Types Packs/Day Years Used Date Smoking Tobacco: Never Smokeless Tobacco: Never Alcohol Use Standard Drinks/Week Comments Yes 2 (1 standard drink = 0.6 oz pur e alcohol) [facility] Utilities Answer Date Recorded In the past 12 months has e [employer], gas, oil, or water [employer] threatened to shut off services in your home? No 09/06/2023 Humiliation, Afraid, Rape, and Kick questionnair e [...] often do you attend chur ch or hinduism services? Never 07/16/2022 Do you belong to [...] and heating? Not hard at all 09/19/2022 [facility] [...] to strenuous exercise (like a brisk walk)? 2 days 09/06/2023 On average, how many minutes do you engage in exercise at this level? 30 min 09/06/2023 Hunger Vital Sign Answer Date Recorded Within the past 12 months, y ou worried that your food would run out before you got the money to buy more. Never true 09/06/19 24 Within the past 12 months, t he food you bought just didn't last and you didn't have money to get more. Never true 09/06/2023 PRAPARE - Transportation Answer Date Re corded In the past 12 months, has l ack of transportation kept you from medical appointments or from getting medications? No 08/13 In the past 12 months, has l ack of transportation kept you from meetings, work, or from getting things needed for daily living? No 09/06/2023 Nutrition Answer Date Recorded On average, how many serving s of fruits and vegetables do you eat per day (serving size is equal to 1 cup or approximately the size of a tennis ball)? 3-5 09/06/2023 Dental Answer Date Recorded Dental: Regular Dentist Yes 06/01/19 Employment Answer Date Recorded Employment status Retired 09/06/2023 Housing Stability Answer Date Recorded What is your living situation today? I have a [facility] place to live 09/06/2023 Education Answer Date Recorded What is the highest level of school you have completed or the highest degree you have received? Master's degree (e.g., MA, MS, Starla, MEd, TANK HOUSE OPERATOR HELPER, DEBRA) 09/16/2018 Sex and Gender Information Value Date Recorded Sex Assigned at Male 10/08/2017 8:25 AM CDT Legal Sex Male 10:56 PM SQUARE CUTTER Gender Identity Male 10/08/2017 8:25 AM CDT Sexual Orientation Straight 10/08/2017 8: 25 AM CDT documented as of this encounter Plan of Treatment Upcoming Encounters Date Type Department Care Team (Late st Contact Info) Description 02/26/2024 1:30 PM SQUARE CUTTER Infusion Department of Infusion Therapy in [address] [phone] Bárbara Soto, PRODUCTION PAINTER, C.N.P. [address] [place] [phone] 03/03/2024 9:00 AM SQUARE CUTTER Appointment Department of Laboratory Medicine in [address] [phone] Bárbara Soto APRN, C.N.P. [address] [place] [phone] 04/05/2024 10:30 AM SQUARE CUTTER Virtual Visit Division of Endocrinology in [place], [place] [address] [place] [phone] Get Ragland APRN, C.N.P., D.N.P. [address] [place] [phone] documented as of this encounter Visit Diagnoses Not on filedocumented in this encounter Additional Health Concerns Infection Onset Date Last Indicated Resolved Time Protective Environment 07/19/2022 07/19/2022 Assessment Noted Time PHQ-9 Depression Total Score: 0 01/01/20 16 12:53 PM CDT documented as of this encounter Care Teams Volunteer Patient Representative Relationship Specialty Start Date End Date Elsewhere, Pcp PCP - General Family Medicine 11/27/20 documented as of this encounter
--- OUTSIDE RECORDS SUMMARY | 2024-01-27 15:24 | XMS_ITS | Clinical Summary ---
Author Organization [facility] Address [address] [place] [address] Care Team Providers Care Salon Leader Name Role Phone Elsewhere, Pcp Primary Care Provider Unavailabl e Source Comments Patient records contain information from all sites at [facility]. For routine questions regarding patient records, call [phone] during business hours, M-F 8:00 AM - 5:00 PM Central Time. Record requests for emergency care only can be directed to [phone] at any time.[facility] Allergies No known active allergies Medications * This document contains information received from the source organization and may not represent a complete record from that organization. cholecalcifero l (VITAMIN D3) 50 mcg (2,000 Unit) capsule Take 2,000 Units by mouth daily. 05/02/19 15 Active amLODIPine (NORVASC) 10 mg tablet Take 10 mg by mouth daily. 03/11/20 15 Active venlafaxine XR (EFFEXOR-XR) 75 mg 24 hr capsule Take 75 mg by mouth daily. ALSO TAKES A 150 MG CAPSULE DAILY WITH BREAKFAST - 09/22/19 20 Active acetaminophen (TYLENOL) 500 mg tablet Take 1,000 mg by mouth every 6 (six) hours as needed for pain. Active sennosides-doc usate sodium (Senna with Docusate Sodium) 8.6-50 mg per tablet Take 1 tablet by mouth at bedtime as needed. For constipation 10/05/19 21 Active Additional Information Patient taking differently:1 tablet oral Bedtime PRN,constipation, (No instructions reported), Reported on 06/17/2023 loperamide (IMODIUM A-D) 2 mg tablet Take 1 mg by mouth 2 (two) times a day as needed for diarrhea. Active warfarin (Coumadin) 5 mg tablet Take 1.5-2 tablets (7.5-10 mg total) by mouth daily. 10 mg on , , Sat. 7.5 mg all other days 10/20/19 21 Active Additional Information Patient taking differently:7.5-10 mg oral Daily, 7.5 mg on Mondays, Wednesdays and Fridays - 10 mg the other days. omeprazole (PriLOSEC) [address] capsule Take 20 mg by mouth as needed. 11/25/19 12 Active venlafaxine XR (EFFEXOR-XR) 150 mg 24 hr capsule Take 150 mg by mouth daily with breakfast. ALSO TAKES A 75 MG CAPSULE DAILY WITH BREAKFAST - 08/06/19 22 Active sildenafiL (VIAGRA) 50 mg tablet Take 1 tablet (50 mg total) by mouth daily as needed for erectile dysfunction. 20 tablet 2 05/22/19 23 Active needle, disp, 27 gauge 27 gauge x 1/2 needleIndicati ons:Arthritis Psoriatic (HCC) For methotrexate injections. 12 each 2 09/27/19 23 Active SQ 1 Ml Injection KitIndications :Arthritis Psoriatic (HCC) For methotrexate injections 1 kit 3 3 12:45 PM CDT 09/27/19 23 Active mirtazapine (REMERON) 7.5 mg tablet Take 7.5 mg by mouth at bedtime. 01/17/20 23 Active enoxaparin (LOVENOX) 100 mg/mL injection Inject 100 mg under the skin as needed. 03/17/20 23 Active RX WELCOME PACKET-SPECIAL TY-OP ONLY Welcome packet 1 each 04/10/20 23 Active RX SIMPONI PATIENT KIT-OP ONLY SIMPONI PATIENT KIT 1 each 04/10/20 23 Active alcohol swabs (Alcohol Prep) pads, medicated As directed 100 each 04/10/20 Active RX 1/2 Gallon Sharps Container Sharps 1/2 Gallon Sharps Container 1 each 04/10/20 23 Active syringe with needle (BD Tuberculin Syringe) 1 mL 27 x 1/2 syringeIndicat ions:Arthritis Psoriatic (HCC) Inject 1 Syringe under the skin once a week. For use with weekly Methotrexate Injections. 25 each 1 05/14/19 24 Active losartan (COZAAR) 100 mg tablet Take 100 mg by mouth daily. Active doxycycline hyclate (VIBRA-TABS) 100 mg tablet Take 100 mg by mouth 2 (two) times a day. 09/28/19 23 Active triamcinolone (KENALOG) 0.5 % cream Apply 1 Application topically as needed. 11/08/19 23 Active methotrexate 25 mg/mL injectionIndic ations:Arthrit is Psoriatic (HCC) INJECT 0.7 ML (17.5 MG TOTAL) UNDER THE SKIN ONCE A WEEK. 10 mL 1 06/24/19 24 Active furosemide (LASIX) 20 mg tablet take 1 tablet by mouth every day 90 tablet 3 06/26/19 24 Active predniSONE (DELTASONE) 5 mg tabletIndicati ons:Arthritis Psoriatic (HCC) 4 tabs x 3 days, 3 tabs x 3 days, 2 tabs x 3 days, 1 tabs x 3 days, off 30 tablet 07/21/19 24 Active Additional Information Patient taking differently: As needed, 4 tabs x 3 days, 3 tabs x 3 days, 2 tabs x 3 days, 1 tabs x 3 days, off, Informant: Self, Reported on 09/11/2023 semaglutide (Wegovy) 2.4 mg/0.75 mL pen injector injectionIndic ations:Obesity Body Mass Index 30-39.9 Adult Inject 2.4 mg under the skin every 7 (seven) days. Follow prescriber's dose escalation instructions. 3 mL 11 07/23/19 24 Active folic acid 1 mg tabletIndicati ons:Arthritis Psoriatic (HCC) TAKE 2 TABLETS (2,000 MCG TOTAL) BY MOUTH DAILY 180 tablet 3 08/13/19 24 Active labetaloL (NORMODYNE) 100 mg tablet Take 1 tablet (100 mg total) by mouth 2 (two) times a day. 180 tablet 3 09/11/19 24 025 Active Additional Information Patient taking differently: 200 mgoral3 times daily, Reported on 11/28/2023 buPROPion XL (Wellbutrin XL) 150 mg 24 hr tablet Take 150 mg by mouth daily. Active celecoxib (CeleBREX) 100 mg capsuleIndicat ions:Arthritis Psoriatic (HCC) Take 1 capsule (100 mg total) by mouth 2 (two) times a day. 180 capsule 3 12/26/19 24 Active atorvastatin (Lipitor) 40 mg tablet take 1 tablet by mouth every day 90 tablet 3 01/16/20 24 Active atorvastatin (LIPITOR) 40 mg tablet TAKE 1 TABLET BY MOUTH EVERY DAY 90 tablet 3 02/07/20 23 024 Discontinued Active Problems Problem Noted Date Diagnosed [...] (10/18/2019): Added automatically from request for surgery [id number] Aneurysm Thoracic Aorta Personal History 018 Pain Wrist Left 10/08/2017 Overview (10/08/2017): Added automatically from request for surgery [id number] Dilated Aortic Root 03/04/2016 Hypertension Essential Primary 03/04/2016 Prosthesis Aortic Valve 04/28/2015 Arthritis Psoriatic 05/03/2014 [facility] (Current) Anticoagulant Treatment 12/2003 Overview (03/17/2018): Overview: Updated per 01/12/17 IMO import Pain Thumb Left Coronary Artery Disease Without Angina Pectoris Sleep Apnea Resolved Problems Problem Noted Date Diagnosed Date Resolved Date Replacement Heart Valve Tissue 07/13/2004 03/19/2018 Overview (03/17/2018): Overview: St. Shorty AVR and ascending aortic graft on 07/14. On lifelong anticoagulation. Encounters * This document contains information received from the source organization and may not represent a complete record from that organization. Date Type Department Care Team Description 01/16/2024 Refill Department of Cardiovascular Diseases in [place], [place] [address] [place] [phone] Ok Padilla M.D. Med Refill 01/01/2024 2:00 PM CDT Infusion Department of Infusion Therapy in [address] [phone] Bárbara Soto APRN, C.N.PRebecca Arthritis Psoriatic (HCC) (Primary Dx) 01/01/2024 Orders Only Division of Rheumatology in [address] [phone] Bárbara Soto APRN, C.N.P. 12/26/2023 2:45 PM CDT Office Visit Division of Rheumatology in [address] [phone] Bárbara Soto APRN, C.N.PRebecca Arthritis Psoriatic (HCC) (Primary Dx) 12/22/2023 Clinical Communication Division of Rheumatology in [address] [phone] Giulia Gayle R.N. Lab Monitoring (Methotrexate) 12/16/2023 8:30 AM CDT Clinical Communication Virtual Review in [address] [phone] Pre-visit Intake 12/02/2023 4:00 PM CDT Office Visit Division of Hematology in [address] [phone] Sole Read APRN, C.N.P., D.N.P. Hodgkin Lymphoma Unspecified Lymph Nodes Of Axilla And Upper Limb (HCC) (Primary Dx) 12/02/2023 11:23 AM CDT - 12/02/2023 11:59 PM CDT Hospital Encounter Department of Laboratory Medicine and Pathology, [facility], in [address] [address] Sole Read APRN, C.N.P., D.N.P. Hodgkin Lymphoma Unspecified Lymph Nodes Of Axilla And Upper Limb (HCC) Discharge Disposition: Home or Self Care 11/28/2023 8:30 AM CDT Clinical Communication Virtual Review in [place], [place] [address] [place] [address] Pre-visit Intake 11/09/2023 Orders Only Division of Rheumatology in [place], [place] [address] [place] [address] Bárbara Soto APRN, C.N.P. Arthritis Psoriatic (HCC) [...] drink = 0.6 oz pur e alcohol) [facility] Utilities Answer Date Recorded In the past 12 months has e [employer], gas, oil, or water [email or web address] threatened to shut off services in your [...] often do you attend chur ch or oriental orthodox services? Never 07/16/2022 Do you belong to [...] and heating? Not hard at all 09/19/2022 [facility] of Occupat ional Health - Occupational Stress [...] your living situation today? I have a [facility] place to live 09/06/2023 Education Answer Date Recorded What is the highest level of school you have completed or the highest degree you have received? Master's degree (e.g., MA, MS, Starla, MEd, [employer], DEBRA) 09/16/2018 Sex and Gender Information Value Date Recorded Sex Assigned at Male 10/08/2017 8:25 AM CDT Legal Sex Male 10:56 PM KIER PLEATER Gender Identity Male 10/08/2017 8:25 AM CDT Sexual Orientation Straight 10/08/2017 8: 25 AM CDT Last Filed Vital Signs Vital Sign Reading Time Taken Comments Blood Pressure 113/67 01/01/2024 1:49 PM CDT Pulse 84 01/01/2024 1:49 PM CDT Temperature 36.2 ??C (97.2 ??F) 01/01/2024 1:49 PM CD T Respiratory Rate 18 01/01/2024 1:49 PM CDT Oxygen Saturation 95% 01/01/2024 1:49 PM CDT Inhaled Oxygen Concentration - - Weight 101 kg (221 lb 12.5 oz) 01/01/2024 1:46 P M CDT Height 177 cm (5' 9.69) 12/26/2023 2:36 PM CDT Body Mass Index 32.11 12/26/2023 2:36 PM CDT Plan of Treatment Upcoming Encounters Date Type Department Care Team (Late st Contact Info) Description 02/26/2024 1:30 PM KIER PLEATER Infusion Department of Infusion Therapy in [address] [phone] Bárbara Soto APRN, C.N.P. [address] [place] [phone] 03/03/2024 9:00 AM KIER PLEATER Appointment Department of Laboratory Medicine in [address] [phone] Bárbara Soto APRN, C.N.P. [address] [place] [phone] 04/05/2024 10:30 AM KIER PLEATER Virtual Visit Division of Endocrinology in [place], [place] [address] [place] [phone] Get Ragland APRN, C.N.P., D.N.P. [address] [place] [phone] Health Maintenance Due Date Last Done Comments CT Colonography 1957 Cologuard 1957 FIT 1957 Hepatitis C Screening 1955 Sodium Level 01/24/2017 01/25/2016 Colonoscopy 04/14/2021 04/14/2011 (Perf ormed elsewhere) Colorectal Cancer Screening 04/14/2021 Depression Screening (Annual PHQ-2) 04/14/2023 Fall Risk Screen (Annual) 04/14/2023 COVID-19 Vaccine ( season) 2023 03/05/2022, 08/07/2021, 12/20/2020, Additional history exists Influenza Vaccine (#1) 2024 , 03/05/2022, 01/17/2021, Additional history exists Creatinine Level (Kidney Function Test) 12/01/2024 12/02/2023, 09/18/2023, 07/23/2023, Additional history exists Potassium Level 12/01/2024 12/02/2023, 05/15, 11/26/2022, Additional history exists Office Visit for Blood Pressure Check / Re-check 12/31/2024 01/01/2024 Fasting Glucose for Diabetes Screening 07/19/2025 07/19/2022, 01/08/2021, 12/25/2020, Additional history exists Lipid (Cholesterol) Screening 07/20/2027 07/19/2022, 01/25/2016, 04/14/2014 (Performed elsewhere) DTaP,Tdap,and Td Vaccines (3 - Td or Tdap) 12/23/2032 12/23/2022, 04/17/2012, 07/12/2003, Additional history exists Zoster Vaccines Completed 06/16/2018, 04/09/2018 Pneumococcal vaccine (65+ years) Completed 12/03/2022, 04/22/2013 RSV vaccine - (32-36 weeks) or 60+ years Completed 02/20/2023 HPV Vaccines Aged Out No longer eligi ble based on patient's age to complete this topic Medical Devices Implanted Type Area Customer Support Engineer Device Identifier Shelf Expiration Date Model / Serial / Lot Bonewax Implanted:Qty: 1 on 11/24/2019 by Curly Esparza M.D. at [facility] Bone or Tissue Right: Ankle Ethicon 09/12/2023 W31 / N/A / [id number] Conversions-Defa ult Historical Implant Device- 5 Implanted:2014 (Quantity not on file) Cardiac Stent Coronary Description:Device Status Te xt - Cardiac. 2 stents Conversions - Default Historical Implant Device-07/22/2002 Implanted:2002 (Quantity not on file) Cardiac Valve Prosthesis Aorta Description:St.Shorty (for bic uspid valve ) MR conditional 3T Device Status Text - CardValve. Scrw St Pthrd Nlck Lang 6.7x85 - [id number] Implanted:Qty: 2 on 11/24/2019 at [facility] Hardware e.g. pins/screws/r ods Right: Ankle Arthrex [id number] / / Clp Hrzn Ti 6 Clp Nirav - [id number] Implanted:Qty: 2 on 05/23/2020 by Eva Alicea M.D. at [facility] Hardware e.g. pins/screws/r ods [employer] [id number] / / Description:Biopsy marker Ocular Lens-04/14/2008 Implanted:2008 (Quantity not on file) Ocular Lens Bilateral: Eye Vascular Graft 2014 Vascular Graft Aorta Description:[place] Tag Endopro thesis graft places in descending aorta in 2014 at [facility] [place]. 3T Conditional at Normal Normal per MagResourkathryn. Vascular Graft--07/22/2002 Implanted:2002 (Quantity not on file) Vascular Graft Aorta Description:Device Status Te xt - CardValve. Procedures Procedure Name Priority Date/Time Associated Diagnosis Comments POTASSIUM, S/P Routine 12/02/2023 11:46 AM CDT Hodgkin Lymphoma Unspecified Lymph Nodes Of Axilla And Upper Limb (HCC) LACTATE DEHYDROGENASE (LD), S Routine 12/02/2023 11:46 AM CDT Hodgkin Lymphoma Unspecified Lymph Nodes Of Axilla And Upper Limb (HCC) CREATININE WITH EGFR, S/P Routine 12/02/2023 11:46 AM CDT Hodgkin Lymphoma Unspecified Lymph Nodes Of Axilla And Upper Limb (HCC) CBC WITH DIFFERENTIAL, B Routine 024 11:46 AM CDT Hodgkin Lymphoma Unspecified Lymph Nodes Of Axilla And Upper Limb (HCC) CALCIUM, TOT, S/P Routine 12/02/2023 11: 46 AM CDT Hodgkin Lymphoma Unspecified Lymph Nodes Of Axilla And Upper Limb (HCC) BILIRUBIN, TOT, S/P Routine 12/02/2023 1 1:46 AM CDT Hodgkin Lymphoma Unspecified Lymph Nodes Of Axilla And Upper Limb (HCC) ASPARTATE AMINOTRANSFERASE (AST), S/P Routine 12/02/2023 11:46 AM CDT Hodgkin Lymphoma Unspecified Lymph Nodes Of Axilla And Upper Limb (HCC) ALKALINE PHOSPHATASE, S/P Routine 12/02/2023 11:46 AM CDT Hodgkin Lymphoma Unspecified Lymph Nodes Of Axilla And Upper Limb (HCC) LIPID PANEL, S Routine 07/19/2022 10:40 AM CDT Dysfunction Erectile GLUCOSE, FASTING, S/P Routine 07/19/2022 10:39 AM CDT Dysfunction Erectile SODIUM, S/P Routine 01/25/2016 6:04 PM CDT from Last 3 Months or Most Recently Relevant to Health Maintenance Results * CBC with Differential, Blood (12/02/2023 11:46 AM CDT) Pathologist [facility] [place] Hemoglobin 14.1 13.2 - 16.6 g/dL 12/02/2023 12:56 PM CDT DTL Hematocrit 43.4 38.3 - 48.6 % 12/02/2023 12:56 PM CDT DTL Erythrocytes 4.60 4.35 - 5.65 x10(12)/L 12/02/2023 12:56 PM CDT DTL MCV 94.3 78.2 - 97.9 fL 12/02/2023 12:56 PM CDT DTL RBC Distrib Width 13.7 11.8 - 14.5 % 12/02/2023 12:56 PM CDT DTL Platelet Count 148 135 - 317 x10(9)/L 12/02/2023 12:56 PM CDT DTL Leukocytes 5.6 3.4 - 9.6 x10(9)/L 12/02/2023 12:56 PM CDT DTL Neutrophils 3.32 1.56 - 6.45 x10(9)/L 12/02/2023 12:56 PM CDT DHPM Lymphocytes 1.39 0.95 - 3.07 x10(9)/L 12/02/2023 12:56 PM CDT DTL Monocytes 0.60 0.26 - 0.81 x10(9)/L 12/02/2023 12:56 PM CDT DTL Eosinophils 0.22 0.03 - 0.48 x10(9)/L 12/02/2023 12:56 PM CDT DTL Basophils 0.03 0.01 - 0.08 x10(9)/L 12/02/2023 12:56 PM CDT DTL Blood (Blood, Venous) 12/02/2023 11:46 AM CDT 12/02/2023 12:11 PM CDT Sole Read APRN, C.N.P., D.N.P. LAB BLOO D ADD-ON Final Result [facility] [address] [place] [address], [facility] DTL [facility] [address] [place] [address] [facility] [place] [address] [place] [address] * AST (Aspartate Aminotransferase) (12/02/2023 11:46 AM CDT) Aspartate Aminotransferase (AST), S 21 8 - 48 U/L 12/02/2023 2:30 PM CDT DTL Blood (Blood, Venous) 12/02/2023 11:46 AM CDT 12/02/2023 12:25 PM CDT Sole Read APRN, C.N.P., D.N.P. LAB BLOO D ADD-ON Final Result [facility] [address] [place], [place] [address] [address] [place] [address] * Potassium (12/02/2023 11:46 AM CDT) Pathologist [facility] [place] Potassium, S 4.5 3.6 - 5.2 mmol/L 12/02/2023 2:30 PM CDT DTL Blood (Blood, Venous) 12/02/2023 11:46 AM CDT 12/02/2023 12:25 PM CDT Sole Read APRN, C.N.P., D.N.P. LAB BLOO D ADD-ON Final Result [facility] [address] [place], [place] [phone] [place] [address] [address] [place] [address] * Alkaline Phosphatase (12/02/2023 11:46 AM CDT) Alkaline Phosphatase, S 66 40 - 129 U/L 12/02/2023 2:30 PM CDT DTL Blood (Blood, Venous) 12/02/2023 11:46 AM CDT 12/02/2023 12:25 PM CDT Lanny Perez APRN.N.P., D.N.P. LAB BLOO D ADD-ON Final Result [facility] [address] [place] [address] * (ABNORMAL) LD (Lactate Dehydrogenase) (12/02/2023 11:46 AM CDT) Lactate Dehydrogenase (LD), S 285(H) 122 - 222 U/L 12/02/2023 2:30 PM CDT DTL Blood (Blood, Venous) 12/02/2023 11:46 AM CDT 12/02/2023 12:25 PM CDT Sole Read APRN, Lanny.N.P., D.N.P. LAB BLOO D NON ADD-ON Final Result [facility] [address] [place] [address], [place] [address] * Creatinine with Estimated GFR (12/02/2023 11:46 AM CDT) Creatinine 1.28 0.74 - 1.35 mg/dL 12/02/2023 2:30 PM CDT DTL Estimated GFR (eGFR) 62 >=60 mL/min/BSA 12/02/2023 2:30 PM CDT DTL Comment: Estimated GFR calculated using the 2020 CKD_EPI creatinine equation. Blood (Blood, Venous) 12/02/2023 11:46 AM CDT 12/02/2023 12:25 PM CDT Sole Read APRN, C.N.P., D.N.P. LAB BLOO D ADD-ON Final Result Performing Organization Address [facility] [place] [address] * Calcium, Total (12/02/2023 11:46 AM CDT) Calcium, Total, S 9.0 8.8 - 10.2 mg/dL 12/02/2023 2:30 PM CDT DTL Blood (Blood, Venous) 12/02/2023 11:46 AM CDT 12/02/2023 12:25 PM CDT Sole Read APRN, C.N.P., D.N.P. LAB BLOO D ADD-ON Final Result Performing Organization Address [facility] [place] [address] * (ABNORMAL) Bilirubin, Total (12/02/2023 11:46 AM CDT) Bilirubin, Total, S 1.8(H) 0.0 - 1.2 mg/dL 12/02/2023 2:30 PM CDT DTL Blood (Blood, Venous) 12/02/2023 11:46 AM CDT 12/02/2023 12:25 PM CDT Sole Read APRN, C.N.P., D.N.P. LAB BLOO D ADD-ON Final Result Performing Organization Address [facility] [place] [address] * (ABNORMAL) Lipid Panel (07/19/2022 10:40 AM [...] 10:40 AM CDT 07/19/2022 10:44 AM CDT us Ok Padilla M.D. LAB BLOOD ADD-ON Final Res ult [facility] [address] [place] [address], [facility] [place] [address] * (ABNORMAL) Glucose, Fasting (07/19/2022 10:39 AM CDT) Glucose, P 109(H) 70 - 100 mg/dL 07/19/2022 11:14 AM CDT FL Last Intake 10 hr 07/19/2022 11:01 AM CDT [facility] Comment: REVISED RESULTS ----PREVIOUSLY REPORTED ---- 14, Flagged as: Normal (Reported 07/19/2022 10:46) Blood (Blood, Venous) 07/19/2022 10:39 AM CDT 07/19/2022 10:45 AM CDT Ok Padilla M.D. LAB BLOOD NON ADD-ON Final Result [address] [address], [facility] [place] [address] * Sodium (01/25/2016 6:04 PM CDT) Sodium, S 142 135 - 145 MMOL/L [facility] 01/25/2016 6:04 PM CDT 01/25/2016 6:04 PM CDT Stephen Cespedes M.D. LAB BLOOD ADD-ON Final Result [facility] [address] from Last 3 Months or Most Recently Relevant to Health Maintenance Additional Health Concerns Infection Onset Date Last Indicated Protective Environment 07/19/2022 3 Insurance [facility] MEDICARE Advance Directives For more information, please contact: [phone] Documents on File Type Date Recorded Patient Grubber Expl anation Advance Directives 01/18/2021 11:23 AM [...] Second Alternate Health Care Agent Care Teams Salon Leader Relationship Specialty Start Date End Date Elsewhere, Pcp PCP - General Family Medicine 11/27/20
--- OUTSIDE RECORDS SUMMARY | 2024-01-27 15:24 | XMS_ITS | Encounter Summary ---
Author Organization [facility] Address [address] [place] [address] Care Team Providers Care Packer And Carry Out Name Role Phone Elsewhere, Pcp Primary Care Provider Unavailabl e Reason for Visit * Reason Comments Med Refill Encounter Details Date Type Department Care Team (Late st Contact Info) Description 01/16/2024 Refill Department of Cardiovascular Diseases in [address] [phone] Ok Padilla M.D. [address] [place] [phone] Med Refill Social History Tobacco Use Types Packs/Day Years Used Date Smoking Tobacco: Never Smokeless Tobacco: Never Alcohol Use Standard Drinks/Week Comments Yes 2 (1 standard drink = 0.6 oz pur e alcohol) [facility] Utilities Answer Date Recorded In the past 12 months has e electric, gas, oil, or water company threatened to shut off services in your [...] How often do you attend chur or jehovah's witness services? Never 07/16/2022 Do you belong to any clubs o r organizations such as temple groups, unions, fraternal or athletic groups, or [...] and heating? Not hard at all 09/19/2022 [facility] of Occupat ional Health - Occupational [...] your living situation today? I have a [facility] place to live 09/06/2023 Education Answer Date Recorded What is the highest level of school you have completed or the highest degree you have received? Master's degree (e.g., MA, MS, Starla, MEd, EMPLOYEE DEVELOPMENT SPECIALIST, DEBRA) 09/16/2018 Sex and Gender Information Value Date Recorded Sex Assigned at Male 10/08/2017 8:25 AM CDT Legal Sex Male 10:56 PM CANDY CATCHER Gender Identity Male 10/08/2017 8:25 AM CDT Sexual Orientation Straight 10/08/2017 8: 25 AM CDT documented as of this encounter Plan of Treatment Upcoming Encounters Date Type Department Care Team (Late st Contact Info) Description 02/26/2024 1:30 PM CANDY CATCHER Infusion Department of Infusion Therapy in [address] [phone] Bárbara Soto, PARTS SALES REPRESENTATIVE, C.N.P. [address] [place] [address] 03/03/2024 9:00 AM CANDY CATCHER Appointment Department of Laboratory Medicine in [address] [phone] Bárbara Soto APRN, C.N.P. [address] [place] [address] 04/05/2024 10:30 AM CANDY CATCHER Virtual Visit Division of Endocrinology in [place], [place] [address] [place] [address] Get Ragland APRN, C.N.P., D.N.P. [address] [place] [phone] documented as of this encounter Visit Diagnoses Not on filedocumented in this encounter Additional Health Concerns Infection Onset Date Last Indicated Resolved Time Protective Environment 07/19/2022 07/19/2022 Assessment Noted Time PHQ-9 Depression Total Score: 0 01/01/20 16 12:53 PM CDT documented as of this encounter Care Teams Packer And Carry Out Relationship Specialty Start Date End Date Elsewhere, Pcp PCP - General Family Medicine 11/27/20 documented as of this encounter
--- OUTSIDE RECORDS SUMMARY | 2024-01-27 15:24 | XMS_ITS | Referral Summary ---
Author Organization [facility] Address [address] [place] [address] Care Team Providers Care Thread Separator Name Role Phone Elsewhere, Pcp Primary Care Provider Unavailabl e Source Comments Patient records contain information from all sites at [facility]. For routine questions regarding patient records, call [phone] during business hours, M-F 8:00 AM - 5:00 PM Central Time. Record requests for emergency care only can be directed to [phone] at any time.[facility] Encounters * This document contains information received from the source organization and may not represent a complete record from that organization. Date Type Department Care Team Description 01/16/2024 Refill Department of Cardiovascular Diseases in [address] [phone] Ok Padilla M.D. Med Refill 01/01/2024 Orders Only Division of Rheumatology in [place], [place] [address] [place] [address] Bárbara Soto APRN, C.N.P. 01/01/2024 2:00 PM CDT Infusion Department of Infusion Therapy in [address] [phone] Bárbara Soto APRN, C.N.P. Arthritis Psoriatic (HCC) (Primary Dx) 12/26/2023 2:45 PM CDT Office Visit Division of Rheumatology in [place], [place] [address] [place] [phone] Bárbara Soto APRN, BinduN.P. Arthritis Psoriatic (HCC) (Primary Dx) 12/22/2023 Clinical Communication Division of Rheumatology in [place], [place] [address] [place] [phone] Giulia Gayle R.N. Lab Monitoring (Methotrexate) 12/16/2023 8:30 AM CDT Clinical Communication Virtual Review in [place], [place] 200 [place] [address] Pre-visit Intake 12/02/2023 4:00 PM CDT Office Visit Division of Hematology in [place], [place] [address] [place] [phone] Sole Read APRN, C.N.P., D.N.P. Hodgkin Lymphoma Unspecified Lymph Nodes Of Axilla And Upper Limb (HCC) (Primary Dx) 12/02/2023 11:23 AM CDT - 12/02/2023 11:59 PM CDT Hospital Encounter Department of Laboratory Medicine and Pathology, [facility], in [address] [phone] Sole Read APRN, C.N.P., D.N.P. Hodgkin Lymphoma Unspecified Lymph Nodes Of Axilla And Upper Limb (HCC) Discharge Disposition: Home or Self Care 11/28/2023 8:30 AM CDT Clinical Communication Virtual Review in [address] [address] Pre-visit Intake 11/09/2023 Orders Only Division of Rheumatology in [address] [phone] Bárbara Soto APRN, C.N.P. Arthritis Psoriatic (HCC) [...] 7.5 mg by mouth at bedtime. 01/17/20 Active enoxaparin (LOVENOX) 100 mg/mL injection Inject 100 mg under the skin as needed. 03/17/20 Active RX WELCOME PACKET-SPECIAL TY-OP ONLY Welcome packet 1 each 04/10/20 Active RX SIMPONI PATIENT KIT-OP ONLY SIMPONI PATIENT KIT 1 each 04/10/20 Active alcohol swabs (Alcohol Prep) pads, medicated As directed 100 each 04/10/20 Active RX 1/2 Gallon Sharps Container Sharps 1/2 Gallon Sharps Container 1 each 04/10/20 Active syringe with needle (BD Tuberculin Syringe) 1 mL 27 x 1/2 syringeIndicat ions:Arthritis Psoriatic (HCC) Inject 1 Syringe under the skin once a week. For use with weekly Methotrexate Injections. 25 each 1 05/14/19 Active losartan (COZAAR) 100 mg tablet Take 100 mg by mouth daily. Active doxycycline hyclate (VIBRA-TABS) 100 mg tablet Take 100 mg by mouth 2 (two) times a day. 09/28/19 Active triamcinolone (KENALOG) 0.5 % cream Apply 1 Application topically as needed. 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 Utilities Answer Date Recorded In the past [...] How often do you attend chur or jewish services? Never 07/16/2022 Do you [...] and heating? Not hard at all 09/19/2022 [facility] [place] of Occupat ional Health - Occupational Stress [...] living situation today? I have a [facility] place to live 09/06/2023 Education Answer Date Recorded What is the highest level of school you have completed or the highest degree you have received? Master's degree (e.g., GEMA, MS, Starla, MEd, PROFESSOR OF BIOLOGY, DEBRA) 09/16/2018 Sex and Gender Information Value Date Recorded Sex Assigned at Male 10/08/2017 8:25 AM CDT Legal Sex Male 10:56 PM CORPORATE RECEPTIONIST Gender Identity Male 10/08/2017 8:25 AM CDT [...] st Contact Info) Description 02/26/2024 1:30 PM CORPORATE RECEPTIONIST Infusion Department of Infusion Therapy in [address] [address] Bárbara Soto APRN, C.N.P. [address] [place] [phone] 03/03/2024 9:00 AM CORPORATE RECEPTIONIST Appointment Department of Laboratory Medicine in [address] [phone] Bárbara Soto APRN, C.N.P. [address] [place] [phone] 04/05/2024 10:30 AM CORPORATE RECEPTIONIST Virtual Visit Division of Endocrinology in [place], [place] [address] [place] [phone] Get Ragland APRN, C.N.P., D.N.P. [address] [place] [phone] Medical Devices Implanted Type Area Customer Service Dispatcher Device Identifier Shelf Expiration Date Model / Serial / Lot Bonewax Implanted:Qty: 1 on 11/24/2019 by Curly Esparza M.D. at [facility] Bone or Tissue Right: Ankle Ethicon 09/12/2023 W31 / N/A / [id number] Conversions-Defa ult Historical Implant Device- 5 Implanted:2014 (Quantity not on file) Cardiac Stent Coronary Description:Device Status Te xt - Cardiac. 2 stents Conversions - Default Historical Implant Device-07/22/2002 Implanted:2002 (Quantity not on file) Cardiac Valve Prosthesis Aorta Description:St.Shorty (for bic uspid valve ) MR conditional 3T Device Status Text - CardValve. Scrw St Pthrd Nlck Lang 6.7x85 - [id number] Implanted:Qty: 2 on 11/24/2019 at [facility] Hardware e.g. pins/screws/r ods Right: Ankle Arthrex AR-8967- 1885 / / Clp Hrzn Ti 6 Clp Nirav - [id number] Implanted:Qty: 2 on 05/23/2020 by Eva Alicea M.D. at [facility] Hardware e.g. pins/screws/r ods [employer] [id number] / / Description:Biopsy marker Ocular Lens-04/14/2008 Implanted:2008 (Quantity not on file) Ocular Lens Bilateral: Eye Vascular Graft 2014 Vascular Graft Aorta Description:Colp Tag Endopro thesis graft places in descending aorta in 2014 at [facility]. 3T Conditional at Normal Normal per [...] with Differential, Blood (12/02/2023 11:46 AM CDT) Hemoglobin 14.1 13.2 - 16.6 g/dL 12/02/2023 [...] D.N.P. LAB BLOO D ADD-ON Final Result [facility] [address] [place] [address], [place] DTL [facility] [address] [place] [address] [facility] [address] [place] [address] * AST (Aspartate Aminotransferase) (12/02/2023 11:46 AM CDT) Aspartate Aminotransferase (AST), S 21 8 - 48 U/L 12/02/2023 2:30 PM CDT DTL Blood (Blood, Venous) 12/02/2023 11:46 AM CDT 12/02/2023 12:25 PM CDT Sole Read APRN, C.N.P., D.N.P. LAB BLOO D ADD-ON Final Result Performing Organization Address City/[facility]/ZIP Co de Phone Number [facility] [address] 200 [place] [address] * Potassium (12/02/2023 11:46 AM CDT) Potassium, S 4.5 3.6 - 5.2 mmol/L 12/02/2023 2:30 PM CDT DTL Blood (Blood, Venous) 12/02/2023 11:46 AM CDT 12/02/2023 12:25 PM CDT Sole Read APRN, C.N.P., D.N.P. LAB BLOO D ADD-ON Final Result Performing Organization Address [facility] Co de Phone Number [facility] [address] [place] [address] * Alkaline Phosphatase (12/02/2023 11:46 AM CDT) Alkaline Phosphatase, S 66 40 - 129 U/L 12/02/2023 2:30 PM CDT DTL Blood (Blood, Venous) 12/02/2023 11:46 AM CDT 12/02/2023 12:25 PM CDT Sole Read APRN, C.N.P., D.N.P. LAB BLOO D ADD-ON Final Result Performing Organization Address City/[facility]/ZIP Co de Phone Number [facility] 200 [place] [address], [facility] DTDepartment [facility] [address] [place] [address] * (ABNORMAL) LD (Lactate Dehydrogenase) (12/02/2023 11:46 AM CDT) Lactate Dehydrogenase (LD), S 285(H) 122 - 222 U/L 12/02/2023 2:30 PM CDT DTL Blood (Blood, Venous) 12/02/2023 11:46 AM CDT 12/02/2023 12:25 PM CDT Sole Read APRN, C.N.P., D.N.P. LAB BLOO D NON ADD-ON Final Result Performing Organization Address City/[facility] Co de Phone Number [facility] [address] DT[facility] Affairs [facility] [address] [place] [address] * Creatinine with Estimated GFR (12/02/2023 11:46 AM CDT) Creatinine 1.28 0.74 - 1.35 mg/dL 12/02/2023 2:30 PM CDT DTL Estimated GFR (eGFR) 62 >=60 mL/min/BSA 12/02/2023 2:30 PM CDT DTL Comment: Estimated GFR calculated using the 2020 CKD_EPI creatinine equation. Blood (Blood, Venous) 12/02/2023 11:46 AM CDT 12/02/2023 12:25 PM CDT Sole Read APRN, C.N.P., D.N.P. LAB BLOO D ADD-ON Final Result [facility] [address] [place], [place] [phone] [place] [address] [address] * Calcium, Total (12/02/2023 11:46 AM CDT) Calcium, Total, S 9.0 8.8 - 10.2 mg/dL 12/02/2023 2:30 PM CDT DTL Blood (Blood, Venous) 12/02/2023 11:46 AM CDT 12/02/2023 12:25 PM CDT Sole Read APRN C.N.P., D.N.P. LAB BLOO D ADD-ON Final Result Performing Organization Address [facility] Co de Phone Number [facility] 200 [place] [address] * (ABNORMAL) Bilirubin, Total (12/02/2023 11:46 AM CDT) Bilirubin, Total, S 1.8(H) 0.0 - 1.2 mg/dL 12/02/2023 2:30 PM CDT DTL Blood (Blood, Venous) 12/02/2023 11:46 AM CDT 12/02/2023 12:25 PM CDT Sole Read APRN, C.N.P., D.N.P. LAB BLOO D ADD-ON Final Result Performing Organization Address [facility] Co de Phone Number [facility] [address] [place], [place] [id number] [place] [address] * (ABNORMAL) Lipid Panel (07/19/2022 10:40 AM [...] M.D. LAB BLOOD ADD-ON Final Res ult [facility] [address] [place] [address], [facility] CNO[facility] [place] [address] * (ABNORMAL) Glucose, Fasting (07/19/2022 10:39 AM CDT) Glucose, P 109(H) 70 - 100 mg/dL 07/19/2022 11:14 AM CDT CNFL Last Intake 10 hr 07/19/2022 11:01 AM CDT CNFL Comment: REVISED RESULTS ----PREVIOUSLY REPORTED ---- 14, Flagged as: Normal (Reported 07/19/2022 10:46) Blood (Blood, Venous) 07/19/2022 10:39 AM CDT 07/19/2022 10:45 AM CDT us Ok Padilla M.D. LAB BLOOD NON ADD-ON Final Result [facility] [address] [place] [address], [place] CNFL [facility] in [address] [address] * Sodium (01/25/2016 6:04 PM CDT) Sodium, S 142 135 - 145 MMOL/L [facility] 01/25/2016 6:04 PM CDT 01/25/2016 6:04 PM CDT us Stephen Cespedes M.D. LAB BLOOD ADD-ON Final Result [facility] [address] from Last 3 Months or Most Recently Relevant to Health Maintenance Additional Health Concerns Infection Onset Date Last Indicated Protective Environment 07/19/2022 3 Insurance [facility] MEDIC[facility] Advance Directives For more information, please contact: [phone] Documents on File Type Date Recorded Patient Ferry Terminal Agent Expl anation Advance Directives 01/18/2021 11:23 AM [...] Daughter First Alternate Health Care Agent Gil Charlette Son Second Alternate Health Care Agent Care Teams Thread Separator Relationship Specialty Start Date End Date Elsewhere, Pcp PCP - General Family Medicine 11/27/20
--- OUTSIDE RECORDS SUMMARY | 2024-01-27 15:24 | XMS_ITS | Clinical Summary ---
Author Organization [facility] Address [address], [place] [address] Care Team Providers Care Brusher Warp Name Role Phone Gale Garcia MD Primary Care Provider [phone] Source Comments You are receiving this document as you are listed as the primary care provider,follow-up provider, or the patient has been referred to you for consultation.This is in compliance with the Medicare and[facility] Hospital[facility] EHR Incentive Program,which states Providers who transition their patient to another setting of careor provider of care or refers their patient to another provider of care shouldprovide summary care record for each transition of care or referral. [facility] Allergies No known active allergies Medications Medication [...] 45 MG/0.5ML injection Inject 45 mg subcutaneously [id number]. Active simvastatin (ZOCOR) 10 MG tablet Take [...] - PCV) 2022 COVID-19 Vaccine ( - 2023-2 5 season) 2023 Influenza (#1) 2023 RSV (1 - 1-dose 75+ series) 01/22/2032 HepA Aged Out No longer eligi ble based on patient's age to complete this topic HepB Aged Out No longer eligi ble based on patient's age to complete this topic Hib Aged Out No longer eligi ble based on patient's age to complete this topic IPV (Polio) Aged Out No longer eligi ble based on patient's age to complete this topic RSV Aged Out No longer eligi ble based on patient's age to complete this topic MCV4 Aged Out No longer eligi ble based on patient's age to complete this topic Care Teams Brusher Warp Relationship Specialty Start Date End Date Gale Garcia MD [address] [place] [address] PCP - General Internal Medicine 08/23/16
--- OUTSIDE RECORDS SUMMARY | 2024-01-27 15:24 | XMS_ITS | Encounter Summary ---
Author Organization [facility] Address [address] [place] [address] Care Team Providers Care Transmission Worker Name Role Phone Elsewhere, Pcp Primary Care Provider Unavailabl e Reason for Visit * Reason Comments Outpatient Infusion * Episode Based Medications (Routine) - Authorized Specialty Diagnoses / Procedures Referred By Contac t Referred To Contact Diagnoses Arthritis Psoriatic (HCC) Bárbara Soto APRN, C.N.P. 200 [place] [address] Phone: tel: fax: Division of Rheumatology in [place], [place] [address] [place] [address] Phone: tel: fax: Referral ID Status Reason Start Date Expiration Date V isits Requested Visits Authorized [id number] Authorized 11/14/2022 11/13/2024 99 99 Encounter Details Date Type Department Care Team (Late st Contact Info) Description 01/01/2024 2:00 PM CDT Infusion Department of Infusion Therapy in [address] [phone] Bárbara Soto APRN, C.N.P. [address] [place] [phone] Arthritis Psoriatic (HCC) (Primary Dx) Social History Tobacco Use Types Packs/Day Years Used Date Smoking Tobacco: Never Smokeless Tobacco: Never Alcohol Use Standard Drinks/Week Comments Yes 2 (1 standard drink = 0.6 oz pur e alcohol) [facility] Utilities Answer Date Recorded In the past 12 months has th e electric, gas, oil, or water company [...] How often do you attend chur or baptism services? Never 07/16/2022 Do you belong to [...] and heating? Not hard at all 09/19/2022 [facility] - Occupational Stress Questionnaire Answer Date Recorded [...] have a [facility] place to live 09/06/2023 Education Answer Date Recorded What is the highest level of school you have completed or the highest degree you have received? Master's degree (e.g., MA, MS, Starla, MEd, SALON CUSTOMER EXPERIENCE SPECIALIST, DEBRA) 09/16/2018 Sex and Gender Information Value Date Recorded Sex Assigned at Male 10/08/2017 8:25 AM CDT Legal Sex Male 10:56 PM CARD HANGER Gender Identity Male 10/08/2017 8:25 AM CDT [...] oz) 01/01/2024 1:46 P M CDT Height - - Body Mass Index 32.11 12/26/2023 2:36 PM CDT documented in this encounter Plan of Treatment Upcoming Encounters Date Type Department Care Team (Late st Contact Info) Description 02/26/2024 1:30 PM CARD HANGER Infusion Department of Infusion Therapy in [address] [phone] Bárbara Soto APRN, C.N.P. [address] [place] [phone] 03/03/2024 9:00 AM CARD HANGER Appointment Department of Laboratory Medicine in [address] [phone] Bárbara Soto APRN, C.N.P. [address] [place] [phone] 04/05/2024 10:30 AM CARD HANGER Virtual Visit Division of Endocrinology in [place], [place] [address] [place] [phone] Get Ragland APRN, C.N.P., D.N.P. [address] [place] [phone] documented as of this encounter Visit Diagnoses Diagnosis Arthritis Psoriatic (HCC)- Primary documented in this encounter Administered Medications Inactive Administered Medications - up to 3 most recent administrations Medication Order MAR Action Action Date Dose Rate Site golimumab 200 mg in NaCl 0.9% IVPB (Simponi ARIA) 200 mg (rounded from 202 mg = 2 mg/kg ? 101 kg), intravenous, at 200 mL/hr, Administer over 30 Minutes, Once, On Azeb 01/01/24 at 1415, For 1 dose, Do NOT shake. Use in-line filter. Do NOT refrigerate.Indications:Arthr itis Psoriatic (HCC) New Bag 01/01/2024 2:04 PM CDT 200 mg 200 mL/hr documented in this encounter Additional Health Concerns Infection Onset Date Last Indicated Resolved Time Protective Environment 07/19/2022 07/19/2022 Assessment Noted Time PHQ-9 Depression Total Score: 0 01/01/20 16 12:53 PM CDT documented as of this encounter Care Teams Transmission Worker Relationship Specialty Start Date End Date Elsewhere, Pcp PCP - General Family Medicine 11/27/20 documented as of this encounter
--- OUTSIDE RECORDS SUMMARY | 2024-01-27 15:24 | XMS_ITS ---
Author Organization [facility] Address [address] [place] [address] Care Team Providers Care Stemhole Borer And Topper Name Role Phone Unavailable Unavailable Unavailable Surgery Details Not on file Complications Check Surgery Details section. Procedure Estimated Blood Loss Check Surgery Details section. Procedure Findings Check Surgery Details section. Procedure Specimens Taken Check Surgery Details section.
--- OUTSIDE RECORDS SUMMARY | 2024-01-27 15:24 | XMS_ITS | Encounter Summary ---
Author Organization [facility] Address [address] [address] Phone Care Team Providers Care Concrete Wall Grinder Operator Name Role Phone Jose Fountain MD Primary Care Provider Elsewhere, Pcp Primary Care Provider Gale Sanchez MD Primary Care Provider [phone] Encounter Details Date Type Department Care Team (Late st Contact Info) Description 06/15/2012 Telephone Call [facility] ORTHOPEDICS SURGICAL [address] [place] [address] Usman Vo MD [address] [place] [address] Social History Tobacco Use Types [...] Vo MD - 06/16/2012 8:18 AM CST [facility] Patient Name: RIC OVALLES Date of Service: 06/15/2012 : 1955 Age: 57Y Sex: M DC Site MRN: Patient Loc/Room #: / Provider: Usman Vo MD, Orthopaedics TELEPHONE CALL SITE: NA Phone call to Mr. Ovalles ([phone]). I spoke with Ric specifically about his [...] level of pain relief. Usman Vo MD [facility] Orthopaedics cc: Jose Fountain MD /DAVE Job ID: [id number] /[id number] Document ID: [id number] documented in this encounter Plan of Treatment Not on file documented as of this encounter Visit Diagnoses Not on filedocumented in this encounter Care Teams Concrete Wall Grinder Operator Relationship Specialty Start Date End Date Jose Fountain MD PCP - General Internal Medicine 10/11/11 11/01/14 Elsewhere, Pcp PCP - General 11/02/14 03/01/15 Gale Garcia MD [address] [phone] PCP - General Internal Medicine 03/02/15 documented as of this encounter
--- OUTSIDE RECORDS SUMMARY | 2024-01-27 15:24 | XMS_ITS | Clinical Summary ---
Author Organization [facility] Address [address] [address] Phone Care Team Providers Care Automotive Software Engineer Name Role Phone Gale Garcia MD Primary Care Provider [phone]- [phone] Allergies No known active allergies Medications Medication [...] Date Diagnosed Date Chronic Pain Syndrome - [facility] Agreement for Opioid Treatment - 10/21/2013 10/21/2013 Overview: Pain Dx: psoriatic arthritis Preferred Pharmacy: [facility] Comments: Opioid contract renewed 10/21/13 mgr. Recurrent [...] aortic graft on 07/14. On lifelong anticoagulation. manager intermediate (current) use of anticoagulants 2003 Overview: Updated [...] Dose Vial (Flu Clin ic) 02/16/2008 Influenza Trivalent Preservative Free 01/29/2013 ,02/19/2006 Influenza Trivalent With Preservative 01/09/2012 ,01/24/2009 Pneumococcal Conjugate, (Prevnar)13-valent 04/22 TD >7yrs With Preservative 07/12/2003,11/06/1992 Tdap (7 years and older) 04/17/2012 Surgical History Surgery Date Site/Laterality Comments HEART FLOW RESERVE MEASURE 08/03/2001 Cardiac cath. REMV PILONIDAL LESION SIMPLE 1981 Pilonidal cyst, ? type of procedure done. [...] ewhere classified 04/12/02 Switched to Effexor from [facility] (having problems with this). Other and unspecified hyperlipidemia 02/17/02 Unspecified sleep apnea 02/17/[address] udy 09/29/97. Tolerated nasal CPAP poorly. Observe. Acute ethmoidal sinusitis 02/17/02 Rx Agustin xicillin. Intermittent sinusitis. Aortic valve disorders 09/16/01 [...] Comments Blood Pressure 180/113 03/02/2015 3:37 PM DENIAL MANAGEMENT REPRESENTATIVE Pulse 94 03/02/2015 3:37 PM DENIAL MANAGEMENT REPRESENTATIVE Temperature 36.5 ??C (97.7 ??F) 03/02/2015 3:45 PM CS T Respiratory Rate 34 03/02/2015 3:37 PM DENIAL MANAGEMENT REPRESENTATIVE Oxygen Saturation 97% 03/02/2015 3:31 PM DENIAL MANAGEMENT REPRESENTATIVE Inhaled Oxygen Concentration - - Weight 99.8 kg (220 lb) 03/02/2015 1:36 PM DENIAL MANAGEMENT REPRESENTATIVE Height 177.8 cm (5' 10) 03/02/2015 1:36 PM DENIAL MANAGEMENT REPRESENTATIVE Body Mass Index 31.57 03/02/2015 1:36 PM DENIAL MANAGEMENT REPRESENTATIVE Plan of Treatment Health Maintenance Due Date Last Done Comments Shingrix (Zoster recombinant) vaccine (Standing Order) (1 of 2) 2007 COVID-19 Vaccine (3 - Pfizer risk series) 07/22/2020 06/24/2020, 06/03/2020 Pneumococcal Vaccine: 65+ yrs (Standing Order) (2 of 2 - PPSV23 or PCV20) 2022 04/22/2013 TETANUS (Standing Order) 04/17/2022 013, 07/12/2003, 11/06/1992 Influenza Vaccine Seasonal (Standing Order) (#1) 2023 01/29/2013, 01/09/2012, 01/24/2009, Additional history exists PERTUSSIS (Standing Order) Completed 04/17/2012 HPV Vaccine (Standing Order) Aged Out No longer eligible based on patient's age to complete this topic Hepatitis B Vaccine (Standing Order) Aged Out No longer eligible based on patient's age to complete this topic Medical Devices Implanted Type Area Polygraph Examiner Device Identifier Shelf Expiration Date Model / Serial / Lot Sn60wf 17.5blue Filter Sn60wf.175 - [id number] Implanted:Qty: 1 on 12/18/2011 by Tuan Adame MD at [facility] Right: Eye SAMY SN60WF. 175 / [id number] / Sn60wf 17.5blue Filter Sn60wf.175 - [id number] Implanted:Qty: 1 on 01/15/2012 by Tuan Adame MD at [facility] SAMY 06/11/2016 SN60WF. 175 / [id number] / Pushlock Biocomposite Sp 2.9mm Ar-1923bc - [id number] Implanted:Qty: 2 on 06/03/2012 at [facility] Left: Shoulder ARTHREX 04/02/2014 AR-1923BC / NA / [id number] 4.75 Biocomp Swivel Lock [place] Ar-2324bcc - [id number] Implanted:Qty: 2 on 06/03/2012 at [facility] Left: Shoulder ARTHREX 04/02/2014 AR-2324BCC / NA / [id number] Pushlock Biocomposite Sp 2.9mm Ar-1923bc - [id number] Implanted:Qty: 1 on 06/03/2012 at [facility] Left: Shoulder ARTHREX 05/03/2014 AR-1923BC / NA / [id number] 4.75 Biocomp Swivel Lock [place] Ar-2324bcc - [id number] Implanted:Qty: 1 on 06/03/2012 at [facility] Left: Shoulder ARTHREX 05/03/2014 AR-2324BCC / NA / [id number] 4.75 Biocomp Swivel Lock [place] Ar-2324bcc - [id number] Implanted:Qty: 1 on 06/03/2012 at [facility] Left: Shoulder ARTHREX 05/03/2014 AR-2324BCC / NA / [id number] Advance Directives For more information, please contact: [phone] * No Code Status (Latest Code Status on File) Date Activated Date Inactivated Comments 09/21/2002 5:32 PM 09/21/2002 5:32 PM Care Teams Automotive Software Engineer Relationship Specialty Start Date End Date Gale Garcia MD [facility] [address] [place] [address] PCP - General Internal Medicine 03/02/15
--- OUTSIDE RECORDS SUMMARY | 2024-01-27 15:24 | XMS_ITS | Encounter Summary ---
Author Organization [facility] Address [address] [place] [address] Care Team Providers Care Light Bulb Replacer Name Role Phone Gale Garcia MD Primary Care Provider +1- [phone] Encounter Details Date Type Department Care Team (Late st Contact Info) Description 08/27/2016 Consent for Procedure/Treatme [facility] [place] [address] [place] [address] Provider, Not On File [address] [place] [id number] CONSENT FOR PROCEDURE Social History Tobacco Use [...] on filedocumented in this encounter Care Teams Light Bulb Replacer Relationship Specialty Start Date End Date Gale Garcia MD [address] [place] [address] PCP - General Internal Medicine 08/23/16 documented as of this encounter
--- OUTSIDE RECORDS SUMMARY | 2024-01-27 15:25 | XMS_ITS | Encounter Summary ---
Author Organization [facility] Address [address] [place] [address] Care Team Providers Care Vehicle Cost Engineer Name Role Phone Elsewhere, Pcp Primary Care Provider Unavailabl e Encounter Details Date Type Department Care Team (Latest Contact Info) Description 12/02/2023 11:23 AM CDT - 12/02/2023 11:59 PM CDT Hospital Encounter Department of Laboratory Medicine and Pathology, [facility], in [address] [place] [address] Sole Read APRN, C.N.P., D.N.P. [address] [place] [phone] Hodgkin Lymphoma Unspecified Lymph Nodes Of Axilla And Upper Limb (HCC) Discharge Disposition: Home or Self Care Social History Tobacco Use Types Packs/Day Years Used Date Smoking Tobacco: Never Smokeless Tobacco: Never Alcohol Use Standard Drinks/Week Comments Yes 2 (1 standard drink = 0.6 oz pur e alcohol) [facility] Utilities Answer Date Recorded In the past [...] often do you attend chur ch or congregation services? Never 07/16/2022 Do you belong to any clubs o r organizations such as catholic groups, unions, fraternal or athletic groups, or [...] and heating? Not hard at all 09/19/2022 [facility] [place] of Occupat ional Health - Occupational Stress [...] a [facility] place to live 09/06/2023 Education Answer Date Recorded What is the highest level of school you have completed or the highest degree you have received? Master's degree (e.g., MA, MS, Starla, MEd, WOOD AND WOOD [employer]ODUCTS LABOURER, DEBRA) 09/16/2018 Sex and Gender Information Value Date Recorded Sex Assigned at Male 10/08/2017 8:25 AM CDT Legal Sex Male 10:56 PM CUSTOMER SERVICE RECEPTIONIST Gender Identity Male 10/08/2017 8:25 AM CDT Sexual Orientation Straight 10/08/2017 8: 25 AM CDT documented as of this encounter Medications at Time of Discharge acetaminophen (TYLENOL) 500 mg tablet Take 1,000 mg by mouth every 6 (six) hours as needed for pain. alcohol swabs (Alcohol Prep) pads, medicated As directed 100 each 04/10/2023 amLODIPine (NORVASC) 10 mg tablet Take 10 mg by mouth daily. 03/11/2015 buPROPion XL (Wellbutrin XL) 150 mg 24 hr tablet Take 150 mg by mouth daily. cholecalciferol (VITAMIN D3) 50 mcg (2,000 Unit) capsule Take 2,000 Units by mouth daily. 05/02/2014 doxycycline hyclate (VIBRA-TABS) 100 mg tablet Take 100 mg by mouth 2 (two) times a day. 09/27/2022 enoxaparin (LOVENOX) 100 mg/mL injection Inject 100 mg under the skin as needed. 03/17/2023 folic acid 1 mg tabletIndication s:Arthritis Psoriatic (HCC) TAKE 2 TABLETS (2,000 MCG TOTAL) BY MOUTH DAILY 180 tablet 3 08/13/2023 furosemide (LASIX) 20 mg tablet take 1 tablet by mouth every day 90 tablet 3 06/26/2023 labetaloL (NORMODYNE) 100 mg tablet Take 1 tablet (100 mg total) by mouth 2 (two) times a day. 180 tablet 3 09/11/2023 loperamide (IMODIUM A-D) 2 mg tablet Take 1 mg by mouth 2 (two) times a day as needed for diarrhea. losartan (COZAAR) 100 mg tablet Take 100 mg by mouth daily. methotrexate 25 mg/mL injectionIndicat ions:Arthritis Psoriatic (HCC) INJECT 0.7 ML (17.5 MG TOTAL) UNDER THE SKIN ONCE A WEEK. 10 mL 1 06/24/2023 mirtazapine (REMERON) 7.5 mg tablet Take 7.5 mg by mouth at bedtime. 01/16/2023 needle, disp, 27 gauge 27 gauge x 1/2 needleIndication s:Arthritis Psoriatic (HCC) For methotrexate injections. 12 each 2 09/26/2022 omeprazole (PriLOSEC) [address] capsule Take 20 mg by mouth as needed. 11/25/2011 predniSONE (DELTASONE) 5 mg tabletIndication s:Arthritis Psoriatic (HCC) 4 tabs x 3 days, 3 tabs x 3 days, 2 tabs x 3 days, 1 tabs x 3 days, off 30 tablet 07/21/2023 RX 1/2 Gallon Sharps Container Sharps 1/2 Gallon Sharps Container 1 each 04/10/2023 RX SIMPONI PATIENT KIT-OP ONLY SIMPONI PATIENT KIT 1 each 04/10/2023 RX WELCOME PACKET-SPECIALTY -OP ONLY Welcome packet 1 each 04/10/2023 semaglutide (Wegovy) 2.4 mg/0.75 mL pen injector injectionIndicat ions:Obesity Body Mass Index 30-39.9 Adult Inject 2.4 mg under the skin every 7 (seven) days. Follow prescriber's dose escalation instructions. 3 mL 11 07/23/2023 sennosides-docus ate sodium (Senna with Docusate Sodium) 8.6-50 mg per tablet Take 1 tablet by mouth at bedtime as needed. For constipation 10/04/2020 sildenafiL (VIAGRA) 50 mg tablet Take 1 tablet (50 mg total) by mouth daily as needed for erectile dysfunction. 20 tablet 2 05/22/2022 SQ 1 Ml Injection KitIndications:A rthritis Psoriatic (HCC) For methotrexate injections 1 kit 3 09/27/2022 12:45 PM CDT 09/26/2022 syringe with needle (BD Tuberculin Syringe) 1 mL 27 x 1/2 syringeIndicatio ns:Arthritis Psoriatic (HCC) Inject 1 Syringe under the [...] total) by mouth daily. 10 mg on Tues, Th, Sat. 7.5 mg all other days 10/19/2020 atorvastatin (LIPITOR) 40 mg tablet TAKE 1 TABLET BY MOUTH EVERY DAY 90 tablet 3 02/06/2023 4 documented as of this encounter Plan of Treatment Upcoming Encounters Date Type Department Care Team (Late st Contact Info) Description 02/26/2024 1:30 PM CUSTOMER SERVICE RECEPTIONIST Infusion Department of Infusion Therapy in [address] [phone] Bárbara Soto APRN, C.N.P. [address] [place] [phone] 03/03/2024 9:00 AM CUSTOMER SERVICE RECEPTIONIST Appointment Department of Laboratory Medicine in [address] [phone] Bárbara Soto APRN, C.N.P. [address] [place] [phone] 04/05/2024 10:30 AM CUSTOMER SERVICE RECEPTIONIST Virtual Visit Division of Endocrinology in [address] [place] [phone] Get Ragland APRN, C.N.P., D.N.P. [address] [place] [phone] documented as of this encounter Procedures Procedure Name Priority Date/Time Associated Diagnosis Comments CBC WITH DIFFERENTIAL, B Routine 024 11:46 AM CDT Hodgkin Lymphoma Unspecified Lymph Nodes Of Axilla And Upper Limb (HCC) ASPARTATE AMINOTRANSFERASE (AST), S/P Routine 12/02/2023 11:46 AM CDT Hodgkin Lymphoma Unspecified Lymph Nodes Of Axilla And Upper Limb (HCC) POTASSIUM, S/P Routine 12/02/2023 11:46 AM CDT [...] documented in this encounter Results * Potassium (12/02/2023 11:46 AM CDT) Potassium, S 4.5 3.6 - 5.2 mmol/L 12/02/2023 2:30 PM CDT DTL Blood (Blood, Venous) 12/02/2023 11:46 AM CDT 12/02/2023 12:25 PM CDT Sole Read APRN, C.N.P., D.N.P. LAB BLOO D ADD-ON Final Result [facility] [address] [place] [address], [facility] [address] [place] [address] * (ABNORMAL) LD (Lactate Dehydrogenase) (12/02/2023 11:46 AM CDT) Lactate Dehydrogenase (LD), S 285(H) 122 - 222 U/L 12/02/2023 2:30 PM CDT DTL Blood (Blood, Venous) 12/02/2023 11:46 AM CDT 12/02/2023 12:25 PM CDT Lanny Perez APRN.N.P., D.N.P. LAB BLOO D NON ADD-ON Final Result Performing Organization Address City/[facility]/ZIP Co de Phone Number [facility] [address] [place] [address], [facility] [address] [place] [address] * Creatinine with Estimated GFR (12/02/2023 11:46 AM CDT) Pathologist [facility] Creatinine 1.28 0.74 - 1.35 mg/dL 12/02/2023 2:30 PM CDT DTL Estimated GFR (eGFR) 62 >=60 mL/min/BSA 12/02/2023 2:30 PM CDT DTL Comment: Estimated GFR calculated using the 2020 CKD_EPI creatinine equation. Blood (Blood, Venous) 12/02/2023 11:46 AM CDT 12/02/2023 12:25 PM CDT Lanny Perez APRN.N.P., D.N.P. LAB BLOO D ADD-ON Final Result Performing Organization Address City/[facility]/ZIP Co de Phone Number [facility] [address] [place] [address], [facility] [address] [place] [address] * CBC with Differential, Blood (12/02/2023 11:46 [...] D.N.P. LAB BLOO D ADD-ON Final Result [facility] [address] [place] [address], [facility] DTL [facility] [address] [place] [address] [facility] [address] [place] [address] * Calcium, Total (12/02/2023 11:46 AM CDT) [facility] Calcium, Total, S 9.0 8.8 - 10.2 mg/dL 12/02/2023 2:30 PM CDT DTL Blood (Blood, Venous) 12/02/2023 11:46 AM CDT 12/02/2023 12:25 PM CDT Sole Read APRN, C.N.P., D.N.P. LAB BLOO D ADD-ON Final Result [facility] [address] [place], [place] [address] [address] [place] [address] * (ABNORMAL) Bilirubin, Total (12/02/2023 11:46 AM CDT) Bilirubin, Total, S 1.8(H) 0.0 - 1.2 mg/dL 12/02/2023 2:30 PM CDT DTL Blood (Blood, Venous) 12/02/2023 11:46 AM CDT 12/02/2023 12:25 PM CDT Lanny Perez APRN.N.P., D.N.P. LAB BLOO D ADD-ON Final Result Performing Organization Address City/[facility]/ZIP Co de Phone Number [facility] [address] [place], [place] [address] [address] [place] [address] * AST (Aspartate Aminotransferase) (12/02/2023 11:46 AM CDT) Aspartate Aminotransferase (AST), S 21 8 - 48 U/L 12/02/2023 2:30 PM CDT DTL Blood (Blood, Venous) 12/02/2023 11:46 AM CDT 12/02/2023 12:25 PM CDT Lanny Perez APRN.N.P., D.N.P. LAB BLOO D ADD-ON Final Result Performing Organization Address City/[facility]/ZIP Co de Phone Number [facility] [address] [place] [address], [facility] [address] [place] [address] * Alkaline Phosphatase (12/02/2023 11:46 AM CDT) Alkaline Phosphatase, S 66 40 - 129 U/L 12/02/2023 2:30 PM CDT DTL Blood (Blood, Venous) 12/02/2023 11:46 AM CDT 12/02/2023 12:25 PM CDT Sole Read APRN, C.N.P., D.N.P. LAB BLOO D ADD-ON Final Result [facility] [address] [place] [address], [facility] [address] [place] [address] documented in this encounter Visit Diagnoses Diagnosis Hodgkin Lymphoma Unspecified Lymph Nodes Of Axilla And Upper Limb (HCC) documented in this encounter Additional Health Concerns Infection Onset Date Last Indicated Resolved Time Protective Environment 07/19/2022 07/19/2022 Assessment Noted Time PHQ-9 Depression Total Score: 0 01/01/20 16 12:53 PM CDT documented as of this encounter Care Teams Vehicle Cost Engineer Relationship Specialty Start Date End Date Elsewhere, Pcp PCP - General Family Medicine 11/27/20 documented as of this encounter
--- OUTSIDE RECORDS SUMMARY | 2024-01-27 15:25 | XMS_ITS | Encounter Summary ---
Author Organization [facility] Address [address] [place] [address] Care Team Providers Care Milieu Counselor Name Role Phone Elsewhere, Pcp Primary Care Provider Unavailabl e Reason for Referral * Outpatient (Routine) - Authorized Specialty Diagnoses / Procedures Referred By Contac t Referred To Contact Hematology Oncology Sole Read APRN, C.N.P., D.N.P. Phone: tel: fax: [facility] Referral ID Status Reason Start Date Expiration Date V isits Requested Visits Authorized [id number] Authorized 12/02/2023 06/02/2025 1 1 Reason for Visit * Outpatient (Routine) - Closed Specialty Diagnoses / Procedures Referred By Contac t Referred To Contact Hematology Oncology Sole Read APRN, C.N.P., D.N.P. Phone: tel: fax: [facility] Referral ID Status Reason Start Date Expiration Date Visits Re quested Visits Authorized [id number] Closed 05/30/2023 11/28/2024 1 1 Encounter Details Date Type Department Care Team (Late st Contact Info) Description 12/02/2023 4:00 PM CDT Office Visit Division of Hematology in [place], [place] [address] [place] [phone] Sole Read APRN, C.N.P., D.N.P. [address] [place] [phone] Hodgkin Lymphoma Unspecified Lymph Nodes Of Axilla And Upper Limb (HCC) (Primary Dx) Social History Tobacco Use Types Packs/Day Years Used Date Smoking Tobacco: Never Smokeless Tobacco: Never Alcohol Use Standard Drinks/Week Comments Yes 2 (1 standard drink = 0.6 oz pur e alcohol) [facility] Utilities Answer Date Recorded In the past 12 months has e electric, gas, oil, or water [employer] threatened to shut off services in your [...] and heating? Not hard at all 09/19/2022 [facility]at ional [facility] - Occupational Stress Questionnaire Answer Date [...] Master's degree (e.g., MA, MS, Starla, MEd, DATABASE DEVELOPMENT PROJECT MANAGER, DEBRA) 09/16/2018 Sex and Gender Information Value Date Recorded Sex Assigned at Male 10/08/2017 8:25 AM CDT Legal Sex Male 10:56 PM FARMHAND Gender Identity Male 10/08/2017 8:25 AM CDT Sexual Orientation Straight 10/08/2017 8: 25 AM CDT documented as of this encounter Last Filed Vital Signs Vital Sign Reading Time Taken Comments Blood Pressure 130/74 12/02/2023 3:48 PM CDT Pulse 76 12/02/2023 3:48 PM CDT Temperature 36.4 ??C (97.6 ??F) 12/02/2023 3:48 PM CD T Respiratory Rate - - Oxygen Saturation 95% 12/02/2023 3:48 PM CDT Inhaled Oxygen Concentration - - Weight 99.8 kg (220 lb 0.3 oz) 12/02/2023 3:48 P M CDT Height 177.5 cm (5' 9.88) 12/02/2023 3:48 PM CD T Body Mass Index 31.68 12/02/2023 3:48 PM CDT documented in this encounter Progress Notes * Sloe Read APRN, C.N.P., D.N.P. - 12/02/2023 4:00 PM CDT SUBJECTIVE CHIEF COMPLAINT / REASON FOR VISIT Primary lymphoma MD: Dr. Benz Primary lymphoma PARVIN: Sole Read APRN, LIVESTOCK BROKER, DNP Classical Hodgkin Lymphoma HISTORY OF PRESENT [...] Chest CT 06/07/20 First ABVD infusion in [place] 09/08/2020 CT chest IMPRESSION: 1. Interval increase in bulky right axillary lymphadenopathy. No mediastinal or hilar lymphadenopathy. 2. 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 male who presents for evaluation of his Hodgkin lymphoma. Patient completed ABVD in December of 2020 with consolidative RT to the right axilla. Patient reports he has beendoing well since we last saw him. He denies B symptoms and palpable adenopathy. He has not had recurrent infections nor ER visits. He has been able to enjoy some traveling this summer. Overall, patient is doing well and denies major interval changes. [...] OF SYSTEMS REVIEW OF SYSTEMS OBJECTIVE BP 130/74 (BP Location: Left arm, Patient Position: Sitting, Cuff Size: Regular) Pulse 76 Temp 36.4 ??C (Tympanic) Ht 177.5 cm Wt 99.8 kg SpO2 95% BMI 31.68 kg/m?? Wt Readings from Last 3 Encounters: 12/02/23 99.8 kg 10/02/23 101 kg 09/11/23 104 kg PHYSICAL EXAM General: Well-nourished, in good [...] which is elevated secondary to his arthritis. Bilirubin isincreased with normal LFTs consistent with previous Gilbert's diagnosis. Patient denies B symptoms as well. Physical [...] questions answered. I personally spent a total 25 minutes face to face with the patient in counseling and discussion and/or coordination of care as described above. documented in this encounter Plan of Treatment Upcoming Encounters Date Type Department Care Team (Late st Contact Info) Description 02/26/2024 1:30 PM FARMHAND Infusion Department of Infusion Therapy in [address] [phone] Bárbara Soto APRN, C.N.P. [address] [place] [phone] 03/03/2024 9:00 AM FARMHAND Appointment Department of Laboratory Medicine in [address] [place] [phone] Bárbara Soto APRN, C.N.P. [address] [place] [phone] 04/05/2024 10:30 AM FARMHAND Virtual Visit Division of Endocrinology in [place], [place] [address] [place] [phone] Get Ragland APRN, C.N.P., D.N.P. [address] [place] [phone] Scheduled Orders Name Type Priority Associated Diagnoses Orde r Schedule Alkaline Phosphatase Lab Routine Hodgkin Lymphoma Unspecified Lymph Nodes Of Axilla And Upper Limb (HCC) Expected: 06/03/2024, Expires: 12/01/2026 AST (Aspartate Aminotransferase) Lab Routine Hodgkin Lymphoma Unspecified Lymph Nodes Of Axilla And Upper Limb (HCC) Expected: 06/03/2024, Expires: 12/01/2026 Bilirubin, Total Lab Routine Hodgkin Lymphoma Unspecified Lymph Nodes Of Axilla And Upper Limb (HCC) Expected: 06/03/2024, Expires: 12/01/2026 Calcium, Total Lab Routine Hodgkin Lymphoma Unspecified Lymph Nodes Of Axilla And Upper Limb (HCC) Expected: 06/03/2024, Expires: 12/01/2026 CBC with Differential, Blood Lab Routine Hodgkin Lymphoma Unspecified Lymph Nodes Of Axilla And Upper Limb (HCC) Expected: 06/03/2024, Expires: 12/01/2026 Creatinine with Estimated GFR Lab Routine Hodgkin Lymphoma Unspecified Lymph Nodes Of Axilla And Upper Limb (HCC) Expected: 06/03/2024, Expires: 12/01/2026 LD (Lactate Dehydrogenase) Lab Routine Hodgkin Lymphoma Unspecified Lymph Nodes Of Axilla And Upper Limb (HCC) Expected: 06/03/2024, Expires: 12/01/2026 Potassium Lab Routine Hodgkin Lymphoma Unspecified Lymph Nodes Of Axilla And Upper Limb (HCC) Expected: 06/03/2024, Expires: 12/01/2026 Scheduled Referrals Name Type Priority Associated Diagnoses Order Schedule Hematology office visit (clinic) [place]; Lymphoma; General Outpatient Referral Routine Expected: 06/03/2024 (Approximate), Expires: 03/03/2025 documented as of this encounter Visit Diagnoses Diagnosis Hodgkin Lymphoma Unspecified Lymph Nodes Of Axilla And Upper Limb (HCC)- Primary documented in this encounter Additional Health Concerns Infection Onset Date Last Indicated Resolved Time Protective Environment 07/19/2022 07/19/2022 Assessment Noted Time PHQ-9 Depression Total Score: 0 01/01/20 16 12:53 PM CDT documented as of this encounter Care Teams Milieu Counselor Relationship Specialty Start Date End Date Elsewhere, Pcp PCP - General Family Medicine 11/27/20 documented as of this encounter
--- OUTSIDE RECORDS SUMMARY | 2024-01-27 15:25 | XMS_ITS | Encounter Summary ---
Author Organization [facility] Address [address] [place] [address] Care Team Providers Care Annual Giving Manager Name Role Phone Elsewhere, Pcp Primary Care Provider Unavailabl e Reason for Referral * Outpatient (Routine) - Authorized Specialty Diagnoses / Procedures Referred By Contac t Referred To Contact Rheumatology Bárbara Soto APRN, C.N.P. [address] [place] [address] Phone: tel: fax: [facility] Referral ID Status Reason Start Date Expiration Date V isits Requested Visits Authorized [id number] Authorized 12/26/2023 06/26/2025 1 1 Reason for Visit * Outpatient (Routine) - Closed Specialty Diagnoses / Procedures Referred By Contac t Referred To Contact Rheumatology Bárbara Soto APRN, C.N.P. [address] [place] [address] Phone: tel: fax: [facility] Referral ID Status Reason Start Date Expiration Date Visits Re quested Visits Authorized [id number] Closed 09/18/2023 03/19/2025 1 1 Encounter Details Date Type Department Care Team (Latest Contact Info) Description 12/26/2023 2:45 PM CDT Office Visit Division of Rheumatology in [place], [place] [address] [place] [address] Bárbara Soto APRN, C.N.P. [address] [place] [address] Arthritis Psoriatic (HCC) (Primary Dx) Social History Tobacco Use Types Packs/Day Years Used Date Smoking Tobacco: Never Smokeless Tobacco: Never Alcohol Use Standard Drinks/Week Comments Yes 2 (1 standard drink = 0.6 oz pur e alcohol) [facility] Utilities Answer Date Recorded In the past 12 months has e [employer], gas, oil, or water company threatened to [...] often do you attend chur ch or tenriism services? Never 07/16/2022 Do you belong to any clubs o r organizations such as worship groups, unions, fraternal or athletic groups, or [...] and heating? Not hard at all 09/19/2022 [facility] of Occupat ional Health - Occupational Stress [...] Master's degree (e.g., MA, MS, Starla, MEd, CONCIERGE RECEPTIONIST, DEBRA) 09/16/2018 Sex and Gender Information Value Date Recorded Sex Assigned at Male 10/08/2017 8:25 AM CDT Legal Sex Male 10:56 PM HOUSE CARPENTER Gender Identity Male 10/08/2017 8:25 AM CDT Sexual Orientation Straight 10/08/2017 8: 25 AM CDT documented as of this encounter Last Filed Vital Signs Vital Sign Reading Time Taken Comments Blood Pressure 116/72 12/26/2023 2:36 PM CDT Pulse 85 12/26/2023 2:36 PM CDT Temperature 36.7 ??C (98.1 ??F) 12/26/2023 2:36 PM CD T Respiratory Rate - - Oxygen Saturation - - Inhaled Oxygen Concentration - - Weight 98.6 kg (217 lb 6 oz) 12/26/2023 2:36 PM CDT Height 177 cm (5' 9.69) 12/26/2023 2:36 PM CDT Body Mass Index 31.47 12/26/2023 2:36 PM CDT documented in this encounter Progress Notes * Bárbara Soto, JASON, C.N.P. - 12/26/2023 2:45 PM CDT Images from the original note [...] 04, 2020 and completed in February 2021. He suffered bilateral subdural hematoma on March 05, 2023. He had a craniotomy on March 08, 2023 at [facility]. He then had a TIA with expressive aphasia. RHEUMATIC DISEASE MEDICATION HISTORY Medication Start Date [...] for follow-up of his psoriatic arthritis. He saw Orthopedics on October 06, 2023 for his right foot pain. He will be getting fitted for new orthotics next week. He is having more pain in his left foot pain, which is worse then his right. He unfortunately missed a dose of Simponi Aria in his last dose of Simponi was August 11, 2023. We have been given the okay to restart Celebrex from cardiovascular. He continues to have cramping in his hands with increased activity. He continues to follow closely with Hematology for Hodgkin's lymphoma. He started Wegovy mid July in his lost 12.4 kg. He continues to take Simponi Aria 2 mg/kilogram IV infusion every 8 weeks, methot rexate 17.5 mg SQ once weekly, and folic acid 2 mg daily. Morning stiffness is not significant right now. He denies any adverse side effects to medications. Rheumatoid Arthritis AM stiffness: 0 minutes Current Symptoms: dry eyes (a little), dry mouth (in evening), fatigue (a little better), weight loss (12.4 kg since last fall) and dyspnea (easily with activity) Current Symptoms: no fever, no rash (no psoraisis), no excessive bruising, no cough, no chest pain,no edema, no nausea, no vomiting, no abdominal pain, no anorexia, no chills, no night sweats, no oral ulcers, no eye inflammation, no heartburn (prevacid) and no subcutaneous nodules Previous Reports Reviewed:lab reports and office notes The following portions of the patient's history were reviewed and updated as appropriate: family history, medical history, social history, surgical history and problem list. REVIEW OF SYSTEMS Pertinent positives and negatives as documented in the above history of present illness. Constitutional: Positive for fatigue (a little better), weight gain of more than 10 pounds and weight loss (12.4 kg since last fall). - Negative for chills, fever and night sweats. Skin: - Negative for skin rash (no psoraisis). ENT: Positive for difficulty hearing and persistent hoarse voice. Respiratory: - Negative for coughing and dry cough. Cardiovascular: - Negative for chest pain, pressure or tightness. Gastrointestinal: - Negative for abdominal (belly) pain or cramping, anorexia, heartburn (prevacid), nausea and vomiting. Musculoskeletal: Positive for pain [...] deformities in bilateral thumbs. Lab: CBC with differential is normal. Creatinine, GFR, and AST are normal. 12/24/2022 04/17/2023 09/18/2023 12/26/2023 Tender joint count (0-28) 6 3 6 0 Swollen joint count (0-28) 2 0 0 0 Patient global assessment (0-100) 56 63 74 73 Steam Presser global assessment (0-100) 40 45 45 45 ESR (mm/h) 4 -- 2 -- CRP (mg/L) 3 -- 3 -- Disease Activity Score 28 using ESR ([id number]) 3.52 -- 2.89 -- Disease Activity Score 28 using CRP ([id number]) 4.01 -- 3.87 -- Clinical Disease Activity Index (CDAI) 17.6 13.8 17.9 11.8 Simplified Disease Activity Index (SDAI) 17.9 -- 18.2 -- ASSESSMENT / PLAN #1 Arthritis Psoriatic (HCC) #2 Right ankle pain He continues to have worsening persistent pain in his hands and ankles. I believe this may be because he missed a dose of Simponi Aria that was supposed to be done at the end of September. We are going toadd back in Celebrex 100 mg twice a day, I hope this will also help control his pain better. He will be having his next Simponi Aria infusion on January 01, 2024. He will continue Simponi Aria 2 mg/kg every 8 weeks, methotrexate 17.5 mg subq once weekly and folic acid 2 mg daily. I refilled his prescriptions accordingly. Patient was in agreement with this plan. #3 High-risk [...] that he contact us at that time. BASDAI documented in this encounter Plan of Treatment Upcoming Encounters Date Type Department Care Team (Late st Contact Info) Description 02/26/2024 1:30 PM HOUSE CARPENTER Infusion Department of Infusion Therapy in [address] [phone] Bárbara Soto APRN, C.N.P. [address] [place] [phone] 03/03/2024 9:00 AM HOUSE CARPENTER Appointment Department of Laboratory Medicine in [address] [phone] Bárbara Soto APRN, C.N.P. [address] [place] [phone] 04/05/2024 10:30 AM HOUSE CARPENTER Virtual Visit Division of Endocrinology in [place], [place] [address] [place] [address] Get Ragland APRN, C.N.P., D.N.P. [address] [place] [address] Scheduled Orders Name Type Priority Associated Diagnoses Orde r Schedule CBC with Differential, Blood Lab Routine Arthritis Psoriatic (HCC) Expected: 03/26/2024 (Approximate), Expires: 12/25/2024 Sedimentation Rate Lab Routine Arthritis Psoriatic (HCC) Expected: 03/26/2024 (Approximate), Expires: 12/25/2024 CRP (C-Reactive Protein) Lab Routine Arthritis Psoriatic (HCC) Expected: 03/26/2024 (Approximate), Expires: 12/25/2024 Creatinine with Estimated GFR Lab Routine Arthritis Psoriatic (HCC) Expected: 03/26/2024 (Approximate), Expires: 12/25/2024 AST (Aspartate Aminotransferase) Lab Routine Arthritis Psoriatic (HCC) Expected: 03/26/2024 (Approximate), Expires: 12/25/2024 ALT (Alanine Aminotransferase) Lab Routine Arthritis Psoriatic (HCC) Expected: 03/26/2024, Expires: 03/26/2025 Scheduled Referrals Name Type Priority Associated Diagnoses Order Schedule Rheumatology office visit (clinic) Outpatient Referral Routine Expected: 03/26/2024 (Approximate), Expires: 03/26/2025 documented as of this encounter Visit Diagnoses Diagnosis Arthritis Psoriatic (HCC)- Primary documented in this encounter Additional Health Concerns Infection Onset Date Last Indicated Resolved Time Protective Environment 07/19/2022 07/19/2022 Assessment Noted Time PHQ-9 Depression Total Score: 0 01/01/20 16 12:53 PM CDT documented as of this encounter Care Teams Annual Giving Manager Relationship Specialty Start Date End Date Elsewhere, Pcp PCP - General Family Medicine 11/27/20 documented as of this encounter
--- OUTSIDE RECORDS SUMMARY | 2024-01-27 15:25 | XMS_ITS | Encounter Summary ---
Author Organization [facility] Address [address] [place] [address] Care Team Providers Care Gettering Filament Machine Operator Name Role Phone Elsewhere, Pcp Primary Care Provider Unavailabl e Reason for Visit * Reason Onset Date Comments Pre-visit Intake 12/16/2023 Encounter Details Date Type Department Care Team (Latest Contact Info) Description 12/16/2023 8:30 AM CDT Clinical Communication Virtual Review in [place], [place] [address] [place] [address] Pre-visit Intake Social History Tobacco Use Types Packs/Day Years Used Date Smoking Tobacco: Never Smokeless Tobacco: Never Tobacco Cessation:Counseling Given: Not Answered Alcohol Use Standard Drinks/Week Comments Yes 2 (1 standard drink = 0.6 oz pur e alcohol) [facility] Utilities Answer Date Recorded In the past 12 months has [employer], gas, oil, or water [employer] threatened to shut off services in your [...] How often do you attend chur or temple services? Never 07/16/2022 Do you belong to any clubs o r organizations such as congregational groups, unions, fraternal or athletic groups, or [...] and heating? Not hard at all 09/19/2022 [facility] of Occupat ional Health - [...] your living situation today? I have a [facility] place to live 09/06/2023 Education Answer Date Recorded What is the highest level of school you have completed or the highest degree you have received? Master's degree (e.g., MA, MS, Starla, MEd, WASHER ASSEMBLER, DEBRA) 09/16/2018 Sex and Gender Information Value Date Recorded Sex Assigned at Male 10/08/2017 8:25 AM CDT Legal Sex Male 10:56 PM CHILDREN'S LUNCHROOM SUPERVISOR Gender Identity Male 10/08/2017 8:25 AM CDT Sexual Orientation Straight 10/08/2017 8: 25 AM CDT documented as of this encounter Plan of Treatment Upcoming Encounters Date Type Department Care Team (Late st Contact Info) Description 02/26/2024 1:30 PM CHILDREN'S LUNCHROOM SUPERVISOR Infusion Department of Infusion Therapy in [address] [phone] Bárbara Soto, JASON, C.N.P. [address] [place] [phone] 03/03/2024 9:00 AM CHILDREN'S LUNCHROOM SUPERVISOR Appointment Department of Laboratory Medicine in [address] [phone] Bárbara Soto APRN, C.N.P. [address] [place] [phone] 04/05/2024 10:30 AM CHILDREN'S LUNCHROOM SUPERVISOR Virtual Visit Division of Endocrinology in [place], [place] [address] [place] [phone] Get Ragland APRN, C.N.P., D.N.P. [address] [place] [phone] documented as of this encounter Visit Diagnoses Not on filedocumented in this encounter Additional Health Concerns Infection Onset Date Last Indicated Resolved Time Protective Environment 07/19/2022 07/19/2022 Assessment Noted Time PHQ-9 Depression Total Score: 0 01/01/20 16 12:53 PM CDT documented as of this encounter Care Teams Gettering Filament Machine Operator Relationship Specialty Start Date End Date Elsewhere, Pcp PCP - General Family Medicine 11/27/20 documented as of this encounter
--- OUTSIDE RECORDS SUMMARY | 2024-01-27 15:25 | XMS_ITS | Encounter Summary ---
Author Organization [facility] Address [address] [place] [address] Care Team Providers Care Bevel Gear Generator Operator Name Role Phone Elsewhere, Pcp Primary Care Provider Unavailabl e Encounter Details Date Type Department Care Team (Late st Contact Info) Description 11/09/2023 Orders Only Division of Rheumatology in [place], [place] [address] [place] [phone] Bárbara Soto, COUNTRY PRINTER, C.N.P. [address] [place] [phone] Arthritis Psoriatic (HCC) (Primary Dx) Social History Tobacco Use Types Packs/Day Years Used Date Smoking Tobacco: Never Smokeless Tobacco: Never Alcohol Use Standard Drinks/Week Comments Yes 2 (1 standard drink = 0.6 oz pur e alcohol) [facility] Utilities Answer Date Recorded In the past 12 months has e electric, gas, oil, or water [employer] threatened to shut off services in your [...] How often do you attend chur or adventism services? Never 07/16/2022 Do you [...] and heating? Not hard at all 09/19/2022 [facility] of Occupat ional Health - Occupational Stress [...] a [facility] place to live 09/06/2023 Education Answer Date Recorded What is the highest level of school you have completed or the highest degree you have received? Master's degree (e.g., MA, MS, Starla, MEd, HORSERADISH GRINDER, DEBRA) 09/16/2018 Sex and Gender Information Value Date Recorded Sex Assigned at Male 10/08/2017 8:25 AM CDT Legal Sex Male 10:56 PM INTERNAL COMBUSTION ENGINE SUBASSEMBLER Gender Identity Male 10/08/2017 8:25 AM CDT Sexual Orientation Straight 10/08/2017 8: 25 AM CDT documented as of this encounter Plan of Treatment Upcoming Encounters Date Type Department Care Team (Late st Contact Info) Description 02/26/2024 1:30 PM INTERNAL COMBUSTION ENGINE SUBASSEMBLER Infusion Department of Infusion Therapy in [address] [phone] Bárbara Soto, COUNTRY PRINTER, C.N.P. [address] [place] [address] 03/03/2024 9:00 AM INTERNAL COMBUSTION ENGINE SUBASSEMBLER Appointment Department of Laboratory Medicine in [address] [phone] Bárbara Soto APRN, C.N.P. [address] [place] [address] 04/05/2024 10:30 AM INTERNAL COMBUSTION ENGINE SUBASSEMBLER Virtual Visit Division of Endocrinology in [place], [place] [address] [place] [address] Get Ragland APRN, C.N.P., D.N.P. [address] [place] [phone] documented as of this encounter Visit Diagnoses Diagnosis Arthritis Psoriatic (HCC)- Primary documented in this encounter Additional Health Concerns Infection Onset Date Last Indicated Resolved Time Protective Environment 07/19/2022 07/19/2022 Assessment Noted Time PHQ-9 Depression Total Score: 0 01/01/20 16 12:53 PM CDT documented as of this encounter Care Teams Bevel Gear Generator Operator Relationship Specialty Start Date End Date Elsewhere, Pcp PCP - General Family Medicine 11/27/20 documented as of this encounter
--- OUTSIDE RECORDS SUMMARY | 2024-01-27 15:25 | XMS_ITS | Encounter Summary ---
Author Organization [facility] Address [address] [place] [address] Care Team Providers Care Spring Tester Name Role Phone Elsewhere, Pcp Primary Care Provider Unavailabl e Reason for Visit * Reason Onset Date Comments Lab Monitoring 12/22/2023 Methotrexate Encounter Details Date Type Department Care Team (Latest Contact Info) Description 12/22/2023 Clinical Communication Division of Rheumatology in [place], [place] [address] [place] [address] Giulia Gayle, R.N. Lab Monitoring (Methotrexate) Social History Tobacco Use Types Packs/Day Years Used Date Smoking Tobacco: Never Smokeless Tobacco: Never Alcohol Use Standard Drinks/Week Comments Yes 2 (1 standard drink = 0.6 oz pur e alcohol) [facility] Utilities Answer Date Recorded In the past 12 months has e [employer], gas, oil, or water [employer] threatened to shut off services in your [...] How often do you attend chur or christian services? Never 07/16/2022 Do you belong to any clubs o r organizations such as christian groups, unions, fraternal or athletic groups, or [...] and heating? Not hard at all 09/19/2022 [facility] of Occupat ional Health - Occupational [...] your living situation today? I have a [facility] place to live 09/06/2023 Education Answer Date Recorded What is the highest level of school you have completed or the highest degree you have received? Master's degree (e.g., MA, MS, Starla, MEd, SEGMENT PRODUCER, DEBRA) 09/16/2018 Sex and Gender Information Value Date Recorded Sex Assigned at Male 10/08/2017 8:25 AM CDT Legal Sex Male 10:56 PM MECHANICAL DESIGN DRAFTER Gender Identity Male 10/08/2017 8:25 AM CDT Sexual Orientation Straight 10/08/2017 8: 25 AM CDT documented as of this encounter Miscellaneous Notes * Telephone Encounter - Giulia Gayle, RRebeccaN. - 12/22/2023 2:22 PM CDT Documentation note only, patient not contacted ASSESSMENT Rheumatology monitoring labs completed on 12/02/2023 for methotrexate monitoring were reviewed per provider order. Labs reviewed: absolute neutrophil count, ALT, AST, creatinine, hemoglobin, leukocytes, platelets Labs viewable in Labs Tab of Chart Review. PLAN Patient to continue with current plan of care. Patient next due for monitoring labs three months after last monitoring labs; these future lab orders were placed. documented in this encounter Plan of Treatment Upcoming Encounters Date Type Department Care Team (Late st Contact Info) Description 02/26/2024 1:30 PM MECHANICAL DESIGN DRAFTER Infusion Department of Infusion Therapy in [address] [phone] Bárbara Soto APRN, C.N.P. [address] [place] [phone] 03/03/2024 9:00 AM MECHANICAL DESIGN DRAFTER Appointment Department of Laboratory Medicine in [address] [phone] Bárbara Soto APRN, C.N.P. [address] [place] [phone] 04/05/2024 10:30 AM MECHANICAL DESIGN DRAFTER Virtual Visit Division of Endocrinology in [place], [place] [address] [place] [phone] Get Ragland APRN, C.N.P., D.N.P. [address] [place] [phone] Scheduled Orders Name Type Priority Associated Diagnoses Orde r Schedule CBC with Differential, Blood Lab Routine Medication Therapy Facility Attendant Not Anticoagulant Expected: 03/03/2024, Expires: 03/03/2024 AST (Aspartate Aminotransferase) Lab Routine Medication Therapy Facility Attendant Not Anticoagulant Expected: 03/03/2024, Expires: 03/03/2024 ALT (Alanine Aminotransferase) Lab Routine Medication Therapy Detention Not Anticoagulant Expected: 03/03/2024, Expires: 03/03/2024 Creatinine with Estimated GFR Lab Routine Medication Therapy Detention Not Anticoagulant Expected: 03/03/2024, Expires: 03/03/2024 documented as of this encounter Visit Diagnoses Diagnosis Medication Therapy Detention Not Anticoagulant- Primary documented in this encounter Additional Health Concerns Infection Onset Date Last Indicated Resolved Time Protective Environment 07/19/2022 07/19/2022 Assessment Noted Time PHQ-9 Depression Total Score: 0 01/01/20 16 12:53 PM CDT documented as of this encounter Care Teams Spring Tester Relationship Specialty Start Date End Date Elsewhere, Pcp PCP - General Family Medicine 11/27/20 documented as of this encounter
--- OUTSIDE RECORDS SUMMARY | 2024-01-27 15:25 | XMS_ITS | Encounter Summary ---
Author Organization [facility] Address [address] [place] [address] Care Team Providers Care Bill Hiker Name Role Phone Elsewhere, Pcp Primary Care Provider Unavailabl e Reason for Visit * Reason Onset Date Comments Pre-visit Intake 11/28/2023 Encounter Details Date Type Department Care Team (Latest Contact Info) Description 11/28/2023 8:30 AM CDT Clinical Communication Virtual Review in [place], [place] [address] [place] [phone] Pre-visit Intake Social History Tobacco Use Types Packs/Day Years Used Date Smoking Tobacco: Never Smokeless Tobacco: Never Alcohol Use Standard Drinks/Week Comments Yes 2 (1 standard drink = 0.6 oz pur e alcohol) [facility] Utilities Answer Date Recorded In the past 12 months has [facility] [employer], gas, oil, or water [employer] threatened to shut off services in your [...] often do you attend chur ch or jehovah's witness services? Never 07/16/2022 Do you belong to any clubs o r organizations such as cheondoism groups, unions, fraternal or athletic groups, or [...] heating? Not hard at all 09/19/2022 [facility] of Occupat ional Health - Occupational [...] your living situation today? I have a [facility] place to live 09/06/2023 Education Answer Date Recorded What is the highest level of school you have completed or the highest degree you have received? Master's degree (e.g., MA, MS, Starla, MEd, DISPENSING AND MEASURING OPTICIAN, DEBRA) 09/16/2018 Sex and Gender Information Value Date Recorded Sex Assigned at Male 10/08/2017 8:25 AM CDT Legal Sex Male 10:56 PM DIRECTOR OF CONTRACTS Gender Identity Male 10/08/2017 8:25 AM CDT Sexual Orientation Straight 10/08/2017 8: 25 AM CDT documented as of this encounter Plan of Treatment Upcoming Encounters Date Type Department Care Team (Late st Contact Info) Description 02/26/2024 1:30 PM DIRECTOR OF CONTRACTS Infusion Department of Infusion Therapy in [address] [phone] Bárbara Soto, JASON, C.N.P. [address] [place] [phone] 03/03/2024 9:00 AM DIRECTOR OF CONTRACTS Appointment Department of Laboratory Medicine in [address] [phone] Bárbara Soto APRN, C.N.P. [address] [place] [phone] 04/05/2024 10:30 AM DIRECTOR OF CONTRACTS Virtual Visit Division of Endocrinology in [place], [place] [address] [place] [phone] Get Ragland APRN, C.N.P., D.N.P. [address] [place] [phone] documented as of this encounter Visit Diagnoses Not on filedocumented in this encounter Additional Health Concerns Infection Onset Date Last Indicated Resolved Time Protective Environment 07/19/2022 07/19/2022 Assessment Noted Time PHQ-9 Depression Total Score: 0 01/01/20 16 12:53 PM CDT documented as of this encounter Care Teams Bill Hiker Relationship Specialty Start Date End Date Elsewhere, Pcp PCP - General Family Medicine 11/27/20 documented as of this encounter
[2024-01-27 15:32] LABS: INR 3.87 (0.91-1.10); Prothrombin Time 41.1 Seconds
== END 2024-01-27 16:02 | disposition home or self-care (01) ==
PROVIDERS: Emergency Provider Emergency Medicine Emergency Medical Services; PCP Internal Medicine
DX: I95.9 Hypotension, unspecified (principal)
CPT/HCPCS: 36415; 70450; 85610; 99284

== ENCOUNTER 2024-08-11 15:23 | Outpatient (CLI) | payer MEDICARE, BC, SELFPAY ==
--- NOTE | 2024-08-11 15:30 | CRLHL7_ITS ---
For Patients: As a result of the 21st Century Cures Act, medical imaging exams and procedure reports are released immediately into your electronic medical record. You may view this report before your referring provider. If you have questions, please contact your health care provider. EXAM: MRI OF THE RIGHT SHOULDER, WITHOUT CONTRAST CLINICAL INDICATION: Shoulder pain. PRIOR SURGERY: None reported. COMPARISON PLAIN FILMS: None available at time of interpretation. COMPARISON CROSS-SECTIONAL IMAGING STUDIES: None available at time of interpretation. TECHNICAL: Axial, sagittal oblique and coronal oblique T1, PD, PD FS and T2-weighted images. FINDINGS: GLENOHUMERAL JOINT: Effusion/Cyst: Physiologic quantity of joint fluid. No synovitis. No paralabral or periarticular cyst or ganglion. Humeral Head Articular Cartilage: No osteochondral lesion or abnormality. Glenoid Articular Cartilage: No osteochondral lesion or abnormality. Loose Bodies: No appreciable loose bodies. Capsule: No convincing evidence of adhesive capsulitis or capsular injury. OSSEOUS STRUCTURES: No fracture, marrow edema or marrow replacement process. CORACOACROMIAL ARCH: Acromial Morphology: Type 2 acromial morphology. No abnormal lateral or anterior downward sloping of the acromion. No os acromiale. Shallow subacromial sclerotic spur. Lateral acromial thickness is 7 mm. Acromiohumeral Interval: The acromiohumeral interval is adequately patent. At its narrowest, the interval measures 7 mm. No abnormal thickening of the coracoacromial ligament. Coracohumeral Interval: The coracohumeral interval is normal. At its narrowest, the coracohumeral interval measures greater than 10 mm. Coracoid index is 15 mm. ACROMIOCLAVICULAR JOINT REGION: AC Joint: Prominent hypertrophic arthrosis with small effusion. Hypertrophied joint osteophytes are prominent but do not cause significant mass effect on the underlying supraspinatus musculotendinous junction. Ligaments: The coracoclavicular ligaments are intact. BURSAE: Subacromial-Subdeltoid: Thin line of fluid under the acromion and proximal deltoid. Subcoracoid: No abnormal bursal edema, thickening or bursal fluid. ROTATOR CUFF TENDONS AND MUSCLES AND DELTOID: Supraspinatus: Thin 6-7 mm anterior to posterior articular linear tear in the central footplate. Intermediate signal tendinosis surrounds the thin low-grade linear tear. No atrophy or edema in the muscle. Infraspinatus: No tendinosis, tendon tearing, muscle atrophy or muscle edema. Teres Minor: No tendinosis, tendon tearing, muscle atrophy or muscle edema. Subscapularis: Moderate hazy and strandy intermediate signal tendinosis. Nearly 1 cm interstitial thin tear in the distal tendon into the insertion. No atrophy or edema in the muscle. Deltoid: No muscle atrophy or edema. BICEPS TENDON, LONG HEAD: Slight medial subluxation onto the top of the lesser tuberosity screw interstitial tear in the subscapularis. Minor intermediate signal and slight flattening of the contour in the subluxed tendon. Normal caliber and signal distally with no tenosynovitis. Intact anchor. GLENOID LABRUM: Partial tear at the labral chondral junction posterior superior margin. Posterior, inferior and anterior labrum are intact. Remainder of the superior labrum is intact. Tiny 3 millimeter probable paralabral cyst at the posterior superior margin. OTHER FINDINGS: There is no abnormality within the suprascapular or spinoglenoid notches nor within the quadrilateral space. No axillary adenopathy or mass. IMPRESSION: 1. Partial tear of the biceps mary mechanism with slight medial subluxation into the inserting subscapularis over the top of the lesser tuberosity. 2. Interstitial tear and moderate tendinosis subscapularis. 3. Shallow articular tear central supraspinatus footplate with some surrounding tendinosis. 4. Prominent hypertrophic arthrosis AC joint. 5. Trace subacromial/subdeltoid bursitis. 6. Tear along the labral chondral junction posterior superior labrum with adjacent probable small 3 mm paralabral cyst. Dictated by Marcell Smith MD @ 08/13/2024 8:38:58 AM (Electronically Signed)
== END 2024-08-11 15:24 | disposition home or self-care (01) ==
LOC: MRI 15:23
PROVIDERS: PCP Internal Medicine; Visit Provider Internal Medicine
DX: M25.511 Pain in right shoulder (principal); M75.101 Unspecified rotator cuff tear or rupture of right shoulder, not specified as traumatic; M75.51 Bursitis of right shoulder; S46.211A Strain of muscle, fascia and tendon of other parts of biceps, right arm, initial encounter; M67.911 Unspecified disorder of synovium and tendon, right shoulder
CPT/HCPCS: 73221

== ENCOUNTER 2024-09-27 13:00 | Outpatient (RCR) | payer MEDICARE, BC, SELFPAY ==
--- NOTE | 2024-09-13 15:09 | PT.OPEX ---
PT [facility] PT [facility] Outpatient Eval Start: 09/13/24 14:02 Freq: Status: Active Protocol: Document 09/13/24 14:02 LYNNE (Rec: 09/13/24 15:07 [facility] [id number]) E-signed By Krista Smith PT Physical Therapy Outpatient Evaluation Insurance Information Recert Due Date 12/11/24 Insurance Name Medicare B Medical Diagnosis RIGHT SHOULDER RTC TEAR, AC ARTHROSIS, SUBACROMIAL, SUBLUXATION OF LONG HEAD BICEPS TENDON Treating Diagnosis RIGHT SHOULDER PAIN RIGHT SHOULDER IMPINGEMENT Imaging Report MRI 08/11/24: Information 1. Partial tear of the biceps mary mechanism with slight medial subluxation into the inserting subscapularis over the top of the lesser tuberosity. 2. Interstitial tear and moderate tendinosis subscapularis. 3. Shallow articular tear central supraspinatus footplate with some surrounding tendinosis. 4. Prominent hypertrophic arthrosis AC joint. 5. Trace subacromial/subdeltoid bursitis. 6. Tear along the labral chondral junction posterior superior labrum with adjacent probable small 3 mm paralabral cyst. Referring MD SOTO Subjective Preferred Name RIC Subjective PATIENT REPORTS AN INSIDIOUS ONSET ~3-4 WEEKS AGO NOTING RIGHT UE NUMBNESS AT NIGHT OR ANYTIME HE IS SUPINE THAT RESOLVES WHEN RAISING HIS ARM. 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 HE IS HOPING TO MANAGE HIS SYMPTOMS AND AVOID AN SURGICAL INTERVENTION. Pain Comments -07/22 Date of Last 08/20/24 Physician Visit Current Work Status Retired Precautions Treatment PMHX: AORTIC ROOT ANEURYSM W/REPAIR, AORTIC VALVE Precautions/ REPLACEMENT, ANTICOAGULATION PRECAUTIONS, L CTS, Contraindications PEYRONIE'S DZ, CHRONIC PAIN SYNDROME, DEPRESSION, MATT, SARITA; TIA, SUBDURAL HEMATOMA W/CRANIOTOMY , LEFT RTC REPAIR, AORTIC DISSECTION, RIGHT CLAVICLE FX / DISPLACED, RIGHT LYMPH NODE (3) REMOVAL AXILLARY REGION, HODGKIN LYMPHOMA, EYAK W/AIDES Therapy Limitations/ Hearing Systems Review Assessment Assessment/ PATIENT IS A [address] SOTO TO EVAL AND Impression TREAT RIGHT RTC TEAR, AC ARTHROSIS, SUBLUXING BICEPS TENDON . PATIENT DEMONSTRATES SIGNS AND SYMPTOMS CONSISTENT WITH RIGHT RTC TEAR, AC ARTHROSIS, SUBLUXING BICEPS TENDON CONTRIBUTING TO THEIR FUNCTIONAL IMPAIRMENTS OF REACHING FWD, OVERHEAD, OUT TO SIDE, LAYING ON RIGHT SHOULDER . PATIENT DESCRIBES THE FOLLOWING TRIGGERS COOKING WITH POTS AND PANS, REACHING AND MANAGING COOKWARE WHICH ARE ALLEVIATED BY REST, ICE, TYLENOL. PATIENT HAS NOTABLE OBJECTIVE FINDING INCLUDING NORMAL ROM, MIN PAINFUL ARC, (+) HUG SIGN, PAIN W/RESISTED ER, MOD TTP ANTERIOR SHOULDER AT PROXIMAL BICEPS/SUBSCAP INSERTION WHICH ALL ARE CONTRIBUTING TO THE CLINICAL IMPRESSION. PATIENT IS A GOOD CANDIDATE FOR SKILLED PHYSICAL THERAPY TO ADDRESS AFOREMENTIONED DEFICITS ABOVE IN ORDER TO RETURN TO ( ASYMPTOMATIC STATUS AND RETURN TO UNRESTRICTED MVMTS). INTERVENTION IS NECESSARY BY WAY OF THERAPEUTIC EXERCISE, MANUAL THERAPY, NEUROMUSCULAR RE-EDUCATION, STABILIZATION/PROPRIOCEPTION, MODALITIES FOR SYMPTOM MGMT, PATIENT EDUCATION, DRY NEEDLING PLEASE REFER TO APPROPRIATE SECTION WITHIN THIS EVALUATION FOR COMPLETE LIST OF GOALS AND PLAN OF CARE. DISCHARGE PLAN AND CRITERIA IS FOR PATIENT TO ACHIEVE THE GOALS LISTED BELOW OR UNTIL MAX POTENTIAL MET. PATIENT VERBALIZED UNDERSTANDING AND AGREEABLE TO POC, FREQ, AND GOALS ESTABLISHED. Primary Functional REACHING FORWARD AND OUT TO SIDE WEIGHTED, SLEEPING ON Limitations SHOULDER Plan of Care Rehabilitation Good Potential Physical Therapy IN 4-8VISITS: Goals 1. DECREASE SHOULDER PAIN TO </2-3/10 WITH DAILY ACTIVITIES AND WITH THE PROGRESSION OF HIS HEP OVER THE NEXT 4 WEEKS. 2. DEMONSTRATE PAIN FREE AROM OVER THE NEXT 4-6 WEEKS DURING DAILY ACTIVITIES WITHOUT FLARE UPS OF SYMPTOMS. 3. PATIENT WILL VERBALIZED UNDERSTANDING OF POSTURING AND BODY MECHANICS IT RELATES TO DECREASING STRESS, IMPROVED SHOULDER MECHANICS, AND DECREASED SYMPTOMS. 4.PATIENT WILL DEMONSTRATES IMPROVED STRENGTH TO FACILITATE RETURN TO DAILY ACTIVITIES WITH LESS SYMPTOMS AND DECREASED OPPORTUNITIES FOR FLARE UP OF PAIN 5. PATIENT WILL BE INDEPENDENT WITH HIS INDIVIDUALIZED AND COMPREHENSIVE HEP WITHIN THE NEXT 6-8 WEEKS FOR PROGRESSION TWD ABOVE MENTION GOALS, CONTINUED MGMT OF SYMPTOMS, AND ONGOING SELF IMPROVEMENTS IN POSTURING/ STRENGTH/STABILIZATION. Coordination/ Referral Source Communication With Treatment Plan/ Dry Needling,Electrical Stimulation,Iontophoresis,Joint Direct Interventions Mobilization,Manual Therapy,Neuromuscular Re-ed,Self- Care/Home Management,Therapeutic Activities,Therapeutic Exercises,Ultrasound Frequency/Duration 1X/WK Patient Will Be Completion of LTG(s),Independently Progressing Discharged From Therapy Evaluation Billing Untimed Code 20 Treatment Minutes PT Eval No Charge No Complexity Moderate Certification Information Initial 09/13/24 Certification Date Ending Certification 12/11/24 Date Provider Signature Yes Required Provider Signature POC & Medical Necessity Shows Agreement With Physician NPI Number Write NPI# Here Physician Comment/ : Change Physician Signature Please Sign/Date Here & Date Requested
== END 2024-11-03 17:43 | disposition home or self-care (01) ==
PROVIDERS: PCP Internal Medicine; Visit Provider Internal Medicine
DX: M67.911 Unspecified disorder of synovium and tendon, right shoulder (principal); M67.921 Unspecified disorder of synovium and tendon, right upper arm; Z51.89 Encounter for other specified aftercare
CPT/HCPCS: 97110; 97162

== ENCOUNTER 2024-11-01 09:44 | Outpatient (CLI) | payer MEDICARE, BC, SELFPAY | END 2024-11-01 09:45 | disposition home or self-care (01) | LOC: NFLDREF 09:47 | PROVIDERS: PCP Internal Medicine; Visit Provider Internal Medicine | DX: I10 Essential (primary) hypertension (principal); Z51.81 Encounter for therapeutic drug level monitoring; Z79.01 Long term (current) use of anticoagulants | CPT/HCPCS: 82565; 85610 ==

== ENCOUNTER 2024-11-01 14:28 | Outpatient (CLI) | payer MEDICARE, BC, SELFPAY ==
--- NOTE | 2024-11-01 15:00 | CRLHL7_ITS ---
For Patients: As a result of the 21st Century Cures Act, medical imaging exams and procedure reports are released immediately into your electronic medical record. You may view this report before your referring provider. If you have questions, please contact your health care provider. INDICATION: Lump on ribcage. COMPARISON: Portions of an examination dated February 19, 2017. TECHNIQUE: : CT examination of the chest was performed following the uneventful intravenous administration of 75 cc of Isovue 370.Thin axial sections were obtained from the thoracic inlet through the lung bases. Please note that all CT scans at this facility use dose modulation, iterative reconstruction, and/or weight-based dosing when appropriate to reduce radiation dose to as low as reasonably achievable. FINDINGS: : HEART and MEDIASTINUM: The heart size is normal. There is no mediastinal or hilar adenopathy or mass. There has been endovascular stenting the distal aortic arch and descending thoracic aorta. This extends into the upper abdominal aorta. This was present on the prior study. No significant abnormal dilation of the aortic arch or descending thoracic aorta. Similar appearance to the prior study. There has been a median sternotomy and aortic valve repair. There is significant abnormal fusiform aneurysmal dilation of the ascending aorta immediately beyond the aortic valve. This maximally measures about 6.2 centimeters as measured from coronal image series 6, image 98. This is larger than 2017 when the measurement was closer to 4.9 centimeters. Follow-up formal cardiac evaluation is recommended as this is not a gated cardiac study or a formal vascular study. The aorta immediately above this aneurysmal dilation measures about 3.6 centimeters which is similar to the prior study LUNGS and PLEURAL SPACES: Linear opacities consistent with atelectasis or scarring. No focal consolidation, infiltrate or mass. No pleural effusion or pneumothorax. VISUALIZED UPPER ABDOMEN: Right renal cyst. Otherwise, the limited visualized upper abdominal structures appear normal. OSSEOUS STRUCTURES: No acute osseous abnormality. I do not see any abnormality involving the chest wall or the subjacent ribcage. TUBES and LINES: None. IMPRESSION: 1. No acute osseous abnormality. No observable abnormality involving the chest wall soft tissues or the subjacent ribcage. 2. Focal fusiform aneurysmal dilation of the proximal ascending aorta immediately beyond an aortic valve repair. This maximally measures about 6.2 centimeters. On the prior study of 2017, this measured approximately 4.9 centimeters. Follow-up evaluation is recommended. Please be aware that this is not a formal gated cardiac study or vascular study. 3. The ascending aorta immediately above the aneurysmal dilation is about 3.6 centimeters which is similar to the prior exam. Endovascular stenting of the distal aortic arch, descending thoracic aorta and proximal abdominal aorta without abnormal dilation similar to the remote study 4. Lungs show areas of atelectasis and scarring. 5. Other nonacute appearing findings as above Please note that all CT scans at this facility use dose modulation, iterative reconstruction, and/or weight-based dosing when appropriate to reduce radiation dose to as low as reasonably achievable. Dictated by Curly Hernandez MD @ 11/02/2024 4:18:43 PM (Electronically Signed)
== END 2024-11-01 14:29 | disposition home or self-care (01) ==
LOC: CT 14:30
PROVIDERS: PCP Internal Medicine; Visit Provider Internal Medicine
DX: R22.2 Localized swelling, mass and lump, trunk (principal); I71.21 Aneurysm of the ascending aorta, without rupture; I10 Essential (primary) hypertension; Z51.81 Encounter for therapeutic drug level monitoring; Z79.01 Long term (current) use of anticoagulants
CPT/HCPCS: 71260; 82565; 85610; Q9967

== ENCOUNTER 2024-11-15 15:11 | Emergency (ER) | payer MEDICARE, BC, SELFPAY ==
[2024-11-15 15:24] VITALS: BP 138/71; PULSE 83; RESP 18; TEMP 36.1; O2SAT 96; BMI 30.3
--- NOTE | 2024-11-15 15:58 | CRLHL7_ITS ---
For Patients: As a result of the Cures Act, medical imaging exams and procedure reports are released immediately into your electronic medical record. You may view this report before your referring provider. If you have questions, please contact your health care provider. INDICATION: Fall. Head injury. COMPARISON: None. TECHNIQUE: Noncontrast CT head. FINDINGS: Stable postop changes left frontal parietal craniotomy. Normal brain parenchymal morphology. No acute intracranial hemorrhage, acute infarct, focal edema, mass effect, or fracture. No midline shift. No abnormal ventricular dilatation. Normal skullbase. Visualized paranasal sinuses mastoid air cells are clear. Normal orbits bilaterally. IMPRESSION: 1. No acute intracranial abnormality. 2. Stable postop changes left frontoparietal craniotomy. Please note that all CT scans at this facility use dose modulation, iterative reconstruction, and/or weight-based dosing when appropriate to reduce radiation dose to as low as reasonably achievable. Dictated by Tuan Holcomb MD @ 11/15/2024 4:42:15 PM (Electronically Signed)
--- NOTE | 2024-11-15 16:18 | ED.HEATRA ---
HPI - Head Injury General Chief complaint: Head Injury/Pain Stated complaint: Hit head, dizzy Time Seen by Provider: 11/15/24 16:02 History of Present Illness HPI Narrative: This 69-year-old male comes in reporting headache and at times feeling off balance. He did hit his head a couple days ago but did not have loss of consciousness. He is taking Coumadin. He states that he did hit his head a couple years ago and was found to have a hemorrhage in his brain. He feels like the symptoms are somewhat similar this time. He does not report any neurologic deficits. Related Data Home Medications ?Medication ?Instructions ?Recorded ?Confirmed Medical Marijuana PO 11/22/21 11/01/24 acetaminophen 500 mg tablet 1,000 mg PO .Daily as needed PRN 11/22/21 11/01/24 atorvastatin 40 mg tablet 40 mg PO DAILY 11/22/21 11/01/24 cholecalciferol (vitamin D3) 25 2,000 unit PO DAILY 11/22/21 11/01/24 mcg (1,000 unit) tablet golimumab IV .[id number] 11/22/21 11/01/24 lansoprazole 30 mg capsule,delayed 30 mg PO DAILY PRN 11/22/21 11/01/24 release folic acid 1 mg tablet 2 mg PO QDAY 04/22/22 11/01/24 venlafaxine 150 mg 150 mg PO QDAY 04/22/22 11/01/24 capsule,extended release 24 hr venlafaxine 75 mg capsule,extended 75 mg PO QDAY 04/22/22 11/01/24 release 24 hr mirtazapine 7.5 mg tablet 7.5 mg PO QPM 12/03/22 11/01/24 triamcinolone acetonide 0.5 % 1 applic topical BID PRN 12/16/23 11/01/24 topical cream desvenlafaxine succinate 50 mg 50 mg PO DAILY 01/27/24 11/01/24 tablet,extended release 24 hr bupropion HCl 300 mg 24 hr tablet, 300 mg PO DAILY 07/01/24 11/01/24 extended release labetalol 100 mg tablet 100 mg PO BID 07/01/24 11/01/24 methotrexate sodium 25 mg/mL mg subcut QWEEK 08/20/24 11/01/24 injection solution semaglutide (weight loss) 2.4 2.7 mg subcut 11/01/24 11/01/24 mg/0.75 mL subcutaneous pen injector (Wegovy) Previous Rx's ?Medication ?Instructions ?Recorded furosemide 20 mg tablet (Lasix) 20 mg PO QDAY #90 tabs 03/14/22 losartan 100 mg tablet 100 mg PO DAILY #90 tabs 04/29/24 warfarin 5 mg tablet 5 mg PO QDAY #150 tabs 11/09/24 Allergies Allergy/AdvReac Type Severity Reaction Status Date / Time No Known Drug Allergies Allergy Verified 11/01/24 15:00 Review of Systems Status of ROS: Reports: 10 or more systems reviewed and unremarkable except as noted in History and below Narrative: Constitutional: No fevers, no weight gain or loss. Eyes: No discharge. No vision changes. HENT: No congestion, no sore throat, no ear pain. Cardiovascular: No chest pain, no palpitations. Respiratory: No shortness of breath, no wheezes, no cough. Gastrointestinal: No abdominal pain, no vomiting, no diarrhea. Genitourinary: No dysuria, no hematuria. Musculoskeletal: Normal range of motion. Skin: No rashes, no pruritis. Neurological: No weakness, sensory change, speech change. He reports episodes of feeling off balance. Endo/Heme/Allergies: No bruising or bleeding. No polydipsia. Pysch: no suicidality, no anxiety, no insomnia. All other systems reviewed and are negative. [facility] Medical History (Updated 11/15/24 @ 17:01 by Juan Reyes MD) History of TIA (transient ischemic attack) ?Z86.73 - Personal history of transient ischemic attack (TIA), and cerebral infarction without residual deficits (ICD-10) History of subdural hematoma ?Z86.79 - Personal history of other diseases of the circulatory system (ICD-10) History of Hodgkin's lymphoma ?Z85.71 - Personal history of Hodgkin lymphoma (ICD-10) Surgical History (Updated 08/27/23 @ 00:01 by Mckayla Lazo) History of craniotomy ?Z98.890 - Other specified postprocedural states (ICD-10) History of aortic dissection ?Z86.79 - Personal history of other diseases of the circulatory system (ICD-10) Status post aortic valve replacement ?Z95.2 - Presence of prosthetic heart valve (ICD-10) History of colonoscopy ?Z98.890 - Other specified postprocedural states (ICD-10) History of aortic valve repair ?Z98.890 - Other specified postprocedural states (ICD-10) ?Z86.79 - Personal history of other diseases of the circulatory system (ICD-10) History of ankle surgery ?Z98.890 - Other specified postprocedural states (ICD-10) History of incisional hernia repair ?Z98.890 - Other specified postprocedural states (ICD-10) ?Z87.19 - Personal history of other diseases of the digestive system (ICD-10) History of arthroscopy of shoulder ?Z98.890 - Other specified postprocedural states (ICD-10) History of surgery on wrist ?Z98.890 - Other specified postprocedural states (ICD-10) History of cataract surgery ?Z98.49 - Cataract extraction status, unspecified eye (ICD-10) History of colectomy ?Z90.49 - Acquired absence of other specified parts of digestive tract (ICD-10) History of uvulectomy ?Z90.89 - Acquired absence of other organs (ICD-10) History of vasectomy ?Z98.52 - Vasectomy status (ICD-10) Status post aortic aneurysm repair ?Z98.890 - Other specified postprocedural states (ICD-10) ?Z86.79 - Personal history of other diseases of the circulatory system (ICD-10) Social History (Updated 12/16/23 @ 10:56 by Promise Ricardo ~ [facility]) What is your current living situation?: I presently have a place to live Problems where you live: no known problems In the past 12 months, utilities in danger of being shut off: no In past 12 months, lack of transportation kept you from medical appts, meetings, work, or getting things needed for daily living: no In the past 12 mos, have been you worried that your food would run out before you had money to buy more?: never true In the past 12 mos, the food you bought just didn't last and you didn't have money to buy more?: never true Smoking Status: Former smoker Do you use any of these nicotine containing products: None Second hand tobacco smoke exposure: No How often do you have a drink containing alcohol: 4 or more times a week How many standard drinks containing alcohol do you have on a typical day: 1 or 2 How often do you have six or more drinks on one occasion: Never AUDIT-C Alcohol total score: 4 Non-prescribed substance use: denies use Non-prescribed substance use details: marijuana gummies for psoriatic arthritis nightly. How often does anyone, including family, friends and others, physically hurt you: never How often does anyone, including family, friends and others, insult or talk down to you: never How often does anyone, including family, friends and others, threaten you with harm: never How often does anyone, including family, friends and others, scream or curse at you: never service: No Exam Narrative: Exam Narrative: Constitutional: Well-developed, well-nourished, no acute distress. HEENT: Normocephalic, atraumatic. Neck: Normal range of motion. Nontender. Supple. Heart: Regular. No murmurs. Normal rate. Intact distal pulses. Lungs: Clear to auscultation. No chest discomfort. No wheezes, rhonchi, or rales. Abdomen: Normal bowel sounds. Nontender. No rebound tenderness. Genitalia: Deferred. Back: No midline tenderness. Normal range of motion. Extremities: Normal range of motion. No injury. Skin: Intact. No rash. Warm. No erythema or pallor. Neurologic: No altered sensation. No weakness. Alert and oriented. No facial asymmetry. Tongue is midline. [id number] is normal. No pronator drift. [employer] strength is equal bilaterally. Able to raise each leg from the bed. Psychiatric: No suicidality. No anxiety or depression. No insomnia. Nursing notes and vitals signs are reviewed. Const: Vital Signs, click to edit/add: Vital Signs - 24 hr 11/15/24 15:24 Temperature 97.0 F L Pulse Rate [Pulse Oximeter] 83 Respiratory Rate 18 Blood Pressure [Ri ght Upper Arm] 138/71 Pulse Oximetry 96 Oxygen Delivery Me thod Room Air Course Vital Signs Vital signs: Initial Vital Signs Temperature 97.0 F L 11/15/24 15:24 Temperature Source Temporal Artery Scan 11/15/24 15:24 Pulse Rate 83 11/15/24 15:24 Pulse Rhythm Regular 11/15/24 15:24 Respiratory Rate 18 11/15/24 15:24 Blood Pressure 138/71 11/15/24 15:24 Blood Pressure Mean 93 11/15/24 15:24 Blood Pressure Position Sitting 11/15/24 15:24 Pulse Oximetry 96 11/15/24 15:24 Oxygen Delivery Method Room Air 11/15/24 15:24 Vital Signs Temperature 97.0 F L 11/15/24 15:24 Pulse Rate 83 11/15/24 15:24 Respiratory Rate 18 11/15/24 15:24 Blood Pressure 138/71 11/15/24 15:24 Pulse Oximetry 96 11/15/24 15:24 Oxygen Delivery Method Room Air 11/15/24 15:24 Temperature 97.0 F L 11/15/24 15:24 Pulse Rate 83 11/15/24 15:24 Respiratory Rate 18 11/15/24 15:24 Blood Pressure 138/71 11/15/24 15:24 Pulse Oximetry 96 11/15/24 15:24 Oxygen Delivery Method Room Air 11/15/24 15:24 MDM - Head Injury MDM Narrative Medical decision making narrative: This patient comes in for evaluation of symptoms from a head injury. He states that he feels unsteady at times and does report a mild headache. He is on Coumadin. His neurologic exam is completely normal. A CT scan of his head is obtained and shows no acute findings. This was reassuring to him. He is exhibiting symptoms suggestive of a concussion. I did speak with him regarding prognosis and management of concussion symptoms. Imaging Data CT scan - head: Radiologist's impression: 1. No acute intracranial abnormality. 2. Stable postop changes left frontoparietal craniotomy. Discharge Plan Discharge Clinical Impression: Concussion Patient Disposition: Home, Self-Care Condition: Stable Additional Instructions: Continue current plans. Increase activity as tolerated. Follow up with MD return if worsening. Prescriptions: No Action atorvastatin 40 mg tablet 40 mg PO DAILY acetaminophen 500 mg tablet 1,000 mg PO .Daily as needed PRN Rx Instructions: NO MORE THAN 4000 MG/DAY cholecalciferol (vitamin D3) 25 mcg (1,000 unit) tablet 2,000 unit PO DAILY lansoprazole 30 mg capsule,delayed release(DR/EC) 30 mg PO DAILY PRN golimumab [Simponi ARIA] IV .[id number] Medical Marijuana PO folic acid 1 mg tablet 2 mg PO QDAY Patient Comments: TAKE 2 TABLETS BY MOUTH EVERY DAY venlafaxine 75 mg capsule,extended release 24hr 75 mg PO QDAY venlafaxine 150 mg capsule,extended release 24hr 150 mg PO QDAY bupropion HCl 300 mg tablet extended release 24 hr 300 mg PO DAILY labetalol 100 mg tablet 100 mg PO BID Wegovy 2.4 mg/0.75 mL pen injector 2.7 mg subcut mirtazapine 7.5 mg tablet 7.5 mg PO QPM methotrexate sodium 25 mg/mL solution subcut QWEEK triamcinolone acetonide 0.5 % cream 1 applic topical BID PRN desvenlafaxine succinate 50 mg tablet extended release 24 hr 50 mg PO DAILY furosemide [Lasix] 20 mg tablet 20 mg PO QDAY Qty: 90 3RF losartan 100 mg tablet 100 mg PO DAILY Qty: 90 3RF warfarin 5 mg tablet 5 mg PO QDAY Qty: 150 0RF Protocol: Dose Management Condition: Friday Dose/Route: 7.5 mg Instruction: 1.5 x 5 mg tablets Condition: Friday Dose/Route: 10 mg Instruction: 2 x 5 mg tablets Condition: Friday Dose/Route: 7.5 mg Instruction: 1.5 x 5 mg tablets Condition: Friday Dose/Route: 10 mg Instruction: 2 x 5 mg tablets Condition: Dose/Route: 7.5 mg Instruction: 1.5 x 5 mg tablets Condition: Friday Dose/Route: 10 mg Instruction: 2 x 5 mg tablets Condition: Friday Dose/Route: 7.5 mg Instruction: 1.5 x 5 mg tablets Protocol Text: Adjustment Start Date: Friday11/09/24 INR Value: 2.97 INR Date: 11/01/24 Recheck Date: 12/02/24 Rx Instructions: 10mg FRI/FRI/FRI and 7.5mg rest of the week Follow Up/Referrals: Gale Garcia MD [Primary Care Provider, Internal Medicine] Stand Alone Forms: Associated Content Info Instructions
== END 2024-11-15 17:09 | disposition home or self-care (01) ==
PROVIDERS: Emergency Provider Emergency Medicine Emergency Medical Services; PCP Internal Medicine
DX: S06.0X0A Concussion without loss of consciousness, initial encounter (principal); Z79.01 Long term (current) use of anticoagulants
CPT/HCPCS: 70450; 99284

== ENCOUNTER 2025-04-04 12:26 | Outpatient (CLI) | payer MEDICARE, BC, SELFPAY | END 2025-04-04 12:27 | disposition home or self-care (01) | LOC: NFLDREF 12:26 | PROVIDERS: PCP Internal Medicine; Visit Provider Internal Medicine | DX: Z51.81 Encounter for therapeutic drug level monitoring (principal); Z79.01 Long term (current) use of anticoagulants | CPT/HCPCS: 85610 ==